=== PATIENT | female | born 1940 | race Caucasian/White ===

== ENCOUNTER 2018-02-09 09:38 | Emergency (ER) | payer MEDICARE, OTHER, SELFPAY ==
--- NOTE | 2018-02-09 09:46 | DI.CT_ITS ---
SYMPTOM/DIAGNOSIS: HEAD PAIN, S/P FALL CT BRAIN: Noncontrast examination. No priors for comparison. The ventricles and sulci are consistent with the patient's age. There are areas of decreased attenuation in the white matter consistent with small vessel ischemic disease. No acute infarct, hemorrhage, midline shift or mass effect is identified. The ventricles are intact. The basilar cisterns are patent. The visualized paranasal sinuses are clear. No fluid levels are seen. The mastoid air cells are well pneumatized. The calvarium is intact. IMPRESSION: No acute intracranial process.
--- NOTE | 2018-02-09 09:47 | W.ED.GENAD ---
Discharge Plan Disposition Patient Disposition: HOME Condition: Good Discharge Details Chief Complaint: Dizzy/Sync Clinical Impression: Concussion, Lightheaded Primary Care Provider: Cecilia Curiel ED Provider: Jean Griffin Home Meds and New Rx's Prescriptions: New meclizine 25 mg tablet 25 mg PO TID PRN (Reason: dizziness) Qty: 20 RF: 0 No Action sennosides [senna] 8.6 MG tablet 17.2 mg PO HS RF: 0 red yeast rice 600 MG capsule 2 tab PO DAILY RF: 0 blood sugar diagnostic [[employer] Ultra Test] 1 EACH strip 1 ea Miscellaneous DAILY Qty: 100 RF: 4 lancets [OneTouch Delica Lancets] 1 EACH misc 1 ea Intradermal DAILY Qty: 100 RF: 3 metronidazole 45 GM gel 1 applic Topical DAILY Qty: 45 RF: 11 miconazole nitrate 45 GM cream 2 - 5 gm Topical DAILY Qty: 45 RF: 12 sulfacetamide sodium-sulfur 25 GM lotion 1 - 2 gm Topical HS PRNQty: 25 RF: 12 losartan 50 MG tablet 50 mg PO DAILY Qty: 90 RF: 4 ibuprofen 800 MG tablet 800 mg PO BID Qty: 180 RF: 4 ranitidine HCl 150 MG tablet 150 mg PO DAILY Qty: 90 RF: 12 metformin 500 MG tablet 500 mg PO BID Qty: 180 RF: 4 spironolactone 25 MG tablet 25 mg PO DAILY Qty: 90 RF: 4 acetaminophen 650 MG tablet 2 tab PO BID PRNQty: 180 RF: 0 gabapentin 300 MG capsule 300 mg PO BID Qty: 180 RF: 3 Discharge Instructions Instructions: Concussion (ED) Additional Instructions: follow up with your primary care provider this week use your walker to help prevent falls if you have fevers, difficulty breathing, or severe pain in the head return to the emergency department for reevaluation Medical Decision Making 77 yo female comes in with cc of feeling lightheaded and having a headache since she fell on . Around 3am she fell out of bed and hit the back of her head, denies loc but since has had intermittent nausea, feeling lightheaded and nausea. Denies chest pain or pressure or sob. She has no focal neuro deficits, NIH of 0. No fevres or other infectious symptoms to suggest underlying infection and no urinary symptoms to suggest uti. Will eval for tbi with head ct and eval for electrolyte abnormalities. Has normal tele while feeling lightheaded so doubt syncope/presyncope/arythmia. labs and imaging shows no acute findings. She has had normal tele and vital signs here. Suspect concussion from the fall. ADvised f/u with pcp this week and return precautions given, she was advised to use her walker as well until her symptoms resolve Differential Diagnosis concussion, electrolyte abnormality, tbi, sdh Imaging Data Radiologic Study: Attestation: I personally reviewed and interpreted this imaging study as follows: Imaging: CT Scan My impression: no acute findings Radiologist's impression: no acute findings Lab Data Lab results reviewed: Yes I reviewed the patient's lab results. ECG Data Attestation: I personally reviewed and interpreted this ECG (s) as follows: Prior ECG tracings: available for review Interpretation: rate of 85, sinus rhythm, pr 156, no acute st t wave changes compared to old ekg HPI General Mode of arrival: wheelchair. Date/Time Provider Initiated Documentation: 02/09/18 09:40. Limitations to Documentation: no limitations. Information obtained by: patient. History of Present Illness 77 year old F presents to the emergency department with the chief complaint of feeling lightheaded, described as moderate, Patient started experiencing this day(s) (3) and it has been constant. No relieving factors improve symptom(s), No exacerbating factors reported . Patient notes no other symptoms.. Patient did receive the following treatments prior to arrival, none Related Data Home Medications Medication Instructions Recorded Confirmed red yeast rice 2 tab PO DAILY 07/12/12 02/09/18 sennosides [senna] 17.2 mg PO HS tab-cap 07/12/12 04/18/17 blood sugar diagnostic [OneTouch #100 strip 02/25/15 Ultra Test] lancets [OneTouch Delica Lancets] #100 ea 02/25/15 metronidazole 1 applic TOPICAL DAILY #45 gm 02/27/16 02/09/18 miconazole nitrate 2 - 5 gm TOPICAL DAILY #45 gm 08/30/16 02/09/18 sulfacetamide sodium-sulfur 1 - 2 gm TOPICAL HS PRN #25 gm 03/28/17 02/09/18 ibuprofen 800 mg PO BID #180 tab-cap 04/02/17 02/09/18 losartan 50 mg PO DAILY #90 tab-cap 04/02/17 02/09/18 ranitidine HCl 150 mg PO DAILY #90 tab-cap 04/02/17 02/09/18 acetaminophen 2 tab PO BID PRN #180 tab-cap 09/19/17 02/09/18 gabapentin 300 mg PO BID #180 tab-cap 09/19/17 02/09/18 metformin 500 mg PO BID #180 tab-cap 09/19/17 spironolactone 25 mg PO DAILY #90 tab 09/19/17 02/09/18 meclizine 25 mg PO TID PRN #20 tab 02/09/18 Previous Rx's Medication Instructions Recorded ibuprofen 800 mg PO BID #180 tab-cap 04/02/17 losartan 50 mg PO DAILY #90 tab-cap 04/02/17 ranitidine HCl 150 mg PO DAILY #90 tab-cap 04/02/17 gabapentin 300 mg PO BID #180 tab-cap 09/19/17 metformin 500 mg PO BID #180 tab-cap 09/19/17 spironolactone 25 mg PO DAILY #90 tab 09/19/17 meclizine 25 mg PO TID PRN #20 tab 02/09/18 Allergies Allergy/AdvReac Type Severity Reaction Status Date / Time amoxicillin trihydrate Allergy Severe RASH Unverified 02/09/18 09:54 [From Augmentin] Penicillins Allergy Severe Skin Rash Unverified 02/09/18 09:54 potassium clavulanate Allergy Severe RASH Unverified 02/09/18 09:54 [From Augmentin] aspirin AdvReac Intermediate CONFUSION, Unverified 02/09/18 09:54 TAKES IBUPROFEN OKAY pravastatin AdvReac Intermediate MYALGIAS Unverified 02/09/18 09:54 simvastatin AdvReac Intermediate MUSCLE PAIN Unverified 02/09/18 09:54 CO-Q10 AdvReac Mild MUSCLE PAIN Uncoded 02/09/18 09:54 Review of Systems Review of Systems All systems reviewed & are unremarkable except as noted in HPI and below Constitutional Denies chills and Denies fever(s) Eyes Denies loss of vision ENT Denies change in voice Cardiovascular Denies dyspnea Respiratory Denies dyspnea Gastrointestinal Denies abdominal pain and Denies vomiting Genitourinary Denies dysuria Musculoskeletal Denies joint swelling Integumentary/Breasts Denies rash Neurologic Denies loss of vision Psychiatric Denies depression Endocrine Denies cold intolerance and Denies heat intolerance Allergic/Immunologic Denies urticaria PFSH Family History Mother Black lung disease Chronic obstructive lung disease Father Neoplasm Sister No problems noted. Sister No problems noted. Brother Non-Hodgkin's lymphoma Brother No problems noted. Brother No problems noted. Grandfather No problems noted. Grandfather No problems noted. Grandmother Diabetes Neoplasm Grandmother No problems noted. Son No problems noted. Son No problems noted. Daughter No problems noted. Daughter No problems noted. Daughter No problems noted. Daughter No problems noted. Social History Smoking/Tobacco Use Status: Never Surgical History Extraction of cataract (~12/2007) Total replacement of hip Exam Const General: no acute distress Orientation: alert HENMT Ears: external ears normal General nose exam: external nose normal Mouth: moist mucous membranes Eyes General: appearance normal, both eyes and all related structures Neck Neck: normal visual inspection Resp Effort & Inspection: normal respiratory effort and able to speak in complete sentences Cardio Rate: regular rate Skin General skin exam: no rashes or lesions noted Neuro General: alert and oriented x3 Extrem General: normal to inspection Psych Mental Status: mental status grossly normal
[2018-02-09 09:49] VITALS: BP 152/78; PULSE 89; RESP 20; TEMP 36.7; O2SAT 97
[2018-02-09 10:05] VITALS: RESP 20
[2018-02-09 10:07] LABS: Abs Immature Grans 0.01 k/cumm (0.0-0.09); Absolute Basophil Count 0.04 k/cumm (0.0-0.2); Absolute Eosinophil Count 0.38 k/cumm (0.0-0.7); Absolute Monocyte Count 0.67 k/cumm (0.11-0.7); Absolute Neutrophil Count 5.15 k/cumm (1.2-6.7); Basophils % 0.5; Eosinophils % 4.7; HCT 41.3 % (36.0-46.0); HGB 13.3 g/dL (12.0-15.5); Immature Grans % 0.1; Lymphocytes % 23.3; Mean Corp. HGB Concentration 32.2 g/dL (32.0-36.0); Mean Corpuscular Hemoglobin 30.9 pg (27.0-33.0); Mean Platelet Volume 9.8 fL (8.0-11.0); Monocytes % 8.2; Neutrophils % 63.2; Platelet Count 263 x1000/uL (130-400); RBC Distribution Width 14.2 % (11.7-14.6); White Blood Cell Count 8.15 k/cumm (4.4-10.8)
[2018-02-09 10:23] LABS: ALT 20 U/L (12-78); AST 13 U/L (15-37); Albumin 3.7 g/dL (3.4-5.0); Alkaline Phosphatase 92 U/L (46-116); Anion Gap 11.3 mmol/L (3-11); BUN 37 mg/dL (7-18); Bilirubin, Total 0.4 mg/dL (0.2-1.0); CO2 23.7 mmol/L (21.0-32.0); CREATININE 1.17 mg/dL (0.55-1.02); Calcium 9.2 mg/dL (8.5-10.1); Chloride 102 mmol/L (98-107); Estimated GFR 45.09 (mL/min/1.73m2); Glucose 126 mg/dL (70-100); Potassium 4.5 mmol/L (3.5-5.1); Sodium 137 mmol/L (136-145); Total Protein 7.6 g/dL (6.4-8.2)
[2018-02-09 10:24] LABS: Troponin I < 0.02 ng/mL (0.00-0.06)
[2018-02-09 10:31] LABS: PTT Activated 19.2 sec (21.0-31.4); Prothrombin Time 9.8 sec (9.3-10.8)
--- NOTE | 2018-02-09 10:50 | DI.VRAD_ITS ---
EXAM: CT Head Without Intravenous Contrast EXAM DATE/TIME: 02/09/2018 9:48 AM CLINICAL HISTORY: 77 years old, female; Pain; Headache; Other: After fall TECHNIQUE: Axial computed tomography images of the head/brain without intravenous contrast. Coronal and sagittal reformatted images were created and reviewed. COMPARISON: No relevant prior studies available. FINDINGS: Brain: No acute intracranial hemorrhage. There is mild diffuse heterogeneity of the white matter attenuation, consistent with chronic white matter ischemic changes. Mild cerebral atrophy Ventricles: Normal. No ventriculomegaly. Bones/joints: Normal. No acute fracture. Sinuses: Normal as visualized. No acute sinusitis. Mastoid air cells: Normal as visualized. No mastoid effusion. Orbits: Surgical device in the left globe Soft tissues: Normal. IMPRESSION: No acute intracranial hemorrhage. Dictated and Authenticated by: Markos Cervantes MD. Ordering:CHARLES KEARNS MD
[2018-02-09 11:28] VITALS: BP 152/78; PULSE 89; RESP 20; TEMP 36.7; O2SAT 97
== END 2018-02-09 11:25 | disposition home or self-care (01) ==
PROVIDERS: Emergency Provider Emergency Medicine; PCP Family Medicine
DX: R42 Dizziness and giddiness (principal); S06.0X0A Concussion without loss of consciousness, initial encounter; W06.XXXA Fall from bed, initial encounter; R11.0 Nausea; R51 Headache; E11.9 Type 2 diabetes mellitus without complications; Z79.84 Long term (current) use of oral hypoglycemic drugs; I10 Essential (primary) hypertension
CPT/HCPCS: 80053; 93005; 99285; 70450; 83735; 84484; 85025; 85610; 85730; 93010

== ENCOUNTER 2018-07-13 10:34 | Emergency (ER) | payer MEDICARE, OTHER, SELFPAY ==
[2018-07-13 10:39] VITALS: BP 167/72; PULSE 90; RESP 20; TEMP 36.8; O2SAT 97
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
== END 2018-07-13 10:59 | disposition home or self-care (01) ==
LOC: ER 11:04
PROVIDERS: Emergency Provider Student in an Organized Health Care Education/Training Program; PCP Family Medicine
DX: S51.821A Laceration with foreign body of right forearm, initial encounter (principal); V49.9XXA Car occupant (driver) (passenger) injured in unspecified traffic accident, initial encounter; E11.9 Type 2 diabetes mellitus without complications; I10 Essential (primary) hypertension; Z79.84 Long term (current) use of oral hypoglycemic drugs
CPT/HCPCS: 99282

== ENCOUNTER 2019-01-16 09:09 | Outpatient (CLI) | payer MEDICARE, OTHER, SELFPAY ==
[2019-01-16 10:05] LABS: COMMENT (LAB VIEW ONLY) 59.67 mg/dL; Microalb ug/mg Crea 12.4 ug/mg Cr
[2019-01-16 10:35] LABS: ALT 19 U/L (14-59); AST 15 U/L (15-37); Albumin 3.8 g/dL (3.4-5.0); Alkaline Phosphatase 93 U/L (46-116); Anion Gap 11.2 mmol/L (3-11); BUN 32 mg/dL (7-18); Bilirubin, Total 0.4 mg/dL (0.2-1.0); CO2 23.8 mmol/L (21.0-32.0); CREATININE 1.38 mg/dL (0.55-1.02); Calcium 9.5 mg/dL (8.5-10.1); Calculated LDL 172 mg/dL; Chloride 105 mmol/L (98-107); Cholesterol 251 mg/dL (50-200); Estimated GFR 37.17 (mL/min/1.73m2); Glucose 134 mg/dL (70-100); HDL Cholesterol 49 mg/dL (40-60); Potassium 5.3 mmol/L (3.5-5.1); Sodium 140 mmol/L (136-145); Total Protein 7.4 g/dL (6.4-8.2); Triglyceride 150 mg/dL (30-150)
[2019-01-16 15:15] LABS: Hemoglobin A1C 6.9 % (4.5-6.2)
== END 2019-01-16 09:29 ==
PROVIDERS: PCP Family Medicine; Visit Provider Family Medicine
DX: E11.9 Type 2 diabetes mellitus without complications (principal); E78.5 Hyperlipidemia, unspecified
CPT/HCPCS: 36415; 80053; 80061; 82043; 82570; 83036

== ENCOUNTER 2019-06-01 12:37 | Emergency (ER) | payer MEDICARE, OTHER, SELFPAY ==
[2019-06-01 12:46] VITALS: BP 149/68; PULSE 94; RESP 16; TEMP 36.4; O2SAT 98
[2019-06-01 12:49] VITALS: RESP 14
--- NOTE | 2019-06-01 13:00 | DI.CT_ITS ---
EXAM: CT HEAD WO CLINICAL HISTORY: fall, head injury TECHNIQUE: Noncontrast COMPARISON: CT HEAD WO from 02/09/2018 FINDINGS: No intracranial hemorrhage, mass or infarct is seen. There is no evidence of skull fracture. The v entricles are normal in size. There is no significant atrophy. IMPRESSION: Negative head CT.
--- NOTE | 2019-06-01 14:06 | ED.GENADUL_ITS ---
Discharge Plan Disposition Patient Disposition: HOME Condition: Stable Discharge Details Chief Complaint: GenMedical Clinical Impression: Head injury, Injury of nose Primary Care Provider: Cecilia Curiel ED Provider: Flex Banks Home Meds and New Rx's Prescriptions: Continued (DME) OneTouch Ultra Test 1 EACH strip 1 ea Miscellaneous DAILY Qty: 100 RF: 4 (DME) lancets [OneTouch Delica Lancets] 1 EACH misc 1 ea Intradermal DAILY Qty: 100 RF: 3 metronidazole 45 GM gel 1 applic Topical DAILY Qty: 45 RF: 11 acetaminophen 650 MG tablet 2 tab PO BID PRNQty: 180 RF: 0 rosuvastatin [Crestor] 10 mg tablet 10 mg PO DAILY Qty: 90 RF: 4 gabapentin 300 mg capsule 300 mg PO BID Qty: 180 RF: 3 ibuprofen 800 mg tablet 800 mg PO BID Qty: 180 RF: 4 metformin 500 mg tablet 500 mg PO BID Qty: 180 RF: 4 losartan 50 mg tablet 50 mg PO DAILY Qty: 90 RF: 4 red yeast rice 600 mg capsule 1,200 mg PO DAILY Qty: 180 RF: 4 sennosides [senna] 8.6 mg tablet 17.2 mg PO HS Qty: 180 RF: 4 sulfacetamide sodium-sulfur 10-5 % (w/v) lotion 1 applic Topical HS PRN (Reason: rash) Qty: 25 RF: 6 famotidine 20 mg tablet 20 mg PO DAILY Qty: 90 RF: 5 spironolactone 25 mg tablet 25 mg PO BID Qty: 180 RF: 4 Discharge Instructions Instructions: Head Injury (ED), Nasal Contusion (ED) Additional Instructions: Cold compresses every 2 hours for 20 minutes. Oicz-efe-hkobcen medications as directed for symptomatic control. Please watch for new or worsening symptoms and return to the ER for any concerns. As we discussed, if the swelling goes down in the next 3-5 days and you notice a nasal deformity that is following up with ENT or plastic surgery would be recommended. Otherwise I recommend contacting your primary care provider for prompt outpatient reevaluation Medical Decision Making 79-year-old female who is not anticoagulated for mechanical slip and fall injuring her nose. This occurred around 8 AM. She appears well, nontoxic, no active epistasis, and she is neurologically intact. Will update tetanus and obtain CT imaging of head and brain without contrast. Patient and family are comfortable with this plan. Abrasion to the nose not require closure CT imaging negative per radiology Discussed findings with patient and family. They have no additional questions or concerns and are comfortable with discharge. We did discuss that films specifically of the nose were not taken. Once the swelling goes down if there is a nasal deformity that outpatient follow-up with plastic surgery or ENT is likely indicated. Encouraged to return to the ER for new or worsening symptoms Medical Records Medical records reviewed: Yes I reviewed the patient's medical records. Imaging Data Radiologic Study: Imaging: CT Scan Radiologist's impression: CT head without contrast read by radiology as negative HPI General Mode of arrival: ambulatory . Date/Time Provider Initiated Documentation: 06/01/19 12:55 . Limitations to Documentation: no limitations . Information obtained by: patient and family . HPI Narrative: 79-year-old female who had a mechanical trip and fall at home, falling forward striking her nose and breaking her glasses. She reports bleeding from her right nostril and having a small abrasion to her nose. Denies any LOC, headache, neck pain, other injury. Patient does not anticoagulated. She reports the pain at her nose is moderate. Denies any symptoms preceding the fall Related Data Home Medications Medication Instructions Recorded Confirmed OneTouch Ultra Test #100 strip 02/25/15 02/17/19 lancets [OneTouch Delica Lancets] #100 ea 02/25/15 02/17/19 metronidazole 1 applic TOPICAL DAILY #45 gm 02/27/16 02/17/19 acetaminophen 2 tab PO BID PRN #180 tab-cap 09/19/17 02/17/19 rosuvastatin 10 mg tablet 10 mg PO DAILY #90 tab 03/05/19 gabapentin 300 mg capsule 300 mg PO BID #180 tab-cap 04/06/19 ibuprofen 800 mg tablet 800 mg PO BID #180 tab-cap 04/06/19 losartan 50 mg tablet 50 mg PO DAILY #90 tab-cap 04/06/19 metformin 500 mg tablet 500 mg PO BID #180 tab-cap 04/06/19 red yeast rice 600 mg capsule 1,200 mg PO DAILY #180 cap 04/06/19 sennosides 8.6 mg tablet 17.2 mg PO HS #180 tab-cap 04/06/19 sulfacetamide sodium-sulfur 10 %-5 1 applic TOPICAL HS PRN #25 gm 04/06/19 % (w/v) lotion famotidine 20 mg tablet 20 mg PO DAILY #90 tab 04/07/19 spironolactone 25 mg tablet 25 mg PO BID #180 tab 04/14/19 Previous Rx's Medication Instructions Recorded rosuvastatin 10 mg tablet 10 mg PO DAILY #90 tab 03/05/19 gabapentin 300 mg capsule 300 mg PO BID #180 tab-cap 04/06/19 ibuprofen 800 mg tablet 800 mg PO BID #180 tab-cap 04/06/19 losartan 50 mg tablet 50 mg PO DAILY #90 tab-cap 04/06/19 metformin 500 mg tablet 500 mg PO BID #180 tab-cap 04/06/19 red yeast rice 600 mg capsule 1,200 mg PO DAILY #180 cap 04/06/19 sennosides 8.6 mg tablet 17.2 mg PO HS #180 tab-cap 04/06/19 sulfacetamide sodium-sulfur 10 %-5 1 applic TOPICAL HS PRN #25 gm 04/06/19 % (w/v) lotion famotidine 20 mg tablet 20 mg PO DAILY #90 tab 04/07/19 spironolactone 25 mg tablet 25 mg PO BID #180 tab 04/14/19 Allergies Allergy/AdvReac Type Severity Reaction Status Date / Time amoxicillin trihydrate Allergy Severe RASH Unverified 02/17/19 10:33 [From Augmentin] Penicillins Allergy Severe Skin Rash Unverified 02/17/19 10:33 potassium clavulanate Allergy Severe RASH Unverified 02/17/19 10:33 [From Augmentin] aspirin AdvReac Intermediate CONFUSION, Unverified 02/17/19 10:33 TAKES IBUPROFEN OKAY pravastatin AdvReac Intermediate MYALGIAS Unverified 02/17/19 10:33 simvastatin AdvReac Intermediate MUSCLE PAIN Unverified 02/17/19 10:33 CO-Q10 AdvReac Mild MUSCLE PAIN Uncoded 02/17/19 10:33 General Stated Complaint: GenMedical KELLEN: 4 Review of Systems Constitutional Constitutional: Denies headache(s) and Denies weakness Eyes Eyes: Denies change in vision ENT Ears, Nose, Mouth, and Throat: Denies headache(s) Cardiovascular Cardiovascular: Denies chest pain and Denies dyspnea Respiratory Respiratory: Reports cough and Denies dyspnea Gastrointestinal Gastrointestinal: Denies abdominal pain, Denies nausea and Denies vomiting Musculoskeletal Musculoskeletal: Denies back pain, Denies numbness and Denies tingling Integumentary/Breasts Skin/Breast: Denies rash Neurologic Neurologic: Denies headache(s), Denies numbness, Denies tingling and Denies weakness [facility] Medical History Aftercare following explantation of hip joint prosthesis (Inactive 06/27/14) Aftercare for long-term (current) use of antibiotics (Inactive 06/27/14) B12 deficiency (Inactive) Infection and inflammatory reaction due to internal joint prosthesis (Inactive 06/27/14) 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 Sister No problems noted. Brother , 47 Non-Hodgkin's lymphoma Brother No problems noted. Brother No problems noted. Maternal Grandfather No problems noted. Paternal Grandfather No problems noted. Maternal Grandmother Diabetes Breast cancer Paternal Grandmother No problems noted. Son No problems noted. Son No problems noted. Daughter No problems noted. Daughter No problems noted. Daughter No problems noted. Daughter No problems noted. Social History Smoking/Tobacco Use Status: Never Alcohol Intake: current Alcohol Intake frequency: a few times a month Alcohol type: wine and hard liquor Drug use: Never Substance use type: does not use Caregiver/Support person: Yes Household members: spouse Housing: house Communication Needs: None Do you need help understanding health information?: Rarely Pets and animals: No Sexually active: Yes Do you think of yourself as: straight/heterosexual Current gender identity: female What is your relationship status?: How often do you talk on the phone with friends or family?: once per week How often do you get together with friends or relatives?: once per week How often do you attend restorationism or religion services?: 4 or more times per year Do you belong to any clubs or organized social groups?: yes Panel score (0-1 are the most socially isolated patients): 3 What type of physical activity do you participate in: running Duration: 15-30 minutes/day Frequency: 3-4 times per week Effie/Yazdanism: Restorationism Special effie needs: No Seatbelt use: always Drive intox or ride 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 Do you feel safe at home: Yes Do you feel safe in your relationship?: Yes Exam Const General: cooperative, healthy appearing, comfortable and no acute distress Orientation: alert and awake HENMT Head: normal to inspection, no palpable skull fracture, normocephalic and atraumatic Ears: external ears normal, TM's normal bilaterally and EAC's normal General nose exam: epistaxis bilaterally (No active bleeding, dried crusted blood bilaterally) and external nose abnormal nasal abrasion and other (Swelling and ecchymosis, no deformity) Face and sinus: normal facial exam Mouth: moist mucous membranes Throat: posterior oropharynx normal Eyes General: appearance normal, both eyes and all related structures Alignment and Position: alignment normal Periorbital: periorbital findings normal Eyelids: eyelids normal Conjunctivae: conjunctivae normal Sclera: sclerae normal Cornea: corneas normal Pupils: PERRL EOM: EOM intact bilaterally Direct ophthalmoscopy: normal light reflex Neck Neck: normal visual inspection, full ROM, trachea midline and supple Resp Effort & Inspection: normal respiratory effort and able to speak in complete sentences Auscultation: clear to auscultation bilaterally Cardio Rate: regular rate Rhythm: regular rhythm GI Palpation: soft and nontender Back/Spine/Pelvis Back: No back tenderness Skin General skin exam: no rashes or lesions noted Neuro General: alert, awake, oriented x3, moves all extremities and no focal motor deficits Cranial Nerves: CN's II-XI intact bilaterally Cognition: normal cognition Speech: speech normal Gait: normal gait Motor: muscle tone normal throughout and strength 5/5 throughout Sensory Exam: no sensory deficits noted Extrem General: normal to inspection and full ROM Psych Appearance: grossly normal Mental Status: mental status grossly normal Course Vital Signs Vital signs: Vital Signs Temperature 36.4 C L 06/01/19 12:46 Pulse 94 H 06/01/19 12:46 Respiratory Rate 16 06/01/19 12:46 Blood Pressure 149/68 H 06/01/19 12:46 Pulse Oximetry 98 06/01/19 12:46 Temperature 36.4 C L 06/01/19 12:46 Temperature Source Tympanic 06/01/19 12:46 Pulse 94 H 06/01/19 12:46 Respiratory Rate 14 06/01/19 12:49 Respiratory Effort Non-Labored 06/01/19 12:49 Blood Pressure 149/68 H 06/01/19 12:46 Blood Pressure Position Sitting 06/01/19 12:46 Pulse Oximetry 98 06/01/19 12:46 Oxygen Delivery Method Room Air 06/01/19 12:46 Oxygen Flow Rate 0 06/01/19 12:46
[2019-06-01 14:40] VITALS: BP 113/60; PULSE 94; RESP 20; TEMP 36.7; O2SAT 97
== END 2019-06-01 14:59 | disposition home or self-care (01) ==
PROVIDERS: Emergency Provider Physician Assistant; PCP Family Medicine
DX: S00.31XA Abrasion of nose, initial encounter (principal); S09.90XA Unspecified injury of head, initial encounter; R04.0 Epistaxis; W01.10XA Fall on same level from slipping, tripping and stumbling with subsequent striking against unspecified object, initial encounter
CPT/HCPCS: 90471; 99284; 70450

== ENCOUNTER 2019-12-14 03:06 | Outpatient (CLI) | payer MEDICARE, OTHER, SELFPAY ==
[2019-12-14 09:52] LABS: ALT 14 U/L (14-59); AST 10 U/L (15-37); Albumin 3.8 g/dL (3.4-5.0); Alkaline Phosphatase 69 U/L (46-116); Anion Gap 8.6 mmol/L (3-11); BUN 20 mg/dL (7-18); Bilirubin, Total 0.4 mg/dL (0.2-1.0); CO2 26.4 mmol/L (21.0-32.0); CREATININE 1.13 mg/dL (0.55-1.02); Chloride 107 mmol/L (98-107); Estimated GFR 46.69 (mL/min/1.73m2); Glucose 138 mg/dL (74-106); Potassium 4.8 mmol/L (3.5-5.1); Sodium 142 mmol/L (136-145); Total Protein 7.1 g/dL (6.4-8.2)
== END 2019-12-14 03:26 ==
PROVIDERS: PCP Family Medicine; Visit Provider Family Medicine
DX: E11.9 Type 2 diabetes mellitus without complications (principal); I10 Essential (primary) hypertension
CPT/HCPCS: 36415; 80053

== ENCOUNTER 2020-03-31 03:39 | Outpatient (CLI) | payer MEDICARE, OTHER, SELFPAY ==
[2020-03-31 12:52] LABS: COMMENT (LAB VIEW ONLY) 74.32 mg/dL; Microalb ug/mg Crea 6.7 ug/mg Cr
[2020-03-31 12:58] LABS: ALT 23 U/L (14-59); AST 13 U/L (15-37); Alkaline Phosphatase 70 U/L (46-116); BUN 24 mg/dL (7-18); Bilirubin, Total 0.4 mg/dL (0.2-1.0); Calcium 9.3 mg/dL (8.5-10.1); Calculated LDL 82 mg/dL (<100); Chloride 107 mmol/L (98-107); Cholesterol 157 mg/dL (<200); Estimated GFR 43.56 (mL/min/1.73m2); Glucose 138 mg/dL (74-106); HDL Cholesterol 48 mg/dL (40-60); Potassium 4.9 mmol/L (3.5-5.1); Sodium 141 mmol/L (136-145); Total Protein 7.3 g/dL (6.4-8.2); Triglyceride 136 mg/dL (<150)
[2020-03-31 13:36] LABS: Hemoglobin A1C 7.2 % (<5.7)
== END 2020-03-31 03:59 ==
PROVIDERS: PCP Family Medicine; Visit Provider Family Medicine
DX: E11.9 Type 2 diabetes mellitus without complications (principal); E78.5 Hyperlipidemia, unspecified; I10 Essential (primary) hypertension
CPT/HCPCS: 36415; 80053; 80061; 82043; 82570; 83036

== ENCOUNTER 2020-07-14 21:28 | Outpatient (REF) | payer MEDICARE, OTHER, SELFPAY ==
[2020-07-14 14:19] LABS: Hemoglobin A1C 7.3 % (<5.7)
== END 2020-07-14 21:29 | disposition home or self-care (01) ==
LOC: LBN 21:28
PROVIDERS: PCP Family Medicine; Visit Provider Family Medicine
DX: E11.9 Type 2 diabetes mellitus without complications (principal)
CPT/HCPCS: 83036

== ENCOUNTER 2021-04-06 03:09 | Outpatient (CLI) | payer MEDICARE, OTHER, SELFPAY ==
--- NOTE | 2021-04-06 06:45 | DI.CT_ITS ---
Exam(s) CT NECK W EXAM: CT NECK W CLINICAL HISTORY: right angle jaw pain and fullness.r22.9. TECHNIQUE: Imaging Protocol: Axial computed tomography images with coronal and sagittal reformatted images were created and reviewed. CONTRAST MATERIAL: Intravenous: Omnipaque 350 Contrast volume:100 mL COMPARISON: CT CT HEAD WO from 06/01/2019 FINDINGS: There is artifact from the patient's dental amalgam. Orbits and orbital soft tissues: Within normal limits. Visualized paranasal sinuses: There is mild mucosal thickening in the maxillary sinuses bilaterally. No fluid levels are seen. The mastoid air cells are clear. Nasopharynx: Within normal limits. Oropharynx: Within normal limits. Hypopharynx: Within normal limits. Larynx: Within normal limits. Retropharyngeal space: Within normal limits. Parotids/submandibular: There is a 0.6 x 0.5 cm round enhancing lesion in the right parotid gland. It lies near where the marker was placed on the skin surface. The parotid and submandibular glands a re otherwise unremarkable. Thyroid gland: Within normal limits. Lymphadenopathy: There is scattered lymph nodes seen along the level one to level three all measurin g less than 8 mm in short axis diameter which are physiologic in nature. Trachea: Within normal limits. Lung apices: Within normal limits. Bones: Within normal limits. Carotids/Jugular: Atherosclerosis. Soft tissues: Within normal limits. IMPRESSION: 0.6 cm round homogeneously enhancing nodule in the right parotid gland. The finding is nonspecific d ifferential considerations include intraparenchymal lymph node, Warthin's tumor or neoplasm. RADIATION DOSE DELIVERED: 560.08mGy.cm Total DLP DATA REPOSITORY: All CT scans at this facility are submitted to the National Radiology Data Registry (NRDR) Dose Index Registry (DIR) with the [employer] (ACR). RADIATION OPTIMIZATION: All CT scans at this facility use at least one of these dose optimization te chniques: automated exposure control; mA and/or kV adjustment per patient size (includes targeted exa ms where dose is matched to clinical indication); or iterative reconstruction.
[2021-04-06 08:50] LABS: ESR 35 mm/hr (0-30)
[2021-04-06 08:51] LABS: Abs Immature Grans 0.03 10^3/uL (0.0-0.06); Absolute Basophil Count 0.07 10^3/uL (0.0-0.2); Absolute Lymphocyte Count 1.53 10^3/uL (1.2-3.4); Absolute Monocyte Count 0.68 10^3/uL (0.1-0.8); Basophils % 0.9; Eosinophils % 3.7; HCT 39.9 % (36.0-46.0); HGB 12.2 g/dL (11.2-15.7); Immature Grans % 0.4; Lymphocytes % 18.6; MCH 29.8 pg (27.0-33.0); MCHC 30.6 % (32.0-36.0); MCV 97.3 fL (80-95); MPV 9.6 fL (8.0-11.0); Monocytes % 8.3; Neutrophils % 68.1; Nucleated RBC 0 %; Platelet Count 233 10^3/uL (130-400); RDW 14.1 % (11.7-14.6); WBC 8.21 10^3/uL (4.4-10.8)
[2021-04-06 09:01] LABS: CREATININE 1.3 mg/dL (0.55-1.02); Estimated GFR 39.61 (mL/min/1.73m2)
[2021-04-06] MEDS: Omnipaque 350 MG/ML 100 ML BTL IJ (09:32)
== END 2021-04-06 03:29 ==
PROVIDERS: PCP Family Medicine; Visit Provider Family Medicine
DX: R22.9 Localized swelling, mass and lump, unspecified (principal); D49.0 Neoplasm of unspecified behavior of digestive system
CPT/HCPCS: 70491; 85652; 82565; 85025; J3490

== ENCOUNTER 2021-10-03 03:20 | Outpatient (CLI) | payer MEDICARE, OTHER, SELFPAY ==
[2021-10-03 12:41] LABS: COMMENT (LAB VIEW ONLY) 28.85 mg/dL; Microalb ug/mg Crea 18.4 ug/mg Cr
[2021-10-03 12:42] LABS: Hemoglobin A1C 7.3 % (<5.7)
[2021-10-03 12:43] LABS: ALT 21 U/L (14-59); AST 14 U/L (15-37); Albumin 3.8 g/dL (3.4-5.0); Alkaline Phosphatase 76 U/L (46-116); Anion Gap 11.7 mmol/L (3-11); BUN 27 mg/dL (7-18); Bilirubin, Total 0.3 mg/dL (0.2-1.0); CO2 23.3 mmol/L (21.0-32.0); CREATININE 1.2 mg/dL (0.55-1.02); Calcium 9.1 mg/dL (8.5-10.1); Calculated LDL 65 mg/dL (<100); Chloride 105 mmol/L (98-107); Cholesterol 141 mg/dL (<200); Estimated GFR 43.34 (mL/min/1.73m2); Glucose 155 mg/dL (74-106); HDL Cholesterol 52 mg/dL (40-60); Potassium 4.7 mmol/L (3.5-5.1); Sodium 140 mmol/L (136-145); Total Protein 7.4 g/dL (6.4-8.2); Triglyceride 121 mg/dL (<150)
== END 2021-10-03 03:21 | disposition home or self-care (01) ==
LOC: LOS 03:21
PROVIDERS: PCP Family Medicine; Visit Provider Family Medicine
DX: E78.5 Hyperlipidemia, unspecified (principal); I10 Essential (primary) hypertension; E11.9 Type 2 diabetes mellitus without complications
CPT/HCPCS: 36415; 80053; 80061; 82043; 82570; 83036

== ENCOUNTER 2021-10-09 21:36 | Emergency (ER) | payer MEDICARE, OTHER, SELFPAY ==
[2021-10-09] VITALS (18 sets, daily range): BP systolic 143–164; BP diastolic 71–90; PULSE 82–93; RESP 11–26; TEMP 36.6; O2SAT 83–98
--- NOTE | 2021-10-09 21:45 | RT.EKG_ITS ---
APPROVED REPORT Exam: Resting ECG Reason for Exam: chest pain Patient Location: E HR:93 bpm ECG Measurements Heart Rate 93 AXIS NY 211 P 28 QRSd 104 QRS 80 QT 354 T 8 QTc 441 Conclusion Sinus rhythm...normal P axis, V-rate 60- 99 Borderline prolonged NY interval...NY >207, V-rate 91-120
--- OUTSIDE RECORDS SUMMARY | 2021-10-09 21:46 | XMS_ITS | Encounter Summary ---
:1940 Author Organization [facility] [place] [address] Care Team Providers Name Role Phone Cecilia Curiel MD Primary Care Provider Reason for Visit Reason Comments Aftercare Of [facility] THR rev 10/19/2014 Encounter Details Date Type Department Care Team Description 10/25/2016 Office Visit Orthopaedics at [facility] Noe Peraza, Status post revision of tota l hip replacement, LEFT Dr. Arriola DOS: 10/19/2014; [facility] Status post total replacement [place] [address] [place] [address] ORTHOPAEDIC SURGERY [place], [place] [address] Social History Tobacco Use Types Packs/Day Years Used Date Never Smoker Smokeless Tobacco: Never Used Alcohol Use Standard Drinks/Week Comments Yes 2.5 (1 standard drink = 0.6 oz pure alco hol) occasionally Alcohol Habits Answer Date Recorded How often do you have a drink containing alcohol? Not asked How many drinks containing alcohol do you have on a Not aske d typical day when you are drinking? How often do you have six or more drinks on one occasion? No t asked Comment: occasionally 01/26/2014 Sex Assigned at Date Recorded Not on file documented as of this encounter Last Filed Vital Signs Vital Sign Reading Time Taken Comments Blood Pressure 113/46 10/25/2016 1:12 PM EDT Pulse 84 10/25/2016 1:12 PM EDT Temperature - - Respiratory Rate - - Oxygen Saturation - - Inhaled Oxygen Concentration - - Weight 101.2 kg (223 lb) 10/25/2016 1:12 PM EDT pt repo rted Height 157.5 cm (5' 2) 10/25/2016 1:12 PM EDT pt repor terri Body Mass Index 40.79 10/25/2016 1:12 PM EDT documented in this encounter Progress Notes Noe Peraza PA - 10/25/2016 1:30 PM EDT Arthroplasty/Orthopaedic History: 1. Left MILTON 05/14/12 Dr. Monte ([facility]) 2. I+D Left hip wound 05/01/13, Dr. Monte 3. I+D and vac placement 07/07/13, Dr. Monte 4. R MILTON September 21, 2009 Dr. Monte 5. S/P Dr. Arriola s/p Left hip explant and antibiotic spacer on 06/23/2014. MSSA treated with Ceftriaxone 6. Dr. Arriola DOS: 10/19/2014 Reimplantation of MILTON after antibiotic spacer. HPI: Marcia Palma is a very pleasant 76 y.o. year-old female and is now 2 and 7 years post bilateral total hip replacement and total hip revision The patient has been doing great, no pains. The patient is not having any pain.. No fevers, chills, nausea, vomiting, or symptoms of infection. Marcia has been ambulating with no assistive device and a cane. Patient denies any signs or symptoms of infection, groin pain, thigh pain, sense of instability. Patient is happy with her progress status post multiply infected multiply revised hip. 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 ROS: Denies: fever, chills, night sweats, nausea, or vomiting BP 113/46 Pulse 84 Ht 157.5 cm (5' 2) Comment: pt reported Wt (!) 101.2 kg (223 lb) Comment:pt reported BMI 40.79 kg/m2 Physical Exam: Well-appearing female in no acute distress. Alert and Oriented x 3 and answers all questions appropriately. I have made the following determinations: Post Op Right Hip Exam: Leg length: Longer leg: equal Limb Length discrepancy: 0cm Motion: Flexion contracture: 0 Total degrees of Flexion:90 Total degrees of Abduction:30 Total degrees of Ext Rotation: 25 Total degrees of Internal Rotation: 15 Gait Abnormality: Normal Pulses Palpable: Right PT: Yes Right DP:Yes Motor/Sensory: Right Distal Motor: Normal Distal Sensory: Normal Hip Abductors 5 Trendelenburg test: negative Post Op Left Hip Exam: Leg Length: Longer leg: equal Limb Length discrepancy: 0cm Motion: Flexion contracture: 0 Total degrees of Flexion: 90 Total degrees of Abduction: 30 Total degrees of Ext Rotation: 20 Total degrees of Internal Rotation: 10 Gait Abnormality: Normal Pulses Palpable: Left PT: Yes Left DP: Yes Motor/Sensory: Left Distal Motor: Normal Distal Sensory: Normal Hip Abductors: 5 Trendelenburg test: negative Negative log roll and axial load test bilaterally. X-RAYS: Multiple radiographic views were obtained at my request and reviewed with the patient. X-rays show a well-placed prosthesis with no evidence of fracture, subsidence, loosening, or periprosthetic complication. No interval change., no eccentric wear. Questionnaire Responses: [facility] Surgical Postop Visit 10/25/2016 PROMIS-10 General Health Very Good PROMIS-10 Quality of Life Very Good PROMIS-10 Physical Health Very Good PROMIS-10 Mental Health Very Good PROMIS-10 Social Activity Excellent PROMIS-10 Everyday Activities Not at all PROMIS-10 Pain 0 -No Pain PROMIS-10 Fatigue Moderate PROMIS-10 Social Roles Excellent PROMIS-10 Anxious or Depressed Never PROMIS PHYSICAL HEALTH SCORE 42.3 PROMIS MENTAL HEALTH SCORE 59 HOOS JR Scores 76.78 Problems with surgical incision/wound after surgery No Gone to ER since knee surgery No Admitted to hospital since recent ortho surgery No Additional surgery on same body part No MILTON Grade 10 Pain in other HIP None Back pain at this moment None Satisfaction with Treatment Satisfied Choose Same Treatment Again Definitely yes Orthopead[facility] Response 10/25/2016 HOOS JR Scores 76.78 OSWESTRY DISABILITY INDEX - Spine [facility] Response 10/25/2016 Oswestry (RAQUEL) Score - HOOS JR Scores 76.78 ASSESSMENT/PLAN: Ms. Palma is a 76 y.o. year old female status post bilateral total hip replacement and total hip revision Doing well postoperatively. Continue weightbearing as tolerated and working on range of motion. We will see her back in 3 years for repeat examination. X-rays will be needed at that time. Patient may return to normal activities as her pain and function allow. We reviewed monitoring for infection, continuing home exercise program. We discussed the appropriate precautions surrounding dental prophylaxis; according to the AAOS Appropriate Use Criteria we do recommend antibiotic use prior to dental procedures for Marcia. Recommended antibiotic: Amoxicillin (50mg/kg, maximum 2 gm) 1 hour prior to dental work; dose: 2 grams prior If Marcia has any changes in health status we recommend she contact our office prior to dental procedures for updated recommendations We also discussed maintaining good foot care and giving prompt attention to any source of infection throughout the body including foot ulcers and urinary tract infections. All questions were answered. Signed: ASUNCION SANCHEZ 10/25/2016 documented in this encounter Plan of Treatment Not on filedocumented as of this encounter Visit Diagnoses Diagnosis Status post revision of total hip replac ement, LEFT Dr. Arriola DOS: 10/19/2014 Hip joint replacement by other means Status post total replacement of right h ip documented in this encounter Care Teams Store Detective Relationship Specialty Start Date End Date Cecilia Curiel MD PCP - General Family Medicine 10/26/[address] [place] [address] [address] [place] [address] documented as of this encounter
--- OUTSIDE RECORDS SUMMARY | 2021-10-09 21:46 | XMS_ITS | Encounter Summary ---
:1940 Author Organization [facility] Address [address] [place] [address] Care Team Providers Name Role Phone Cecilia Curiel MD Primary Care Provider Reason for Visit Reason Comments Aftercare Of Tjr Lt MILTON Rev DOS 10/19/14 Encounter Details Date Type Department Care Team Description 10/26/2015 Office Visit Orthopaedics at [facility] [place] Noe Peraza, Status post revision [facility] of total hip Drive [facility] replacement[place] [address] Arriola DOS: [phone] ORTHOPAEDIC 10/19/2014 (Prim tiffany SURGERY Dx) [place], [place] [address] Social History Tobacco Use Types [...] Sign Reading Time Taken Comments Blood Pressure 127/52 10/26/2015 1:40 PM EDT Pulse 90 10/26/2015 1:40 PM EDT Temperature - - Respiratory Rate - - Oxygen Saturation - - Inhaled Oxygen Concentration - - Weight 101.3 kg (223 lb 6.4 10/26/2015 1:40 PM fully cl othed oz) EDT Height 158.8 cm (5' 2.5) 10/26/2015 1:40 PM with shoes EDT Body Mass Index 40.21 10/26/2015 1:40 PM EDT documented in this encounter Progress Notes Noe Peraza PA - 10/26/2015 2:00 PM EDT Arthroplasty/Orthopaedic History: 1. Left MILTON 05/14/12 Dr. Monte ([facility]) 2. I+D Left hip wound 05/01/13, Dr. Monte 3. I+D and vac placement 07/07/13, Dr. Monte 4. R MILTON September 21, 2009 Dr. Monte 5. S/P Dr. Arriola s/p Left hip explant and antibiotic spacer on 06/23/2014. MSSA treated with Ceftriaxone 6. Dr. Arriola DOS: 10/19/2014 Reimplantation of MILTON after antibiotic spacer. HPI: Marcia Palma is a very pleasant 75 y.o. year-old female who presents for a 1 years follow-up of the above procedure. The patient has been doing well and her pain is markedly improved over preoperative status. No fevers, chills, nausea, vomiting, or symptoms of infection. Marcia has been ambulating with no assistive device. Patient denies systemic symptoms of infection, incision site concerns. Patient denies groin pain, thigh pain, sense of instability, or leg length discrepancy. She is yet to be to the dentist after this revision surgery. She inquires today about antibiotics prior to the dental plan. Physical Exam: Well-appearing female in no acute distress. Alert and Oriented x 3 and answers all questions appropriately. Hip Exam: Left Leg Length: Longer leg: equal Limb Length discrepancy: 0cm Motion: Flexion contracture: 0 Total degrees of Flexion: 120 Total degrees of Abduction: 35 Total degrees of Ext Rotation: 10 Total degrees of Internal Rotation: 20 Gait Abnormality: Normal Pulses Palpable: Left PT: Yes Left DP: Yes Motor/Sensory: Left Distal Motor: Normal Distal Sensory: Normal Hip Abductors: 5 Trendelenburg test: negative X-RAYS: Multiple radiographic views were obtained at my request and reviewed with the patient. X-rays show a well-placed prosthesis with no evidence of fracture, subsidence, loosening, or periprosthetic complication. No evidence of eccentric wear, or interval change when comparing prior films. Questionnaire Responses: [facility] Surgical Postop Visit 10/26/2015 PROMIS-10 General Health Very Good PROMIS-10 Quality of Life - PROMIS-10 Physical Health - PROMIS-10 Mental Health Very Good PROMIS-10 Social Activity Very Good PROMIS-10 Everyday Activities Moderately PROMIS-10 Pain 0 -No Pain PROMIS-10 Fatigue Mild PROMIS-10 Social Roles Good PROMIS-10 Anxious or Depressed - PROMIS PHYSICAL HEALTH SCORE 0 PROMIS MENTAL HEALTH SCORE 0 Gone to ER since knee surgery No Admitted to hospital since recent ortho surgery No Additional surgery on same body part No Orthopeadics [facility] Response 10/26/2015 HOOS-PS Scores 20 OSWESTRY DISABILITY INDEX - Spine [facility] Response 12/13/2011 Oswestry (RAQUEL) Score 40 ASSESSMENT/PLAN: Ms. Palma is a 75 y.o. year old female 1 years post-op and doing well. Continue weightbearing as tolerated and working on range of motion, and we will see her back in 1 years for repeat examination. X-rays will be needed at that time. Patient may return to normal activities as her pain and function allow. We discussed monitoring for infection, treating any infections with later or at least seek evaluation. Patient is happy with her result, and will monitor for infection. We had a long discussion in regards to antibiotic prophylaxsis prior to dental procedures. We discussed the most recent data, indications for prophylactic antibiotics which include but are not limited to current or recent cancer, chemotherapy medications, immune system disorders, immune system compromising medications, HIV, hepatitis, diabetes, or history of prosthetic joint infection. Otherwise, if healthy, prophylactic antibiotics are not indicated and if taken, there is a risk of breeding antibiotic resistance along with side effect vs. adverse reaction such as anaphylaxis. We discussed with herprior history of infection, we would likely keep her on antibiotics prior to dental appointments. All questions were answered. Signed: ASUNCION SANCHEZ 10/26/2015 documented in this encounter Plan of Treatment Not on filedocumented as of this encounter Visit Diagnoses Diagnosis Status post revision of total hip replac ement, SHERRY Arriola DOS: 10/19/2014 - Primary Hip joint replacement by other means documented in this encounter Care Teams Cio Relationship Specialty Start Date End Date Cecilia Curiel MD PCP - General Family Medicine 10/26/15 [address] [place] [address] documented as of this encounter
--- OUTSIDE RECORDS SUMMARY | 2021-10-09 21:46 | XMS_ITS | Encounter Summary ---
:1940 Author Organization [facility] Address [address] [place] [address] Care Team Providers Name Role Phone Nayla Caputo MD Primary Care Provider Reason for Visit Reason Comments Aftercare Of Tjr Lt MILTON REV 10/19/14 Encounter Details Date Type Department Care Team Description 11/29/2014 Office Visit Orthopaedics [place] [facility] [place] Status post revision [facility] Petar Garza MD [facility] [place] [address] replacement, [place] [address] Flako DOS: [phone] 10/19/2014 (Prim tiffany Dx) Social History Tobacco Use Types Packs/Day Years [...] Sign Reading Time Taken Comments Blood Pressure 132/80 11/29/2014 10:57 AM EDT Pulse 71 11/29/2014 10:57 AM EDT Temperature 36.6 ??C (97.8 ??F) 11/29/2014 10:57 AM EDT oral Respiratory Rate - - Oxygen Saturation - - Inhaled Oxygen Concentration - - Weight 90.3 kg (199 lb) 11/29/2014 10:57 AM EDT clothed Height 157.5 cm (5' 2) 11/29/2014 10:57 AM EDT Body Mass Index 36.4 11/29/2014 10:57 AM EDT documented in this encounter Progress Notes Petar Garza MD - 11/29/2014 11:53 AM EDT I have seen the patient and reviewed Angela Davidson APRN's history/physical and I agree with the details as written. The assessment and plan were formulated in discussion with me and I agree with them as documented. No pain in hip. Off pain meds. Discharged from rehab and now home. Using cane. Wound healed with no signs of infection. F/u in 8 weeks with repeat xrays. Questionnaire Responses: myD-H Hip & Knee 12/13/2011 01/26/2014 04/12/2014 06/14/2014 08/02/2014 10/04/2014 11/29/2014 MODEMS Expectation 100 37.5 100 75 - 100 - MODEMS Satisfaction - - - - 100 - 33.33 VR12 - Physical Component Summary - 28.71 30.83 26.09 30.16 16.41 39.81 VR12 - Mental Component Summary - 57.58 63.97 64.83 71.08 68.8 66.22 PROMIS-10 General Health - Good Good Very Good Very Good - Very Good PROMIS-10 Quality of Life - Good Good Good Very Good Very Good Very Good PROMIS-10 Physical Health - Good Fair Good Very Good Very Good Very Good PROMIS-10 Mental Health - Very Good Good Very Good Excellent Very Good Excellent PROMIS-10 Social Activity and Relationship Satisfaction - Good Very Good Very Good Excellent Very Good Excellent PROMIS-10 Social Roles at Home and Work - Fair Good Fair Very Good Poor Excellent PROMIS-10 Everyday Physical Activities - Moderately Not at all A little A little Not at all - PROMIS-10 Anxious or Depressed last 7 days - Never Sometimes Rarely Never Sometimes Always PROMIS-10 Fatigue last 7 days - Severe Moderate Severe Moderate Moderate Mild PROMIS-10 Pain last 7 days - 0 -No Pain 0 -No Pain 0 -No Pain 0 -No Pain 9 0 -No Pain PROMIS PHYSICAL HEALTH SCORE (range 16-68) - 42.3 37.4 39.8 44.9 34.9 0 PROMIS MENTAL HEALTH SCORE (range 21-68) - 50.8 45.8 50.8 62.5 50.8 50.8 Arthritis Ladder - Hip - Heat and ice therapy Over the counter anti-inflammatory drugs (Advil, Aspirin, Aleve), Walking aids Heat and ice therapy, Over the counter anti-inflammatory drugs (Advil, Aspirin, Aleve), Regular exercise, Tylenol, Walking aids, Weight loss - Heat and ice therapy, Over the counter anti-inflammatory drugs (Advil, Aspirin, Aleve) - PETAR GARZA MD, MS 11/29/2014 Raquel Davidson, DATA REDUCTION TECHNICIAN - 11/29/2014 11:09 AM EDT Arthroplasty/Orthopaedic History: 1. Left MILTON 05/14/12 Dr. Monte ([facility]) 2. I+D Left hip wound 05/01/13, Dr. Monte 3. I+D and vac placement 07/07/13, Dr. Monte 4. R MILTON September 21, 2009 Dr. Monte 5. S/P Dr. Garza s/p Left hip explant and antibiotic spacer on 06/23/2014. MSSA treated with Ceftriaxone 6. Dr. Garza DOS: 10/19/2014 Reimplantation of MILTON after antibiotic spacer. HPI: Marcia Palma is a very pleasant 74 y.o. year-old female who presents for a 4 weeks follow-up of the above procedure. The patient has been doing very well and her pain is markedly improved over preoperative status. No fevers, chills, nausea, vomiting, or symptoms of infection. Marcia has been ambulating with a cane and working on a HEP. She is not taking narcotic pain medicine. No interval falls,Injuries or infections . Her appetite is good. Resolving loose stool. Her chronic medical problems have otherwise been stable. ROS: Denies fever, chills, nausea, vomiting, vision change, shortness of breath, chest pain, vision changes, headaches, bowel or bladder problem, ear, nose, sinus problem, neuro or psychiatric, or endocrine disorder not addressed above. Patient's medications, allergies, past medical, surgical, social and family histories were reviewed and updated as appropriate. Physical Exam: Filed Vitals: 11/29/14 1057 BP: 132/80 Pulse: 71 Temp: 36.6 ??C (97.8 ??F) Height: 157.5 cm (5' 2) Weight: 90.266 kg (199 lb) Body mass index is 36.39 kg/(m^2). Well-appearing female in no acute distress. Alert and Oriented x 3 and answers all questions appropriately. The incision is well healed, with no signs of infection. Hip Exam: Left Leg Length: Longer leg: equal Limb Length discrepancy: 0cm Motion: Flexion contracture: 0 Total degrees of Flexion: 90 Total degrees of Abduction: 5 Total degrees of Ext Rotation: 15 Total degrees of Internal Rotation: 5 Gait Abnormality: Antalgic Pulses Palpable: Left PT: Yes Left DP: Yes Motor/Sensory: Left Distal Motor: Normal Distal Sensory: Normal Hip Abductors: 4 Trendelenburg test: negative X-RAYS: Multiple radiographic views were obtained at my request and reviewed with the patient. X-rays show a well-placed prosthesis with no evidence of fracture, subsidence, loosening, or periprosthetic complication. Questionnaire Responses: [facility]-H Hip & Knee 12/13/2011 01/26/2014 04/12/2014 06/14/2014 08/02/2014 10/04/2014 11/29/2014 MODEMS Expectation 100 37.5 100 75 - 100 - MODEMS Satisfaction - - - - 100 - 33.33 VR12 - Physical Component Summary - 28.71 30.83 26.09 30.16 16.41 39.81 VR12 - Mental Component Summary - 57.58 63.97 64.83 71.08 68.8 66.22 PROMIS-10 General Health - Good Good Very Good Very Good - Very Good PROMIS-10 Quality of Life - Good Good Good Very Good Very Good Very Good PROMIS-10 Physical Health - Good Fair Good Very Good Very Good Very Good PROMIS-10 Mental Health - Very Good Good Very Good Excellent Very Good Excellent PROMIS-10 Social Activity and Relationship Satisfaction - Good Very Good Very Good Excellent Very Good Excellent PROMIS-10 Social Roles at Home and Work - Fair Good Fair Very Good Poor Excellent PROMIS-10 Everyday Physical Activities - Moderately Not at all A little A little Not at all - PROMIS-10 Anxious or Depressed last 7 days - Never Sometimes Rarely Never Sometimes Always PROMIS-10 Fatigue last 7 days - Severe Moderate Severe Moderate Moderate Mild PROMIS-10 Pain last 7 days - 0 -No Pain 0 -No Pain 0 -No Pain 0 -No Pain 9 0 -No Pain PROMIS PHYSICAL HEALTH SCORE (range 16-68) - 42.3 37.4 39.8 44.9 34.9 0 PROMIS MENTAL HEALTH SCORE (range 21-68) - 50.8 45.8 50.8 62.5 50.8 50.8 Arthritis Ladder - Hip - Heat and ice therapy Over the counter anti-inflammatory drugs (Advil, Aspirin, Aleve), Walking aids Heat and ice therapy, Over the counter anti-inflammatory drugs (Advil, Aspirin, Aleve), Regular exercise, Tylenol, Walking aids, Weight loss - Heat and ice therapy, Over the counter anti-inflammatory drugs (Advil, Aspirin, Aleve) - ASSESSMENT/PLAN: Ms. Palma is a 74 y.o. year old female 4 weeks post-op above surgical procedure and doing well. No complications noted. Continue weightbearing as tolerated and working on range of motion, and we will see her back in 2 months for repeat examination. No X-rays will be needed at that time. Patient may return to normal activities as her pain and function allow. We discussed the appropriate precautions surrounding dental prophylaxis. I stressed that she should avoid elective dental procedures for the first 6 months after surgery and then call the office for a prescription prior to any further dental work for the lifetime of the joint replacement. We also discussed maintaining good foot care and giving prompt attention to any source of infection throughout the body including foot ulcers and urinary tract infections. All questions were answered. Signed: RAQUEL DAVIDSON APRN 11/29/2014 documented in this encounter Miscellaneous Notes Addendum Note - Raquel Davidson APRN - 11/29/2014 11:39 AM EDT Addended by: RAQUEL DAVIDSON on: 11/29/2014 11:39 AM Modules accepted: Orders, Level of Service documented in this encounter Plan of Treatment Not on filedocumented as of this encounter Visit Diagnoses Diagnosis Status post revision of total hip replac SHERRY velásquez Dr. DOS: 10/19/2014 - Primary Hip joint replacement by other means documented in this encounter Care Teams Irrigation Flume Layer Relationship Specialty Start Date End Date Nayla Caputo MD PCP - General 12/13/11 10/25/15 [address] [place] [address] documented as of this encounter
--- OUTSIDE RECORDS SUMMARY | 2021-10-09 21:46 | XMS_ITS | Encounter Summary ---
:1940 Author Organization [facility] [place] [address] Care Team Providers Name Role Phone Nayla Caputo MD Primary Care Provider Encounter Details Date Type Department Care Team Description 11/10/2014 Anti-Coag Orthopaedics at [facility] [place] Swetha Dempsey S/P total hip Telephone Visit [facility] [place] [phone] Social History Tobacco Use Types Packs/Day Years [...] on file documented as of this encounter Progress Notes Swetha Dempsey RN - 11/10/2014 8:07 AM EDT Surgery: S/P left revision total hip arthroplasty 10/19/2014 (Dr. Arriola). I left a message for the patient to call back on 11/05/14. I spoke with Ms. Palma 11/08/14. Her Coumadin is being managed by her PCP since her discharge from rehab on 11/02/14. Patient knows how to contact the nurse if any further questions or concerns occur. documented in this encounter Plan of Treatment Not on filedocumented as of this encounter Visit Diagnoses Diagnosis S/P total hip arthroplasty Hip joint replacement by other means documented in this encounter Care Teams Lap Winding Machine Operator Relationship Specialty Start Date End Date Nayla Caputo MD PCP - General 12/13/11 10/25/15 [address] [place] [address] documented as of this encounter
--- OUTSIDE RECORDS SUMMARY | 2021-10-09 21:46 | XMS_ITS | Encounter Summary ---
:1940 Author Organization [facility] Address [address] [place] [address] Care Team Providers Name Role Phone Nayla Caputo MD Primary Care Provider Encounter Details Date Type Department Care Team Description 11/25/2014 Orders Only [place] [facility] [place] Petar Arriola Presence of left [facility] MD [place] [address] ORTHOPAEDIC SURGERY [place], [place] [address] Social History Tobacco Use Types [...] on file documented as of this encounter Plan of Treatment Not on filedocumented as of this encounter Results XR Pelvis And Lateral Hip (11/29/2014 10:10 AM EDT) Anatomical Region Laterality Modality Pelvis, Hip N/A Radiographic Imaging Specimen (Source) Anatomical Collection Method Collection Time Re ceived Time Location / / Volume Laterality 11/29/2014 10:10 AM EDT Impressions 11/29/2014 5:19 PM EDT IMPRESSION: Bilateral total hip arthroplasties witho ut change or complication. This report was reviewed by RUTHIE KNAPP AM, MD at 11/29/2014 5:14 PM Film and interpretation reviewed by the attending Narrative 11/29/2014 5:19 PM EDT EXAMINATION: PELVIS+LATERAL HIP/LEFT CLINICAL HISTORY: MILTON revision TECHNIQUE: AP view of the pelvis, latera l view of the left hip COMPARISON: Radiographs dating back to FINDINGS: Status post bilateral total hip arthropl asties. Prosthetic components are in unchanged positions.. No periprosthetic lucency or fracture. Procedure Note Ruthie Bone MD - 11/29/2014Formatti ng of this note might be different from the original. EXAMINATION: PELVIS+LATERAL HIP/LEFT CLINICAL HISTORY: MILTON revision TECHNIQUE: AP view of the pelvis, latera l view of the left hip COMPARISON: Radiographs dating back to FINDINGS: Status post bilateral total hip arthropl asties. Prosthetic components are in unchanged positions.. No periprosthetic lucency or fracture. IMPRESSION IMPRESSION: Bilateral total hip arthroplasties witho ut change or complication. This report was reviewed by RUTHIE KNAPP AM, MD at 11/29/2014 5:14 PM Film and interpretation reviewed by the attending Petar Arriola MD IMG DX ORDERABLES documented in this encounter Visit Diagnoses Diagnosis Presence of left artificial hip joint Hip joint replacement by other means Presence of left artificial hip joint Hip joint replacement by other means documented in this encounter Care Teams Care Technician Relationship Specialty Start Date End Date Nayla Caputo MD PCP - General 12/13/11 10/25/[address] [place] [id number] documented as of this encounter
--- OUTSIDE RECORDS SUMMARY | 2021-10-09 21:46 | XMS_ITS | Encounter Summary ---
:1940 [place] [address] Care Team Providers Name Role Phone Nayla Caputo MD Primary Care Provider Reason for Visit Reason Onset Date Comments Questions 11/03/2014 Encounter Details Date Type Department Care Team Description 11/03/2014 Telephone Orthopaedics at [facility] Petar Arriola MD Questions [facility] D rive [facility] [place] [address] ORTHOPAEDIC SURGERY [phone] [place], [place] [address] (Wo rk) Social History Tobacco Use Types Packs/Day Years [...] on file documented as of this encounter Miscellaneous Notes Telephone Encounter - Raquel Campbell RN - 11/03/2014 1:29 PM EDT Marcia went to rehab post op [facility] and rehab , I called Kelsey back left a voice mail message that said the patient was never dosed by [facility] post op.(she is on coumadin until Nov 16) Rehab must have directed the [facility] to call INR to their office. The coumadin dosing can be obtained by calling rehab and the above number. Telephone Encounter - Zonia Alston - 11/03/2014 12:54 PM EDT Who is calling: Kelsey Was this a new injury? no Have you had Surgery?yes If so when?10/19/2014 Who was the Surgeon?Flako What is the question:[facility] doctors office is calling asking if they will be responsible forpatients INR or if we will be also wanting to know the dosage she has been on documented in this encounter Plan of Treatment Not on filedocumented as of this encounter Visit Diagnoses Not on filedocumented in this encounter Care Teams Customer Service Manager Relationship Specialty Start Date End Date Nayla Caputo MD PCP - General 12/13/11 10/25/[address] [place] [id number] documented as of this encounter
--- OUTSIDE RECORDS SUMMARY | 2021-10-09 21:46 | XMS_ITS | Encounter Summary ---
:1940 Author Organization [facility] Address [address] [place] [address] Care Team Providers Name Role Phone Cecilia Curiel MD Primary Care Provider Reason for Visit Reason Comments Follow-up XR L MILTON Rev 10/19/14 Encounter Details Date Type Department Care Team Description 07/21/2020 Office Visit Orthopaedics at [facility] Noe Peraza, Status post total [facility] replacement of left [place] [address] [facility] [phone] ORTHOPAEDIC SURGERY [place], [place] [address] Social History Tobacco Use Types [...] Sign Reading Time Taken Comments Blood Pressure 132/62 07/21/2020 11:23 AM EDT Pulse 97 07/21/2020 11:23 AM EDT Temperature - - Respiratory Rate - - Oxygen Saturation - - Inhaled Oxygen Concentration - - Weight 103 kg (227 lb) 07/21/2020 11:23 AM EDT Height 158.8 cm (5' 2.5) 07/21/2020 11:23 AM EDT Body Mass Index 40.86 07/21/2020 11:23 AM EDT documented in this encounter Progress Notes Noe Peraza PA - 07/21/2020 11:40 AM EDT Arthroplasty/Orthopaedic History: 1. Left MILTON 05/14/12 Dr. oMnte ([facility]) 2. I+D Left hip wound 05/01/13, Dr. Monte 3. I+D and vac placement 07/07/13, Dr. Monte 4. R MILTON September 21, 2009 Dr. Monte 5. S/P Dr. Arriola s/p Left hip explant and antibiotic spacer on 06/23/2014. MSSA treated with Ceftriaxone 6. Dr. Arriola DOS: 10/19/2014 Reimplantation of MILTON after antibiotic spacer. HPI: Marcia Palma is a very pleasant 80 y.o. 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 Pain is controlled without any medications.. No fevers, chills, nausea, vomiting, or symptoms of infection. Marcia has been ambulating with a cane. She does endorse some right ankle pain, and some recent collapse of her arch on the instep of her foot. She denies any injury. This is improved with rest as well as a supportive brace Patient offers no complaints in regards to her bilateral hips. She denies hip pain, groin or thigh pain, or sense of instability. She denies any SxS of infection. ROS: Denies: fever, chills, night sweats, nausea, or vomiting BP 132/62 (BP Location (NBP): Left arm, Patient Position: Sitting, BP Cuff Sizes: Large Adult (32-43 cm)) Pulse 97 Ht 158.8 cm (5' 2.5) Wt 103 kg (227 lb) BMI 40.86 kg/m?? Physical Exam: Well-appearing female in no acute distress. Alert and Oriented x 3 and answers all questions appropriately. Hip Exam: Left Leg Length: Longer leg: equal Limb Length discrepancy: 0cm Motion: Flexion contracture: 0 Total degrees of Flexion: 100 Total degrees of Abduction: 40 Total degrees of Ext Rotation: 30 Total degrees of Internal Rotation: 10 Gait Abnormality: Normal Pulses Palpable: Left PT: Yes Left DP: Yes Motor/Sensory: Left Distal Motor: Normal Distal Sensory: Normal Hip Abductors: 5 Trendelenburg test: negative Medial longitudinal arch does drop upon weightbearing. This reconstitutes with a heel raise. TTP about the medial longitudinal arch. X-RAYS: Multiple radiographic views were obtained at my request and reviewed with the patient. X-rays show a well-placed prosthesis with no evidence of fracture, subsidence, loosening, or periprosthetic complication. Questionnaire Responses: [facility] Surgical Postop Visit 07/21/2020 PROMIS-10 General Health Very Good PROMIS-10 Quality of Life Excellent PROMIS-10 Physical Health Very Good PROMIS-10 Mental Health Excellent PROMIS-10 Social Activity Excellent PROMIS-10 Everyday Activities Mostly PROMIS-10 Pain 0 -No Pain PROMIS-10 Fatigue Mild PROMIS-10 Social Roles Excellent PROMIS-10 Anxious or Depressed Never PROMIS PHYSICAL HEALTH SCORE 54.1 PROMIS MENTAL HEALTH SCORE 67.6 HOOS JR Scores 85.26 Problems with surgical incision/wound after surgery No Gone to ER since knee surgery No Admitted to hospital since recent ortho surgery No Additional surgery on same body part No MILTON Grade 10 Pain in other HIP None Back pain at this moment Moderate Satisfaction with Treatment Satisfied Choose Same Treatment Again Definitely yes Orthopeadics [facility] Response 07/21/2020 HOOS JR Scores 85.26 OSWESTRY DISABILITY INDEX - Spine [facility] Response 07/21/2020 Oswestry (RAQUEL) Score - HOOS JR Scores 85.26 ASSESSMENT/PLAN: Ms. Palma is a 80 y.o. year old female status post left total hip revision. Doingwell postoperatively. Continue weightbearing as tolerated and working on range of motion. We will see her back in 5 years for repeat examination. X-rays will be needed at that time. Patient may return to normal activities as her pain and function allow. Discussed likely PTTD Recommend XR if still symptomatic s/p PT, stiff rigid shoe, RICES, NSAID. Reassurance provided in regards to her hips. With no pain, or gross changes on her plain films, likely everything is stable. Discussed monitoring for new hip, groin, or thigh pain, along with concerns of infection, and call back with any problems. We discussed the appropriate precautions surrounding dental prophylaxis; according to the AAOS Appropriate Use Criteria we do recommend antibiotic use prior to dental procedures for Marcia. Recommended antibiotic: Clindamycin 600 mg 1 hour prior to procedure If Marcia has any changes in health status we recommend she contact our office prior to dental procedures for updated recommendations We also discussed maintaining good foot care and giving prompt attention to any source of infection throughout the body including foot ulcers and urinary tract infections. All questions were answered. Signed: ASUNCION SANCHEZ 07/21/2020 documented in this encounter Plan of Treatment Not on filedocumented as of this encounter Results XR Pelvis and Hip 2 Views Left (07/21/2020 10:48 AM EDT) Anatomical Region Laterality Modality Pelvis, Hip Left Digital Radiography Specimen (Source) Anatomical Location Collection Method / Collectio n Time Received Time / Laterality Volume Impressions 07/21/2020 11:21 AM EDT Status post left total hip arthroplasty. Increased conspicuity of minimal periprosthetic lucency around the proxim al femoral stem unclear clinical significance. This finding is be correla terri with any clinical signs and symptoms of pain or loosening. Thank you for letting us participate in the care of this patient. ??If you are a health care provider and have any questi ons regarding this report, please contact the number below. ??For patients who have questions please contact the health patient care assistant that requested your imaging first. ? Narrative 07/21/2020 11:21 AM EDT EXAMINATION: XR PELVIS AND HIP 2 VIEWS LEFT CLINICAL HISTORY: S/P LEFT MILTON (as enter ed by ordering provider in the order requisition) TECHNIQUE: low AP view the pelvis. AP and frog leg lateral views of the left hip. COMPARISON: Pelvis and left hip radiographs, most re cently 05/18/2016 and dating back to 06/23/2014. FINDINGS: Status post left total hip arthroplasty. Minimal periprosthetic lucency around the proximal bone-metal interface of the femoral stem is slightly increased in conspicuity since 2017. No para prostati c fracture. The femoral head component is centered within the acetabular cup. Unchanged AP appearance of the right tot al hip arthroplasty. Procedure Note Griselda Jacobs MD - 07/21/2020Formattin g of this note might be different from the original. EXAMINATION: XR PELVIS AND HIP 2 VIEWS L EFT CLINICAL HISTORY: S/P LEFT MILTON (as enter ed by ordering provider in the order requisition) TECHNIQUE: low AP view the pelvis. AP and frog leg lateral views of the left hip. COMPARISON: Pelvis and left hip radiographs, most re cently 05/18/2016 and dating back to 06/23/2014. FINDINGS: Status post left total hip arthroplasty. Minimal periprosthetic lucency around the proximal bone-metal interface of the femoral stem is slightly increased in conspicuity since 2017. No para prostati c fracture. The femoral head component is centered within the acetabular cup. Unchanged AP appearance of the right tot al hip arthroplasty. IMPRESSION Status post left total hip arthroplasty. Increased conspicuity of minimal periprosthetic lucency around the proxim al femoral stem unclear clinical significance. This finding is be correla terri with any clinical signs and symptoms of pain or loosening. Thank you for letting us participate in the care of this patient. If you are a health care provider and have any questi ons regarding this report, please contact the number below. For patients w ho have questions please contact the health patient care assistant that requested your imaging first. Petar Arriola MD IMG DX ORDERABLES documented in this encounter Visit Diagnoses Diagnosis Status post total replacement of left hi p Status post total replacement of left hi p documented in this encounter Care Teams Nuclear Plant Operator Relationship Specialty Start Date End Date Cecilia Curiel MD PCP - General Family Medicine 10/26/[address] [place] [address] documented as of this encounter
--- OUTSIDE RECORDS SUMMARY | 2021-10-09 21:46 | XMS_ITS | Encounter Summary ---
:1940 Author Organization [facility] Address [address] [place] [address] Care Team Providers Name Role Phone Cecilia Curiel MD Primary Care Provider Encounter Details Date Type Department Care Team Description 07/21/2020 Hospital Encounter XRay at [facility] Status post total [address] [place] [address] Social History Tobacco Use Types Packs/Day Years [...] on file documented as of this encounter Medications at Time of Discharge Medication Sig Dispensed Refills Start Date End Date metroNIDAZOLE (METROGEL) Apply topically. 0 02/26 0.75 % Gel rosuvastatin (Crestor) 10 0 07/14/2020 mg Tablet spironolactone (Aldactone) 0 25 mg Tablet Sulfacetamide APPLY TO AFFECTED 0 04/23/2020 Sodium-Sulfur 10-5 % (w/v) AREA S AT BEDTIME Lotion NEEDED FOR RASH acetaminophen (TYLENOL) Take 1,000 mg by 0 500 mg Tablet mouth as needed for Pain. losartan (COZAAR) 50 mg Take 50 mg by mouth. 0 Tablet miconazole (MICOTIN) 2 % Apply topically as 0 Cream needed. white petrolatum-mineral Apply topically as 0 oil (EUCERIN) Cream needed. Blood-Glucose Meter Misc 1 each by 60 each 3 06/28/2014 Misc.(Non-Drug; Combo Route) route 2 times daily. Blood Sugar Diagnostic Twice daily 60 each 3 06/28/2014 (ONETOUCH ULTRA TEST) Strip gabapentin (NEURONTIN) 300 Take 1 capsule by 90 capsule 12 mg Capsule mouth nightly. senna (SENOKOT) 8.6 mg Take 2 tablets by 0 Tablet mouth every evening. cyanocobalamin (VITAMIN Take 1,000 mcg by 0 B-12) 1,000 mcg Tablet mouth daily. CALCIUM CARBONATE/VITAMIN Take 600 mg by mouth 0 D3 (CALCIUM+D ORAL) daily. metFORMIN (GLUCOPHAGE) 500 Take 500 mg by mouth 0 mg tablet 2 times daily (with meals). clindamycin (CLEOCIN) 300 Take 2 capsules by 20 capsule 11 mg CapsuleIndications: mouth as needed per Status post revision of protocol (Please total hip replacement take 2 tablets, one hour prior to any dental procedure). documented as of this encounter Plan of Treatment Not on filedocumented as of this encounter Procedures Procedure Name Priority Date/Time Associated Diagnosis Comme nts XR PELVIS AND HIP 2 Routine 07/21/2020 10:48 AM Status post to yolis Results for this VIEWS LEFT EDT replacement of left procedur e are in hip the results section. documented in this encounter Results XR Pelvis and Hip [...] who have questions please contact the health personal care attendant that requested your imaging first. ? Electronically signed by: Griselda mcdaniels MD, [facility] ([phone]), at 07/21/2020 11:21 AM Narrative 07/21/2020 11:21 AM EDT EXAMINATION: XR [...] stem is slightly increased in conspicuity since 2016. No para prostati c fracture. The femoral head component is centered within the acetabular cup. Unchanged AP appearance of the right tot al hip arthroplasty. Procedure Note Sin, Griselda Constantino MD - 07/21/2020Formattin g of this note [...] stem is slightly increased in conspicuity since 2016. No para prostati c fracture. The femoral [...] ho have questions please contact the health personal care attendant that requested your imaging first. Electronically signed by: Griselda Jacobs MD, [facility] ([phone]), at 07/21/2020 11:21 AM Petar Arriola MD IMG DX ORDERABLES documented in this encounter Visit Diagnoses Diagnosis Status post total replacement of left hi p documented in this encounter Care Teams Hiv Prevention Specialist Relationship Specialty Start Date End Date Cecilia Curiel MD PCP - General Family Medicine 10/26/[address] [place] [address] documented as of this encounter
--- OUTSIDE RECORDS SUMMARY | 2021-10-09 21:46 | XMS_ITS | Encounter Summary ---
:1940 Author Organization [facility] Address [address] [place] [address] Care Team Providers Name Role Phone Nayla Caputo MD Primary Care Provider Reason for Visit Reason Comments Aftercare Of Tjr LT MILTON REV 10/19/14 Encounter Details Date Type Department Care Team Description 01/31/2015 Office Visit Orthopaedics at [facility] Petar Garza Status post [facility] [address] total hip [address] [facility] replacement[place] [address] Garza DOS: [phone] ORTHOPAEDIC 10/19/2014 (Prim tiffany SURGERY Dx) [place], [place] [address] Social History Tobacco Use Types [...] Sign Reading Time Taken Comments Blood Pressure 122/61 01/31/2015 10:51 AM EST Pulse 84 01/31/2015 10:51 AM EST Temperature - - Respiratory Rate - - Oxygen Saturation - - Inhaled Oxygen Concentration - - Weight 93.9 kg (207 lb) 01/31/2015 10:51 AM EST fully d ressed Height 160 cm (5' 3) 01/31/2015 10:51 AM EST verbal Body Mass Index 36.67 01/31/2015 10:51 AM EST documented in this encounter Progress Notes Petar Garza MD - 01/31/2015 11:44 AM EST I have seen the patient and reviewed Noe Peraza PA-C's history/physical and I agree with the details as written. The assessment and plan were formulated in discussion with me and I agree with them as documented. In brief, this is a 74-year-old female who underwent a 2 stage revision of her left hip for infection. At this point, she is about three months out from her reimplantation. Overall, she is doing well. She is not having any pain in the hip. She is ambulating with a cane. She is discussing getting on a treadmill and riding a recumbent bike. We had a long discussion about increasing her activity as tolerated. I think a bike and a treadmill are both reasonable. She has no signs of infection. Her wound is well healed. At this point, I think it is okay for her to continue with activity as tolerated. I will plan to see her back at the anniversary of her surgery in sometime next summer. She knows to call with any questions. We reviewed dental prophylaxis and she has our information in case she needs a prescription. PETAR GARZA MD, MS 01/31/2015 Noe Peraza PA - 01/31/2015 11:39 AM EST Patient Name: Marcia Palma : 1940 MR#: [id number] Arthroplasty/Orthopaedic History: 1. Left MILTON 05/14/12 Dr. Monte ([facility]) 2. I+D Left hip wound 05/01/13, [...] y.o. year-old female who presents for a 3 months follow-upof the above procedure. The patient has been doing very well and her pain is markedly improved over preoperative status. No fevers, chills, nausea, vomiting, or symptoms of infection. Marcia has been ambulating with a cane and working with PT. No abrupt increase in left hip pain. Physical Exam: Well-appearing female in no acute distress. Alert and Oriented x 3 and answers all questions appropriately. The incision is well healed, with no signs of infection. No erythema, edema, ecchymosis, or open draining wounds. Hip Exam: Left Leg Length: Longer leg: equal Limb Length discrepancy: 0cm Motion: Flexion contracture: 0 Total degrees of Flexion: 120 Total degrees of Abduction: 30 Total degrees of Ext Rotation: 20 Total degrees of Internal Rotation: 15 Gait Abnormality: Normal Pulses Palpable: Left PT: Yes Left DP: Yes Motor/Sensory: Left Distal Motor: Normal Distal Sensory: Normal Hip Abductors: 4 Negative axial load and log roll test. X-RAYS: No new X-rays obtained today ASSESSMENT/PLAN: 3 months post-op and doing well. Continue weightbearing as tolerated and working onrange of motion, and we will see her back in 9 months for repeat examination. Left hip x-rays will be needed at that time. Patient may return to normal activities as her pain and function allow. We discussed that she can continue weightbearing as tolerated, with no restrictions. Discussed with the positions were safest for her hip to be in, and the unsafe this positions her hip to be in. She can complete any activity that she would like to, withinsafe ranges of motion. She will continue walking and cycling at home. She will monitor for fever, chills, night sweats, and signs of reinfection. She alsoworked diligently on keeping her sugars down. We discussed the appropriate precautions surrounding dental [...] including foot ulcers and urinary tract infections. Signed: ASUNCION SANCHEZ 01/31/2015 documented in this encounter Plan of Treatment Not on filedocumented as of this encounter Visit Diagnoses Diagnosis Status post revision of total hip replac SHERRY [address] Dr[address] DOS: 10/19/2014 - Primary Hip joint replacement by other means documented in this encounter Care Teams Group Supervisor Yard Relationship Specialty Start Date End Date Nayla Caputo MD PCP - General 12/13/11 10/25/15 [address] [place] [address] documented as of this encounter
--- OUTSIDE RECORDS SUMMARY | 2021-10-09 21:46 | XMS_ITS | Clinical Summary ---
:1940 Author Organization [facility] [place] [address] Care Team Providers Name Role Phone Cecilia Curiel MD Primary Care Provider Allergies Active Allergy Reactions Severity Noted Date Comments Amoxicillin Rash Medium 12/13/2011 Aspirin Other (See Comments) Medium 07/14/2020 Change mental status Other reaction( s): CONFUSION, TAKE S IBUPROFEN OKAY Amoxicillin-Pot Rash Medium 12/13/2011 Clavulanate Coq10 (Liposomal Low 07/14/2020 Other react ion(s): Ubiquinol) MUSCLE PAIN Coq10 (Ubiquinol) Other (See Comments) 08/02/2014 Mu scle Pain Penicillins High 12/13/2011 Patient states no reaction to thi s medication Other reaction( s): RASH, Skin Rash Potassium Clavulanate High 07/14/2020 Other reaction(s): RASH Pravastatin Other (See Comments) Medium 12/13/2011 Loss of muscle and body Other reaction( s): MYALGIAS Simvastatin Other (See Comments) Medium 12/13/2011 Loss of muscle & body Other reaction( s): MUSCLE PAIN Medications Medication Sig Dispensed Refills Start Date End Date Status CALCIUM Take 600 mg by 0 Activ e CARBONATE/VITAMIN D3 mouth daily. (CALCIUM+D ORAL) metFORMIN (GLUCOPHAGE) Take 500 mg by 0 Active 500 mg tablet mouth 2 times daily (with meals). cyanocobalamin (VITAMIN Take 1,000 mcg 0 Active B-12) 1,000 mcg Tablet by mouth daily. senna (SENOKOT) 8.6 mg Take 2 tablets 0 Active Tablet by mouth every evening. gabapentin (NEURONTIN) Take 1 capsule 90 capsule 06/27/2014 Active 300 mg Capsule by mouth nightly. Additional Information Patient taking differently: 300 mg Oral 2 TIMES DAILY, Reported on 01/31/2015 Blood-Glucose Meter Misc 1 each by Misc.(Non-Drug; 60 each 3 06/28/2014 Active Combo Route) route 2 times daily. Blood Sugar Diagnostic Twice daily 60 each 3 06/28/2014 Active (ONETOUCH ULTRA TEST) Strip losartan (COZAAR) 50 mg Take 50 mg by mouth. 0 Active Tablet miconazole (MICOTIN) 2 % Apply topically as needed. 0 Active Cream white petrolatum-mineral Apply topically as needed. 0 Active oil (EUCERIN) Cream acetaminophen (TYLENOL) Take 1,000 mg by mouth as 0 Active 500 mg Tablet needed for Pain. clindamycin (CLEOCIN) 300 Take 2 capsules by mouth 20 capsule 11 10/26/2015 Active mg CapsuleIndications: as needed per protocol Status post revision of (Please take 2 tablets, total hip replacement one hour prior to any dental procedure). Additional Information Patient not taking. Reported on 07/21/2020 metroNIDAZOLE (METROGEL) 0.75 % Apply topically. 0 1 04/28/2015 Active Gel rosuvastatin (Crestor) 10 mg 0 07/14/2020 Active Tablet spironolactone (Aldactone) 25 mg 0 021 Active Tablet Sulfacetamide Sodium-Sulfur 10-5 APPLY TO AFFECTED AREA S AT 0 04/23/2020 Active % (w/v) Lotion BEDTIME NEEDED FOR RASH Active Problems Problem Noted Date S/P total hip arthroplasty 10/25/2016 Status post revision of total hip replacement, LEFT Dr Estrellita Arriola DOS: 11/29/2014 10/19/2014 Medication monitoring encounter 07/29/2014 Retinal detachment 06/15/2014 Overview: Left eye - Repair 03/2014 Dr. Jean schwartz at [facility]. 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 11/29/2014 Left hip pain 01/17/2012 11/29/2014 Immunizations Name Administration Dates Next Due Influenza Vaccine, Whole 01/23/2006, 01/26/2005 Pneumococcal Polyvalent 23 11/17/2004 Family History Medical History Relation Comments Fractures Mother Dislocations Neg Hx Scoliosis Neg Hx Relation Status Comments Mother Social History Tobacco Use Types Packs/Day Years [...] Assigned at Date Recorded Not on file Last Filed Vital Signs Vital Sign Reading Time Taken Comments Blood Pressure 132/62 07/21/2020 11:23 AM EDT Pulse 97 07/21/2020 11:23 AM EDT Temperature 36.6 ??C (97.8 ??F) 11/29/2014 10:57 AM EDT oral Respiratory Rate 18 10/22/2014 8:12 AM EDT Oxygen Saturation 99% 10/22/2014 8:12 AM EDT Inhaled Oxygen Concentration - - Weight 103 kg (227 lb) 07/21/2020 11:23 AM EDT Height 158.8 cm (5' 2.5) 07/21/2020 11:23 AM EDT Body Mass Index 40.86 07/21/2020 11:23 AM EDT Plan of Treatment Health Maintenance Due Date Last Done Comments Covid-19 Vaccine (#1) 1945 DM Opthalmology Exam 1952 DM Urine Microalbumin yearly 1952 Hepatitis C Screening 1960 Tdap adult 1961 Tetanus vaccine 1961 Zoster vaccine (1 of 2) 1992 Pneumoccocal Vaccine: 65+ (2 - 11/17/2005 11/17/2004 PCV) Bone Density Scan 2007 DM Hemoglobin A1c 12/21/2014 09/20/2014, 06/14/2014 DM Creatinine yearly 10/23/2015 10/22/2014, 10/21/2014, 10/20/2014, Additional history exists Influenza (Flu) vaccine (1 of 1 - 11/30/2021 01/23/2006, Influenza standard series) Medical Devices Implanted Type Area Academic Director Device Shelf Model / Identifier Expiration Serial / Date Lot Cement,Bne,Cmw 2,Hlf Dose,20gm ([id number]) - [id number] IMPLANTS Left: DO NOT USE Depuy 08/23/2016 [id number] / Implanted: Qty: 2 on 06/23/2014 by Petar Arriola MD at [facility] Hip Production Support Supervisor - / [id number] Description: Implanted to left pelvis an d top of left stem Head,Atc,Mtl,+1.5mm,36mm ([id number]) (Autoreq) - [id number] IMPLAN TS Left: Hip DO NOT USE 06/20/2019 [id number] / Implanted: Qty: 1 on 10/19/2014 by Petar Ar[facility]ola MD at [facility] Depuy / Production Support Supervisor [id number] [phone] [id number] Insurance Payer Benefit Plan / Subscriber ID Effective Dates Phone Addre ss Type Group MEDICARE MEDICARE PART [id number] 2007-Brittney [phone] [id number] [place] [phone] [employer] LIFE [id number] 2007-Brittney [address] [place] [id number] Advance Directives Documents on File Type Date Recorded Patient Coater Operator Explanati on Advance Directives and Living 02/23/2019 4:36 PM 02/23/2019 Will Advance Directives and Living 06/14/2014 12:37 PM 03/28/12 Will Latest Code Status on File Code Status Date Activated Date Inactivated Comments Full Code 10/19/2014 4:32 PM 10/22/2014 3:08 PM Order Status: Initial Order Does patient have decision making capacity? Yes, Order is based on Patients wishes. Full Code 06/23/2014 4:38 PM 06/27/2014 3:23 PM Order Status: Initial Order Does patient have decision making capacity? Yes, Order is based on Patients wishes. Care Teams Instructor [employer]ence [employer] Relationship Specialty Start Date End Date Cecilia Curiel MD PCP - General Family Medicine 10/26/[address] [place] [address] [address] [place], [place] [address]
--- OUTSIDE RECORDS SUMMARY | 2021-10-09 21:46 | XMS_ITS | Encounter Summary ---
:1940 Author Organization [facility] Address [address] [place] [address] Care Team Providers Name Role Phone Cecilia Curiel MD Primary Care Provider Encounter Details Date Type Department Care Team Description 10/26/2015 Hospital Encounter XRay at [facility] Petar Arriola Status post revision [address] Umu MD of total hip [place], [place] [facility], [facility] [id number] Arriola DOS: [phone] ORTHOPAEDIC 10/19/2014 [place] [address] Social History Tobacco Use Types Packs/Day Years [...] Sig Dispensed Refills Start Date End Date acetaminophen (TYLENOL) Take 1,000 mg by 0 500 mg Tablet mouth as needed for Pain. losartan (COZAAR) 50 mg Take 50 mg by 0 Tablet mouth. miconazole (MICOTIN) 2 % Apply topically as 0 Cream needed. white petrolatum-mineral Apply topically as 0 oil (EUCERIN) Cream needed. Blood-Glucose Meter Misc 1 each by 60 each 3 06/28/2014 [facility].(Non-Drug; Combo Route) route 2 times daily. Blood Sugar Diagnostic Twice daily 60 each 3 06/28/2014 (ONETOUCH ULTRA TEST) Strip gabapentin (NEURONTIN) Take 1 capsule by 90 capsule 12 2014 300 mg Capsule mouth nightly. senna (SENOKOT) 8.6 mg Take 2 tablets by 0 Tablet mouth every evening. cyanocobalamin (VITAMIN Take 1,000 mcg by 0 B-12) 1,000 mcg Tablet mouth daily. CALCIUM CARBONATE/VITAMIN Take 600 mg by 0 D3 (CALCIUM+D ORAL) mouth daily. metFORMIN (GLUCOPHAGE) Take 500 mg by 0 500 mg tablet mouth 2 times daily (with meals). clindamycin (CLEOCIN) 300 Take 2 capsules by 20 capsule 11 mg CapsuleIndications: mouth as needed per Status post revision of protocol (Please total hip replacement take 2 tablets, one hour prior to any dental procedure). ibuprofen (ADVIL;MOTRIN) Take 800 mg by 0 07/21/2020 800 mg Tablet mouth as needed for Pain. RED YEAST RICE ORAL Take 1,000 mg by 0 07/21/2020 mouth daily. documented as of this encounter Plan of Treatment Not on filedocumented as of this encounter Procedures Procedure Name Priority Date/Time Associated Diagnosis Comme nts XR PELVIS AND LAT Routine 10/26/2015 12:53 PM Status post revi meghan Results for this HIP LEFT EDT of total hip procedure are i n replacement, LEFT the result s Dr. Arriola DOS: section. 10/19/2014 documented in this encounter Results XR Pelvis & Hip Left (Generic) (10/26/2015 12:53 PM EDT) Anatomical Region Laterality Modality Pelvis, Hip Left Digital Radiography Specimen (Source) Anatomical Location Collection Method / Collectio n Time Received Time / Laterality Volume Impressions 10/26/2015 1:46 PM EDT No appreciable change or interval hardware complication seen. Narrative 10/26/2015 1:46 PM EDT EXAMINATION: XR PELVIS AND LATERAL HIP LEFT CLINICAL HISTORY: S/P L MILTON Revision. TECHNIQUE: Frontal pelvis. Lateral LEFT hip. COMPARISON: November 29, 2014 FINDINGS: LEFT total hip arthroplasty, with mainta ined articulation and intact hardware; no appreciable change in appearance or a lignment, without periprosthetic fracture or lucency seen. RIGHT total hi p arthroplasty without appreciable change. Intact pelvic ring. Non-diastati c pubic symphysis. Bowel contents, including air and stool, project over th e sacral and iliac bones as well as included lumbosacral spine. Procedure Note Jose Carreno MD - 10/26/2015 EXAMINATION: XR PELVIS AND LATERAL HIP L EFT CLINICAL HISTORY: S/P L MILTON Revision. TECHNIQUE: Frontal pelvis. Lateral LEFT hip. COMPARISON: November 29, 2014 FINDINGS: LEFT total hip arthroplasty, with mainta ined articulation and intact hardware; no appreciable change in appearance or a lignment, without periprosthetic fracture or lucency seen. RIGHT total hi p arthroplasty without appreciable change. Intact pelvic ring. Non-diastati c pubic symphysis. Bowel contents, including air and stool, project over th e sacral and iliac bones as well as included lumbosacral spine. IMPRESSION No appreciable change or interval hardwa re complication seen. Petar Arriola MD IMG DX ORDERABLES documented in this encounter Visit Diagnoses Diagnosis Status post revision of total hip replac SHERRY velásquez Dr. Arriola DOS: 10/19/2014 Hip joint replacement by other means documented in this encounter Care Teams Volleyball Coach Relationship Specialty Start Date End Date Cecilia Curiel MD PCP - General Family Medicine 10/26/[address] [place] [address] documented as of this encounter
--- OUTSIDE RECORDS SUMMARY | 2021-10-09 21:46 | XMS_ITS | Encounter Summary ---
:1940 Author Organization [facility] [place] [address] Care Team Providers Name Role Phone Nayla Caputo MD Primary Care Provider Encounter Details Date Type Department Care Team Description 11/08/2014 [place]ed[place] [facility] [place] Raquel [place] S/P total hip Telephone Visit [facility] [place] [phone] Social History Tobacco Use Types Packs/Day Years [...] means documented in this encounter Care Teams Crop And Soil Scientist Relationship Specialty Start Date End Date Nayla Caputo MD PCP - General 12/13/11 10/25/15 [address] [place] [address] documented as of this encounter
--- OUTSIDE RECORDS SUMMARY | 2021-10-09 21:46 | XMS_ITS | Encounter Summary ---
:1940 Author Organization [facility] Address [address] [place] [address] Care Team Providers Name Role Phone Cecilia Curiel MD Primary Care Provider Encounter Details Date Type Department Care Team Description 10/25/2016 [place] En[place] [facility] [place]ar Arriola Presence of [address] Umu MD artificial hip, left [facility] [id number] [place] [phone] [place] [address] Social History Tobacco Use Types Packs/Day Years [...] Apply topically. 0 02/26 0.75 % Gel acetaminophen (TYLENOL) Take 1,000 mg by 0 [...] nts XR PELVIS AND HIP 2 Routine 10/25/2016 12:01 PM Presence of R esults for this VIEWS LEFT EDT artificial hip, left procedu re are in the results section. documented in this encounter Results XR Pelvis w AP & Lat Hip Left (10/25/2016 12:01 PM EDT) Anatomical Region Laterality Modality Pelvis, Hip Left Digital Radiography Specimen (Source) Anatomical Location Collection Method / Collectio n Time Received Time / Laterality Volume Impressions 10/25/2016 1:31 PM EDT No change in appearance of left total hip arthroplasty. Narrative 10/25/2016 1:31 PM EDT EXAMINATION: XR PELVIS W AP AND LAT HIP LEFT CLINICAL HISTORY: annual check TECHNIQUE: AP pelvis and 2 views of left hip. COMPARISON: 10/26/2015 FINDINGS: There is no interval change, specificall y in the position of the acetabular and femoral components of the left total hip arthroplasty. No periprosthetic fracture or significant new periprosthet ic lucency is seen. Again noted is the RIGHT total hip arthroplasty without com plication. Procedure Note Giusepep Rae MD - 10/25/2016Formatt ing of this note might be different from the original. EXAMINATION: XR PELVIS W AP AND LAT HIP LEFT CLINICAL HISTORY: annual check TECHNIQUE: AP pelvis and 2 views of left hip. COMPARISON: 10/26/2015 FINDINGS: There is no interval change, specificall y in the position of the acetabular and femoral components of the left total hip arthroplasty. No periprosthetic fracture or significant new periprosthet ic lucency is seen. Again noted is the RIGHT total hip arthroplasty without com plication. IMPRESSION No change in appearance of left total hi p arthroplasty. Petar Arriola MD IMG DX ORDERABLES documented in this encounter Visit Diagnoses Diagnosis Presence of artificial hip, left documented in this encounter Care Teams Global Regulatory Affairs Manager Relationship Specialty Start Date End Date Cecilia Curiel MD PCP - General Family Medicine 10/26/[address] [place] [address] documented as of this encounter
--- OUTSIDE RECORDS SUMMARY | 2021-10-09 21:46 | XMS_ITS | Encounter Summary ---
:1940 Author Organization [facility] [place] [address] Care Team Providers Name Role Phone Nayla Caputo MD Primary Care Provider Encounter Details Date Type Department Care Team Description 11/08/2014 [place] Orth[place]edics [place] [facility] [place] Raquel S/P total hip Telephone Visit [facility] [place] [phone] Social History Tobacco Use Types Packs/Day Years [...] Name Priority Date/Time Associated Diagnosis Comme nts EXTERNAL LAB Routine 11/08/2014 Results for thi s HEMATOLOGY/COAG procedure ar e in the RESULTS PANEL results sectio n. documented in this encounter Results (ABNORMAL) Hematology / Coag External Results (11/08/2014) P athologist Signature POC INR 1.7 0.9 - 1.1 (External Lab) Specimen (Source) Anatomical Location Collection Method / Collectio n Time Received Time / Laterality Volume 11/08/2014 Historical Provider HEMATOLOGY ORDERABLES documented in this encounter Visit Diagnoses Diagnosis S/P total hip arthroplasty Hip joint replacement by other means documented in this encounter Care Teams Barrer And Tacker Relationship Specialty Start Date End Date Nayla Caputo MD PCP - General 12/13/11 10/25/15 [address] [place] [address] documented as of this encounter
--- OUTSIDE RECORDS SUMMARY | 2021-10-09 21:47 | XMS_ITS | Encounter Summary ---
:1940 [place] [address] Care Team Providers Name Role Phone Nayla Caputo MD Primary Care Provider Encounter Details Date Type Department Care Team Description 10/19/2014 Anesthesia Event Main Operating Room Santana Feliciano, [facility] María [place] [address] [place] [address] [phone] (Wo rk) Anesthesia Record Procedure Summary Procedure Name Responsible Anesthesia Start Anesthesia Stop Time Anesthesiologist Time @TOTAL HIP REVISION Jean King MD 10/19/14 1333 10/19 1630 ARTHROPLASTY, COMPLETE (WRVU 30.28) (Left Hip) Events Date Time Event Comment 10/19/2014 1208 1333 AN Verify 1333 Start 1337 An Start Data 1341 An Induction 1342 An Intubation 1344 Anesthesia Ready 1411 Skin Incision 1504 Handoff Anesthesia care was transferred after review of the patient's hi story, current anesthetic/surgical status and plan, according to the Provider Handoff Checklist. [address] not reading. 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 II/V5 0.0/0.0 1608 Extubation/LMA Out To Delete (sk ip) the Extubation event, click the X below. 1613 an stop data 1630 Stop Name Total fentaNYL 250 mcg IV Lidocaine 30 mg Propofol 200 mg Rocuronium 50 mg PHENYLephrine 800 mcg Dexamethasone 8 mg Neostigmine 4 mg Glycopyrrolate 0.6 mg ceFAZolin (ANCEF) 2g in dextrose 5% 50 mL 2 g Tranexamic Acid 1,214 mg HYDROmorphone 2.4 mg lactated ringers infusion 1,000 mL 1,500 mL Lactated Ringers 1,000 mL Agents Name O2 Air Sevoflurane (et) Blood No blood administrations on file. Lines, Drains, and Airways Type Details Placement Removal Incision 10/19/14; hip; vertical 10/19/14 0000 by Damaris Anderson RN Incision 06/23/14; hip; 10/19/14; 06/23/14 0000 by 1538 by 1538 Stuart Hansen Pamela K, RN Linda A, RN PICC Line - Single 06/26/14; 1139; basilic 06/26/14 1139 by 09/30 04/15 1744 by Lumen vein left (medial side Marko Blankenship RN Brown, Pamela K, RN of arm); pressure injectable catheter, open-ended catheter; 4 Fr; 39 cm; MARKO BLANKENSHIP RN; intradermal injection, tolerated well; 2; basilic vein (medial side of arm), right, no redness, ecchymosis, warmth, swelling, pain, drainage (one basilic, one brachial); 10/19/14; 1744 Urethral Catheter 10/19/14; Surgery longer 10/19/14 0000 by 09/30 05/16 0816 by than 2 hours, Physician Damaris Anderson Dou[place], Courtney order; Physician order, ALINA Daniel, SWEETIE Prolonged Immobilization; indwelling double lumen catheter; 100% silicone, hydrophilic coated; 16; inserted at this facility; 1; 5; 10; none; drainage bag to dependent drainage; 10/20/14; 0816 PIV 10/19/14; 1254; cephalic 10/19/14 1254 by 1700 by vein right (lateral side Sandy Cade RN B onincStefania live of arm); 20 gauge; ALINA Constantino; distraction, intradermal injection, tolerated well, appears comfortable; 0; removed per patient; 10/20/14; 1700 PIV 10/19/14; 1333; basilic 10/19/14 1333 by 07/24/1 5 1205 by vein right (medial side Mahin Guidry, Ye Davidson, BROACH TROUBLE SHOOTER of arm); [id number] CULINARY INSTRUCTOR catheter system; 18 gauge; Chao life consultant; 10/22/14; 1205 ETT Mask Ventilation: Easy 10/19/14 1342 by 10/19/14 1608 by (1); ETT Type: Cuffed, Mahin Guidry, Bushra Vegas, Oral; ETT Size: 6.5 mm; CULINARY INSTRUCTOR CULINARY INSTRUCTOR Mac Blade: 3; Attempts: 1; Laryngoscopy Grade: 1; ETT Placement Verified By: Auscultation, Capnometry, Visual; Secured at Teeth: 20 cm; Inserted by: Christine SCHMITT documented in this encounter Social History Tobacco Use Types Packs/Day Years [...] on file documented as of this encounter OR Notes Anesthesia Postprocedure Evaluation - Jean King MD - 10/19/2014 5:29 PM EDT Patient: Marcia Palma Procedure(s) Performed: Procedure(s): @TOTAL HIP REVISION ARTHROPLASTY, COMPLETE MODIFIER RECLAIM DEPUY MODIFIER: PINNACLE GRIPTION TF ACETABULAR AUGMENTS MODIFIER PINNACLE ACETABULUM DEPUY Actual Anesthetic: general Patient location: PACU Post-op pain: Adequate analgesia Post-op nausea: no nausea or vomiting Last Vitals: Filed Vitals: 10/19/14 1715 BP: 135/64 Pulse: 64 Temp: Resp: 14 Post-op cardiovascular and respiratory status: is stable Level of consciousness: awake and alert Complications: no apparent complications and tolerated the procedure well Fluid Status: normal Doing great Anesthesia Preprocedure Evaluation - Jean King MD - 10/19/2014 12:05 PM EDT Pre-Anesthesia Evaluation for: Marcia Palma a 74 y.o. female. Procedure(s): @TOTAL HIP REVISION ARTHROPLASTY, COMPLETE MODIFIER RECLAIM DEPUY MODIFIER: PINNACLE GRIPTION TF ACETABULAR AUGMENTS MODIFIER PINNACLE ACETABULUM DEPUY Patient Active Problem List Diagnosis ??? Left hip prosthetic joint infection MSSA ??? Medication monitoring encounter ??? 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 S/P explant Left hip joint prosthesis and placement of antibiotic- impregnated cement spacer, 06/23/14 (Dr. Arriola) ??? Retinal detachment Left eye - Repair 03/2014 Dr. Jean Mosher at [facility]. ??? Anemia ??? Rosacea ??? DM (diabetes mellitus), type 2 ??? Hypertension (HTN) ??? HLD (hyperlipidemia) ??? Restless leg syndrome ??? 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 Left hip pain ??? Lumbar degenerative disc disease Past Medical History Diagnosis Date ??? Lumbar degenerative disc disease 12/13/2011 ??? Left hip pain 01/17/2012 Past Surgical History Procedure Laterality Date ??? Removal of hip prosthesis, complex Left 06/23/2014 @TOTAL HIP PROSTHESIS, REMOVAL performed by Petar Arriola MD at [facility] ??? Left 06/23/2014 MODIFIER PROSTALAC DEPUY performed by Petar Arriola MD at [facility] History Substance Use Topics ??? Smoking status: Never Smoker ??? Smokeless tobacco: Never Used ??? Alcohol Use: 1.5 oz/week 3 drink(s) per week Comment: occasionally History Drug Use No Allergies Allergen Reactions ??? Amoxicillin Rash ??? Augmentin [Amoxicillin-Pot Clavulanate] Rash ??? Coq10 (Ubiquinol) Other (See Comments) Muscle Pain ??? Penicillins Patient states no reaction to this medication ??? Pravastatin Other (See Comments) Loss of muscle and body ??? Simvastatin Other (See Comments) Loss of muscle & body ??? Aspirin Other (See Comments) Change mental statis Medications: MAR and/or home medications have been reviewed. Physical Exam: Filed Vitals: 10/19/14 1143 BP: 146/65 Pulse: 85 Temp: 36.6 ??C (97.9 ??F) Resp: 18 There is no weight on file to calculate BMI. Airway Assessment: Mallampati: II TM distance: >3 FB Neck ROM: full Cardiovascular Assessment: Rhythm: regular Rate: normal Pulmonary Assessment: breath sounds clear to auscultation Dental Assessment: - normal exam [facility] Assessment: IV access: Peripheral line Anesthesia Plan: ASA 2 general, with a(n) intravenous induction 74 yo for left hip revision vs spacer swap No hx of problems with anesthesia Did well with surgery here for spacer placement NIDDM BS usually 90s-110 (106 here today) HTN well controlled on meds Denies recent CP/SOB/GERD or URI Patient requesting GA Risks and benefits of GA discussed All questions answered FULL CODE Region - Other Informed Consent: Anesthetic plan and risks discussed with patient. Use of blood products discussed with patient whom consented to blood products. Plan discussed with CULINARY INSTRUCTOR. [facility]. Assessment: documented in this encounter Plan of Treatment Not on filedocumented as of this encounter Visit Diagnoses Not on filedocumented in this encounter Administered Medications Inactive Administered Medications - up to 3 most recent administrations Medication Order MAR Action Action Date Dose Rate Site ceFAZolin (ANCEF) 2g in dextrose 5% Given 10/19/2014 1:49 PM EDT 2 g 50 mL 2 g, Intravenous, EVERY 3 HOURS, 1 dose, First dose on Sat10/19/14 at 1230, Administer over 30 Minutes, Redose after 3 hours., Intra-Operative (Intra-Procedure), Indication for (Active or Suspected): Prophylaxis dexamethasone (DECADRON) injection Given 10/19/2014 2:06 PM EDT 8 mg PRN, Starting on Sat10/19/14 at 1406, Until Sat10/19/14 at 1632, Anesthesia Intra-op, Routine fentaNYL 50 mcg/mL multi-dose injection Given 10/19/2014 2:15 PM EDT 50 mcg PRN, Starting on Sat10/19/14 at 1334, Until Sat10/19/14 at 1632, Pain, Anesthesia Intra-op, Routine Given 10/19/2014 2:10 PM EDT 50 mcg Given 10/19/2014 1:39 PM EDT 75 mcg glycopyrrolate (ROBINUL) multi-dose inje ction Given 10/19/2014 3:30 PM EDT 0.6 mg PRN, Starting on Sat10/19/14 at 1530, Until Sat10/19/14 at 1632, Anesthesia Intra-op, Routine HYDROmorphone (DILAUDID) injection Given 10/19/2014 4:23 PM EDT 0.4 mg PRN, Starting on Sat10/19/14 at 1510, Until Sat10/19/14 at 1632, Pain, Anesthesia Intra-op, Routine Given 10/19/2014 4:17 PM EDT 0.4 mg Given 10/19/2014 4:13 PM EDT 0.4 mg lactated ringers infusion 1,000 mL New Bag 10/19/2014 3:25 PM EDT 1,000 mL, at 100 mL/hr, Intravenous, CONTINUOUS, Starting on Sat10/19/14 at 1230, Until Sat10/19/14 at 1642, Day of Surgery (Day of Procedure) New Bag 10/19/2014 1:33 PM EDT New Bag 10/19/2014 12:56 PM EDT 1,000 mLs 100 mL/hr lactated ringers infusion New Bag 10/19/2014 1:43 PM EDT CONTINUOUS PRN, Starting on Sat10/19/14 at 1343, Until Sat10/19/14 at 1632, Anesthesia Intra-op lidocaine (PF) (XYLOCAINE) 100 mg/5 mL (2 %) Given 5 1:41 PM EDT 30 mg injection PRN, Starting on Sat10/19/14 at 1341, Until Sat10/19/14 at 1632, Anesthesia Intra-op, Routine neostigmine (PROSTIGMINE) multi-dose inj ection Given 10/19/2014 3:30 PM EDT 4 mg PRN, Starting on Sat10/19/14 at 1530, Until Sat10/19/14 at 1632, Anesthesia Intra-op, Routine PHENYLephrine HCl in NS (PF) (REG-SYNEPHRINE) Given 3:30 PM EDT 80 mcg 0.8 mg/10 mL (80 mcg/mL) multi-dose injection Syrg PRN, Starting on Sat10/19/14 at 1348, Until Sat10/19/14 at 1632, Anesthesia Intra-op, Routine Given 10/19/2014 3:23 PM EDT 80 mcg Given 10/19/2014 3:16 PM EDT 80 mcg propofol (DIPRIVAN) 10 mg/mL bolus injection Given 5 3:51 PM EDT 30 mg (Anesthesia) PRN, Starting on Sat10/19/14 at 1341, Until Sat10/19/14 at 1632, Anesthesia Intra-op Given 10/19/2014 3:43 PM EDT 20 mg Given 10/19/2014 1:41 PM EDT 150 mg rocuronium (ZEMURON) multi-dose injectio n Given 10/19/2014 1:41 PM EDT 50 mg PRN, Starting on Sat10/19/14 at 1341, Until Sat10/19/14 at 1632, Anesthesia Intra-op, Routine tranexamic acid (CYKLOKAPRON) 100 mg/mL Given 10/19/2014 1:34 PM EDT 1,214 mg bolus injection (Anesthesia) PRN, Starting on Sat10/19/14 at 1334, Until Sat10/19/14 at 1632, Anesthesia Intra-op, Routine documented in this encounter Care Teams White Sourer Relationship Specialty Start Date End Date Nayla Caputo MD PCP - General 12/13/11 10/25/15 [address] [place] [address] documented as of this encounter
--- OUTSIDE RECORDS SUMMARY | 2021-10-09 21:47 | XMS_ITS | Encounter Summary ---
:1940 Author Organization [facility] Address [address] [place] [address] Care Team Providers Name Role Phone Nayla Caputo MD Primary Care Provider Encounter Details Date Type Department Care Team Description 09/20/2014 Hospital Encounter XRay at [facility], DR SHERMAN Infected prosthesis of left hip, subsequent encounter; [address] [place] [address] Petar Mancera MD [facility] [place] [address] Debility, unspecified; [place], [place] Pain of left th igh; [phone] Hyperglycemia [phone] Social History Tobacco Use Types Packs/Day Years [...] Sig Dispensed Refills Start Date End Date losartan (COZAAR) 50 mg Take 50 mg [...] tablet mouth 2 times daily (with meals). warfarin (COUMADIN) 2.5 Take 1 tablet by 0 201410/22/2014 mg Tablet mouth once for 1 dose. acetaminophen (TYLENOL) Take 2 tablets by 0 10/2210/26/2015 500 mg Tablet mouth every 8 hours. multivitamin Take 1 tablet by 0 10/22/20142014 Xzuz-Hg-JO-Min mouth daily. (THERAPEUTIC-M) 27-0.4 mg Tablet oxyCODONE (ROXICODONE) 5 Take 1-2 tablets by 24 tablet 0 11/29/2014 mg Tablet mouth every 4 hours as needed for Pain (mild to moderate pain (1-5) take 5 mg (one tablet), moderate to severe pain (6-10) take 10 mg (2 tablets)). polyethylene glycol Take 17 g by mouth 0 10/23/19 15 01/31/2015 (MIRALAX) 17 gram Powder 2 times daily. in Packet naproxen (NAPROSYN) 500 Take 1 tablet by 0 201411/29/2014 mg Tablet mouth 2 times daily (with meals) for 40 days. omeprazole (PRILOSEC) 20 Take 1 capsule by 0 /06/201411/29/2014 mg Capsule, Delayed mouth daily for 40 Release(E.C.) days. RED YEAST RICE ORAL Take 1,000 mg by 0 07/21/2020 mouth daily. ferrous sulfate 325 mg Take 325 mg by 0 11/29/2014 (65 mg iron) Tablet mouth daily (with breakfast). rOPINIRole (REQUIP) 0.25 Take 0.25 mg by 0 10/26/2015 mg Tablet mouth 3 times daily. acetaminophen (TYLENOL) Take 2 tablets by 30 tablet 1 06/2710/22/2014 500 mg Tablet mouth every 8 hours. polyethylene glycol Take 17 g by mouth 14 each 0 06/28/19 15 10/18/2014 (MIRALAX) 17 gram Powder 2 times daily. in Packet documented as of this encounter Plan of Treatment Scheduled Orders Name Type Priority Associated Diagnoses Order S chedule Fungus culture Microbiology STAT Infected prosthesis of 1 O ccurrences starting Joint left hip, subsequent 015 until encounter 09/20/2014 documented as of this encounter Procedures Procedure Name Priority Date/Time Associated Comments Diagnosis URINALYSIS WITH REFLEX Routine 09/20/2014 1:41 PM Debility, Results for this CULTURE EDT unspecified procedure are in Pain of left thi gh the results Infected prosthesis section. of left hip, subsequent encounter Hyperglycemia URINE CULTURE Routine 09/20/2014 1:41 PM Debility, Results for this EDT unspecified procedure are in Pain of left thi gh the results Infected prosthesis section. of left hip, subsequent encounter Hyperglycemia HEMOGRAM Routine 09/20/2014 1:29 PM Debility, Results f or this EDT unspecified procedure are in Pain of left thi gh the results Infected prosthesis section. of left hip, subsequent encounter Hyperglycemia DIFFERENTIAL, Routine 09/20/2014 1:29 PM Debility, Results for this AUTOMATED EDT unspecified procedure are in Pain of left thi gh the results Infected prosthesis section. of left hip, subsequent encounter Hyperglycemia TYPE AND SCREEN, SDP Routine 09/20/2014 1:29 PM Debility, (FUTURE SURGERY, [facility] EDT unspecifie d SAME DAY PROGRAM ONLY) Pain of l eft thigh Infected prosthesis of left hip, subsequent encounter Hyperglycemia ABO/RH TYPING Routine 09/20/2014 1:29 PM Debility, Results for this EDT unspecified procedure are in Pain of left thi gh the results Infected prosthesis section. of left hip, subsequent encounter Hyperglycemia SEDIMENTATION RATE Routine 09/20/2014 1:29 PM Debility, Res ults for this EDT unspecified procedure are in Pain of left thi gh the results Infected prosthesis section. of left hip, subsequent encounter Hyperglycemia PROTHROMBIN TIME Routine 09/20/2014 1:29 PM Debility, Resul ts for this EDT unspecified procedure are in Pain of left thi gh the results Infected prosthesis section. of left hip, subsequent encounter Hyperglycemia CBC (WITH DIFF) Routine 09/20/2014 1:29 PM Debility, EDT unspecified Pain of left thi gh Infected prosthesis of left hip, subsequent encounter Hyperglycemia ANTIBODY SCREEN Routine 09/20/2014 1:29 PM Debility, Result s for this EDT unspecified procedure are in Pain of left thi gh the results Infected prosthesis section. of left hip, subsequent encounter Hyperglycemia CRP, CARDIAC RISK (HS Routine 09/20/2014 1:29 PM Debility, Results for this CRP) EDT unspecified procedure are in Pain of left thi gh the results Infected prosthesis section. of left hip, subsequent encounter Hyperglycemia PROTEIN, TOTAL Routine 09/20/2014 1:29 PM Debility, Results for this EDT unspecified procedure are in Pain of left thi gh the results Infected prosthesis section. of left hip, subsequent encounter Hyperglycemia HEMOGLOBIN A1C Routine 09/20/2014 1:29 PM Debility, Results for this EDT unspecified procedure are in Pain of left thi gh the results Infected prosthesis section. of left hip, subsequent encounter Hyperglycemia ALBUMIN LEVEL Routine 09/20/2014 1:29 PM Debility, Results for this EDT unspecified procedure are in Pain of left thi gh the results Infected prosthesis section. of left hip, subsequent encounter Hyperglycemia BASIC METABOLIC PANEL Routine 09/20/2014 1:29 PM Debility, Results for this (NON-FASTING) EDT unspecified procedure are in Pain of left thi gh the results Infected prosthesis section. of left hip, subsequent encounter Hyperglycemia XR JOINT ASPIRATION - Routine 09/20/2014 12:08 Re sults for this LARGE JOINT PM EDT procedure are i n the results section. PROSTHETIC JOINT STAT 09/20/2014 11:48 Infected prosthesis CULTURE, EXTENDED AM EDT of left hip, HOLD, AEROBIC & subsequent ANAEROBIC encounter JOINT CULTURE STAT 09/20/2014 11:48 Infected prosthesis Res ults for this AM EDT of left hip, procedure are i n subsequent the results encounter section. ANAEROBIC CULTURE STAT 09/20/2014 11:48 Infected prosthesis Results for this AM EDT of left hip, procedure are i n subsequent the results encounter section. CELL COUNT BODY FLUID STAT 09/20/2014 11:48 Infected prosth esis Results for this AM EDT of left hip, procedure are i n subsequent the results encounter section. documented in this encounter Results Urine culture Clean Catch Urine (09/20/2014 1:41 PM EDT) [facility] Method Time Signature Urine Culture No growth CERNER (Less than MILLENNIUM 1,000 cfu/ml). Specimen (Source) Anatomical Collection Method Collection Time Re ceived Time Location / / Volume Laterality Urine specimen 09/20/2014 1:41 09/20/2014 1:57 obtained by clean PM EDT PM EDT catch procedure (specimen) Resulting Agency Comment Spec In Lab Petar Arriola MD MICROBIOLOGY - GENERAL ORDER TERESA Performing Organization Address City/[facility] [place] [address] CERNER MILLENNIUM Urinalysis with microscopic (09/20/2014 1:41 PM EDT) [facility] Method Time Signature Glucose UA Negative Negative CERNER mg/dL MILLENNIUM Protein UA Negative Negative CERNER mg/dL MILLENNIUM Bilirubin UA Negative Negative CERNER mg/dL MILLENNIUM Comment: Clinical correlation required for positi ve Urine Bilirubin results as false positive may occur with some drugs and d rug related products. If a false positive is suspected a serum total bili iqbal should be considered if clinically indicated. Urobilinogen UA Normal Normal mg/dL CERNER MILL ENNIUM pH UA 6.0 5.0 - 8.0 CERNER MILLENNIUM Blood UA Negative Negative mg/dL CERNER MILLENNI UM Ketones UA Negative Negative mg/dL CERNER MILLENN IUM Nitrite UA Negative Negative CERNER MILLENNIUM Leukocytes UA Negative Negative mcL CERNER HONG NIUM Appearance UA Clear Clear CERNER MILLENNIU M Spec [place] UA 1.008 1.002 - 1.030 CERNER MIL LENNIUM Color UA Straw Yellow CERNER MILLENNIUM RBC UA 1 0 - 4 /HPF CERNER MILLENNIUM WBC UA 1 0 - 5 /HPF CERNER MILLENNIUM Specimen Anatomical Collection Method Collection Time Receive d Time (Source) Location / / Volume Laterality Urine specimen 09/20/2014 1:41 PM 015 1:47 (specimen) EDT PM EDT Resulting Agency Comment Spec In Lab Petar Arriola MD URINE ORDERABLES Performing Organization Address City/[facility] [place] [address] CERNER MILLENNIUM Antibody screen (09/20/2014 1:29 PM EDT) [facility] Method Time Signature Ab Screen Negative CERNER Interp MILLENNIUM Expires at 10/22/2014 CERNER 2359 on: MILLENNIUM Specimen Anatomical Collection Method Collection Time Receive d Time (Source) Location / / Volume Laterality Blood specimen 09/20/2014 1:29 PM 015 1:32 (specimen) EDT PM EDT Resulting Agency Comment Spec In Lab Petar Arriola MD BLOOD BANK ORDERABLES Performing Organization Address City/State/ZIP Code Phon e Number [address] CERNER MILLENNIUM ABO/Rh Typing (09/20/2014 1:29 PM EDT) athologist [facility] ABORh Type A Neg CERNER MILLENNIUM Specimen Anatomical Collection Method Collection Time Receive d Time (Source) Location / / Volume Laterality Blood specimen 09/20/2014 1:29 PM 015 1:32 (specimen) EDT PM EDT Resulting Agency Comment Spec In Lab Petar Arriola MD BLOOD BANK ORDERABLES Performing Organization Address City/[facility]/ZIP Code Phon e Number [address] CERNER MILLENNIUM Differential, Automated (09/20/2014 1:29 PM EDT) athologist Signature Neutrophils % 60.4 % CERNER MILLENNIUM Neutr Abs (ANC) 4.38 1.50 - CERNER 6.30 MILLENNIUM x10(3)/mcL Lymphocytes % 27.4 % CERNER MILLENNIUM Lymphocytes Abs 2.0 1.0 - 3.6 CERNER x10(3)/mcL MILLENNIUM Monocytes % 8.3 % CERNER MILLENNIUM Monocyte Abs 0.6 0.2 - 1.0 CERNER x10(3)/mcL MILLENNIUM Eosinophils % 3.0 % CERNER MILLENNIUM Eosinophils Abs 0.2 0.0 - 0.5 CERNER x10(3)/mcL MILLENNIUM Basophils % 0.6 % CERNER MILLENNIUM Basophils Abs 0.0 0.0 - 0.2 CERNER x10(3)/mcL MILLENNIUM Immature Gran % 0.30 % CERNER MILLENNIUM Comment: Immature granulocytes(IG's)percentage an d absolute count will include metamyelocytes, myelocytes, and promyelo cytes. Blood smears from CBCs yielding IG's will be scanned manually for concor dance. If this scan disagrees with the automated IG or if promyelocytes are not ed, a manual differential will be performed. Peggy Gran Abs 0.02 0.00 - 0.05 x10(3)/mcL CER NER MILLENNIUM Specimen Anatomical Collection Method Collection Time Receive d Time (Source) Location / / Volume Laterality Blood specimen 09/20/2014 1:29 PM 015 1:46 (specimen) EDT PM EDT Resulting Agency Comment Spec In Lab Petar Arriola MD HEMATOLOGY ORDERABLES Performing Organization Address City/State/[place] [address] CERNER MILLENNIUM (ABNORMAL) Hemogram (09/20/2014 1:29 PM EDT) P athologist Signature WBC 7.2 4.0 - 10.0 CERNER x10(3)/mcL MILLENNIUM RBC 4.43 3.93 - CERNER 5.22 MILLENNIUM x10(6)/mcL Hemoglobin 13.0 11.2 - CERNER 15.7 gm/dL MILLENNIUM Hematocrit 40.7 34.0 - CERNER 45.0 % MILLENNIUM MCV 91.9 79.0 - CERNER 94.0 fL MILLENNIUM MCH 29.3 26.6 - CERNER 32.2 pg MILLENNIUM MCHC 31.9 (L) 32.0 - CERNER 36.5 gm/dL MILLENNIUM Platelets 269 145 - 370 CERNER x10(3)/mcL MILLENNIUM RDWSD 58.6 (H) 35.0 - CERNER 46.0 fL MILLENNIUM RDWCV 17.5 (H) 10.9 - CERNER 14.4 % MILLENNIUM MPV 10.2 9.0 - 12.0 CERNER fL MILLENNIUM Specimen Anatomical Collection Method Collection Time Receive d Time (Source) Location / / Volume Laterality Blood specimen 09/20/2014 1:29 PM 015 1:46 (specimen) EDT PM EDT Resulting Agency Comment Spec In Lab Petar Arriola MD HEMATOLOGY ORDERABLES Performing Organization Address City/State/ZIP Code Kade SMITH [place] [id number] CERNER [facility] (ABNORMAL) Hemoglobin A1c (09/20/2014 1:29 PM EDT) Analysis Performed At Patho logist Time Signature Hemoglobin A1C 5.8 (H) 4.3 - 5.6 CERNER % MILLENNIUM Comment: Reference Range: 4.3 - 5.6% 5.7 - 6.4% - Increased Risk of Developin g Diabetes Mellitus 6.5% - Consistent with diagnosis of Diab etes Mellitus In the absence of hyperglycemia (i.e. pl asma glucose > 200 mg/dL) or classic symptoms of hyperglycemia a repeat measu rement of HbA1c should be performed on a separate sample to confirm the diagnos is. Diagnosis and Classification of Diabetes Mellitus, Diabetes Care 2013; 36: Suppl. 1, S67-74 Est Avg Gluc See note mg/dL [facility] Comment: Estimated Average Glucose not appropriat e for patients over 70 years of age. eAG equivalents for HbA1c percentages: HbA1c(%) ?eAG(mg/dL) 6.0 ?126 6.5 ?140 7.0 ?154 7.5 ?169 8.0 ?183 8.5 ?197 9.0 ?212 9.5 ?226 10.0 ? 240 Limitations: The eAG calculation has not been validated on women, individuals below 18 years old and above 70 years old, and individuals with hemoglobinopathies. Additional resources are available on [facility] website: [email or web address] Harman HINDS, Harris J, Angela R, et al. ??Tr anslating the A1C assay into estimated average glucose values. ??Diabetes Care 2008:31(8):2455-2930. Specimen Anatomical Collection Method Collection Time Receive d Time (Source) Location / / Volume Laterality Blood specimen 09/20/2014 1:29 PM 015 1:46 (specimen) EDT PM EDT Resulting Agency Comment Spec In Lab Petar Arriola MD CHEMISTRY ORDERABLES Performing Organization Address City/[facility] Code Phon e Number [address] CERNER MILLENNIUM Protein, total (09/20/2014 1:29 PM EDT) P athologist Signature Total Protein 7.4 6.1 - 8.0 CERNER gm/dL MILLENNIUM Specimen Anatomical Collection Method Collection Time Receive d Time (Source) Location / / Volume Laterality Blood specimen 09/20/2014 1:29 PM 015 1:46 (specimen) EDT PM EDT Resulting Agency Comment Spec In Lab Petar Arriola MD CHEMISTRY ORDERABLES Performing Organization Address City/[facility]/ZIP Code Phon e Number [address] CERNER MILLENNIUM Albumin Level (09/20/2014 1:29 PM EDT) P athologist Signature Albumin 4.1 3.2 - 5.2 CERNER gm/dL MILLENNIUM Specimen Anatomical Collection Method Collection Time Receive d Time (Source) Location / / Volume Laterality Blood specimen 09/20/2014 1:29 PM 015 1:46 (specimen) EDT PM EDT Resulting Agency Comment Spec In Lab Petar Arriola MD CHEMISTRY ORDERABLES Performing Organization Address City/[facility]/[place] [address] CERNER MILLENNIUM High Sensitivity CRP (09/20/2014 1:29 PM EDT) P athologist Signature CRP High Sens 4.1 mg/L CERNER MILLENNIUM Comment: Interpretations: 1) For accurate cardiac risk assessment, the average of 2 values >2 weeks apart should be obtained (ref 1&2). A value >1 0 mg/L indicates an inflammatory condition, concentrations >10 mg/L shoul d not be used for cardiac risk assessment. ?<1.0 mg/L: low risk ?1.0 - 3.0 mg/L: moderate risk ?>3.0 mg/L: high risk groups for fu ture cardiovascular events 2) The general reference range of appare ntly healthy individuals using this test is <5.0 mg/L (derived from the test package insert) References: 1. Esther REDDY et. al. ??AHA/CDC Scientif ic Statement: Markers of Inflammation and Cardiovascular Disease. ??Circulatio n 2003; 107:499-511 2. Ridker PM. ??Clinical applications of C-reactive protein for cardiovascular disease detection and prevention. ??Circ ulation 2003; 107:363-369 Specimen Anatomical Collection Method Collection Time Receive d Time (Source) Location / / Volume Laterality Blood specimen 09/20/2014 1:29 PM 015 1:46 (specimen) EDT PM EDT Resulting Agency Comment Spec In Lab Petar Arriola MD CHEMISTRY ORDERABLES Performing Organization Address City/[facility]/ZIP Code Phon e Number [address] [facility] MILLENNIUM (ABNORMAL) Sedimentation rate (09/20/2014 1:29 PM EDT) P athologist Signature Sed Rate 30 (H) 0 - 20 CERNER mm/hr MILLENNIUM Specimen Anatomical Collection Method Collection Time Receive d Time (Source) Location / / Volume Laterality Blood specimen 09/20/2014 1:29 PM 015 1:46 (specimen) EDT PM EDT Resulting Agency Comment Spec In Lab Petar Arriola MD HEMATOLOGY ORDERABLES Performing Organization Address City/[facility] Phon e Number [address] CERNER MILLENNIUM Prothrombin Time (09/20/2014 1:29 PM EDT) athologist Signature PT 13.5 12.5 - 15.5 CERNER sec MILLENNIUM Comment: Transfusion Committee Guidelines: INR less than 2.0, PTT less than OR equal to 43.5 seconds, or Fibrinogen greater t [place] or equal to 100 mg/dl indicate adequate procoagulant activity for hemos tasis in patients without underlying bleeding disorders. INR 1.0 0.9 - 1.1 CERNER MILLENNIUM Specimen Anatomical Collection Method Collection Time Receive d Time (Source) Location / / Volume Laterality Blood specimen 09/20/2014 1:29 PM 015 1:46 (specimen) EDT PM EDT Resulting Agency Comment Spec In Lab Petar Arriola MD HEMATOLOGY ORDERABLES Performing Organization Address City/State/[place] [address] CERNER MILLENNIUM Basic Metabolic Panel (non-fasting) (09/20/2014 1:29 PM EDT) athologist Signature Glucose Lvl 87 65 - 199 CERNER mg/dL MILLENNIUM Comment: Diabetes: >=200 mg/dL plus symp toms BUN 18 8 - 18 mg/dL CERNER MILLENNIUM Creatinine 0.80 0.70 - 1.20 mg/dL CERNER MILL ENNIUM Comment: Please note that the pediatric reference intervals supplied above were not validated at [facility]. Results from pediatri c patients should be interpreted in conjunction to the patient's age, height and muscle mass. Sodium 143 135 - 145 mmol/L CERNER HONG NIUM Potassium 4.7 3.5 - 5.0 mmol/L CERNER HONG NIUM Comment: Please note: ??Patients with WBC >100,00 0 may have falsely elevated Potassium levels. ??For accurate Potassium quantif ication in these patients send serum separator tube (gold top) for subsequent determinations. ??Contact the Clinical Chemistry Laboratory if there are any qu estions. Chloride 102 98 - 107 mmol/L CERNER MILLENN IUM CO2 26 22 - 31 mmol/L CERNER MILLENNI UM Anion Gap 15 5 - 15 mmol/L CERNER MILLENNIU M Calcium 9.8 8.5 - 10.5 mg/dL [facility] Estimated GFR >60 >=60 [facility] Comment: This estimated GFR (eGFR) value was calc ulated using the MDRD equation which has been validated on patients between t he ages of 18 and 70. The MDRD should not be used to assess kidney function in patients < 18 years of age or in patients with extremes of body mass, or in patients with acute kidney failure. This value should be multiplied by 1.2 f or patients. For further information please copy and past e the following links into your internet browser. [email or web address] [email or web address] Specimen Anatomical Collection Method Collection Time Receive d Time (Source) Location / / Volume Laterality Blood specimen 09/20/2014 1:29 PM 015 1:46 (specimen) EDT PM EDT Resulting Agency Comment Spec In Lab Petar Arriola MD CHEMISTRY ORDERABLES Performing Organization Address City/State/[place] [address] [facility] CAMACHOIUM XR Joint Aspiration - Large Joint (09/20/2014 12:08 PM EDT) Anatomical Region Laterality Modality N/A Radiographic Imaging Specimen (Source) Anatomical Collection Method Collection Time Re ceived Time Location / / Volume Laterality 09/20/2014 12:08 PM EDT Impressions 09/20/2014 5:52 PM EDT IMPRESSION: Uneventful left hip aspiration. Resident/Fellow: None Attending: Summer Reyes performed this procedure. Narrative 09/20/2014 5:52 PM EDT HISTORY: Pain, R/O infection of left hip LEFT HIP ASPIRATION UNDER FLUOROSCOPY TECHNIQUE: After an extensive conversation with the patient regarding risks and benefits, oral and written consent were obtained. A pre- procedural time-out was performed as per [facility] protocol. The patient was placed supine on the flu oroscopic table. ??The skin overlying the left hip was prepped and draped in the u sual aseptic manner. 1% Lidocaine was used to achieve local anesthesia. Under fluoroscopic guidance, a 20-gauge spinal needle was advanced into the joint space . ??Small amount of air was injected to document needle placement. ??A small vol ume of synovial fluid returned. All needles removed at end of procedure. FINDINGS: 1. ??Small amount of injected air in the left hip joint space. 2. ??2 ml of synovial fluid aspirated, s ent for culture, sensitivity, gram stain and cell count. MEDICATIONS: Lidocaine 1% - <5 ml, for subcutaneous a nesthesia Fluoroscopy time: 12 sec COMPLICATIONS: None immediate. POST-PROCEDURE CARE: Instructions on mon itor of infection, management of post procedure pain were reviewed with jonnathan pepper Procedure Note Adolfo Wheeler MD - 09/20/2014Forma tting of this note might be different from the original. HISTORY: Pain, R/O infection of left hip LEFT HIP ASPIRATION UNDER FLUOROSCOPY TECHNIQUE: After an extensive conversation with the patient regarding risks and benefits, oral and written consent were obtained. A pre- procedural time-out was performed as per [facility] protocol. The patient was placed supine on the flu oroscopic table. The skin overlying the left hip was prepped and draped in the u sual aseptic manner. 1% Lidocaine was used to achieve local anesthesia. Under fluoroscopic guidance, a 20-gauge spinal needle was advanced into the joint space . Small amount of air was injected to document needle placement. A small volum e of synovial fluid returned. All needles removed at end of procedure. FINDINGS: 1. Small amount of injected air in the l eft hip joint space. 2. 2 ml of synovial fluid aspirated, sen t for culture, sensitivity, gram stain and cell count. MEDICATIONS: Lidocaine 1% - <5 ml, for subcutaneous a nesthesia Fluoroscopy time: 12 sec COMPLICATIONS: None immediate. POST-PROCEDURE CARE: Instructions on mon itor of infection, management of post procedure pain were reviewed with jonnathan pepper IMPRESSION IMPRESSION: Uneventful left hip aspirati on. Resident/Fellow: None Attending: Summer Reyes performed this procedure. Petar Arriola MD IMG DX ORDERABLES Anaerobic Culture (09/20/2014 11:48 AM EDT) [facility] Method Time Signature Anaerobic No anaerobic CERNER Culture organisms MILLENNIUM isolated Specimen Anatomical Collection Method Collection Time Receive d Time (Source) Location / / Volume Laterality Joint fluid LEFT HIP REGION 09/20/2014 11:48 09/21/19 15 specimen STRUCTURE / AM EDT 12:38 PM EDT (specimen) Unknown Resulting Agency Comment Spec In Lab Petar Arriola MD MICROBIOLOGY - GENERAL ORDER TEERSA Performing Organization Address City/[facility]/ZIP Code Phon e Number [address] CERNER MILLENNIUM Joint Culture (09/20/2014 11:48 AM EDT) Component Value Ref Test Analysis Performed At Patholo gist Range Method Time Signature Joint Culture No growth at 14 CERNER days. MILLENNIUM Gram Stain Cytocentrifuge Gram Stain performed CERNER White Blood Cells seen MILLENN IUM No microorganisms seen. Results called to and read back by Dr. Petar hussein s tat gram stain result. ??TS ??09/20/2014 13:05:48 Specimen Anatomical Collection Method Collection Time Receive d Time (Source) Location / / Volume Laterality Joint fluid LEFT HIP REGION 09/20/2014 11:48 09/21/19 15 specimen STRUCTURE / AM EDT 12:38 PM EDT (specimen) Unknown Resulting Agency Comment Spec In Lab Petar Arriola MD MICROBIOLOGY - GENERAL ORDER TERESA Performing Organization Address City/[facility]/ZIP Code Phon e Number [address] CERNER MILLENNIUM Cell Count Body Fluid Hip Joint Fluid (09/20/2014 11:48 AM EDT) P athologist Signature Spec Type BF Hip CERNER MILLENNIUM Color BF Red CERNER MILLENNIUM Appearance BF Cloudy CERNER MILLENNIUM Nucl Cell BF Ct 728 /mcl CERNER MILLENNIUM Comment: If Nucleated Cell Count equals zero, No Scan or Differential is performed. If Nucleated Cell Count equals 1-5, Smea r is scanned but no results are reported unless abnormalities are seen. If Nucleated Cell Count equals [address], Differential is reported. Nucleated Cell Count results are correla terri with body fluid type and clinical condition. Neut Absolute BF 400 /mcl CERNER HONG NIUM Neutrophil BF 55 % CERNER MILLENNIU M Lymphocyte BF 26 % CERNER MILLENNIU M Macrophage BF 16 % CERNER MILLENNIU M Eosinophil BF 2 % CERNER MILLENNIU M Plasma Cell BF 1 % CERNER MILLENNI UM Tot Diff Ct BF [address] [facility] Specimen Anatomical Collection Method Collection Time Receive d Time (Source) Location / / Volume Laterality Hip joint 09/20/2014 11:48 09/20/2014 synovial fluid AM EDT 12:24 PM EDT (specimen) Resulting Agency Comment Spec In Lab Petar Arriola MD BODY FLUIDS AND STOOLS ORDER TERESA Performing Organization Address City/State/[place] [address] [facility] documented in this encounter Visit Diagnoses Diagnosis Infected prosthesis of left hip, subsequ ent encounter Debility, unspecified Pain of left thigh Pain in limb Hyperglycemia Other abnormal glucose documented in this encounter Care Teams Director Internal Audit Relationship Specialty Start Date End Date Nayla Caputo MD PCP - General 12/13/11 10/25/15 [address] [place] [address] documented as of this encounter
--- OUTSIDE RECORDS SUMMARY | 2021-10-09 21:47 | XMS_ITS | Encounter Summary ---
:1940 Author Organization [facility] Address [address] [place] [address] Care Team Providers Name Role Phone Nayla Caputo MD Primary Care Provider Reason for Visit Reason Comments Left Hip Pain left charisse revision case req Encounter Details Date Type Department Care Team Description 10/04/2014 Office Visit Orthopaed[facility] at [facility] [place] Infection of [facility] Petar Arriola MD [facility] [place] [address] prosthetic hip joint, [place] [address] Social History Tobacco Use Types Packs/Day [...] Sign Reading Time Taken Comments Blood Pressure 137/78 10/04/2014 11:35 AM EDT Pulse 71 10/04/2014 11:35 AM EDT Temperature - - Respiratory Rate - - Oxygen Saturation - - Inhaled Oxygen - - Concentration Weight 83.9 kg (185 lb) 10/04/2014 11:35 AM pt reported ; had EDT trouble with bal ance couldnt use scal e Height 160 cm (5' 3) 10/04/2014 11:35 AM EDT Body Mass Index 32.77 10/04/2014 11:35 AM EDT documented in this encounter Progress Notes Petar Arriola MD - 10/04/2014 10:49 AM EDT Pertinent Arthroplasty History: 1. Left CHARISSE 05/14/12 Dr. Monte ([facility]) 2. I+D Left hip wound 05/01/13, Dr. Monte 3. I+D and vac placement 07/07/13, Dr. Monte 4. R CHARISSE September 21, 2009 Dr. Monte 5. S/P Dr. Arriola s/p Left hip explant and antibiotic spacer on 06/23/2014. MSSA treated with Ceftriaxone This note is recorded by Swetha Dempsey RN acting as a scribe for Petar Arriola MD. PREOPERATIVE VISIT Interval History: Marcia Palma is a pleasant 74 y.o. year old female who underwent explantation of an infected totaljoint as outlined above. She is being seen today to discuss reimplantation of their left Hip after completion of appropriate antibiotic treatment as directed by the Infectious disease team and the OPATprogram. Her history and physical exam were reviewed in detail. Her history in regards to her infected joint was once again discussed and is outlined in my previousnotes. She has completed antibiotic therapy and is currently off antibiotics. An aspiration of the joint has been performed while on her antibiotic holiday and there has been no growth on extended 14 days cultures. She has been focusing on nutritional optimization. At this point she is here to discussreimplantation of their joint as part of the second stage of a two stage revision for infection. She does not endorse a history of DVT/PE or clotting Physical Exam: Exam is previously documented in my note and is essentially unchanged. Inspection of her skin on the operative side demonstrates a well healed incision with no signs of erythema or drainage. Significant Medical Comorbidities Patient Active Problem List Diagnosis Code ??? Lumbar degenerative disc disease 722.52 ??? Left hip pain 719.45 ??? 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 DM (diabetes mellitus), type 2 250.00 ??? Hypertension (HTN) 401.9 ??? HLD (hyperlipidemia) 272.4 ??? Restless leg syndrome 333.94 ??? 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 Anemia 285.9 ??? Rosacea 695.3 ??? S/P explant Left hip joint prosthesis and placement of antibiotic- impregnated cement spacer, 06/23/14 (Dr. Arriola) V88.21 ??? Left hip prosthetic joint infection 996.66 ??? Medication monitoring encounter V58.83 ??? residential current use of antibiotics V58.62 VITALS: BP Readings from Last 1 Encounters: 08/20/14 112/58 Pulse Readings from Last 1 Encounters: 09/20/14 69 There is no weight on file to calculate BMI. Relevant Lab Studies Lab Results Component Value Date WBC 7.2 09/20/2014 HGB 13.0 09/20/2014 HCT 40.7 09/20/2014 PLATELET 269 09/20/2014 CREATININE 0.80 09/20/2014 BUN 18 09/20/2014 NA 143 09/20/2014 K 4.7 09/20/2014 CRP 4.1 09/20/2014 SEDRATE 30* 09/20/2014 INR 1.0 09/20/2014 Recent Labs 09/20/14 1329 06/14/14 1140 HA1C 5.8* 6.6* No results for input(s): ALBUMIN in the last 168 hours. 09/20/14 Total protein 7.4 CrCl cannot be calculated (Unknown ideal weight.). A Neg Component Value Date/Time SPGRAVITYUA 1.008 09/20/2014 1341 PHUADIP 6.0 09/20/2014 1341 PROTEINUADIP Negative 09/20/2014 1341 GLUCOSEU Negative 09/20/2014 1341 KETONESUA Negative 09/20/2014 1341 UROBILIUADIP Normal 09/20/2014 1341 BLOODUADIP Negative 09/20/2014 1341 NITRATEUA Negative 09/20/2014 1341 LEUKOESTERUA Negative 09/20/2014 1341 WBCUA 1 09/20/2014 1341 BILIRUBINUA Negative 09/20/2014 1341 EKG: normal EKG, normal sinus rhythm, 05/27/14 scanned. Radiographic Analysis Together, we reviewed the preop radiographs obtained previously. There is evidence of an antibiotic spacer in place. There appears to be enough bone stock to allow reimplantation of a joint. Assessment and Plan: This is a pleasant 74 y.o. year-old female who presents for a preoperative appointment today to discuss reimplantation of a left Hip total joint arthroplasty after appropriate treatment for infection. I had a long discussion with her regarding the risks and benefits of reimplantation. I indicated thatin my opinion, this is the treatment option most likely to restore a more normal, pain-free level offunction but did discuss resection arthroplasty, fusion, and amputation as other options. We reviewed the possibility of reinfection of the joint after reimplantation as well. At this point in time expressed a desire to proceed with an attempt at salvaging their joint and all of their questions were answered. We then discussed in great detail the risks associated with the proposed HIP surgery. These includedbut were not limited to: bleeding (which may or may not require transfusion), infection, recurrent infection, wound healing issues, damage to nerves or blood vessels, deep venous thrombosis, pulmonary embolus, prosthetic failure, loosening, prosthetic fracture, femur or pelvic fracture, dislocation, leg-length inequality, persistent pain, need for future surgery, medical complications (including cardiac, respiratory and neurologic complications), anaesthetic complications, and . The patient seemed to understand the nature of this procedure's risks. We also discussed the likely benefit of improved stride length, improved range of motion, decreased pain, decreased need for pain medications and decrease functional limitations. The patient is aware that it would take on average 2-3 days in the hospital, followed by approximately 12-18 months to full rehabilitation. I did review the history and physical today which says the patient is cleared for surgery and has nospecific recommendations for further testing. I reviewed the labs and did not identify anything thatwould warrant surgical delay. We discussed DNR status and she is a Full Code We reviewed options for postoperative DVT prophylaxis, based on AAOS guidelines. We discussed the pros and cons of ASA vs. Coumadin in terms of effectiveness and clot / embolus preventions vs. risks ofbleeding and wound complications. My review of the patient's risk factors and considering the revision nature of the procedure with anticipated increased surgical time leads me to believe that they areat higher risk for a clot. We will thus plan to use Coumadin for 4 to 6 weeks postoperatively for DVT prophylaxis. Patient is unable to use Aspirin. We also reviewed their preferences regarding use of blood products and confirmed that while we wouldendeavor to minimize the risks of needing any transfusions, if circumstances were such that one or more were indeed required, she would NOT refuse a blood transfusion. We discussed with them the possible discharge scenarios including going home versus needing to go toa rehab facility depending on how well their mobility progresses post-operatively. Their desire is to be discharged to [facility]. Any remaining questions were solicited from the patient and answered. Ms. Palma wishes to proceed accordingly and informed consent was subsequently obtained for reimplantation arthroplasty of her left Hip with the understanding that if there are any intra-op signs of persistent infection we would proceed with repeat irrigation and debridement and placement of an another antibiotic spacer. Having more pain. Will give prescription for Vicodin (30#) to get her until surgery. We discussed using Celebrex for inpatient stay only after surgery for post- operative pain management. We discussed using Naprosyn for 60 days after surgery for post-operative pain management. I ensured that the patient has the needed samples of hibiclens wash to use both the night before andthe morning of the anticipated surgery. I have personally evaluated the patient and agree with the above note as recorded by Swetha Dempsey RN. Petar Arriola MD, MS 10/04/2014 The below has been copied from a prior note: ASSESSMENT AND PLAN: Ms. Palma is a 74-year-old female about two months out after explant of an infected total hip replacement. She has some concern about her wound. On exam, her wound appears completely benign. It is well healed with no signs of drainage. The distal aspect of the wound does have some thickened scar tissue around it, but this appears to be totally normal. I encouraged her to work on some deep scar massage to try to decrease some of the scar tissue. She is scheduled for an aspiration of her hip in a few weeks as well as repeat inflammatory markers. She is also scheduled to get her preoperative labs. Her inflammatory markers have been trending down nicely and she has had no symptoms since stopping her antibiotics. At this point, we will keep her on her regularly scheduled plan with a hip aspiration in a few weeks and scheduled surgery a few weeks after that. She knows to contact us with any questions. documented in this encounter Plan of Treatment Not on filedocumented as of this encounter Visit Diagnoses Diagnosis Infection of left prosthetic hip joint, subsequent encounter documented in this encounter Care Teams Chemical Manager Relationship Specialty Start Date End Date Nayla Caputo MD PCP - General 12/13/11 10/25/15 [address] [place] [address] documented as of this encounter
--- OUTSIDE RECORDS SUMMARY | 2021-10-09 21:47 | XMS_ITS | Encounter Summary ---
:1940 Author Organization [facility] [address] Care Team Providers Name Role Phone Nayla Galan MD Primary Care Provider Encounter Details Date Type Department Care Team Description 10/19/2014 Surgery Main Operating Room Petar Arriola, @ TOTAL HIP REVISION Marina Pollard MD ARTHROPLASTY, [facility] ([facility] 30.28) [facility] DR Castillo [place] [address] [place] [id number] [phone] (Wo rk) Social History Tobacco Use Types [...] Sign Reading Time Taken Comments Blood Pressure 113/43 10/22/2014 8:12 AM EDT Pulse 86 10/22/2014 8:12 AM EDT Temperature 36.7 ??C (98.1 ??F) 10/22/2014 8:12 AM EDT Respiratory Rate 18 10/22/2014 8:12 AM EDT Oxygen Saturation 99% 10/22/2014 8:12 AM EDT Inhaled Oxygen Concentration - - Weight 83.9 kg (185 lb) 10/19/2014 11:43 AM EDT Height 160 cm (5' 2.99) 10/19/2014 11:43 AM EDT Body Mass Index 32.78 10/19/2014 11:43 AM EDT documented in this encounter Discharge Summaries Key Winkler, ELECTRICIAN CONSTRUCTOR SUPERVISOR - 10/20/2014 3:33 PM EDT Discharge Summary Patient Name: Marcia Palma Patient Age: 74 y.o. Language: Ghanaian Race: White Ethnicity: Not nor Admit date: 10/19/2014 Discharge date and time: 10/22/2014 Attending Physician: Petar Arriola MD Discharge Physician: Petar Arriola MD Follow-up Recommendations for Providers: Future Appointments Date Time Provider Department Center 11/29/2014 10:20 AM Petar Arriola MD [facility] None Inpatient Provider Contact Information: Petar Arriola MD Joints: [phone]. After hours and weekends, call [facility] Plate Glass Installer Helper, , and have the Orthopedic resident paged. Discharge Diagnoses (Hospital Problems) and Secondary Diagnoses (Chronic Problems): Active Hospital Problems Diagnosis ??? 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 Arriola) Resolved Hospital Problems Diagnosis Date Resolved No resolved problems to display. Active Non-Hospital Problems Diagnosis ??? Left hip prosthetic joint infection ??? Medication monitoring encounter ??? [facility] current use of antibiotics ??? Retinal detachment ??? Anemia ??? Rosacea ??? DM (diabetes mellitus), type 2 ??? Hypertension (HTN) ??? HLD (hyperlipidemia) ??? Restless leg syndrome ??? Retinal detachment with retinal defect ??? Retinal lattice degeneration ??? 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 Left hip pain ??? Lumbar degenerative disc disease Operations/Major Procedures: 10/19/2014 Surgeon(s) and Role: * Petar Arriola MD - Primary * Ranulfo Coronado MD - Resident-Surgeon [place] Procedure(s): LEFT TOTAL HIP REVISION ARTHROPLASTY, COMPLETE MODIFIER RECLAIM DEPUY MODIFIER: PINNACLE GRIPTION TF ACETABULAR AUGMENTS MODIFIER PINNACLE ACETABULUM DEPUY History of Presentation: Marcia Palma is a 74 y.o. female with a complex history in regards to her left hip. In brief, she underwent a left total hip arthroplasty by Dr. Monte in [facility] in 2012. She had multiple issues with her wound with continued drainage and multiple I and Ds. 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 At that point, she was referred to [facility]. I believe she was initially seen by one of my partners,Dr. Wisdom who aspirated her hip and it was noted to be infected. He subsequently then referred her to me for further care. She was taken to the operating room back in May for an explant of her infected hip, which grew MSSA and she was treated with an appropriate course of IV ceftriaxone as dictatedthrough the OPAP program. After cessation of her antibiotics and appropriate antibiotic holiday, herhip was reaspirated with a negative culture for extended 14 days. She also had a decline in her inflammatory markers. It was felt that this likely represented eradication of the infection in her hip. We discussed other merits of revision hip replacement and reimplantation. I outlined the chance of recu rrence of her infection. We discussed the potential risks associated with revision surgery and this is outlined in my note. After risks and benefits were discussed, she consented to reimplantation of her left hip. Hospital Course: The patient was admitted via Same Day Surgery for the above operation. DVT prophylaxis was: Coumadin. Patient began rehab on POD#1 for weight bearing as tolerated of left leg and reinforcement of the Enhanced MILTON Precautions. Martínez was removed on POD#1 and patient was voiding spontaneously. Left hip Mepilex dressing to remain in place 7 days, was inspected POD#3 and found to be clean, dry and intact.Patient did have a bowel movement prior to discharge and was passing flatus and was taking a diet without difficulty. By POD#3 the patient was medically stable and was cleared for safe discharge to rehab per PT. Vital Signs at Discharge: Weight: Wt Readings from Last 1 Encounters: 10/19/14 83.915 kg (185 lb) Height: Ht Readings from Last 1 Encounters: 10/19/14 160 cm (5' 2.99) HC: HC Readings from Last 1 Encounters: No data found for HC BMI: Body mass index is 32.78 kg/(m^2). Last value Range last 24 hrs Temperature Temp: 36.7 ??C (98.1 ??F) Temp: [36.6 ??C (97.9 ??F)-36.7 ??C (98.1 ??F)] Heart Rate Heart Rate: 86 Heart Rate: [70-86] Blood Pressure BP: 113/43 mmHg BP: (96-116)/(35-45) Respiratory Rate Resp: 18 Resp: [15-18] SpO2 SpO2: 99 % SpO2: [97 %-99 %] Art BP BP (Arterial Line): -- Functional and Cognitive Status: Ambulating with a walker, cognitively intact. Important Studies and Lab Data: Labs: Last 3 wbc, hgb, hct plt Recent Labs 10/22/14 0354 10/21/14 0427 10/20/14 0335 WBC 7.5 8.4 12.5* HGB 8.6* 8.5* 10.6* HCT 26.6* 26.9* 32.6* PLATELET 198 198 242 Last 3 Lytes Recent Labs 10/22/14 0354 10/21/14 0427 10/20/14 0335 NA 137 134* 139 K 4.4 3.9 5.0 CL 105 101 102 CO2 24 22 21* BUN 21* 22* 21* CREATININE 0.87 0.81 0.74 Studies: Xray Pelvis 10/19/2014 EXAMINATION: PELVIS 1 OR 2 VIEWS/XPORT CLINICAL HISTORY: Other pertinent information: S/p Total Hip Arthroplasty evaluate for fracture and alignment TECHNIQUE: AP portable in the PACU. COMPARISON: 10/04/2014. FINDINGS: There is been interval placement of the left noncemented total hip arthroplasty with a cetabular and femoral shaft component well positioned. Postoperative changes with gas within the soft tissues present. Stable appearance to the right total hip arthroplasty. No acute complications. 10/19/2014 IMPRESSION: Status post left total hip arthroplasty. Portable view just covers the distal aspect of the left femoral shaft component. No peripheral lucency to suggest complication. No displaced fracture. Transfusions: No Discharge Conditions/Prognosis: Stable, awake, and alert. Mobilizing with a walker, pain controlled on oral medications. Discharge to: Rehab [facility] [address] [place] [id number] Updated Allergies/ADRs: Allergies Allergen Reactions ??? Amoxicillin Rash ??? Augmentin [Amoxicillin-Pot Clavulanate] Rash ??? Coq10 (Ubiquinol) Other (See Comments) Muscle Pain ??? Penicillins Patient states no reaction to this medication ??? Pravastatin Other (See Comments) Loss of muscle and body ??? Simvastatin Other (See Comments) Loss of muscle & body ??? Aspirin Other (See Comments) Change mental status Immunizations Given this Hospitalization: Immunization History Administered Date(s) Administered ??? Influenza Vaccine, Whole 01/26/2005, 01/23/2006 ??? Pneumococcal Polyvalent 23 11/17/2004 Discharge Medications: Your Medications New Medications Dose Details multivitamin Lmhm-Tk-KU-Min 27-0.4 mg Tab Commonly known as: THERAPEUTIC-M Take 1 tablet by mouth daily. 1 tablet Refills: 0 naproxen 500 mg Tab Commonly known as: NAPROSYN Take 1 tablet by mouth 2 times daily (with meals) for 40 days. 500 mg Refills: 0 omeprazole 20 mg Cpdr Commonly known as: PriLOSEC Take 1 capsule by mouth daily for 40 days. 20 mg Refills: 0 oxyCODONE 5 mg Tab Commonly known as: ROXICODONE Take 1-2 tablets by mouth every 4 hours as needed for Pain (mild to moderate pain (1-5) take 5 mg (one tablet), moderate to severe pain (6-10) take 10 mg (2 tablets)). 5-10 mg Quantity: 24 tablet Refills: 0 polyethylene glycol 17 gram Pwpk Commonly known as: MIRALAX Take 17 g by mouth 2 times daily. 17 g Refills: 0 warfarin 2.5 mg Tab Commonly known as: COUMADIN Take 1 tablet by mouth once for 1 dose. 2.5 mg Refills: 0 Continued medications with new dosing Dose Details acetaminophen 500 mg Tab Commonly known as: TYLENOL Take 2 tablets by mouth every 8 hours. What changed: - when to take this - reasons to take this 1000 mg Refills: 0 Continued medications, unchanged Dose Details Blood Sugar Diagnostic Strp Commonly known as: ONETOUCH ULTRA TEST Twice daily Quantity: 60 each Refills: 3 Blood-Glucose Meter Misc 1 each by Misc.(Non-Drug; Combo Route) route 2 times daily. 1 each Quantity: 60 each Refills: 3 CALCIUM+D ORAL Take 600 mg by mouth daily. 600 mg Refills: 0 eucerin Crea Apply topically as needed. Generic drug: white petrolatum-mineral oil Refills: 0 ferrous sulfate 325 mg (65 mg iron) Tab Take 325 mg by mouth daily (with breakfast). 325 mg Refills: 0 gabapentin 300 mg Cap Commonly known as: NEURONTIN Take 1 capsule by mouth nightly. 300 mg Quantity: 90 capsule Refills: 12 losartan 50 mg Tab Commonly known as: COZAAR Take 50 mg by mouth. 50 mg Refills: 0 metFORMIN 500 mg Tab Commonly known as: GLUCOPHAGE Take 500 mg by mouth 2 times daily (with meals). 500 mg Refills: 0 miconazole 2 % Crea Commonly known as: MICOTIN Apply topically 2 times daily. Refills: 0 RED YEAST RICE ORAL Take 1,000 mg by mouth daily. 1000 mg Refills: 0 rOPINIRole 0.25 mg Tab Commonly known as: REQUIP Take 0.25 mg by mouth 3 times daily. 0.25 mg Refills: 0 senna 8.6 mg Tab Commonly known as: SENOKOT Take 2 tablets by mouth every evening. 2 tablet Refills: 0 VITAMIN B-12 1,000 mcg Tab Take 1,000 mcg by mouth daily. Generic drug: cyanocobalamin 1000 mcg Refills: 0 STOPPED Medications HYDROcodone-acetaminophen 5-325 mg Tab Smoking Status at Discharge: History Smoking status ??? Never Smoker Smokeless tobacco ??? Never Used Instructions for Rehab Providers or PCP: 1. Anticoagulation: COUMADIN. INR Goal 2-3. Next INR due October 23. a. PT/INR to dose coumadin every Mon and Thurs or per your routine. Coumadin dose today, October 22, at 5pm = 2.5 mg. Will continue coumadin for 4 weeks. Last day = November 16. b. If the INR level is ever above 3.5 patient should not participate in aggressive Physical therapy exercises - can mobilize/ambulate. This will decrease the possibility of more bleeding into the Hip joint. Once the INR is less than 3.5 Physical therapy can be resumed. c. When the patient is discharged from rehab to home please FAX a copy of the coumadin/INR record [facility] - [phone]. 2. Activity: Enhanced: Full weight bearing as tolerated using walker/crutches at all times for balance and protection. Reinforce total hip precautions with elevated seating, raised toilet seat. Patientshould not flex the operative leg more than 90 degrees, should not internally rotate more than 10 degrees and should not cross legs. Use a pillow or the Abduction pillow between their legs to remind patient not to cross their legs. 3. Wear KAMINI hose to knees bilaterally - remove at least once per day to inspect skin. 4. Diet: Carb Control but increase fluids and fiber while on narcotic pain meds. 5. Salome/Sutures: Staple/suture removal 11-14 days after surgery (approximately November 02). 6. Dressing (Mepilex): Remove operative dressing 7 days from surgery (October 26). When it is removedcan leave the incision open to air or cover it with a light dressing. If +++ drainage and it is before October 26, remove this operative dressing and replace it with dry sterile gauze. Continue with daily dressing changes (and as needed) until the drainage stops, then remove the dressing and leave the incision open to air or lightly covered. 7. Shower: (Mepilex) yes but lightly pat the operative dressing dry if it becomes wet. DO NOT submerge the dressing/incision. After the Mepilex is removed, the left hip incision should be covered with a waterproof dressing before the shower, until the salome are removed. 8. Aggressive bowel regimen - LBM = October 21. 9. Physical therapy/Ocupational therapy twice a day 7 days per week. Instructions Given to Patient at Discharge: There are no Patient Instructions on file for this visit. General Instructions Activity: 1. Your weight-bearing status is - weight bearing as tolerated of left leg. 2. Remember to use a walker or crutches at all times for balance and protection. 3. Remember your hip precautions: Enhanced: DO NOT flex the operative leg more than 90 degrees. DO NOT cross your legs. USE a raised seating / toilet seat. Use a pillow or the Abduction pillow between your legs to remind you not to cross your legs. 4. Wear the KAMINI hose bilaterally to your lower legs until you are seen in follow-up. You should remove these at least once per day to inspect your skin. Anticoagulation follow-up: You are being discharged home on Coumadin??, see below for instructions. Coumadin?? (warfarin) Management upon Discharge ??? Reason for anticoagulation therapy: DVT (blood clot) prevention after Orthopedic surgery ??? Your Coumadin?? (warfarin) dosing instruction upon discharge is: ??? Day of discharge (October 22): 2.5 mg (one-half of the 5mg pills) at 5 PM. ??? Your next INR is scheduled on: October 23. This will be checked at rehab. ??? It is very important that you have your PT/INR checked regularly as your dose may change based on your lab values, at least twice per week (usually every Saturday and ). ??? INR Goal: 2 - 3 ??? Expected duration of treatment: 4 weeks (last day = 11/16) ??? Provider/Team responsible for ongoing outpatient anticoagulation management: ??? Provider/Team/Clinic: [facility] ? If you have not received a call from your provider, by 4pm, after having your INR drawn, please call the Orthopedic Clinic Nurse at [phone] for further dose instructions. If it is after 5pm oron the weekends, the Orthopedic resident numerical control machine tool operator will be managing your dosing (please call [phone] and ask for them to be paged). ??? Warfarin (Coumadin??) should be taken at the same time every day, usually at 5pm. The following table shows your most recent INR results and Coumadin?? doses: Date Notes INR Coumadin?? (mg) 10/19 day of operation - 5 mg 10/20 POD#1 1.1 5 mg 10/21 POD#2 1.6 2.5 mg 10/22 D/C POD#3 2.1 2.5 due at 5 pm ??? If your INR level is ever above 3.5 you should not participate in aggressive Physical therapy exercises - you can mobilize/ambulate. This will decrease the possibility of more bleeding into your joint. Once your INR is less than 3.5 you can resume Physical therapy. One of the Orthopedic nurses will call you with further instructions as needed. ??? Warfarin Education that was reviewed with you in the hospital: (please see your warfarin (Coumadin??) reference sheet for more information) ? Diet and medications can affect your INR ? Maintaining a diet with a consistent amount of vitamin K containing foods is important to keep your INR in range ? Avoid major changes in dietary habits ? Do not take or discontinue any prescription or agze-sfw-aglnhyw medications without asking your doctor or pharmacist ? Inform all your doctors, pharmacists and other healthcare providers that you take warfarin ? Warfarin increases your risk of bleeding ??? If you experience any of these signs or symptoms of bleeding or blood clot please seek immediatemedical attention: ?? Increased pain, swelling or sudden shortness of breath ?? Severe headache ?? Dizziness ?? Unusual bleeding or bruising ?? Changes in urine or bowel movement color ?? Coughing or spitting up blood or nosebleeds that do not stop or occur more often Diet: Resume your usual carb control home diet but increase your intake of fluids and fiber while you are on narcotic pain meds to prevent constipation. Driving: None until you are cleared to do so by your Orthopedic surgeon. You should not drive while you are on narcotic pain meds as they can affect your judgement and reaction time. Call your surgeon with any questions/concerns. Medications: 1. The pain medication you are on can cause constipation so increase your intake of fluids and fiberwhile you are on them. The stool softener, Pericolace, that has been prescribed can also be taken tofacilitate a bowel movement. You can also take an lvfe-oyr-yhpfznt medication, Miralax if needed to combat constipation. 2. If you need a renewal on your narcotic pain medication, you need to give the Orthopedic clinic enough time to process your request. This can take up to three days, so plan accordingly. 3. Continue the Tylenol around the clock for the next 10 days, (October 29). This can be effective incontrolling pain along with your other medications. Do not take more than 3,000 mg of Tylenol in 24 hours. 4. You have been discharged on a short acting narcotic, Oxycodone. You will be on this medication for a limited period of time only. Taper off this medication as your pain improves. 5. You are being discharged on prescription strength naproxen (Aleve). This medication is a type of nonsteroidal anti-inflammatory (NSAID). This will help with your pain and inflammation. You will takethis twice a day for the next 6 weeks. Your last dose will be on November 30. When your pain is controlled and you are taking only 1-2 doses of Oxycodone in 24 hours, you may stop the Naproxen. 6. You are being discharged on a proton pump inhibitor (Prilosec) - this will decrease stomach irritation that may be caused by NSAIDs. You will take this daily for the next 6 weeks (while you are on the NSAID). Your last dose will be on November 30. 7. You are being discharged on gabapentin (Neurontin), a non-narcotic medication that will help withyour pain at night and allow you to sleep better. You will take this at night for the next 4 weeks. Shower (salome/sutures): 1. You can shower but remember your activity limitations and always have a chair available for balance and protection. DO NOT submerge the dressing/incision. 2. (Mepilex) Do not let water run over the operative dressing. If it becomes wet lightly pat the dressing dry. DO NOT submerge the incision. 3. You have salome/sutures. Always cover them with a waterproof dressing or plastic bag when showering until they are removed. 4. After salome/sutures are removed you can let water run gently over the incision. Wound (Mepilex): 1. Staple/suture removal 12-14 days after surgery (approximately 11/02). 2. Do not lift the edge of the Mepilex dressing to inspect the incision, it will not re-adhere. Remove your operative dressing 7 days from your surgery (10/26). When it is removed you can leave the incision open to air or cover it with a light dressing. 3. If you have lots of drainage when you get home (and it is before 10/26), remove this operative dressing and replace it with dry sterile gauze. Continue with daily dressing changes (and as needed) until the drainage stops, then remove the dressing and leave the incision open to air or lightly covered. Misc: Remember that ICE and elevation are very important after surgery to help decrease swelling andcontrol pain. Use ICE for 20-30 minutes at a time and keep your leg elevated as much as possible. FOLLOW-UP APPOINTMENTS: 1. You will have followup appointments at [facility] as indicated below in Future Appointment and Orders. 2. You will need to have have x-rays prior to your follow-up appointment on 11/29. Please come to Radiology, desk , 1 hour BEFORE that appointment for those x-rays. Future Appointments Date Time Provider Department Center 11/29/2014 10:20 AM Petar Arriola MD [facility] 3C None If you have questions or concerns: Saturday through Saturday, 8 AM - 5 PM, please call Petar Ahuja MD's office at . If it is after 5 PM, the weekend, or holidays, please call and ask to speak with the Orthopedic resident on-call. Future Appointments and Orders Future Appointments Provider Department Dept Phone 11/29/2014 10:20 AM Petar Arriola MD Orthopaedics [phone] Joint Appt ORTHO, [facility] Orthopaedics [phone] Future Orders Complete By Expires Referral for Anticoagulation Monitoring [BIM503 Custom] As directed Process Instructions: If no progress note charted, please enter Clinical details in comments. Scheduling Instructions: Questions: INR Goal: 2.0-3.0 Responsible Group: [facility] Target End Date: 11/16/2014 Next due INR: 10/23/2014 Risk Factors: Rise in INR from 1.6 to 2.1 October 22. My question or request is: Coumadin, s/p Left MILTON Revision 10/19 Primary Care Provider: NAYLA GALAN MD [phone] Discharge References/Attachments WARFARIN (ETHIOPIAN) documented in this encounter Discharge Instructions Discharge InstructionsSaKey canada, ELECTRICIAN CONSTRUCTOR SUPERVISOR - 10/22/2014 12:10 PM EDT Activity: 1. Your weight-bearing status is - weight bearing as tolerated of left leg. 2. Remember to use a walker or crutches at all times for balance and protection. 3. Remember your hip precautions: Enhanced: DO NOT flex the operative leg more than 90 degrees. DO NOT cross your legs. USE a raised seating / toilet seat. Use a pillow or the Abduction pillow between your legs to remind you not to cross your legs. 4. Wear the KAMINI hose bilaterally to your lower legs until you are seen in follow-up. You should remove these at least once per day to inspect your skin. Anticoagulation follow-up: You are being discharged home on Coumadin??, see below for instructions. Coumadin?? (warfarin) Management upon Discharge ??? Reason for anticoagulation therapy: DVT (blood clot) prevention after Orthopedic surgery ??? Your Coumadin?? (warfarin) dosing instruction upon discharge is: ??? Day of discharge (October 22): 2.5 mg (one-half of the 5mg pills) at 5 PM. ??? Your next INR is scheduled on: October 23. This will be checked at rehab. ??? It is very important that you have your PT/INR checked regularly as your dose may change based on your lab values, at least twice per week (usually every Saturday and ). ??? INR Goal: 2 - 3 ??? Expected duration of treatment: 4 weeks (last day = 11/16) ??? Provider/Team responsible for ongoing outpatient anticoagulation management: ??? Provider/Team/Clinic: [facility] ? If you have not received a call from your provider, by 4pm, after having your INR drawn, please call the Orthopedic Clinic Nurse at [phone] for further dose instructions. If it is after 5pm oron the weekends, the Orthopedic resident numerical control machine tool operator will be managing your dosing (please call [phone] and ask for them to be paged). ??? Warfarin (Coumadin??) should be taken at the same time every day, usually at 5pm. The following table shows your most recent INR results and Coumadin?? doses: Date Notes INR Coumadin?? (mg) 10/19 day of operation - 5 mg 10/20 POD#1 1.1 5 mg 10/21 POD#2 1.6 2.5 mg 10/22 D/C POD#3 2.1 2.5 due at 5 pm ??? If your INR level is ever above 3.5 you should not participate in aggressive Physical therapy exercises - you can mobilize/ambulate. This will decrease the possibility of more bleeding into your joint. Once your INR is less than 3.5 you can resume Physical therapy. One of the Orthopedic nurses will call you with further instructions as needed. ??? Warfarin Education that was reviewed with you in the hospital: (please see your warfarin (Coumadin??) reference sheet for more information) ? Diet and medications can affect your INR ? Maintaining a diet with a consistent amount of vitamin K containing foods is important to keep your INR in range ? Avoid major changes in dietary habits ? Do not take or discontinue any prescription or yizh-yli-fjnyopi medications without asking your doctor or pharmacist ? Inform all your doctors, pharmacists and other healthcare providers that you take warfarin ? Warfarin increases your risk of bleeding ??? If you experience any of these signs or symptoms of bleeding or blood clot please seek immediatemedical attention: ?? Increased pain, swelling or sudden shortness of breath ?? Severe headache ?? Dizziness ?? Unusual bleeding or bruising ?? Changes in urine or bowel movement color ?? Coughing or spitting up blood or nosebleeds that do not stop or occur more often Diet: Resume your usual carb control home diet but increase your intake of fluids and fiber while you are on narcotic pain meds to prevent constipation. Driving: None until you are cleared to do so by your Orthopedic surgeon. You should not drive while you are on narcotic pain meds as they can affect your judgement and reaction time. Call your surgeon with any questions/concerns. Medications: 1. The pain medication you are on can cause constipation so increase your intake of fluids and fiberwhile you are on them. The stool softener, Pericolace, that has been prescribed can also be taken tofacilitate a bowel movement. You can also take an gyng-gfv-lbhqntx medication, Miralax if needed to combat constipation. 2. If you need a renewal on your narcotic pain medication, you need to give the Orthopedic clinic enough time to process your request. This can take up to three days, so plan accordingly. 3. Continue the Tylenol around the clock for the next 10 days, (October 29). This can be effective incontrolling pain along with your other medications. Do not take more than 3,000 mg of Tylenol in 24 hours. 4. You have been discharged on a short acting narcotic, Oxycodone. You will be on this medication for a limited period of time only. Taper off this medication as your pain improves. 5. You are being discharged on prescription strength naproxen (Aleve). This medication is a type of nonsteroidal anti-inflammatory (NSAID). This will help with your pain and inflammation. You will takethis twice a day for the next 6 weeks. Your last dose will be on November 30. When your pain is controlled and you are taking only 1-2 doses of Oxycodone in 24 hours, you may stop the Naproxen. 6. You are being discharged on a proton pump inhibitor (Prilosec) - this will decrease stomach irritation that may be caused by NSAIDs. You will take this daily for the next 6 weeks (while you are on the NSAID). Your last dose will be on November 30. 7. You are being discharged on gabapentin (Neurontin), a non-narcotic medication that will help withyour pain at night and allow you to sleep better. You will take this at night for the next 4 weeks. Shower (salome/sutures): 1. You can shower but remember your activity limitations and always have a chair available for balance and protection. DO NOT submerge the dressing/incision. 2. (Mepilex) Do not let water run over the operative dressing. If it becomes wet lightly pat the dressing dry. DO NOT submerge the incision. 3. You have salome/sutures. Always cover them with a waterproof dressing or plastic bag when showering until they are removed. 4. After salome/sutures are removed you can let water run gently over the incision. Wound (Mepilex): 1. Staple/suture removal 12-14 days after surgery (approximately 11/02). 2. Do not lift the edge of the Mepilex dressing to inspect the incision, it will not re-adhere. Remove your operative dressing 7 days from your surgery (10/26). When it is removed you can leave the incision open to air or cover it with a light dressing. 3. If you have lots of drainage when you get home (and it is before 10/26), remove this operative dressing and replace it with dry sterile gauze. Continue with daily dressing changes (and as needed) until the drainage stops, then remove the dressing and leave the incision open to air or lightly covered. Misc: Remember that ICE and elevation are very important after surgery to help decrease swelling andcontrol pain. Use ICE for 20-30 minutes at a time and keep your leg elevated as much as possible. FOLLOW-UP APPOINTMENTS: 1. You will have followup appointments [place] [facility] as indicated below in Future Appointment and Orders. 2. You will need to have have x-rays prior to your follow-up appointment on 11/29. Please come to Radiology, desk 3T, 1 hour BEFORE that appointment for those x-rays. Future Appointments Date Time Provider Department Center 11/29/2014 10:20 AM Petar Arriola MD [facility] None If you have questions or concerns: Saturday through Saturday, 8 AM - 5 PM, please call Petar Ahuja MD's office at . If it is after 5 PM, the weekend, or holidays, please call and ask to speak with the Orthopedic resident on-call. AttachmentsThe following attachments cannot be sent through Care Everywhere. WARFARIN (ETHIOPIAN)documented in this encounter Medications at Time of Discharge Medication Sig Dispensed Refills Start Date End Date losartan (COZAAR) 50 mg Take 50 mg by 0 Tablet mouth. miconazole (MICOTIN) 2 % Apply topically as 0 Cream needed. white petrolatum-mineral Apply topically as 0 oil (EUCERIN) Cream needed. Blood-Glucose Meter Misc 1 each by 60 each 06/28/2014 Misc.(Non-Drug; Combo Route) route 2 times [...] multivitamin Take 1 tablet by 0 10/22/20142014 Jbop-Au-YK-Min mouth daily. (THERAPEUTIC-M) 27-0.4 mg Tablet oxyCODONE [...] (PRILOSEC) 20 Take 1 capsule by 0 09/3011/29/2014 mg Capsule, Delayed mouth daily for 40 Release(E.C.) days. RED YEAST RICE ORAL Take 1,000 mg by 0 07/21/2020 mouth daily. ferrous sulfate 325 mg Take 325 mg by 0 11/29/2014 (65 mg iron) Tablet mouth daily (with breakfast). rOPINIRole (REQUIP) 0.25 Take 0.25 mg by 0 10/26/2015 mg Tablet mouth 3 times daily. documented as of this encounter Progress Notes Scarlett Brian RN - 10/22/2014 12:54 PM EDT Patient discharge to rehab. IV removed, site benign. My assessment remains unchanged from my previous assessment. Patient denies chest pain and shortness of breath. RN Discussed pain management with patient, pain tolerable. Patient medicated prior to discharge. Patient has all belongings. Patient received After Visit Summary. These were reviewed. All questions answered. Patient was encouraged to callwith questions or concerns. Discharge packet and prescriptions given to ambulance service. Patient discharged to rehab facility via husbands car. Report called to rehab facility. Scarlett Brian RN Samy Marie PTA - 10/22/2014 12:45 PM EDT Physical Therapy Note Total Hip Arthroplasty Treatment # 3 Patient Profile: Pt. is a 74 y.o. female admitted on 10/19/2014 by Petar Ahuja MD for L re implant MILTON following spacer. (pt went to [facility] rehab following spacer for 5 weeks. PMH: Past Medical History Diagnosis Date ??? Lumbar degenerative disc disease 12/13/2011 ??? Left hip pain 01/17/2012 PSH: Past Surgical History Procedure Laterality Date ??? Removal of hip prosthesis, complex Left 06/23/2014 @TOTAL HIP PROSTHESIS, REMOVAL performed by Petar Arriola MD at [facility] OR ??? Left 06/23/2014 MODIFIER PROSTALAC DEPUY performed by Petar Arriola MD at [facility] OR ??? Revise total hip replacement Left 10/19/2014 @TOTAL HIP REVISION ARTHROPLASTY, COMPLETE performed by Petar Arriola MD at [facility] OR ??? Left 10/19/2014 MODIFIER RECLAIM DEPUY performed by Petar Arriola MD at [facility] OR ??? Left 10/19/2014 MODIFIER PINNACLE ACETABULUM DEPUY performed by Petar Arriola MD at [facility] OR Social History: Patient lives with her . 3 steps with 1 railing to enter. Ind amb with FWW DEVELOPMENT EDUCATOR (50% PWB) Precautions/Special Considerations: WBAT L L/E, enhanced MILTON precautions (Enhanced Hip Precautions: Full weight bearing as tolerated using walker/crutches at all times for balance and protection. Reinforce total hip precautions with elevated seating, raised toilet seat. Patient should not flex the operative leg more than 90 degrees, should not internally rotate more than 10 degrees and should not cross legs. Use a pillow or the Abduction pillow between their legs to remind patient not to cross theirlegs.) Post-operative course: unremarkable Subjective: Patient states ???I really like rehab because they help me get strong enough to go home!?? Objective: Vitals: WNL Most recent Hgb value: 8.6 Pain: Tolerable Functional Mobility: Supine><Sit with HOB flat, stand by supervision assist. Sit><Stand to and from the FWW, supervision assist of 1, VC for technique. Gait: Ambulated approx 150 ft with FWW and supervision assist. Gait pattern: Step-to gait progressing to consistent step through Pt. to utilize FWW and 1 assist to ambulate with nursing staff. Today???s Treatment: 1. Therapeutic functional 2. Post op ex 1-5 x 10 reps each 3. Review of enhanced precautions Informed Consent: The patient agrees to and understands the PT treatment plan and goals. Education: patient educated on Bed mobility, Transfers, Assistive device/technique, Exercise, Safety , Precautions/protocol, Gait , Role of therapy and Discharge planning and demonstrates understanding. Patient status, treatment, and mobility recommendations discussed with nursing staff. Assessment: Pt is POD#2 L MILTON revision/ re implant. Pt tolerated PT activities well. Pt continues to make daileyprogress with bed mobility, transfers, gait and exercise activities. Pt is motivated and will benefit from continue skilled therapy to address his/her functional deficits to restore prior level of function. Ambulation distance: 150 feet Goals: (to be achieved by 10/22/14) Goal met? Yes No Pt will be knowledgeable of prescribed exercises. x Pt will be knowledgeable and compliant with any above noted precautions. x Pt will move supine<>sit ind. x Pt will move sit<>stand ind. x Pt will ambulate 150 feet using FWW ind x Pt will negotiate 3 steps using 1 railing and 1 crutch. x Discharge Recommendations: Patient will require 22/10 supervision and assistance. Patient would benefit and tolerate continued daily intensive therapy interventions to maximize functional independence. Physical Therapist recommends: Occupational Therapy consult Plan: Patient to be seen daily for physical therapy to include Therapeutic exercises, Therapeutic functional activities and Gait training. Patient agrees to the plan as stated. Equipment needs: Patient has all necessary equipment. Activity plan w/nursing assist (discussed with nursing staff): amb with FWW and 1 assist, enhanced precautions Total treatment time: 45 minutes Total timed treatment: 40 minutes for therapeutic functional Samy Marie PTA Pager: [phone] Liz Wilson - 10/22/2014 10:25 AM EDT Office of Care Management/Sand Sifter Patient Name: Marcia Palma : 1940 Patient has been offered a SNF bed at [facility] Private car arranged for a 13:00 transport. No MD to MD report necessary Please call Nursing Report to , ask for auto air conditioning apprentice. Info to accompany patient: Narcotic Prescriptions Copies of Medication Administration Records and IV sheets for past 10 days. Plan: Sand Sifter will be available to the patient and CRC for further assistance. Patient will be discharged to: [place] [address] Saira Nixon Ranulfo Coronado MD - 10/22/2014 4:58 AM EDT Orthopaedic Surgery Progress Note: ID: Marcia Palma is a 74 y.o. female Surgery: Left Revision MILTON Attending: Dr. Arriola Date: 10/19/2014 Subjective and 24 Hour Events: - No problems overnight. No chest pain, sob, n/v - No pain at all - No light headedness/dizziness. Took 2 walks yesterday and has been feeling great. Last value Range last 24 hrs Temperature Temp: 36.6 ??C (97.9 ??F) Temp: [36.6 ??C (97.9 ??F)-36.7 ??C (98.1 ??F)] Heart Rate Heart Rate: 80 Heart Rate: [70-80] Blood Pressure BP: 111/40 mmHg (nurse informed) BP: (96-116)/(35-45) Respiratory Rate Resp: 17 Resp: [15-18] SpO2 SpO2: 98 % SpO2: [97 %-99 %] Intake/Output Summary (Last 24 hours) at 10/22/14 0458 Last data filed at 10/22/14 0310 Gross per 24 hour Intake 600 ml Output 0 ml Net 600 ml Well appearing, alert and oriented, appropriate Breathing comfortably LLE: Dressing c/d/i. Motor intact ADF/APF/EHL. Sensation grossly intact to light touch in SP/DP/T/S nerve distribution. Foot warm, palpable DP pulse, brisk cap refill distally. Recent Labs 10/22/1435310/21/1442610/20/1433410/19/141999 WBC 7.5 8.4 12.5* -- HGB 8.6* 8.5* 10.6* -- HCT 26.6* 26.9* 32.6* -- PLATELET 198 198 242 -- PT 23.9* 19.1* 14.1 14.4 INR 2.1* 1.6* 1.1 1.1 Recent Labs 10/22/1435310/21/1442610/20/14334 NA 137 134* 139 K 4.4 3.9 5.0 CL 105 101 102 CO2 24 22 21* BUN 21* 22* 21* CREATININE 0.87 0.81 0.74 GLUCOSE 129 138 148 CALCIUM 8.2* 8.1* 8.3* Imaging: post-op x-rays show good hardware placement without complication. A/P: Marcia Palma is a 74 y.o. female POD#3 s/p revision left MILTON. Awaiting rehab placement. Plan: ?? 5-10 mg Oxycodone Q 4 hours po PRN ?? 2 mg Dilaudid po for breakthrough pain q 3-4 hours?? PRN ?? for breakthrough pain 15 mg Toradol iv or im q 6 hours (max 4 doses) ?? 1000mg Tylenol po??? q8 hour ?? 600 mg Neurontin po qhs for 2 days followed by 300 mg Neurontin po qhs for 4 weeks (for insomnia) ?? Celebrex 200 mg po q 12 hours while in house with transition to Naprosyn 500mg bid at discharge ?? Nexium 20mg qd x 2 weeks (or other PPI) ?? Zofran 4 mg po/iv q 8 hours PRN nausea ?? D/C Martínez catheter in AM POD#1 ?? Perioperative prophylactic antibiotics for the next 24 hours ?? Xrays in PACU ?? Weight bearing status of operative extremity: Weight bearing as tolerated, Enhanced posterior hipprecautions ?? Wound closure: Salome to be removed in 14 days ?? Dressing changes: Mepilex Silver (Do not change for 7 days then a dry sterile dressing) ?? Follow-up Plan: As scheduled prior to surgery (approx. 5 weeks with x-rays) ?? Anticoagulation: Coumadin 4 weeks ?? Any possible barriers to discharge: Likely to require SNF ?? Plan for hospital stay: Standard ?? Anticipated Length of Stay: 2-3 days Future Appointments Date Time Provider Department Center 11/29/2014 10:20 AM Petar Arriola MD [facility] None Associated attestation - Petar Arriola MD - 10/22/2014 4:10 PM EDT I have seen the patient and reviewed the resident's above history/physical and I agree with the details as written. The assessment and plan were formulated in discussion with me and I agree with them as documented. Pain controlled, Up in chair, awaiting rehab bed PETAR ARRIOLA MD, MS 10/22/2014 Cynthia Francesbrett Coy, DEVELOPMENT EDUCATOR - 10/21/2014 1:06 PM EDT Physical Therapy Note Total Hip Arthroplasty Treatment # 2 Patient Profile: Pt. is a 74 y.o. female admitted on 10/19/2014 by Petar Ahuja MD for L re implant MILTON following spacer. (pt went to [facility] rehab following spacer for 5 weeks. PMH: Past Medical History Diagnosis Date ??? Lumbar degenerative disc disease 12/13/2011 ??? Left hip pain 01/17/2012 PSH: Past Surgical History Procedure Laterality Date ??? Removal of hip prosthesis, complex Left 06/23/2014 @TOTAL HIP PROSTHESIS, REMOVAL performed by Petar Arriola MD at [facility] OR ??? Left 06/23/2014 MODIFIER PROSTALAC DEPUY performed by Petar Arriola MD at [facility] OR ??? Revise total hip replacement Left 10/19/2014 @TOTAL HIP REVISION ARTHROPLASTY, COMPLETE performed by Petar Arriola MD at [facility] OR ??? Left 10/19/2014 MODIFIER RECLAIM DEPUY performed by Petar Arriola MD at [facility] OR ??? Left 10/19/2014 MODIFIER PINNACLE ACETABULUM DEPUY performed by Petar Arriola MD at [facility] OR Social History: Patient lives with her . 3 steps with 1 railing to enter. Ind amb with FWW DEVELOPMENT EDUCATOR (50% PWB) Precautions/Special Considerations: WBAT L L/E, enhanced MILTON precautions (Enhanced Hip Precautions: Full weight bearing as tolerated using walker/crutches at all times for balance and protection. Reinforce total hip precautions with elevated seating, raised toilet seat. Patient should not flex the operative leg more than 90 degrees, should not internally rotate more than 10 degrees and should not cross legs. Use a pillow or the Abduction pillow between their legs to remind patient not to cross theirlegs.) Post-operative course: unremarkable Subjective: Patient states ???I was so happy when I got up on my leg for the first time after surgery. It did not hurt like it did for the last two weeks!?? Objective: Vitals: WNL Most recent Hgb value: 8.5 Pain: Tolerable Functional Mobility: Supine><Sit with HOB flat, supervision assist. Sit><Stand to and from the FWW, contact guard assist of 1, VC for technique. Gait: Ambulated approx 150 ft with FWW and supervision assist. Gait pattern: Step-to gait progressing to short step through Pt. to utilize FWW and 1 assist to ambulate with nursing staff. Today???s Treatment: 1. Therapeutic functional 2. Post op ex 1-5 x 10 reps each 3. Review of enhanced precautions Informed Consent: The patient agrees to and understands the PT treatment plan and goals. Education: patient educated on Bed mobility, Transfers, Assistive device/technique, Exercise, Safety , Precautions/protocol, Gait , Role of therapy and Discharge planning and demonstrates understanding. Patient status, treatment, and mobility recommendations discussed with nursing staff. Assessment: Pt is POD#1 L MILTON revision/ re implant. Pt demonstrated increase tolerance and progress to functional bed mobility, transfers, gait and exercise activities. Pt presents with decreased ROM, strength, functional mobility, and gait skills. Pt will benefit from PT to address his/her functional deficits torestore prior level of function. Ambulation distance: 150 feet Goals: (to be achieved by 10/22/14) Goal met? Yes No Pt will be knowledgeable of prescribed exercises. x Pt will be knowledgeable and compliant with any above noted precautions. x Pt will move supine<>sit ind. x Pt will move sit<>stand ind. x Pt will ambulate 150 feet using FWW ind x Pt will negotiate 3 steps using 1 railing and 1 crutch. x Discharge Recommendations: Patient will require 24/ supervision and assistance. Patient would benefit and tolerate continued daily intensive therapy interventions to maximize functional independence. Physical Therapist recommends: Occupational Therapy consult Plan: Patient to be seen daily for physical therapy to include Therapeutic exercises, Therapeutic functional activities and Gait training. Patient agrees to the plan as stated. Equipment needs: Patient has all necessary equipment. Activity plan w/nursing assist (discussed with nursing staff): amb with FWW and 1 assist, enhanced precautions Total treatment time: 45 minutes Total timed treatment: 40 minutes for therapeutic functional Samy Marie PTA Pager: [phone] Ranulfo Coronado MD - 10/21/2014 5:59 AM EDT Orthopaedic Surgery Progress Note: ID: Marcia Palma is a 74 y.o. female Surgery: Left Revision MILTON Attending: Dr. rAriola Date: 10/19/2014 Subjective and 24 Hour Events: - No problems overnight. No chest pain, sob, n/v - No pain at all - No light headedness/dizziness. Took 4 walks yesterday and has been feeling great. Last value Range last 24 hrs Temperature Temp: 36.6 ??C (97.9 ??F) Temp: [36.4 ??C (97.5 ??F)-36.8 ??C (98.2 ??F)] Heart Rate Heart Rate: 76 Heart Rate: [67-84] Blood Pressure BP: 103/45 mmHg BP: (97-111)/(40-54) Respiratory Rate Resp: 16 Resp: [14-16] SpO2 SpO2: 97 % SpO2: [97 %-98 %] Intake/Output Summary (Last 24 hours) at 10/21/14 0559 Last data filed at 10/21/14 0408 Gross per 24 hour Intake 3510 ml Output 1800 ml Net 1710 ml Well appearing, alert and oriented, appropriate Breathing comfortably LLE: Dressing c/d/i. Motor intact ADF/APF/EHL. Sensation grossly intact to light touch in SP/DP/T/S nerve distribution. Foot warm, palpable DP pulse, brisk cap refill distally. Recent Labs 10/21/1442610/20/1433410/19/141999 WBC 8.4 12.5* -- HGB 8.5* 10.6* -- HCT 26.9* 32.6* -- PLATELET 198 242 -- PT 19.1* 14.1 14.4 INR 1.6* 1.1 1.1 Recent Labs 10/21/1442610/20/14334 NA 134* 139 K 3.9 5.0 CL 101 102 CO2 22 21* BUN 22* 21* CREATININE 0.81 0.74 GLUCOSE 138 148 CALCIUM 8.1* 8.3* Imaging: post-op x-rays show good hardware placement without complication. A/P: Marcia Palma is a 74 y.o. female POD#2 s/p revision left MILTON Plan: ?? 5-10 mg Oxycodone Q 4 hours po PRN ?? 2 mg Dilaudid po for breakthrough pain q 3-4 hours?? PRN ?? for breakthrough pain 15 mg Toradol iv or im q 6 hours (max 4 doses) ?? 1000mg Tylenol po??? q8 hour ?? 600 mg Neurontin po qhs for 2 days followed by 300 mg Neurontin po qhs for 4 weeks (for insomnia) ?? Celebrex 200 mg po q 12 hours while in house with transition to Naprosyn 500mg bid at discharge ?? Nexium 20mg qd x 2 weeks (or other PPI) ?? Zofran 4 mg po/iv q 8 hours PRN nausea ?? D/C Martínez catheter in AM POD#1 ?? Perioperative prophylactic antibiotics for the next 24 hours ?? Xrays in PACU ?? Weight bearing status of operative extremity: Weight bearing as tolerated, Enhanced posterior hipprecautions ?? Wound closure: Joes to be removed in 14 days ?? Dressing changes: Mepilex Silver (Do not change for 7 days then a dry sterile dressing) ?? Follow-up Plan: As scheduled prior to surgery (approx. 5 weeks with x-rays) ?? Anticoagulation: Coumadin 4 weeks ?? Any possible barriers to discharge: Likely to require SNF ?? Plan for hospital stay: Standard ?? Anticipated Length of Stay: 2-3 days Future Appointments Date Time Provider Department Center 11/29/2014 10:20 AM Petar Arriola MD [facility] None Associated attestation - Petar Arriola MD - 10/21/2014 1:57 PM EDT I have seen the patient and reviewed the resident's above history/physical and I agree with the details as written. The assessment and plan were formulated in discussion with me and I agree with them as documented. Pain controlled. Ambulating with PT. Awaiting rehab. PETAR ARRIOLA MD, MS 10/21/2014 Ranulfo Coronado MD - 10/20/2014 5:47 AM EDT Orthopaedic Surgery Progress Note: ID: Marcia Palma is a 74 y.o. female Surgery: Left Revision MILTON Attending: Dr. Arriola Date: 10/19/2014 Subjective and 24 Hour Events: - No problems overnight. No chest pain, sob, n/v - Has not stood up yet. No dizziness/light headedness while laying down - Having some muscle spasms Last value Range last 24 hrs Temperature Temp: 36.3 ??C (97.3 ??F) Temp: [36.2 ??C (97.2 ??F)-36.6 ??C (97.9 ??F)] Heart Rate Heart Rate: 75 Heart Rate: [55-85] Blood Pressure BP: 99/47 mmHg BP: (99-146)/(47-98) Respiratory Rate Resp: 16 Resp: [12-26] SpO2 SpO2: 99 % SpO2: [89 %-100 %] Intake/Output Summary (Last 24 hours) at 10/20/14 0547 Last data filed at 10/20/14 0400 Gross per 24 hour Intake 3352 ml Output 1675 ml Net 1677 ml Well appearing, alert and oriented, appropriate Breathing comfortably LLE: Dressing c/d/i. Motor intact ADF/APF/EHL. Sensation grossly intact to light touch in SP/DP/T/S nerve distribution. Foot warm, palpable DP pulse, brisk cap refill distally. Recent Labs 10/20/14 0335 10/19/141999 WBC 12.5* -- HGB 10.6* -- HCT 32.6* -- PLATELET 242 -- PT 14.1 14.4 INR 1.1 1.1 Recent Labs 10/20/14 033 NA 139 K 5.0 CL 102 CO2 21* BUN 21* CREATININE 0.74 GLUCOSE 148 CALCIUM 8.3* Imaging: post-op x-rays show good hardware placement without complication. A/P: Marcia Palma is a 74 y.o. female POD#1 s/p revision left MILTON Plan: ?? 5-10 mg Oxycodone Q 4 hours po PRN ?? 2 mg Dilaudid po for breakthrough pain q 3-4 hours?? PRN ?? for breakthrough pain 15 mg Toradol iv or im q 6 hours (max 4 doses) ?? 1000mg Tylenol po??? q8 hour ?? 600 mg Neurontin po qhs for 2 days followed by 300 mg Neurontin po qhs for 4 weeks (for insomnia) ?? Celebrex 200 mg po q 12 hours while in house with transition to Naprosyn 500mg bid at discharge ?? Nexium 20mg qd x 2 weeks (or other PPI) ?? Zofran 4 mg po/iv q 8 hours PRN nausea ?? D/C Martínez catheter in AM POD#1 ?? Perioperative prophylactic antibiotics for the next 24 hours ?? Xrays in PACU ?? Weight bearing status of operative extremity: Weight bearing as tolerated, Enhanced posterior hipprecautions ?? Wound closure: Salome to be removed in 14 days ?? Dressing changes: Mepilex Silver (Do not change for 7 days then a dry sterile dressing) ?? Follow-up Plan: As scheduled prior to surgery (approx. 5 weeks with x-rays) ?? Anticoagulation: Coumadin 4 weeks ?? Any possible barriers to discharge: Likely to require SNF ?? Plan for hospital stay: Standard ?? Anticipated Length of Stay: 2-3 days Future Appointments Date Time Provider Department Center 11/29/2014 10:20 AM Petar Arriola MD [facility] None Associated attestation - Petar Arriola MD - 10/20/2014 1:40 PM EDT I have seen the patient and reviewed the resident's above history/physical and I agree with the details as written. The assessment and plan were formulated in discussion with me and I agree with them as documented. Sitting up in chair, pain controlled. Reports some snapping in back of medial knee with flexion/extension. Appears to be hamstring related, will monitor. PETAR ARRIOLA MD, MS 10/20/2014 America Veloz MD - 10/20/2014 2:27 AM EDT Orthopaedic Surgery Post-Operative Progress Note Surgery: Left revision MILTON Patient seen: In 303A Subjective/Events: Patient denies chest pain, shortness of breath, dizziness, headache, abdominal pain, nausea, vomiting. Pain well-controlled. Objective: Vitals: Temp: [36.3 ??C (97.3 ??F)-36.4 ??C (97.5 ??F)] Heart Rate: [75-84] Resp: [16] BP: (105-129)/(55-69) SpO2: [99 %-100 %] I/O last 3 completed shifts: In: 2752 [I.V.:2752] Out: 850 [Urine:550; Blood:300] I/O this shift: In: 480 [P.O.:480] Out: 600 [Urine:600] Exam: General: NAD, patient resting comfortably, responds to questions upon awakening CV: RRR Resp: Breathing comfortably, lungs CTAB Musculoskeletal: LLE: 5/5 motor strength in EHL/FHL/TA/Gastrocs, SILT SPN/DPN/TN, toes are warm and well perfused with brisk capillary refill. Calves are soft and non-tender bilaterally. SCDs in place. Dressing overlying L lateral hip - meplex c/d/i No results for input(s): WBC, HGB, HCT, PLATELET, NA, K, CL, CO2, BUN, CREATININE in the last 72 hours. Radiology: Status post left total hip arthroplasty. Portable view just covers the distal aspect of the left femoral shaft component. No peripheral lucency to suggest complication. No displaced fracture. A/P: 74 y.o. year old female POD#0 s/p L revision MILTON . Vitals are stable and UOP is adequate. - Continue all post-operative care - Pain well controlled at this time Stefania Lux RN - 10/19/2014 6:05 PM EDT Marcia Palma, status post @TOTAL HIP REVISION ARTHROPLASTY, COMPLETE by Petar Arriola MD, admitted from PACU to room 303/303-A via bed. Pt educated and oriented to the hospital room, unit and nursing staff. Pt verbalized understanding. VSS. Assessment as documented. Will continue to monitor. Roxanne Davidson RN - 10/19/2014 5:37 PM EDT 1730- Pt. Seen by Dr. King. Roxanne Davidson RN - 10/19/2014 5:11 PM EDT 1705- Pt. Started on sips of H2O. Ice pack applied to L hip site. Roxanne Davidson RN - 10/19/2014 5:11 PM EDT 1645- Xray done. L foot wrapped w/warm pack. Abductor pillow in place. Sandy Cade RN - 10/19/2014 12:55 PM EDT Pt reporting she was told blood type O- in past. I made her aware that two past T+S were A-, currentT+S on file A-. Mahin SCHULTE made aware, confirmed A- is correct; past two T+S tests are A- on file here. 1257-Pt given PO meds per order, ox sat 99% RA, HR 81; pt alert and oriented, family and call meza at bedside. documented in this encounter H&P Notes Petar Arriola MD - 10/19/2014 12:29 PM EDT Please see H&P note for visit documentation and PCP note under scanned documents from 09/24/2014 The patient's history and physical exam have been reviewed and completed. There has been no intervalchange from that of the pre-operative history and physical exam done within the last 30 days. documented in this encounter Miscellaneous Notes Care Management - Erika Wells RN - 10/22/2014 9:52 AM EDT Office of Care Management Clinical Project Engineer Patient Name: Marcia Palma : 1940, 74 yrs Admission Date: 10/19/2014 10:54 AM Attending: Petar Arriola MD Record reviewed and patient discussed with multidisciplinary team. Pt [facility] [place] [address] In to discuss with pt and - agreeable to d/c plan. will transport pt @ 1pm today (after lunch). D/C packet @ nsg station with # for report. Nsg will need to add d/c summary and MAR along with any narcotic scripts. Erika Wells RN Office of Care Management Clinical Project Engineer Pager [phone] Vacuum Spindle Sander remains available as needed for coordination of care and discharge planning. Plan of Care - Roxanne Beltran RN - 10/22/2014 5:36 AM EDT Problem: General Plan of Care Goal: Plan of Care Review 10/21/14 1344 10/21/142034 Plan of Care Review Plan of Care Outcome Status ongoing (interventions implemented as appropriate) -- Progress progress toward functional goals as expected -- Coping/Psychosocial Response Interventions Plan of Care Reviewed with -- patient OUTCOME EVALUATION NOTE: OUTCOME SUMMARY: Pt alert oriented vital signs stable csm wnl up with walker and standby assist comfortable on scheduled tylenol and oxecodone 5 mg quiet restfull night PLAN MOVING FORWARD: plan d/c to rehab If bed avaleable INDIVIDUALIZED FALL PREVENTION: Assistance: up with walker and standby assist Supervision: As needed Surveillance: laura zhu CPG GOAL OUTCOME EVALUATION: Goal: Individualization and Mutuality 10/19/14209910/21/141343 Individualization Patient Specific Goals -- pain control, mobilize, rest Mutuality/Individual Preferences What anxieties, fears or concerns do you have about your health or care? none -- What questions do you have about your health or care? none -- What information would help us give you more personalized care? none -- Goal: Fall Prevention-Safe Patient Handling 10/21/14199910/21/14203410/22/14309 Safety Interventions Safety Precautions/Fall Reduction -- assistive device -- Musculoskeletal Interventions Activity/Level of Assistance -- -- up in room;ambulated;with walker;with stand by assist Positioning independent -- -- Self-Care Promotion adaptive equipment provided;independence encouraged while providing assistance;personal routines for BADL/IADL promoted -- -- Flores Fall Risk History of Falling -- 0 -- Secondary Diagnosis -- 15 -- Ambulatory Aids -- 15 -- Intravenous Therapy/Heparin/Saline Lock -- 0 -- Gait/Transferring -- 10 -- Mental Status -- 0 -- Score -- 40 -- Activity and Safety Assistive Device -- -- Front wheel walker OTHER Flores Fall Risk -- Med -- Goal: Infection Control 10/21/142034 Coping/Psychosocial Response Interventions Counseling emotional support provided Safety Interventions Isolation Precautions standard precautions maintained Infection Prevention environmental surveillance Goal: Discharge Needs Assessment 10/21/141343 Discharge Needs Assessment Concerns to be Addressed basic needs concerns;home safety concerns Readmission Within the Last 30 Days no previous admission in last 30 days Equipment Needed After Discharge walker, standard Discharge Facility/Level of Care Needs rehabilitation facility Current Health Outpatient/Agency/Support Group Needs inpatient rehabilitation facility Anticipated Changes Related to Illness inability to care for self Living Environment Transportation Available car;family or friend will provide Problem: Hip Replacement, Total (Adult) Goal: Signs and symptoms of listed potential problems will be absent or manageable (reference (Hip Replacement, Total (Adult)) CPG) 10/21/141343 Hip Replacement, Total Problems Assessed (Total Hip Replacement) all Problems Present (Total Hip Replacement) acute pain Plan of Care - Scarlett Brian RN - 10/21/2014 1:50 PM EDT Problem: General Plan of Care Goal: Plan of Care Review 10/21/14 1344 Plan of Care Review Plan of Care Outcome Status ongoing (interventions implemented as appropriate) Progress progress toward functional goals as expected Coping/Psychosocial Response Interventions Plan of Care Reviewed with patient;daughter OUTCOME EVALUATION NOTE: OUTCOME SUMMARY: Patient progressing towards d/c goals appropriately. Patient pain adequately controlled with minimalnarcotic use, patient trying to avoid as tolerated. Patient went to rehab gym with PT this morning, mobilized well. Patient frustrated about not knowing if rehab is definite for tomorrow, CRC in to see patient to explain process. Patient expressed fatigue, allowing period of rest this afternoon. Will continue to monitor and help patient reach d/c goals. PLAN MOVING FORWARD: Pain control Mobilize D/c rehab tomorrow if bed available. INDIVIDUALIZED FALL PREVENTION: Assistance: Patient is mobilizing with one assist and a walker. Supervision: Patient requires minimal assistance with ADL's. Surveillance: Patient monitored with purposeful rounding and alisa. CPG GOAL OUTCOME EVALUATION: Goal: Individualization and Mutuality 10/19/14 2100 10/21/14 1344 Individualization Patient Specific Goals -- pain control, mobilize, rest Mutuality/Individual Preferences What anxieties, fears or concerns do you have about your health or care? none -- What questions do you have about your health or care? none -- What information would help us give you more personalized care? none -- Goal: Fall Prevention-Safe Patient Handling 10/21/14 0827 10/21/14 1344 Safety Interventions Safety Precautions/Fall Reduction assistive device;commode/urinal/bedpan at bedside;environmental modification;fall reduction program maintained;lighting adjusted for task/safety;low bed;nonskid shoes/slippers when out of bed;room near unit station;family at bedside -- Musculoskeletal Interventions Positioning independent;up in chair -- Self-Care Promotion -- independence encouraged while providing assistance Flores Fall Risk History of Falling 0 -- Secondary Diagnosis 15 -- Ambulatory Aids 15 -- Intravenous Therapy/Heparin/Saline Lock 20 -- Gait/Transferring 10 -- Mental Status 0 -- Score 60 -- Activity and Safety Assistive Device Front wheel walker -- OTHER Flores Fall Risk High -- Goal: Infection Control 10/21/14 0827 10/21/14 1344 Coping/Psychosocial Response Interventions Counseling emotional support provided;goal setting facilitated;reassurance provided;verbalization offeelings encouraged -- Safety Interventions Isolation Precautions -- standard precautions maintained Infection Prevention environmental surveillance;rest/sleep promoted -- Goal: Discharge Needs Assessment 10/21/14 1344 Discharge Needs Assessment Concerns to be Addressed basic needs concerns;home safety concerns Readmission Within the Last 30 Days no previous admission in last 30 days Equipment Needed After Discharge walker, standard Discharge Facility/Level of Care Needs rehabilitation facility Current Health Outpatient/Agency/Support Group Needs inpatient rehabilitation facility Anticipated Changes Related to Illness inability to care for self Living Environment Transportation Available car;family or friend will provide Problem: Hip Replacement, Total (Adult) Goal: Signs and symptoms of listed potential problems will be absent or manageable (reference (Hip Replacement, Total (Adult)) [facility]) 10/21/14 1344 Hip Replacement, Total Problems Assessed (Total Hip Replacement) all Problems Present (Total Hip Replacement) acute pain Care Management - Erika Wells RN - 10/21/2014 12:25 PM EDT Office of Care Management Clinical Project Engineer Patient Name: Marcia Palma : 1940, 74 yrs Admission Date: 10/19/2014 10:54 AM Attending: Petar Arriola MD Order to Admit: Record reviewed and patient discussed with multidisciplinary team. Pt will be ready to d/c tomorrow.Family can transport. 1st choice and referral pending with [facility] bed. In to speak with pt. Aware that has not been accepted yet to [place]. Stated that that is where she wants to go but as a 2nd choice, [facility] [address] [address] Will make referral to [facility] Vacuum Spindle Sander remains available as needed for coordination of care and discharge planning. Erika Wells pe electrical engineer of Care Management Clinical Project Engineer Pager [phone] Plan of Care - Roxanne Beltran RN - 10/21/2014 7:41 AM EDT Problem: Skin Integrity Impairment, Risk/Actual (Adult, Obstetrics) Goal: Identify Signs and Symptoms and Related Risk Factors Signs and symptoms and related risk factors are identified upon initiation of Human Response Clinical Practice Guideline (CPG) OUTCOME EVALUATION NOTE: OUTCOME SUMMARY: Pt alert oriented x4 vital signs stable comfortable on po pain meds up with stand by assist and walker voiding In long naps PLAN MOVING FORWARD: Progressive ambulation pain control INDIVIDUALIZED FALL PREVENTION: Assistance: Up with walker and stand by assist Supervision: Oriented to own ability Surveillance: purposefull rounding mascholoo CPG GOAL OUTCOME EVALUATION: Goal: Skin Integrity/Wound Healing Patient will demonstrate the desired outcomes. 10/21/14 0737 Skin Integrity Impairment, Risk/Actual (Adult, Obstetrics) Skin Integrity/Wound Healing making progress toward outcome Problem: General Plan of Care Goal: Plan of Care Review 10/20/14 0725 10/20/14 0930 Plan of Care Review Plan of Care Outcome Status ongoing (interventions implemented as appropriate) -- Progress improving -- Coping/Psychosocial Response Interventions Plan of Care Reviewed with -- patient Goal: Individualization and Mutuality 10/19/14 2100 Mutuality/Individual Preferences What anxieties, fears or concerns do you have about your health or care? none What questions do you have about your health or care? none What information would help us give you more personalized care? none Goal: Fall Prevention-Safe Patient Handling 10/20/14 1900 10/20/142030 Flores Fall Risk History of Falling -- 0 Secondary Diagnosis -- 15 Ambulatory Aids -- 15 Intravenous Therapy/Heparin/Saline Lock -- 0 Gait/Transferring -- 10 Mental Status -- 0 Score -- 40 Activity and Safety Assistive Device Front wheel walker -- OTHER Flores Fall Risk -- Med Safety Interventions Safety Precautions/Fall Reduction -- assistive device Musculoskeletal Interventions Activity/Level of Assistance up in room;up in young;ambulated;with walker;with 1- person assist -- Positioning independent -- Goal: Infection Control 10/20/14 0930 Coping/Psychosocial Response Interventions Counseling calming techniques promoted;emotional support provided Safety Interventions Infection Prevention blood glucose management;bronchial hygiene promoted;environmental surveillance;hydration promoted;nutrition promoted;promote handwashing;rest/sleep promoted Goal: Discharge Needs Assessment 10/19/14 2100 Living Environment Transportation Available family or friend will provide Plan of Care - Stefania Lux RN - 10/20/2014 6:45 PM EDT Problem: General Plan of Care Goal: Plan of Care Review Outcome: Ongoing (Interventions Implemented as Appropriate) OUTCOME EVALUATION NOTE: OUTCOME SUMMARY: Pt had an eventful day. Pain controlled with PO tylenol and PO oxycodone. Pt reported feeling a little drunk with the oxycodone. RN held afternoon doses and pain was well controlled with tylenol. Pt had 100mL of clear, yellow urine at 1300 with 0mL PVR. PA ordered 500mL NS bolus. Pt was able to [id number] 3 hours later. Dressing is C/D/I. Family at the pts bedside visiting most of the day. PLAN MOVING FORWARD: PT/OT. Pain mgt. Monitor intake/output. D/C planning. INDIVIDUALIZED FALL PREVENTION: Assistance: Stand by assist with the walker. Supervision: Close to RN station; hourly rounding Surveillance: [facility] GOAL OUTCOME EVALUATION: Care Management - Erika Wells RN - 10/20/2014 2:49 PM EDT Office of Care Management Clinical Project Engineer Patient Name: Marcia Palma : 1940, 74 yrs Admission Date: 10/19/2014 10:54 AM Attending: Petar Arriola MD Order to Admit: pending Discussed patient with Provider Team and in multidisciplinary discharge-planning rounds. Reviewed record and interviewed patient. Introduced/reviewed CRC role and services accepted. REASON for HOSPITALIZATION: LEFT TOTAL HIP REVISION ARTHROPLASTY PMH: Refer to H&P for details PREVIOUS FUNCTIONAL STATUS: Independent with personal care. Has been unable to cook, clean or drive. assist her with this CURRENT FUNCTIONAL STATUS: In chair SOCIAL / FAMILY SUPPORTS: Lives with in ranch style house. Uses a walker to ambulate. 3 steps with rail going into home. Has 2 dtgs in area and 4 sons. ADVANCE DIRECTIVES: On File (), Requested Copy(), None on File (x) HEALTH /PRESCRIPTION COVERAGE: [facility] CURRENT HOME/COMMUNITY SERVICES/EQUIPMENT: DME: Walker, cane Home Health Agency: none DROP BOARD WORKER REFERRAL: No needs identified PRIMARY CARE PHYSICIAN: NAYLA GALAN MD [phone] POTENTIAL DISCHARGE NEEDS: Patient would benefit from acute/SNF/swing/LTAC rehab at discharge. Full Disclosure Statement provided, as appropriate. ?? Met with patient/family at bedside. Provided [facility] Office of Care Management letter from the [employer] pertaining to rehab referrals.. ?? Reviewed levels of rehab including SNF, swing, acute and LTAC. ?? A list that serves the geographical area which the patient resides or the geographical area requested has been provided through [employer] search. ?? Requested patient/family provide at least three choices for referral. ?? Patient/family request referrals to: [facility] (Swing) [address] [place] [address] Stated that if unable to get into above facility, would consider [facility] [phone]. Had vna in past and would rather not have again. Note routed to [employer] who will communicate referrals to facilities via [employer] program. TRANSPORTATION @ D/C: family PLAN: CRC will continue to monitor progress, follow for continuity of care and assist with dischargeplanning while hospitalized Erika Wells RN Office of Care Management Clinical Project Engineer Pager [phone] Initial Assessments - Veronique Benjamin OT - 10/20/2014 10:15 AM EDT Occupational Therapy Evaluation Patient profile: Marcia Palma is a 74 y.o. female patient of Petar Ahuja MD, admitted on 10/19/2014 for Left MILTON revision. Past Medical History Diagnosis Date ??? Lumbar degenerative disc disease 12/13/2011 ??? Left hip pain 01/17/2012 Past Surgical History Procedure Laterality Date ??? Removal of hip prosthesis, complex Left 06/23/2014 @TOTAL HIP PROSTHESIS, REMOVAL performed by Petar Arriola MD at [facility] OR ??? Left 06/23/2014 MODIFIER PROSTALAC DEPUY performed by Petar Arriola MD at [facility] MA[facility] OR Social History: Patient lives with her who is retired. Home Setup: 3 stairs to enter, 1 level inside with tub shower DME: raised toilet seat, shower chair, walker Baseline ADL/Mobility: Independent with ADL???s using adaptive equipment. Shares responsibility for meal prep with , assists with housework. Pt modified independent with mobility using walker. Precautions/Special Considerations: WBAT LLE, enhanced hip precautions (no hip FF >90 degrees, nohip IR >10 degrees, no hip adduction past midline) Subjective: I think rehab would be a good idea. Objective: Seen today for OT evaluation. Cognitive Status/Behavior: alert, oriented to person, place, and time, recalls precautions but needscues during functional activities Vision & Perception: Not assessed, WFL? s Range of motion, strength, coordination: Hand dominance: right Bilateral UEs are within functional limitations B LE's: moving against gravity Sensation: denies numbness/tingling Activities of Daily Living: Self-feeding: Independent with set up Hygiene grooming: seated with set up Upper and lower body dressing and bathing: max A for socks during evaluation - pt does use adaptive equipment at home Toileting: Toilet Transfer: NT - anticipate CGA Toilet Hygiene: NT Functional Mobility: Sit to stand: CGA with cues for technique Ambulation: to the nurses station and back to room with 1 person assist using walker, 2nd person forchair follow Stand to sit: CGA with cues for technique Balance: good sitting, 1 person assist for standing. IADL???s: Assistance available to patient. Endurance: Information taken from last recorded vitals in flowsheet. Last value Range last 8 hrs Heart Rate Heart Rate: 72 Heart Rate: [72-75] Blood Pressure BP: 97/40 mmHg BP: (97-99)/(40-47) SpO2 SpO2: 98 % SpO2: [98 %-99 %] Maintaining SpO2 96% on room air. Pain: None. Skin: Incision L hip. Informed Consent: The patient agrees to and understands the OT treatment plan and goals. Education: patient have been educated on Role of occupational therapy/rehabilitation, Transfers, ADL, Positioning, Safety, Precautions/Protocol, Functional Mobility and Recommendations and verbalizes un derstanding. Patient status, treatment, and mobility recommendations discussed with nursing. Assessment: Pt is POD #1 s/p Left MILTON revision. Pt presents with impaired ability to perform daily activities and functional mobility secondary to decreased activity tolerance, impaired dynamic standing balance, and hip precautions. Pt independently recalling precautions but requires cuing during functional activi ties for follow through. Pt would benefit from ongoing OT services to maximize functional independence while hospitalized. Recommendations: Equipment needs at discharge: Patient has all necessary equipment Discharge Recommendations: Patient will require 24/ supervision and assistance. Patient would benefit and tolerate continued daily intensive therapy interventions to maximize functional independence. Goals: To be achieved by 10/24/14. 1. Pt will demonstrate independent with precautions/restrictions during ADLs. 2. Pt will perform standing ADLs with supervision only. 3. Pt will dress self independently using adaptive technique/equipment as needed. 4. Pt will ambulate independently with assistive device as needed for ADLs. 5. Pt will demonstrate shower transfers with supervision and safe technique. Plan: Pt to be seen 2-3x's per week for therapy including Role of occupational therapy/rehabilitation, Transfers, Assistive device/technique, Adaptive equipment training, ADL, Safety, Precautions/Protocol, Functional Mobility, Activity pacing/Energy conservation, Home Management, Balance, Recommendations, Family training and Discharge planning. Eval Date: 10/20/2014 Total time spent with patient: 18 minutes for brief evaluation Total timed interventions: 0 minutes Pager: [phone] Veronique Benjamin OT 10/20/2014 Occupational Therapy Rehabilitation Department Initial Assessments - Gayatri Mayer, PT - 10/20/2014 9:00 AM EDT Physical Therapy Evaluation Total Hip Arthroplasty Patient Profile: Pt. is a 74 y.o. female admitted on 10/19/[address] MosPetar pena MD for L re implant MILTON following spacer. (pt went to [facility] rehab following spacer for 5 weeks. PMH: Past Medical History Diagnosis Date ??? Lumbar degenerative disc disease 12/13/2011 ??? Left hip pain 01/17/2012 PSH: Past Surgical History Procedure Laterality Date ??? Removal of hip prosthesis, complex Left 06/23/2014 @TOTAL HIP PROSTHESIS, REMOVAL performed by Petar Arriola MD at [facility] OR ??? Left 06/23/2014 MODIFIER PROSTALAC DEPUY performed by Petar Arriola MD at [facility] MA[facility] OR ??? Revise total hip replacement Left 10/19/2014 @TOTAL HIP REVISION ARTHROPLASTY, COMPLETE performed by Petar Arriola MD at [facility] OR ??? Left 10/19/2014 MODIFIER RECLAIM DEPUY performed by Petar Arriola MD at [facility] OR ??? Left 10/19/2014 MODIFIER PINNACLE ACETABULUM DEPUY performed by Petar Arriola MD at [facility] MA[facility] OR Social History: Patient lives with her . 3 steps with 1 railing to enter. Ind amb with FWW DEVELOPMENT EDUCATOR (50% PWB) Precautions/Special Considerations: WBAT L L/E, enhanced MILTON precautions (Enhanced Hip Precautions: Full weight bearing as tolerated using walker/crutches at all times for balance and protection. Reinforce total hip precautions with elevated seating, raised toilet seat. Patient should not flex the operative leg more than 90 degrees, should not internally rotate more than 10 degrees and should not cross legs. Use a pillow or the Abduction pillow between their legs to remind patient not to cross theirlegs.) Post-operative course: unremarkable Subjective: Patient states ???I'm hoping to go to rehab?? Objective: Vitals: SpO2: 97%, HR 72 bpm B/P 104/40 Most recent Hgb value: 10.6 Pain: minimal Functional Mobility: Supine->sit Ind with HOB elevated approx 40 deg Sit->supine N/E Sit->stand With bed elevated sl and 1 min assist Stand->sit With CG and VC s Gait: Ambulated approx 40 ft with FWW and 1 CG assist, limited by fatigue. Gait pattern: Step-to gait Pt. to utilize FWW and 1 assist to ambulate with nursing staff. Today???s Treatment: 1. eval 2. Post op ex 1-5 x 10 reps each 3. Review of enhanced precautions Informed Consent: The patient agrees to and understands the PT treatment plan and goals. Education: patient educated on Bed mobility, Transfers, Assistive device/technique, Exercise, Safety , Precautions/protocol, Gait , Role of therapy and Discharge planning and demonstrates understanding. Patient status, treatment, and mobility recommendations discussed with nursing staff. Assessment: Pt is POD#1 L MILTON revision/ re implant. Pt. tolerated today???s session ok. Pt is deconditioned baseline following antibiotic spacer and limited weightbearing. Pt presents with pain, decreased ROM, strength, functional mobility, and gait skills. Pt will benefit from PT to address his/her functional deficits to restore prior level of function. Ambulation distance: 40 feet Goals: (to be achieved by 10/22/14) Goal met? Yes No Pt will be knowledgeable of prescribed exercises. Pt will be knowledgeable and compliant with any above noted precautions. Pt will move supine<>sit ind. Pt will move sit<>stand ind. Pt will ambulate 150 feet using FWW ind Pt will negotiate 3 steps using 1 railing and 1 crutch. Discharge Recommendations: Patient will require 24/ supervision and assistance. Patient would benefit and tolerate continued daily intensive therapy interventions to maximize functional independence. Physical Therapist recommends: Occupational Therapy consult Plan: Patient to be seen daily for physical therapy to include Therapeutic exercises, Therapeutic functional activities and Gait training. Patient agrees to the plan as stated. Equipment needs: Patient has all necessary equipment. Activity plan w/nursing assist (discussed with nursing staff): amb with FWW and 1 assist, enhanced precautions Total treatment time: 35 minutes Total timed treatment: 0 minutes jeanmarie Mayer, PT Pager: [phone] Plan of Care - Roxanne Beltran RN - 10/20/2014 7:30 AM EDT Problem: General Plan of Care Goal: Plan of Care Review 10/20/14 0725 Plan of Care Review Plan of Care Outcome Status ongoing (interventions implemented as appropriate) Progress improving Coping/Psychosocial Response Interventions Plan of Care Reviewed with patient OUTCOME EVALUATION NOTE: OUTCOME SUMMARY: pt alert oriented x4 vital signs stable comfortable on po pain meds dressing dry and intact csm wnlfoley draining pale clear urine sleeping in long naps c/o of restless leg symptoms has scheduled requip PLAN MOVING FORWARD: pain control progressive ambulation INDIVIDUALIZED FALL PREVENTION: Assistance: Up with 2 assist Supervision: As needed Surveillance: laura melgozafulnieves rounding CPG GOAL OUTCOME EVALUATION: Goal: Individualization and Mutuality 10/19/14 2100 Mutuality/Individual Preferences What anxieties, fears or concerns do you have about your health or care? none What questions do you have about your health or care? none What information would help us give you more personalized care? none Goal: Fall Prevention-Safe Patient Handling 10/19/14 1630 10/19/14 2034 Flores Fall Risk History of Falling -- 0 Secondary Diagnosis -- 15 Ambulatory Aids -- 15 Intravenous Therapy/Heparin/Saline Lock -- 20 Gait/Transferring -- 10 Mental Status -- 0 Score -- 60 OTHER Flores Fall Risk -- High Safety Interventions Safety Precautions/Fall Reduction -- assistive device Musculoskeletal Interventions Positioning HOB up 15 degrees -- Goal: Infection Control 10/19/14 1830 Safety Interventions Infection Prevention blood glucose management;bronchial hygiene promoted;environmental surveillance;hydration promoted;nutrition promoted;promote handwashing;rest/sleep promoted Goal: Discharge Needs Assessment 10/19/14 2100 Living Environment Transportation Available family or friend will provide Op Note - Petar Arriola MD - 10/19/2014 4:50 PM EDT [facility] Patient Name: Marcia Palma : [id number] MR#: [id number] Case Date: 10/19/2014 Surgeon: Surgeon(s) and Role: * Petar Arriola MD - Primary * Ranulfo Coronado MD - Resident-Surgeon Costa Preoperative diagnosis: Reimplantation of MILTON after antibiotic spacer Postoperative diagnosis: Reimplantation of MILTON after antibiotic spacer Procedure(s): LEFT TOTAL HIP REVISION ARTHROPLASTY, COMPLETE MODIFIER RECLAIM DEPUY MODIFIER: PINNACLE GRIPTION TF ACETABULAR AUGMENTS MODIFIER PINNACLE ACETABULUM DEPUY Anesthesia: General Complications: none Fluids: 2500ml LR Estimated Blood Loss: 300 mL UOP: 450ml Drains: none Disposition: awakened from anesthesia, extubated and taken to the recovery room in a stable condition, having suffered no apparent untoward event. Condition: doing well without problems Attestation: Case Date: 10/19/2014 I was present and I participated during the entire procedure (does not need to include opening and closing). (Please see the Surgical Encounter Summary for any Implant and Specimen details pertinent to this patient.) INDICATIONS FOR PROCEDURE: Ms. Palma is a 74-year-old female with a complex history in regards to her left hip. In brief, she underwent a left total hip arthroplasty by Dr. Monte in [facility] back in 2012. She had multiple issues with her wound with continued drainage and multiple I and Ds. 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 At that point, she was referred to [facility] I believe she was initially seen by one of my partners, Dr. Wisdom who aspirated her hip and it was noted to be infected. He subsequently then referred her to me for further care. She was taken to the operating room back in May for an explant of her infected hip, which grew MSSA and she was treated with an appropriate course of IV ceftriaxone as dictated through the OPAP program. After cessation of her antibiotics and appropriate antibiotic holiday, her hip was reaspirated with a negative culture for extended 14 days. She also had a decline in her inflammatory markers. It was felt that this likely represented eradication of the infection in her hip. We discussed other merits of revision hip replacement and reimplantation. I outlined the chance of recurrence of her infection. We discussed the potential risks associated with revision surgery and this is outlined in my note. After risks and benefits were discussed, she consented to reimplantation of her left hip. INTRAOPERATIVE FINDINGS: We excised her old scar. There was no evidence of superficial fluid or gross signs of infection. The hip joint was aspirated prior to the arthrotomy and the cell count returned at 1005 cells with 47% neutrophils. There was no gross evidence of infection. We proceeded with the explant of the spacer and revision total hip using the ReClaim system and a multihole cup. PROCEDURE: The patient was met in the preoperative holding area where informed consent was confirmed, the appropriate site was marked, and the preoperative checklist was complete. The patient was taken to the operating where a general anesthetic was administered. A Martínez catheter was introduced under sterile conditions. The patient was then positioned in the right lateral decubitus position with the left hip up. An axillary roll was placed. All bony prominences were well padded. A clinical time-out was held confirming the correct patient, procedure, and site. Preoperative antibiotics and weight-based tranexamic acid was administered. We then prepped and draped the left lower extremity in the usual sterile fashion using chlorhexidine, alcohol, and DuraPrep. We then excised the majority of the old incision, but did not carry it down in its entirety distally. We dissected down sharply to the region of the IT band. Hemostasis was obtained using electrocautery. The subcutaneous layers were infiltrated with 10 mL of 0.25% Sensorcaine plain. The deep tissues were injected with a combination of 0.25% Marcaine with epinephrine, 30 mg of Toradol and 50 mcg of clonidine. 50 mL of this pericapsular mixture was used to inject the soft tissues throughout the case. Once we carried down our dissection down to the region of the IT band, we then incised the IT band in line with its fibers. There was significant scar and we created what we felt like was an adequate plane. We then extended our IT dissection proximally and distally to create two full-thickness flaps of IT band. We then began to dissect out posteriorly to try to attempt to find the sciatic nerve. There was significant posterior scar identified. We were able to dissect the scar to find fat, which was in the region of the sciatic nerve. I could palpate the sciatic nerve, but it was felt that dissecting out may cause more harm since it was quite deep within the posterior scar tissue. At that point once we identified the sciatic nerve, we placed a Charnley bow retractor. We then used a needle and syringe and aspirated the hip joint. We got about 5 mL of clear synovial fluid. This was sent to the lab for stat cell count, which returned at 1005 cells and 47% polys. At that point, we proceeded with a posterior approach of the hip. We created a posterior capsular flap off the back of the femur and extended this to a 45-degree angle posterior up onto the acetabulum. We created a large posterior flap and two #3 Vicryl sutures were placed to help tag it. An extensive synovectomy was performed and we debulked the posterior synovium. We then used the Albarado to elevate the tissues off the inferior aspect of the acetabulum. We placed a sharp cobra retractor over the anterior column of the acetabulum and then performed a synovectomy anteriorly, so we could actively mobilize the femur. Once we were done performing our synovectomy, we atraumatically dislocated the hip. A bone tamp and a mallet was used to remove the femoral head. We then used an osteotome and a mallet to break away the cement in the proximal portion of the spacer. Once we cleared out the shoulder of the spacer, we used the S-ROM stem extractor and backslapped the spacer out of the femur. It was easily removed and was noted to be loose. It was removed in its entirety with no residual cement left behind. A Charnley awl was then used to gain access to the femoral canal and a Lombard reverse curette was used to remove any membrane from within the femur. Our attention was then drawn to the acetabulum. We exposed the acetabulum and again could see the socket with this cement around it. We used an osteotome and a mallet to chip away the cement from around the poly and the poly was easily dislodged in the cement. We then chipped away the cement using an osteotome and a mallet in the acetabular gouges, so we could adequately expose the acetabulum. A Albarado was then used to clear any membrane from the acetabulum. Based on our prior explant, we used a 53-mm reamer and medialized. At that point, we used the 53-mm reamer and medialized once again and dropped our hand into the appropriate position using the patient's anatomy and the position of the old cup to guide us. We then got down to a bed of good bleeding bone. We then opened a 54-mm multihole cup and impacted it into place after irrigating the acetabulum with several liters of fluid. When the cup was impacted into place, we then placed multiple screws, first by drilling and measuring the appropriate length and placing screws through the screw holes. After several screws were placed, the acetabular socket was noted to be solid as we had multiple good bites with the screws. We copiously irrigated the wound once again. At that point, we placed a trial 36 x 54 plus 4 acetabular liner. Our attention was then drawn to the femur. With the leg internally rotated, we placed a femoral elevator under the proximal femur. We then used a 13-mm reamer to gain access into the femoral canal. We then used the clean out reamer to clean out the proximal portion of the femur. Again, the Onel reverse curettes were used to clear any membrane from within the femoral canal. At that point, we sequentially reamed the femur using the ReClaim tapered reamers up to a 17-mm reamer where we had good chatter and felt that this had adequate fill. We at that point removed the 17-mm reamer and copiously irrigated the femoral canal using a canal post acute care registered nurse. At that point, a 17 x 140-mm stem was opened and impacted into place and noted to seat at the same level of the reamer. We then placed a proximal pilot fuel engineer and prepared for the proximal body using the 20-mm proximal reamer. At that point, we placed the proximal trial in place initially trying an 85 proximal body, but we had difficulty reducing the hip. We then downsized to 75-mm proximal body and placed a 36 plus 1.5 head. The hip was atraumatically reduced and brought through a range of motion. We were able to flex the hip to 90 degrees, internally rotate to 60 degrees, and adduct to 10 degrees without instability. At that point, we atraumatically dislocated the hip. We removed the trials. We copiously irrigated once again. At that point, we placed a 20 x 75 proximal body in the same anteversion as our trial, which was approximately 20 degrees. We then impacted into place using the tensioning device and tensioned it until we broke the tensioner. At that point, we then placed a proximal locking bolt. We then trialed once again with 36 plus 1.5 head and we were happy with this. At that point, we removed the trial acetabular liner, copiously irrigated the wound once again and impacted a 36 x 54 plus 4 liner. We then impacted a 36 plus 1.5 metal head on the clean, dry, and Flores taper. The hip was atraumatically reduced once again and brought through range of motion and found to be stable. After irrigating the hip, we then used our #3 Vicryl in the posterior capsule through drill holes in the greater trochanter and repaired the posterior capsular structures. This was then reinforced with a #3 Vicryl. The IT band was then approximated using a #3 Vicryl and then oversewn with a Quill suture. We copiously irrigated the wound once again. The deep layers were closed with 0 Vicryl and superficial layers were closed with 2-0 Vicryl and the skin was closed with skin salome. Sterile Mepilex dressing was applied. All needle, sponge, and instrument counts were correct at the end of the procedure. I was present and scrubbed for the entirety of the procedure. Post-operative Plan: (avoid IV narcotics) 5-10 mg Oxycodone Q 4 hours po PRN 2 mg Dilaudid po for breakthrough pain q 3-4 hours?? PRN for breakthrough pain 15 mg Toradol iv or im q 6 hours (max 4 doses) 1000mg Tylenol po??? q8 hour 600 mg Neurontin po qhs for 2 days followed by 300 mg Neurontin po qhs for 4 weeks (for insomnia) Celebrex 200 mg po q 12 hours while in house with transition to Naprosyn 500mg bid at discharge Nexium 20mg qd x 2 weeks (or other PPI) Zofran 4 mg po/iv q 8 hours PRN nausea D/C Martínez catheter in AM POD#1 Perioperative prophylactic antibiotics for the next 24 hours Xrays in PACU Weight bearing status of operative extremity: Weight bearing as tolerated, Enhanced posterior hip precautions Wound closure: Salome to be removed in 14 days Dressing changes: Mepilex Silver (Do not change for 7 days then a dry sterile dressing) Follow-up Plan: As scheduled prior to surgery (approx. 5 weeks with x-rays) Anticoagulation: Coumadin 4 weeks Any possible barriers to discharge: Likely to require SNF Plan for hospital stay: Standard Anticipated Length of Stay: 2-3 days Implant Summary: Implant Name Type Inv. Item Serial No. Information Resources Manager Lot No. LRB No. Used Action SCREW,CACLS,PNNCL,6.5X25MM ([id number]) (AUTOREQ) - [id number] IMPLANTS [id number] [employer] - 3527 [id number] Left 1 Implanted CUP,HIP,ACETB,GRPTN,MLTHL,54MM ([id number]) (AUTOREQ) - [id number] IMPLANTS 4751 [employer] Loss Ass[employer]or - 3527 [id number] Left 1 Implanted SCREW,CACLS,PNNCL,6.5X25MM ([id number]) (AUTOREQ) - [id number] IMPLANTS 5385 [employer] Loss Ass[employer] - 3527 [id number] Left 1 Implanted SCREW,CACLS,PNNCL,6.5X25MM ([id number]) (AUTOREQ) - [id number] IMPLANTS 5385 [employer] Loss Ass[employer]or - 3527 [id number] Left 1 Implanted SCREW,CACLS,PNNCL,6.5X30MM ([id number]) (AUTOREQ) - [id number] IMPLANTS [id number] [employer] Loss Ass[employer]or - 3527 [id number] Left 1 Implanted SCREW,BN,PINN,CANCLS,6.5X8MM ([id number]) (AUTOREQ) - [id number] IMPLANTS [id number] [employer] - [id number] Left 1 Implanted SCREW,CACLS,PNNCL,6.5X15MM ([id number]) (AUTOREQ) - [id number] IMPLANTS 4723 [employer] Loss Ass[employer]or - 3527 [id number] Left 1 Implanted STEM,REC,DIST,TPR,[id number] ([id number]) (AUTOREQ) - [id number] IMPLANTS [id number] [employer] Loss [employer] - 3527 [id number] Left 1 Implanted INSER,ALTRX,NT,+4,[id number] ([id number]) (AUTOREQ) - [id number] IMPLANTS 5397 [employer] Loss Assessor - 3527 [id number] Left 1 Implanted CONE,BODY,RECLAIM,PRX,20X75 ([id number]) (AUTOREQ) - [id number] IMPLANTS [id number] [employer] Loss Ass[employer]or - 3527 [id number] Left 1 Implanted HEAD,ATC,MTL,+1.5MM,36MM ([id number]) (AUTOREQ) - [id number] IMPLANTS 6554 [employer] Loss Ass[employer]or - 3527 [id number] Left 1 Implanted Brief Op Note - Petar Arriola MD - 10/19/2014 4:06 PM EDT Brief Operative Note Patient Name: Marcia Palma : [id number] MR#: [id number] Case Date: 10/19/2014 Surgeon: Surgeon(s) and Role: * Petar Arriola MD - Primary * Ranulfo Coronado MD - Resident-Surgeon Costa Preoperative diagnosis: Reimplantation of MILTON after antibiotic spacer Postoperative diagnosis: Reimplantation of MILTON after antibiotic spacer Procedure(s): LEFT TOTAL HIP REVISION ARTHROPLASTY, COMPLETE MODIFIER RECLAIM DEPUY MODIFIER: PINNACLE GRIPTION TF ACETABULAR AUGMENTS MODIFIER PINNACLE ACETABULUM DEPUY Anesthesia: General Complications: none Fluids: 2500ml LR Estimated Blood Loss: 300 mL UOP: 450ml Drains: none Disposition: awakened from anesthesia, extubated and taken to the recovery room in a stable condition, having suffered no apparent untoward event. Condition: doing well without problems Attestation: Case Date: 10/19/2014 I was present and I participated during the entire procedure (does not need to include opening and closing). (Please see the Surgical Encounter Summary for any Implant and Specimen details pertinent to this patient.) Post-operative Plan: (avoid IV narcotics) ?? 5-10 mg Oxycodone Q 4 hours po PRN ?? 2 mg Dilaudid po for breakthrough pain q 3-4 hours?? PRN ?? for breakthrough pain 15 mg Toradol iv or im q 6 hours (max 4 doses) ?? 1000mg Tylenol po??? q8 hour ?? 600 mg Neurontin po qhs for 2 days followed by 300 mg Neurontin po qhs for 4 weeks (for insomnia) ?? Celebrex 200 mg po q 12 hours while in house with transition to Naprosyn 500mg bid at discharge ?? Nexium 20mg qd x 2 weeks (or other PPI) ?? Zofran 4 mg po/iv q 8 hours PRN nausea ?? D/C Martínez catheter in AM POD#1 ?? Perioperative prophylactic antibiotics for the next 24 hours ?? Xrays in PACU ?? Weight bearing status of operative extremity: Weight bearing as tolerated, Enhanced posterior hipprecautions ?? Wound closure: Salome to be removed in 14 days ?? Dressing changes: Mepilex Silver (Do not change for 7 days then a dry sterile dressing) ?? Follow-up Plan: As scheduled prior to surgery (approx. 5 weeks with x-rays) ?? Anticoagulation: Coumadin 4 weeks ?? Any possible barriers to discharge: Likely to require SNF ?? Plan for hospital stay: Standard ?? Anticipated Length of Stay: 2-3 days Implant Summary: Implant Name Type Inv. Item Serial No. Information Resources Manager Lot No. LRB No. Used Action SCREW,CACLS,PNNCL,6.5X25MM ([id number]) (AUTOREQ) - [id number] IMPLANTS 5385 [employer] Loss Assessor - 352 [id number] Left 1 Implanted CUP,HIP,ACETB,GRPTN,MLTHL,54MM ([id number]) (AUTOREQ) - [id number] IMPLANTS 4751 [employer] Loss Assessor - 352 [id number] Left 1 Implanted SCREW,CACLS,PNNCL,6.5X25MM ([id number]) (AUTOREQ) - [id number] IMPLANTS 5385 [employer] Loss Assessor - [facility] [id number] Left 1 Implanted SCREW,CACLS,PNNCL,6.5X25MM ([id number]) (AUTOREQ) - [id number] IMPLANTS 5385 [employer] Loss Assessor - [facility] [id number] Left 1 Implanted SCREW,CACLS,PNNCL,6.5X30MM ([id number]) (AUTOREQ) - [id number] IMPLANTS 5386 [employer] Loss Assessor - [facility] [id number] Left 1 Implanted SCREW,BN,PINN,CANCLS,6.5X8MM ([id number]) (AUTOREQ) - [id number] IMPLANTS [id number] [employer] Loss Assessor - [id number] Left 1 Implanted SCREW,CACLS,PNNCL,6.5X15MM ([id number]) (AUTOREQ) - [id number] IMPLANTS 4723 [employer] Loss Assessor - 352 [id number] Left 1 Implanted STEM,REC,DIST,TPR,[id number] ([id number]) (AUTOREQ) - [id number] IMPLANTS 56468 [employer] Loss Assessor - 3527 [id number] Left 1 Implanted INSER,ALTRX,NT,+4,[id number] ([id number]) (AUTOREQ) - [id number] IMPLANTS 5397 [employer] Loss Assessor - 352 [id number] Left 1 Implanted CONE,BODY,RECLAIM,PRX,20X75 ([id number]) (AUTOREQ) - [id number] IMPLANTS [id number] [employer] Loss Assessor - 3527 [id number] Left 1 Implanted HEAD,ATC,MTL,+1.5MM,36MM ([id number]) (AUTOREQ) - [id number] IMPLANTS 6554 [facility] Tech - 3527 [id number] Left 1 Implanted documented in this encounter Plan of Treatment Scheduled Referrals Name Type Priority Associated Diagnoses Order S chedule Referral for Outpatient Routine S/P left revision Ordered: Anticoagulation Referral total hip 10/22/2014 Monitoring arthroplasty 10/19/2014 (Dr. Arriola) documented as of this encounter Procedures Procedure Name Priority Date/Time Associated Diagnosis Comme nts IMPLANTABLE DEVICES 10/23/2014 12:00 SCAN AM EDT ECG SCAN 10/23/2014 12:00 AM EDT POCT GLUCOSE Routine 10/22/2014 11:50 Results for this AM EDT procedure are i n the results section. POCT GLUCOSE Routine 10/22/2014 7:09 Results for this AM EDT procedure are i n the results section. HEMOGRAM Routine 10/22/2014 3:54 Results for this AM EDT procedure are i n the results section. DIFFERENTIAL, Routine 10/22/2014 3:54 Results for this AUTOMATED AM EDT procedure are i n the results section. PROTHROMBIN TIME Routine 10/22/2014 3:54 Results for this AM EDT procedure are i n the results section. CBC (WITH DIFF) Routine 10/22/2014 3:54 AM EDT BASIC METABOLIC Routine 10/22/2014 3:54 Results f or this PANEL (NON-FASTING) AM EDT procedur e are in the results section. POCT GLUCOSE Routine 10/21/2014 10:09 Results for this PM EDT procedure are i n the results section. POCT GLUCOSE Routine 10/21/2014 4:54 Results for this PM EDT procedure are i n the results section. POCT GLUCOSE Routine 10/21/2014 11:29 Results for this AM EDT procedure are i n the results section. POCT GLUCOSE Routine 10/21/2014 6:35 Results for this AM EDT procedure are i n the results section. HEMOGRAM Routine 10/21/2014 4:27 Results for this AM EDT procedure are i n the results section. DIFFERENTIAL, Routine 10/21/2014 4:27 Results for this AUTOMATED AM EDT procedure are i n the results section. PROTHROMBIN TIME Routine 10/21/2014 4:27 Results for this AM EDT procedure are i n the results section. CBC (WITH DIFF) Routine 10/21/2014 4:27 AM EDT BASIC METABOLIC Routine 10/21/2014 4:27 Results f or this PANEL (NON-FASTING) AM EDT procedur e are in the results section. POCT GLUCOSE Routine 10/20/2014 9:02 Results for this PM EDT procedure are i n the results section. POCT GLUCOSE Routine 10/20/2014 5:11 Results for this PM EDT procedure are i n the results section. POCT GLUCOSE Routine 10/20/2014 11:32 Results for this AM EDT procedure are i n the results section. POCT GLUCOSE Routine 10/20/2014 6:44 Results for this AM EDT procedure are i n the results section. HEMOGRAM Routine 10/20/2014 3:35 Results for this AM EDT procedure are i n the results section. DIFFERENTIAL, Routine 10/20/2014 3:35 Results for this AUTOMATED AM EDT procedure are i n the results section. PROTHROMBIN TIME Routine 10/20/2014 3:35 Results for this AM EDT procedure are i n the results section. CBC (WITH DIFF) Routine 10/20/2014 3:35 AM EDT BASIC METABOLIC Routine 10/20/2014 3:35 Results f or this PANEL (NON-FASTING) AM EDT procedur e are in the results section. POCT GLUCOSE Routine 10/19/2014 9:03 Results for this PM EDT procedure are i n the results section. PROTHROMBIN TIME Routine 10/19/2014 8:00 Results for this PM EDT procedure are i n the results section. XR PELVIS Routine 10/19/2014 4:56 Results for this PM EDT procedure are i n the results section. POCT GLUCOSE Routine 10/19/2014 4:25 Results for this PM EDT procedure are i n the results section. CELL COUNT BODY STAT 10/19/2014 2:25 Results f or this FLUID PM EDT procedure are i n the results section. MODIFIER PINNACLE 10/19/2014 1:34 Reimplantation of TH A ACETABULUM DEPUY PM EDT after antibiotic spacer MODIFIER: PINNACLE 10/19/2014 1:34 Reimplantation of T HUNTER GRIPTION TF PM EDT after antibiotic ACETABULAR AUGMENTS spacer MODIFIER RECLAIM 10/19/2014 1:34 Reimplantation of MILTON DEPUY PM EDT after antibiotic spacer @TOTAL HIP REVISION 10/19/2014 1:34 Reimplantation of MILTON ARTHROPLASTY, PM EDT after antibiotic COMPLETE (WRVU spacer 30.28) POCT GLUCOSE Routine 10/19/2014 11:45 Results for this AM EDT procedure are i n the results section. documented in this encounter Results SCAN DOC: IMPLANTABLE DEVICES (10/23/2014 12:00 AM EDT) Narrative This result has an attachment that is no t available. Scanning Provider MEDIA MGR SCAN EXT ORDR/RSLT SCAN DOC: ECG (10/23/2014 12:00 AM EDT) Narrative This result has an attachment that is no t available. Scanning Provider MEDIA MGR SCAN EXT ORDR/RSLT POCT Glucose (10/22/2014 11:50 AM EDT) athologist Signature POC Glucose 99 65 - 199 CERNER mg/dL MILLENNIUM Comment: Supplemental ranges: <140 mg/dL before meals <180 mg/dL all other times of the day Specimen Anatomical Collection Method Collection Time Receive d Time (Source) Location / / Volume Laterality Blood specimen 10/22/2014 11:50 5 (specimen) AM EDT 11:50 AM EDT Petar Arriola MD POINT OF CARE TEST ORDERABLE S Performing Organization Address City/[facility]/ZIP Code Phon e Number [address] CERNER MILLENNIUM POCT Glucose (10/22/2014 7:09 AM EDT) athologist Signature POC Glucose 107 65 - 199 CERNER mg/dL MILLENNIUM Comment: Supplemental ranges: <140 mg/dL before meals <180 mg/dL all other times of the day Specimen Anatomical Collection Method Collection Time Receive d Time (Source) Location / / Volume Laterality Blood specimen 10/22/2014 7:09 AM 015 7:09 (specimen) EDT AM EDT Petar Arriola MD POINT OF CARE TEST ORDERABLE S Performing Organization Address City/[facility]/[place] [address] CERNER MILLENNIUM Differential, Automated (10/22/2014 3:54 AM EDT) P athologist Signature Neutrophils % 58.0 % CERNER MILLENNIUM Neutr Abs (ANC) 4.35 1.50 - CERNER 6.30 MILLENNIUM x10(3)/mcL Lymphocytes % 26.7 % CERNER MILLENNIUM Lymphocytes Abs 2.0 1.0 - 3.6 CERNER x10(3)/mcL MILLENNIUM Monocytes % 10.1 % CERNER MILLENNIUM Monocyte Abs 0.8 0.2 - 1.0 CERNER x10(3)/mcL MILLENNIUM Eosinophils % 4.4 % CERNER MILLENNIUM Eosinophils Abs 0.3 0.0 - 0.5 CERNER x10(3)/mcL MILLENNIUM Basophils % 0.5 % CERNER MILLENNIUM Basophils Abs 0.0 0.0 [...] Location / / Volume Laterality Blood specimen 10/22/2014 3:54 AM 015 4:05 (specimen) EDT AM EDT Resulting Agency Comment Spec In Lab Petar Arriola MD HEMATOLOGY ORDERABLES Performing Organization Address City/State/ZIP Code Phon e Number [place] [id number] CERNER MILLENNIUM (ABNORMAL) Hemogram (10/22/2014 3:54 AM EDT) P athologist Signature WBC 7.5 4.0 - 10.0 CERNER x10(3)/mcL MILLENNIUM RBC 2.86 (L) 3.93 - CERNER 5.22 MILLENNIUM x10(6)/mcL Hemoglobin 8.6 (L) 11.2 - CERNER 15.7 gm/dL MILLENNIUM Hematocrit 26.6 (L) 34.0 - CERNER 45.0 % MILLENNIUM MCV 93.0 79.0 - CERNER 94.0 fL MILLENNIUM MCH 30.1 26.6 - CERNER 32.2 pg MILLENNIUM MCHC 32.3 32.0 - CERNER 36.5 gm/dL MILLENNIUM Platelets 198 145 - 370 CERNER x10(3)/mcL MILLENNIUM RDWSD 56.1 (H) 35.0 - CERNER 46.0 fL MILLENNIUM RDWCV 16.8 (H) 10.9 - CERNER 14.4 % MILLENNIUM MPV 10.0 9.0 - 12.0 CERNER fL MILLENNIUM Specimen Anatomical Collection Method Collection Time Receive d Time (Source) Location / / Volume Laterality Blood specimen 10/22/2014 3:54 AM 015 4:05 (specimen) EDT AM EDT Resulting Agency Comment Spec In Lab Petar Arriola MD HEMATOLOGY ORDERABLES Performing Organization Address City/[facility] [place] [address] [facility] ([facility] Prothrombin Time (10/22/2014 3:54 AM EDT) athologist Signature PT 23.9 (H) 12.0 - 15.0 CERNER sec MILLENNIUM Comment: Transfusion Committee Guidelines: INR less than 2.0, PTT less than OR equal to 43.5 seconds, or Fibrinogen greater t pompa or equal to 100 mg/dl indicate adequate procoagulant activity for hemos tasis in patients without underlying bleeding disorders. INR 2.1 (H) 0.9 - 1.1 [facility] Specimen Anatomical Collection Method Collection Time Receive d Time (Source) Location / / Volume Laterality Blood specimen 10/22/2014 3:54 AM 015 4:05 (specimen) EDT AM EDT Resulting Agency Comment Spec In Lab Petar Arriola MD HEMATOLOGY ORDERABLES Performing Organization Address City/[facility]/[place] [address] [facility] MILLENNIUM (ABNORMAL) Basic Metabolic Panel (non-fasting) (10/22/2014 3:54 AM EDT) athologist Signature Glucose Lvl 129 65 - 199 CERNER mg/dL MILLENNIUM Comment: Diabetes: >=200 mg/dL plus symp toms BUN 21 (H) 8 - 18 mg/dL CERNER MILLENNIUM Creatinine 0.87 0.70 - 1.20 mg/dL CERNER MILL ENNIUM Comment: Please note that the pediatric reference intervals supplied above were not validated at [facility] Results from pediatri c patients should be interpreted in conjunction to the patient's age, height and muscle mass. Sodium 137 135 - 145 mmol/L CERNER HONG NIUM Potassium 4.4 3.5 - 5.0 mmol/L CERNER HONG NIUM Comment: Please note: ??Patients with WBC >100,00 0 may have falsely elevated Potassium levels. ??For accurate Potassium quantif ication in these patients send serum separator tube (gold top) for subsequent determinations. ??Contact the Clinical Chemistry Laboratory if there are any qu estions. Chloride 105 98 - 107 mmol/L CERNER MILLENN IUM CO2 24 22 - 31 mmol/L CERNER MILLENNI UM Anion Gap 8 5 - 15 mmol/L CERNER MILLENNIU M Calcium 8.2 (L) 8.5 - 10.5 mg/dL CERNER HONG NIUM Estimated GFR >60 >=60 CERNER MILLENNIU M Comment: This estimated GFR (eGFR) value was [...] the following links into your internet browser. [email or web address] [email or web address] Specimen Anatomical Collection Method Collection Time Receive d Time (Source) Location / / Volume Laterality Blood specimen 10/22/2014 3:54 AM 015 4:05 (specimen) EDT AM EDT Resulting Agency Comment Spec In Lab Petar Arriola MD CHEMISTRY ORDERABLES Performing Organization Address City/State/ZIP Code Phon e Number [address] CERNER MILLENNIUM POCT Glucose (10/21/2014 10:09 PM EDT) athologist Signature POC Glucose 145 65 - 199 CERNER mg/dL MILLENNIUM Comment: Supplemental ranges: <140 mg/dL before meals <180 mg/dL all other times of the day Specimen Anatomical Collection Method Collection Time Receive d Time (Source) Location / / Volume Laterality Blood specimen 10/21/2014 10:09 5 (specimen) PM EDT 10:09 PM EDT Petar Arriola MD POINT OF CARE TEST ORDERABLE S Performing Organization Address City/[facility]/ZIP Code Phon e Number [address] CERNER MILLENNIUM POCT Glucose (10/21/2014 4:54 PM EDT) athologist Signature POC Glucose 130 65 - 199 CERNER mg/dL MILLENNIUM Comment: Supplemental ranges: <140 mg/dL before meals <180 mg/dL all other times of the day Specimen Anatomical Collection Method Collection Time Receive d Time (Source) Location / / Volume Laterality Blood specimen 10/21/2014 4:54 PM 015 4:54 (specimen) EDT PM EDT Petar Arriola MD POINT OF CARE TEST ORDERABLE S Performing Organization Address City/State/ZIP Code Phon e Number [address] CERNER MILLENNIUM POCT Glucose (10/21/2014 11:29 AM EDT) athologist Signature POC Glucose 115 65 - 199 CERNER mg/dL MILLENNIUM Comment: Supplemental ranges: <140 mg/dL before meals <180 mg/dL all other times of the day Specimen Anatomical Collection Method Collection Time Receive d Time (Source) Location / / Volume Laterality Blood specimen 10/21/2014 11:29 5 (specimen) AM EDT 11:29 AM EDT Petar Arriola MD POINT OF CARE TEST ORDERABLE S Performing Organization Address City/State/ZIP Code Phon e Number [address] CERNER MILLENNIUM POCT Glucose (10/21/2014 6:35 AM EDT) athologist Signature POC Glucose 137 65 - 199 CERNER mg/dL MILLENNIUM Comment: Supplemental ranges: <140 mg/dL before meals <180 mg/dL all other times of the day Specimen Anatomical Collection Method Collection Time Receive d Time (Source) Location / / Volume Laterality Blood specimen 10/21/2014 6:35 AM 015 6:35 (specimen) EDT AM EDT Petar Arriola MD POINT OF CARE TEST ORDERABLE S Performing Organization Address City/[facility]/ZIP Code Phon e Number [address] CERNER MILLENNIUM Differential, Automated (10/21/2014 4:27 AM EDT) athologist Signature Neutrophils % 58.6 % CERNER MILLENNIUM Neutr Abs (ANC) 4.94 1.50 - CERNER 6.30 MILLENNIUM x10(3)/mcL Lymphocytes % 27.6 % CERNER MILLENNIUM Lymphocytes Abs 2.3 1.0 - 3.6 CERNER x10(3)/mcL MILLENNIUM Monocytes % 11.1 % CERNER MILLENNIUM Monocyte Abs 0.9 0.2 - 1.0 CERNER x10(3)/mcL MILLENNIUM Eosinophils % 2.4 % CERNER MILLENNIUM Eosinophils Abs 0.2 0.0 - 0.5 CERNER x10(3)/mcL MILLENNIUM Basophils % 0.1 % CERNER MILLENNIUM Basophils Abs 0.0 0.0 - 0.2 CERNER x10(3)/mcL MILLENNIUM Immature Gran % 0.20 % CERNER MILLENNIUM Comment: Immature granulocytes(IG's)percentage an [...] Location / / Volume Laterality Blood specimen 10/21/2014 4:27 AM 015 4:57 (specimen) EDT AM EDT Resulting Agency Comment Spec In Lab Petar Arriola MD HEMATOLOGY ORDERABLES Performing Organization Address City/State/[place] [address] CERNER MILLENNIUM (ABNORMAL) Hemogram (10/21/2014 4:27 AM EDT) athologist Signature WBC 8.4 4.0 - 10.0 CERNER x10(3)/mcL MILLENNIUM RBC 2.91 (L) 3.93 - CERNER 5.22 MILLENNIUM x10(6)/mcL Hemoglobin 8.5 (L) 11.2 - CERNER 15.7 gm/dL MILLENNIUM Comment: Called by: [facility], Read back by: JANNETH BELTRAN, Date-Time: 10-21-14 05:17. NURSE SAID OK TO ENTER. Hematocrit 26.9 (L) 34.0 - 45.0 % CERNER MILLENNI UM MCV 92.4 79.0 - 94.0 fL CERNER MILLENNI UM MCH 29.2 26.6 - 32.2 pg CERNER MILLENNI UM MCHC 31.6 (L) 32.0 - 36.5 gm/dL CERNER MILLE NNIUM Platelets 198 145 - 370 x10(3)/mcL CERNER GA LLENNIUM RDWSD 54.1 (H) 35.0 - 46.0 fL CERNER MILLENNI UM RDWCV 16.1 (H) 10.9 - 14.4 % CERNER MILLENNIU M MPV 10.1 9.0 - 12.0 fL CERNER MILLENNIU M Specimen Anatomical Collection Method Collection Time Receive d Time (Source) Location / / Volume Laterality Blood specimen 10/21/2014 4:27 AM 015 4:57 (specimen) EDT AM EDT Resulting Agency Comment Spec In Lab Petar Arriola MD HEMATOLOGY ORDERABLES Performing Organization Address [facility] Phon e Number [address] CERNER MILLENNIUM (ABNORMAL) Prothrombin Time (10/21/2014 4:27 AM EDT) athologist Signature PT 19.1 (H) 12.0 - 15.0 CERNER sec MILLENNIUM Comment: Transfusion Committee Guidelines: INR less than 2.0, PTT less than OR equal to 43.5 seconds, or Fibrinogen greater t pompa or equal to 100 mg/dl indicate adequate procoagulant activity for hemos tasis in patients without underlying bleeding disorders. INR 1.6 (H) 0.9 - 1.1 CERNER MILLENNIUM Specimen Anatomical Collection Method Collection Time Receive d Time (Source) Location / / Volume Laterality Blood specimen 10/21/2014 4:27 AM 015 4:57 (specimen) EDT AM EDT Resulting Agency Comment Spec In Lab Petar Arriola MD HEMATOLOGY ORDERABLES Performing Organization Address [facility] Phon e Number [address] [facility] HERBIEENNIUM (ABNORMAL) Basic Metabolic Panel (non-fasting) (10/21/2014 4:27 AM EDT) P athologist Signature Glucose Lvl 138 65 - 199 CERNER mg/dL MILLENNIUM Comment: Diabetes: >=200 mg/dL plus symp toms BUN 22 (H) 8 - 18 mg/dL CERNER MILLENNIUM Creatinine 0.81 0.70 - 1.20 mg/dL CERNER MILL ENNIUM Comment: Please note that the pediatric reference intervals supplied above were not validated at [facility] Results from pediatri c patients should be interpreted in conjunction to the patient's age, height and muscle mass. Sodium 134 (L) 135 - 145 mmol/L CERNER HONG NIUM Potassium 3.9 3.5 - 5.0 mmol/L CERNER HONG NIUM Comment: result rechecked-RF Please note: ??Patients with WBC >100,00 0 may have falsely elevated Potassium levels. ??For accurate Potassium quantif ication in these patients send serum separator tube (gold top) for subsequent determinations. ??Contact the Clinical Chemistry Laboratory if there are any qu estions. Chloride 101 98 - 107 mmol/L CERNER MILLENN IUM CO2 22 22 - 31 mmol/L CERNER MILLENNI UM Anion Gap 11 5 - 15 mmol/L CERNER MILLENNIU M Calcium 8.1 (L) 8.5 - 10.5 mg/dL CERNER HONG NIUM Estimated GFR >60 >=60 CERNER MILLENNIU M Comment: This estimated GFR (eGFR) value was [...] the following links into your internet browser. [email or web address] [email or web address] Specimen Anatomical Collection Method Collection Time Receive d Time (Source) Location / / Volume Laterality Blood specimen 10/21/2014 4:27 AM 015 4:57 (specimen) EDT AM EDT Resulting Agency Comment Spec In Lab Petar Arriola MD CHEMISTRY ORDERABLES Performing Organization Address City/[facility]/[place] [address] CERNER MILLENNIUM POCT Glucose (10/20/2014 9:02 PM EDT) athologist Signature POC Glucose 155 65 - 199 CERNER mg/dL MILLENNIUM Comment: Supplemental ranges: <140 mg/dL before meals <180 mg/dL all other times of the day Specimen Anatomical Collection Method Collection Time Receive d Time (Source) Location / / Volume Laterality Blood specimen 10/20/2014 9:02 PM 015 9:02 (specimen) EDT PM EDT Petar Arriola MD POINT OF CARE TEST ORDERABLE S Performing Organization Address City/[facility]/ZIP Code [place] [address] CERNER MILLENNIUM POCT Glucose (10/20/2014 5:11 PM EDT) P athologist Signature POC Glucose 162 65 - 199 CERNER mg/dL MILLENNIUM Comment: Supplemental ranges: <140 mg/dL before meals <180 mg/dL all other times of the day Specimen Anatomical Collection Method Collection Time Receive d Time (Source) Location / / Volume Laterality Blood specimen 10/20/2014 5:11 PM 015 5:11 (specimen) EDT PM EDT Petar Arriola MD POINT OF CARE TEST ORDERABLE S Performing Organization Address City/State/ZIP Code Phon e Number [address] CERNER MILLENNIUM POCT Glucose (10/20/2014 11:32 AM EDT) athologist Signature POC Glucose 138 65 - 199 CERNER mg/dL MILLENNIUM Comment: Supplemental ranges: <140 mg/dL before meals <180 mg/dL all other times of the day Specimen Anatomical Collection Method Collection Time Receive d Time (Source) Location / / Volume Laterality Blood specimen 10/20/2014 11:32 5 (specimen) AM EDT 11:32 AM EDT Petar Arriola MD POINT OF CARE TEST ORDERABLE S Performing Organization Address City/State/ZIP Code Phon e Number [address] CERNER MILLENNIUM POCT Glucose (10/20/2014 6:44 AM EDT) P athologist Signature POC Glucose 136 65 - 199 CERNER mg/dL MILLENNIUM Comment: Supplemental ranges: <140 mg/dL before meals <180 mg/dL all other times of the day Specimen Anatomical Collection Method Collection Time Receive d Time (Source) Location / / Volume Laterality Blood specimen 10/20/2014 6:44 AM 015 6:44 (specimen) EDT AM EDT Petar Arriola MD POINT OF CARE TEST ORDERABLE S Performing Organization Address City/State/ZIP Code Phon e Number [place] [address] CERNER MILLENNIUM (ABNORMAL) Differential, Automated (10/20/2014 3:35 AM EDT) Patholo gist Method Time Signature Neutrophils % 84.7 % CERNER MILLENNIUM Neutr Abs (ANC) 10.61 (H) 1.50 - CERNER 6.30 MILLENNIUM x10(3)/mc L Lymphocytes % 7.8 % CERNER MILLENNIUM Lymphocytes Abs 1.0 1.0 - 3.6 CERNER x10(3)/mc MILLENNIUM L Monocytes % 7.3 % CERNER MILLENNIUM Monocyte Abs 0.9 0.2 - 1.0 CERNER x10(3)/mc MILLENNIUM L Eosinophils % 0.0 % CERNER MILLENNIUM Eosinophils Abs 0.0 0.0 - 0.5 CERNER x10(3)/mc MILLENNIUM L Basophils % 0.0 % CERNER MILLENNIUM Basophils Abs 0.0 0.0 - 0.2 CERNER x10(3)/mc MILLENNIUM L Immature Gran % 0.20 % CERNER MILLENNIUM Comment: Immature granulocytes(IG's)percentage an d absolute count will include metamyelocytes, myelocytes, and promyelo cytes. Blood smears from CBCs yielding IG's will be scanned manually for concor dance. If this scan disagrees with the automated IG or if promyelocytes are not ed, a manual differential will be performed. Peggy Gran Abs 0.03 0.00 - 0.05 x10(3)/mcL CER NER MILLENNIUM Specimen Anatomical Collection Method Collection Time Receive d Time (Source) Location / / Volume Laterality Blood specimen 10/20/2014 3:35 AM 015 4:18 (specimen) EDT AM EDT Resulting Agency Comment Spec In Lab Petar Arriola MD HEMATOLOGY ORDERABLES Performing Organization Address City/State/ZIP Code Phon e Number [address] CERNER MILLENNIUM (ABNORMAL) Hemogram (10/20/2014 3:35 AM EDT) P athologist Signature WBC 12.5 (H) 4.0 - 10.0 CERNER x10(3)/mcL MILLENNIUM RBC 3.56 (L) 3.93 - CERNER 5.22 MILLENNIUM x10(6)/mcL Hemoglobin 10.6 (L) 11.2 - CERNER 15.7 gm/dL MILLENNIUM Hematocrit 32.6 (L) 34.0 - CERNER 45.0 % MILLENNIUM MCV 91.6 79.0 - CERNER 94.0 fL MILLENNIUM MCH 29.8 26.6 - CERNER 32.2 pg MILLENNIUM MCHC 32.5 32.0 - CERNER 36.5 gm/dL MILLENNIUM Platelets 242 145 - 370 CERNER x10(3)/mcL MILLENNIUM RDWSD 54.2 (H) 35.0 - CERNER 46.0 fL MILLENNIUM RDWCV 16.3 (H) 10.9 - CERNER 14.4 % MILLENNIUM MPV 10.0 9.0 - 12.0 CERNER fL MILLENNIUM Specimen Anatomical Collection Method Collection Time Receive d Time (Source) Location / / Volume Laterality Blood specimen 10/20/2014 3:35 AM 015 4:18 (specimen) EDT AM EDT Resulting Agency Comment Spec In Lab Petar Arriola MD HEMATOLOGY ORDERABLES Performing Organization Address City/State/ZIP [place] [address] CERNER MILLENNIUM Prothrombin Time (10/20/2014 3:35 AM EDT) P athologist Signature PT 14.1 12.0 - 15.0 CERNER sec MILLENNIUM Comment: Transfusion Committee Guidelines: INR less than 2.0, PTT less than OR equal to 43.5 seconds, or Fibrinogen greater t pompa or equal to 100 mg/dl indicate adequate procoagulant activity for hemos tasis in patients without underlying bleeding disorders. INR 1.1 0.9 - 1.1 [facility] MILLENNIUM Specimen Anatomical Collection Method Collection Time Receive d Time (Source) Location / / Volume Laterality Blood specimen 10/20/2014 3:35 AM 015 4:18 (specimen) EDT AM EDT Resulting Agency Comment Spec In Lab Petar Arriola MD HEMATOLOGY ORDERABLES Performing Organization Address City/State/[place] [address] CERNER MILLENNIUM (ABNORMAL) Basic Metabolic Panel (non-fasting) (10/20/2014 3:35 AM EDT) P athologist Signature Glucose Lvl 148 65 - 199 CERNER mg/dL MILLENNIUM Comment: Diabetes: >=200 mg/dL plus symp toms BUN 21 (H) 8 - 18 mg/dL CERNER MILLENNIUM Creatinine 0.74 0.70 - 1.20 mg/dL CERNER MILL ENNIUM Comment: Please note that the pediatric reference intervals supplied above were not validated at [facility]. Results from pediatri c patients should be interpreted in conjunction to the patient's age, height and muscle mass. Sodium 139 135 - 145 mmol/L CERNER HONG NIUM Potassium 5.0 3.5 - 5.0 mmol/L CERNER HONG NIUM Comment: Please note: ??Patients with WBC >100,00 0 may have falsely elevated Potassium levels. ??For accurate Potassium quantif ication in these patients send serum separator tube (gold top) for subsequent determinations. ??Contact the Clinical Chemistry Laboratory if there are any qu estions. Chloride 102 98 - 107 mmol/L CERNER MILLENN IUM CO2 21 (L) 22 - 31 mmol/L CERNER MILLENNI UM Anion Gap 16 (H) 5 - 15 mmol/L CERNER MILLENNIU M Calcium 8.3 (L) 8.5 - 10.5 mg/dL CERNER HONG NIUM Estimated GFR >60 >=60 CERNER MILLENNIU M Comment: This estimated GFR (eGFR) value was [...] the following links into your internet browser. [email or web address] [email or web address] Specimen Anatomical Collection Method Collection Time Receive d Time (Source) Location / / Volume Laterality Blood specimen 10/20/2014 3:35 AM 015 4:18 (specimen) EDT AM EDT Resulting Agency Comment Spec In Lab Petar Arriola MD CHEMISTRY ORDERABLES Performing Organization Address [facility]/ZIP [facility] [place] [address] CERNER MILLENNIUM POCT Glucose (10/19/2014 9:03 PM EDT) athologist Signature POC Glucose 161 65 - 199 CERNER mg/dL [facility] Comment: Supplemental ranges: <140 mg/dL before meals <180 mg/dL all other times of the day Specimen Anatomical Collection Method Collection Time Receive d Time (Source) Location / / Volume Laterality Blood specimen 10/19/2014 9:03 PM 015 9:03 (specimen) EDT PM EDT Petar Arriola MD POINT OF CARE TEST ORDERABLE S Performing Organization Address [facility] Phon e Number [address] CERNER MILLENNIUM Prothrombin Time (10/19/2014 8:00 PM EDT) athologist Signature PT 14.4 12.0 - 15.0 CERNER sec MILLENNIUM Comment: Transfusion Committee Guidelines: INR less than 2.0, PTT less than OR equal to 43.5 seconds, or Fibrinogen greater t pompa or equal to 100 mg/dl indicate adequate procoagulant activity for hemos tasis in patients without underlying bleeding disorders. INR 1.1 0.9 - 1.1 [facility] VuzitENNIUM Specimen Anatomical Collection Method Collection Time Receive d Time (Source) Location / / Volume Laterality Blood specimen 10/19/2014 8:00 PM 015 8:21 (specimen) EDT PM EDT Resulting Agency Comment Spec In Lab Petar Arriola MD HEMATOLOGY ORDERABLES Performing Organization Address City/[facility] [place] [address] CERNER MILLENNIUM XR pelvis 1 or 2 views (10/19/2014 4:56 PM EDT) Anatomical Region Laterality Modality Pelvis N/A Radiographic Imaging Specimen (Source) Anatomical Collection Method Collection Time Re ceived Time Location / / Volume Laterality 10/19/2014 4:56 PM EDT Impressions 10/19/2014 5:07 PM EDT IMPRESSION: Status post left total hip arthroplasty. Portable view just covers the distal aspect of the left femoral shaft compone nt. No peripheral lucency to suggest complication. No displaced fracture. Narrative 10/19/2014 5:07 PM EDT EXAMINATION: PELVIS 1 OR 2 VIEWS/XPORT CLINICAL HISTORY: Other pertinent inform ation: S/p Total Hip Arthroplasty evaluate for fracture and alignment TECHNIQUE: AP portable in the PACU. COMPARISON: 10/04/2014. FINDINGS: There is been interval placement of the left noncemented total hip arthroplasty with acetabular and femoral shaft compon ent well positioned. Postoperative changes with gas within the soft tissues present. Stable appearance to the right total hip arthroplasty. No acute complic ations. Procedure Note Maria Esther Richardson MD - 10/19/2014Forma tting of this note might be different from the original. EXAMINATION: PELVIS 1 OR 2 VIEWS/XPORT CLINICAL HISTORY: Other pertinent inform ation: S/p Total Hip Arthroplasty evaluate for fracture and alignment TECHNIQUE: AP portable in the PACU. COMPARISON: 10/04/2014. FINDINGS: There is been interval placement of the left noncemented total hip arthroplasty with acetabular and femoral shaft compon ent well positioned. Postoperative changes with gas within the soft tissues present. Stable appearance to the right total hip arthroplasty. No acute complic ations. IMPRESSION IMPRESSION: Status post left total hip arthroplasty. Portable view just covers the distal aspect of the left femoral shaft compone nt. No peripheral lucency to suggest complication. No displaced fracture. Petar Arriola MD IMG DX ORDERABLES POCT Glucose (10/19/2014 4:25 PM EDT) P athologist Signature POC Glucose 128 65 - 199 CERNER mg/dL MILLENNIUM Comment: Supplemental ranges: <140 mg/dL before meals <180 mg/dL all other times of the day Specimen Anatomical Collection Method Collection Time Receive d Time (Source) Location / / Volume Laterality Blood specimen 10/19/2014 4:25 PM 015 4:25 (specimen) EDT PM EDT Petar Arriola MD POINT OF CARE TEST ORDERABLE S Performing Organization Address City/State/ZIP Code [place] [address] CERNER MILLENNIUM Cell Count Body Fluid Hip, Left (10/19/2014 2:25 PM EDT) Patholo gist Method Time Signature Spec Type BF Hip, Left CERNER MILLENNIUM Color BF Shaw CERNER MILLENNIUM Appearance BF Slightly CERNER Cloudy MILLENNIUM Nucl Cell BF 1,005 /mcl CERNER Ct MILLENNIUM Comment: Counts may be inaccurate due to presence of debris and cellular clumps If Nucleated Cell Count equals zero, No Scan or Differential is performed. If Nucleated Cell Count equals 1-5, Smea r is scanned but no results are reported unless abnormalities are seen. If Nucleated Cell Count equals [address], Differential is reported. Nucleated Cell Count results are correla kamini with body fluid type and clinical condition. Neut Absolute BF 472 /mcl CERNER HONG NIUM Comment: Results may be inaccurate due t o presence of many degenerated cells. Neutrophil BF 47 % CERNER MILLENNIU M Lymphocyte BF 32 % CERNER MILLENNIU M Macrophage BF 19 % CERNER MILLENNIU M Comment: Rare WBC phagocytosis seen Synovial BF 1 % CERNER MILLENNIUM Plasma Cell BF 1 % CERNER MILLENNI UM Tot Diff Ct BF 200 Cells CERNER MILLENNI UM Specimen Anatomical Collection Method Collection Time Receive d Time (Source) Location / / Volume Laterality Swab from hip 10/19/2014 2:25 PM 10/20/19 15 2:30 region EDT PM EDT (specimen) Resulting Agency Comment Spec In Lab Petar Arriola MD BODY FLUIDS AND STOOLS ORDER TERESA Performing Organization Address City/State/ZIP Code Phon e Number [place] [address] CERNER MILLENNIUM POCT Glucose (10/19/2014 11:45 AM EDT) P athologist Signature POC Glucose 106 65 - 199 CERNER mg/dL MILLENNIUM Comment: Supplemental ranges: <140 mg/dL before meals <180 mg/dL all other times of the day Specimen Anatomical Collection Method Collection Time Receive d Time (Source) Location / / Volume Laterality Blood specimen 10/19/2014 11:45 5 (specimen) AM EDT 11:45 AM EDT Petar Arriola MD POINT OF CARE TEST ORDERABLE S Performing Organization Address City/State/ZIP Code [place] [address] [facility] documented in this encounter Visit Diagnoses Not on filedocumented in this encounter Administered Medications Inactive Administered Medications - up to 3 most recent administrations Medication Order MAR Action Action Date Dose Rate Site bacitracin injection Given 10/19/2014 3:27 PM EDT 50,000 Units ONCE PRN, Starting on Sat10/19/14 at 1527, Until Sat10/19/14 at 1642, Intra-Operative (Intra-Procedure), Routine BUpivacaine (PF) (MARCAINE) Given 10/19/2014 2:10 PM EDT 25 mg 19- Surgical Site 0.25 % (2.5 mg/mL) injection ONCE PRN, Starting on Sat10/19/14 at 1410, Until Sat10/19/14 at 1642, Intra-Operative (Intra-Procedure), Routine BUpivacaine-EPINEPHrine 0.25 Given 10/19/2014 3:36 PM 50 mLs 19- Surgical Site %-1:200,000 injection EDT ONCE PRN, Starting on Sat10/19/14 at 1536, Until Sat10/19/14 at 1642, Intra-Operative (Intra-Procedure), Routine cloNIDine injection Given 10/19/2014 3:38 PM EDT 50 mcg 19- S urgical Site ONCE PRN, Starting on Sat10/19/14 at 1538, Until Sat10/19/14 at 1642, Intra-Operative (Intra-Procedure), Routine ketorolac (TORADOL) injection Given 10/19/2014 3:39 PM EDT 30 mg 19- S urgical Site ONCE PRN, Starting on Sat10/19/14 at 1539, Until Sat10/19/14 at 1642, Intra-Operative (Intra-Procedure), Routine documented in this encounter Active and Recently Administered Medications Times are shown in EDT. Scheduled Medication Order 10/20/2014 10/21/201410/2210/22/2014 acetaminophen (TYLENOL) tablet 1,000 mg 0642 (Given - Provider: Roxanne Beltran RN)1332 (Given - Provider: Stefania Lux RN)2031 (Given - Provider: Roxanne Beltran RN) 0701 (Given - Provider: Luis Patel N)153 (Given - Provider: Scarlett Brian, ALINA)2034 (Given - Provider: Roxanne Beltran RN) 0640 (Given - Provider: Roxanne Beltran RN) 1,000 mg, Oral, EVERY 8 HOURS SCHEDULED, First dose on Sat10/19/14 at 1700, Until Discontinued, Maximum dose of acetaminophen is 4000 mg from all sources in 24 hours., Routine ceFAZolin (ANCEF) 1g in dextrose 5% 50mL (COMPLETED) 0 025 (Given - Provider: Roxanne Beltran RN)0826 (Given - Provider: Stefania Lux RN) 1,000 mg (1 g), Intravenous, EVERY 8 MEENAKSHI RS, 3 doses, First dose on Sat10/19/14 at 1700, Last dose on Sat10/20/14 at 0900, for 30 Minutes, Adjust to 4 hours from intraoperative dose. * Beta-lactam based antibiotics (eg. Ampicillin, Cefazolin, Aztreonam) should be administered within 4 hours of the preceding intraoperative dose. * Vancomycin, Flouroquinolones, Clindamycin, Gentamicin, and Metronidazole should be administered within 8 hours of the preceding intraoperative dose., Recovery (Recovery-Hospital Unit), Indication for (Active or Suspected): Prophylaxis celecoxib (CeleBREX) capsule 200 mg (CANCELED) 826 (G iven - Provider: Stefania Lux RN)2030 (Given - Provider: Roxanne Beltran RN) 0828 (Given - Provider: Scarlett Brian RN)2034 (Given - Provider: Roxanne Beltran RN) 0840 (Given - Provider: Scarlett Brian RN) 200 mg, Oral, 2 TIMES DAILY, First dose on Sat10/19/14 at 2100, Until Discontinued, Routine esomeprazole (NexIUM) capsule 20 mg (CANCELED) 08 (G iven - Provider: Stefania Lux RN) 0828 (Given - Provider: Scarlett Brian RN) 0840 (Give n - Provider: Scarlett Brian RN) 20 mg, Oral, DAILY, First dose on Sat at 2000, Until Discontinued, Routine gabapentin (NEURONTIN) capsule 300 mg (CANCELED) 163 (Given - Provider: Scarlett Brian RN) 300 mg, Oral, EVERY EVENING, First dose on Sat10/21/14 at 1700, Until Discontinued, Routine gabapentin (NEURONTIN) capsule 600 mg (COMPLETED) 163 (Given - Provider: Stefania Lux RN) 600 mg, Oral, EVERY EVENING, 2 doses, Fi rst dose on Sat10/19/14 at 2000, Last dose on Sat10/20/14 at 1700, Routine ketorolac (TORADOL) injection 15 mg (COMPLETED) 030 ( Given - Provider: Roxanne Beltran RN)08 (Given - Provider: Stefania Lux RN)163 (Given - Provider: Stefania Lux RN) 15 mg, Intravenous, EVERY 6 HOURS SCHEDU LED, 4 doses, First dose on Sat10/19/14 at 1700, Last dose on Sat10/20/14 at 1500, Routine losartan (COZAAR) tablet 50 mg (CANCELED) 0900 (Not Gi abigail - Provider: Stefania Lux RN - Reason: See comment - Comment: BP low) 08 (Given - Provider: Scarlett Brian RN) 0840 (Given - Provider: Scarlett Brian, ALINA) 50 mg, Oral, DAILY, First dose on Sat at 0900, Until Discontinued, Routine multivitamin Wije-Mv-JO-Min (THERAPEUTIC-M) 27-0.4 mg tablet 1 tablet 0828 (Given - Provider: Stefania Lux RN) 0829 (Given - Provider: Scarlett Brian RN) 0840 (Given - Provider: Scarlett Brian RN) 1 tablet, Oral, DAILY, First dose on Sat10/19/14 at 2000, Until Discontinued, Routine polyethylene glycol (MIRALAX) packet 17 g 0828 (Given - Provider: Stefania Lux RN)2030 (Given - Provider: Roxanne Beltran RN) 0827 (Given - Provider: Scarlett Brian RN)2034 (Given - Provider: Roxanne Beltran RN) 0900 (Not Given - Provider: Scarlett Brian RN - Reason: Contraindicated) 17 g, Oral, 2 TIMES DAILY, First dose on Sat10/19/14 at 2100, Until Discontinued, Routine rOPINIRole (REQUIP) tablet 0.25 mg (CANCELED) 0815 (Gi abigail - Provider: Stefania Lux RN)123 (Given - Provider: Stefania Lux RN - Comment: ordered dose; schedule change) 0.25 mg, Oral, 3 TIMES DAILY, First dose on Sat10/20/14 at 0900, Until Discontinued, Routine rOPINIRole (REQUIP) tablet 0.25 mg (CANCELED) 1630 (Gi abigail - Provider: Stefania Lux RN)2031 (Given - Provider: Roxanne Beltran RN) 0238 (Given - Provider: Miri Sandhu RN)0827 (Given - Provider: Scarlett Brian, ALINA)1154 (Given - Provider: Scarlett Brian, ALINA)1535 (Given - Provider: Scarlett Brian, ALINA)2034 (Given - Provider: Roxanne Beltran RN) 0151 (Given - Provider: Roxanne Beltran RN)0840 (Given - Provider: Scarlett Brian RN)1231 (Given - Provider: Scarlett Brian, ALINA) 0.25 mg, Oral, 5 TIMES DAILY, First dose on Sat10/20/14 at 1600, Until Discontinued, Routine senna-docusate (PERICOLACE) 8.6-50 mg per tablet 2 tab let (CANCELED) 0828 (Given - Provider: Stefania Lux RN)2031 (Given - Provider: Roxanne Beltran RN) 0836 (Given - Provider: Scarlett Brian RN)2035 (Not Given - Provider: Roxanne Beltran RN - Reason: See comment - Comment: lg bm x2) 0840 (Given - Provider: Scarlett Brian, ALINA) 2 tablet, Oral, 2 TIMES DAILY, First dos e on Sat10/19/14 at 2100, Until Discontinued, Routine sodium chloride 0.9 % flush 5 mL (CANCELED) 0829 (Give n - Provider: Stefania Lux RN)2031 (Given - Provider: Roxanne Beltran RN) 0829 (Given - Provider: Scarlett Brian RN)2034 (Given - Provider: Roxanne Beltran, ALINA) 0841 (Given - Provider: Scarlett Brian, ALINA) 5 mL, Intravenous, 2 TIMES DAILY, First dose on Sat10/19/14 at 2100, Until Discontinued, Recovery (Recovery-Hospital Unit), Routine sodium chloride 0.9% 500 mL IV bolus (COMPLETED) 1400 (Given - Provider: Stefania Lux RN) Intravenous, ONCE, 1 dose, Sat10/20/14 at 1400 warfarin (COUMADIN) tablet 2.5 mg (COMPLETED) 1631 (Given - Provider: Scarlett Brian RN) 2.5 mg, Oral, ONCE, 1 dose, Sat10/21/14 at 1700, Routine warfarin (COUMADIN) tablet 2.5 mg 2.5 mg, Oral, ONCE, 1 dose, Sat10/22/14 at 1700, Routine warfarin (COUMADIN) tablet 5 mg (COMPLETED) 1630 (Give n - Provider: Stefania Lux RN) 5 mg, Oral, ONCE, 1 dose, Sat10/20/14 at 1700, Routine Continuous Medication Order 10/20/2014 10/21/2014 10/22/2014 sodium chloride 0.9% infusion () 0308 (New Bag - Provider: Roxanne Beltran RN)0700 (Rate/Dose Verify - Provider: Roxanne Beltran RN)1333 (New Bag - Provider: Stefania Lux RN) 1,000 mL, at 100 mL/hr, Intravenous, CON TINUOUS, Starting Sat10/19/14 at 1700, Until Sat10/20/14 at 1644, Recovery (Recovery-Hospital Unit) PRN Medication Order 10/20/2014 10/21/2014 10/22/2014 bisacodyl (DULCOLAX) EC tablet 10 mg (CANCELED) 0828 (Given - Provider: Scarlett Brian RN) 10 mg, Oral, 2 TIMES DAILY PRN, Starting Sat10/19/14 at 1810, Until Sat10/22/14 at 1507, Constipation, Administer if needed per patient's routine or if no bowel movement within 48 hours to achieve: 1) O ne bowel movement at least every 48 hour s, AND 2) Without straining. If multiple bowel medications ordered, consider adding bisacodyl if polyethylene glycol (MIRALAX), docusate/senna, or lactulose not sufficient., Routine oxyCODONE (ROXICODONE) immediate release tablet 10 mg (CANCELED) 0642 (Given - Provider: Roxanne Beltran RN)2030 (See Alternative - Provider: Roxanne Beltran RN) 035 (See Alternative - Provider: Roxanne Beltran RN)0827 (See Alternative - Provider: Scarlett Brian RN)153 (See Alternative - Provider: Scarlett Brian RN)2034 (See Alternative - Provider: Roxanne Beltran RN) 0840 (See Alternative - Provider: Scarlett Brian RN)1232 (See Alternative - Provider: Scarlett Brian RN) 10 mg, Oral, EVERY 4 HOURS PRN, Starting Sat10/19/14 at 1642, Until Sat10/22/14 at 1507, Pain, moderate pain (4-6), For moderate pain (4-6)., Routine oxyCODONE (ROXICODONE) immediate release tablet 5 mg 0 642 (See Alternative - Provider: Roxanne Beltran RN)2030 (Given - Provider: Roxanne Beltran RN) 035 (Given - Provider: Roxanne Beltran RN)0827 (Given - Provider: Scarlett Brian RN)1535 (Given - Provider: Scarlett Brian RN)2034 (Given - Provider: Roxanne Beltran RN) 0840 (Given - Provider: Scarlett A Snehal, RN)1232 (Given - Provider: Scarlett Brian RN) 5 mg, Oral, EVERY 4 HOURS PRN, Starting Sat10/19/14 at 1642, Until Sat10/22/14 at 1507, Pain, mild pain (0-3), For mild pain (0-3)., Routine documented in this encounter Care Teams Machine Filler Shredder Relationship Specialty Start Date End Date Nayla Galan MD PCP - General 12/13/11 10/25/15 [address] [place] [address] documented as of this encounter
--- OUTSIDE RECORDS SUMMARY | 2021-10-09 21:47 | XMS_ITS | Encounter Summary ---
:1940 [place] [address] Care Team Providers Name Role Phone Nayla Galan MD Primary Care Provider Reason for Referral Consultation (Routine) - Closed Specialty Diagnoses / Procedures Referred By Contact Refer red To Contact Orthopaedic Surgery Diagnoses S/P total hip arthroplasty Key Winkler, STONE PRODUCT FABRICATOR [facility] [place] [address] Referral ID Status Reason Start Date Expiration Date Visits V isits Requested Authorized [id number] Closed Assume 10/22/2014 04/20/2015 1 1 Subset of Care Encounter Details Date Type Department Care Team Description 10/19/2014 - Hospital Encounter 3 Calos Arriola, S/P left revision 10/22/2014 [facility] Petar Sanz MD total hip [facility] arthroplasty [facility] ALEX ROSA 10/19/2014 (Dr. Castillo ORTHOPAEDIC [place]) [place], [place] SURGERY [address] [place], [place] [phone] [id number] Social History Tobacco Use Types Packs/Day Years [...] in this encounter Discharge Summaries Key Winkler, STONE PRODUCT FABRICATOR - 10/20/2014 3:33 PM EDT Discharge Summary Patient Name: Marcia Palma Patient Age: 74 y.o. Language: Polish Race: White Ethnicity: Not nor Admit date: 10/19/2014 Discharge date and time: 10/22/2014 Attending Physician: Petar Arriola MD Discharge Physician: Petar Arriola MD Follow-up Recommendations for Providers: Future Appointments Date Time Provider Department Center 11/29/2014 10:20 AM Petar Arriola MD [facility] None Inpatient Provider Contact Information: Petar Arriola MD Joints: [phone]. After hours and weekends, call [facility] Sales Account Executive, , and have the Orthopedic resident paged. Discharge Diagnoses (Hospital Problems) and Secondary Diagnoses (Chronic Problems): Active Hospital Problems Diagnosis ??? 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 Arriola) Resolved Hospital Problems Diagnosis Date Resolved No resolved problems to display. Active Non-Hospital Problems Diagnosis ??? Left hip prosthetic joint infection ??? Medication monitoring encounter ??? 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 Retinal detachment [...] total hip arthroplasty by Dr. Monte in [facility] back in 2012. She had multiple issues with her wound with continued drainage and multiple I and Ds. 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 At that point, she was referred to [facility]. I believe she was initially seen by [...] Weight: Wt Readings from Last 1 Encounters: 10/19/ 83.915 kg (185 lb) Height: Ht Readings from Last 1 Encounters: 10/19/ 160 cm (5' 2.99) HC: HC Readings [...] controlled on oral medications. Discharge to: Rehab [facility] [address] [address] Updated Allergies/ADRs: Allergies Allergen Reactions ??? Amoxicillin [...] Your Medications New Medications Dose Details multivitamin Lzqv-Hq-WQ-Min 27-0.4 mg Tab Commonly known as: THERAPEUTIC-M [...] FAX a copy of the coumadin[facility] - [phone]. 2. Activity: Enhanced: Full weight bearing as [...] please call the Orthopedic Clinic Nurse at [phone] for further dose instructions. If it is after 5pm oron the weekends, the Orthopedic resident educational coordinator will be managing your dosing (please call [phone] and ask for them to be paged). [...] not take or discontinue any prescription or cust-iyh-yzrjmrp medications without asking your doctor or pharmacist [...] bowel movement. You can also take an itih-zue-ouncoas medication, Miralax if needed to combat constipation. [...] 1. You will have followup appointments at [facility] as indicated below in Future Appointment and Orders. 2. You will need to have have x-rays prior to your follow-up appointment on 11/29. Please come to Radiology, desk 3T, 1 hour BEFORE that appointment for those x-rays. Future Appointments Date Time [facility] Department Center 11/29/2014 10:20 AM Petar Arriola [...] 11/29/2014 10:20 AM Petar Arriola MD Orthopaedics [phone] Joint Appt ORTHO, [facility] Orthopaedics [phone] Future Orders Complete By Expires Referral for Anticoagulation Monitoring [TDD122 Custom] As directed Process Instructions: If no progress note charted, please enter Clinical details in comments. Scheduling Instructions: Questions: INR Goal: 2.0-3.0 Responsible Group: [facility] Target End Date: 11/16/2014 Next due INR: 10/23/2014 Risk Factors: Rise in INR from 1.6 to 2.1 October 22. My question or request is: Coumadin, s/p Left MILTON Revision 10/19 Primary Care Provider: NAYLA GALAN MD [phone] Discharge References/Attachments WARFARIN (BURKINAN) documented in this encounter Discharge Instructions Discharge InstructionsSaKey canada, STONE PRODUCT FABRICATOR - 10/22/2014 12:10 PM EDT Activity: 1. [...] please call the Orthopedic Clinic Nurse at [phone] for further dose instructions. If it is after 5pm oron the weekends, the Orthopedic resident educational coordinator will be managing your dosing (please call [phone] and ask for them to be paged). [...] not take or discontinue any prescription or wjck-cbw-angjljq medications without asking your doctor or pharmacist [...] bowel movement. You can also take an bdpq-unl-wgjveaf medication, Miralax if needed to combat constipation. [...] 1. You will have followup appointments at [facility] as indicated below in Future Appointment and [...] cannot be sent through Care Everywhere. WARFARIN (BURKINAN)documented in this encounter Medications at Time of [...] multivitamin Take 1 tablet by 0 10/22/20142014 Yocg-Lr-EV-Min mouth daily. (THERAPEUTIC-M) 27-0.4 mg Tablet oxyCODONE [...] implant MILTON following spacer. (pt went to [facility] rehab following spacer for 5 weeks. PMH: Past Medical History Diagnosis Date ??? Lumbar degenerative disc disease 12/13/2011 ??? Left hip pain 01/17/2012 PSH: Past Surgical History Procedure Laterality Date ??? Removal of hip prosthesis, complex Left 06/23/2014 @TOTAL HIP PROSTHESIS, REMOVAL performed by Petar Arriola MD at [facility] ??? Left 06/23/2014 MODIFIER PROSTALAC DEPUY performed by Petar Arriola MD at [facility] ??? Revise total hip replacement Left 10/19/2014 @TOTAL HIP REVISION ARTHROPLASTY, COMPLETE performed by Petar Arriola MD at [facility] ??? Left 10/19/2014 MODIFIER RECLAIM DEPUY performed by Petar Arriola MD at [facility] ??? Left 10/19/2014 MODIFIER PINNACLE ACETABULUM DEPUY performed by Petar Arriola MD at [facility] Social History: Patient lives with her . 3 steps with 1 railing to enter. Ind amb with FWW WATER SKI ASSEMBLER (50% PWB) Precautions/Special Considerations: WBAT L L/E, [...] for therapeutic functional Samy Marie PTA Pager: [phone] Liz Wilson - 10/22/2014 10:25 AM EDT Office of Care Management/Business Integration Manager Patient Name: Marcia Palma : 1940 Patient has been offered a SNF bed at [facility] Private car arranged for a 13:00 transport. No MD to MD report necessary Please call Nursing Report to , ask for pressing department supervisor. Info to accompany patient: Narcotic Prescriptions Copies of Medication Administration Records and IV sheets for past 10 days. Plan: Business Integration Manager will be available to the patient and CRC for further assistance. Patient will be discharged to: [facility] [address] [place] [address] Liz Muhammad, Business Integration Manager Ranulfo Coronado MD - 10/22/2014 4:58 AM [...] Intake/Output Summary (Last 24 hours) at 10/22/14 0511 Last data filed at 10/22/14 0310 Gross per 24 hour Intake 600 ml Output 0 ml Net 600 ml Well appearing, alert and oriented, appropriate Breathing comfortably LLE: Dressing c/d/i. Motor intact ADF/APF/EHL. Sensation grossly intact to light touch in SP/DP/T/S nerve distribution. Foot warm, palpable DP pulse, brisk cap refill distally. Recent Labs 10/22/14 0354 10/21/14 0427 10/20/14 0335 10/19/141999 WBC 7.5 8.4 12.5* -- HGB 8.6* 8.5* 10.6* -- HCT 26.6* 26.9* 32.6* -- PLATELET 198 198 242 -- PT 23.9* 19.1* 14.1 14.4 INR 2.1* 1.6* 1.1 1.1 Recent Labs 10/22/14 0354 10/21/14 04210/20/145 NA 137 134* 139 K 4.4 3.9 [...] tolerated, Enhanced posterior hipprecautions ?? Wound closure: [place] to be removed in 14 days ?? [...] rehab bed PETAR ARRIOLA MD, MS 10/22/2014 Samy Marie, [facility] - 10/21/2014 1:06 PM EDT Physical Therapy Note Total Hip Arthroplasty Treatment # 2 Patient Profile: Pt. is a 74 y.o. female admitted on 10/19/2014 by Petar Ahuja MD for L re implant MILTON following spacer. (pt went to [facility] rehab following spacer for 5 weeks. PMH: Past Medical History Diagnosis Date ??? Lumbar degenerative disc disease 12/13/2011 ??? Left hip pain 01/17/2012 PSH: Past Surgical History Procedure Laterality Date ??? Removal of hip prosthesis, complex Left 06/23/2014 @TOTAL HIP PROSTHESIS, REMOVAL performed by Petar Arriola MD at [facility] ??? Left 06/23/2014 MODIFIER PROSTALAC DEPUY performed by Petar Arriola MD at [facility] ??? Revise total hip replacement Left 10/19/2014 @TOTAL HIP REVISION ARTHROPLASTY, COMPLETE performed by Petar Arriola MD at [facility] ??? Left 10/19/2014 MODIFIER RECLAIM DEPUY performed by Petar Arriola MD at [facility] ??? Left 10/19/2014 MODIFIER PINNACLE ACETABULUM DEPUY performed by Petar Arriola MD at [facility] Social History: Patient lives with her . 3 steps with 1 railing to enter. Ind amb with FWW WATER SKI ASSEMBLER (50% PWB) Precautions/Special Considerations: WBAT L L/E, [...] timed treatment: 40 minutes for therapeutic functional Rosabrett Marie, WATER SKI ASSEMBLER Pager: [phone] Ranulfo Coronado MD - 10/21/2014 5:59 AM [...] Intake/Output Summary (Last 24 hours) at 10/21/14 0593 Last data filed at 10/21/14 0408 Gross [...] 14.1 14.4 INR 1.1 1.1 Recent Labs 10/20/14334 NA 139 K 5.0 CL 102 CO2 [...] tolerated, Enhanced posterior hipprecautions ?? Wound closure: [place] to be removed in 14 days ?? [...] were A-, currentT+S on file A-. Mahin ENGINE ROOM OPERATOR made aware, confirmed A- is correct; past [...] AM EDT Office of Care Management Clinical [employer] Patient Name: Marcia Palma : 1940, 74 yrs Admission Date: 10/19/2014 10:54 AM Attending: Petar Arriola MD Record reviewed and patient discussed with multidisciplinary team. [facility] [address] [address] In to discuss with pt and - agreeable to d/c plan. will transport pt @ 1pm today (after lunch). D/C packet @ nsg station with # for report. Nsg will need to add d/c summary and MAR along with any narcotic scripts. Erika Wells RN Office of Care Management Clinical [employer] Pager [phone] Computer Applications Engineer remains available as needed for coordination of care and discharge planning. Plan of Care - Roxanne Beltran RN - 10/22/2014 5:36 AM EDT Problem: General Plan of Care Goal: Plan of Care Review 10/21/14134310/21/142034 Plan of Care Review Plan of Care [...] none -- Goal: Fall Prevention-Safe Patient Handling 10/21/14199910/21/14203410/22/140 Safety Interventions Safety Precautions/Fall Reduction -- assistive [...] Prevention environmental surveillance Goal: Discharge Needs Assessment 07/23/15 1344 Discharge Needs Assessment Concerns to be [...] manageable (reference (Hip Replacement, Total (Adult)) CPG) 10/21/14 1344 Hip Replacement, Total Problems Assessed (Total Hip Replacement) all Problems Present (Total Hip Replacement) acute pain Plan of Care - Scarlett Brian RN - 10/21/2014 1:50 PM EDT Problem: General Plan of Care Goal: Plan of Care Review 10/21/141343 Plan of Care Review Plan of Care [...] none -- Goal: Fall Prevention-Safe Patient Handling 10/21/1482610/21/141343 Safety Interventions Safety Precautions/Fall Reduction assistive device;commode/urinal/bedpan [...] Fall Risk High -- Goal: Infection Control 10/21/1482610/21/141343 Coping/Psychosocial Response Interventions Counseling emotional support provided;goal setting facilitated;reassurance provided;verbalization offeelings encouraged -- Safety Interventions Isolation Precautions -- standard precautions maintained Infection Prevention environmental surveillance;rest/sleep promoted -- Goal: Discharge Needs Assessment 10/21/141343 Discharge Needs [...] PM EDT Office of Care Management Clinical [employer] Patient Name: Marcia Palma : 1940, 74 yrs Admission Date: 10/19/2014 10:54 AM Attending: Petar Arriola MD Order to Admit: Record reviewed and patient discussed with multidisciplinary team. Pt will be ready to d/c tomorrow.Family can transport. 1st choice and referral pending with [facility] bed. In to speak with pt. Aware that has not been accepted yet to [facility]. Stated that that is where she wants to go but as a 2nd choice, [facility] [address], [place] [address] Will make referral to [facility] Computer Applications Engineer remains available as needed for coordination of care and discharge planning. Erika Wells RN Office of Care Management Clinical [employer] Pager [phone] Plan of Care - Roxanne Beltran RN [...] Oriented to own ability Surveillance: purposefull rounding laura CPG GOAL OUTCOME EVALUATION: Goal: Skin Integrity/Wound [...] 500mL NS bolus. Pt was able to ssnu652aT 3 hours later. Dressing is C/D/I. Family at the pts bedside visiting most of the day. PLAN MOVING FORWARD: PT/OT. Pain mgt. Monitor intake/output. D/C planning. INDIVIDUALIZED FALL PREVENTION: Assistance: Stand by assist with the walker. Supervision: Close to RN station; hourly rounding [facility] GOAL OUTCOME EVALUATION: Care Management - Erika Wells RN - 10/20/2014 2:49 PM EDT Office of Care Management Clinical [employer] Patient Name: Marcia Palma : 1940, 74 [...] None on File (x) HEALTH /PRESCRIPTION COVERAGE: [employer] CURRENT HOME/COMMUNITY SERVICES/EQUIPMENT: DME: Walker, cane Home Health Agency: none ECOLOGICAL RISK ASSESSOR REFERRAL: No needs identified PRIMARY CARE PHYSICIAN: NAYLA GALAN MD [phone] POTENTIAL DISCHARGE NEEDS: Patient would benefit from acute/SNF/swing/LTAC rehab at discharge. Full Disclosure Statement provided, as appropriate. ?? Met with patient/family at bedside. Provided [facility], Office of Care Management letter from the Manager Pathology pertaining to rehab referrals.. ?? Reviewed levels of rehab including SNF, swing, acute and LTAC. ?? A list that serves the geographical area which the patient resides or the geographical area requested has been provided through [employer] search. ?? Requested patient/family provide at least three choices for referral. ?? Patient/family request referrals to: [facility] (Swing) [address] [facility], [place] [address] Stated that if unable to get into above facility, would consider [facility] [phone]. Had vna in past and would rather not have again. Note routed to Business Integration Manager who will communicate referrals to facilities via [employer] program. TRANSPORTATION @ D/C: family PLAN: CRC will continue to monitor progress, follow for continuity of care and assist with dischargeplanning while hospitalized Erika Wells RN Office of Care Management Clinical [employer] Pager [phone] Initial Assessments - Veronique Benjamin, OT - 10/20/2014 10:15 AM EDT Occupational [...] REMOVAL performed by Petar Arriola MD at [facility] ??? Left 06/23/2014 MODIFIER PROSTALAC DEPUY performed by Petar Arriola MD at [facility] Social History: Patient lives [...] necessary equipment Discharge Recommendations: Patient will require 24/7 supervision and assistance. Patient would benefit and [...] evaluation Total timed interventions: 0 minutes Pager: [phone] Veronique Benjamin OT 10/20/2014 Occupational Therapy Rehabilitation Department Initial Assessments - Gayatri Mayer, PT - 10/20/2014 9:00 AM EDT Physical Therapy Evaluation Total Hip Arthroplasty Patient Profile: Pt. is a 74 y.o. female admitted on 10/19/2014 by Petar Ahuja MD for L re implant MILTON following spacer. (pt went to [facility] rehab following spacer for 5 weeks. PMH: Past Medical History Diagnosis Date ??? Lumbar degenerative disc disease 12/13/2011 ??? Left hip pain 01/17/2012 PSH: Past Surgical History Procedure Laterality Date ??? Removal of hip prosthesis, complex Left 06/23/2014 @TOTAL HIP PROSTHESIS, REMOVAL performed by Petar Arriola MD at [facility] ??? Left 06/23/2014 MODIFIER PROSTALAC DEPUY performed by Petar Arriola MD at [facility] ??? Revise total hip replacement Left 10/19/2014 @TOTAL HIP REVISION ARTHROPLASTY, COMPLETE performed by Petar Arriola MD at [facility] ??? Left 10/19/2014 MODIFIER RECLAIM DEPUY performed by Petar Arriola MD at [facility] ??? Left 10/19/2014 MODIFIER PINNACLE ACETABULUM DEPUY performed by Petar Arriola MD at [facility] Social History: Patient lives with her . 3 steps with 1 railing to enter. Ind amb with FWW WATER SKI ASSEMBLER (50% PWB) Precautions/Special Considerations: WBAT L L/E, [...] 1 crutch. Discharge Recommendations: Patient will require 24 supervision and assistance. Patient would benefit and [...] 35 minutes Total timed treatment: 0 minutes jovonal Gayatri Mayer, PT Pager: [phone] Plan of Care - Roxanne Beltran RN [...] 2 assist Supervision: As needed Surveillance: laura mixing CPG GOAL OUTCOME EVALUATION: Goal: Individualization and [...] Arriola MD - 10/19/2014 4:50 PM EDT [facility] Operative Note Patient Name: Marcia Palma : [id number] MR#: [id number] Case Date: 10/19/2014 Surgeon: Surgeon(s) and Role: [...] total hip arthroplasty by Dr. Monte in [facility] back in 2012. She had multiple issues with her wound with continued drainage and multiple I and Ds. 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 At that point, she was referred to [facility]. I believe she was initially seen by [...] access to the femoral canal and a [place] reverse curette was used to remove any [...] irrigated the femoral canal using a canal clay pigeon setter. At that point, a 17 x 140-mm stem was opened and impacted into place and noted to seat at the same level of the reamer. We then placed a proximal corporation pilot and prepared for the proximal body using [...] Implant Name Type Inv. Item Serial No. Rac Specialist Lot No. LRB No. Used Action SCREW,CACLS,PNNCL,6.5X25MM ([id number]) (AUTOREQ) - [id number] IMPLANTS 5385 Depuy Housekeeping Supervisor Hotel - 352 [id number] Left 1 Implanted CUP,HIP,ACETB,GRPTN,MLTHL,54MM ([id number]) (AUTOREQ) - [id number] IMPLANTS 4751 [employer]uy Housekeeping Supervisor Hotel - 352 [id number] Left 1 Implanted SCREW,CACLS,PNNCL,6.5X25MM ([id number]) (AUTOREQ) - [id number] IMPLANTS 5385 Depuy Housekeeping Supervisor Hotel - 352 [id number] Left 1 Implanted SCREW,CACLS,PNNCL,6.5X25MM ([id number]) (AUTOREQ) - [id number] IMPLANTS 5385 Depuy Housekeeping Supervisor Hotel - [facility] [id number] Left 1 Implanted SCREW,CACLS,PNNCL,6.5X30MM (1596149) (AUTOREQ) - [id number] IMPLANTS 5386 Depuy Housekeeping Supervisor Hotel - 352 [id number] Left 1 Implanted SCREW,BN,PINN,CANCLS,6.5X8MM (1142647) (AUTOREQ) - [id number] IMPLANTS 59867 [employer]uy Housekeeping Supervisor Hotel - [id number] Left 1 Implanted SCREW,CACLS,PNNCL,6.5X15MM (1463060) (AUTOREQ) - [id number] IMPLANTS 4723 Depuy Housekeeping Supervisor Hotel - 352 [id number] Left 1 Implanted STEM,REC,DIST,TPR,[id number] (9218700) (AUTOREQ) - [id number] IMPLANTS 84335 Depuy Housekeeping Supervisor Hotel - 352 [id number] Left 1 Implanted INSER,ALTRX,NT,+4,71U02SS (5689770) (AUTOREQ) - [id number] IMPLANTS 5397 Dep303 [employer] Housekeeping Supervisor Hotel - 352 [id number] Left 1 Implanted CONE,BODY,RECLAIM,PRX,20X75 (3209923) (AUTOREQ) - [id number] IMPLANTS 76838 Dep303 [employer] Housekeeping Supervisor Hotel - 352 [id number] Left 1 Implanted HEAD,ATC,MTL,+1.5MM,36MM (0419617) (AUTOREQ) - [id number] IMPLANTS 6554 [employer] Tech - 3527 [id number] Left 1 Implanted Brief Op Note - Petar Arriola MD - 10/19/2014 4:06 PM EDT Brief Operative Note Patient Name: Marcia Palma : [id number] MR#: [id number] Case Date: 10/19/2014 Surgeon: Surgeon(s) and Role: [...] tolerated, Enhanced posterior hipprecautions ?? Wound closure: [place] to be removed in 14 days ?? [...] Implant Name Type Inv. Item Serial No. Rac Specialist Lot No. LRB No. Used Action SCREW,CACLS,PNNCL,6.5X25MM ([id number]) (AUTOREQ) - [id number] IMPLANTS 5385 [employer]uy Housekeeping Supervisor Hotel - [facility] [id number] Left 1 Implanted CUP,HIP,ACETB,GRPTN,MLTHL,54MM (5504796) (AUTOREQ) - [id number] IMPLANTS 4751 Depuy Housekeeping Supervisor Hotel - [facility]7 [id number] Left 1 Implanted SCREW,CACLS,PNNCL,6.5X25MM (9962251) (AUTOREQ) - [id number] IMPLANTS 5385 [employer]uy Housekeeping Supervisor Hotel - [facility] [id number] Left 1 Implanted SCREW,CACLS,PNNCL,6.5X25MM (7607790) (AUTOREQ) - [id number] IMPLANTS 5385 [employer] Housekeeping Supervisor Hotel - [facility] [id number] Left 1 Implanted SCREW,CACLS,PNNCL,6.5X30MM (2488230) (AUTOREQ) - [id number] IMPLANTS 5386 [employer] Housekeeping Supervisor Hotel - [facility] [id number] Left 1 Implanted SCREW,BN,PINN,CANCLS,6.5X8MM (4179008) (AUTOREQ) - [id number] IMPLANTS 65332 [employer]uy Housekeeping Supervisor Hotel - [id number] Left 1 Implanted SCREW,CACLS,PNNCL,6.5X15MM (2486416) (AUTOREQ) - [id number] IMPLANTS 4723 [employer]uy Housekeeping Supervisor Hotel - [facility] [id number] Left 1 Implanted STEM,REC,DIST,TPR,[id number] ([id number]) (AUTOREQ) - [id number] IMPLANTS 79418 Depuy Housekeeping Supervisor Hotel - 3527 [id number] Left 1 Implanted INSER,ALTRX,NT,+4,22K34UK (1526946) (AUTOREQ) - [id number] IMPLANTS 5397 Depuy Housekeeping Supervisor Hotel - 3527 [id number] Left 1 Implanted CONE,BODY,RECLAIM,PRX,20X75 ([id number]) (AUTOREQ) - [id number] IMPLANTS 86751 Depuy Housekeeping Supervisor Hotel - 3527 [id number] Left 1 Implanted HEAD,ATC,MTL,+1.5MM,36MM (0724582) (AUTOREQ) - [id number] IMPLANTS 6554 Depuy Housekeeping Supervisor Hotel - 3527 [id number] Left 1 Implanted documented in this encounter [...] Glucose 99 65 - 199 CERNER mg/dL [employer] Comment: Supplemental ranges: <140 mg/dL before meals <180 mg/dL all other times of the day Specimen Anatomical Collection Method Collection Time Receive d Time (Source) Location / / Volume Laterality Blood specimen 10/22/2014 11:50 5 (specimen) AM EDT 11:50 AM EDT Petar Arriola MD POINT OF CARE TEST ORDERABLE S Performing Organization Address City/State/[place] [address] CERNER MILLENNIUM POCT Glucose (10/22/2014 [...] Organization Address City/State/ZIP Code Phon e Number [place] [id number] CERNER MILLENNIUM Differential, Automated (10/22/2014 3:54 AM EDT) athologist Signature Neutrophils % 58.0 % CERNER [...] Arriola MD HEMATOLOGY ORDERABLES Performing Organization Address City/[facility]/[place] [address] CERNER MILLENNIUM (ABNORMAL) Hemogram [...] Arriola MD HEMATOLOGY ORDERABLES Performing Organization Address City/[facility]/[place] [address] CERNER MILLENNIUM (ABNORMAL) Prothrombin Time (10/22/2014 3:54 AM EDT) P athologist Signature PT 23.9 (H) 12.0 - 15.0 CERNER sec MILLENNIUM Comment: Transfusion Committee Guidelines: INR less than 2.0, PTT less than OR equal to 43.5 seconds, or Fibrinogen greater t pompa or equal to 100 mg/dl indicate adequate procoagulant activity for hemos tasis in patients without underlying bleeding disorders. INR 2.1 (H) 0.9 - 1.1 CERNER MILLENNIUM Specimen Anatomical Collection Method Collection Time Receive d Time (Source) Location / / Volume Laterality Blood specimen 10/22/2014 3:54 AM 015 4:05 (specimen) EDT AM EDT Resulting Agency Comment Spec In Lab Petar Arriola MD HEMATOLOGY ORDERABLES Performing Organization Address City/State/[place] [address] CERNER MILLENNIUM (ABNORMAL) Basic Metabolic Panel (non-fasting) (10/22/2014 3:54 AM EDT) athologist Signature Glucose Lvl 129 65 - 199 CERNER mg/dL MILLENNIUM Comment: Diabetes: >=200 mg/dL plus symp toms BUN 21 (H) 8 - 18 mg/dL CERNER MILLENNIUM Creatinine 0.87 0.70 - 1.20 mg/dL CERNER MILL ENNIUM Comment: Please note that the pediatric reference intervals supplied above were not validated at [facility]. Results from pediatri c patients should be [...] the following links into your internet browser. [email or web address] Specimen Anatomical Collection Method Collection Time Receive d Time (Source) Location / / Volume Laterality Blood specimen 10/22/2014 3:54 AM 015 4:05 (specimen) EDT AM EDT Resulting Agency Comment Spec In Lab Petar Arriola MD CHEMISTRY ORDERABLES Performing Organization Address City/[facility] Phon e Number [address] CERNER MILLENNIUM POCT Glucose [...] CARE TEST ORDERABLE S Performing Organization Address [facility]/ZIP Code Phon e Number [address] CERNER MILLENNIUM POCT Glucose (10/21/2014 4:54 PM EDT) P athologist Signature POC Glucose 130 65 - [...] CARE TEST ORDERABLE S Performing Organization Address City/[facility]/[place] [address] CERNER MILLENNIUM POCT Glucose (10/21/2014 [...] Organization Address City/State/ZIP Code Phon e Number [address] CERNER MILLENNIUM POCT Glucose [...] Organization Address City/State/[place] [address] CERNER MILLENNIUM Differential, Automated (10/21/2014 [...] Organization Address City/State/[place] [address] CERNER MILLENNIUM (ABNORMAL) Hemogram (10/21/2014 4:27 AM EDT) athologist Signature WBC 8.4 4.0 - 10.0 CERNER x10(3)/mcL MILLENNIUM RBC 2.91 (L) 3.93 - CERNER 5.22 MILLENNIUM x10(6)/mcL Hemoglobin 8.5 (L) 11.2 - CERNER 15.7 gm/dL MILLENNIUM Comment: Called by: [facility], Read back by: JANNETH BELTRAN, Date-Time: 10-21-14 05:17. NURSE SAID OK TO ENTER. Hematocrit 26.9 (L) 34.0 - 45.0 % CERNER MILLENNI UM MCV 92.4 79.0 - 94.0 fL CERNER MILLENNI UM MCH 29.2 26.6 - 32.2 pg CERNER MILLENNI UM MCHC 31.6 (L) 32.0 - 36.5 gm/dL CERNER MILLE NNIUM Platelets 198 145 - 370 x10(3)/mcL BEST ME LLENNIUM RDWSD 54.1 (H) 35.0 - 46.0 fL BEST STONERENNI UM RDWCV 16.1 (H) 10.9 - 14.4 % BEST STONERENNIU M MPV 10.1 9.0 - 12.0 fL BEST STONERENNIU M Specimen Anatomical Collection Method Collection Time Receive d Time (Source) Location / / Volume Laterality Blood specimen 10/21/2014 4:27 AM 015 4:57 (specimen) EDT AM EDT Resulting Agency Comment Spec In Lab Petar Arriola MD HEMATOLOGY ORDERABLES Performing Organization Address City/[facility]/[place] [address] [facility] HERBIEENNIUM (ABNORMAL) Prothrombin Time (10/21/2014 4:27 AM EDT) P athologist Signature PT 19.1 (H) 12.0 - 15.0 CERNER sec MILLENNIUM Comment: [facility] Transfusion Committee Guidelines: INR less than 2.0, PTT less than OR equal to 43.5 seconds, or Fibrinogen greater t pompa or equal to 100 mg/dl indicate adequate procoagulant activity for hemos tasis in patients without underlying bleeding disorders. INR 1.6 (H) 0.9 - 1.1 [facility] Specimen Anatomical Collection Method Collection Time Receive d Time (Source) Location / / Volume Laterality Blood specimen 10/21/2014 4:27 AM 015 4:57 (specimen) EDT AM EDT Resulting Agency Comment Spec In Lab Petar Arriola MD HEMATOLOGY ORDERABLES Performing Organization Address City/[facility]/[place] [address] [facility] HERBIEENNIUM (ABNORMAL) Basic Metabolic Panel (non-fasting) (10/21/2014 4:27 AM EDT) P athologist Signature Glucose Lvl 138 65 - 199 [facility] mg/dL MILLENNIUM Comment: Diabetes: >=200 mg/dL plus symp toms BUN 22 (H) 8 - 18 mg/dL CERNER MILLENNIUM Creatinine 0.81 0.70 - 1.20 mg/dL CERNER MILL ENNIUM Comment: Please note that the pediatric reference intervals supplied above were not validated at [facility]. Results from pediatri c patients should be [...] the following links into your internet browser. [email or web address] Specimen Anatomical Collection Method Collection Time Receive d Time (Source) Location / / Volume Laterality Blood specimen 10/21/2014 4:27 AM 015 4:57 (specimen) EDT AM EDT Resulting Agency Comment Spec In Lab Petar Arriola MD CHEMISTRY ORDERABLES Performing Organization Address City/State/[place] [address] CERNER MILLENNIUM POCT Glucose [...] Organization Address City/State/[place] [address] CERNER MILLENNIUM POCT Glucose (10/20/2014 5:11 PM EDT) athologist Signature POC Glucose 162 65 - [...] Organization Address City/State/[place] [address] CERNER MILLENNIUM POCT Glucose [...] Organization Address City/State/[place] [address] CERNER MILLENNIUM POCT Glucose [...] AM 015 6:44 (specimen) EDT AM EDT ePtar Arriola MD POINT OF CARE TEST ORDERABLE S Performing Organization Address City/State/[place] [address] CERNER MILLENNIUM (ABNORMAL) Differential, Automated [...] Arriola MD HEMATOLOGY ORDERABLES Performing Organization Address City/[facility]/[place] [address] CERNER MILLENNIUM (ABNORMAL) Hemogram (10/20/2014 [...] Arriola MD HEMATOLOGY ORDERABLES Performing Organization Address City/[facility]/[place] [address] CERNER MILLENNIUM Prothrombin Time (10/20/2014 3:35 AM EDT) P athologist Signature PT 14.1 12.0 - 15.0 CERNER sec MILLENNIUM Comment: [facility] Transfusion Committee Guidelines: INR less than 2.0, PTT less than OR equal to 43.5 seconds, or Fibrinogen greater t pompa or equal to 100 mg/dl indicate adequate procoagulant activity for hemos tasis in patients without underlying bleeding disorders. INR 1.1 0.9 - 1.1 CERNER MILLENNIUM Specimen Anatomical Collection Method Collection Time Receive d Time (Source) Location / / Volume Laterality Blood specimen 10/20/2014 3:35 AM 015 4:18 (specimen) EDT AM EDT Resulting Agency Comment Spec In Lab Petar Arriola MD HEMATOLOGY ORDERABLES Performing Organization Address City/State/ZIP Code Phon e Number [place] [phone] CERNER MILLENNIUM (ABNORMAL) Basic Metabolic Panel (non-fasting) (10/20/2014 3:35 AM EDT) athologist Signature Glucose Lvl 148 65 - 199 CERNER mg/dL MILLENNIUM Comment: Diabetes: >=200 mg/dL plus symp toms BUN 21 (H) 8 - 18 mg/dL CERNER MILLENNIUM Creatinine 0.74 0.70 - 1.20 mg/dL CERNER MILL ENNIUM Comment: Please note that the pediatric reference intervals supplied above were not validated at [facility]. Results from pediatri c patients should be [...] the following links into your internet browser. [email or web address] Specimen Anatomical Collection Method Collection Time Receive d Time (Source) Location / / Volume Laterality Blood specimen 10/20/2014 3:35 AM 015 4:18 (specimen) EDT AM EDT Resulting Agency Comment Spec In Lab Petar Arriola MD CHEMISTRY ORDERABLES Performing Organization Address City/[facility]/ZIP [facility] [place] [address] CERNER MILLENNIUM POCT Glucose (10/19/2014 9:03 PM EDT) P athologist Signature POC Glucose 161 65 - 199 CERNER mg/dL MILLENNIUM Comment: Supplemental ranges: <140 mg/dL before meals <180 mg/dL all other times of the day Specimen Anatomical Collection Method Collection Time Receive d Time (Source) Location / / Volume Laterality Blood specimen 10/19/2014 9:03 PM 015 9:03 (specimen) EDT PM EDT Petar Arriola MD POINT OF CARE TEST ORDERABLE S Performing Organization Address City/[facility] [place] [address] CERNER MILLENNIUM Prothrombin Time (10/19/2014 8:00 PM EDT) P athologist Signature PT 14.4 12.0 - 15.0 CERNER sec MILLENNIUM Comment: Transfusion Committee Guidelines: INR less than 2.0, PTT less than OR equal to 43.5 seconds, or Fibrinogen greater t pompa or equal to 100 mg/dl indicate adequate procoagulant activity for hemos tasis in patients without underlying bleeding disorders. INR 1.1 0.9 - 1.1 CERNER MILLENNIUM Specimen Anatomical Collection Method Collection Time Receive d Time (Source) Location / / Volume Laterality Blood specimen 10/19/2014 8:00 PM 015 8:21 (specimen) EDT PM EDT Resulting Agency Comment Spec In Lab Petar Arriola MD HEMATOLOGY ORDERABLES Performing Organization Address City/State/ZIP Code Phon e Number [place] [phone] CERNER MILLENNIUM XR pelvis [...] Organization Address City/State/[place] [address] CERNER MILLENNIUM Cell Count Body Fluid Hip, Left (10/19/2014 2:25 PM EDT) Patholo gist Method Time Signature Spec Type BF Hip, Left CERNER MILLENNIUM Color BF [place] CERNER MILLENNIUM Appearance BF Slightly CERNER Cloudy [...] Organization Address City/State/ZIP Code Phon e Number [address] [facility] POCT Glucose (10/19/2014 11:45 AM EDT) athologist Signature POC Glucose 106 65 - 199 CERNER mg/dL [facility] Comment: Supplemental ranges: <140 mg/dL before meals <180 mg/dL all other times of the day Specimen Anatomical Collection Method Collection Time Receive d Time (Source) Location / / Volume Laterality Blood specimen 10/19/2014 11:45 5 (specimen) AM EDT 11:45 AM EDT Petar Arriola MD POINT OF CARE TEST ORDERABLE S Performing Organization Address City/State/ZIP Code Phon e Number [address] [facility] documented in this encounter Visit Diagnoses Diagnosis 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 Arriola) - Primary Hip joint replacement by other means documented in this encounter Administered Medications Inactive Administered Medications - up to 3 most recent administrations Medication Order MAR Action Action Date Dose Rate Site acetaminophen (TYLENOL) tablet Given 10/22/2014 6:40 AM EDT 1,00 0 mg 1,000 mg 1,000 mg, Oral, EVERY 8 HOURS SCHEDULED, First dose on Sat10/19/14 at 1700, Until Discontinued, Maximum dose of acetaminophen is 4000 mg from all sources in 24 hours., Routine Given 10/21/2014 8:35 PM EDT 1,000 mg Given 10/21/2014 3:36 PM EDT 1,000 mg acetaminophen (TYLENOL) tablet 650 mg Given 10/19/2014 12:31 PM EDT 650 mg 650 mg, Oral, ONCE, 1 dose, On Sat10/19/14 at 1230, Administer on arrival in Same Day Program, Day of Surgery (Day of Procedure), Routine bisacodyl (DULCOLAX) EC tablet 10 mg Given 10/21/2014 8:28 AM EDT 10 mg 10 mg, Oral, 2 TIMES DAILY PRN, Starting on Sat10/19/14 at 1810, Until Sat10/22/14 at 1507, Constipation, Administer if needed per patient's routine or if no bowel movement within 48 hours to achieve: 1) One bowel movement at least every 48 hours, AND 2) Without straining. If multiple bowel medications ordered, consider adding bisacodyl if polyethylene glycol (MIRALAX), docusate/senna, or lactulose not sufficient., Routine ceFAZolin (ANCEF) 1g in dextrose 5% Given 10/20/2014 8:26 AM EDT 1,000 mg 100 mL/hr 50mL 1,000 mg (1 g), Intravenous, EVERY 8 HOURS, 3 doses, First dose on Sat10/19/14 at 1700, Last dose on Sat10/20/14 at 0900, Administer over 30 Minutes, Adjust to 4 hours from intraoperative dose. * Beta-lactam based antibiotics (eg. Ampicillin, Cefazolin, Aztreonam) should be administered within 4 hours of the preceding intraoperative dose. * Vancomycin, Flouroquinolones, Clindamycin, Gentamicin, and Metronidazole should be administered within 8 hours of the preceding intraoperative dose., Recovery (Recovery-Hospital Unit), Indication for (Active or Suspected): Prophylaxis Given 10/20/2014 12:25 AM EDT 1,000 mg 100 mL/hr Given 10/19/2014 5:30 PM EDT 1,000 mg 100 mL/hr celecoxib (CeleBREX) capsule 200 mg Given 10/22/2014 8:40 AM EDT 200 mg 200 mg, Oral, 2 TIMES DAILY, First dose on Sat10/19/14 at 2100, Until Discontinued, Routine Given 10/21/2014 8:35 PM EDT 200 mg Given 10/21/2014 8:28 AM EDT 200 mg celecoxib (CeleBREX) capsule 400 mg Given 10/19/2014 12:31 PM EDT 400 mg 400 mg, Oral, ONCE, 1 dose, On Sat10/19/14 at 1230, Administer on arrival to Same Day Program, Day of Surgery (Day of Procedure), Routine esomeprazole (NexIUM) capsule 20 mg Given 10/22/2014 8:40 AM EDT 20 mg 20 mg, Oral, DAILY, First dose on Sat10/19/14 at 2000, Until Discontinued, Routine Given 10/21/2014 8:28 AM EDT 20 mg Given 10/20/2014 8:27 AM EDT 20 mg gabapentin (NEURONTIN) capsule 300 mg Given 10/19/2014 12:32 PM EDT 300 mg 300 mg, Oral, ONCE, 1 dose, On Sat10/19/14 at 1230, Administer on arrival in Same Day Program, Day of Surgery (Day of Procedure), Routine gabapentin (NEURONTIN) capsule 300 mg Given 10/21/2014 4:31 PM EDT 300 mg 300 mg, Oral, EVERY EVENING, First dose on Sat10/21/14 at 1700, Until Discontinued, Routine gabapentin (NEURONTIN) capsule 600 mg Given 10/20/2014 4:30 PM EDT 600 mg 600 mg, Oral, EVERY EVENING, 2 doses, First dose on Sat10/19/14 at 2000, Last dose on Sat10/20/14 at 1700, Routine Given 10/19/2014 8:35 PM EDT 600 mg HYDROmorphone (DILAUDID) tablet 2 mg Given 10/19/2014 12:32 PM EDT 2 mg 2 mg, Oral, ONCE, 1 dose, On Sat10/19/14 at 1230, Please give in pre-op holding prior to surgery., Day of Surgery (Day of Procedure), Routine ketorolac (TORADOL) injection 15 mg Given 10/20/2014 4:30 PM EDT 15 mg 15 mg, Intravenous, EVERY 6 HOURS SCHEDULED, 4 doses, First dose on Sat10/19/14 at 1700, Last dose on Sat10/20/14 at 1500, Routine Given 10/20/2014 8:28 AM EDT 15 mg Given 10/20/2014 3:08 AM EDT 15 mg lactated ringers infusion 1,000 mL New Bag 10/19/2014 3:25 PM EDT 1,000 mL, at 100 mL/hr, Intravenous, CONTINUOUS, Starting on Sat10/19/14 at 1230, Until Sat10/19/14 at 1642, Day of Surgery (Day of Procedure) New Bag 10/19/2014 1:33 PM EDT New Bag 10/19/2014 12:56 PM EDT 1,000 mLs 100 mL/hr losartan (COZAAR) tablet 50 mg Given 10/22/2014 8:40 AM EDT 50 mg 50 mg, Oral, DAILY, First dose on Sat10/20/14 at 0900, Until Discontinued, Routine Given 10/21/2014 8:29 AM EDT 50 mg multivitamin Hocx-Xf-CX-Min (THERAPEUTIC-M) Given 09/30 8:40 AM EDT 1 tablet 27-0.4 mg tablet 1 tablet 1 tablet, Oral, DAILY, First dose on Sat10/19/14 at 2000, Until Discontinued Given 10/21/2014 8:29 AM EDT 1 tablet Given 10/20/2014 8:28 AM EDT 1 tablet oxyCODONE (ROXICODONE) immediate release Given 10/20/2014 6:42 A M EDT 10 mg tablet 10 mg 10 mg, Oral, EVERY 4 HOURS PRN, Starting on Sat10/19/14 at 1642, Until Sat10/22/14 at 1507, Pain, moderate pain (4-6), For moderate pain (4-6)., Routine oxyCODONE (ROXICODONE) immediate release Given 10/22/2014 12:32 PM EDT 5 mg tablet 5 mg 5 mg, Oral, EVERY 4 HOURS PRN, Starting on Sat10/19/14 at 1642, Until Sat10/22/14 at 1507, Pain, mild pain (0-3), For mild pain (0-3)., Routine Given 10/22/2014 8:40 AM EDT 5 mg Given 10/21/2014 8:35 PM EDT 5 mg polyethylene glycol (MIRALAX) packet 17 g Given 10/21/2014 8:35 PM EDT 17 g 17 g, Oral, 2 TIMES DAILY, First dose on Sat10/19/14 at 2100, Until Discontinued, Routine Given 10/21/2014 8:27 AM EDT 17 g Given 10/20/2014 8:31 PM EDT 17 g rOPINIRole (REQUIP) tablet 0.25 mg Given 10/20/2014 12:36 PM EDT 0.25 mg 0.25 mg, Oral, 3 TIMES DAILY, First dose on Sat10/20/14 at 0900, Until Discontinued, Routine Given 10/20/2014 8:15 AM EDT 0.25 mg rOPINIRole (REQUIP) tablet 0.25 mg Given 10/22/2014 12:31 PM EDT 0.25 mg 0.25 mg, Oral, 5 TIMES DAILY, First dose (after last modification) on Sat10/20/14 at 1600, Until Discontinued, Routine Given 10/22/2014 8:40 AM EDT 0.25 mg Given 10/22/2014 1:51 AM EDT 0.25 mg senna-docusate (PERICOLACE) 8.6-50 mg per Given 2014 8:40 AM EDT 2 tablets tablet 2 tablet 2 tablet, Oral, 2 TIMES DAILY, First dose on Sat10/19/14 at 2100, Until Discontinued, Routine Given 10/21/2014 8:36 AM EDT 2 tablets Given 10/20/2014 8:32 PM EDT 2 tablets sodium chloride 0.9 % flush 5 mL Given 10/22/2014 8:41 AM EDT 5 mLs 5 mL, Intravenous, 2 TIMES DAILY, First dose on Sat10/19/14 at 2100, Until Discontinued, Recovery (Recovery-Hospital Unit), Routine Given 10/21/2014 8:35 PM EDT 5 mLs Given 10/21/2014 8:29 AM EDT 5 mLs sodium chloride 0.9% 500 mL IV bolus Given 10/20/2014 2:00 PM EDT Intravenous, ONCE, 1 dose, On Sat10/20/14 at 1400 sodium chloride 0.9% infusion New Bag 10/20/2014 1:33 PM EDT 1,000 mLs 100 mL/hr 1,000 mL, at 100 mL/hr, Intravenous, CONTINUOUS, Starting on Sat10/19/14 at 1700, Until Sat10/20/14 at 1644, Recovery (Recovery-Hospital Unit) Rate/Dose Verify 10/20/2014 7:00 AM EDT 1,000 mLs 100 mL/hr New Bag 10/20/2014 3:08 AM EDT 1,000 mLs 100 mL/hr warfarin (COUMADIN) tablet 2.5 mg Given 10/21/2014 4:31 PM EDT 2.5 mg 2.5 mg, Oral, ONCE, 1 dose, On Sat10/21/14 at 1700, Routine warfarin (COUMADIN) tablet 5 mg Given 10/19/2014 5:00 PM EDT 5 mg 5 mg, Oral, ONCE, 1 dose, On Sat10/19/14 at 1700, Routine warfarin (COUMADIN) tablet 5 mg Given 10/20/2014 4:30 PM EDT 5 mg 5 mg, Oral, ONCE, 1 dose, On Sat10/20/14 at 1700, Routine documented in this encounter Active and Recently Administered Medications Times are shown in EDT. Scheduled Medication Order 10/20/2014 10/21/2014 10/22/2014 acetaminophen (TYLENOL) tablet 1,000 mg 0642 (Given - Provider: Roxanne Beltran RN)1332 (Given - Provider: Stefania Lux RN)203 (Given - Provider: Roxanne Beltran RN) 0701 (Given - Provider: Luis Patel)1536 (Given - Provider: Scarlett Brian RN)2034 (Given - Provider: Roxanne Beltran RN) 0640 [...] Prophylaxis celecoxib (CeleBREX) capsule 200 mg (CANCELED) 0827 (G iven - Provider: Stefania Lux RN)2030 (Given - Provider: Roxanne Beltran RN) 0828 (Given - Provider: Scarlett Brian RN)2034 (Given - Provider: Roxanne Beltran RN) 0840 (Given - Provider: Scarlett Brian, ALINA) 200 mg, Oral, 2 TIMES DAILY, First dose on Sat10/19/14 at 2100, Until Discontinued, Routine esomeprazole (NexIUM) capsule 20 mg (CANCELED) 0827 (G iven - Provider: Stefania Lux RN) 0828 (Given - Provider: Scarlett Brian RN) 0840 (Give n - Provider: Scarlett Brian RN) 20 mg, Oral, DAILY, First dose on Sat at 2000, Until Discontinued, Routine gabapentin (NEURONTIN) capsule 300 mg (CANCELED) 1630 (Given - Provider: Scarlett Brian RN) 300 mg, Oral, EVERY EVENING, First dose on Sat10/21/14 at 1700, Until Discontinued, Routine gabapentin (NEURONTIN) capsule 600 mg (COMPLETED) 163 (Given - Provider: Stefania Lux RN) 600 mg, Oral, EVERY EVENING, 2 doses, Fi rst dose on Sat10/19/14 at 2000, Last dose on Sat10/20/14 at 1700, Routine ketorolac (TORADOL) injection 15 mg (COMPLETED) 307 ( Given - Provider: Roxanne Beltran RN)0828 (Given - Provider: Stefania Lux RN)1630 (Given - Provider: Stefania Lux RN) 15 [...] Sat at 0900, Until Discontinued, Routine multivitamin Gygl-Et-CZ-Min (THERAPEUTIC-M) 27-0.4 mg tablet 1 tablet 08 (Given - Provider: Stefania Lux RN) 0829 (Given - Provider: Scarlett Brian, ALINA) 0840 (Given - Provider: Scarlett Brian, ALINA) 1 tablet, Oral, DAILY, First dose on Sat10/19/14 at 2000, Until Discontinued, Routine polyethylene glycol (MIRALAX) packet 17 g 0828 (Given - Provider: Stefania Lux RN)2030 (Given - Provider: Roxanne Beltran RN) 0827 (Given - Provider: Scarlett Biran, ALINA)2034 (Given - Provider: Roxanne Beltran, ALINA) 0900 (Not Given - Provider: Scarlett Brian [...] RN) 0238 (Given - Provider: Miri Sandhu RN)08 (Given - Provider: Scarlett Brian RN)1154 (Given - Provider: Scarlett Brian, ALINA)153 (Given - Provider: Scarlett Brian, ALINA)2034 (Given - Provider: Roxanne Beltran RN) 015 (Given - Provider: Roxanne Beltran RN)0840 (Given - Provider: Scarlett Brian, ALINA)1231 (Given - Provider: Scarlett Brian RN) 0.25 mg, Oral, 5 TIMES DAILY, First dose on Sat10/20/14 at 1600, Until Discontinued, Routine senna-docusate (PERICOLACE) 8.6-50 mg per tablet 2 tab let (CANCELED) 0828 (Given - Provider: Stefania Lux RN)2031 (Given - Provider: Roxanne Beltran RN) 0836 (Given - Provider: Scarlett Brian RN)2034 (Not Given - Provider: Roxanne Beltran RN - Reason: See comment - Comment: lg bm x2) 0840 (Given - Provider: Scarlett Brian RN) 2 tablet, Oral, 2 TIMES DAILY, First dos e on Sat10/19/14 at 2100, Until Discontinued, Routine sodium chloride 0.9 % flush 5 mL (CANCELED) 08 (Give n - Provider: Stefania Lux RN)2031 (Given - Provider: Roxanne Beltran RN) 0829 (Given - Provider: Scarlett Brian RN)2034 (Given - Provider: Roxanne Beltran RN) 0841 (Given - Provider: Scarlett Brian RN) 5 mL, Intravenous, 2 TIMES DAILY, First dose on Sat10/19/14 at 2100, Until Discontinued, Recovery (Recovery-Hospital Unit), Routine sodium chloride 0.9% 500 mL IV bolus (COMPLETED) 1400 (Given - Provider: Stefania Lux RN) Intravenous, ONCE, 1 dose, Sat10/20/14 at 1400 warfarin (COUMADIN) tablet 2.5 mg (COMPLETED) 1631 (Given - Provider: Scarlett Brian RN) 2.5 mg, Oral, ONCE, 1 dose, Regla 10/21/14 at 1700, Routine warfarin (COUMADIN) tablet 2.5 mg 2.5 mg, Oral, ONCE, 1 dose, Sat10/22/14 at 1700, Routine warfarin (COUMADIN) tablet 5 mg (COMPLETED) 1630 (Give n - Provider: Stefania Lux RN) 5 mg, Oral, ONCE, 1 dose, Sat10/20/14 at 1700, Routine Continuous Medication Order 10/20/2014 10/21/2014 10/22/2014 sodium chloride 0.9% infusion () 0308 (New Bag - Provider: Roxanne J Whitfield, RN)0700 (Rate/Dose Verify - Provider: Roxanne Beltran RN)1333 (New Bag - Provider: Stefania Lux RN) 1,000 mL, at 100 mL/hr, Intravenous, CON TINUOUS, Starting Sat10/19/14 at 1700, Until Sat10/20/14 at 1644, Recovery (Recovery-Hospital Unit) PRN Medication Order 10/20/2014 10/21/2014 10/22/2014 bisacodyl (DULCOLAX) EC tablet 10 mg (CANCELED) 0828 (Given - Provider: Scarlett Brian, ALINA) 10 mg, Oral, 2 TIMES DAILY PRN, [...] (See Alternative - Provider: Roxanne Beltran RN) 0359 (See Alternative - Provider: Roxanne Beltran RN)0827 (See Alternative - Provider: Scarlett Brian RN)1535 (See Alternative - Provider: Scarlett Brian RN)203 (See Alternative - Provider: Roxanne Beltran RN) 0840 (See Alternative - Provider: Scarlett Brian, ALINA)1232 (See Alternative - Provider: Scarlett Brian, ALINA) 10 mg, Oral, EVERY 4 HOURS PRN, Starting Sat10/19/14 at 1642, Until Sat10/22/14 at 1507, Pain, moderate pain (4-6), For moderate pain (4-6)., Routine oxyCODONE (ROXICODONE) immediate release tablet 5 mg 0 642 (See Alternative - Provider: Roxanne Beltran RN)2030 (Given - Provider: Roxanne Beltran RN) 035 (Given - Provider: Roxanne Beltran RN)0827 (Given - Provider: Scarlett Brian, ALINA)1535 (Given - Provider: Scarlett Brian RN)2035 (Given - Provider: Roxanne Beltran RN) 0840 (Given - Provider: Scarlett Brian, ALINA)1232 (Given - Provider: Scarlett Brian, ALINA) 5 mg, Oral, EVERY 4 HOURS PRN, Starting Sat10/19/14 at 1642, Until Sat10/22/14 at 1507, Pain, mild pain (0-3), For mild pain (0-3)., Routine documented in this encounter Care Teams Bindery Assistant Relationship Specialty Start Date End Date Nayla Galan MD PCP - General 12/13/11 10/25/15 [address] [place] [address] documented as of this encounter
--- OUTSIDE RECORDS SUMMARY | 2021-10-09 21:47 | XMS_ITS | Encounter Summary ---
:1940 [place] [address] Care Team Providers Name Role Phone Nayla Caputo MD Primary Care Provider Encounter Details Date Type Department Care Team Description 09/20/2014 Clinical Support Same Day at [facility] [place] [place] [address] Social History Tobacco Use Types Packs/Day [...] Sign Reading Time Taken Comments Blood Pressure - - Pulse 69 09/20/2014 12:29 PM EDT Temperature - - Respiratory Rate - - Oxygen Saturation 99% 09/20/2014 12:29 PM EDT Inhaled Oxygen Concentration - - Weight 81.6 kg (180 lb) 09/20/2014 12:29 PM EDT Height 160 cm (5' 2.99) 09/20/2014 12:29 PM EDT Body Mass Index 31.89 09/20/2014 12:29 PM EDT documented in this encounter Progress Notes Monet Beal RN - 09/20/2014 1:24 PM EDT PAT questionnaire reviewed with patient and while in Pre Admission testing. Pt has toleratedanesthesia in the past without difficulty. Pre- operative instruction booklet reviewed. Patient verbalizes a good understanding of all information reviewed. PLAN: Testing: Type and screen, other labs, urine, pt with EKG 05/28/14 in scanned docs Special medication instructions: Procedure date: 10/19/14 documented in this encounter Plan of Treatment Not on filedocumented as of this encounter Visit Diagnoses Not on filedocumented in this encounter Care Teams Glycerin Operator Relationship Specialty Start Date End Date Nayla Caputo MD PCP - General 12/13/11 10/25/15 [address] [place] [address] documented as of this encounter
--- OUTSIDE RECORDS SUMMARY | 2021-10-09 21:47 | XMS_ITS | Encounter Summary ---
:1940 Author Organization [facility] [address] Care Team Providers Name Role Phone Nayla Caputo MD Primary Care Provider Reason for Visit Reason Onset Date Comments Questions 08/19/2014 S/P explant Left hip joint prosthesis and placement of antibiotic-impregnat ed cement spacer, 06/23/14 (Dr. Arriola). Encounter Details Date Type Department Care Team Description 08/19/2014 Telephone Orthopaedics at [facility] Swetha Dempsey, Questions (S/P explant [facility] María [place] [address] prosthesis and [phone] placement of antibiotic-impr egnated cement spacer, 06/23/14 (Dr. Arriola) . ) Social History Tobacco Use Types Packs/Day Years [...] this encounter Miscellaneous Notes Telephone Encounter - Swetha Dempsey RN - 08/19/2014 5:22 PM EDT Surgery: S/P explant Left hip joint prosthesis and placement of antibiotic- impregnated cement spacer, 06/23/14 (Dr. Arriola). I spoke with the patient and her daughter, Mitzi. Patient has a golf sized lump on the left outer thigh close to the lower portion of the incision. The lump looks and feels like the previous two lumps she had that were infected. We want someone to take a look at her. Afebrile. Patient has a history of abscesses associated with her surgeries. Patient was scheduled to see Dr. Arriola 08/20/14 at 9am with no x-rays. documented in this encounter Plan of Treatment Not on filedocumented as of this encounter Visit Diagnoses Not on filedocumented in this encounter Care Teams Database Manager Relationship Specialty Start Date End Date Nayla Caputo MD PCP - General 12/13/11 10/25/[address] [place] [address] documented as of this encounter
--- OUTSIDE RECORDS SUMMARY | 2021-10-09 21:47 | XMS_ITS | Encounter Summary ---
:1940 Author Organization [place] [address] Care Team Providers Name Role Phone Nayla Caputo MD Primary Care Provider Encounter Details Date Type Department Care Team Description 09/30/2014 Telephone [place]ed[place] [facility] Swetha Dempsey, [place] [address] Social History Tobacco Use Types Packs/Day [...] encounter Miscellaneous Notes Telephone Encounter - Swetha Dempsey, RN - 09/30/2014 1:35 PM EDT Pertinent Arthroplasty History: 1. Left MILTON 05/14/12 Dr. Monte ([facility]) 2. I+D Left hip wound 05/01/13, Dr. Monte 3. I+D and vac placement 07/07/13, Dr. Monte 4. R MILTON September 21, 2009 Dr. Monte 5. S/P Dr. Arriola s/p Left hip explant and antibiotic spacer on 06/23/2014. MSSA treated with Ceftriaxone. I spoke with Ms. Palma. She reported that she has had a problem since her hip aspiration on 09/20/14. She reported that her ambulation has been more difficult and has had to use the walker more. She complains of thigh muscle soreness. She denies fever/chills, no redness or swelling, no injury/accident. She is concerned that her surgery is not for another 3 weeks. She is scheduled to see Dr. Arriola 10/04/14. documented in this encounter Plan of Treatment Not on filedocumented as of this encounter Visit Diagnoses Not on filedocumented in this encounter Care Teams Director [employer] Engineering Relationship Specialty Start Date End Date Nayla Caputo MD PCP - General 12/13/11 10/25/[address] [place] [address] documented as of this encounter
--- OUTSIDE RECORDS SUMMARY | 2021-10-09 21:48 | XMS_ITS | Encounter Summary ---
:1940 Author Organization [facility] Address [facility] [place] [address] Care Team Providers Name Role Phone Nayla Caputo MD Primary Care Provider Reason for Visit Reason Comments Follow-up Aftercare, Oracle Database Architect Use Meds Encounter Details Date Type Department Care Team Description 07/29/2014 Office Visit Infectious Disease at [facility], Left hip prosthetic [facility] [place] Tian joint infection, [facility] sub sequent encounter Drive [place] [facility] [address] MEDICINE [phone] [place], [place] [address] Social History Tobacco Use Types Packs/Day Years Used Date Never Smoker Smokeless Tobacco: Never Used Alcohol Use Standard Drinks/Week Comments Yes 0 (1 standard drink = 0.6 oz pure alcoho l) occasionally Alcohol Habits Answer Date Recorded How [...] Sign Reading Time Taken Comments Blood Pressure 143/71 07/29/2014 10:08 AM EDT Pulse 77 07/29/2014 10:08 AM EDT Temperature 36.8 ??C (98.2 ??F) 07/29/2014 10:08 AM EDT Respiratory Rate 16 07/29/2014 10:08 AM EDT Oxygen Saturation - - Inhaled Oxygen Concentration - - Weight 80.5 kg (177 lb 8 oz) 07/29/2014 10:08 AM EDT Height - - Body Mass Index 31.44 06/23/2014 11:13 AM EDT documented in this encounter Progress Notes Tian Hankins MD - 07/29/2014 9:07 PM EDT INFECTIOUS DISEASE FELLOW INPATIENT CONSULT NOTE Reason for Consult: We are seeing Marcia Palma for the 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 female with pmhx of type 2 diabetes, hypertension,hyperlipidemia, and restless legs syndrome s/p right MILTON and left MILTON may 2012 post operatively patient did well until a year after left MILTON developed skin infection s/p I and D in Apr 2013 initiated on po keflex for prophylaxis.Later patient had another skin infection at the left hip s/p I and D with wound vac placement inApr2013,continued on po keflex.Reportedly wound healed,all the while patient did not have any pain in the joint.She was referred to orthopedic clinic as there was concern for PJI (inflammatory markers were elevated) and for consideration of possible explantation.[place] [facility] [place] was evaluated by orthopedic team s/p OR on 06/23/14 intra operatively found to have gross purulence upon incising IT band.Pus tracked from joint through sinus in IT band and up towards skin. Skin dimpling excised from old draining sinus s/p explantation with antibiotic spacer placement,cultures from OR yielding MSSA.Initially on vancomycin later switched to Iv cefazolin and discharged to rehab center with a plan to change cefazolin to iv ceftriaxone when she goes home for a total of 6 weeks(06/23-07/05/14). Patient presented to ID clinic for follow up. ROS: General: denies fever, chills, sweats, change in weight, rash or itching HEENT: denies headache, change in vision or hearing, tinnitus, epistaxis, sore throat CVS: denies chest pain, palpitations, pedal edema, orthopnea Pulm: denies shortness of breath, DUNN, wheezes, cough GI: denies abdominal pain, nausea/vomiting, constipation, diarrhea, anorexia : denies hematuria, dysuria, frequency, nocturia MS: denies arthralgias, myalgias Neuro: denies focal weakness, parasthesias, gait instability Psych: denies mood disorder, sleep disturbance PMH Past Medical History Diagnosis Date ??? Lumbar degenerative disc disease 12/13/2011 ??? Left hip pain 01/17/2012 Allergies Allergies Allergen Reactions ??? Amoxicillin Rash Patient states no reaction to this medication ??? Augmentin [Amoxicillin-Pot Clavulanate] Rash ??? Penicillins Patient states no reaction to this medication ??? Pravastatin Other (See Comments) Loss of muscle and body ??? Simvastatin Other (See Comments) Loss of muscle & body ??? Aspirin Other (See Comments) Change mental statis Pertinent Medications: Iv cefazolin 2 gm every 8 hrs(start date 06/23/14) SoHx: No recent travel, no alcohol, no smoking, no drugs No pets Family History Not contributory to current condition Physical Exam (24 hrs): Temp: [36.8 ??C (98.2 ??F)] Heart Rate: [77] BP: (143)/(71) Resp: [16] SpO2: -- Gen: Not in acute distress. HEENT: PERRLA. Pulm: B/L AE+ Cardio: RRR, no M/G/R. GI: Abd S/ND/NT Neuro: AAOX3,no fnd Ext:left hip well healed surgical scar,no drainage,ROM wnl Labs Lab Results Component Value Date WBC 7.79* 07/26/2014 RBC 3.27* 06/27/2014 HGB 9.6* 07/26/2014 HCT 32.5* 07/26/2014 MCV 82.6 06/27/2014 MCH 25.7* 06/27/2014 MCHC 31.1* 06/27/2014 PLATELET 227* 07/26/2014 RDWCV 17.5* 06/27/2014 Lab Results Component Value Date NA 142* 07/26/2014 K 3.8* 07/26/2014 CL 102 06/27/2014 CO2 26 06/27/2014 Lab Results Component Value Date BUN 13* 07/19/2014 CREATININE 0.8* 07/19/2014 Lab Results Component Value Date ALT 7 06/24/2014 AST 14 06/24/2014 ALKPHOS 58 06/24/2014 BILITOT 0.2 06/24/2014 CRP-07/26/14-2.8 ESR-07/26/14-40 Micro: No new micro data Imaging: No new imaging Impression: Marcia Palma is a 74 y.o. 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 Currently she denies any symptoms,surgical wound is healing well and inflammatory markers are trending down so we recommend to continue current therapy for total of 6 weeksand then stop antibiotics Recommendation: Continue IV cefazolin 2 gm every 8 hrs to finish total of 6 weeks Monitor CBC,ESR and CRP Orthopedic clinic f/u Patient can have her PICC line pulled out at the current facility she is residing in after completing current IV antibiotic therapy ID service will sign off for now,please call [phone] with questions Case discussed with ID attending Dr.Parsonnet Tian Hankins MD, Fellow, Infectious Disease Pager [phone] ID Attending I reviewed the patient's history with Dr. Hankins during the visit and I agree with his history, as detailed above. In brief, we are following this 74 y.o. 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 The hip was explanted in its entirety on June 23, since which time Ms. Palma has been on cefazolin. She presents today doing well. She has not had any difficulties with her PICC line, nor with her antibiotic infusions. She is eager to go home, with the q8h dosing of cefazolin being the only thing keeping her in the rehab facility. I interviewed and examined the patient myself, and my examination confirms Dr. Hankins's findings. Dr. Hankins's assessment and plan were formulated in discussion with me at the time of the visit, and I agree with them as documented. We see no reason to deviate from the plan, which is to treat for six weeks following explantation of the prosthesis and then stopping. Ms. Palma could complete the remainder of her course with once-daily ceftriaxone (2 grams once daily), if this would facilitate her early discharge from the rehab center. Ms. Palma understands the plan with regard to re-assessment prior to placing a new prosthesis. We have not scheduled the patient to see us again, but we would be happy to do so should she or her providers have questions or concerns. I spent a total of 25 minutes of [id number] time with the patient, 15 minutes of which were spent in counseling her about the status of her infection and our suggestions for continued management. documented in this encounter Plan of Treatment Not on filedocumented as of this encounter Visit Diagnoses Diagnosis Left hip prosthetic joint infection, sub sequent encounter documented in this encounter Care Teams Chemical Plant Technical Director Relationship Specialty Start Date End Date Nayla Caputo MD PCP - General 12/13/11 10/25/15 [address] [place] [address] documented as of this encounter
--- OUTSIDE RECORDS SUMMARY | 2021-10-09 21:48 | XMS_ITS | Encounter Summary ---
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, initial encounter Petar Arriola Andrews, MD Mary-Margaret, MD [facility] [place] [address] [place] [address] Fax: Referral ID Status Reason Start Date Expiration Date Visits V isits Requested Authorized [id number] Closed Assume 06/25/2014 06/25/2015 3 3 Subset of Care Encounter Details Date Type Department Care Team Description 06/23/2014 - Hospital Encounter 3 [place] Marina Arriola, 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 with presence of antibiotic- impregnated cement spacer, left; 06/27/2014 [facility] Petar Sanz MD Infection of prosthetic total hip joint, initial encounter [facility] [address] [facility] [place], [place] SURGERY [address] [place], [place] [phone] [id number] Social History Tobacco Use Types Packs/Day Years [...] Sign Reading Time Taken Comments Blood Pressure 129/55 06/27/2014 8:53 AM EDT Pulse 101 06/27/2014 8:53 AM EDT Temperature 37.1 ??C (98.8 ??F) 06/27/2014 8:53 AM EDT Respiratory Rate 16 06/27/2014 8:53 AM EDT Oxygen Saturation 95% 06/27/2014 8:53 AM EDT Inhaled Oxygen Concentration - - Weight 82.1 kg (181 lb) 06/23/2014 11:13 AM EDT Height 160 cm (5' 3) 06/23/2014 11:13 AM EDT Body Mass Index 32.06 06/23/2014 11:13 AM EDT documented in this encounter Discharge Summaries Rick Bains - 06/24/2014 4:11 PM EDT Discharge Summary Patient Name: Dinesh Peña Patient Age: 74 y.o. Language: Mongolian Race: White Ethnicity: Not nor Admit date: 06/23/2014 Discharge date and time: 06/27/2014 Attending Physician: Petar Arriola MD Discharge Physician: Petar Arriola MD Follow-up Recommendations for Providers: See discharge instructions for additional details. Future Appointments Date Time Provider Department Center 07/30/2014 10:10 AM Petar Arriola MD [facility] None Inpatient Provider Contact Information: Petar Arriola MD Joints: [phone] After hours and weekends, call [facility] Broach Operator, , and have the Orthopedic resident paged. Discharge Diagnoses (Hospital Problems) and Secondary Diagnoses (Chronic Problems): Active Hospital Problems Diagnosis ??? S/P explant Left hip joint prosthesis and placement of antibiotic- impregnated cement spacer, 06/23/14 (Dr. Arriola) Resolved Hospital Problems Diagnosis Date Resolved No resolved problems to display. Active Non-Hospital Problems Diagnosis ??? Retinal detachment ??? Anemia ??? Rosacea ??? DM (diabetes mellitus), type 2 ??? Hypertension (HTN) ??? HLD (hyperlipidemia) ??? Restless leg syndrome ??? 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 Left hip pain ??? Lumbar degenerative disc disease Operations/Major Procedures: 06/23/2014 Surgeon(s) and Role: * Petar Arriola MD - Primary * Ranulfo Canchola MD Procedure(s): @TOTAL HIP PROSTHESIS, REMOVAL MODIFIER PROSTALAC DEPUY PICC line placement: 06/26/14 Catheter type: PICC Lot number: [id number] Procedure Technique: Skin was prepped with chlorhexidine. Skin preparation agent was completely dry at the time of first skin puncture. The following barrier precaution methods were used:large sterile drape, maske/eye shield, large sterile gown, sterile gloves and cap. 2 ml of 1% Lidocaine was used for skin wheal. Ultrasound was used for guidance. Radiographic contrast agent WAS NOT injected for vein identification. Procedure Details: Order received for catheter placement. A 4 Fr. single lumen Bard catheter was placed into the left basilic vein over a 0.018 inch guidewire using modified seldinger technique and fluoroscopy. Arm circumference was 37 cm at 2 cm above the insertion site. Final catheter length (with trimming): 39 cm Internal: 39 cm External: 0 cm Tip in SVC per Dr. Ca. The line was not placed over a guidewire. History of Presentation: Dinesh Peña is a 74 y.o. female who underwent a left total hip replacement by Dr. Vo at [facility] in 05/2012. She had issues with wound drainage postoperatively and underwent multiple irrigations and debridement. She was subsequently referred to one of my partners, Dr. Samm Wisdom who aspirated her knee and it grew out MSSA. She was placed on Keflex prophylactically and was subsequently transferred to my care due to the complexity of her case. I had multiple discussions with her in the clinic about various treatment options including lifetime suppression. She felt that shecould not live with an infection in her joint knowing it was there. She had no symptoms of systemic disease and then suppressed from on Keflex. She did undergo an eye procedure and her instrument repair specialist did not want her to delay any more surgical intervention until at least May. She had remained on suppressive antibiotics in the interim without symptoms. We discussed the merits of different treatmentoptions including two-stage explant and later revision. After the risks and benefits were discussed with her and family, informed consent was obtained. Hospital Course: The patient was admitted via Same Day Surgery for the above operation. DVT prophylaxis was: Coumadin x6 weeks. Infectious disease was consulted for assistance with antibiotic selectionand management. Patient began rehab on POD#1 for partial weight bearing 50% of left leg and reinforcement of the MILTON Precautions. Sandoval was removed on POD#1 and patient was voiding spontaneously. On POD#4 the dressing was dry and intact and was benign. Patient did have a bowel movement prior to discharge and was passing flatus and was taking a diet without difficulty. Her pain was well managed on oral medications. By POD#4 the patient was medically stable and was cleared for safe discharge to rehab per PT. Of Note: 1. To assist with the administration of IV antibiotics a PICC line was placed on 06/26/14 (see above for details of line). 2. OPAT was also consulted to assist with home care administration of IV antibiotics as well as monitoring. 3. Infectious Disease: Impression: Dinesh Peña is a 74 y.o. female with above mentioned comorbidities p/w left hip wound which was present for many months and was draining recently closed was referred to [facility] orthopedic clinic for evaluation of possible PJI as inflammatory markers were elevated s/p eval by ortho team was taken to ORon 06/23/14 s/p explant and antibiotic spacer placement,intro operatively gross purulence was visualized.Cultures yielded Nafcillin susceptible staph aureus.We would recommend to start iv cefazolin and stop Iv vancomycin.Ms Peañ could have had PJI to begin with which could have presented as initial skin/soft tissue infection and continued as draining sinus. Recommendation: Stop iv vancomycin(no e/o MRSA) Start Iv cefazolin 2 gm every 8 hrs F/u OR cultures Duration of therapy would be 6 weeks (start date is 06/23/14- day of explant) Will involve OPAT team in care of the patient 4. Nutrition: A: Pt seen for low PAB of 7. Pt is ordering appropriately with the assistance of daily visit from a patient support assistant. Pt reports that she is eating nearly everything on her meal trays. Pt reports thatshe is also drinking most/all of the Boost Glucose Control supplements coming with meal trays. Discussed between meal snack options, pt declined the need at this time. Pt did not have any questions/concerns regarding nutrition at this time. Encouraged pt to contact Food and Nutrition services with anyquestions that may arise. P: Continue current diet, CHO2 Continue Boost Glucose Control TID, each provides 250kcal and 14g protein biology laboratory assistant will continue to see pt daily for assistance with meal choices Nutrition to follow throughout hospital stay 5. Endocrine Diabetes Management team: Assessment: Patient is a 74 y.o. years old female with PMH significant for DM (Last A1C of 6.6) who was admittedon 06/23/2014 for infection of left hip prothesis . Diabetes very well controlled and complicated by infection. Currently with variability of blood glucose levels while hospitalized requiring adjustmentof insulin regimen and DM medications. She has enjoyed excellent control of her diabetes. Even in the setting of infection and surgery she has required minimal insulin correction. When she resumes her metformin it should be enough to control her BG levels. I have recommended she check her BG levels at least 2 times per day until this infection is resolvedand she has recovered from surgery explaining the delayed wound healing and infection risk with hyperglycemia. I asked her to call her PCP if BG > 200 more than 2 times in 1 week. I called in a refill of 60 strips One touch to her pharmacy. Plan: 1.Increase BG monitoring to twice daily when she goes home. Call PCP if BG > 200 twice in 1 week. 2. Resume metformin when ok by primary team. 3. Continue sensitive sliding scale at minimum 4 times daily while in hospital or rehab. Vital Signs at Discharge: Weight: Wt Readings from Last 1 Encounters: 06/23/14 82.101 kg (181 lb) Height: Ht Readings from Last 1 Encounters: 06/23/14 160 cm (5' 3) HC: HC Readings from Last 1 Encounters: No data found for HC BMI: Body mass index is 32.07 kg/(m^2). Last value Range last 24 hrs Temperature Temp: 37.1 ??C (98.8 ??F) Temp: [36.8 ??C (98.2 ??F)-37.3 ??C (99.1 ??F)] Heart Rate Heart Rate: 101 Heart Rate: [90-103] Blood Pressure BP: 129/55 mmHg BP: (114-149)/(48-69) Respiratory Rate Resp: 16 Resp: [16-18] SpO2 SpO2: 95 % SpO2: [94 %-97 %] Art BP BP (Arterial Line): -- Functional and Cognitive Status: Patient mobilizing with walker, cognitively intact at baseline mental status at time of discharge. Important Studies and Lab Data: Labs: Last 3 wbc, hgb, hct plt Recent Labs 06/27/14 0355 06/26/14 0358 06/25/14 1501 WBC 10.2* 9.7 10.9* HGB 8.4* 8.6* 9.2* HCT 27.0* 27.4* 29.1* PLATELET 331 302 326 Last 3 Lytes Recent Labs 06/27/14 03506/26/14 0358 06/25/14 0338 NA 140 140 135 K 4.3 4.2 3.7 CL 102 102 100 CO2 26 25 23 BUN 14 14 13 CREATININE 0.76 0.77 0.94 Last 3 LFTs Recent Labs 06/24/14 1156 AST 14 ALT 7 ALKPHOS 58 BILITOT 0.2 BILIDIR 0.1 Last Ca, Mg, Phos Recent Labs 06/27/14 035 CALCIUM 8.2* Last 3 Coags Recent Labs 06/27/14 0355 06/26/14 0358 06/25/14 0338 PT 23.5* 24.2* 21.7* INR 1.9* 2.0* 1.8* Last 3 HgbA1C Recent Labs 06/14/14 1140 HA1C 6.6* Last CRP, SEDRATE Recent Labs 06/14/14 1140 CRP 88.5 SEDRATE 94* Studies: Xr Pelvis 06/23/2014 FINDINGS: Previous left hip arthroplasty components have been removed. There is new cemented left hip prosthesis, without a metallic acetabular cup or screws, that appears well seated. No immediate post arthroplasty complication such as fracture is identified. Adjacent postoperative soft tissue changes and cutaneous surgical berkley are noted. No appreciable change in the imaged portion of the right hip arthroplasty. IMPRESSION: No immediate post arthroplasty complication identified. Transfusions: Yes, 2 units of PRBC, 06/24 date, MARCELLUS Hgb 6.2 06/25 2u RBC 6.2 Discharge Conditions/Prognosis: Stable, awake, and alert. Mobilizing with walker, pain controlled onoral medications. Discharge to: Rehab Updated Allergies/ADRs: Allergies Allergen Reactions ??? Amoxicillin Rash Patient states no reaction to this medication ??? Augmentin [Amoxicillin-Pot Clavulanate] Rash ??? Penicillins Patient states no reaction to this medication ??? Pravastatin Other (See Comments) Loss of muscle and body ??? Simvastatin Other (See Comments) Loss of muscle & body ??? Aspirin Other (See Comments) Change mental statis Immunizations Given this Hospitalization: Immunization History Administered Date(s) Administered ??? Influenza Vaccine, Whole 01/26/2005, 01/23/2006 ??? Pneumococcal Polyvalent 23 11/17/2004 Discharge Medications: Your Medications New Medications Dose Details * bisacodyl 5 mg Tbec Commonly known as: DULCOLAX Take 2 tablets by mouth 2 times daily as needed for Constipation. 10 mg Quantity: 30 tablet Refills: 0 * bisacodyl 10 mg Supp Commonly known as: DULCOLAX Place 1 suppository rectally daily as needed. 10 mg Quantity: 60 suppository Refills: 3 Blood Sugar Diagnostic Strp Commonly known as: ONETOUCH ULTRA TEST Use as instructed Quantity: 60 each Refills: 3 ceFAZolin 2 gram/50 mL Pgbk Commonly known as: ANCEF Inject 50 mLs into the vein every 8 hours for 38 days. 2 g Refills: 0 cyclobenzaprine 10 mg Tab Commonly known as: FLEXERIL Take 1 tablet by mouth 3 times daily as needed for Muscle spasms. 10 mg Quantity: 30 tablet Refills: 0 diaZEPam 2 mg Tab Commonly known as: VALIUM Take 1 tablet by mouth every 6 hours as needed. 2 mg Quantity: 30 tablet Refills: 0 esomeprazole 20 mg Cpdr Commonly known as: NexIUM Take 1 capsule by mouth daily. 20 mg Quantity: 30 capsule Refills: 12 lactulose 20 gram/30 mL Soln Commonly known as: CHRONULAC Take 30-60 mLs by mouth daily as needed. 30-60 mL Refills: 0 oxyCODONE 10 mg Tab Take 0.5-1 tablets by mouth every 4 hours as needed for Pain (take 5mg for moderate pain (4-6) or 10mg for severe pain (7-10)). 5-10 mg Quantity: 90 tablet Refills: 0 polyethylene glycol 17 gram Pwpk Commonly known as: MIRALAX Take 17 g by mouth 2 times daily. 17 g Quantity: 14 each Refills: 0 warfarin 5 mg Tab Commonly known as: COUMADIN Take 0-2 tablets by mouth daily. Take as directed by your rehab physician. Goal INR 2-3. Take for 6 weeks from surgery (August 04). 0-10 mg Refills: 0 * Notice: This list has 2 medication(s) that are the same as other medications prescribed for you. Read the directions carefully, and ask your doctor or other care provider to review them with you. Continued medications with new dosing Dose Details acetaminophen 500 mg Tab Commonly known as: TYLENOL Take 2 tablets by mouth every 8 hours. What changed: when to take this 1000 mg Quantity: 30 tablet Refills: 1 Continued medications, unchanged Dose Details CALCIUM+D ORAL Take 600 mg by mouth daily. 600 mg Refills: 0 gabapentin 300 mg Cap Commonly known as: NEURONTIN Take 1 capsule by mouth nightly. 300 mg Quantity: 90 capsule Refills: 12 lactobacillus Cap Commonly known as: BACID Take 1 tablet by mouth daily. 1 tablet Refills: 0 losartan 50 mg Tab Commonly known as: COZAAR Take 50 mg by mouth daily. 50 mg Refills: 0 metFORMIN 500 mg Tab Commonly known as: GLUCOPHAGE Take 500 mg by mouth 2 times daily (with meals). 500 mg Refills: 0 RED YEAST RICE ORAL Take 1,200 mg by mouth 2 times daily. 1200 mg Refills: 0 senna 8.6 mg Tab Commonly known as: SENOKOT Take 2 tablets by mouth every evening. 2 tablet Refills: 0 VITAMIN B-12 1,000 mcg Tab Take 1,000 mcg by mouth daily. Generic drug: cyanocobalamin 1000 mcg Refills: 0 STOPPED Medications Cephalexin 500 mg Tab hydroCODone-acetaminophen 10-325 mg Tab Commonly known as: NORCO Smoking Status at Discharge: History Smoking status ??? Never Smoker Smokeless tobacco ??? Never Used Instructions for Rehab Providers or PCP: 1. Anticoagulation: COUMADIN. a. PT/INR to dose coumadin every Mon and Thurs or per your routine. Coumadin dose today at 5pm = 5mg. Will continue coumadin for 6 weeks. Last day = 08/04. b. If the INR level is ever above 3.5 patient should not participate in aggressive Physical therapy exercises - can mobilize/ambulate. This will decrease the possibility of more bleeding into the joint. Once the INR is less than 3.5 Physical therapy can be resumed. c. When the patient is discharged from rehab to home please [facility] a copy [facility] the [facility] - [phone]. 2. Activity: Enhanced: Partial weight bearing 50% as tolerated using walker/crutches at all times [...] not to cross their legs. 3. Wear TERRI hose to knees bilaterally - remove at least once per day to inspect skin. 4. Diet: Carb Control but increase fluids and fiber while on narcotic pain meds. 5. [place]/Sutures: Staple/suture removal 11-14 days after surgery (approximately 07/07). 6. Dressing (Mepilex): See patient discharge instructions. 7. Shower: (Mepilex) yes but lightly pat the operative dressing dry if it becomes wet. DO NOT submerge the dressing/incision. 8. Aggressive bowel regimen - LBM = 06/26/14. 9. Physical therapy/Ocupational therapy twice a day 7 days per week. 10. FSBG AC&HS 11. Antibiotic and lab work: Antibiotic: Cefazolin 2 gms IV q8h Start date: 06/23/2014 Anticipated stop date: 08/04/2014 Labs: Every Saturday: CBC, CMP, ESR, high sensitivity CRP Please FAX results to: OPAT Program Infectious Disease Section [facility] [place], [place] [address] FAX: After hours, please contact the Infectious Disease Physician vehicle calibration engineer at . Instructions Given to Patient at Discharge: General Instructions Activity: 1. You can partial weight bear (50%) on your Left leg using a walker or crutches at all times for balance and protection. 2. Remember your hip precautions: Enhanced: DO NOT flex the operative leg more than 90 degrees. DO NOT cross your legs. USE a raised seating / toilet seat. Use a pillow or the Abduction pillow between your legs to remind you not to cross your legs. 3. Wear the TERRI hose bilaterally to your lower legs until you are seen in followup. You should remove these at least once per day to inspect your skin. Anticoagulation follow-up: You are being discharged home on Coumadin??, see below for instructions. Coumadin?? (warfarin) Management upon Discharge: ??? Reason for anticoagulation therapy: DVT (blood clot) prevention after Orthopedic surgery ??? Your Coumadin?? (warfarin) dosing instruction upon discharge is: ??? Day of discharge (06/27/14): 5 mg (1 of the 5mg pills) ??? Your next INR is scheduled on: 06/28/14- this will be checked at rehab. ??? It is very important that you have your PT/INR checked regularly as your dose may change based on your lab values, at least twice per week (usually every Saturday and ). ??? INR Goal: 2 - 3 ??? Expected duration of treatment: 6 weeks (last day = 08/04/14) After your dose on 08/04, stop the Coumadin??. ??? Provider/Team responsible for ongoing outpatient anticoagulation management: ??? Provider/Team/Clinic: [facility] ? If you have not received a call from your provider, by 4pm, after having your INR drawn, please call the Orthopedic Clinic Nurse at [phone] for further dose instructions. If it is after 5pm oron the weekends, the Orthopedic resident vehicle calibration engineer will be managing your dosing (please call [phone] and ask for them to be paged). ??? Warfarin (Coumadin??) should be taken at the same time every day, usually at 5pm. The following table shows your most recent INR results and Coumadin?? doses: Date Notes INR Coumadin?? (mg) 06/23 day of operation - 5 06/24 POD#1 1.2 5 06/25 POD#2 1.8 2.5 06/26 POD#3 2.0 2.5 06/27 D/C POD#4 1.9 5mg (Take at rehab) ??? If your INR level is ever [...] not take or discontinue any prescription or ildr-naf-qtbogdc medications without asking your doctor or pharmacist [...] not stop or occur more often Diet: usual but increase your intake of fluids and fiber while you are on narcotic pain meds to prevent constipation Driving: None until you are cleared to do so by your orthopedic surgeon. You should not drive while you are on narcotic pain meds as they can affect your judgement and reaction time. Call your surgeon with any questions/concerns. Medications: 1. The pain medication you are on can cause constipation so increase your intake of fluids and fiberwhile you are on them. The stool softener, Sennakot, that has been prescribed can also be taken to facilite a bowel movement. You can also take an grpq-afg-zxnhwry medication, miralax if needed to combat constipation. 2. If you need a renewal on your narcotic pain medication, you need to give the Orthopedic clinic enough time to process your request. This can take up to three days, so plan accordingly. 3. Continue the Tylenol around the clock for the next 10 days, (July 03). This can be effective incontrolling pain along with your other medications. Do not take more than 3,000 mg of Tylenol in 24 hours. 4. You have been discharged on oxycodone. Take the Oxycodone - one -two tablets (5-10 mg) every 4 hours for pain. You will be on this medication for a limited period of time only. Take only enough painmedication to control your pain. As your pain lessens, taper down and off these medications as tolerated. 5. You have been discharged with a prescription for Gabapentin, to be taken at night for sleep for the next 4 weeks. Instructions for Antibiotics and Lab Work: Antibiotic: Cefazolin 2 gms IV q8h Start date: 06/23/2014 Anticipated stop date: 08/04/2014 Labs: Every Saturday: CBC, CMP, ESR, high sensitivity CRP Shower: 1. You can shower but remember your activity limitations and always have a chair available for balance and protection. DO NOT submerge the dressing/incision. 2. (Mepilex) Do not let water run over the operative dressing. If it becomes wet lightly pat the dressing dry. DO NOT submerge the incision. 3. If you have berkley/sutures always cover them with a waterproof dressing or plastic bag when showering until they are removed. 4. After berkley/sutures are removed you can let water run gently over the incision. Wound (Mepilex): 1. Staple/suture removal 11-14 days after surgery (approximately 07/07). 2. Do not lift the edge of the Mepilex dressing to observe the incision, it will not re-adhere. Remove your dressing on 06/30/14. When it is removed you can leave the incision open to air or cover it with a light dressing. 3. If you have lots of drainage when you get home (and it is before 06/30/14), remove this dressing and replace it with dry sterile [...] your leg elevated as much as possible. Call your surgeon (#[phone]) if: ?? You have a fever > 101.5 or experience chills ?? Increased discharge from the incision ?? Any redness or swelling around the incision ?? Increased pain or change in the pain that is not controlled by your pain medications FOLLOW-UP APPOINTMENTS: 1. You will have followup appointments at [facility] as indicated below in Future Appointment and Orders. 2. You will have x-rays prior to your appointment so please come to Radiology, desk 3T, at 9:10 AM, 1 hour BEFORE your appointment for those x-rays on 07/30/2014. Future Appointments Date Time Provider Department Center 07/30/2014 10:10 AM Petar Arriola MD [facility] None If you have questions or concerns: Saturday through Saturday, 8 AM - 5 PM, please call Dr. Arriola's office at . If it is after 5 PM or on the weekend, please call and ask to speak with the Orthopedic resident on-call. Adult PICC Care Instructions: Access type Adult PICC line Flush protocol with medication infusion (SASH) Heparin concentration 10units/ml Before Med: 10ml Normal Saline After Med: 10ml Normal Saline THEN 3ml Heparin Additional lumens: Flush 2x's daily & prn 10ml Normal Saline THEN 3ml Heparin Flush protocol after blood withdrawal Before: 10ml Normal Saline Draw blood After: 20ml Normal Saline THEN 3ml Heparin Flush without med (each lumen) Flush 2x's daily & prn: 10ml Normal Saline THEN 3ml Heparin PICC line dressing Weekly and prn. Please use CHG or Bio Patch Catheter Occlusion management Instill reconstituted Cathflo 2mg per instillation (based on volume ofthe catheter lumen). May repeat x1 per occlusion incident. General Instructions: 1. Use positive pressure device for end cap. Change device once/week and prn 2. To obtain labs from lines, withdraw 2-3ml blood and discard prior to obtaining lab specimens. 3. Use vigorous push stop technique when flushing PICC Lines to crease turbulence in line and help maintain patency 4. Please notify OPAT Program ([phone]) whenever you are unable to withdraw blood. Future Appointments and Orders Future Appointments Provider Department Dept Phone 07/30/2014 10:10 AM Petar Arriola MD Orthopaedics [phone] [facility] Ortho, Health Question [facility] [phone] Future Orders Complete By Expires OPAT: Order / Recommendation for Post Discharge IV Antibiotic Management [SQV839 CPT(R)] As directed Process Instructions: If no progress note charted, please enter Clinical details in comments. Scheduling Instructions: Questions: ID Diagnosis: Septic Left MILTON; S/P Explant w/ Antibitoic Spacer Microorganisms being treated: MSSA Antibiotic Allergies: Amoxicillin, Augmentin, Penicillin Antibiotic (one line for each ABx): Cefazolin 2 gms IV q8h Start date: 06/23/2014 Anticipated stop date: 08/04/2014 Labs: Every Saturday: CBC, CMP, ESR, high sensitivity CRP Responsible Attending: Naomi Stewart MD Last documented weight (kg): 82.101 kg (181 lb) Last documented height (cm): 160 cm (5' 3) Referral for Outpatient Antibiotics [[id number] CPT(R)] As directed Process Instructions: Scheduling Instructions: Questions: Vendor / contact information: [facility] Patient location post discharge: home Service requested: IV abx Start date: Responsible MD post discharge contact info: PCP Primary Care Provider: STEVEN GALAN MD [phone] Discharge References/Attachments None documented in this encounter Discharge Instructions Discharge InstructionsRick Bains - 06/27/2014 11:31 AM EDT Activity: 1. You can partial weight bear (50%) on your Left leg using a walker or crutches at all times for balance and protection. 2. Remember your hip precautions: Enhanced: DO NOT flex the operative leg more than 90 degrees. DO NOT cross your legs. USE a raised seating / toilet seat. Use a pillow or the Abduction pillow between your legs to remind you not to cross your legs. 3. Wear the TERRI hose bilaterally to your lower legs until you are seen in followup. You should remove these at least once per day to inspect your skin. Anticoagulation follow-up: You are being discharged home on Coumadin??, see below for instructions. Coumadin?? (warfarin) Management upon Discharge: ??? Reason for anticoagulation therapy: DVT (blood clot) prevention after Orthopedic surgery ??? Your Coumadin?? (warfarin) dosing instruction upon discharge is: ??? Day of discharge (06/27/14): 5 mg (1 of the 5mg pills) ??? Your next INR is scheduled on: 06/28/14- this will be checked at rehab. ??? It is very important that you have your PT/INR checked regularly as your dose may change based on your lab values, at least twice per week (usually every Saturday and ). ??? INR Goal: 2 - 3 ??? Expected duration of treatment: 6 weeks (last day = 08/04/14) After your dose on 08/04, stop the Coumadin??. ??? Provider/Team responsible for ongoing outpatient anticoagulation management: ??? Provider/Team/Clinic: [facility] ? If you have not received a call from your provider, by 4pm, after having your INR drawn, please call the Orthopedic Clinic Nurse at [phone] for further dose instructions. If it is after 5pm oron the weekends, the Orthopedic resident vehicle calibration engineer will be managing your dosing (please call [phone] and ask for them to be paged). ??? Warfarin (Coumadin??) should be taken at the same time every day, usually at 5pm. The following table shows your most recent INR results and Coumadin?? doses: Date Notes INR Coumadin?? (mg) 06/23 day of operation - 5 06/24 POD#1 1.2 5 06/25 POD#2 1.8 2.5 06/26 POD#3 2.0 2.5 06/27 D/C POD#4 1.9 5mg (Take at rehab) ??? If your INR level is ever [...] not take or discontinue any prescription or bvgh-ucz-btkpbbk medications without asking your doctor or pharmacist [...] not stop or occur more often Diet: usual but increase your intake of fluids and fiber while you are on narcotic pain meds to prevent constipation Driving: None until you are cleared to do so by your orthopedic surgeon. You should not drive while you are on narcotic pain meds as they can affect your judgement and reaction time. Call your surgeon with any questions/concerns. Medications: 1. The pain medication you are on can cause constipation so increase your intake of fluids and fiberwhile you are on them. The stool softener, Sennakot, that has been prescribed can also be taken to facilite a bowel movement. You can also take an cmit-wgk-dllqvif medication, miralax if needed to combat constipation. 2. If you need a renewal on your narcotic pain medication, you need to give the Orthopedic clinic enough time to process your request. This can take up to three days, so plan accordingly. 3. Continue the Tylenol around the clock for the next 10 days, (July 03). This can be effective incontrolling pain along with your other medications. Do not take more than 3,000 mg of Tylenol in 24 hours. 4. You have been discharged on oxycodone. Take the Oxycodone - one -two tablets (5-10 mg) every 4 hours for pain. You will be on this medication for a limited period of time only. Take only enough painmedication to control your pain. As your pain lessens, taper down and off these medications as tolerated. 5. You have been discharged with a prescription for Gabapentin, to be taken at night for sleep for the next 4 weeks. Instructions for Antibiotics and Lab Work: Antibiotic: Cefazolin 2 gms IV q8h Start date: 06/23/2014 Anticipated stop date: 08/04/2014 Labs: Every Saturday: CBC, CMP, ESR, high sensitivity CRP Shower: 1. You can shower but remember your activity limitations and always have a chair available for balance and protection. DO NOT submerge the dressing/incision. 2. (Mepilex) Do not let water run over the operative dressing. If it becomes wet lightly pat the dressing dry. DO NOT submerge the incision. 3. If you have berkley/sutures always cover them with a waterproof dressing or plastic bag when showering until they are removed. 4. After berkley/sutures are removed you can let water run gently over the incision. Wound (Mepilex): 1. Staple/suture removal 11-14 days after surgery (approximately 07/07). 2. Do not lift the edge of the Mepilex dressing to observe the incision, it will not re-adhere. Remove your dressing on 06/30/14. When it is removed you can leave the incision open to air or cover it with a light dressing. 3. If you have lots of drainage when you get home (and it is before 06/30/14), remove this dressing and replace it with dry sterile [...] your leg elevated as much as possible. Call your surgeon (#[phone]) if: ?? You have a fever > 101.5 or experience chills ?? Increased discharge from the incision ?? Any redness or swelling around the incision ?? Increased pain or change in the pain that is not controlled by your pain medications FOLLOW-UP APPOINTMENTS: 1. You will have followup appointments at [facility] [place] as indicated below in Future Appointment and Orders. 2. You will have x-rays prior to your appointment so please come to Radiology, desk 3T, at 9:10 AM, 1 hour BEFORE your appointment for those x-rays on 07/30/2014. Future Appointments Date Time Provider Department Center 07/30/2014 10:10 AM Petar Arriola MD [facility] None If you have questions or concerns: Saturday through Saturday, 8 AM - 5 PM, please call Dr. Arriola's office at . If it is after 5 PM or on the weekend, please call and ask to speak with the Orthopedic resident on-call. Adult PICC Care Instructions: Access type Adult PICC line Flush protocol with medication infusion (SASH) Heparin concentration 10units/ml Before Med: 10ml Normal Saline After Med: 10ml Normal Saline THEN 3ml Heparin Additional lumens: Flush 2x's daily & prn 10ml Normal Saline THEN 3ml Heparin Flush protocol after blood withdrawal Before: 10ml Normal Saline Draw blood After: 20ml Normal Saline THEN 3ml Heparin Flush without med (each lumen) Flush 2x's daily & prn: 10ml Normal Saline THEN 3ml Heparin PICC line dressing Weekly and prn. Please use CHG or Bio Patch Catheter Occlusion management Instill reconstituted Cathflo 2mg per instillation (based on volume ofthe catheter lumen). May repeat x1 per occlusion incident. General Instructions: 1. Use positive pressure device for end cap. Change device once/week and prn 2. To obtain labs from lines, withdraw 2-3ml blood and discard prior to obtaining lab specimens. 3. Use vigorous push stop technique when flushing PICC Lines to crease turbulence in line and help maintain patency 4. Please notify OPAT Program ([phone]) whenever you are unable to withdraw blood. documented in this encounter Medications at Time of Discharge Medication Sig Dispensed Refills Start Date End Date gabapentin (NEURONTIN) Take 1 capsule by 90 capsule 12 2014 300 mg Capsule mouth nightly. senna (SENOKOT) 8.6 mg Take 2 tablets by 0 Tablet mouth every evening. cyanocobalamin Take 1,000 mcg by 0 (VITAMIN B-12) 1,000 mouth daily. mcg Tablet CALCIUM Take 600 mg by 0 CARBONATE/VITAMIN D3 mouth daily. (CALCIUM+D ORAL) metFORMIN (GLUCOPHAGE) Take 500 mg by 0 500 mg tablet mouth 2 times daily (with meals). acetaminophen Take 2 tablets by 30 tablet 1 06/27/2014/2 06/2014 (TYLENOL) 500 mg mouth every 8 Tablet hours. bisacodyl (DULCOLAX) 5 Take 2 tablets by 30 tablet 0 201409/20/2014 mg Tablet, Delayed mouth 2 times Release (E.C.) daily as needed for Constipation. bisacodyl (DULCOLAX) Place 1 60 suppository 3 06/27/2014 08/20/2014 10 mg Suppository suppository rectally daily as needed. ceFAZolin (ANCEF) 2 Inject 50 mLs into 0 06/28/19 15 08/02/2014 gram/50 mL Piggyback the vein every 8 hours for 38 days. cyclobenzaprine Take 1 tablet by 30 tablet 0 06/27/2014 (FLEXERIL) 10 mg mouth 3 times Tablet daily as needed for Muscle spasms. diaZEPam (VALIUM) 2 mg Take 1 tablet by 30 tablet 0 015 08/02/2014 Tablet mouth every 6 hours as needed. esomeprazole (NEXIUM) Take 1 capsule by 30 capsule 12 015 08/02/2014 20 mg Capsule, Delayed mouth daily. Release(E.C.) lactulose (CHRONULAC) Take 30-60 mLs by 0 015 08/02/2014 20 gram/30 mL Solution mouth daily as needed. oxyCODONE 10 mg Tablet Take 0.5-1 tablets 90 tablet 0 06/2708/02/2014 by mouth every 4 hours as needed for Pain (take 5mg for moderate pain (4-6) or 10mg for severe pain (7-10)). polyethylene glycol Take 17 g by mouth 14 each 0 06/28/19 15 10/18/2014 (MIRALAX) 17 gram 2 times daily. Powder in Packet warfarin (COUMADIN) 5 Take 0-2 tablets 0 06/28/19 15 08/04/2014 mg Tablet by mouth daily. Take as directed by your rehab physician. Goal INR 2-3. Take for 6 weeks from surgery (August 04). Blood Sugar Diagnostic Use as instructed 60 each 3 201406/28/2014 (ONETOUCH ULTRA TEST) Strip lactobacillus (BACID) Take 1 tablet by 0 08/02/2014 Capsule mouth daily. losartan (COZAAR) 50 Take 50 mg by 0 0 08/02/2014 mg Tablet mouth daily. RED YEAST RICE ORAL Take 1,200 mg by 0 08/02/2014 mouth 2 times daily. documented as of this encounter Progress Notes Patsy Shaikh RN - 06/27/2014 1:08 PM EDT Patient Name: Dinesh Peña Patient Age: 74 y.o. Birthdate: 1940 Admit date: 06/23/2014 Attending Physician: Petar Arriola MD PICC line on left arm still inplace. My assessment remains unchanged from my previous assessment. Ptdenies chest pain and shortness of breath. Discussed pain management with patient, pain tolerable. Pt medicated prior to discharge. Pt has all belongings. Pt received discharge summary. These were reviewed. All questions answered. Pt encouraged to call with questions or concerns. Discharge packet and prescriptions given to family to provide to [facility] rehab. Pt discharged to [facility] via family. Report called and given to [facility] @1145. Sri Braxton RN - 06/27/2014 12:45 PM EDT Office of Care Management/Clinical Design Manager (CRC)/Discharge Planning Note CRC Sri Braxton RN (pager [phone]) Patient: Dinesh Peña : 1940 (74 y.o.) Home: [facility] [id number]* LOS: 4 days Care reviewed with Dr. Rick Bains. Reviewed record and interviewed patient. Reviewed CRC role andservices accepted. ?? Anticipated barriers to discharge: None. Patient has accepted rehab bed offer from [facility] ([place], [place]) for today. Transfer packet is with chart. Family is hereto provide transport. ?? Identified patient/family concerns r/t discharge: None ?? Admission status: 06/03/14 IPI Order to Admit is appropriate for 06/23/14 surgery and signed by attending provider Dr. Petar Arriola. ?? Family involved in discharge planning: and several other family members are at the bedside, supportive, and involved in discharge planning. ?? PCP: STEVEN GALAN MD, Future Appointments Date Time Provider Department Center 07/30/2014 10:10 AM Petar Arriola MD [facility] None Plan: Care Management will continue to monitor progress, follow for continuity of care, and assist with discharge planning. Patient Active Problem List Diagnosis Code ??? [...] impregnated cement spacer, 06/23/14 (Dr. Arriola) V88.21 Sandy Wan - 06/27/2014 11:30 AM EDT Office of Care Management/Admissions Officer Patient Name: Dinesh Peña : 1940 Patient has been offered a Swing bed at [facility]. Family will transport around 12 PM. Please have MD call [phone] (Dr. Rojas) Please call Nursing Report to [phone] (Swati). Info to accompany patient: Narcotic Prescriptions Copies of Medication Administration Records and IV sheets for past 10 days. Plan: Admissions Officer will be available to the patient and CRC for further assistance. Patient will be discharged to: [id number] [place] [address] Sandy Wan Admissions Officer Ranulfo Canchola - 06/27/2014 6:03 AM EDT ORTHOPAEDIC PROGRESS NOTE SURGERY/ISSUE: s/p Left hip explant and antibiotic spacer on 06/23 Patient Active Problem List Diagnosis Code ??? [...] impregnated cement spacer, 06/23/14 (Dr. Arriola) V88.21 Past Medical History Diagnosis Date ??? Lumbar degenerative disc disease 12/13/2011 ??? Left hip pain 01/17/2012 Interval History: Patient slept for good portion of the night. She received flexeril, valium and oxycodone for leg spasms overnight with moderate effect. Denies CP/SOB/N/V Temp: [36.8 ??C (98.2 ??F)-36.9 ??C (98.4 ??F)] Heart Rate: [90-101] Resp: [16-18] BP: (114-145)/(47-62) SpO2: [94 %-97 %] I/O last 3 completed shifts: In: 4160 [P.O.:2950; I.V.:160; Blood:1050] Out: 1974 [Urine:1974] PE: Left LE Incisional vac taken down this morning, incision without erythema or drainage SITLT in DP/SP/T Firing EHL/TA/GC Foot WWP Lab Results Component Value Date WBC 10.2* 06/27/2014 RBC 3.27* 06/27/2014 HGB 8.4* 06/27/2014 HCT 27.0* 06/27/2014 PLATELET 331 06/27/2014 NA 140 06/27/2014 K 4.3 06/27/2014 CO2 26 06/27/2014 BUN 14 06/27/2014 CREATININE 0.76 06/27/2014 INR 1.9* 06/27/2014 XRAYS: AP pelvis shows Left hip cement arthroplasty spacer in good alignment A/P: Dinesh Peña is a 74 y.o. female s/p left hip explant and placement of abx spacer on 06/23 Post-operative Plan: (avoid IV narcotics) ?? 5-10 [...] Celebrex 200 mg po q 12 hours for 2 days (hx of CAD, renal insufficiency or diabetes) ?? Nexium 20mg qd x 2 weeks (or other PPI) ?? Zofran 4 mg po/iv q 8 hours PRN nausea ?? D/C Sandoval catheter ?? Nutrition consult ?? Diabetes consult ?? Abx changed to Cefazolin 2g q8h per ID recs; PICC line and OPAT in ?? Weight bearing status of operative extremity: partial 50% weight bearing. Enhanced hip precautions ?? Wound closure: Berkley need removal in 14 days ?? Dressing changes: Incisional Vac taken down this morning and Mepilex dressing in place ?? Follow-up Plan: As scheduled prior to surgery (approx. 5 weeks with x-rays) ?? Anticoagulation: Coumadin 6 weeks Dispo: Will likely go to swing bed today at [facility] now that Hgb remained stable Obdulia Shawna MARI Mars - 06/26/2014 4:24 PM EDT Occupational Therapy Treatment Note Visit #: 2 Patient Dx: Dinesh Peña is a 74 y.o. 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 Precautions/Special Considerations: Code: full code Activity: PWB 50% LLE; Enhanced precautions: No hip flexion past 90 degrees, no hip internal rotation past 10 degrees, no hip adduction past midline. Interval History: Picc line placed today; awaiting d/c to rehab S: I have to think about how to do it. re: sit to stand transfers. O: Patient seen for therapeutic activities and demonstrated the following: ?? Self-care: SBA washing hands and brushing teeth standing sink side. Mod A donning/doffing robe. ?? Functional Mobility: CGA sit to stand recliner to walker. CGA ambulating to/from bathroom with FWW; assist for wound vac. SBA static standing balance with limited UE support. CGA stand > sit transfer. ?? Cognition: pt alert and oriented. Able to recall precautions though needed 1 vc for compliance during functional transfer. Reluctant to participate in therapy due to family visiting; family very supportive and pt agreeable after review of OT goals and d/c plan. Pt making needs known. Good attentionto task. Following instructions. Receptive to recommendations. ?? Endurance: pt on RA with O2 saturation in mid 90's, HR 94 BPM. Pain: no c/o pain Education: Pt/family education ongoing for OT goals, d/c planning, safety awareness, precautions, and energy conservation; pt verbalizes and demonstrates understanding. Staff Communication: Patient status, treatment, and mobility recommendations discussed with nursing/other staff. A: Pt presents with decreased ability to perform self care and functional mobility independently dueto WB restrictions, wound vac, and hip precautions. Pt tolerated ambulating to the bathroom and completed simple BADL this afternoon with SBA. Pt demonstrates awareness of precautions though did need 1vc for compliance during transfers. Pt will benefit from ongoing therapeutic interventions to achieve pt's and therapy goals Occupational Therapy Goals: To be achieved by 06/30/14: 1. Patient will complete upper body sponge bathing while seated, once set up. 2. Patient will don pants with supervision. 3. Patient will ambulate to the bathroom with supervision, PWB 50% LLE, FWW. MET 4. Patient will consistently comply with enhanced precautions during ADL training. Total time spent with patient: 19 minutes Total timed interventions: 19 minutes; TE-F x 1 Pager: [phone] MARI Miranda Occupational Therapy Rehabilitation Department Gayatri Mayer, PT - 06/26/2014 2:59 PM EDT Physical Therapy Note Visit #3 Patient profile: Pt. is a 74 y.o. female admitted on 06/23/[address] Arriola, Petar Sanz MD for s/pleft hip explant and antibiotic spacer placement on 06/23/14 due to infection. Incisional Vac continuous x [address] Mepilex dressing. Needs PICC line placement and ID consulted for antibioticregimen. Social History: Patient lives with in a ranch style home. Stairs: 3 stairs to enter the home with one railing Baseline Mobility: using FWW, helped her in and out of the car Equipment at home: FWW, cane, crutches, raised toilet seat, shower chair Precautions/Special Considerations: 50% WB on LLE, enhanced hip precautions: no hip flexion >90 degrees, no hip adduction across the midline, and no hip internal rotation >10 degrees. Subjective: ???It feels better after you walk. It's just that I was asleep. I need to go to the bathroom first. Pt Received sleeping . Her said she had been asleep for some time and it was ok to wake her Objective: Patient demonstrating the following: Lying-sitting EOB twd The right with VC s not to twist and reach for bed railing with left U/E. Modassist provided by therapist (needs to work on getting left U/E behind her to push) ?? Sit > stand from bed w/ cues , she demonstrated ability to rise with close CGA while transitioning hands onto/off from walker. ?? She walked into BR ~10' , able to lower and rise from toilet w/ leverage points each side of toilet and able to wipe self in standing by letting go w/ 1 hand. ?? She then walked out of her room to [employer] cart (~15') and back to chair (~15), kqzq-ot-puqg gait pattern and cues for 50% wt and she demonstrated compliance (look @ my hands, their red from leaning on them so hard). ?? She finished session reclined in CC Pain: tolerable Education: Pt and family educated on enhanced hip precautions and 50% WB status. Precautions writtenon board in her room and on the handout she was given. Educated on how to enter/exit a car while maintaining hip precautions. There ex: exercises (ankle pumps, adductor sets and SAQ). Pt and family demonstrated/verbalized understanding. Patient status, treatment, and mobility recommendations discussed with nursing. Assessment: Pt tolerated activity much better, no lightheadedness . Pt has difficulty with functional mobility and transfers, secondary to decreased ROM, strength, endurance, and increased pain. Starting to walk short distances and getting use to PWB L LE. Today was first day able to walk to use toilet (vs commode). The pt would like to go home but she and spouse stating she'll need ABX 3x/day so realizes benefit from skilled facility for IV therapy services & physical therapy to maximize functional independence while in the hospital and to address limitations as noted above. Goals: To be achieved by 06/28. 1. Pt. to demonstrate knowledge of precautions and weight bearing limitations during functional activities. -educated on weight bearing limitations, precautions, & exercises but needs reinforcement 2. Pt. to demonstrate understanding of appropriate exercises. See above 3. Pt. to perform supine to sit/sit to supine transfers independently using the leg hall monitor. progressing 4. Pt. to perform sit to stand/stand to sit transfers independently. MET 5. Pt. to ambulate 75 feet with FWW independently using appropriate technique. Not met but progressing 6. Pt. to ambulate up/down 3 step/stairs with cane or crutch contact guard (pt will help herat home). Not met 7. Family or caregiver to demonstrate understanding of therapeutic interventions to support the careof the patient. Plan: Pt to be seen 2-3 times per week for therapy including Bed mobility, Transfers, Assistive device/technique, Stairs and Exercise. Equipment needs: No equipment needs; she has necessary equipment. Discharge Recommendations: Progressing twd rehab Total time spent with patient: 35 minutes Total timed interventions: 35 minutes TE-F, TE-S Gayatri Mayer, PT 06/26/2014 Pager: [phone] Physical Therapy Rehabilitation Department Patient seen and note written in conjunction with SUNI Quintanilla. KEYUR CHAMPAGNE, PT Pager#[phone] Sri Braxton RN - 06/26/2014 2:02 PM EDT Office of Care Management/Clinical Design Manager (CRC)/Discharge Planning Note CRC Sri Braxton RN (pager [phone]) Patient: Dinesh Peña : 1940 (74 y.o.) Home: [facility] [id number]* LOS: 3 days Care reviewed with Key Winkler APRN. Reviewed record and interviewed patient. Reviewed CRC role and services accepted. ?? Anticipated barriers to discharge: Patient has tentative bed offer from [facility] ([place], [place]) for Tuesday 06/27, dependent on H/H stability. Key Winkler APRN will order follow up H/H for Saturday AM draw. Transfer packet is with chart including demographics/insurance information. Family is staying in the area and are available to provide transport to [facility] on Tuesday 06/27. ?? Identified patient/family concerns r/t discharge: None ?? Admission status: 06/03/14 IPI Order to Admit for 06/23/14 surgery is appropriate and signed by attending provider Dr. Petar Arriola. ?? Family involved in discharge planning: Pat and other family members are at the bedside, supportive, and involved in discharge planning. ?? PCP: STEVEN GALAN MD, Future Appointments Date Time Provider Department Center 07/30/2014 10:10 AM Petar Arriola MD [facility] None Plan: Care Management will continue to monitor progress, follow for continuity of care, and assist with discharge planning. Patient Active Problem List Diagnosis Code ??? [...] impregnated cement spacer, 06/23/14 (Dr. Arriola) V88.21 Ranulfo Canchola - 06/26/2014 5:40 AM EDT ORTHOPAEDIC PROGRESS NOTE SURGERY/ISSUE: s/p Left hip explant and antibiotic spacer on 06/23 Patient Active Problem List Diagnosis Code ??? [...] impregnated cement spacer, 06/23/14 (Dr. Arriola) V88.21 Past Medical History Diagnosis Date ??? Lumbar degenerative disc disease 12/13/2011 ??? Left hip pain 01/17/2012 Interval History: Received 2u pRBC for low Hgb yesterday and responded appropriately. She received flexeril along with her valium and oxycodone at night, and she felt like that greatly improved her spasm pain and she was able to sleep most of the night. Denies CP/SOB/N/V Temp: [36.3 ??C (97.3 ??F)-36.8 ??C (98.2 ??F)] Heart Rate: [82-91] Resp: [16-20] BP: (93-133)/(39-54) SpO2: [92 %-96 %] I/O last 3 completed shifts: In: 3555 [P.O.:1920; I.V.:585; Blood:1050] Out: 1650 [Urine:1650] I/O this shift: In: 200 [P.O.:200] Out: 700 [Urine:700] PE: Left LE Incisional vac in place SITLT in DP/SP/T Firing EHL/TA/GC Foot WWP Lab Results Component Value Date WBC 9.7 06/26/2014 RBC 3.38* 06/26/2014 HGB 8.6* 06/26/2014 HCT 27.4* 06/26/2014 PLATELET 302 06/26/2014 NA 140 06/26/2014 K 4.2 06/26/2014 CO2 25 06/26/2014 BUN 14 06/26/2014 CREATININE 0.77 06/26/2014 INR 2.0* 06/26/2014 XRAYS: AP pelvis shows Left hip cement arthroplasty spacer in good alignment A/P: Dinesh Peña is a 74 y.o. female s/p left hip explant and placement of abx spacer on 06/23 Post-operative Plan: (avoid IV narcotics) ?? 5-10 [...] Celebrex 200 mg po q 12 hours for 2 days (hx of CAD, renal insufficiency or diabetes) ?? Nexium 20mg qd x 2 weeks (or other PPI) ?? Zofran 4 mg po/iv q 8 hours PRN nausea ?? D/C Sandoval catheter ?? Nutrition consult ?? Diabetes consult ?? Abx changed to Cefazolin 2g q8h per ID recs; will need PICC line for long- term therapy-to be placed today ?? Weight bearing status of operative extremity: partial 50% weight bearing. Enhanced hip precautions ?? Wound closure: [place] need removal in 14 days ?? Dressing changes: Incisional Vac at 75mmHg continuous x [address] Mepilex dressing ?? Follow-up Plan: As scheduled prior to surgery (approx. 5 weeks with x-rays) ?? Anticoagulation: Coumadin 6 weeks ?? Any possible barriers to discharge: Likely to require SNF ?? Plan for hospital stay: Needs PICC line, Needs consult from ID and Follow cultures ?? Anticipated Length of Stay: 3-4 days . Keyur Champagne, PT - 06/25/2014 4:21 PM EDT Physical Therapy Note Visit #2 Patient profile: Pt. is a 74 y.o. female admitted on 06/23/2014 by Petar Ahuja MD for s/pleft hip explant and antibiotic spacer placement on 06/23/14 due to infection. Incisional Vac continuous x [address] Mepilex dressing. Needs PICC line placement and ID consulted for antibioticregimen. PMH: Past Medical History Diagnosis Date ??? Lumbar degenerative disc disease 12/13/2011 ??? Left hip pain 01/17/2012 Past Surgical History Procedure Laterality Date ??? Removal of hip prosthesis, complex Left 06/23/2014 @TOTAL HIP PROSTHESIS, REMOVAL performed by Petar Arriola MD at [facility] MAIN OR ??? Left 06/23/2014 MODIFIER PROSTALAC DEPUY performed by Petar Arriola MD at [facility] MAIN OR Social History: Patient lives with in a ranch style home. Stairs: 3 stairs to enter the home with one railing Baseline Mobility: using FWW, helped her in and out of the car Equipment at home: FWW, cane, crutches, raised toilet seat, shower chair Precautions/Special Considerations: 50% WB on LLE, enhanced hip precautions: no hip flexion >90 degrees, no hip adduction across the midline, and no hip internal rotation >10 degrees. Subjective: ???I got some blood this morning girls.?? I could get up with you if I can use the toilet. Could I rest back in the bed when I'm done? Pt's reports the antibiotic needs to be given IV three times a day so they agree to go to skilled facility until she only needs the antibiotic once a day. Objective: Patient demonstrating the following: ?? Resting in recliner chair when I arrived, visiting with many family members in her room. ?? Family encouraged her to move and she was then agreeable as she needed to get up and use the BR also. ?? Sit > stand from recliner w/ cues to remind her to come to front edge and push from armrest vson walker, she demonstrated ability to rise with close CGA while transitioning hands onto/off from walker. ?? She walked into BR ~10' , able to lower and rise from toilet w/ leverage points each side of toilet and able to wipe self in standing by letting go w/ 1 hand. ?? She then walked out of her room to nurses med cart (~15') and back to bed (~10'), [id number] gait pattern and cues for 50% wt and she demonstrated compliance (look @ my hands, their red from leaning on them so hard). ?? She wanted to return to bed for a rest after walk. Able to back up with cues to reminder her to sisal picker feet turning and she demonstrated understanding (reminder of precautions during activity). ?? She practiced using leg hall monitor w/ L hand to assist L LE with cues and CGA to clear L heal over mattress. ?? Needs within reach once settled in bed, pillow between LE's. Pain: 0/10 when sitting in recliner chair, increase of pain during activity but reports better than yesterday. Education: Pt and family educated on enhanced hip precautions and 50% WB status. Precautions writtenon board in her room and on the handout she was given. Educated on how to enter/exit a car while maintaining hip precautions. Educated on exercises (heel slides, LAQ, glut sets, adductor sets, SAQ, DF/EV). Pt and family demonstrated/verbalized understanding. Patient status, treatment, and mobility recommendations discussed with nursing. Assessment: Pt tolerated activity much better, no lightheadedness after 2 units of blood transfused earlier today. Pt has difficulty with functional mobility and transfers, secondary to decreased ROM, strength, endurance, and increased pain. Starting to walk short distances and getting use to PWB L LE. Today was first day able to walk to use toilet (vs commode). The pt would like to go home but she and spouse stating she'll need ABX 3x/day so realizes benefit from skilled facility for IV therapy services & physical therapy to maximize functional independence while in the hospital and to addresslimitations as noted above. Goals: To be achieved by 06/28. 1. Pt. to demonstrate knowledge of precautions and weight bearing limitations during functional activities. -educated on weight bearing limitations, precautions, & exercises but needs reinforcement 2. Pt. to demonstrate understanding of appropriate exercises. See above 3. Pt. to perform supine to sit/sit to supine transfers independently using the leg hall monitor. 4. Pt. to perform sit to stand/stand to sit transfers independently. 5. Pt. to ambulate 75 feet with FWW independently using appropriate technique. 6. Pt. to ambulate up/down 3 step/stairs with cane or crutch contact guard (pt will help herat home). 7. Family or caregiver to demonstrate understanding of therapeutic interventions to support the careof the patient. Plan: Pt to be seen 2-3 times per week for therapy including Bed mobility, Transfers, Assistive device/technique, Stairs and Exercise. Patient agrees with plan as stated above. May give theraband exercises to improve ankle strength into eversion My left ankle wants to always turn in. Equipment needs: No equipment needs; she has necessary equipment. Discharge Recommendations: Pt would prefer discharge to home with VNA services. Will determine closer to discharge appropriate setting. Needs PICC line and ABX recommendations from ID service. Spouse states she'll need ABX 3x/day so that would be too much on them to go to infusion site that many times daily. Total time spent with patient: 35 minutes Total timed interventions: 35 minutes TRIXIE Champagne, PT 06/25/2014 Pager: [phone] Physical Therapy Rehabilitation Department Patient seen and note written in conjunction with SUNI Quintanilla. KEYUR CHAMPAGNE, PT Pager#[phone] Philly Matias RN - 06/25/2014 3:20 PM EDT Met with pt and family this afternoon and we discussed that the insurance has been evaluated and it is clarified that Federico Tran is a medicare supplemental insurance and will not fully IV abx at home. Pt and are agreeable to continue with pursuit for rehab stay at [facility] or [facility] and . We discussed that once pt is more mobile her preference will be to d/c to home after rehab and continue abx course as an out pt. They live very near [facility] and pt's PCP is located here as well. Nivia Kirby LD - 06/25/2014 1:33 PM EDT Nutrition Initial Note: S: Per pt: Eating well Appetite: Fair Chewing/Swallowing: No issues reported N/V: None reported Bowels: Last BM not documented O: Patient Active Problem List Diagnosis Code ??? [...] impregnated cement spacer, 06/23/14 (Dr. Arriola) V88.21 Past Medical History Diagnosis Date ??? Lumbar degenerative disc disease 12/13/2011 ??? Left hip pain 01/17/2012 Diet: CHO2 Admit Weight: 82.1 kg Estimated body mass index is 32.07 kg/(m^2) as calculated from the following: Height as of this encounter: 160 cm (5' 3). Weight as of this encounter: 82.101 kg (181 lb). Labs: Lab Results Component Value Date NA 135 06/25/2014 K 3.7 06/25/2014 CL 100 06/25/2014 CO2 23 06/25/2014 BUN 13 06/25/2014 CREATININE 0.94 06/25/2014 GLUCOSE 121 06/25/2014 MAGNESIUM 0.74 06/24/2014 CALCIUM 7.6* 06/25/2014 AST 14 06/24/2014 ALT 7 06/24/2014 ALKPHOS 58 06/24/2014 BILITOT 0.2 06/24/2014 BILIDIR 0.1 06/24/2014 CRP 88.5 06/14/2014 Medications: MVI, nexium, insulin, pericolace, miralax, others noted A: Pt seen for low PAB of 7. Pt is ordering appropriately with the assistance of daily visit from a patient support assistant. Pt reports that she is eating nearly everything on her meal trays. Pt reports thatshe is also drinking most/all of the Boost Glucose Control supplements coming with meal trays. Discussed between meal snack options, pt declined the need at this time. Pt did not have any questions/concerns regarding nutrition at this time. Encouraged pt to contact Food and Nutrition services with anyquestions that may arise. P: Continue current diet, CHO2 Continue Boost Glucose Control TID, each provides 250kcal and 14g protein biology laboratory assistant will continue to see pt daily for assistance with meal choices Nutrition to follow throughout hospital stay ZACHERY Loera Ranulfo Canchola - 06/25/2014 5:39 AM EDT ORTHOPAEDIC PROGRESS NOTE SURGERY/ISSUE: s/p Left hip explant and antibiotic spacer on 06/23 Patient Active Problem List Diagnosis Code ??? [...] impregnated cement spacer, 06/23/14 (Dr. Arriola) V88.21 Past Medical History Diagnosis Date ??? Lumbar degenerative disc disease 12/13/2011 ??? Left hip pain 01/17/2012 Interval History: Patient had late night muscle spasms. She experienced this in previous hip surgeries and is generally expecting them. She received her pain meds as well as some valium overnight with minimal improvement. Hgb was 6.3 this morning. Seen by consults yesterday and infectious disease planrecommended with PICC line placement and Cefazolin. Denies CP/SOB/N/V Temp: [36.8 ??C (98.2 ??F)-37.3 ??C (99.1 ??F)] Heart Rate: [66-116] Resp: [16-20] BP: (90-128)/(30-55) SpO2: [91 %-95 %] I/O last 3 completed shifts: In: 4331.3 [P.O.:240; I.V.:4091.3] Out: 2190 [Urine:1490; Blood:700] PE: Left LE Incisional vac in place SITLT in DP/SP/T Firing EHL/TA/GC Foot WWP Lab Results Component Value Date WBC 10.7* 06/25/2014 RBC 2.49* 06/25/2014 HGB 6.2* 06/25/2014 HCT 20.6* 06/25/2014 PLATELET 294 06/25/2014 NA 135 06/25/2014 K 3.7 06/25/2014 CO2 23 06/25/2014 BUN 13 06/25/2014 CREATININE 0.94 06/25/2014 INR 1.8* 06/25/2014 XRAYS: AP pelvis shows Left hip cement arthroplasty spacer in good alignment A/P: Dinesh Peña is a 74 y.o. female s/p left hip explant and placement of abx spacer on 06/23 Post-operative Plan: (avoid IV narcotics) Ordered 2u pRBC for low Hgb this morning. Added valium and muscle relaxant for PRN muscle spasm. ?? 5-10 mg Oxycodone Q 4 hours [...] Celebrex 200 mg po q 12 hours for 2 days (hx of CAD, renal insufficiency or diabetes) ?? Nexium 20mg qd x 2 weeks (or other PPI) ?? Zofran 4 mg po/iv q 8 hours PRN nausea ?? D/C Sandoval catheter ?? Nutrition consult ?? Diabetes consult ?? Abx changed to Cefazolin 2g q8h per ID recs; will need PICC line for long- term therapy ?? Weight bearing status of operative extremity: partial 50% weight bearing. Enhanced hip precautions ?? Wound closure: [place] need removal in 14 days ?? Dressing changes: Incisional Vac at 75mmHg continuous x [address] Mepilex dressing ?? Follow-up Plan: As scheduled prior to surgery (approx. 5 weeks with x-rays) ?? Anticoagulation: Coumadin 6 weeks ?? Any possible barriers to discharge: Likely to require SNF ?? Plan for hospital stay: Needs PICC line, Needs consult from ID and Follow cultures ?? Anticipated Length of Stay: 3-4 days . Zoe Branch RN - 06/24/2014 5:43 PM EDT I agree with [facility]'s nursing service director Jane Stahl, see doc flow for full assessment. 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 Pt has medicare and [employer] insurance. Met with pt and she is currently OOB in chair, has IVF infusing, has incisional VAC in place at thistime, on coumadin, 50 % WB, pt receiving IV vancomycin 1 GM BID ( 9am and 2100) for abx coverage, IDreferral in place. IV abx plan anticipated in light of gross presence of infection findings intra op. Met briefly with pt this am. She explains she is hoping to be able to go home at discharge and explains her has looked into having services at home. She would like to have family in on discussion for d/c, they will be here soon. We briefly discussed evaluating coverage for IV abx and pt is agreeable to eval and has no preference for vendor. [place], [place] or Services for home care thru: [facility] PHONE: [phone] FAX: [phone] Will initiate referral to evaluate coverage and continue to follow. Will f/u with family as well. Anticipate pt would consider [facility] rehab recommended By team but will continue to follow and update d/c plan as appropriate. Ranulfo Canchola - 06/24/2014 7:12 AM EDT ORTHOPAEDIC PROGRESS NOTE SURGERY/ISSUE: s/p Left hip explant and antibiotic spacer on 06/23 Patient Active Problem List Diagnosis Code ??? Lumbar degenerative disc disease 722.52 ??? Left hip pain 719.45 ??? 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 DM (diabetes mellitus), type 2 250.00 ??? Hypertension (HTN) 401.9 ??? HLD (hyperlipidemia) 272.4 ??? Restless leg syndrome 333.94 ??? 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 Anemia 285.9 ??? Rosacea 695.3 ??? 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 Lumbar degenerative disc disease 12/13/2011 ??? Left hip pain 01/17/2012 Interval History: Patient says she feels no pain in her left hip, just some muscle spasming in her left thigh. She is otherwise comfortable and rested well overnight. No major issues, pain well controlled, Denies CP/SOB/N/V Temp: [36.6 ??C (97.9 ??F)-37.1 ??C (98.8 ??F)] Heart Rate: [67-97] Resp: [10-20] BP: (96-150)/(42-63) SpO2: [93 %-100 %] I/O last 3 completed shifts: In: 3666.3 [I.V.:3666.3] Out: 1840 [Urine:1140; Blood:700] PE: Left LE Incisional vac in place SITLT in DP/SP/T Firing EHL/TA/GC Foot WWP Lab Results Component Value Date WBC 9.8 06/24/2014 RBC 2.94* 06/24/2014 HGB 7.3* 06/24/2014 HCT 23.8* 06/24/2014 PLATELET 295 06/24/2014 NA 138 06/24/2014 K 4.1 06/24/2014 CO2 25 06/24/2014 BUN 11 06/24/2014 CREATININE 0.61* 06/24/2014 INR 1.2* 06/24/2014 XRAYS: AP pelvis shows Left hip cement arthroplasty spacer in good alignment A/P: Dinesh Peña is a 74 y.o. female s/p left hip explant and placement of abx spacer on 06/23 Post-operative Plan: (avoid IV narcotics) ?? 5-10 [...] Celebrex 200 mg po q 12 hours for 2 days (hx of CAD, renal insufficiency or diabetes) ?? Nexium 20mg qd x 2 weeks (or other PPI) ?? Zofran 4 mg po/iv q 8 hours PRN nausea ?? D/C Sandoval catheter ?? Nutrition consult ?? Diabetes consult ?? Vancomycin until ID recs ?? ID consult ?? Weight bearing status of operative extremity: partial 50% weight bearing. Enhanced hip precautions ?? Wound closure: [place] need removal in 14 days ?? Dressing changes: Incisional Vac at 75mmHg continuous x [address] Mepilex dressing ?? Follow-up Plan: As scheduled prior to surgery (approx. 5 weeks with x-rays) ?? Anticoagulation: Coumadin 6 weeks ?? Any possible barriers to discharge: Likely to require SNF ?? Plan for hospital stay: Needs PICC line, Needs consult from ID and Follow cultures ?? Anticipated Length of Stay: 3-4 days . Associated attestation - Petar Arriola MD - 06/24/2014 9:42 AM EDT I have seen the patient and reviewed the resident's above history/physical and I agree with the details as written. The assessment and plan were formulated in discussion with me and I agree with them as documented. PETAR ARRIOLA MD, MS 06/24/2014 Swati Quarles RN - 06/23/2014 9:12 PM EDT Patient admitted to 316 via bed. Patient noted to be alert and oriented x3. Patient's lungs clear, heart rate regular, hypoactive bowel sounds. Patient's skin noted to be intact. Patient has a sandoval draining clear yellow urine. Patient noted to have a woundVAC to L hip. IV LR Infusing into LFA, site noted to be intact. Patient oriented to room, call meza, IS and FILLER OPERATOR. Patient reports pain to be 0/10. Patient aware to alert RN with any concerns. Diana Bae MD - 06/23/2014 8:22 PM EDT Orthopaedic Surgery Post-Op Check Note Surgery: Left total hip prosthesis removal Patient Active Problem List Diagnosis Code ??? Lumbar degenerative disc disease 722.52 ??? Left hip pain 719.45 ??? 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 DM (diabetes mellitus), type 2 250.00 ??? Hypertension (HTN) 401.9 ??? HLD (hyperlipidemia) 272.4 ??? Restless leg syndrome 333.94 ??? 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 Anemia 285.9 ??? Rosacea 695.3 S/Events: Denies CP, SOB, nausea, vomiting, abd pain. Pain well controlled. Denies paresthesia in lateral leftthigh. O: Vitals: Temp: [36.7 ??C (98.1 ??F)-37.1 ??C (98.8 ??F)] Heart Rate: [67-86] Resp: [12-20] BP: (102-120)/(51-62) SpO2: [97 %-100 %] I/O last 3 completed shifts: In: 2600 [I.V.:2600] Out: 1440 [Urine:740; Blood:700] Exam: General: NAD, awake/alert CV: RRR Resp: Breathing comfortably, lungs CTAB Abd: S/NT/ND LLE: Wound vac holding suction @75mmHG. Motor intact to EHL, FHL, TA. Sensation intact in foot/calf.Brisk capillary refill distally. Labs: No results for input(s): WBC, HGB, HCT, PLATELET, NA, K, CL, CO2, BUN, CREATININE in the last 72 hours. Imaging: Date: 06/23 - AP Pelvis No complications A/P: 74 y.o. year old female POD#0 s/p Left total hip prosthesis removal, progressing well with stable vitals and uop. - Orders reviewed - wound vac to suction 75mmHG - Vancomycin until ID recs Diana Bae MD [id number] Ambrose Camarena RN - 06/23/2014 7:03 PM EDT 1900 Hand of report from Cathleen Best RN. Patient denies pain. CWMS intact lower extremities. Lungs clear. Pulses palpable. 1999 Awaiting bed availability 2014 Unable to give report to receiving room, nurse not available 2024 Report called to receiving eddy documented in this encounter H&P Notes Petar Arriola MD - 06/23/2014 12:00 PM EDT Please see H&P note for visit documentation and PCP note under scanned documents from 05/27/2014 The patient's history and physical exam have been reviewed and completed. There has been no intervalchange from that of the pre-operative history and physical exam done within the last 30 days. documented in this encounter Procedure Notes Marko Bunch RN - 06/26/2014 10:27 AM EDTAssociated Order(s): PLACE PICC LINE: CONTACT VASCULAR ACCESS PICC/Midline Insertion Procedure Note Indications: Anti-infective This insertion was not to replace a malfunctioning catheter. This insertion was not due to a suspected line-associated infection. Location of Procedure: X-Ray Room 11 Risks and Benefits: The risks and benefits of this procedure were reviewed and informed consent was obtained obtained. Time Out: Prior to the start of the procedure, the patient's identity, intended procedure, site/side, correct patient positioning and presence of the site eryn was confirmed as applicable. The medical history and chart were reviewed to rule out potential contraindications to the planned procedure. Hand Hygiene: The civil division commander deputy sheriff did perform hand hygiene prior to line insertion. Catheter type: PICC Lot number: [id number] Procedure Technique: Skin was prepped with chlorhexidine. Skin preparation agent was completely dry at the time of first skin puncture. The following barrier precaution methods were used:large sterile drape, maske/eye shield, large sterile gown, sterile gloves and cap. 2 ml of 1% Lidocaine was used for skin wheal. Ultrasound was used for guidance. Radiographic contrast agent WAS NOT injected for vein identification. Procedure Details: Order received for catheter placement. A 4 Fr. single lumen Bard catheter was placed into the left basilic vein over a 0.018 inch guidewire using modified seldinger technique and fluoroscopy. Arm circumference was 37 cm at 2 cm above the insertion site. Final catheter length (with trimming): 39 cm Internal: 39 cm External: 0 cm Tip in SVC per Dr. Ca. The line was not placed over a guidewire. Post Procedure: Diagnosis: SEPTIC L HIP Blood return noted on aspiration of line after placement confirmed. 5 mls of normal saline infused free flowing to gravity via PICC after insertion. Sterile dressing applied: [id number]. Findings: The patient did tolerate the procedure well. No Complications. Procedure Comments: Two unsuccessful attempts on right arm , one in right basilic and one in right brachial. In both cases blood return obtained, but wire would not advance past about 6cm. Marko Bunch RN 06/26/2014 documented in this encounter Miscellaneous Notes Plan of Care - Donovan Love RN - 06/27/2014 6:18 AM EDT Problem: General Plan of Care Goal: Plan of Care Review Outcome: Ongoing (Interventions Implemented as Appropriate) 06/25/14 1149 06/26/14 0915 Plan of Care Review Plan of Care Outcome Status ongoing (interventions implemented as appropriate) -- Progress improving -- Coping/Psychosocial Response Interventions Plan of Care Reviewed with -- patient OUTCOME EVALUATION NOTE: OUTCOME SUMMARY: Pt denies pain except for spasms to LLE only occuring at night. Inadequate relief from Valium 2 mg po or Flexeril 5 mg po. Order obtained for Flexeril to be increased to 10 mg tonight. Wound vac to L hip intact, draining at 125 mmHg continuous suction. Pt voiding without difficulty. Pt anticipating possible dc home today. PLAN MOVING FORWARD: Pain control, mobilize, dc home INDIVIDUALIZED FALL PREVENTION: Assistance: OOB with walker and stand by assist Supervision: One assist with ADLs Surveillance: Aleks, hourly rounding. CPG GOAL OUTCOME EVALUATION: Goal: Individualization and Mutuality 06/24/14 1533 06/25/14415 Individualization Individualize the Plan of Care: -- pain medications frequently Patient Specific Preferences -- turning/repositioning, pain medications, valium Patient Specific Goals -- pain management, ambulate, void Mutuality/Individual Preferences What anxieties, fears or concerns do you have about your health or care? -- pain What questions do you have about your health or care? none -- What information would help us give you more personalized care? none -- Goal: Infection Control Outcome: Ongoing (Interventions Implemented as Appropriate) 06/25/14 1149 06/26/14 0915 Safety Interventions Isolation Precautions standard precautions maintained -- Infection Prevention blood glucose management;environmental surveillance;hydration promoted;nutrition promoted;promote handwashing;rest/sleep promoted -- Coping/Psychosocial Response Interventions Counseling -- goal setting facilitated;reassurance provided;understanding of situation facilitated Goal: Discharge Needs Assessment Outcome: Ongoing (Interventions Implemented as Appropriate) 06/25/14415 Discharge Needs Assessment Concerns to be Addressed no discharge needs identified Readmission Within the Last 30 Days no previous admission in last 30 days Equipment Needed After Discharge walker, rolling Current Health Outpatient/Agency/Support Group Needs homecare agency (specify level of care) Anticipated Changes Related to Illness inability to care for self Self-Care Equipment Currently Used at Home walker, rolling Living Environment Transportation Available family or friend will provide;car Problem: Skin Integrity Impairment, Risk/Actual (Adult, Obstetrics) Goal: Identify Signs and Symptoms and Related Risk Factors Signs and symptoms and related risk factors are identified upon initiation of Human Response Clinical Practice Guideline (CPG) Outcome: Ongoing (Interventions Implemented as Appropriate) 06/25/14415 Skin Integrity Impairment, Risk/Actual Physiological Related Risk Factors (Skin Integrity Impairment, Risk/Actual) infection Treatment Related Related Risk Factors (Skin Integrity Impairment, Risk/Actual) invasive catheters;medication;physical immobilization;surgery Goal: Skin Integrity/Wound Healing Patient will demonstrate the desired outcomes. Outcome: Ongoing (Interventions Implemented as Appropriate) 06/25/14 114 Skin Integrity Impairment, Risk/Actual (Adult, Obstetrics) Skin Integrity/Wound Healing making progress toward outcome Problem: Health Knowledge, Opportunity for Enhanced (Adult, NICU, Hoffman, Obstetrics, Pediatric) Goal: Identify Signs and Symptoms and Related Risk Factors Signs and symptoms and related risk factors are identified upon initiation of Human Response Clinical Practice Guideline (CPG) Outcome: Ongoing (Interventions Implemented as Appropriate) Problem: Pain, Acute (Adult, Obstetrics) Goal: Identify Signs and Symptoms and Related Risk Factors Signs and symptoms and related risk factors are identified upon initiation of Human Response Clinical Practice Guideline (CPG) Outcome: Ongoing (Interventions Implemented as Appropriate) 06/26/14 1821 Pain, Acute Related Risk Factors (Acute Pain) surgery Signs and Symptoms (Acute Pain) facial mask of pain/grimace;fatigue/weakness Goal: Acceptable Pain Control/Comfort Level Patient will demonstrate the desired outcomes. Outcome: Ongoing (Interventions Implemented as Appropriate) 06/26/14 1821 Pain, Acute (Adult, Obstetrics) Acceptable Pain Control/Comfort Level making progress toward outcome Plan of Care - Jahaira West RN - 06/26/2014 6:25 PM EDT Problem: General Plan of Care Goal: Plan of Care Review Outcome: Ongoing (Interventions Implemented as Appropriate) 06/25/14 1149 06/26/14 0915 Plan of Care Review Plan of Care Outcome Status ongoing (interventions implemented as appropriate) -- Progress improving -- Coping/Psychosocial Response Interventions Plan of Care Reviewed with -- patient OUTCOME EVALUATION NOTE: OUTCOME SUMMARY: Pts states good pain control with PO oxycodone and tylenol. Pt worked with PT/OT today. Ambulating 1-assist with a walker. Wound vac to left hip remains intact at 125 mmHg. Single lumen PICC placed to LUE. Pt had BM today. Plan for discharge when Hg stabilized. PLAN MOVING FORWARD: Pain control, mobilize, possible d/c to [facility] tomorrow. INDIVIDUALIZED FALL PREVENTION: Assistance: 1-assist with walker, Partial WB 50% LLE Supervision: Set-up/Hands-on with ADLs Surveillance: Merryo, hourly rounding CPG GOAL OUTCOME EVALUATION: Goal: Individualization and Mutuality Outcome: Ongoing (Interventions Implemented as Appropriate) 06/24/14 1533 06/25/14 0416 Individualization Individualize the Plan of Care: -- pain medications frequently Patient Specific Preferences -- turning/repositioning, pain medications, valium Patient Specific Goals -- pain management, ambulate, void Mutuality/Individual Preferences What anxieties, fears or concerns do you have about your health or care? -- pain What questions do you have about your health or care? none -- What information would help us give you more personalized care? none -- Goal: Infection Control Outcome: Ongoing (Interventions Implemented as Appropriate) 06/25/14 1149 06/26/14 0915 Safety Interventions Isolation Precautions standard precautions maintained -- Infection Prevention blood glucose management;environmental surveillance;hydration promoted;nutrition promoted;promote handwashing;rest/sleep promoted -- Coping/Psychosocial Response Interventions Counseling -- goal setting facilitated;reassurance provided;understanding of situation facilitated Goal: Discharge Needs Assessment Outcome: Ongoing (Interventions Implemented as Appropriate) 06/25/14 0416 Discharge Needs Assessment Concerns to be Addressed no discharge needs identified Readmission Within the Last 30 Days no previous admission in last 30 days Equipment Needed After Discharge walker, rolling Current Health Outpatient/Agency/Support Group Needs homecare agency (specify level of care) Anticipated Changes Related to Illness inability to care for self Self-Care Equipment Currently Used at Home walker, rolling Living Environment Transportation Available family or friend will provide;car Problem: Skin Integrity Impairment, Risk/Actual (Adult, Obstetrics) Goal: Identify Signs and Symptoms and Related Risk Factors Signs and symptoms and related risk factors are identified upon initiation of Human Response Clinical Practice Guideline (CPG) Outcome: Ongoing (Interventions Implemented as Appropriate) 06/25/14 0416 Skin Integrity Impairment, Risk/Actual Physiological Related Risk Factors (Skin Integrity Impairment, Risk/Actual) infection Treatment Related Related Risk Factors (Skin Integrity Impairment, Risk/Actual) invasive catheters;medication;physical immobilization;surgery Goal: Skin Integrity/Wound Healing Patient will demonstrate the desired outcomes. Outcome: Ongoing (Interventions Implemented as Appropriate) 06/25/14 1149 Skin Integrity Impairment, Risk/Actual (Adult, Obstetrics) Skin Integrity/Wound Healing making progress toward outcome Problem: Pain, Acute (Adult, Obstetrics) Goal: Identify Signs and Symptoms and Related Risk Factors Signs and symptoms and related risk factors are identified upon initiation of Human Response Clinical Practice Guideline (CPG) Outcome: Ongoing (Interventions Implemented as Appropriate) 06/26/141820 Pain, Acute Related Risk Factors (Acute Pain) surgery Signs and Symptoms (Acute Pain) facial mask of pain/grimace;fatigue/weakness Goal: Acceptable Pain Control/Comfort Level Patient will demonstrate the desired outcomes. Outcome: Ongoing (Interventions Implemented as Appropriate) 03/28/15 1821 Pain, Acute (Adult, Obstetrics) Acceptable Pain Control/Comfort Level making progress toward outcome Consult Note - Katy Rojas RN - 06/26/2014 9:02 AM EDT Infiltration/Extravasation Scale Instructions: Strikeout non-applicable grades, highlight the grade which applies to this patient by BOLD lettering and COLOR RED Edema 1 to 6 inches (2.5 to 15 cm) in any direction Cool to touch Infiltration of any amount of blood product, irritant, or vesicant Specific location of infiltration/extravasation LA infiltrate of ancelf. 10cm x 10cm erythema, induration. Outlined area was treated with hyalluronidase, continue rest heat and elevation. MD and bedside RN aware. Plan of Care - Donovan Love RN - 06/26/2014 6:49 AM EDT Problem: General Plan of Care Goal: Plan of Care Review Outcome: Ongoing (Interventions Implemented as Appropriate) 06/25/14 1149 Plan of Care Review Plan of Care Outcome Status ongoing (interventions implemented as appropriate) Progress improving Coping/Psychosocial Response Interventions Plan of Care Reviewed with patient OUTCOME EVALUATION NOTE: OUTCOME SUMMARY: Pt c/o muscle spasms in LLE, relieved with Flexeril. Wound vac to L hip intact at 125 mmHg continuous suction. Daughter at bedside. Pt voiding well, ambulating with walker and standby assist. PLAN MOVING FORWARD: Pain control, mobilzie, dc planning INDIVIDUALIZED FALL PREVENTION: Assistance: OOB with walker and standby assist Supervision: One assist with ADLs Surveillance: Aleks, hourly rounding. CPG GOAL OUTCOME EVALUATION: Goal: Individualization and Mutuality Outcome: Ongoing (Interventions Implemented as Appropriate) 06/24/14 1533 06/25/14 0416 Individualization Individualize the Plan of Care: -- pain medications frequently Patient Specific Preferences -- turning/repositioning, pain medications, valium Patient Specific Goals -- pain management, ambulate, void Mutuality/Individual Preferences What anxieties, fears or concerns do you have about your health or care? -- pain What questions do you have about your health or care? none -- What information would help us give you more personalized care? none -- Goal: Fall Prevention-Safe Patient Handling Outcome: Outcome (s) achieved Date Met: 06/26/14 06/25/1492606/25/142054 Safety Interventions Safety Precautions/Fall Reduction -- assistive device;environmental modification;fall reduction program maintained;family at bedside;nonskid shoes/slippers when out of bed;room near unit station Musculoskeletal Interventions Activity/Level of Assistance -- up in room;with walker;with stand by assist Positioning -- independent Muscle Strengthening activity/mobility promoted;mobility in bed promoted -- Flores Fall Risk History of Falling -- 0 Secondary Diagnosis -- 15 Ambulatory Aids -- 15 Intravenous Therapy/Heparin/Saline Lock -- 20 Gait/Transferring -- 10 Mental Status -- 0 Score -- 60 Activity and Safety Assistive Device -- Front wheel walker OTHER Flores Fall Risk -- High Goal: Infection Control Outcome: Ongoing (Interventions Implemented as Appropriate) 06/25/14 114 Safety Interventions Isolation Precautions standard precautions maintained Infection Prevention blood glucose management;environmental surveillance;hydration promoted;nutrition promoted;promote handwashing;rest/sleep promoted Coping/Psychosocial Response Interventions Counseling calming techniques promoted;emotional support provided Goal: Discharge Needs Assessment Outcome: Ongoing (Interventions Implemented as Appropriate) 06/25/14415 Discharge Needs Assessment Concerns to be Addressed no discharge needs identified Readmission Within the Last 30 Days no previous admission in last 30 days Equipment Needed After Discharge walker, rolling Current Health Outpatient/Agency/Support Group Needs homecare agency (specify level of care) Anticipated Changes Related to Illness inability to care for self Self-Care Equipment Currently Used at Home walker, rolling Living Environment Transportation Available family or friend will provide;car Problem: Skin Integrity Impairment, Risk/Actual (Adult, Obstetrics) Goal: Identify Signs and Symptoms and Related Risk Factors Signs and symptoms and related risk factors are identified upon initiation of Human Response Clinical Practice Guideline (CPG) Outcome: Ongoing (Interventions Implemented as Appropriate) 06/25/14415 Skin Integrity Impairment, Risk/Actual Physiological Related Risk Factors (Skin Integrity Impairment, Risk/Actual) infection Treatment Related Related Risk Factors (Skin Integrity Impairment, Risk/Actual) invasive catheters;medication;physical immobilization;surgery Goal: Skin Integrity/Wound Healing Patient will demonstrate the desired outcomes. Outcome: Ongoing (Interventions Implemented as Appropriate) 06/25/14 1149 Skin Integrity Impairment, Risk/Actual (Adult, Obstetrics) Skin Integrity/Wound Healing making progress toward outcome Problem: Health Knowledge, Opportunity for Enhanced (Adult, NICU, , Obstetrics, Pediatric) Goal: Identify Signs and Symptoms and Related Risk Factors Signs and symptoms and related risk factors are identified upon initiation of Human Response Clinical Practice Guideline (CPG) Outcome: Ongoing (Interventions Implemented as Appropriate) Plan of Care - Avery, Marina Polanco RN - 06/25/2014 3:57 PM EDT Problem: Health Knowledge, Opportunity for Enhanced (Adult, NICU, Hoffman, Obstetrics, Pediatric) Goal: Knowledgeable about Health Subject/Topic Patient will demonstrate the desired outcomes. Outcome: Outcome (s) achieved Date Met: 06/25/14 06/25/14 1557 Health Knowledge, Opportunity for Enhanced (Adult, NICU, Hoffman, Obstetrics, Pediatric) Knowledgeable about Health Subject/Topic achieves outcome Peripherally Inserted Central Catheter (PICC) Teaching Sheet Peripherally inserted central catheters (ypsv-ny-eusu) (PICC) are used when you need IV (intravenous) medicines and fluids. A catheter is a small flexible plastic tube. The catheter is put in through avein under your skin. A vein is a tube inside your body that carries blood from the body to the heart. The catheter is usually put into a vein on the inside of your upper arm. Then it is threaded up this vein and ends in the blood vessel near your heart. The PICC catheter may be used for taking blood for laboratory tests. You may also get IV fluids and medicines quickly and easily. Having the catheter may keep your arm from being stuck many times with a needle. The catheter will have 1-3 small tails (tubes) coming from your arm where the catheter was put in. Why do I need a PICC line or midline catheter? PICC lines are used for [facility] treatments. PICC lines may be used for up to a year. They are often put in to give you IV medicines at home. You may need a PICC catheter because caregivers cannotuse smaller veins in your body. Smaller veins may be damaged, or they may have poor blood flow. ??? Catheters are also used in case of emergency when you would need medicines or fluids very quickly. ??? The following are medicines and treatments you may get when you have a PICC line. ? Antibiotics. These are medicines to prevent infection. ? Frequent blood sample collection. ? IV medicines that would make your smaller veins sore or damaged. ? Receiving IV fluids for a long period of time. ? Pain medicine. ? Total Parenteral Nutrition: This is also called TPN. TPN is a special liquid food that goes directly into your veins. ? Blood ? Chemotherapy (Medicine for cancer) What are the benefits of having a PICC line put in? Having a PICC line may keep your arm from being stuck many times with a needle to draw blood or start an IV (intravenous catheter) . ??? Through a PICC catheter, you may have blood taken for tests. You may also get IV fluids and medicines quickly and easily. ??? Small veins can be damaged or irritated by certain drugs or nutritional solutions. A PICC line helps to decrease vein irritation from antibiotics, IV pain drugs, or IV cancer drugs. ??? A PICC line can be left in place when you go home. If you go home with a PICC line in place, home care can be set up via the nurse Hardware Engineering Manager to help you. What are possible complications of having a PICC line put in? Some possible complications are: ??? bruising, swelling, or infection in the arm with the PICC line ??? mal-positioned catheter (catheter tip in wrong place) ??? occlusion (blocked catheter) ??? mechanical phlebitis (vein irritation) and thrombosis (clot) Your doctor is the person you should talk to if you have questions about what would happen if you donot choose to have a PICC line put in. Your doctor can talk to you about other choices you may have. What should I expect when it is put in? A written consent that gives your ok to have it put in needs to be signed after you understand that you are going to have a PICC put in, and all your questions about the procedure have been answered toyour satisfaction. This is a safety feature that the hospital practices before doing procedures. An experienced nurse who has been through special training and education will be putting this catheter in. The procedure is done in a specially equipped room in Interventional Radiology on the third floor. The PICC nurse will first talk to you about any questions that you may have. The PICC nurse willexplain to you what is going to be done before starting. Once you arrive in the procedure room in Interventional Radiology, the PICC nurse will then set up for the procedure. She will unwrap the sterile kit and open the needed supplies. A gown and mask and gloves will be worn while putting it in. An ultrasound machine will be used to help guide the catheterin the right place. This machine uses a handle with sound waves to find the vein. The area on your arm where the catheter will be put in is then numbed with a medicine put under yourskin with a tiny needle. The nurse will then put in the catheter using fluoroscopy (a type of x-ray)as a guide. Once the catheter is in your vein, it will be threaded up your arm to the area before your heart. While it is being threaded, you may be asked to turn your head. When the catheter is in, the nurse will place a small dressing on the site along with a little anderson which will help keep the catheter in place. After the procedure is done, a radiologist (doctor in x-ray department) will look at your x-ray to make sure that the end of the catheter is in proper position to give your fluids and/or medications. What should I expect in the care of my PICC? A dressing that is specially made to prevent infections will be put on. After this, the dressing will only be changed once a week unless it needs it sooner. If you go home with the catheter in, you may take a shower as long as you keep the site dry. You ronaldo this by wearing a specially fitted PICC protector that will be provided to you before discharge from the hospital. The dressing at the site must be kept clean and dry. It is important that you watch for signs of infection at the site. Your healthcare provider should be notified if these occur: ??? Redness ??? Swelling ??? Pus ??? Pain at the site Other reasons to notify your healthcare provider are: ??? Catheter becomes partially or totally removed ??? Unable to infuse medication/fluid ??? Unable to draw back blood from the catheter. This may be an early sign that a clot is forming onthe end of the catheter. If this occurs, a medicine called Cathflo may be used to dissolve this clot. Ask the PICC nurse or your doctor, any questions you may have so you feel secure in consenting to having a PICC line. References: Vascular Access Device Selection, Insertion, and Management, [employer] 01/03. A Review of the Efficacy, Safety, Use, and Administration of Cathflo, [employer] 2006 Consult Note - Brooklyn Thrasher APRN - 06/25/2014 2:09 PM EDT Images from the original note were not included. Diabetes Management Team Inpatient Consult Date of Consultation: 06/25/2014 Consult Requested by: Kvng Jolley APRN orthopaedics Reason for Consultation: Dinesh Peña is a 74 y.o. years old female with PMH significant for T2DM,HTN, hyperlipidemia, anemia, who was admitted on 06/23/2014 currently being treated for infection of left hip prothesis. We are being consulted to assist with diabetes management and to provide a [facility] diabetes care. Diabetes History: Dinesh Peña has had diabetes for 4 years, borderline DM for 30 years. She checks BG about 1 x permos. Current outpatient diabetes regimen: Medications: metformin 500 mg po bid Monitoring is done 1 time per month Most recent HA1c was done on 06/14/14 and was 6.6%, suggesting an average glucose of 140 mg/dL for the past 6-8 weeks. Typical diet is: 3 meals a day- rare snacks Breakfast- bran cereal with 1/2 banana and 5 prunes Lunch- this is their large meal - meat potato and veggie Supper- yogurt sandwich Typical exercise regimen is none- currently limited due to hip surgery, enjoys dancing every Sat night Trouble with hypoglycemia no Diabetes Complications Status: Eyes: None Kidneys: None Feet: None Sensory: None Autonomic: None Cardiac: None Current Hospital Diabetes Care: Medications: Novolog sensitive sliding scale q 4 hrs Monitoring: q 4 hrs Diet: level 2 carb control ROS: Constitutional: No recent weight change Endocrine: No thyroid problems Eyes: No recent vision change ENT: No dysphagia, dental issues Cardiovascular: No chest pain Respiratory: No wheezing , shortness of breath GI: No nausea, vomiting, diarrhea, constipation : No frequent urinary tract infections Neurological: No weakness or numbness PMH Past Medical History Diagnosis Date ??? Lumbar degenerative disc disease 12/13/2011 ??? Left hip pain 01/17/2012 Current Hospital Medications: ??? ceFAZolin 2 g Intravenous Q8H ??? warfarin 2.5 mg Oral Once ??? insulin aspart 1-4 Units Subcutaneous Q4H ENEDINA ??? losartan 50 mg Oral Daily ??? gabapentin 300 mg Oral Nightly ??? sodium chloride 0.9 % 5 mL Intravenous BID ??? polyethylene glycol 17 g Oral BID ??? senna-docusate 2 tablet Oral BID ??? multivitamin Ohbs-Nz-SA-Min 1 tablet Oral Daily ??? acetaminophen 1,000 mg Oral Q8H ENEDINA ??? warfarin (COUMADIN) daily order reminder Oral Q24H ??? esomeprazole 20 mg Oral Daily ??? lactobacillus 1 tablet Oral Daily Infusions: none PRN: cyclobenzaprine, diaZEPam, dextrose 50% OR glucagon (human recombinant), sodium chloride 0.9 %, lidocaine, lactulose, bisacodyl, bisacodyl, nalOXone, ondansetron OR ondansetron, oxyCODONE OR oxyCODONE, HYDROmorphone Allergy: Allergies Allergen Reactions ??? Amoxicillin Rash Patient states no reaction to this medication ??? Augmentin [Amoxicillin-Pot Clavulanate] Rash ??? Penicillins Patient states no reaction to this medication ??? Pravastatin Other (See Comments) Loss of muscle and body ??? Simvastatin Other (See Comments) Loss of muscle & body ??? Aspirin Other (See Comments) Change mental statis Social history: History Substance Use Topics ??? Smoking status: Never Smoker ??? Smokeless tobacco: Never Used ??? Alcohol Use: Yes Comment: occasionally Family history: Family History Problem Relation Age of Onset ??? Fractures Mother ??? Dislocations Neg Hx ??? Scoliosis Neg Hx Vitals Last value Range last 24 hrs Temperature Temp: 36.3 ??C (97.3 ??F) Temp: [36.3 ??C (97.3 ??F)-37.3 ??C (99.1 ??F)] Heart Rate Heart Rate: 85 Heart Rate: [82-116] Blood Pressure BP: 120/44 mmHg BP: (93-128)/(30-55) Respiratory Rate Resp: 18 Resp: [16-20] SpO2 SpO2: 96 % SpO2: [91 %-96 %] Physical Exam: Gen: NAD, talking in clear sentences. Laying in bed comfortably HEENT: no LAD, no thyromegaly Heart: RRR, no murmurs. Radial pulses +2. Lungs: CTAB, breathing non-labored. No wheezes or rhonchi. Good aeration Abd: Soft, non-distended, non-tender x4 quadrants, +bs Ext: No edema Neuro: Moving all extremities. Grossly non-focal Labs: Recent Labs 06/25/1433706/24/14 0525 WBC 10.7* 9.8 HGB 6.2* 7.3* HCT 20.6* 23.8* PLATELET 294 295 NEUTROABS 7.18* 6.93* Recent Labs 06/25/14 0338 06/24/14 1156 06/24/14 0525 NA 135 139 138 K 3.7 4.1 4.1 CL 100 100 103 CO2 23 25 25 BUN 13 10 11 CREATININE 0.94 0.70 0.61* GLUCOSE 121 -- 118 Recent Labs 06/25/14 0338 06/24/14 1156 06/24/14 0525 CALCIUM 7.6* 8.4* 8.3* MAGNESIUM -- -- 0.74 Recent Labs 06/24/14 115 PROT 5.9* ALBUMIN 2.7* AST 14 ALT 7 ALKPHOS 58 BILITOT 0.2 BILIDIR 0.1 Recent Labs 06/25/14 0338 06/24/14 0525 INR 1.8* 1.2* PT 21.7* 15.9* No results for input(s): TROPONINT, CK in the last 168 hours. Recent Labs 06/25/14 0338 06/24/14 0525 GLUCOSE 121 118 Assessment: Patient is a 74 y.o. years old female with PMH significant for DM (Last A1C of 6.6) who was admittedon 06/23/2014 for infection of left hip prothesis . Diabetes very well controlled and complicated by infection. Currently with variability of blood glucose levels while hospitalized requiring adjustmentof insulin regimen and DM medications. She has enjoyed excellent control of her diabetes. Even in the setting of infection and surgery she has required minimal insulin correction. When she resumes her metformin it should be enough to control her BG levels. I have recommended she check her BG levels at least 2 times per day until this infection is resolvedand she has recovered from surgery explaining the delayed wound healing and infection risk with hyperglycemia. I asked her to call her PCP if BG > 200 more than 2 times in 1 week. I called in a refill of 60 strips One touch to her pharmacy. Plan: 1.Increase BG monitoring to twice daily when she goes home. Call PCP if BG > 200 twice in 1 week. 2. Resume metformin when ok by primary team. 3. Continue sensitive sliding scale at minimum 4 times daily while in hospital or rehab. Thank you for allowing us to provide care for your patient Plan of Care - Zoe Branch RN - 06/25/2014 11:54 AM EDT Problem: General Plan of Care Goal: Plan of Care Review Outcome: Ongoing (Interventions Implemented as Appropriate) 06/25/14 1149 Plan of Care Review Plan of Care Outcome Status ongoing (interventions implemented as appropriate) Progress improving Coping/Psychosocial Response Interventions Plan of Care Reviewed with patient OUTCOME EVALUATION NOTE: OUTCOME SUMMARY: Pt H&H 6.2, 20.6 this morning; pt receiving two units of blood. Pt BP low and pt feeling fuzzy. Pt has wound vac going at 125 to L hip. Will continue to monitor. PLAN MOVING FORWARD: PICC line placed. Recheck of H&H. INDIVIDUALIZED FALL PREVENTION: Assistance: 1 assist with walker Supervision: None necessary Surveillance: laura CPG GOAL OUTCOME EVALUATION: Goal: Infection Control 06/25/14 1149 Safety Interventions Isolation Precautions standard precautions maintained Infection Prevention blood glucose management;environmental surveillance;hydration promoted;nutrition promoted;promote handwashing;rest/sleep promoted Coping/Psychosocial Response Interventions Counseling calming techniques promoted;emotional support provided Problem: Skin Integrity Impairment, Risk/Actual (Adult, Obstetrics) Goal: Skin Integrity/Wound Healing Patient will demonstrate the desired outcomes. 06/25/14 1149 Skin Integrity Impairment, Risk/Actual (Adult, Obstetrics) Skin Integrity/Wound Healing making progress toward outcome Plan of Care - [place] Sushila - 06/25/2014 4:50 AM EDT Problem: General Plan of Care Goal: Plan of Care Review 06/25/14 041 Plan of Care Review Plan of Care Outcome Status ongoing (interventions implemented as appropriate) Progress progress toward functional goals as expected Coping/Psychosocial Response Interventions Plan of Care Reviewed with patient OUTCOME EVALUATION NOTE: OUTCOME SUMMARY: Patient resting in bed throughout the night. Patient complaining of muscle spasms early in the nightand requested valium to control the spasms and pain. Patient given 5mg oxycodone with valium. About an hour later, patient stated that her pain was 8/10 and was given 2mg dilaudid with some relief. When oxycodone was due again and patient was still complaining of pain, she was given 10mg. Patient has been resting comfortably since then. Pillow wedge is in place and patient has been repositioned frequently. Family at bedside. Fluid bolus completed at beginnig of the shift for low BPs. BP checked after bolus and was 93/40. Doctor was notified about BP and said to continue to monitor the patient and notify him if she starts to become symptomatic. Patient has not voided since 1740. Fluids encouraged. Patient bladder scanned for 267ml at 0018. IV antibiotics continued. Will continue to monitor and help patient achieve discharge goals. PLAN MOVING FORWARD: Continue with pain oxycodone, toradol, dilaudid for pain control as needed. Continue with valium as needed for muscle spasms. Encourage ambulation. Void more frequently. Encourage ambulation as tolerated. Continue with antibiotics. INDIVIDUALIZED FALL PREVENTION: Assistance: 1 person assist with walker to commode Supervision: Frequent, family at bedside Surveillance: Purposeful laura zhu CPG GOAL OUTCOME EVALUATION: Goal: Individualization and Mutuality 06/25/14415 Individualization Individualize the Plan of Care: pain medications frequently Patient Specific Preferences turning/repositioning, pain medications, valium Patient Specific Goals pain management, ambulate, void Mutuality/Individual Preferences What anxieties, fears or concerns do you have about your health or care? pain Goal: Fall Prevention-Safe Patient Handling 06/24/14 1224 06/24/142129 Safety Interventions Safety Precautions/Fall Reduction -- assistive device;nonskid shoes/slippers when out of bed;environmental modification;fall reduction program maintained;family at bedside;lighting adjusted for task/safety Musculoskeletal Interventions Activity/Level of Assistance -- with 1-person assist;with walker Positioning up in chair -- Muscle Strengthening -- activity/mobility promoted;mobility in bed promoted Flores Fall Risk History of Falling -- 0 Secondary Diagnosis -- 15 Ambulatory Aids -- 15 Intravenous Therapy/Heparin/Saline Lock -- 20 Gait/Transferring -- 10 Mental Status -- 0 Score -- 60 Activity and Safety Assistive Device -- Front wheel walker OTHER Flores Fall Risk -- High Goal: Infection Control 06/24/142129 Safety Interventions Isolation Precautions standard precautions maintained Infection Prevention bronchial hygiene promoted;environmental surveillance;blood glucose management;nutrition promoted;hydration promoted;promote handwashing;rest/sleep promoted Coping/Psychosocial Response Interventions Counseling calming techniques promoted;emotional support provided;understanding of situation facilitated;verbalization of feelings encouraged Goal: Discharge Needs Assessment 06/25/14415 Discharge Needs Assessment Concerns to be Addressed no discharge needs identified Readmission Within the Last 30 Days no previous admission in last 30 days Equipment Needed After Discharge walker, rolling Current Health Outpatient/Agency/Support Group Needs homecare agency (specify level of care) Anticipated Changes Related to Illness inability to care for self Self-Care Equipment Currently Used at Home walker, rolling Living Environment Transportation Available family or friend will provide;car Problem: Skin Integrity Impairment, Risk/Actual (Adult, Obstetrics) Goal: Identify Signs and Symptoms and Related Risk Factors Signs and symptoms and related risk factors are identified upon initiation of Human Response Clinical Practice Guideline (CPG) 06/25/14415 Skin Integrity Impairment, Risk/Actual Physiological Related Risk Factors (Skin Integrity Impairment, Risk/Actual) infection Treatment Related Related Risk Factors (Skin Integrity Impairment, Risk/Actual) invasive catheters;medication;physical immobilization;surgery Goal: Skin Integrity/Wound Healing Patient will demonstrate the desired outcomes. 06/25/14415 Skin Integrity Impairment, Risk/Actual (Adult, Obstetrics) Skin Integrity/Wound Healing making progress toward outcome Plan of Care - Jane Stahl E - 06/24/2014 7:06 PM EDT Problem: General Plan of Care Goal: Plan of Care Review 06/24/141855 Plan of Care Review Plan of Care Outcome Status ongoing (interventions implemented as appropriate) Progress progress toward functional goals as expected Coping/Psychosocial Response Interventions Plan of Care Reviewed with patient;spouse OUTCOME EVALUATION NOTE: OUTCOME SUMMARY: FILLER OPERATOR d/c today, patient has been in very little pain. Reports a burning sensation when moving. One assist with walker to commode. Was up to the chair today, currently in bed with abductor in place. BPs have been low 90s/30s, received a bolus, BP increased, but has since decreased to 94/30. PLAN MOVING FORWARD: Mobilize INDIVIDUALIZED FALL PREVENTION: Assistance: One assist with walker Supervision: Independent once set up Surveillance: Purposeful rounding, laura CPG OUTCOME EVALUATION: Goal: Individualization and Mutuality 06/24/14 1533 Mutuality/Individual Preferences What anxieties, fears or concerns do you have about your health or care? none What questions do you have about your health or care? none What information would help us give you more personalized care? none Goal: Fall Prevention-Safe Patient Handling 06/24/14122306/24/141855 Safety Interventions Safety Precautions/Fall Reduction assistive device;fall reduction program maintained;family at bedside;low bed -- Musculoskeletal Interventions Activity/Level of Assistance with 1-person assist;with walker -- Positioning up in chair -- Muscle Strengthening -- activity/mobility promoted;mobility in bed promoted Flores Fall Risk History of Falling 0 -- Secondary Diagnosis 15 -- Ambulatory Aids 15 -- Intravenous Therapy/Heparin/Saline Lock 20 -- Gait/Transferring 10 -- Mental Status 0 -- Score 60 -- OTHER Flores Fall Risk High -- Goal: Infection Control 06/24/141223 Safety Interventions Isolation Precautions standard precautions maintained Infection Prevention rest/sleep promoted;nutrition promoted;hydration promoted;blood glucose management Coping/Psychosocial Response Interventions Counseling understanding of situation facilitated;verbalization of feelings encouraged Goal: Discharge Needs Assessment 06/24/14 1225 06/24/14 12206/24/141855 Discharge Needs Assessment Concerns to be Addressed -- -- no discharge needs identified Readmission Within the Last 30 Days -- -- no previous admission in last 30 days Self-Care Equipment Currently Used at Home -- cane, straight -- Living Environment Transportation Available car;family or friend will provide -- -- Problem: Skin Integrity Impairment, Risk/Actual (Adult, Obstetrics) Goal: Identify Signs and Symptoms and Related Risk Factors Signs and symptoms and related risk factors are identified upon initiation of Human Response Clinical Practice Guideline (CPG) 06/24/141855 Skin Integrity Impairment, Risk/Actual Treatment Related Related Risk Factors (Skin Integrity Impairment, Risk/Actual) surgery Goal: Skin Integrity/Wound Healing Patient will demonstrate the desired outcomes. 06/24/141855 Skin Integrity Impairment, Risk/Actual (Adult, Obstetrics) Skin Integrity/Wound Healing making progress toward outcome Initial Assessments - Ibeth Castelan OT - 06/24/2014 3:44 PM EDT Occupational Therapy Evaluation Patient profile: Dinesh Peña is a 74 y.o. 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 Past Medical History Diagnosis Date ??? Lumbar degenerative disc disease 12/13/2011 ??? Left hip pain 01/17/2012 Past Surgical History Procedure Laterality Date ??? Removal of hip prosthesis, complex Left 06/23/2014 @TOTAL HIP PROSTHESIS, REMOVAL performed by Petar Arriola MD at [facility] MAIN OR ??? Left 06/23/2014 MODIFIER PROSTALAC DEPUY performed by Petar Arriola MD at [facility] MAIN OR Social History: Patient lives with her Home: one story Functional Status: ADLs: reports requiring assistance for socks, shoes, Mobility: walker DME: has tub seat but doesn't feel confident in its use, discussed use of transfer bench, raised toilet seat Shares responsibility for meal prep with , assists with housework, supportive daughter. Precautions/Special Considerations: Code: full code Activity: PWB 50% LLE; Enhanced precautions: No hip flexion past 90 degrees, no hip internal rotation past 10 degrees, no hip adduction past midline. Subjective: I don't trust the seat I have for my tub. Objective: Patient was seen today for OT evaluation. Patient's and daughter present. Cognitive Status/Behavior: Alert, oriented, cooperative, motivated for independence, appears fatigued. Communication: WFL Vision/Perception: WFL Range of motion, strength, coordination, sensation: : Bilateral UEs are within functional limitations LLE: PWB 50%, painful range of motion, decreased strength. Activities of Daily Living: Upper and lower body dressing and bathing: ?? Patient declines the need for sock aid as will assist as needed. Toileting: Requesting to use commode, session interrupted. Functional Mobility: PT saw patient for mobility with FWW, PWB 50%. IADL???s: Assistance available to patient. Endurance: Information taken from last recorded vitals in flowsheet. Last value Range last 8 hrs Heart Rate Heart Rate: 88 Heart Rate: [66-88] Blood Pressure BP: 93/38 mmHg BP: (90-93)/(35-38) SpO2 SpO2: 93 % SpO2: [93 %-94 %] On room air Pain: Tolerable at rest. Informed Consent: The patient agrees to and understands the OT treatment plan and goals. Education: Patient has been educated on Role of occupational therapy/rehabilitation, ADL, Recommendations and Discharge planning and verbalizes understanding. Patient status, treatment, and mobility recommendations discussed with nursing. Assessment: Patient presents with impaired ability to perform daily activities and functional mobility secondary to LLE PWB 50%, enhanced precautions. Patient Very fatigued today, requesting to use commode, however, session was interrupted. Patient will benefit from ongoing OT services to maximize func tional independence while hospitalized. Recommendations: Equipment needs at discharge: Discussed transfer tub bench with family, they will explore. Discharge Recommendations: to be determined Goals: To be achieved by 06/30/14: 1. Patient will complete upper body sponge bathing while seated, once set up. 2. Patient will don pants with supervision. 3. Patient will ambulate to the bathroom with supervision, PWB 50% LLE, FWW. 4. Patient will consistently comply with enhanced precautions during ADL training. Plan: Patient to be seen 1-3 more visits for therapy including Transfers, ADL, Safety, Precautions/Protocol, Functional Mobility, Recommendations and Discharge planning. Eval date: 06/24/2014 Total time spent with patient: 13 minutes Total timed interventions: 0 minutes Pager: [phone] Ibeth Castelan OT 06/24/2014 Occupational Therapy Rehabilitation Department Consult Note - Naomi Stewart MD - 06/24/2014 3:19 PM EDT Patient Name: Dinesh Peña Patient Age: 74 y.o. 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 female with pmhx [...] were elevated) and for consideration of possible explantation. At [facility] [place] patient was evaluated by orthopedic team s/p OR on 06/23/14 intra operatively found to have gross purulence upon incising IT band. Pus tracked from joint through sinus in IT band and up towards skin. 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 Cultures from OR yielding nafcillin susceptible Staph aureus.Initiated on Iv vancomycin and ID consulted for antibiotic management. ROS: General: denies fever, chills, sweats, change [...] Comments) Change mental statis Pertinent Medications: Iv vancomycin SoHx: No recent travel, no alcohol, no smoking, no drugs No pets Family History Not contributory to current condition Physical Exam (24 hrs): Temp: [36.6 ??C (97.9 ??F)-37.1 ??C (98.8 ??F)] Heart Rate: [66-90] BP: (90-120)/(35-62) Resp: [10-20] SpO2: [93 %-100 %] Gen: Not in distress HEENT: PERRLA. Pulm: CTAB. Nl effort. Cardio: RRR, no M/G/R. GI: Abd S/ND/NT w/o rebound or guarding. Neuro: AAOx3,no fnd Ext: left hip surgical site slightly tender and wound vac in place Labs Lab Results Component Value Date WBC 9.8 06/24/2014 RBC 2.94* 06/24/2014 HGB 7.3* 06/24/2014 HCT 23.8* 06/24/2014 MCV 81.0 06/24/2014 MCH 24.8* 06/24/2014 MCHC 30.7* 06/24/2014 PLATELET 295 06/24/2014 RDWCV 18.5* 06/24/2014 Lab Results Component Value Date NA 139 06/24/2014 K 4.1 06/24/2014 CL 100 06/24/2014 CO2 25 06/24/2014 Lab Results Component Value Date BUN 10 06/24/2014 CREATININE 0.70 06/24/2014 Lab Results Component Value Date ALT 7 06/24/2014 AST 14 06/24/2014 ALKPHOS 58 06/24/2014 BILITOT 0.2 06/24/2014 CRP-88 Sed rate:94 Micro: Left hip joint cx: 06/23/14 Few Staphylococcus aureus Nafcillin susceptible Left hip tissue cx:06/23/14- staph aureus Left acetabulum cx:06/23/14-Few Staphylococcus aureus two morphologies Nafcillin susceptible Behind poly liner left hip:06/23/14 Few Staphylococcus aureus Left femoral canal:06/23/14 Rare staph aureus Imaging: Xray of hip No immediate post arthroplasty complication identified. Impression: Dinesh Peña is a 74 y.o. female with above mentioned comorbidities p/w left hip wound which was present for many months and was draining recently closed was referred to [facility] [place] orthopedic clinic for evaluation of possible PJI as inflammatory markers were elevated s/p eval by ortho team was taken to ORon 06/23/14 s/p explant and antibiotic spacer placement,intro operatively gross purulence was visualized.Cultures yielded Nafcillin susceptible staph aureus.We would recommend to start iv cefazolin and stop Iv vancomycin.Ms Peña could have had PJI to begin with which could have presented as initial skin/soft tissue infection and continued as draining sinus. Recommendation: Stop iv vancomycin(no e/o MRSA) Start Iv cefazolin 2 gm every 8 hrs F/u OR cultures Duration of therapy would be 6 weeks (start date is 06/23/14- day of explant) Will involve OPAT team in care of the patient ID service will continue to follow the patient,please page [phone] with questions Above recommendations were communicated with the primary team. x Recommendations discussed with primary team. Consult service will continue to follow patient. Recommendations discussed with primary team. ID will sign off. Please page [phone] if further consultation required. Case discussed with ID attending Dr.Andrews Tian Hankins MD, Fellow, Infectious Disease Pager [phone] ID Staff: I saw the patient with Dr. Hankins. I have reviewed the recent history, physical exam, and lab data. The assessment and plan above was created in discussion with me and is as documented above by the fellow. 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 Now that hardware has been removed, will need 6 week IV abx course or longer depending on wound healing. Pt has definite amp/augmentin ADR so nafcillin not optimal. Will start with cefazolin high dose. She will likely be going to a facility at d/c due to insurance and rehab needs. May be able to transition to once daily CTX after d/c from rehab. Await final micro from today's explant. 60 minutes Itzel Stewart MD Initial Assessments - Keyur Champagne, PT - 06/24/2014 2:29 PM EDT Physical Therapy Evaluation Patient profile: Pt. is a 74 y.o. female admitted on 06/23/2014 by Petar Ahuja MD for s/pleft hip explant and antibiotic spacer placement on 06/23/14 due to infection. Incisional Vac continuous x [address] Mepilex dressing. Needs PICC line placement and ID consulted for antibioticregimen. PMH: Past Medical History Diagnosis Date ??? Lumbar degenerative disc disease 12/13/2011 ??? Left hip pain 01/17/2012 Past Surgical History Procedure Laterality Date ??? Removal of hip prosthesis, complex Left 06/23/2014 @TOTAL HIP PROSTHESIS, REMOVAL performed by Petar Arriola MD at [facility] MAIN OR ??? Left 06/23/2014 MODIFIER PROSTALAC DEPUY performed by Petar Arriola MD at [facility] MAIN OR Social History: Patient lives with in a ranch style home. Stairs: 3 stairs to enter the home with one railing Baseline Mobility: using FWW, helped her in and out of the car Equipment at home: FWW, cane, crutches, raised toilet seat, shower chair Precautions/Special Considerations: 50% WB on LLE, enhanced hip precautions: no hip flexion >90 degrees, no hip adduction across the midline, and no hip internal rotation >10 degrees. Subjective: ???I have been sitting in my chair for awhile and Would like to use the commode now.?? Objective: Pt seen for evaluation today. Pain: 0/10 when sitting in recliner chair, increase of pain during activity Vital Signs: AT REST Sp02: 93% HR: 88 BP: 93/38 mmHg After chair to commode transfer: 99/35 mmHg, c/o of lightheadedness Mental Status: alert, oriented to person, place, and time Musculoskeletal: ROM: hip adduction, flexion, IR not tested due to hip precautions, all other WNL ( AAROM L hip), R LE & UE's WFL Strength: decrease strength in LLE, notable weakness in peroneal muscles resulting in toeing in. Pt reported she began noticing this awhile ago and was wondering if there were some exercises she could do to prevent this. Instructed to do DF/eversion with other exercises MILTON protocol. Sensation: intact Bed Mobility: Sit to Supine: min A x 2 with leg hall monitor: one person assisting trunk down to bed, other assisting LEonto bed, she could bring in R LE and bridge with R LE to scoot hips over in bed to center in mattress. Transfers: Sit to Stand: Min A x 2 when standing from recliner chair, difficulty when transitining hands from armrests to walker Stand to Sit: Min A to assure slow, control lower towards bed, verbal cues to feel for bed first with hands Bed <>Chair: Min A x 2, verbal cues for 50% weightbearing on LLE during RLE step and rest of the weight through the hands. Gait: Distance: 5' from recliner to commode to bed ; limited by lightheaded feelings Device used: FWW Level of assist: Min A Gait pattern: step to with 50% WB on LLE (decreased step length, foot clearance, & pedro). Pt. to utilize FWW and min A for ambulation with nursing and mobility aides. Pt is presenting with low BP and c/o of dizziness so she should be followed with a chair and wear a gait belt. Balance: Sitting: independent static and dynamic sitting balance Standing: decreased static and dynamic balance, indicating the need for a FWW Informed Consent: The caregiver and family agrees to and understands the PT treatment plan and goals. Education: Pt and family educated on enhanced hip precautions and 50% WB status. Precautions writtenon board in her room and on the handout she was given. Educated on how to enter/exit a car while maintaining hip precautions. Educated on exercises (heel slides, LAQ, glut sets, adductor sets, SAQ, DF/EV). Pt and family demonstrated/verbalized understanding. Patient status, treatment, and mobility recommendations discussed with nursing. Assessment: Pt tolerated today???s evaluation well. Pt has difficulty with functional mobility and transfers, secondary to decreased ROM, strength, endurance, and increased pain. Pt c/o feeling lightheaded which also limited her functional mobility. The pt would benefit from skilled therapy services to maximize functional independence while in the hospital and to address limitations as noted above. Goals: To be achieved by 06/28. 1. Pt. to demonstrate knowledge of precautions and weight bearing limitations during functional activities. -educated on weight bearing limitations, precautions, & exercises but needs reinforcement 2. Pt. to demonstrate understanding of appropriate exercises. See above 3. Pt. to perform supine to sit/sit to supine transfers independently using the leg hall monitor. 4. Pt. to perform sit to stand/stand to sit transfers independently. 5. Pt. to ambulate 75 feet with FWW independently using appropriate technique. 6. Pt. to ambulate up/down 3 step/stairs with cane or crutch contact guard (pt will help herat home). 7. Family or caregiver to demonstrate understanding of therapeutic interventions to support the careof the patient. Plan: Pt to be seen 2-3 times per week for therapy including Bed mobility, Transfers, Assistive device/technique, Stairs and Exercise. Patient agrees with plan as stated above. Tomorrow give theraband exercises to improve ankle strength. Equipment needs: No equipment needs; she has necessary equipment. Discharge Recommendations: Pt would prefer discharge to home with VNA services. Will determine closer to discharge appropriate setting. Gait, Stairs navigation, and endurance still needs further assessment. Needs PICC line and ABX recommendations from ID service. Total time spent with patient: 45 minutes Evaluation Total timed interventions: 45 minutes Su Montero 06/24/2014 Pager: [phone] Physical Therapy Rehabilitation Department Patient seen and note written in conjunction with Su Mario, SPT. KEYUR CHAMPAGNE PT Pager#[phone] Plan of Care - Swati Quarles RN - 06/23/2014 11:56 PM EDT Problem: General Plan of Care Goal: Plan of Care Review OUTCOME EVALUATION NOTE: OUTCOME SUMMARY: Doing well post -op: pain well controlled with FILLER OPERATOR dilaudid. Wound vac in place and functioning. Abductor pillow in situ. PLAN MOVING FORWARD: Pain control; antibiotics. Mobilization INDIVIDUALIZED FALL PREVENTION: Assistance: Turns with assist. Supervision: Foir transfers and ADL's Surveillance: Masimo, hourly rounding CPG GOAL OUTCOME EVALUATION: Goal: Fall Prevention-Safe Patient Handling 06/23/14223806/23/14 2336 Safety Interventions Safety Precautions/Fall Reduction assistive device;lighting adjusted for task/safety;low bed;nonskidshoes/slippers when out of bed -- Flores Fall Risk History of Falling 0 -- Secondary Diagnosis 0 -- Ambulatory Aids 15 -- Intravenous Therapy/Heparin/Saline Lock 20 -- Gait/Transferring 10 -- Mental Status 0 -- Score 45 -- OTHER Flores Fall Risk High -- Musculoskeletal Interventions Activity/Level of Assistance -- bed rest;greater than 2-person assist Positioning -- supine (Abduction pillow in place) Goal: Infection Control 06/23/14223806/23/14 6125 Safety Interventions Isolation Precautions standard precautions maintained -- Infection Prevention -- bronchial hygiene promoted;environmental surveillance;hydration promoted;rest/sleep promoted Op Note - Petar Arriola MD - 06/23/2014 7:26 PM EDT [facility] [place] Operative Note Patient Name: Dinesh Peña : [id number] MR#: [id number] Case Date: 06/23/2014 Surgeon: Surgeon(s) and Role: * Petar Arriola MD - Primary * Ranulfo Canchola MD 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 Pus tracked from joint through sinus in IT band andup towards skin. 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 Multiple cultures taken (5 total). Acetabulum reamed to 53 and medialized. Femur reamed to 13mm and protalac stem placed. Poly cemented to pelvis with 36mm head. Complications: none Fluids: 2500cc LR Estimated Blood Loss: 700 mL Drains: none UOP: 615cc Disposition: awakened from anesthesia, extubated and taken to the recovery room in a stable condition, having suffered no apparent untoward event. Condition: doing well without problems Attestation: Case Date: 06/23/2014 I was present and I participated during the entire procedure (does not need to include opening and closing). (Please see the Surgical Encounter Summary for any Implant and Specimen details pertinent to this patient.) INDICATION FOR PROCEDURE: Ms. Peña is a 74-year-old female who underwent a left total hip replacement by Dr. Vo at an outside institution in 05/2012. She had issues with wound drainage postoperatively and underwent multiple irrigations and debridement. She was subsequently referred to one of my partners, Dr. Samm Wisdom who aspirated her knee and it grew out MSSA. She was placed on Keflex prophylactically and was subsequently transferred to my care due to the complexity of her case. I had multiple discussions with her in the clinic about various treatment options including lifetime suppression. He felt that she could not live with an infection in her joint knowing it was there. She had no symptoms of systemic disease and then suppressed from on Keflex. She did undergo an eye procedure and her instrument repair specialist did not want her to delay any more surgical intervention until at least May. She had remained on suppressive antibiotics in the interim without symptoms. We discussed the merits of different treatment options including two-stage explant and later revision. After the risks and benefits were discussed with her and family, informed consent was obtained. PROCEDURE: Ms. Peña was in the preoperative holding area where informed consent confirmed the appropriate site that was marked and a preoperative checklist was complete. She was taken to the operating room where general anesthetic was administered. A Sandoval catheter was introduced under sterile technique. She was positioned in the right lateral decubitus position with the left hip above. All bony prominences were well padded. The left lower extremity was prepped and draped in the usual sterile fashion using chlorhexidine, alcohol, and DuraPrep. A clinical time-out was held confirmed the correct patient, procedure, and site. We started by using the old incision and excising the scar. 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 We dissected sharply through the region of the IT band. Hemostasis was obtained with electrocautery. The IT band was incised in line with its fibers and flaps were created anteriorly and posteriorly. We decided to dissect out the sciatic nerve and the nerve could be palpable and was quite posteriorly outside of the surgical field. At that point, we placed a Charnley bow retractor. The proximal one-third of the gluteus rupali tendon was released. There was a sinus track, which was noted to extend from within the joint right through the IT band into the superficial layers. When we initially encountered this, we did send cultures. This necrotic purulent material was excised. There was a direct hole through the posterior capsule into the joint full of pus. We performed a posterior approach to the hip creating a full-thickness posterior capsular flaps. We performed a synovectomy of the hip joints. We can adequately identify the prosthesis. There was a significant amount of necrotic and infected tissue, which was also debrided. We then dislocated the hip atraumatically. A bone tamp and a mallet was used to disengage the head from the femoral stem. We then began tripping around the stem using flexible osteotomes. We used a martina to martina out the greater trochanters so that the stem could easily be removed. We used after multiple attempts of trying to remove the stem using a slap hammer extractor and then something to remove the bone using osteotomes. We were eventually able to get the stem out of the femur removed without causing injury to the femur. Cultures were taken from within the femoral canal. Our attention was then drawn to acetabulum. We adequately debrided the acetabulum so that we could identify the cup. The sac was noted to be quite lateral and was significantly uncovered. The poly was easily removed from the metal shelters. Cultures were taken from behind the poly and a screwdriver was used to remove the two screws within the acetabular component. We then used the Huan explant around the cup to remove it, which was removed easily and had very little bony on growth. We then used an acetabular reamer and reamed the acetabula medially to 53 mm. This was down from the 54 mm cup that was in there, which was quite lateral. At that point, we had good bleeding bone, which was adequately debrided. Our attention was then drawn back to the femur. We placed a flexible guidewire down the femur, sequentially reamed the femur up to a size 13 mm reamer. We used [place] reverse curette and then cleared the femur of any debris. Once the femur and the acetabulum were debrided as well as all the soft tissues, we then began irrigating the wound. The femoral canal was irrigated with 3 liters of normal saline, followed by 1 liter of bacitracin. The acetabulum was irrigated with 3 liters of normal saline, followed by 1 liter of bacitracin. The soft tissues were irrigated with 3 liters of normal saline, followed by 1 liter of bacitracin. While we are irrigating on the bath table, we prepared a size 1 PROSTALAC stem and two mold. We had sized the appropriate broach size by passing one broach and a two broach down the femur. We mixed one batch of medium viscosity cement with the addition of 2 g of vancomycin and 2.4 mg of tobramycin and placed this around the stem and into the PROSTALAC mold. The cement was allowed to adequately harden. We opened a 36-mm poly and scuffed up the back using a Martina and created several dimples. We elected to use a PROSTALAC cement poly into the acetabulum secondary to the patient's age and low functioning capabilities. It was felt that she would be able to function with a hemiarthroplasty spacer with cement mold grinding in her acetabulum. Once all of her irrigation was complete, we then mixed two half batches of quick set cement with the addition of 2 g of vancomycin and 2.4 mg of tobramycin. This was then placed into the acetabulum and the poly was pressurized into the cement and held with the appropriate anteversion and abduction. We then placed the PROSTALAC stem down within the femoral canal. We waited until the cement got hard within the acetabulum. Any excess cement was removed. At that point, we placed the PROSTALAC stem down within the femur and placed a 36+ 1.5 head. The hip was reduced atraumatically and found to be stable with flexion to 90 degrees and internal rotation to 45 degrees. At that point, we dislocated the hip once again. We used another half batch of quick set cement to wrap around the proximal portion of the femur to avoid rotation of the femoral stem. Once the cement was hard, we then reduced the hip once again. We copiously irrigated the wound. The posterior capsular flap that we created was closed with #1 PDS. The gmax tendon was reapproximated to the back of femur using #1 PDS. The IT band was closed with a combination of #1 PDS and sterile PDS. The deep layers were closed with 0 PDS after irrigating them once again. The superficial layers were closed with 2-0 PDS and the skin was closed with skin berkley. An incisional VAC was applied and set to 75 mmHg after placing Ioban to protect the skin edges and Xeroform over the berkley. All needle, sponge, and instrument counts were [...] Celebrex 200 mg po q 12 hours for 2 days (hx of CAD, renal insufficiency or diabetes) Nexium 20mg qd x 2 weeks (or other PPI) Zofran 4 mg po/iv q 8 hours PRN nausea D/C Sandoval catheter in AM POD#1 Nutrition consult Diabetes consult Vancomycin until ID recs ID consult Xrays in PACU Weight bearing status of operative extremity: partial 50% weight bearing. Enhanced hip precautions Wound closure: Berkley need removal in 14 days Dressing changes: Incisional Vac at 75mmHg continuous x [address] Mepilex dressing Follow-up Plan: As scheduled prior to surgery (approx. 5 weeks with x-rays) Anticoagulation: Coumadin 6 weeks Any possible barriers to discharge: Likely to require SNF Plan for hospital stay: Needs PICC line, Needs consult from ID and Follow cultures Anticipated Length of Stay: 3-4 days Implant Summary: Implant Name Type Inv. Item Serial No. Sash Sticker Lot No. LRB No. Used Action CEMENT,BNE,SMARTSET MV,EO,40GM ([id number]) - [id number] IMPLANTS [id number] Depuy Clay Molder - [id number] Left 2 Implanted INSER,ALTRX,NT,[id number] ([id number]) (AUTOREQ) - [id number] IMPLANTS [id number] Depuy Clay Molder - 3527 [id number] Left 1 Implanted STEM,PROSTALAC,HI-OFST,1,105MM ([id number]) (AUTOREQ) - [id number] IMPLANTS [id number] Depuy Clay Molder - 3527 [id number] Left 1 Implanted HEAD,ATC,MTL,+1.5MM,36MM ([id number]) (AUTOREQ) - [id number] IMPLANTS 6554 Depuy Clay Molder - 3527 [id number] Left 1 Implanted CEMENT,BNE,CMW 2,HLF DOSE,20GM ([id number]) - [id number] IMPLANTS [id number] Depuy Clay Molder - 3527 [id number] Left 2 Implanted Brief Op Note - Petar Arriola MD - 06/23/2014 4:00 PM EDT Brief Operative Note Patient Name: Dinesh Peña : [id number] MR#: [id number] Case Date: 06/23/2014 Surgeon: Surgeon(s) and Role: * Petar Arriola MD - Primary * Ranulfo Canchola MD 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 Pus tracked from joint through sinus in IT band andup towards skin. 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 Multiple cultures taken (5 total). Acetabulum reamed to 53 and medialized. Femur reamed to 13mm and protalac stem placed. Poly cemented to pelvis with 36mm head. Complications: none Fluids: 2500cc LR Estimated Blood Loss: 700 mL Drains: none UOP: 615cc Disposition: awakened from anesthesia, extubated and taken to the recovery room in a stable condition, having suffered no apparent untoward event. Condition: doing well without problems Attestation: Case Date: 06/23/2014 I was present and I participated during [...] Celebrex 200 mg po q 12 hours for 2 days (hx of CAD, renal insufficiency or diabetes) ?? Nexium 20mg qd x 2 weeks (or other PPI) ?? Zofran 4 mg po/iv q 8 hours PRN nausea ?? D/C Sandoval catheter in AM POD#1 ?? Nutrition consult ?? Diabetes consult ?? Vancomycin until ID recs ?? ID consult ?? Xrays in PACU ?? Weight bearing status of operative extremity: partial 50% weight bearing. Enhanced hip precautions ?? Wound closure: Berkley need removal in 14 days ?? Dressing changes: Incisional Vac at 75mmHg continuous x [address] Mepilex dressing ?? Follow-up Plan: As scheduled prior to surgery (approx. 5 weeks with x-rays) ?? Anticoagulation: Coumadin 6 weeks ?? Any possible barriers to discharge: Likely to require SNF ?? Plan for hospital stay: Needs PICC line, Needs consult from ID and Follow cultures ?? Anticipated Length of Stay: 3-4 days Implant Summary: Implant Name Type Inv. Item Serial No. Sash Sticker Lot No. LRB No. Used Action CEMENT,BNE,SMARTSET MV,EO,40GM ([id number]) - [id number] IMPLANTS [id number] PúbliKo - 3527 [id number] Left 2 Implanted INSER,ALTRX,NT,[id number] ([id number]) (AUTOREQ) - [id number] IMPLANTS 52296 Depuy Clay Molder - 3527 [id number] Left 1 Implanted STEM,PROSTALAC,HI-OFST,1,105MM ([id number]) (AUTOREQ) - [id number] IMPLANTS 63039 Depuy Clay Molder - 3527 [id number] Left 1 Implanted HEAD,ATC,MTL,+1.5MM,36MM ([id number]) (AUTOREQ) - [id number] IMPLANTS 6554 Depuy Clay Molder - 3527 [id number] Left 1 Implanted CEMENT,BNE,CMW 2,HLF DOSE,20GM ([id number]) - [id number] IMPLANTS 5128 Depuy Clay Molder - 3527 [id number] Left 2 Implanted documented in this encounter Plan of Treatment Scheduled Referrals Name Type Priority Associated Diagnoses Order S chedule OPAT: Order / Outpatient Routine Acquired absence of Ordered : Recommendation for 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 POCT GLUCOSE Routine 06/27/2014 7:16 AM Results f or this EDT procedure are i n the results section. POCT GLUCOSE Routine 06/27/2014 4:56 AM Results f or this EDT procedure are i n the results section. BMP W/FASTING GLUCOSE Routine 06/27/2014 3:55 AM Results for this EDT procedure are i n the results section. HEMOGRAM Routine 06/27/2014 3:55 AM Results f or this EDT procedure are i n the results section. DIFFERENTIAL, Routine 06/27/2014 3:55 AM Results for this AUTOMATED EDT procedure are i n the results section. PROTHROMBIN TIME Routine 06/27/2014 3:55 AM Resul ts for this EDT procedure are i n the results section. CBC (WITH DIFF) Routine 06/27/2014 3:55 AM EDT POCT GLUCOSE Routine 06/26/2014 11:48 Results for this PM EDT procedure are i n the results section. POCT GLUCOSE Routine 06/26/2014 6:55 PM Results f or this EDT procedure are i n the results section. POCT GLUCOSE Routine 06/26/2014 3:53 PM Results f or this EDT procedure are i n the results section. POCT GLUCOSE Routine 06/26/2014 11:50 Results for this AM EDT procedure are i n the results section. PLACE PICC LINE: Routine 06/26/2014 11:38 Results for this CONTACT VASCULAR AM EDT procedure a re in ACCESS the results section. XR PICC PLACEMENT Routine 06/26/2014 11:12 Result s for this OVER 5 YEARS (IV AM EDT procedure a re in TEAM) the results section. POCT GLUCOSE Routine 06/26/2014 6:49 AM Results f or this EDT procedure are i n the results section. POCT GLUCOSE Routine 06/26/2014 4:11 AM Results f or this EDT procedure are i n the results section. HEMOGRAM Routine 06/26/2014 3:58 AM Results f or this EDT procedure are i n the results section. DIFFERENTIAL, Routine 06/26/2014 3:58 AM Results for this AUTOMATED EDT procedure are i n the results section. PROTHROMBIN TIME Routine 06/26/2014 3:58 AM Resul ts for this EDT procedure are i n the results section. CBC (WITH DIFF) Routine 06/26/2014 3:58 AM EDT BASIC METABOLIC PANEL Routine 06/26/2014 3:58 AM Results for this (NON-FASTING) EDT procedure are in the results section. POCT GLUCOSE Routine 06/26/2014 12:16 Results for this AM EDT procedure are i n the results section. POCT GLUCOSE Routine 06/25/2014 7:02 PM Results f or this EDT procedure are i n the results section. POCT GLUCOSE Routine 06/25/2014 4:20 PM Results f or this EDT procedure are i n the results section. HEMOGRAM STAT 06/25/2014 3:01 PM Results f or this EDT procedure are i n the results section. POCT GLUCOSE Routine 06/25/2014 11:44 Results for this AM EDT procedure are i n the results section. TRANSFUSE RED BLOOD Routine 06/25/2014 9:50 AM CELLS EDT POCT GLUCOSE Routine 06/25/2014 7:05 AM Results f or this EDT procedure are i n the results section. TRANSFUSE RED BLOOD Routine 06/25/2014 6:36 AM CELLS EDT PREPARE RBC Routine 06/25/2014 5:55 AM Results f or this EDT procedure are i n the results section. PREPARE RBC Routine 06/25/2014 5:52 AM Results f or this EDT procedure are i n the results section. POCT GLUCOSE Routine 06/25/2014 3:38 AM Results f or this EDT procedure are i n the results section. HEMOGRAM Routine 06/25/2014 3:38 AM Results f or this EDT procedure are i n the results section. DIFFERENTIAL, Routine 06/25/2014 3:38 AM Results for this AUTOMATED EDT procedure are i n the results section. PROTHROMBIN TIME Routine 06/25/2014 3:38 AM Resul ts for this EDT procedure are i n the results section. CBC (WITH DIFF) Routine 06/25/2014 3:38 AM EDT BASIC METABOLIC PANEL Routine 06/25/2014 3:38 AM Results for this (NON-FASTING) EDT procedure are in the results section. POCT GLUCOSE Routine 06/25/2014 12:06 Results for this AM EDT procedure are i n the results section. POCT GLUCOSE Routine 06/24/2014 9:34 PM Results f or this EDT procedure are i n the results section. POCT GLUCOSE Routine 06/24/2014 6:50 PM Results f or this EDT procedure are i n the results section. POCT GLUCOSE Routine 06/24/2014 4:13 PM Results f or this EDT procedure are i n the results section. BLOOD CULTURE STAT 06/24/2014 12:09 Results fo r this PM EDT procedure are i n the results section. CMP W/FASTING GLUCOSE Routine 06/24/2014 11:56 Re sults for this AM EDT procedure are i n the results section. BLOOD CULTURE STAT 06/24/2014 11:56 Results fo r this AM EDT procedure are i n the results section. PREALBUMIN Routine 06/24/2014 11:56 Results for this AM EDT procedure are i n the results section. POCT GLUCOSE Routine 06/24/2014 11:39 Results for this AM EDT procedure are i n the results section. POCT GLUCOSE Routine 06/24/2014 8:42 AM Results f or this EDT procedure are i n the results section. NUCLEATED RED BLOOD Routine 06/24/2014 5:25 AM Re sults for this CELLS EDT procedure are i n the results section. HEMOGRAM Routine 06/24/2014 5:25 AM Results f or this EDT procedure are i n the results section. DIFFERENTIAL, Routine 06/24/2014 5:25 AM Results for this AUTOMATED EDT procedure are i n the results section. PROTHROMBIN TIME Routine 06/24/2014 5:25 AM Resul ts for this EDT procedure are i n the results section. CBC (WITH DIFF) Routine 06/24/2014 5:25 AM EDT MAGNESIUM Routine 06/24/2014 5:25 AM Results f or this EDT procedure are i n the results section. BASIC METABOLIC PANEL Routine 06/24/2014 5:25 AM Results for this (NON-FASTING) EDT procedure are in the results section. XR PELVIS Routine 06/23/2014 5:18 PM Results f or this EDT procedure are i n the results section. PROSTHETIC JOINT Routine 06/23/2014 4:37 PM CULTURE, EXTENDED EDT HOLD, AEROBIC & ANAEROBIC ANAEROBIC CULTURE Routine 06/23/2014 4:37 PM Resu lts for this EDT procedure are i n the results section. JOINT CULTURE Routine 06/23/2014 4:36 PM Results for this EDT procedure are i n the results section. PROSTHETIC JOINT Routine 06/23/2014 2:45 PM CULTURE, EXTENDED EDT HOLD, AEROBIC & ANAEROBIC PROSTHETIC JOINT Routine 06/23/2014 2:45 PM CULTURE, EXTENDED EDT HOLD, AEROBIC & ANAEROBIC JOINT CULTURE Routine 06/23/2014 2:45 PM Results for this EDT procedure are i n the results section. JOINT CULTURE Routine 06/23/2014 2:45 PM Results for this EDT procedure are i n the results section. ANAEROBIC CULTURE Routine 06/23/2014 2:45 PM Resu lts for this EDT procedure are i n the results section. ANAEROBIC CULTURE Routine 06/23/2014 2:45 PM Resu lts for this EDT procedure are i n the results section. PROSTHETIC JOINT Routine 06/23/2014 1:46 PM CULTURE, EXTENDED EDT HOLD, AEROBIC & ANAEROBIC JOINT CULTURE Routine 06/23/2014 1:46 PM Results for this EDT procedure are i n the results section. ANAEROBIC CULTURE Routine 06/23/2014 1:46 PM Resu lts for this EDT procedure are i n the results section. PROSTHETIC JOINT Routine 06/23/2014 1:41 PM CULTURE, EXTENDED EDT HOLD, AEROBIC & ANAEROBIC JOINT CULTURE Routine 06/23/2014 1:41 PM Results for this EDT procedure are i n the results section. ANAEROBIC CULTURE Routine 06/23/2014 1:41 PM Resu lts for this EDT procedure are i n the results section. MODIFIER PROSTALAC 06/23/2014 12:59 infected hp DEPUY PM EDT prosthesis @TOTAL HIP 06/23/2014 12:59 infected hp PROSTHESIS, REMOVAL PM EDT prosthesis (WRVU 24.35) POCT GLUCOSE Routine 06/23/2014 11:17 Results for this AM EDT procedure are i n the results section. documented in this encounter Results SCAN DOC: IMPLANTABLE DEVICES (06/28/2014 12:00 AM EDT) Narrative This result has an attachment that is no t available. Scanning Provider MEDIA MGR SCAN EXT ORDR/RSLT SCAN DOC: LAB (06/28/2014 12:00 AM EDT) Narrative This result has an attachment that is no t available. Scanning Provider MEDIA MGR SCAN EXT ORDR/RSLT SCAN DOC: ECG (06/28/2014 12:00 AM EDT) Narrative This result has an attachment that is no t available. Scanning Provider MEDIA MGR SCAN EXT ORDR/RSLT POCT Glucose (06/27/2014 11:14 AM EDT) athologist Signature POC Glucose 130 60 - 199 CERNER mg/dL MILLENNIUM Comment: Supplemental ranges: <140 mg/dL before meals <180 mg/dL all other times of the day Specimen Anatomical Collection Method Collection Time Receive d Time (Source) Location / / Volume Laterality Blood specimen 06/27/2014 11:14 5 (specimen) AM EDT 11:14 AM EDT Petar Arriola MD POINT OF CARE TEST ORDERABLE S Performing Organization Address City/State/[place] [address] CERNER MILLENNIUM POCT Glucose (06/27/2014 7:16 AM EDT) athologist Signature POC Glucose 132 60 - 199 CERNER mg/dL MILLENNIUM Comment: Supplemental ranges: <140 mg/dL before meals <180 mg/dL all other times of the day Specimen Anatomical Collection Method Collection Time Receive d Time (Source) Location / / Volume Laterality Blood specimen 06/27/2014 7:16 AM 015 7:16 (specimen) EDT AM EDT Petar Arriola MD POINT OF CARE TEST ORDERABLE S Performing Organization Address City/State/ZIP Code Phon e Number [address] CERNER MILLENNIUM POCT Glucose (06/27/2014 4:56 AM EDT) athologist Signature POC Glucose 129 60 - 199 CERNER mg/dL MILLENNIUM Comment: Supplemental ranges: <140 mg/dL before meals <180 mg/dL all other times of the day Specimen Anatomical Collection Method Collection Time Receive d Time (Source) Location / / Volume Laterality Blood specimen 06/27/2014 4:56 AM 015 4:56 (specimen) EDT AM EDT Petar Arriola MD POINT OF CARE TEST ORDERABLE S Performing Organization Address City/State/ZIP Code Phon e Number [address] CERNER MILLENNIUM (ABNORMAL) Differential, Automated (06/27/2014 3:55 AM EDT) [facility] Method Time Signature Neutrophils % 71.3 % CERNER MILLENNIUM Neutr Abs (ANC) 7.28 (H) 1.50 - CERNER 6.30 MILLENNIUM x10(3)/mc L Lymphocytes % 15.8 % CERNER MILLENNIUM Lymphocytes Abs 1.6 1.0 - 3.6 CERNER x10(3)/mc MILLENNIUM L Monocytes % 8.1 % CERNER MILLENNIUM Monocyte Abs 0.8 0.2 - 1.0 CERNER x10(3)/mc MILLENNIUM L Eosinophils % 4.5 % CERNER MILLENNIUM Eosinophils Abs 0.5 0.0 - 0.5 CERNER x10(3)/mc MILLENNIUM L Basophils % 0.1 % CERNER MILLENNIUM Basophils [...] Location / / Volume Laterality Blood specimen 06/27/2014 3:55 AM 015 4:15 (specimen) EDT AM EDT Resulting Agency Comment Spec In Lab Petar Arriola MD HEMATOLOGY ORDERABLES Performing Organization Address City/State/[place] [address] CERNER MILLENNIUM (ABNORMAL) Hemogram (06/27/2014 3:55 AM EDT) P athologist Signature WBC 10.2 (H) 4.0 - 10.0 CERNER x10(3)/mcL MILLENNIUM RBC 3.27 (L) 3.93 - CERNER 5.22 MILLENNIUM x10(6)/mcL Hemoglobin 8.4 (L) 11.2 - CERNER 15.7 gm/dL MILLENNIUM Hematocrit 27.0 (L) 34.0 - CERNER 45.0 % MILLENNIUM MCV 82.6 79.0 - CERNER 94.0 fL MILLENNIUM MCH 25.7 (L) 26.6 - CERNER 32.2 pg MILLENNIUM MCHC 31.1 (L) 32.0 - CERNER 36.5 gm/dL MILLENNIUM Platelets 331 145 - 370 CERNER x10(3)/mcL MILLENNIUM RDWSD 52.7 (H) 35.0 - CERNER 46.0 fL MILLENNIUM RDWCV 17.5 (H) 10.9 - CERNER 14.4 % MILLENNIUM MPV 9.0 9.0 - 12.0 CERNER fL MILLENNIUM Specimen Anatomical Collection Method Collection Time Receive d Time (Source) Location / / Volume Laterality Blood specimen 06/27/2014 3:55 AM 015 4:15 (specimen) EDT AM EDT Resulting Agency Comment Spec In Lab Petar Arriola MD HEMATOLOGY ORDERABLES Performing Organization Address [facility]/[address] [facility] HERBIEENNIUM (ABNORMAL) Prothrombin Time (06/27/2014 3:55 AM EDT) P athologist Signature PT 23.5 (H) 12.5 - 15.5 CERNER sec [facility] Comment: Transfusion Committee Guidelines: INR less than 2.0, PTT less than OR equal to 43.5 seconds, or Fibrinogen greater t pompa or equal to 100 mg/dl indicate adequate procoagulant activity for hemos tasis in patients without underlying bleeding disorders. INR 1.9 (H) 0.9 - 1.1 [facility] Specimen Anatomical Collection Method Collection Time Receive d Time (Source) Location / / Volume Laterality Blood specimen 06/27/2014 3:55 AM 015 4:15 (specimen) EDT AM EDT Resulting Agency Comment Spec In Lab Petar Arriola MD HEMATOLOGY ORDERABLES Performing Organization Address [facility]/[address] [facility]UM[facility] (ABNORMAL) BMP w/fasting Glucose (06/27/2014 3:55 AM EDT) P athologist Signature Glucose 127 (H) 65 - 99 [facility] Fasting mg/dL [facility] Comment: ?Fasting* Glucose Interpretive C riteria Normal ?65-99 mg/dL Impaired Fasting glucose ?100-125 mg/dL Consistent with Diabetes Mellitus ? >or= 126 mg/dL *Fasting is defined as no caloric intake for at least 8 hours In the absence of unequivocal hypergly cemia a plasma glucose value of >or= 126 mg/dL should be repeated on a subseq uent day. Diagnosis and Classification of Diabetes Mellitus, Position Statement from the [place] [employer]. ??Diabete s Care, Volume 33, Supplement 1, Apr 2009 BUN 14 8 - 18 mg/dL CERNER MILLENNIUM Creatinine 0.76 0.70 - 1.20 mg/dL CERNER MILL ENNIUM Comment: Please note that the pediatric reference intervals supplied above were not validated at [facility] [place]. Results from pediatri c patients should be interpreted in conjunction to the patient's age, height and muscle mass. Sodium 140 135 - 145 mmol/L CERNER HONG NIUM Potassium 4.3 3.5 - 5.0 mmol/L CERNER HONG NIUM [...] 31 mmol/L CERNER MILLENNI UM Anion Gap 12 5 - 15 mmol/L CERNER MILLENNIU M [...] the following links into your internet browser. [email or web address] [email or web address] Specimen Anatomical Collection Method Collection Time Receive d Time (Source) Location / / Volume Laterality Blood specimen 06/27/2014 3:55 AM 015 4:15 (specimen) EDT AM EDT Resulting Agency Comment Spec In Lab Petar Arriola MD CHEMISTRY ORDERABLES Performing Organization Address City/[facility]/ZIP Code Phon e Number [address] CERNER MILLENNIUM POCT Glucose (06/26/2014 11:48 PM EDT) athologist Signature POC Glucose 132 60 - 199 CERNER mg/dL MILLENNIUM Comment: Supplemental ranges: <140 mg/dL before meals <180 mg/dL all other times of the day Specimen Anatomical Collection Method Collection Time Receive d Time (Source) Location / / Volume Laterality Blood specimen 06/26/2014 11:48 5 (specimen) PM EDT 11:48 PM EDT Petar Arriola MD POINT OF CARE TEST ORDERABLE S Performing Organization Address City/[facility]/ZIP Code Phon e Number [address] CERNER MILLENNIUM POCT Glucose (06/26/2014 6:55 PM EDT) athologist Signature POC Glucose 159 60 - 199 CERNER mg/dL MILLENNIUM Comment: Supplemental ranges: <140 mg/dL before meals <180 mg/dL all other times of the day Specimen Anatomical Collection Method Collection Time Receive d Time (Source) Location / / Volume Laterality Blood specimen 06/26/2014 6:55 PM 015 6:55 (specimen) EDT PM EDT Petar Arriola MD POINT OF CARE TEST ORDERABLE S Performing Organization Address City/[facility]/ZIP Code Phon e Number [address] CERNER MILLENNIUM POCT Glucose (06/26/2014 3:53 PM EDT) athologist Signature POC Glucose 140 60 - 199 CERNER mg/dL MILLENNIUM Comment: Supplemental ranges: <140 mg/dL before meals <180 mg/dL all other times of the day Specimen Anatomical Collection Method Collection Time Receive d Time (Source) Location / / Volume Laterality Blood specimen 06/26/2014 3:53 PM 015 3:53 (specimen) EDT PM EDT Petar Arriola MD POINT OF CARE TEST ORDERABLE S Performing Organization Address City/State/ZIP Code Phon e Number [address] CERTARYN [facility]DIGN[facility]IUM POCT Glucose (06/26/2014 11:50 AM EDT) athologist Signature POC Glucose 146 60 - 199 CERNER mg/dL [facility] Comment: Supplemental ranges: <140 mg/dL before meals <180 mg/dL all other times of the day Specimen Anatomical Collection Method Collection Time Receive d Time (Source) Location / / Volume Laterality Blood specimen 06/26/2014 11:50 5 (specimen) AM EDT 11:50 AM EDT Petar Arriola MD POINT OF CARE TEST ORDERABLE S Performing Organization Address City/[facility]/ZIP Code Phon e Number [address] [facility] PICC Line: Contact Vascular Access Page [phone] (06/26/2014 11:38 AM EDT) Narrative Marko Bunch, ALINA - 06/26/2014 11:38 A M EDT Marko Bunch, RN ? 06/26/2014 11:38 AM PICC/Midline Insertion Procedure Note Indications: Anti-infective This insertion was not to replace a malf unctioning catheter. This insertion was not due to a suspecte d line-associated infection. Location of Procedure: X-Ray Room 11 Risks and Benefits: The risks and benefits of this procedure were reviewed and informed consent was obtained obtained. Time Out: Prior to the start of the procedure, the patient's identity, intended procedure, site/side, correct p atient positioning and presence of the site eryn was confirmed as applicable. The medical history and chart were reviewed to rule out potential contraindications to the planned procedu re. Hand Hygiene: The civil division commander deputy sheriff did perform hand hygiene pr ior to line insertion. Catheter type: PICC Lot number: [id number] Procedure Technique: Skin was prepped with chlorhexidine. Skin preparation agent was completely dr y at the time of first skin puncture. The following barrier precaution methods were used:large sterile drape, maske/eye shield, large sterile g own, sterile gloves and cap. 2 ml of 1% Lidocaine was used for skin w heal. Ultrasound was used for guidance. ??Radiographic contrast ag ent WAS NOT injected for vein identification. Procedure Details: Order received for catheter placement. A 4 Fr. single lumen Bard ?? catheter was placed into the left basili c vein over a 0.018 inch guidewire using modified seldinger techn ique and fluoroscopy. Arm circumference was 37 cm at 2 cm above th e insertion site. Final catheter length (with trimming): 3 9 cm Internal: 39 cm External: 0 cm Tip in SVC per Dr. Ca. The line was not placed over a guidewire . Post Procedure: Diagnosis: SEPTIC L HIP Blood return noted on aspiration of line after placement confirmed. 5 mls of normal saline infuse d free flowing to gravity via PICC after insertion. Sterile dressi ng applied: [id number]. Findings: The patient did tolerate the procedure w ell. No Complications. Procedure Comments: Two unsuccessful attempts on right arm , one in right basilic and one in right brachial. In both cases blo od return obtained, but wire would not advance past about 6cm. Marko Bunch RN 06/26/2014 Petar Arriola MD PROCEDURE/MINOR SURGICAL ORD ERABLES XR VAS venous access (PICC placement) (06/26/2014 11:12 AM EDT) Anatomical Region Laterality Modality N/A Radiographic Imaging Specimen (Source) Anatomical Collection Method Collection Time Re ceived Time Location / / Volume Laterality 06/26/2014 11:12 AM EDT Narrative 06/28/2014 8:55 AM EDT EXAMINATION: PLACEMENT PICC LINE (IV TEAM) Over 5 yrs/XCARM CLINICAL HISTORY: SEPTIC L HIP. ??SINGLE -LUMEN PICC PLACED FOR: ABX TECHNIQUE: C-arm placement of PICC. Limi terri view of the line tip only. COMPARISON: None FINDINGS: Intraprocedural frontal radiog raph of the mediastinum demonstrates a Left PICC, with the catheter tip project ed at the mid SVC. Procedure Note Dank Spann MD - 06/28/2014Format ting of this note might be different from the original. EXAMINATION: PLACEMENT PICC LINE (IV TEA M) Over 5 yrs/XCARM CLINICAL HISTORY: SEPTIC L HIP. SINGLE-L UMEN PICC PLACED FOR: ABX TECHNIQUE: C-arm placement of PICC. Limi terri view of the line tip only. COMPARISON: None FINDINGS: Intraprocedural frontal radiog raph of the mediastinum demonstrates a Left PICC, with the catheter tip project ed at the mid SVC. Petar Arriola MD IMG FLUORO ORDERABLES POCT Glucose (06/26/2014 6:49 AM EDT) athologist Signature POC Glucose 127 60 - 199 CERNER mg/dL MILLENNIUM Comment: Supplemental ranges: <140 mg/dL before meals <180 mg/dL all other times of the day Specimen Anatomical Collection Method Collection Time Receive d Time (Source) Location / / Volume Laterality Blood specimen 06/26/2014 6:49 AM 015 6:49 (specimen) EDT AM EDT Petar Arriola MD POINT OF CARE TEST ORDERABLE S Performing Organization Address [facility]/ZIP [place] [address] CERNER MILLENNIUM POCT Glucose (06/26/2014 4:11 AM EDT) athologist Signature POC Glucose 141 60 - 199 CERNER mg/dL MILLENNIUM Comment: Supplemental ranges: <140 mg/dL before meals <180 mg/dL all other times of the day Specimen Anatomical Collection Method Collection Time Receive d Time (Source) Location / / Volume Laterality Blood specimen 06/26/2014 4:11 AM 015 4:11 (specimen) EDT AM EDT Petar Arriola MD POINT OF CARE TEST ORDERABLE S Performing Organization Address City/[facility]/ZIP [facility] [place] [address] CERNER MILLENNIUM (ABNORMAL) Differential, Automated (06/26/2014 3:58 AM EDT) [facility] gist Method Time Signature Neutrophils % 69.1 % CERNER MILLENNIUM Neutr Abs (ANC) 6.69 (H) 1.50 - CERNER 6.30 MILLENNIUM x10(3)/mc L Lymphocytes % 17.7 % CERNER MILLENNIUM Lymphocytes Abs 1.7 1.0 - 3.6 CERNER x10(3)/mc MILLENNIUM L Monocytes % 8.1 % CERNER MILLENNIUM Monocyte Abs 0.8 0.2 - 1.0 CERNER x10(3)/mc MILLENNIUM L Eosinophils % 4.6 % CERNER MILLENNIUM Eosinophils Abs 0.4 0.0 - 0.5 CERNER x10(3)/mc MILLENNIUM L Basophils % 0.2 % CERNER MILLENNIUM Basophils Abs 0.0 0.0 - 0.2 CERNER x10(3)/mc MILLENNIUM L Immature Gran % 0.30 % CERNER MILLENNIUM [...] Location / / Volume Laterality Blood specimen 06/26/2014 3:58 AM 015 4:14 (specimen) EDT AM EDT Resulting Agency Comment Spec In Lab Petar Arriola MD HEMATOLOGY ORDERABLES Performing Organization Address City/State/ZIP Code Phon e Number [place] [phone] CERNER MILLENNIUM (ABNORMAL) Hemogram (06/26/2014 3:58 AM EDT) P athologist Signature WBC 9.7 4.0 - 10.0 CERNER x10(3)/mcL MILLENNIUM RBC 3.38 (L) 3.93 - CERNER 5.22 MILLENNIUM x10(6)/mcL Hemoglobin 8.6 (L) 11.2 - CERNER 15.7 gm/dL MILLENNIUM Hematocrit 27.4 (L) 34.0 - CERNER 45.0 % MILLENNIUM MCV 81.1 79.0 - CERNER 94.0 fL MILLENNIUM MCH 25.4 (L) 26.6 - CERNER 32.2 pg MILLENNIUM MCHC 31.4 (L) 32.0 - CERNER 36.5 gm/dL ENNIUM Platelets 302 145 - 370 CERNER x10(3)/mcL MILLENNIUM RDWSD 50.7 (H) 35.0 - CERNER 46.0 fL MILLENNIUM RDWCV 16.9 (H) 10.9 - CERNER 14.4 % MILLENNIUM MPV 9.0 9.0 - 12.0 CERNER fL MILLENNIUM Specimen Anatomical Collection Method Collection Time Receive d Time (Source) Location / / Volume Laterality Blood specimen 06/26/2014 3:58 AM 015 4:14 (specimen) EDT AM EDT Resulting Agency Comment Spec In Lab Petar Arriola MD HEMATOLOGY ORDERABLES Performing Organization Address City/[facility]/[place]IP [place] [address] [facility] (ABNORMAL) Prothrombin Time (06/26/2014 3:58 AM EDT) P athologist Signature PT 24.2 (H) 12.5 - 15.5 CERNER sec ENNIUM Comment: [facility] Transfusion Committee Guidelines: INR less than 2.0, PTT less than OR equal to 43.5 seconds, or Fibrinogen greater t pompa or equal to 100 mg/dl indicate adequate procoagulant activity for hemos tasis in patients without underlying bleeding disorders. INR 2.0 (H) 0.9 - 1.1 [facility] Specimen Anatomical Collection Method Collection Time Receive d Time (Source) Location / / Volume Laterality Blood specimen 06/26/2014 3:58 AM 015 4:14 (specimen) EDT AM EDT Resulting Agency Comment Spec In Lab Petar Arriola MD HEMATOLOGY ORDERABLES Performing Organization Address City/[facility] [place] [address] [facility] (ABNORMAL) Basic Metabolic Panel (non-fasting) (06/26/2014 3:58 AM EDT) P athologist Signature Glucose Lvl 122 60 - 199 [facility] Comment: Diabetes: >=200 mg/dL plus symp toms BUN 14 8 - 18 mg/dL CERNER MILLENNIUM Creatinine 0.77 0.70 - 1.20 mg/dL CERNER MILL ENNIUM Comment: Please note that the pediatric reference intervals supplied above were not validated at [facility] [place]. Results from pediatri c patients should be interpreted in conjunction to the patient's age, height and muscle mass. Sodium 140 135 - 145 mmol/L CERNER HONG NIUM Potassium 4.2 3.5 - 5.0 mmol/L CERNER HONG NIUM Comment: Please note: ??Patients with WBC >100,00 0 may have falsely elevated Potassium levels. ??For accurate Potassium quantif ication in these patients send serum separator tube (gold top) for subsequent determinations. ??Contact the Clinical Chemistry Laboratory if there are any qu estions. Chloride 102 98 - 107 mmol/L CERNER MILLENN IUM CO2 25 22 - 31 mmol/L CERNER MILLENNI UM Anion Gap 13 5 - 15 mmol/L CERNER MILLENNIU M Calcium 8.4 (L) 8.5 - 10.5 mg/dL CERNER HONG [...] the following links into your internet browser. [email or web address] Specimen Anatomical Collection Method Collection Time Receive d Time (Source) Location / / Volume Laterality Blood specimen 06/26/2014 3:58 AM 015 4:14 (specimen) EDT AM EDT Resulting Agency Comment Spec In Lab Petar Arriola MD CHEMISTRY ORDERABLES Performing Organization Address City/State/ZIP Code Phon e Number [place] [phone] CERNER MILLENNIUM POCT Glucose (06/26/2014 12:16 AM EDT) athologist Signature POC Glucose 139 60 - 199 CERNER mg/dL MILLENNIUM Comment: Supplemental ranges: <140 mg/dL before meals <180 mg/dL all other times of the day Specimen Anatomical Collection Method Collection Time Receive d Time (Source) Location / / Volume Laterality Blood specimen 06/26/2014 12:16 5 (specimen) AM EDT 12:16 AM EDT Petar Arriola MD POINT OF CARE TEST ORDERABLE S Performing Organization Address City/State/Z[place] [address] CERNER MILLENNIUM POCT Glucose (06/25/2014 7:02 PM EDT) athologist Signature POC Glucose 169 60 - 199 CERNER mg/dL MILLENNIUM Comment: Supplemental ranges: <140 mg/dL before meals <180 mg/dL all other times of the day Specimen Anatomical Collection Method Collection Time Receive d Time (Source) Location / / Volume Laterality Blood specimen 06/25/2014 7:02 PM 015 7:02 (specimen) EDT PM EDT Petar Arriola MD POINT OF CARE TEST ORDERABLE S Performing Organization Address City/State/Z[place] [address] CERNER MILLENNIUM POCT Glucose (06/25/2014 4:20 PM EDT) athologist Signature POC Glucose 128 60 - 199 CERNER mg/dL MILLENNIUM Comment: Supplemental ranges: <140 mg/dL before meals <180 mg/dL all other times of the day Specimen Anatomical Collection Method Collection Time Receive d Time (Source) Location / / Volume Laterality Blood specimen 06/25/2014 4:20 PM 015 4:20 (specimen) EDT PM EDT Petar Arriola MD POINT OF CARE TEST ORDERABLE S Performing Organization Address City/State/[place] [address] CERNER MILLENNIUM (ABNORMAL) Hemogram (06/25/2014 3:01 PM EDT) P athologist Signature WBC 10.9 (H) 4.0 - 10.0 CERNER x10(3)/mcL MILLENNIUM RBC 3.50 (L) 3.93 - CERNER 5.22 MILLENNIUM x10(6)/mcL Hemoglobin 9.2 (L) 11.2 - CERNER 15.7 gm/dL MILLENNIUM Comment: Patient Transfused Hematocrit 29.1 (L) 34.0 - 45.0 % CERNER MILLENNI UM MCV 83.1 79.0 - 94.0 fL CERNER MILLENNI UM MCH 26.3 (L) 26.6 - 32.2 pg CERNER MILLENNI UM MCHC 31.6 (L) 32.0 - 36.5 gm/dL CERNER MILLE NNIUM Platelets 326 145 - 370 x10(3)/mcL CERNER NC LLENNIUM RDWSD 51.8 (H) 35.0 - 46.0 fL CERNER MILLENNI UM RDWCV 17.0 (H) 10.9 - 14.4 % CERNER MILLENNIU M MPV 8.9 (L) 9.0 - 12.0 fL CERNER MILLENNIU M Specimen Anatomical Collection Method Collection Time Receive d Time (Source) Location / / Volume Laterality Blood specimen 06/25/2014 3:01 PM 015 3:18 (specimen) EDT PM EDT Resulting Agency Comment Spec In Lab Petar Arriola MD HEMATOLOGY ORDERABLES Performing Organization Address City/State/ZIP Code Phon e Number [place] [phone] CERNER MILLENNIUM Transfuse RBC (06/25/2014 1:40 PM EDT) Petar Arriola MD NURSING TREATMENT ORDERABLES - BLOOD ADMIN Transfuse RBC (06/25/2014 1:40 PM EDT) Petar Arriola MD NURSING TREATMENT ORDERABLES - BLOOD ADMIN POCT Glucose (06/25/2014 11:44 AM EDT) P athologist Signature POC Glucose 144 60 - 199 CERNER mg/dL MILLENNIUM Comment: Supplemental ranges: <140 mg/dL before meals <180 mg/dL all other times of the day Specimen Anatomical Collection Method Collection Time Receive d Time (Source) Location / / Volume Laterality Blood specimen 06/25/2014 11:44 5 (specimen) AM EDT 11:44 AM EDT Petar Arriola MD POINT OF CARE TEST ORDERABLE S Performing Organization Address City/State/Z[place] [address] CERNER MILLENNIUM Transfuse RBC (06/25/2014 9:37 AM EDT) Petar Arriola MD NURSING TREATMENT ORDERABLES - BLOOD ADMIN POCT Glucose (06/25/2014 7:05 AM EDT) P athologist Signature POC Glucose 137 60 - 199 CERNER mg/dL [facility] Comment: Supplemental ranges: <140 mg/dL before meals <180 mg/dL all other times of the day Specimen Anatomical Collection Method Collection Time Receive d Time (Source) Location / / Volume Laterality Blood specimen 06/25/2014 7:05 AM 015 7:05 (specimen) EDT AM EDT Petar Arriola MD POINT OF CARE TEST ORDERABLE S Performing Organization Address City/State/ZIP Code Phon e Number [address] CERTARYN MILLENNIUM Prepare RBC (06/25/2014 5:55 AM EDT) P athologist Signature Dispensed? [facility] Specimen Anatomical Collection Method Collection Time Receive d Time (Source) Location / / Volume Laterality Blood specimen 06/25/2014 5:55 AM 015 5:51 (specimen) EDT AM EDT Resulting Agency Comment Spec In Lab Petar Arriola MD BLOOD BANK ORDERABLES Performing Organization Address City/State/ZIP [place] [address] CERNER MILLENNIUM Prepare RBC (06/25/2014 5:52 AM EDT) P athologist Signature Dispensed? Yes CERNER [facility] Specimen Anatomical Collection Method Collection Time Receive d Time (Source) Location / / Volume Laterality Blood specimen No Charge / 06/25/2014 5:52 AM 015 5:52 (specimen) Unknown EDT AM EDT Resulting Agency Comment Spec In Lab Ranulfo Canchola MD BLOOD BANK ORDERABLES Performing Organization Address City/[facility]/ZIP Code Phon e Number [address] CERNER MILLENNIUM POCT Glucose (06/25/2014 3:38 AM EDT) P athologist Signature POC Glucose 132 60 - 199 CERNER mg/dL MILLENNIUM Comment: Supplemental ranges: <140 mg/dL before meals <180 mg/dL all other times of the day Specimen Anatomical Collection Method Collection Time Receive d Time (Source) Location / / Volume Laterality Blood specimen 06/25/2014 3:38 AM 015 3:38 (specimen) EDT AM EDT Petar Arriola MD POINT OF CARE TEST ORDERABLE S Performing Organization Address City/[facility]/ZIP Code Phon e Number [address] CERNER MILLENNIUM (ABNORMAL) Differential, Automated (06/25/2014 3:38 AM EDT) Patholo gist Method Time Signature Neutrophils % 67.1 % CERNER MILLENNIUM Neutr Abs (ANC) 7.18 (H) 1.50 - CERNER 6.30 MILLENNIUM x10(3)/mc L Lymphocytes % 17.8 % CERNER MILLENNIUM Lymphocytes Abs 1.9 1.0 - 3.6 CERNER x10(3)/mc MILLENNIUM L Monocytes % 10.4 % CERNER MILLENNIUM Monocyte Abs 1.1 (H) 0.2 - 1.0 CERNER x10(3)/mc MILLENNIUM L Eosinophils % 4.3 % CERNER MILLENNIUM Eosinophils Abs 0.5 0.0 - 0.5 CERNER x10(3)/mc MILLENNIUM L Basophils % 0.2 % CERNER MILLENNIUM Basophils Abs 0.0 0.0 [...] Location / / Volume Laterality Blood specimen 06/25/2014 3:38 AM 015 4:09 (specimen) EDT AM EDT Resulting Agency Comment Spec In Lab Petar Arriola MD HEMATOLOGY ORDERABLES Performing Organization Address City/State/[place] [address] CERNER MILLENNIUM (ABNORMAL) Hemogram (06/25/2014 3:38 AM EDT) P athologist Signature WBC 10.7 (H) 4.0 - 10.0 CERNER x10(3)/mcL MILLENNIUM RBC 2.49 (L) 3.93 - CERNER 5.22 MILLENNIUM x10(6)/mcL Hemoglobin 6.2 (L) 11.2 - CERNER 15.7 gm/dL MILLENNIUM Hematocrit 20.6 (L) 34.0 - CERNER 45.0 % MILLENNIUM MCV 82.7 79.0 - CERNER 94.0 fL MILLENNIUM MCH 24.9 (L) 26.6 - CERNER 32.2 pg MILLENNIUM MCHC 30.1 (L) 32.0 - CERNER 36.5 gm/dL MILLENNIUM Platelets 294 145 - 370 CERNER x10(3)/mcL MILLENNIUM RDWSD 56.3 (H) 35.0 - CERNER 46.0 fL MILLENNIUM RDWCV 18.7 (H) 10.9 - CERNER 14.4 % MILLENNIUM MPV 9.0 9.0 - 12.0 CERNER fL MILLENNIUM Specimen Anatomical Collection Method Collection Time Receive d Time (Source) Location / / Volume Laterality Blood specimen 06/25/2014 3:38 AM 015 4:09 (specimen) EDT AM EDT Resulting Agency Comment Spec In Lab Petar Arriola MD HEMATOLOGY ORDERABLES Performing Organization Address [facility] [place] [address] CERNER MILLENNIUM (ABNORMAL) Prothrombin Time (06/25/2014 3:38 AM EDT) P athologist Signature PT 21.7 (H) 12.5 - 15.5 CERNER sec MILLENNIUM Comment: Transfusion Committee Guidelines: INR less than 2.0, PTT less than OR equal to 43.5 seconds, or Fibrinogen greater t pompa or equal to 100 mg/dl indicate adequate procoagulant activity for hemos tasis in patients without underlying bleeding disorders. INR 1.8 (H) 0.9 - 1.1 CERNER MILLENNIUM Specimen Anatomical Collection Method Collection Time Receive d Time (Source) Location / / Volume Laterality Blood specimen 06/25/2014 3:38 AM 015 4:09 (specimen) EDT AM EDT Resulting Agency Comment Spec In Lab Petar Arriola MD HEMATOLOGY ORDERABLES Performing Organization Address [facility] Phon e Number [address] [facility] MILLENNIUM (ABNORMAL) Basic Metabolic Panel (non-fasting) (06/25/2014 3:38 AM EDT) P athologist Signature Glucose Lvl 121 60 - 199 CERNER mg/dL MILLENNIUM Comment: Diabetes: >=200 mg/dL plus symp toms BUN 13 8 - 18 mg/dL CERNER MILLENNIUM Creatinine 0.94 0.70 - 1.20 mg/dL CERNER MILL ENNIUM Comment: Please note that the pediatric reference intervals supplied above were not validated at [facility]. Results from pediatri c patients should be interpreted in conjunction to the patient's age, height and muscle mass. Sodium 135 135 - 145 mmol/L CERNER HONG NIUM Potassium 3.7 3.5 - 5.0 mmol/L CERNER HONG NIUM Comment: Please note: ??Patients with WBC >100,00 0 may have falsely elevated Potassium levels. ??For accurate Potassium quantif ication in these patients send serum separator tube (gold top) for subsequent determinations. ??Contact the Clinical Chemistry Laboratory if there are any qu estions. Chloride 100 98 - 107 mmol/L CERNER MILLENN IUM CO2 23 22 - 31 mmol/L CERNER MILLENNI UM Anion Gap 12 5 - 15 mmol/L CERNER MILLENNIU M Calcium 7.6 (L) 8.5 - 10.5 mg/dL CERNER HONG NIUM Estimated GFR 59 (L) >=60 CERNER MILLENNIU M Comment: This estimated [...] the following links into your internet browser. [email or web address] [email or web address] Specimen Anatomical Collection Method Collection Time Receive d Time (Source) Location / / Volume Laterality Blood specimen 06/25/2014 3:38 AM 015 4:09 (specimen) EDT AM EDT Resulting Agency Comment Spec In Lab Petar Arriola MD CHEMISTRY ORDERABLES Performing Organization Address City/[facility]/[place]IP [place] [address] CERNER MILLENNIUM POCT Glucose (06/25/2014 12:06 AM EDT) P athologist Signature POC Glucose 135 60 - 199 CERNER mg/dL MILLENNIUM Comment: Supplemental ranges: <140 mg/dL before meals <180 mg/dL all other times of the day Specimen Anatomical Collection Method Collection Time Receive d Time (Source) Location / / Volume Laterality Blood specimen 06/25/2014 12:06 5 (specimen) AM EDT 12:06 AM EDT Petar Arriola MD POINT OF CARE TEST ORDERABLE S Performing Organization Address City/[facility]/[place] [address] CERNER MILLENNIUM POCT Glucose (06/24/2014 9:34 PM EDT) athologist Signature POC Glucose 156 60 - 199 CERNER mg/dL MILLENNIUM Comment: Supplemental ranges: <140 mg/dL before meals <180 mg/dL all other times of the day Specimen Anatomical Collection Method Collection Time Receive d Time (Source) Location / / Volume Laterality Blood specimen 06/24/2014 9:34 PM 015 9:34 (specimen) EDT PM EDT Petar Arriola MD POINT OF CARE TEST ORDERABLE S Performing Organization Address City/[facility]/ZIP [facility] Phon e Number [address] CERNER MILLENNIUM (ABNORMAL) POCT Glucose (06/24/2014 6:50 PM EDT) athologist Signature POC Glucose 247 (H) 60 - 199 CERNER mg/dL MILLENNIUM Comment: Supplemental ranges: <140 mg/dL before meals <180 mg/dL all other times of the day Specimen Anatomical Collection Method Collection Time Receive d Time (Source) Location / / Volume Laterality Blood specimen 06/24/2014 6:50 PM 015 6:50 (specimen) EDT PM EDT Petar Arriola MD POINT OF CARE TEST ORDERABLE S Performing Organization Address City/[facility]/ZIP [facility] [place] [address] CERNER MILLENNIUM POCT Glucose (06/24/2014 4:13 PM EDT) athologist Signature POC Glucose 136 60 - 199 CERNER mg/dL MILLENNIUM Comment: Supplemental ranges: <140 mg/dL before meals <180 mg/dL all other times of the day Specimen Anatomical Collection Method Collection Time Receive d Time (Source) Location / / Volume Laterality Blood specimen 06/24/2014 4:13 PM 015 4:13 (specimen) EDT PM EDT Petar Arriola MD POINT OF CARE TEST ORDERABLE S Performing Organization Address City/State/ZIP [place] [address] [facility] MILLENNIUM Blood culture (06/24/2014 12:09 PM EDT) [facility] Method Time Signature Blood Culture [facility] ? Patient Name: DINESH PEÑA ?Ordered By: PETAR ARRIOLA MILLENNIUM ? MR#: [id number] ?LOC: ??3WST ? /Sex: ??1940 (74 years), ? Female ? PROCEDURE: Blood Culture ?SOURCE: Blood ? COLLECTED: 06/24/2014 12:09 ? BODY SITE: Left Forearm ? STARTED: 06/24/2014 13:38 ?FREE TEXT SOURCE: #2 ? FINAL REPORT ? Final Report ? Verified:06/29/2014 15:01 ? No growth at 5 days. ? PRELIMINARY REPORT ? Preliminary Report ? Verified:06/28/2014 15:02 ? No growth at 4 days. ? Specimen Anatomical Collection Method Collection Time Receive d Time (Source) Location / / Volume Laterality Blood specimen STRUCTURE OF LEFT 06/24/2014 12:09 03/2 08/2014 1:38 (specimen) FOREARM / Unknown PM EDT PM EDT Comment: #2 Resulting Agency Comment Spec In Lab Petar Arriola MD MICROBIOLOGY - BLOOD ORDERAB LES Performing Organization Address City/State/ZIP Code [place] [address] [facility] Blood culture (06/24/2014 11:56 AM EDT) [facility] Method Time Signature Blood Culture CERNER ? Patient Name: DINESH PEÑA ?Ordered By: PETAR ARRIOLA [facility] ? MR#: [id number] ?LOC: ??3WST ? /Sex: ??1940 (74 years), ? Female ? PROCEDURE: Blood Culture ?SOURCE: Blood ? COLLECTED: 06/24/2014 11:56 ? BODY SITE: Right Antecubital ? STARTED: 06/24/2014 13:38 ?FREE TEXT SOURCE: #1 ? FINAL REPORT ? Final Report ? Verified:06/29/2014 15:01 ? No growth at 5 days. ? PRELIMINARY REPORT ? Preliminary Report ? Verified:06/28/2014 15:02 ? No growth at 4 days. ? Specimen Anatomical Location Collection Method Collection Time Received Time (Source) / Laterality / Volume Blood specimen ANTECUBITAL REGION 06/24/2014 11:56 1:38 (specimen) STRUCTURE / Unknown AM EDT PM EDT Comment: #1 Resulting Agency Comment Spec In Lab Petar Arriola MD MICROBIOLOGY - BLOOD ORDERAB LES Performing Organization Address City/[facility]/ZIP [place] [address] CERNER MILLENNIUM (ABNORMAL) Prealbumin (06/24/2014 11:56 AM EDT) P athologist Signature Prealbumin 7 (L) 20 - 40 CERNER mg/dL [facility] Comment: Prealbumin levels are generally lower in the pediatric population; adult concentrations are usually attained near puberty. Specimen Anatomical Collection Method Collection Time Receive d Time (Source) Location / / Volume Laterality Blood specimen 06/24/2014 11:56 5 (specimen) AM EDT 12:34 PM EDT Resulting Agency Comment Spec In Lab Petar Arriola MD CHEMISTRY ORDERABLES Performing Organization Address City/[facility] [place] [address] CERNER MILLENNIUM (ABNORMAL) CMP w/fasting Glucose (06/24/2014 11:56 AM EDT) P athologist Signature Glucose 131 (H) 65 - 99 CERNER Fasting mg/dL [facility] Comment: ?Fasting* Glucose Interpretive C riteria Normal ?65-99 mg/dL Impaired Fasting glucose ?100-125 mg/dL Consistent with Diabetes Mellitus ? >or= 126 mg/dL *Fasting is defined as no caloric intake for at least 8 hours In the absence of unequivocal hypergly cemia a plasma glucose value of >or= 126 mg/dL should be repeated on a subseq uent day. Diagnosis and Classification of Diabetes Mellitus, Position Statement from the [place] [employer]. ??Diabete s Care, Volume 33, Supplement 1, Apr 2009 BUN 10 8 - 18 mg/dL CERNER MILLENNIUM Creatinine 0.70 0.70 - 1.20 mg/dL CERNER MILL ENNIUM Comment: Please note that the pediatric reference intervals supplied above were not validated at [facility] [place]. Results from pediatri c patients should be interpreted in conjunction to the patient's age, height and muscle mass. Sodium 139 135 - 145 mmol/L CERNER HONG NIUM Potassium 4.1 3.5 - 5.0 mmol/L CERNER HONG NIUM Comment: Please note: ??Patients with WBC >100,00 0 may have falsely elevated Potassium levels. ??For accurate Potassium quantif ication in these patients send serum separator tube (gold top) for subsequent determinations. ??Contact the Clinical Chemistry Laboratory if there are any qu estions. Chloride 100 98 - 107 mmol/L CERNER MILLENN IUM CO2 25 22 - 31 mmol/L CERNER MILLENNI UM Anion Gap 14 5 - 15 mmol/L CERNER MILLENNIU M Calcium 8.4 (L) 8.5 - 10.5 mg/dL CERNER HONG NIUM Total Protein 5.9 (L) 6.1 - 8.0 gm/dL CERNER MIL LENNIUM Albumin 2.7 (L) 3.2 - 5.2 gm/dL CERNER MILLENN IUM AST 14 0 - 30 unit/L CERNER MILLENNIU M ALT 7 0 - 30 unit/L CERNER MILLENNIU M Alk Phos 58 40 - 104 unit/L CERNER MILLENN IUM Total Bilirubin 0.2 0.2 - 1.3 mg/dL CERNER M ILLENNIUM Bili, Direct 0.1 0.0 - 0.3 mg/dL CERNER MILL ENNIUM Estimated GFR >60 >=60 CERNER MILLENNIU M [...] the following links into your internet browser. [email or web address] [email or web address] Specimen Anatomical Collection Method Collection Time Receive d Time (Source) Location / / Volume Laterality Blood specimen 06/24/2014 11:56 5 (specimen) AM EDT 12:34 PM EDT Resulting Agency Comment Spec In Lab Petar Arriola MD CHEMISTRY ORDERABLES Performing Organization Address City/State/ZIP Code Phon e Number [address] CERNER MILLENNIUM POCT Glucose (06/24/2014 11:39 AM EDT) athologist Signature POC Glucose 150 60 - 199 CERNER mg/dL [facility] Comment: Supplemental ranges: <140 mg/dL before meals <180 mg/dL all other times of the day Specimen Anatomical Collection Method Collection Time Receive d Time (Source) Location / / Volume Laterality Blood specimen 06/24/2014 11:39 5 (specimen) AM EDT 11:39 AM EDT Petar Arriola MD POINT OF CARE TEST ORDERABLE S Performing Organization Address City/State/ZIP Code Phon e Number [address] CERNER MILLENNIUM POCT Glucose (06/24/2014 8:42 AM EDT) athologist Signature POC Glucose 148 60 - 199 CERNER mg/dL [facility] Comment: Supplemental ranges: <140 mg/dL before meals <180 mg/dL all other times of the day Specimen Anatomical Collection Method Collection Time Receive d Time (Source) Location / / Volume Laterality Blood specimen 06/24/2014 8:42 AM 015 8:42 (specimen) EDT AM EDT Petar Arriola MD POINT OF CARE TEST ORDERABLE S Performing Organization Address City/State/ZIP Code Phon e Number [address] CERNER MILLENNIUM Magnesium (06/24/2014 5:25 AM EDT) athologist Signature Magnesium 0.74 0.69 - 1.07 CERNER mmol/L MILLENNIUM Specimen Anatomical Collection Method Collection Time Receive d Time (Source) Location / / Volume Laterality Blood specimen Venous Draw / 06/24/2014 5:25 AM 2014 5:32 (specimen) Unknown EDT AM EDT Resulting Agency Comment Spec In Lab Petar Arriola MD CHEMISTRY ORDERABLES Performing Organization Address City/[facility] Phon e Number [address] CERNER MILLENNIUM Nucleated Red Blood Cells (06/24/2014 5:25 AM EDT) P athologist Signature nRBC % Auto 0.0 % CERNER MILLENNIUM nRBC Abs Auto 0.000 0.000 - CERNER 0.012 MILLENNIUM x10(3)/mcL Specimen Anatomical Collection Method Collection Time Receive d Time (Source) Location / / Volume Laterality Blood specimen 06/24/2014 5:25 AM 015 5:32 (specimen) EDT AM EDT Resulting Agency Comment Spec In Lab Petar Arriola MD HEMATOLOGY ORDERABLES Performing Organization Address City/[facility] Phon e Number [address] CERNER MILLENNIUM (ABNORMAL) Differential, Automated (06/24/2014 5:25 AM EDT) Patholo gist Method Time Signature Neutrophils % 70.9 % CERNER MILLENNIUM Neutr Abs (ANC) 6.93 (H) 1.50 - CERNER 6.30 MILLENNIUM x10(3)/mc L Lymphocytes % 18.0 % CERNER MILLENNIUM Lymphocytes Abs 1.8 1.0 - 3.6 CERNER x10(3)/mc MILLENNIUM L Monocytes % 9.5 % CERNER MILLENNIUM Monocyte Abs 0.9 0.2 - 1.0 CERNER x10(3)/mc MILLENNIUM L Eosinophils % 1.0 % CERNER MILLENNIUM Eosinophils Abs 0.1 0.0 - 0.5 CERNER x10(3)/mc MILLENNIUM L Basophils % 0.3 % CERNER MILLENNIUM Basophils Abs 0.0 0.0 - 0.2 CERNER x10(3)/mc MILLENNIUM L Immature Gran % 0.30 % CERNER MILLENNIUM Comment: Immature granulocytes(IG's)percentage an d absolute count will include metamyelocytes, myelocytes, and promyelo cytes. Blood smears from CBCs yielding IG's will be scanned manually for concor danthomas. If this scan disagrees with the automated IG or if promyelocytes are not ed, a manual differential will be performed. Peggy Gran Abs 0.03 0.00 - 0.05 x10(3)/mcL CER NER MILLENNIUM Specimen Anatomical Collection Method Collection Time Receive d Time (Source) Location / / Volume Laterality Blood specimen 06/24/2014 5:25 AM 015 5:32 (specimen) EDT AM EDT Resulting Agency Comment Spec In Lab Petar Arriola MD HEMATOLOGY ORDERABLES Performing Organization Address City/State/[place] [address] CERNER MILLENNIUM (ABNORMAL) Hemogram (06/24/2014 5:25 AM EDT) P athologist Signature WBC 9.8 4.0 - 10.0 CERNER x10(3)/mcL MILLENNIUM RBC 2.94 (L) 3.93 - CERNER 5.22 MILLENNIUM x10(6)/mcL Hemoglobin 7.3 (L) 11.2 - CERNER 15.7 gm/dL MILLENNIUM Hematocrit 23.8 (L) 34.0 - CERNER 45.0 % MILLENNIUM MCV 81.0 79.0 - CERNER 94.0 fL MILLENNIUM MCH 24.8 (L) 26.6 - CERNER 32.2 pg MILLENNIUM MCHC 30.7 (L) 32.0 - CERNER 36.5 gm/dL MILLENNIUM Platelets 295 145 - 370 CERNER x10(3)/mcL MILLENNIUM RDWSD 55.9 (H) 35.0 - CERNER 46.0 fL MILLENNIUM RDWCV 18.5 (H) 10.9 - CERNER 14.4 % MILLENNIUM MPV 8.8 (L) 9.0 - 12.0 CERNER fL MILLENNIUM Specimen Anatomical Collection Method Collection Time Receive d Time (Source) Location / / Volume Laterality Blood specimen 06/24/2014 5:25 AM 015 5:32 (specimen) EDT AM EDT Resulting Agency Comment Spec In Lab Petar Arriola MD HEMATOLOGY ORDERABLES Performing Organization Address [facility] [place] [address] CERNER MILLENNIUM (ABNORMAL) Prothrombin Time (06/24/2014 5:25 AM EDT) athologist Signature PT 15.9 (H) 12.5 - 15.5 CERNER sec MILLENNIUM Comment: Transfusion Committee Guidelines: INR less than 2.0, PTT less than OR equal to 43.5 seconds, or Fibrinogen greater t pompa or equal to 100 mg/dl indicate adequate procoagulant activity for hemos tasis in patients without underlying bleeding disorders. INR 1.2 (H) 0.9 - 1.1 CERNER MILLENNIUM Specimen Anatomical Collection Method Collection Time Receive d Time (Source) Location / / Volume Laterality Blood specimen 06/24/2014 5:25 AM 015 5:32 (specimen) EDT AM EDT Resulting Agency Comment Spec In Lab Petar Arriola MD HEMATOLOGY ORDERABLES Performing Organization Address [facility] [place] [address] CERNER MILLENNIUM (ABNORMAL) Basic Metabolic Panel (non-fasting) (06/24/2014 5:25 AM EDT) P athologist Signature Glucose Lvl 118 60 - 199 CERNER mg/dL MILLENNIUM Comment: Diabetes: >=200 mg/dL plus symp toms BUN 11 8 - 18 mg/dL CERNER MILLENNIUM Creatinine 0.61 (L) 0.70 - 1.20 mg/dL CERNER MILL ENNIUM Comment: Please note that the pediatric reference intervals supplied above were not validated at [facility]. Results from pediatri c patients should be interpreted in conjunction to the patient's age, height and muscle mass. Sodium 138 135 - 145 mmol/L CERNER HONG NIUM Potassium 4.1 3.5 - 5.0 mmol/L CERNER HONG NIUM Comment: Please note: ??Patients with WBC >100,00 0 may have falsely elevated Potassium levels. ??For accurate Potassium quantif ication in these patients send serum separator tube (gold top) for subsequent determinations. ??Contact the Clinical Chemistry Laboratory if there are any qu estions. Chloride 103 98 - 107 mmol/L CERNER MILLENN IUM CO2 25 22 - 31 mmol/L CERNER MILLENNI UM Anion Gap 10 5 - 15 mmol/L CERNER MILLENNIU M [...] the following links into your internet browser. [email or web address] [email or web address] Specimen Anatomical Collection Method Collection Time Receive d Time (Source) Location / / Volume Laterality Blood specimen 06/24/2014 5:25 AM 015 5:32 (specimen) EDT AM EDT Resulting Agency Comment Spec In Lab Petar Arriola MD CHEMISTRY ORDERABLES Performing Organization Address City/State/[place] [address] CERNER MILLENNIUM XR pelvis 1 or 2 views (06/23/2014 5:18 PM EDT) Anatomical Region Laterality Modality Pelvis N/A Radiographic Imaging Specimen (Source) Anatomical Collection Method Collection Time Re ceived Time Location / / Volume Laterality 06/23/2014 5:18 PM EDT Impressions 06/23/2014 5:28 PM EDT IMPRESSION: No immediate post arthroplasty complicat ion identified. Narrative 06/23/2014 5:28 PM EDT EXAMINATION: PELVIS 1 OR 2 VIEWS/XPORT CLINICAL HISTORY: post op in pacu TECHNIQUE: Portable AP view the pelvis o n 06/23/2014 at 1715 hours. COMPARISON: 03/09/2014. 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 No immediate p ost arthroplasty complication such as fracture is identified. Adjacent postope rative soft tissue changes and cutaneous surgical berkley are noted. No appreciab le change in the imaged portion of the right hip arthroplasty. Procedure Note Park Scott MD - 06/23/2014Formatt ing of this note might be different from the original. EXAMINATION: PELVIS 1 OR 2 VIEWS/XPORT CLINICAL HISTORY: post op in pacu TECHNIQUE: Portable AP view the pelvis o n 06/23/2014 at 1715 hours. COMPARISON: 03/09/2014. 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 No immediate p ost arthroplasty complication such as fracture is identified. Adjacent postope rative soft tissue changes and cutaneous surgical berkley are noted. No appreciab le change in the imaged portion of the right hip arthroplasty. IMPRESSION IMPRESSION: No immediate post arthroplasty complicat ion identified. Petar Arriola MD IMG DX ORDERABLES Anaerobic Culture (06/23/2014 4:37 PM EDT) [facility] Method Time Signature Anaerobic CERNER Culture ? Patient Name: DINESH PEÑA ?Ordered By: PETAR ARRIOLA [facility] ? MR#: [id number] ?LOC: ??3WST ? /Sex: ??1940 (74 years), ? Female ? PROCEDURE: Anaerobic Culture ?SOURCE: Joint ? COLLECTED: 06/23/2014 16:37 ? BODY SITE: Left Hip ? STARTED: 06/23/2014 17:03 ?FREE TEXT SOURCE: Left femoral canal ? FINAL REPORT ? Final Report ? Verified:06/27/2014 12:46 ? No anaerobic organisms isolated ? PRELIMINARY REPORT ? Preliminary Report ? Verified:06/24/2014 16:00 ? No anaerobic organisms isolated to date ? Specimen Anatomical Collection Method Collection Time Receive d Time (Source) Location / / Volume Laterality Joint sample LEFT HIP REGION 06/23/2014 4:37 PM 2014 5:02 (specimen) STRUCTURE / EDT PM EDT Unknown Comment: LEFT FEMORAL CANAL Resulting Agency Comment Spec In Lab Petar Arriola MD MICROBIOLOGY - GENERAL ORDER TERESA Performing Organization Address City/State/[place] [address] [facility] [place] Joint Culture (06/23/2014 4:36 PM EDT) Component Value Ref Test Analysis Performed At [facility] gist Range Method Time Signature Joint CERNER Culture ? Patient Name: DINESH PEÑA ?Ordered By: PETAR ARRIOLA ? MR#: [id number] ?LOC: ??3WST ? /Sex: ??1940 (74 years), ? Female ? PROCEDURE: Joint Culture ?SOURCE: Joint ? COLLECTED: 06/23/2014 16:36 ? BODY SITE: Left Hip ? STARTED: 06/23/2014 17:02 ?FREE TEXT SOURCE: Left femoral canal ? STAINS / PREPARATIONS ? Gram Stain Report ? Verified:06/23/2014 18:08 ? Few White Blood Cells seen ? No microorganisms seen. ? FINAL REPORT ? Final Report ? Verified:06/27/2014 08:58 ? Rare Staphylococcus aureus : two morphologies ? Susceptibilities previously reported ? PRELIMINARY REPORT ? Preliminary Report ? Verified:06/26/2014 10:22 ? Rare Staphylococcus aureus : two morphologies ? Susceptibilities previously reported ? Specimen Anatomical Collection Method Collection Time Receive d Time (Source) Location / / Volume Laterality Joint sample LEFT HIP REGION 06/23/2014 4:36 PM 2014 5:02 (specimen) STRUCTURE / EDT PM EDT Unknown Comment: LEFT FEMORAL CANAL Resulting Agency Comment Spec In Lab Petar Arriola MD MICROBIOLOGY - GENERAL ORDER TERESA Performing Organization Address City/State/[place] [address] [facility] Anaerobic Culture (06/23/2014 2:45 PM EDT) [facility] Method Time Signature Anaerobic CERNER Culture ? Patient Name: DINESH PEÑA ?Ordered By: PETAR ARRIOLA ? MR#: [id number] ?LOC: ??3WST ? /Sex: ??1940 (74 years), ? Female ? PROCEDURE: Anaerobic Culture ?SOURCE: Joint ? COLLECTED: 06/23/2014 14:45 ? BODY SITE: Left Hip ? STARTED: 06/23/2014 16:44 ?FREE TEXT SOURCE: Left acetabulum ? FINAL REPORT ? Final Report ? Verified:06/27/2014 12:45 ? No anaerobic organisms isolated ? PRELIMINARY REPORT ? Preliminary Report ? Verified:06/24/2014 15:58 ? No anaerobic organisms isolated to date ? Specimen Anatomical Collection Method Collection Time Receive d Time (Source) Location / / Volume Laterality Joint sample LEFT HIP REGION 06/23/2014 2:45 PM 2014 4:44 (specimen) STRUCTURE / EDT PM EDT Unknown Comment: LEFT ACETABULUM Resulting Agency Comment Spec In Lab Petar Arriola MD MICROBIOLOGY - GENERAL ORDER TERESA Performing Organization Address City/State/[place] [address] [facility] Joint Culture (06/23/2014 2:45 PM EDT) Component Value Ref Test Analysis Performed At Patholo gist Range Method Time Signature Joint Culture CERNER ? Patient Name: DINESH PEÑA ?Ordered By: PETAR ARRIOLA MILLENNIUM ? MR#: [id number] ?LOC: ??3WST ? /Sex: ??1940 (74 years), ? Female ? PROCEDURE: Joint Culture ?SOURCE: Joint ? COLLECTED: 06/23/2014 14:45 ? BODY SITE: Left Hip ? STARTED: 06/23/2014 16:44 ?FREE TEXT SOURCE: Left acetabulum ? STAINS / PREPARATIONS ? Gram Stain Report ? Verified:06/23/2014 18:17 ? Cytocentrifuge Gram Stain performed ? White Blood Cells seen ? Rare Gram Positive Cocci seen ? Results called to and read back by Meron Monzon 18:16:57 ? FINAL REPORT ? Final Report ? Verified:06/27/2014 08:57 ? Few Staphylococcus aureus : two morphologies ? PRELIMINARY REPORT ? Preliminary Report ? Verified:06/26/2014 10:21 ? Few Staphylococcus aureus : two morphologies ? Patient: DINESH PEÑA ? MR#: [id number] ? SUSCEPTIBILITY RESULTS ? Staphylococcus aureus ? CARYN Interp ? Ampicillin ?R ? Cefazolin ? S ? Ceftriaxone ? S ? Ciprofloxacin ? S ? Clindamycin ? S ? Erythromycin ?S ? Gentamicin(1) ? S ? Levofloxacin ?S ? Oxacillin ? S ? Penicillin(2) ? R ? Trimethoprim/Sulfa ?S ? Tetracycline ?S ? Vancomycin ?S ? Staphylococcus aureus #2 ? CARYN Interp ? Ampicillin ?R ? Cefazolin ? S ? Ceftriaxone ? S ? Ciprofloxacin ? S ? Clindamycin ? S ? Erythromycin ?S ? Gentamicin(1) ? S ? Levofloxacin ?S ? Oxacillin ? S ? Penicillin(2) ? R ? Trimethoprim/Sulfa ?S ? Tetracycline ?S ? Vancomycin ?S ? S=Susceptible ??I=Intermediate ??R=Resistant ??NA=Not Applicable ? DDS=Dose dependent-susceptible ??NS=Non-susceptible ? Patient: DINESH PEÑA ? MR#: [id number] ? FOOTNOTES ? (1) ? Gentamicin is not appropriate for [place]-therapy. ? (2) ? Penicillin resistant, Nafcillin susceptible Staphylococci are resistant to ? B-lactamase labile ? Penicillins including Ampicillin and Piperacillin, but susceptible to B- ? lactamase parrish Penicillins ? (Nafcillin), B-lactamase inhibitor combinations, firs t and second ? generation Cephalosporins including ? Cefazolin, and to Cefepime and Meropenem. ? Specimen Anatomical Collection Method Collection Time Receive d Time (Source) Location / / Volume Laterality Joint sample LEFT HIP REGION 06/23/2014 2:45 PM 2014 4:44 (specimen) STRUCTURE / EDT PM EDT Unknown Comment: LEFT ACETABULUM Resulting Agency Comment Spec In Lab Petar Arriola MD MICROBIOLOGY - GENERAL ORDER TERESA Performing Organization Address City/State/[place] [address] [facility] [place] Anaerobic Culture (06/23/2014 2:45 PM EDT) [facility] Method Time Signature Anaerobic CERNER Culture ? Patient Name: DINESH PEÑA ?Ordered By: PETAR ARRIOLA [facility] ? MR#: [id number] ?LOC: ??3WST ? /Sex: ??1940 (74 years), ? Female ? PROCEDURE: Anaerobic Culture ?SOURCE: Joint ? COLLECTED: 06/23/2014 14:45 ? BODY SITE: Left Hip ? STARTED: 06/23/2014 17:04 ?FREE TEXT SOURCE: Behind poly liner left hip ? FINAL REPORT ? Final Report ? Verified:06/27/2014 12:47 ? No anaerobic organisms isolated ? PRELIMINARY REPORT ? Preliminary Report ? Verified:06/24/2014 16:01 ? No anaerobic organisms isolated to date ? Specimen Anatomical Collection Method Collection Time Receive d Time (Source) Location / / Volume Laterality Joint sample LEFT HIP REGION 06/23/2014 2:45 PM 2014 5:04 (specimen) STRUCTURE / EDT PM EDT Unknown Comment: BEHIND POLY LINER LEFT HIP Resulting Agency Comment Spec In Lab Petar Arriola MD MICROBIOLOGY - GENERAL ORDER TERESA Performing Organization Address City/State/ZIP [place] [address] CERN[facility] MILLENNIUM Joint Culture (06/23/2014 2:45 PM EDT) Component Value Ref Test Analysis Performed At [facility] Range Method Time Signature Joint CERNER Culture ? Patient Name: DINESH PEÑA ?Ordered By: PETAR ARRIOLA MILL[facility]NIUM ? MR#: [id number] ?LOC: ??3WST ? /Sex: ??1940 (74 years), ? Female ? PROCEDURE: Joint Culture ?SOURCE: Joint ? COLLECTED: 06/23/2014 14:45 ? BODY SITE: Left Hip ? STARTED: 06/23/2014 17:04 ?FREE TEXT SOURCE: Behind poly liner left hip ? STAINS / PREPARATIONS ? Gram Stain Report ? Verified:06/23/2014 18:16 ? Cytocentrifuge Gram Stain performed ? White Blood Cells seen ? Few Gram Positive Cocci seen ? Results called to and read back by Meron Monzon 18:16:37 ? FINAL REPORT ? Final Report ? Verified:06/27/2014 08:58 ? Few Staphylococcus aureus : two morphologies ? Susceptibilities previously reported ? PRELIMINARY REPORT ? Preliminary Report ? Verified:06/26/2014 10:22 ? Few Staphylococcus aureus : two morphologies ? Susceptibilities previously reported ? Specimen Anatomical Collection Method Collection Time Receive d Time (Source) Location / / Volume Laterality Joint sample LEFT HIP REGION 06/23/2014 2:45 PM 2014 5:04 (specimen) STRUCTURE / EDT PM EDT Unknown Comment: BEHIND POLY LINER LEFT HIP Resulting Agency Comment Spec In Lab Petar Arriola MD MICROBIOLOGY - GENERAL ORDER TERESA Performing Organization Address City/State/[place] [address] [facility] [place] Anaerobic Culture (06/23/2014 1:46 PM EDT) [facility] Method Time Signature Anaerobic CERNER Culture ? Patient Name: DINESH PEÑA ?Ordered By: PETAR ARRIOLA ? MR#: [id number] ?LOC: ??3WST ? /Sex: ??1940 (74 years), ? Female ? PROCEDURE: Anaerobic Culture ?SOURCE: Joint ? COLLECTED: 06/23/2014 13:46 ? BODY SITE: Left Hip ? STARTED: 06/23/2014 16:44 ?FREE TEXT SOURCE: Specimen: left hip tissue ? FINAL REPORT ? Final Report ? Verified:06/27/2014 12:44 ? No anaerobic organisms isolated ? PRELIMINARY REPORT ? Preliminary Report ? Verified:06/24/2014 15:57 ? No anaerobic organisms isolated to date ? Specimen Anatomical Collection Method Collection Time Receive d Time (Source) Location / / Volume Laterality Joint sample LEFT HIP REGION 06/23/2014 1:46 PM 2014 4:43 (specimen) STRUCTURE / EDT PM EDT Unknown Comment: SPECIMEN: LEFT HIP TISSUE Resulting Agency Comment Spec In Lab Petar Arriola MD MICROBIOLOGY - GENERAL ORDER TERESA Performing Organization Address City/State/[place] [address] [facility] [place] Joint Culture (06/23/2014 1:46 PM EDT) Component Value Ref Test Analysis Performed At [facility] Range Method Time Signature Joint CERNER Culture ? Patient Name: DINESH PEÑA ?Ordered By: PETAR ARRIOLA ? MR#: [id number] ?LOC: ??3WST ? /Sex: ??1940 (74 years), ? Female ? PROCEDURE: Joint Culture ?SOURCE: Joint ? COLLECTED: 06/23/2014 13:46 ? BODY SITE: Left Hip ? STARTED: 06/23/2014 16:43 ?FREE TEXT SOURCE: Specimen: left hip tissue ? STAINS / PREPARATIONS ? Gram Stain Report ? Verified:06/23/2014 18:18 ? Many White Blood Cells seen ? Few Gram Positive Cocci seen ? Results called to and read back by Meron Monzon 18:18:17 ? FINAL REPORT ? Final Report ? Verified:06/27/2014 08:56 ? Few Staphylococcus aureus : two morphologies ? Susceptibilities previously reported ? PRELIMINARY REPORT ? Preliminary Report ? Verified:06/26/2014 10:20 ? Few Staphylococcus aureus : two morphologies ? Susceptibilities previously reported ? Specimen Anatomical Collection Method Collection Time Receive d Time (Source) Location / / Volume Laterality Joint sample LEFT HIP REGION 06/23/2014 1:46 PM 2014 4:43 (specimen) STRUCTURE / EDT PM EDT Unknown Comment: SPECIMEN: LEFT HIP TISSUE Resulting Agency Comment Spec In Lab Petar Arriola MD MICROBIOLOGY - GENERAL ORDER TERESA Performing Organization Address City/State/[place] [address] [place] [place] Anaerobic Culture (06/23/2014 1:41 PM EDT) [facility] Method Time Signature Anaerobic CERNER Culture ? Patient Name: DINESH PEÑA ?Ordered By: PETAR ARRIOLA ? MR#: [id number] ?LOC: ??3WST ? /Sex: ??1940 (74 years), ? Female ? PROCEDURE: Anaerobic Culture ?SOURCE: Joint ? COLLECTED: 06/23/2014 13:41 ? BODY SITE: Left Hip ? STARTED: 06/23/2014 16:42 ?FREE TEXT SOURCE: Specimen: left hip joint ? FINAL REPORT ? Final Report ? Verified:06/27/2014 12:48 ? No anaerobic organisms isolated ? PRELIMINARY REPORT ? Preliminary Report ? Verified:06/24/2014 15:56 ? No anaerobic organisms isolated to date ? Specimen Anatomical Collection Method Collection Time Receive d Time (Source) Location / / Volume Laterality Joint sample LEFT HIP REGION 06/23/2014 1:41 PM 2014 4:42 (specimen) STRUCTURE / EDT PM EDT Unknown Comment: SPECIMEN: LEFT HIP JOINT Resulting Agency Comment Spec In Lab Petar Arriola MD MICROBIOLOGY - GENERAL ORDER TERESA Performing Organization Address City/State/[place] [address] OBDULIONER MILLENNIUM Joint Culture (06/23/2014 1:41 PM EDT) Component Value Ref Test Analysis Performed At [facility] Range Method Time Signature Joint CERNER Culture ? Patient Name: DINESH PEÑA ?Ordered By: PETAR ARRIOLA MILLENNIUM ? MR#: [id number] ?LOC: ??3WST ? /Sex: ??1940 (74 years), ? Female ? PROCEDURE: Joint Culture ?SOURCE: Joint ? COLLECTED: 06/23/2014 13:41 ? BODY SITE: Left Hip ? STARTED: 06/23/2014 16:42 ?FREE TEXT SOURCE: Specimen: left hip joint ? STAINS / PREPARATIONS ? Gram Stain Report ? Verified:06/23/2014 18:17 ? Cytocentrifuge Gram Stain performed ? White Blood Cells seen ? Few Gram Positive Cocci seen ? Results called to and read back by Meron Monzon 18:17:25 ? FINAL REPORT ? Final Report ? Verified:06/27/2014 08:56 ? Few Staphylococcus aureus : two morphologies ? Susceptibilities previously reported ? PRELIMINARY REPORT ? Preliminary Report ? Verified:06/26/2014 10:19 ? Few Staphylococcus aureus : two morphologies ? Susceptibilities previously reported ? Specimen Anatomical Collection Method Collection Time Receive d Time (Source) Location / / Volume Laterality Joint sample LEFT HIP REGION 06/23/2014 1:41 PM 2014 4:42 (specimen) STRUCTURE / EDT PM EDT Unknown Comment: SPECIMEN: LEFT HIP JOINT Resulting Agency Comment Spec In Lab Petar Arriola MD MICROBIOLOGY - GENERAL ORDER TERESA Performing Organization Address City/State/[place] [address] CERNER MILLENNIUM POCT Glucose (06/23/2014 11:17 AM EDT) athologist Signature POC Glucose 112 60 - 199 CERNER mg/dL [facility] Comment: Supplemental ranges: <140 mg/dL before meals <180 mg/dL all other times of the day Specimen Anatomical Collection Method Collection Time Receive d Time (Source) Location / / Volume Laterality Blood specimen 06/23/2014 11:17 5 (specimen) AM EDT 11:17 AM EDT Petar Arriola MD POINT OF CARE TEST ORDERABLE S Performing Organization Address City/State/ZIP Code Phon e Number [address] [facility] [place] documented in this encounter Visit Diagnoses Diagnosis 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, 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, initial encounter documented in this encounter Administered Medications Inactive Administered Medications - up to 3 most recent administrations Medication Order MAR Action Action Date Dose Rate Site acetaminophen (TYLENOL) tablet Given 06/27/2014 6:49 AM EDT 1,00 0 mg 1,000 mg 1,000 mg, Oral, EVERY 8 HOURS SCHEDULED, First dose on Sat06/23/14 at 2200, Until Discontinued, Maximum dose of acetaminophen is 4000 mg from all sources in 24 hours., Recovery (Recovery-Hospital Unit), Routine Given 06/26/2014 1:22 PM EDT 1,000 mg Given 06/26/2014 6:16 AM EDT 1,000 mg acetaminophen (TYLENOL) tablet 650 mg Given 06/23/2014 8:00 AM EDT 650 mg 650 mg, Oral, ONCE, 1 dose, On Sat06/23/14 at 1215, Administer on arrival in Same Day Program, Day of Surgery (Day of Procedure), Routine bisacodyl (DULCOLAX) EC tablet 10 mg Given 06/26/2014 8:50 AM EDT 10 mg 10 mg, Oral, 2 TIMES DAILY PRN, Starting on Sat06/23/14 at 2131, Until 06/27/14 at 1522, Constipation, Administer if needed per patient's routine or if no bowel movement within 48 hours to achieve: 1) One bowel movement at least every 48 hours, AND 2) Without straining. If multiple bowel medications ordered, consider adding bisacodyl if polyethylene glycol (MIRALAX), docusate/senna, or lactulose not sufficient., Recovery (Recovery-Hospital Unit), Routine ceFAZolin (ANCEF) 2g in dextrose 5% 50 Given 06/27/2014 6:49 AM EDT 2 g 100 mL/hr mL 2 g, Intravenous, EVERY 8 HOURS, First dose (after last modification) on Sat06/25/14 at 0600, Until Discontinued, Administer over 30 Minutes, Indication for (Active or Suspected): Bone/Joint Given 06/26/2014 10:24 PM EDT 2 g 100 mL/hr Given 06/26/2014 1:22 PM EDT 2 g 100 mL/hr celecoxib (celeBREX) capsule 200 mg Given 06/24/2014 9:35 PM EDT 200 mg 200 mg, Oral, EVERY 12 HOURS SCHEDULED (2 times per day), 4 doses, First dose on Sat06/23/14 at 2300, Last dose on Sat06/25/14 at 0900, Recovery (Recovery-Hospital Unit), Routine Given 06/24/2014 9:47 AM EDT 200 mg Given 06/23/2014 10:39 PM EDT 200 mg celecoxib (celeBREX) capsule 400 mg Given 06/23/2014 12:20 PM EDT 400 mg 400 mg, Oral, ONCE, 1 dose, On Sat06/23/14 at 1215, Administer on arrival to Same Day Program, Day of Surgery (Day of Procedure), Routine cyclobenzaprine (FLEXERIL) tablet 10 mg Given 06/27/2014 11:18 AM EDT 10 mg 10 mg, Oral, 3 TIMES DAILY PRN, Starting on Sat06/27/14 at 0133, Until Sat06/27/14 at 1522, Muscle spasms, Routine cyclobenzaprine (FLEXERIL) tablet 5 mg Given 06/26/2014 8:56 PM EDT 5 mg 5 mg, Oral, 3 TIMES DAILY PRN, Starting on Sat06/25/14 at 0606, Until Sat06/27/14 at 0133, Muscle spasms, Routine Given 06/25/2014 9:46 PM EDT 5 mg diaZEPam (VALIUM) tablet 2 mg Given 06/27/2014 1:21 AM EDT 2 mg 2 mg, Oral, EVERY 6 HOURS PRN, Starting on Sat06/25/14 at 0907, Until Sat06/27/14 at 1522, Anxiety, Sleep, Agitation, muscle spasms, Routine diaZEPam (VALIUM) tablet 5 mg Given 06/24/2014 9:35 PM EDT 5 mg 5 mg, Oral, ONCE PRN, 1 dose, Starting on Sat06/24/14 at 2049, Until Sat06/24/14 at 2135, for muscle spasm @ night, Routine esomeprazole (NexIUM) capsule 20 mg Given 06/27/2014 8:59 AM EDT 20 mg 20 mg, Oral, DAILY, 14 doses, First dose on Sat06/24/14 at 0900, Last dose on Sat07/07/14 at 0900, Recovery (Recovery-Hospital Unit), Routine Given 06/26/2014 8:47 AM EDT 20 mg Given 06/25/2014 9:41 AM EDT 20 mg gabapentin (NEURONTIN) capsule 300 mg Given 06/23/2014 12:20 PM EDT 300 mg 300 mg, Oral, ONCE, 1 dose, On Sat06/23/14 at 1215, Administer on arrival in Same Day Program, Day of Surgery (Day of Procedure), Routine gabapentin (NEURONTIN) capsule 300 mg Given 06/26/2014 8:56 PM EDT 300 mg 300 mg, Oral, NIGHTLY, First dose on Sat06/23/14 at 2300, Until Discontinued, Recovery (Recovery-Hospital Unit), Routine Given 06/25/2014 8:55 PM EDT 300 mg Given 06/24/2014 9:35 PM EDT 300 mg hyaluronidase (ovine) (VITRASE) injection 1-10 Given 0 06/26/2014 8:55 AM EDT 1 mL mL 1-10 mL, Subcutaneous, ONCE, 1 dose, On Sat06/26/14 at 0845, Hyaluronidase is supplied in a 1-mL vial at a concentration of 200 units/mL. Dilute with 9 mL of normal saline. This yields the desired concentration of 20 units/mL. Draw up 1 mL increments of the diluted solution into a 1-mL syringe with a 26-g needle. Instill 0.2 -mL aliquots of the solution at least every 2 - 3 centimeters or five evenly spaced aliquots subcutaneously around the periphery of the infiltrated area. Use a new 26-gauge needle for each injection. This is best done within one hour of the extravasation. Discard the remaining solution., STAT HYDROmorphone (DILAUDID) 1 New Syringe/Cartridge 06/23/2014 5:14 PM E DT 30 mg mg/mL FILLER OPERATOR 30 mL Intravenous, FILLER OPERATOR ONLY, Starting on Sat06/23/14 at 1700, Until Sat06/24/14 at 0809, Recovery (Recovery-Hospital Unit) HYDROmorphone (DILAUDID) tablet 2 mg Given 06/24/2014 11:01 PM EDT 2 mg 2 mg, Oral, EVERY 4 HOURS PRN, Starting on Sat06/23/14 at 2203, Until Sat06/27/14 at 1522, Pain, for breakthrough not relieved by oxycodone, Routine HYDROmorphone (DILAUDID) tablet 4 mg Given 06/23/2014 12:20 PM EDT 4 mg 4 mg, Oral, ONCE, 1 dose, On Sat06/23/14 at 1215, Please give in pre-op holding prior to surgery., Day of Surgery (Day of Procedure), Routine insulin aspart (novoLOG) VIAL injection 1-4 Given 05/31 7:05 PM EDT 1 Units Units 1-4 Units, Subcutaneous, EVERY 4 HOURS SCHEDULED, First dose on Sat06/24/14 at 0830, Until Discontinued, CORRECTION BOLUS Sensitive to insulin lean patient or total daily dose of all insulin needed to achieve glycemic control less than 30 units BG 140 - 160 Give 1 unit BG 161 - 200 Give 2 units BG 201 - 240 Give 3 units BG greater than 240, give 4 units and recheck BG in 2 hours. If BG remains greater than 240, repeat 4 units (no more than three times) & call for new basal insulin orders. If less than 240 after two hours, give no insulin and resume prior schedule. Given 06/26/2014 4:30 PM EDT 1 Units Given 06/26/2014 11:57 AM EDT 1 Units ketorolac (TORADOL) injection 7.5 mg Given 06/24/2014 5:43 PM EDT 7.5 mg 7.5 mg, Intravenous, EVERY 8 HOURS PRN, 3 doses, Starting on Sat06/23/14 at 1729, Until Sat06/25/14 at 0910, Pain, For severe pain, Recovery (Recovery-Hospital Unit), Routine Given 06/23/2014 5:35 PM EDT 7.5 mg lactated ringers 500 mL IV bolus Given 06/24/2014 7:46 PM EDT Intravenous, ONCE, 1 dose, On Regla 06/24/14 at 1915 lactated ringers infusion 1,000 New Bag 06/24/2014 3:47 AM EDT 1,000 mLs 100 mL/hr mL 1,000 mL, at 100 mL/hr, Intravenous, CONTINUOUS, Starting on Sat06/23/14 at 1700, Until Sat06/24/14 at 0809, Recovery (Recovery-Hospital Unit) New Bag 06/23/2014 5:25 PM EDT 1,000 mLs 100 mL/hr lactobacillus (BACID) tablet 1 tablet Given 06/27/2014 8:59 AM EDT 1 tablet 1 tablet, Oral, DAILY, First dose on Regla 06/24/14 at 0900, Until Discontinued, Routine Given 06/26/2014 8:47 AM EDT 1 tablet Given 06/25/2014 9:41 AM EDT 1 tablet losartan (COZAAR) tablet 50 mg Given 06/27/2014 8:59 AM EDT 50 mg 50 mg, Oral, DAILY, First dose (after last modification) on Sat06/25/14 at 0900, Until Discontinued, Hold for SBP <100., Routine Given 06/26/2014 8:47 AM EDT 50 mg multivitamin Gbgj-Qd-LP-Min (THERAPEUTIC-M) Given 05/31 8:59 AM EDT 1 tablet 27-0.4 mg tablet 1 tablet 1 tablet, Oral, DAILY, First dose on Regla 06/24/14 at 0900, Until Discontinued, Recovery (Recovery-Hospital Unit) Given 06/26/2014 8:47 AM EDT 1 tablet Given 06/25/2014 9:41 AM EDT 1 tablet oxyCODONE (ROXICODONE) immediate release Given 06/27/2014 12:07 PM EDT 10 mg tablet 10 mg 10 mg, Oral, EVERY 4 HOURS PRN, Starting on Sat06/23/14 at 2203, Until Sat06/27/14 at 1522, Pain, severe pain (7-10), May give an additional 5 mg in 30 minutes once if pain not relieved., Routine Given 06/27/2014 12:49 AM EDT 10 mg Given 06/26/2014 10:17 AM EDT 10 mg oxyCODONE (ROXICODONE) immediate release Given 06/25/2014 11:58 AM EDT 5 mg tablet 5 mg 5 mg, Oral, EVERY 4 HOURS PRN, Starting on Sat06/23/14 at 2203, Until Sat06/27/14 at 1522, Pain, mild to moderate pain (1-6), May give an additional 5 mg in 30 minutes once if pain not relieved., Routine Given 06/24/2014 9:35 PM EDT 5 mg Given 06/24/2014 11:39 AM EDT 5 mg polyethylene glycol (MIRALAX) packet 17 g Given 06/26/2014 8:47 AM EDT 17 g 17 g, Oral, 2 TIMES DAILY, First dose on Sat06/23/14 at 2200, Until Discontinued, Recovery (Recovery-Hospital Unit), Routine Given 06/25/2014 9:02 PM EDT 17 g Given 06/25/2014 9:40 AM EDT 17 g polyethylene glycol (MIRALAX) packet 17 g Given 06/26/2014 3:39 PM EDT 17 g 17 g, Oral, ONCE, 1 dose, On 06/26/14 at 1600, Routine senna-docusate (PERICOLACE) 8.6-50 mg per Given 2014 8:59 AM EDT 2 tablets tablet 2 tablet 2 tablet, Oral, 2 TIMES DAILY, First dose on Sat06/23/14 at 2200, Until Discontinued, Recovery (Recovery-Hospital Unit), Routine Given 06/26/2014 8:47 AM EDT 2 tablets Given 06/25/2014 8:55 PM EDT 2 tablets sodium chloride 0.9 % flush 5 mL Given 06/26/2014 9:00 PM EDT 5 mLs 5 mL, Intravenous, 2 TIMES DAILY, First dose on Sat06/23/14 at 2200, Until Discontinued, Recovery (Recovery-Hospital Unit), Routine Given 06/26/2014 8:48 AM EDT 5 mLs Given 06/25/2014 8:56 PM EDT 5 mLs sodium chloride 0.9% 1,000 mL IV bolus Given 06/24/2014 3:22 PM EDT 800 mL/hr at 800 mL/hr, Intravenous, ONCE, 1 dose, On Regla 06/24/14 at 1545 tranexamic acid (CYKLOKAPRON) Given 06/23/2014 12:15 PM EDT 1,20 3 mg 200 mL/hr 1,203 mg in sodium chloride 0.9% 112.03 mL 1,203 mg (15 mg/kg/dose ? 80.2 kg), Intravenous, ONCE, 1 dose, On 06/23/14 at 1215, Administer over 30 Minutes, Dilute tranexamic acid dose in 100 mL sodium chloride 0.9% prior to administration. For patients less than or equal to 200 kg infuse over 30 minutes. For patients greater than 200 kg infuse over 60 minutes., Day of Surgery (Day of Procedure) vancomycin 1 g in dextrose 5% 200 mL Given 06/23/2014 12:15 PM EDT 1,000 mg 1,000 mg (1 g), Intravenous, EVERY 8 HOURS, 1 dose, First dose on Sat06/23/14 at 1215, Administer over 60 Minutes, Do not exceed 1 gram/hour. Vancomycin should be administered within 2 hours prior to incision. Re-dose after 8 hours., Day of Surgery (Day of Procedure), Indication for (Active or Suspected): Prophylaxis vancomycin 1 g in dextrose 5% 200 mL Given 06/24/2014 9:37 PM EDT 1,000 mg 1,000 mg (1 g), Intravenous, EVERY 12 HOURS, 14 doses, First dose on Sat06/23/14 at 2100, Last dose on Sat06/30/14 at 0900, Administer over 60 Minutes, Adjust to 8 hours from intraoperative dose. Do not exceed 1 gram/hour. * Beta-lactam based antibiotics (eg. Ampicillin, Cefazolin, Aztreonam) should be administered within 4 hours of the preceding intraoperative dose. * Vancomycin, Flouroquinolones, Clindamycin, Gentamicin, and Metronidazole should be administered within 8 hours of the preceding intraoperative dose., Recovery (Recovery-Hospital Unit), Indication for (Active or Suspected): Prophylaxis Given 06/24/2014 9:44 AM EDT 1,000 mg Given 06/23/2014 10:36 PM EDT 1,000 mg warfarin (COUMADIN) tablet 2.5 mg Given 06/25/2014 4:43 PM EDT 2.5 mg 2.5 mg, Oral, ONCE, 1 dose, On Sat06/25/14 at 1700, Routine warfarin (COUMADIN) tablet 2.5 mg Given 06/26/2014 4:30 PM EDT 2.5 mg 2.5 mg, Oral, ONCE, 1 dose, On Sat06/26/14 at 1700, Routine warfarin (COUMADIN) tablet 5 mg Given 06/23/2014 10:39 PM EDT 5 mg 5 mg, Oral, ONCE, 1 dose, On Sat06/23/14 at 2300, Recovery (Recovery-Hospital Unit), Routine warfarin (COUMADIN) tablet 5 mg Given 06/24/2014 5:43 PM EDT 5 mg 5 mg, Oral, ONCE, 1 dose, On Regla 06/24/14 at 1700, Recovery (Recovery-Hospital Unit), Routine documented in this encounter Active and Recently Administered Medications Times are shown in EDT. Scheduled Medication Order 06/25/2014 06/26/2014 06/27/2014 acetaminophen (TYLENOL) tablet 1,000 mg 0607 (Given - Provider: Santa Massey)1409 (Given - Provider: Gabrielle Lutz RN)2146 (Given - Provider: Donovan Love RN) 0616 (Given - Provider: Donovan Love RN )1322 (Given - Provider: Jahaira West RN)2200 (Not Given - Provider: Donovan Love RN - Reason: Patient Unable - Comment: sleeping) 0649 (Given - Provider: Donovan Love RN) 1,000 mg, Oral, EVERY 8 HOURS SCHEDULED, First dose on Sat06/23/14 at 2200, Until Discontinued, Maximum dose of acetaminophen is 4000 mg from all sources in 24 hours., Recovery (Recovery-Hospital Unit), Routine ceFAZolin (ANCEF) 2g in dextrose 5% 50 mL 0633 (Given - Provider: Scarlett Brian RN)1409 (Given - Provider: Gabrielle Lutz RN)2200 (Given - Provider: Donovan Love RN) 0616 (Not Given - Provider: Donovan Love RN - Reason: Loss of access)1322 (Given - Provider: Jahaira West, RN)2224 (Given - Provider: Donovan Love, ALINA) 0649 (Given - Provider: Donovan Love RN ) 2 g, Intravenous, EVERY 8 HOURS, First d ose on Sat06/25/14 at 0600, Until Discontinued, for 30 Minutes, Indication for (Active or Suspected): Bone/Joint esomeprazole (NexIUM) capsule 20 mg 0941 (Given - Prov ider: Janel Pena RN) 0847 (Given - Provider: Jahaira West, ALINA) 0859 (Giv en - Provider: Patsy Shaikh RN) 20 mg, Oral, DAILY, 14 doses, First dose on Sat06/24/14 at 0900, Last dose on Sat07/07/14 at 0900, Recovery (Recovery-Hospital Unit), Routine gabapentin (NEURONTIN) capsule 300 mg 2054 (Given - Provider : Donovan Love RN) 2055 (Given - Provider: Donovan Love RN) 300 mg, Oral, NIGHTLY, First dose on Sat06/23/14 at 2300, Until Discontinued, Recovery (Recovery-Hospital Unit), Routine hyaluronidase (ovine) (VITRASE) injection 1-10 mL (COMPLETED ) 854 (Given - Provider: Katy Rojas RN) 1-10 mL, Subcutaneous, ONCE, 1 dose, 06/26/14 at 0845, Hyaluronidase is supplied in a 1-mL vial at a concentration of 200 units/mL. Dilute with 9 mL of normal saline. This yields the desired concentr ation of 20 units/mL. Draw up 1 mL incre ments of the diluted solution into a 1- mL syringe with a 26-g needle. Instill 0.2 -mL aliquots of the solution at least every 2 - 3 centimeters or five evenly [place] aliquots subcutaneously around the p eriphery of the infiltrated area. Use a new 26-gauge needle for each injection. This is best done within one hour of the extravasation. Discard the remaining solution., STAT insulin aspart (novoLOG) VIAL injection 1-4 Units (CAN CELED) 0000 (Not Given - Provider: Santa Massey - Reason: Order parameters not met)0400 (Not Given - Provider: Santa Massey - Reason: Order parameters not met)0756 (Not Given - Provider: Zoe Branch RN - Reason: Order parameters not met) 0000 (Not Given - Provider: Donovan Love RN - Reason: Contraindicated)0428 (Given - Provider: Donovan Love RN)0729 (Not Given - Provider: Jahaira West RN - Reason: Order parameters not met)1157 (Given - Provider: Jahaira West RN) 0000 (Not Given - Provider: Donovan Love RN - Reason: Contraindicated)0400 (Not Given - Provider: Donovan Love RN - Reason: Contraindicated)0800 (Not Given - Provider: Jahaira West RN - Reason: Order parameters not met) 1-4 Units, Subcutaneous, EVERY 4 HOURS S CHEDULED, First dose on Regla 06/24/14 at 0830, Until Discontinued, CORRECTION BOLUS Sensitive to insulin lean patient or total daily dose of all insulin needed 1200 (Given - Provider: Zoe Branch RN - Comment: BG 144)1633 (Not Given - Provider: Zoe Branch RN - Reason: Patient/family refused)2055 (Given - Provider: Donovan Love RN) 1630 (Given - Provider: Jahaira West RN)1905 (Given - Provider: Jahaira West RN) 1200 (Not Given - Provider: Patsy Shaikh RN - Reason: Order parameters not met) to achieve glycemic control less than 30 units BG 140 - 160 Give 1 unit BG 161 - 200 Give 2 units BG 201 - 240 Give 3 units BG greater than 240, give 4 units and recheck BG in 2 hours. If BG remains gre ater than 240, repeat 4 units (no more t pompa three times) & call for new basal insulin orders. If less than 240 after two hours, give no insulin and resume prior schedule., Routine lactobacillus (BACID) tablet 1 tablet (CANCELED) 0941 (Given - Provider: Janel Pena RN) 0847 (Given - Provider: Jahaira West, ALINA) 0859 (Giv en - Provider: Patsy Shaikh, ALINA) 1 tablet, Oral, DAILY, First dose on Regla 06/24/14 at 0900, Until Discontinued, Routine losartan (COZAAR) tablet 50 mg (CANCELED) 0900 (Not Gi abigail - Provider: Janel Pena RN - Reason: See comment - Comment: BP 93/39) 0847 (Given - Provider: Jahaira West, ALINA) 0859 (Given - Provider: Patsy Shaikh, RN) 50 mg, Oral, DAILY, First dose on Fri at 0900, Until Discontinued, Hold for SBP <100., Routine multivitamin Krpo-Yc-HV-Min (THERAPEUTIC -M) 27-0.4 mg tablet 1 tablet (CANCELED) 0941 (Given - Provider: Janel Pena RN) 0847 (Gi abigail - Provider: Jahaira West, ALINA) 0859 (Given - Provider: Patsy Shaikh, ALINA) 1 tablet, Oral, DAILY, First dose on Regla 06/24/14 at 0900, Until Discontinued, Recovery (Recovery-Hospital Unit), Routine polyethylene glycol (MIRALAX) packet 17 g 0940 (Given - Provider: Janel Pena RN)2101 (Given - Provider: Donovan Love RN) 0847 (Given - Provider: Jahaira West, ALINA)2100 (Not Given - Provider: Donovan Love RN - Reason: Contraindicated) 0900 (Not Given - Provider: Patsy Shaikh RN - Reason: Patient/family refused) 17 g, Oral, 2 TIMES DAILY, First dose on Sat06/23/14 at 2200, Until Discontinued, Recovery (Recovery-Hospital Unit), Routine polyethylene glycol (MIRALAX) packet 17 g (COMPLETED) 153 (Given - Provider: Miri Sandhu, ALINA) 17 g, Oral, ONCE, 1 dose, 06/26/14 at 1600, Routine senna-docusate (PERICOLACE) 8.6-50 mg per tablet 2 tab let (CANCELED) 0941 (Given - Provider: Janel Pena RN)2054 (Given - Provider: Donovan Love, ALINA) 0847 (Given - Provider: Jahaira West, ALINA)2100 (Not Given - Provider: Donovan Love RN - Reason: Contraindicated) 0859 (Given - Provider: Patsy Shaikh RN) 2 tablet, Oral, 2 TIMES DAILY, First dos e on Sat06/23/14 at 2200, Until Discontinued, Recovery (Recovery-Hospital Unit), Routine sodium chloride 0.9 % flush 5 mL (CANCELED) 0942 (Give n - Provider: Janel Pena RN)2056 (Given - Provider: Donovan Love, RN) 0848 (Given - Provider: Jahaira West, ALINA)2100 (Given - Provider: Donovan Love RN) 0900 (Not Given - Provider: Patsy Shaikh RN - Reason: See comment - Comment: actively infusing) 5 mL, Intravenous, 2 TIMES DAILY, First dose on Sat06/23/14 at 2200, Until Discontinued, Recovery (Recovery-[facility]ospital Unit), Routine warfarin (COUMADIN) tablet 2.5 mg (COMPLETED) 1643 (Gi abigail - Provider: Zoe Branch RN) 2.5 mg, Oral, ONCE, 1 dose, 06/25/14 at 1700, Routine warfarin (COUMADIN) tablet 2.5 mg (COMPLETED) 1630 (Given - Provider: Jahaira West, ALINA) 2.5 mg, Oral, ONCE, 1 dose, 06/26/14 at 1700, Routine PRN Medication Order 06/25/2014 06/26/2014 06/27/2014 bisacodyl (DULCOLAX) EC tablet 10 mg 085 0 (Given - Provider: Jahaira Wset, ALINA) 10 mg, Oral, 2 TIMES DAILY PRN, Starting Sat06/23/14 at 2131, Until 06/27/14 at 1522, Constipation, Administer if needed per patient's routine or if no bowel movement within 48 hours to achieve: 1) O ne bowel movement at least every 48 hour s, AND 2) Without straining. If multiple bowel medications ordered, consider adding bisacodyl if polyethylene glycol (MIRALAX), docusate/senna, or lactulose not s ufficient., Recovery (Recovery-Hospital Unit), Routine bisacodyl (DULCOLAX) suppository 10 mg 10 mg, Rectal, DAILY PRN, Starting Sat at 2131, Until 06/27/14 at 1522, Constipation, Administer if needed per patient's routine or if no bowel movement within 48 hours to achieve: 1) One bow el movement at least every 48 hours, AND 2) Without straining. If multiple bowel medications ordered, consider adding bisacodyl if polyethylene glycol (MIRALAX), docusate/senna, or lactulose not suffici ent. If patient unable to take PO, may g fabian MS if ordered, Recovery (Recovery- Hospital Unit), Routine cyclobenzaprine (FLEXERIL) tablet 10 mg 1118 (Given - Provider: Patsy Shaikh RN - Comment: spasms are the 01/08. otherwise pain is controled) 10 mg, Oral, 3 TIMES DAILY PRN, Starting 06/27/14 at 0133, Until 06/27/14 at 1522, Muscle spasms, Routine cyclobenzaprine (FLEXERIL) tablet 5 mg (CANCELED) 2145 (Given - Provider: Donovan Love RN) 2055 (Given - Provider: Donovan Love RN) 5 mg, Oral, 3 TIMES DAILY PRN, Starting Sat06/25/14 at 0606, Until 06/27/14 at 0133, Muscle spasms, Routine diaZEPam (VALIUM) tablet 2 mg 04 21 (Given - Provider: Donovan Love RN) 2 mg, Oral, EVERY 6 HOURS PRN, Starting Sat06/25/14 at 0907, Until 06/27/14 at 1522, Anxiety, Sleep, Agitation, muscle spasms, Routine lactulose (CHRONULAC) 20 gram/30 mL oral solution 20-40 g 20-40 g (30-60 mL), Oral, DAILY PRN, Sta rting 06/23/14 at 2131, Until 06/27/14 at 1522, Constipation, Administer if needed per patient's routine or if no bowel movement within 48 hours. Start with 30 mL orally to achieve: 1) One bowel m ovement at least every 48 hours, AND 2) Without straining. If no bowel movement within 24 hours, may increase to 60 mL orally once daily PRN. If multiple bowel me dications ordered, consider adding lactu lose first or if polyethylene glycol (MIRALAX) or docusate/senna not sufficient., Recovery (Recovery-Hospital Unit), Routine oxyCODONE (ROXICODONE) immediate release tablet 10 mg 0131 (Given - Provider: Santa Massey)1158 (See Alternative - Provider: Zoe Branch RN)2053 (Given - Provider: Donovan Love RN) 06 (Given - Provider: Donovan Love RN )1017 (Given - Provider: Jahaira West, ALINA) 004 (Given - Provider: Donovan Love RN)1207 (Given - Provider: Patsy Shaikh RN - Comment: premedicating for discharge transfer) 10 mg, Oral, EVERY 4 HOURS PRN, Starting 06/23/14 at 2203, Until 06/27/14 at 1522, Pain, severe pain (7-10), May give an additional 5 mg in 30 minutes once if pain not relieved., Routine oxyCODONE (ROXICODONE) immediate release tablet 5 mg ( CANCELED) 0131 (See Alternative - Provider: Santa Massey)1158 (Given - Provider: Zoe Branch RN)2053 (See Alternative - Provider: Donovan Love RN) 06 (See Alternative - Provider: Donovan Love RN)101 (See Alternative - Provider: Jahaira West, ALINA) 0049 (See Alternative - Provider: Donovan Love RN)1207 (See Alternative - Provider: Patsy Shaikh RN) 5 mg, Oral, EVERY 4 HOURS PRN, Starting 06/23/14 at 2203, Until 06/27/14 at 1522, Pain, mild to moderate pain (1-6), May give an additional 5 mg in 30 minutes once if pain not relieved., Routine documented in this encounter Care Teams Therapeutic Recreation Leader Relationship Specialty Start Date End Date Steven Galan MD PCP - General 12/13/11 10/25/15 [address] [place] [address] documented as of this encounter
--- OUTSIDE RECORDS SUMMARY | 2021-10-09 21:48 | XMS_ITS | Encounter Summary ---
:1940 Author Organization [facility] [place] [address] Care Team Providers Name Role Phone Nayla Caputo MD Primary Care Provider Reason for Visit Reason Onset Date Comments Questions 08/03/2014 S/P explant Left hip joint prosthesis and placement of antibiotic-impregnat ed cement spacer, 06/23/14 (Dr. Arriola). Encounter Details Date Type Department Care Team Description 08/03/2014 Telephone Orthopaedics at [facility] Swetha Dempsey, Questions (S/P explant [facility] María redman [place] [address] prosthesis and [phone] placement of antibiotic-impr egnated cement spacer, 06/23/14 [...] Telephone Encounter - Swetha Dempsey RN - 08/03/2014 10:43 AM EDT Caller: Marcia Otero Learning Needs Assessment Reviewed: No (06/14/14). Last visit: 08/02/14 Dr. Arriola and Татьяна Davidson, Subjective Patient presents with: Questions I have a few questions. Objective/Assessment 1) When can I stop the Coumadin? Now. Dr. Arriola spoke with your PCP about this also. 2) Can I stop the Lactobacillus? Now. Dr. Arriola also spoke with your PCP about this. 3) Does she have to put the compression stocking back on? She has not been wearing them. She repots that she does the pumping exercises twice daily and is up and about. No need to resume these as long as you are active and continuing to do your exercises. 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 Arriola). Plan Intervention/Plan/ Follow Up: 08/04/[address] Arriola today. He provided the above answers to the patient's questions. Ileft a message for Ms. Palma repeating the above answers to her questions. Patient knows how to contact the nurse if any further questions or concerns occur. Procedure: 09/20/14 left hip aspiration under fluoro and SDP. Next visit: 10/04/14 Dr. Arriola. Surgery: 10/19/14 Dr. Arriola - LEFT Hip reimplantation after antibiotic spacer, POSTERIOR approach. documented in this encounter Plan of Treatment Not on filedocumented as of this encounter Visit Diagnoses Not on filedocumented in this encounter Care Teams Associate Account Director Relationship Specialty Start Date End Date Nayla Caputo MD PCP - General 12/13/11 10/25/15 [address] [place] [address] documented as of this encounter
--- OUTSIDE RECORDS SUMMARY | 2021-10-09 21:48 | XMS_ITS | Encounter Summary ---
:1940 Author Organization [facility] Address [address] [place] [address] Care Team Providers Name Role Phone Nayla Caputo MD Primary Care Provider Encounter Details Date Type Department Care Team Description 08/02/2014 Hospital Encounter XRay at [facility] Debility, unspecified; [address] Pain of left lower extremity ; [place] [address] Prosthetic hip infection, gaitan bsequent encounter [phone] Social History Tobacco Use Types Packs/Day Years [...] Start Date End Date losartan (COZAAR) 50 Take 50 mg by 0 mg Tablet mouth. miconazole (MICOTIN) 2 Apply topically as 0 % Cream needed. white Apply topically as 0 petrolatum-mineral oil needed. (EUCERIN) Cream Blood-Glucose Meter 1 each by 60 each 3 06/28/2014 Misc Misc.(Non-Drug; Combo Route) route 2 times daily. [...] 2 times daily (with meals). warfarin (COUMADIN) Take 1 tablet by 0 10/22/2014 10/22/2014 2.5 mg Tablet mouth once for 1 dose. acetaminophen Take 2 tablets by 0 10/22/201409/30 (TYLENOL) 500 mg mouth every 8 Tablet hours. multivitamin Take 1 tablet by 0 10/22/20142014 Gium-Zu-OI-Min mouth daily. (THERAPEUTIC-M) 27-0.4 mg Tablet oxyCODONE (ROXICODONE) Take 1-2 tablets 24 tablet 0 015 11/29/2014 5 mg Tablet by mouth every 4 hours as needed for Pain (mild to moderate pain (1-5) take 5 mg (one tablet), moderate to severe pain (6-10) take 10 mg (2 tablets)). polyethylene glycol Take 17 g by mouth 0 10/23/19 15 01/31/2015 (MIRALAX) 17 gram 2 times daily. Powder in Packet naproxen (NAPROSYN) Take 1 tablet by 0 10/22/2014 11/29/2014 500 mg Tablet mouth 2 times daily (with meals) for 40 days. omeprazole (PRILOSEC) Take 1 capsule by 0 015 11/29/2014 20 mg Capsule, Delayed mouth daily for 40 Release(E.C.) days. acetaminophen Take 650 mg by 0 015 (TYLENOL) 650 mg mouth every 4 Tablet Sustained hours as needed Release for Pain. Do not exceed 6 tabs in 24 hours alum-mag Take 30 mLs by 0 09/20/2014 hydroxide-simeth mouth every 2 (MAALOX) 200-200-20 hours as needed mg/5 mL Suspension for Indigestion. docusate sodium Take 100 mg by 0 09/20 (COLACE) 100 mg mouth 2 times Capsule daily. ferrous sulfate 325 mg Take 325 mg by 0 11/29/2014 (65 mg iron) Tablet mouth daily (with breakfast). glycerin, adult, Place 1 0 09/21/19 15 Suppository suppository rectally as needed for Constipation. UNABLE TO FIND Med Name: Sodium 0 07/31 Chloride Saline 500ml bag and 50ml bag both by IV cefTRIAXone (ROCEPHIN) Inject into the 0 08/20/2014 2 gram/50 [address]gy[address] vein. 50 mls @@ 100mls/hr Q24H MAGNESIUM HYDROXIDE Take 30 mLs by 0 0 08/20/2014 (MILK OF MAGNESIA mouth daily as ORAL) needed. rOPINIRole (REQUIP) Take 0.25 mg by 0 10/26/2015 0.25 mg Tablet mouth 3 times daily. acetaminophen Take 2 tablets by 30 tablet 1 06/27/201409/30 (TYLENOL) 500 mg mouth every 8 Tablet hours. bisacodyl (DULCOLAX) 5 Take 2 tablets by 30 tablet 0 201409/20/2014 mg Tablet, Delayed mouth 2 times Release (E.C.) daily as needed for Constipation. bisacodyl (DULCOLAX) Place 1 60 suppository 3 06/27/2014 08/20/2014 10 mg Suppository suppository rectally daily as needed. cyclobenzaprine Take 1 tablet by 30 tablet 0 06/27/2014 (FLEXERIL) 10 mg mouth 3 times Tablet daily as needed for Muscle spasms. polyethylene glycol Take 17 g by mouth 14 each 0 06/28/19 15 10/18/2014 (MIRALAX) 17 gram 2 times daily. Powder in Packet warfarin (COUMADIN) 5 Take 0-2 tablets 0 06/28/19 15 08/04/2014 mg Tablet by mouth daily. Take as directed by your rehab physician. Goal INR 2-3. Take for 6 weeks from surgery (August 04). documented as of this encounter Plan of Treatment Not on filedocumented as of this encounter Procedures Procedure Name Priority Date/Time Associated Diagnosis Comme nts XR PELVIS AND Routine 08/02/2014 9:40 AM Debility, Results for this LATERAL HIP EDT unspecified procedure are in Pain of left lower the resul ts extremity section. Prosthetic hip infection, subsequent encounter documented in this encounter Results XR pelvis and lateral hip (08/02/2014 9:40 AM EDT) Anatomical Region Laterality Modality Pelvis, Hip N/A Radiographic Imaging Specimen (Source) Anatomical Collection Method Collection Time Re ceived Time Location / / Volume Laterality 08/02/2014 9:40 AM EDT Impressions 08/02/2014 11:55 AM EDT IMPRESSION: Unchanged appearance of left hip spacer This report was reviewed by Blanka guerrero at 08/02/2014 11:50 AM Film and interpretation reviewed by the attending Narrative 08/02/2014 11:55 AM EDT EXAMINATION: PELVIS+LATERAL HIP/LEFT CLINICAL HISTORY: charisse explant TECHNIQUE: AP radiograph of the pelvis a nd lateral radiograph of the left hip were performed. COMPARISON: Pelvis radiograph 06/23/2014 FINDINGS: Bilateral total hip arthroplasties. Recent explant of left arthroplasty whic h is replaced by a spacer. The appearance and alignment of hardware are unchanged. No periprosthetic fracture. Right total hip arthroplasty a ppears uncomplicated. Procedure Note Blanka Ervin MD - 08/02/2014Formatt ing of this note might be different from the original. EXAMINATION: PELVIS+LATERAL HIP/LEFT CLINICAL HISTORY: charisse explant TECHNIQUE: AP radiograph of the pelvis a nd lateral radiograph of the left hip were performed. COMPARISON: Pelvis radiograph 06/23/2014 FINDINGS: Bilateral total hip arthroplasties. Recent explant of left arthroplasty whic h is replaced by a spacer. The appearance and alignment of hardware are unchanged. No periprosthetic fracture. Right total hip arthroplasty a ppears uncomplicated. IMPRESSION IMPRESSION: Unchanged appearance of left hip spacer This report was reviewed by Blanka guerrero at 08/02/2014 11:50 AM Film and interpretation reviewed by the attending Petar Arriola MD IMG DX ORDERABLES documented in this encounter Visit Diagnoses Diagnosis Debility, unspecified Pain of left lower extremity Prosthetic hip infection, subsequent enc ounter documented in this encounter Care Teams Tire Center Manager Relationship Specialty Start Date End Date Nayla Caputo MD PCP - General 12/13/11 10/25/[address] [place] [address] documented as of this encounter
--- OUTSIDE RECORDS SUMMARY | 2021-10-09 21:48 | XMS_ITS | Encounter Summary ---
:1940 Author Organization [facility] [place] [address] Care Team Providers Name Role Phone Nayla Caputo MD Primary Care Provider Encounter Details Date Type Department Care Team Description 07/07/2014 Telephone Orthopaedics at [facility] Swetha Dempsey, [place] [address] Social History Tobacco Use Types Packs/Day [...] Telephone Encounter - Swetha Dempsey RN - 07/07/2014 4:14 PM EDT Surgery: S/P explant Left hip joint prosthesis and placement of antibiotic- impregnated cement spacer, 06/23/14 (Dr. Arriola). Call made within 2 weeks of discharge: Yes, I spoke with the patient. She is still at [facility] (Swing bed). Learning Needs Assessment Reviewed: No Is pain under control: yes. I did PT today without any Tylenol. I am doing well. Having bowel movements: yes Concerns with incision: no, incision looks good. The nurse is going to take the berkley out tonight. Has the [facility] been in contact: n/a, in rehab. Anticoagulation plan: Coumadin x4 weeks. Rehab facility: 06/27/14 Swing bed. Concerns: muscle spasms at night, manage by dangling on the bed for a while then they pass. Next visit: 07/30/14 Dr. Arriola. documented in this encounter Plan of Treatment Not on filedocumented as of this encounter Visit Diagnoses Not on filedocumented in this encounter Care Teams Microsoft Bi Consultant Relationship Specialty Start Date End Date Nayla Caputo MD PCP - General 12/13/11 10/25/15 [address] [place] [address] documented as of this encounter
--- OUTSIDE RECORDS SUMMARY | 2021-10-09 21:48 | XMS_ITS | Encounter Summary ---
:1940 Author Organization [facility] [place] [address] Care Team Providers Name Role Phone Nayla Caputo MD Primary Care Provider Encounter Details Date Type Department Care Team Description 07/22/2014 External Results Infectious Disease at [facility] MD Naomi [facility] [place] [address] INFECTIOUS DISEASE [phone] [place], [place] [address] (Wo rk) Social History Tobacco [...] on filedocumented in this encounter Care Teams Engineering Assistant Relationship Specialty Start Date End Date Nayla Caputo MD PCP - General 12/13/11 10/25/15 [address] [place] [address] documented as of this encounter
--- OUTSIDE RECORDS SUMMARY | 2021-10-09 21:48 | XMS_ITS | Encounter Summary ---
:1940 Author Organization [facility] [place] [address] Care Team Providers Name Role Phone Nayla Caputo MD Primary Care Provider Encounter Details Date Type Department Care Team Description 06/28/2014 Orders Only Endocrinology [place] Plascencia, JOE [facility] [place] [address] [facility]PT OF ENDOCRINOLOGY [phone] [place], [place] [address] (Wo rk) Social History Tobacco [...] on filedocumented in this encounter Care Teams Chief Data Officer Relationship Specialty Start Date End Date Nayla Caputo MD PCP - General 12/13/11 10/25/15 [address] [place] [address] documented as of this encounter
--- OUTSIDE RECORDS SUMMARY | 2021-10-09 21:48 | XMS_ITS | Encounter Summary ---
:1940 Author Organization [facility] [place] [address] Care Team Providers Name Role Phone Nayla Caputo MD Primary Care Provider Encounter Details Date Type Department Care Team Description 06/28/2014 Orders Only Endocrinology [place] Plascencia, JOE [facility] [place] [address] DEPT OF ENDOCRINOLOGY [phone] [place], [place] [address] (Wo rk) Social History Tobacco [...] on filedocumented in this encounter Care Teams 3D Technologist Relationship Specialty Start Date End Date Nayla Caputo MD PCP - General 12/13/11 10/25/15 [address] [place] [address] documented as of this encounter
--- OUTSIDE RECORDS SUMMARY | 2021-10-09 21:48 | XMS_ITS | Encounter Summary ---
:1940 Author Organization [facility] [address] Care Team Providers Name Role Phone Nayla Caputo MD Primary Care Provider Encounter Details Date Type Department Care Team Description 07/27/2014 External Results Infectious Disease at [facility] MD Naomi [facility] [place] [address] INFECTIOUS DISEASE [phone] [place], [place] [address] (Wo rk) Social History Tobacco [...] Date/Time Associated Diagnosis Comme nts EXTERNAL LAB INFECTIOUS Routine 07/26/2014 Resu lts for this DISEASE RESULTS PANEL proced ure are in the results section . documented in this encounter Results (ABNORMAL) Infectious Disease External Results (07/26/2014) Analysis Performed At Patho logist Time Signature WBC 7.79 (External Lab) Hemoglobin 9.6 12.0 - (EXTERNAL/ 16.0 ABN) Hematocrit 32.5 36.0 - (EXTERNAL/ 46.0 ABN) Platelets 227 (External Lab) Sed Rate 40 (EXTERNAL/ ABN) CRP High Sens 2.8 (External Lab) Sodium 142 137 - 147 (External Lab) Potassium 3.8 3.4 - 5.3 (External Lab) Specimen (Source) Anatomical Location Collection Method / Collectio n Time Received Time / Laterality Volume 07/26/2014 Narrative This result has an attachment that is no t available. Historical Provider POINT OF CARE TEST ORDERABLE S documented in this encounter Visit Diagnoses Not on filedocumented in this encounter Care Teams Office Machine Inspector Relationship Specialty Start Date End Date Nayla Caputo MD PCP - General 12/13/11 10/25/15 [address] [place] [address] documented as of this encounter
--- OUTSIDE RECORDS SUMMARY | 2021-10-09 21:48 | XMS_ITS | Encounter Summary ---
:1940 Author Organization [facility] [place] [address] Care Team Providers Name Role Phone Nayla Caputo MD Primary Care Provider Encounter Details Date Type Department Care Team Description 07/06/2014 External Results Infectious Disease at [facility] MD Naomi [facility] [place] [address] INFECTIOUS DISEASE [phone] [place], [place] [address] (Wo rk) Social History Tobacco [...] Diagnosis Comme nts EXTERNAL LAB INFECTIOUS Routine 07/05/2014 Resu lts for this DISEASE RESULTS PANEL proced ure are in the results section . EXTERNAL LAB INFECTIOUS Routine 07/02/2014 Resu lts for this DISEASE RESULTS PANEL proced ure are in the results section . EXTERNAL LAB INFECTIOUS Routine 06/30/2014 Resu lts for this DISEASE RESULTS PANEL proced ure are in the results section . documented in this encounter Results (ABNORMAL) Infectious Disease External Results (07/05/2014) Analysis Performed At Patho logist Time Signature WBC 8.86 (External Lab) Hemoglobin 8.8 12.0 - (EXTERNAL/ 16.0 ABN) Hematocrit 30.3 36.0 - (EXTERNAL/ 46.0 ABN) Platelets 490 (EXTERNAL/ ABN) Sed Rate 105 (EXTERNAL/ ABN) CRP High Sens 49.3 (EXTERNAL/ ABN) Sodium 140 137 - 147 (External Lab) Potassium 4.2 3.4 - 5.3 (External Lab) Creatinine 0.8 (External Lab) Specimen (Source) Anatomical Location Collection Method / Collectio n Time Received Time / Laterality Volume 07/05/2014 Narrative This result has an attachment that is no t available. Historical Provider POINT OF CARE TEST ORDERABLE S (ABNORMAL) Infectious Disease External Results (07/02/2014) athologist Signature WBC 10.11 (External Lab) Hemoglobin 8.5 12.0 - (EXTERNAL/A 16.0 BN) Hematocrit 28.5 36.0 - (EXTERNAL/A 46.0 BN) Platelets 461 (EXTERNAL/A BN) BUN 11 (External Lab) Creatinine 0.9 (External Lab) Sodium 140 137 - 147 (External Lab) Potassium 4.1 3.4 - 5.3 (External Lab) Specimen (Source) Anatomical Location Collection Method / Collectio n Time Received Time / Laterality Volume 07/02/2014 Narrative This result has an attachment that is no t available. Historical Provider POINT OF CARE TEST ORDERABLE S (ABNORMAL) Infectious Disease External Results (06/30/2014) [facility] WBC 7.09 (External Lab) Hemoglobin 8.3 12.0 - (EXTERNAL/ 16.0 ABN) Hematocrit 27.6 36.0 - (EXTERNAL/ 46.0 ABN) Platelets 406 (EXTERNAL/ ABN) Sed Rate >120 (EXTERNAL/ ABN) CRP High Sens 122.1 (EXTERNAL/ ABN) BUN 11 (External Lab) Creatinine 0.9 (External Lab) Specimen (Source) Anatomical Location Collection Method / Collectio n Time Received Time / Laterality Volume 06/30/2014 Narrative This result has an attachment that is no t available. Historical Provider POINT OF CARE TEST ORDERABLE S documented in this encounter Visit Diagnoses Not on filedocumented in this encounter Care Teams Service Desk Associate Relationship Specialty Start Date End Date Nayla Caputo MD PCP - General 12/13/11 10/25/15 [address] [place] [address] documented as of this encounter
--- OUTSIDE RECORDS SUMMARY | 2021-10-09 21:48 | XMS_ITS | Encounter Summary ---
:1940 Author Organization [facility] [place] [address] Care Team Providers Name Role Phone Nayla Caputo MD Primary Care Provider Encounter Details Date Type Department Care Team Description 06/25/2014 Orders Only Endocrinology [place] Plascencia, JOE [facility] [place] [address] DEPT OF ENDOCRINOLOGY [phone] [place], [place] [address] (Wo rk) Social History Tobacco [...] on filedocumented in this encounter Care Teams Desktop Architect Relationship Specialty Start Date End Date Nayla Caputo MD PCP - General 12/13/11 10/25/15 [address] [place] [address] documented as of this encounter
--- OUTSIDE RECORDS SUMMARY | 2021-10-09 21:48 | XMS_ITS | Encounter Summary ---
:1940 Author Organization [facility] [place] [address] Care Team Providers Name Role Phone Nayla Caputo MD Primary Care Provider Encounter Details Date Type Department Care Team Description 08/02/2014 Notes Only Infectious Disease a [facility] Sandra Perez, [place] [address] Social History Tobacco Use Types Packs/Day [...] documented as of this encounter Progress Notes Sandra Perez RN - 08/02/2014 1:34 PM EDT OPAT Program Call from Татьяна Davidson APRN in ortho this morning. Mrs Palma has begun to experience explosive diarrhea since changing to the CTX on 07/29/14. I know from her appointment last week that [facility]acon [facility], they felt very pleased with her progress and were even questioning stopping early. Her anticipated stop date was originally set for 08/04/14. At this point she only has 2 more days; therefore will have her stop the IV Ceftriaxone and ortho will d/c the PICC line. documented in this encounter Plan of Treatment Not on filedocumented as of this encounter Visit Diagnoses Not on filedocumented in this encounter Care Teams Intelligence Director Relationship Specialty Start Date End Date Nayla Caputo MD PCP - General 12/13/11 10/25/[address] [place] [address] documented as of this encounter
--- OUTSIDE RECORDS SUMMARY | 2021-10-09 21:48 | XMS_ITS | Encounter Summary ---
:1940 Author Organization [facility] [place] [address] Care Team Providers Name Role Phone Nayla Caputo MD Primary Care Provider Encounter Details Date Type Department Care Team Description 07/22/2014 External Results Infectious Disease at [facility] MD Naomi [facility] [place] [address] INFECTIOUS DISEASE [phone] [place], [place] [address] (Wo rk) Social History Tobacco [...] Diagnosis Comme nts EXTERNAL LAB INFECTIOUS Routine 07/19/2014 Resu lts for this DISEASE RESULTS PANEL proced ure are in the results section . documented in this encounter Results (ABNORMAL) Infectious Disease External Results (07/19/2014) Analysis Performed At Patho logist Time Signature WBC 7.18 (External Lab) Hemoglobin 9.3 12.0 - (EXTERNAL/ 16.0 ABN) Hematocrit 31.7 36.0 - (EXTERNAL/ 46.0 ABN) Platelets 271 (External Lab) Sed Rate 47 (EXTERNAL/ ABN) CRP High Sens 4.5 (EXTERNAL/ ABN) Calcium 8.4 8.7 - 10.7 (EXTERNAL/ ABN) BUN 13 (External Lab) Creatinine 0.8 (External Lab) Sodium 143 137 - 147 (External Lab) Potassium 3.9 3.4 - 5.3 (External Lab) Specimen (Source) Anatomical Location Collection Method / Collectio n Time Received Time / Laterality Volume 07/19/2014 Historical Provider POINT OF CARE TEST ORDERABLE S documented in this encounter Visit Diagnoses Not on filedocumented in this encounter Care Teams Bundles Hanger Relationship Specialty Start Date End Date Nayla Caputo MD PCP - General 12/13/11 10/25/15 [address] [place] [address] documented as of this encounter
--- OUTSIDE RECORDS SUMMARY | 2021-10-09 21:48 | XMS_ITS | Encounter Summary ---
:1940 [place] [address] Care Team Providers Name Role Phone Nayla Caputo MD Primary Care Provider Encounter Details Date Type Department Care Team Description 07/13/2014 External Results Infectious Disease at [facility] MD Naomi [facility] [place] [address] INFECTIOUS DISEASE [phone] [place], [place] [address] (Wo rk) Social History Tobacco [...] Diagnosis Comme nts EXTERNAL LAB INFECTIOUS Routine 07/12/2014 Resu lts for this DISEASE RESULTS PANEL proced ure are in the results section . documented in this encounter Results (ABNORMAL) Infectious Disease External Results (07/12/2014) Analysis Performed At Patho logist Time Signature WBC 7.22 (External Lab) Hemoglobin 8.8 12.0 - (EXTERNAL/ 16.0 ABN) Hematocrit 30.0 36.0 - (EXTERNAL/ 46.0 ABN) Platelets 387 (External Lab) Sed Rate 68 (EXTERNAL/ ABN) CRP High Sens 13.8 (EXTERNAL/ ABN) BUN 10 (External Lab) Creatinine 0.7 (External Lab) Sodium 143 137 - 147 (External Lab) Potassium 3.8 3.4 - 5.3 (External Lab) Specimen (Source) Anatomical Location Collection Method / Collectio n Time Received Time / Laterality Volume 07/12/2014 Narrative This result has an attachment that is no t available. Historical Provider POINT OF CARE TEST ORDERABLE S documented in this encounter Visit Diagnoses Not on filedocumented in this encounter Care Teams Blue Leather Sorter Relationship Specialty Start Date End Date Nayla Caputo MD PCP - General 12/13/11 10/25/15 [address] [place] [address] documented as of this encounter
--- OUTSIDE RECORDS SUMMARY | 2021-10-09 21:49 | XMS_ITS | Encounter Summary ---
:1940 Author Organization [facility] Address [facility] [place] [address] Care Team Providers Name Role Phone Nayla Caputo MD Primary Care Provider Reason for Visit Reason Comments Left Hip Pain pre-op exam for left charisse pro sthesis rem Encounter Details Date Type Department Care Team Description 06/14/2014 Office Visit Orthopaedics at [facility] Infection of [facility] Petar Garza MD [facility] [place] [address] prosthetic hip joint, [place] [address] Social History Tobacco Use Types Packs/Day [...] Sign Reading Time Taken Comments Blood Pressure 132/55 06/14/2014 2:00 PM EDT Pulse 93 06/14/2014 2:00 PM EDT Temperature - - Respiratory Rate - - Oxygen Saturation - - Inhaled Oxygen Concentration - - Weight 82.7 kg (182 lb 6 oz) 06/14/2014 2:00 PM EDT Height 157.5 cm (5' 2.01) 06/14/2014 2:00 PM EDT Body Mass Index 33.35 06/14/2014 2:00 PM EDT documented in this encounter Progress Notes Petar Garza MD - 06/14/2014 2:48 PM EDT Images from the original note were not included. Arthroplasty History: 1. L CHARISSE 05/14/12 Dr. Monte ([facility]) 2. I+D Left hip wound 05/01/13, Dr. Monte 3. I+D and vac placement 07/07/13, Dr. Monte 4. R CHARISSE September 21, 2009 Dr. Monte This note is recorded by Swetha Dempsey RN acting as a scribe for Petar Garza MD. PREOPERATIVE VISIT Interval History: Marcia Palma is a pleasant 74 y.o. year old female with severe osteoarthritis of the left hip being seen today to discuss a LEFT total hip arthroplasty explant and placement of antibiotic spacer . Her history and physical exam were reviewed in detail. Her history in regards to her hip was once again discussed and is outlined in my previous note. She states the hip pain and disability is worse since our previous visit. She does not endorse a history of DVT/PE or clotting Physical Exam: Exam is previously documented in my note and is essentially unchanged except that thesinus seems to have stopped draining. There is a large soft tissue defect and indentation of her hip. Significant Medical Comorbidities Patient Active Problem List Diagnosis Code ??? Lumbar degenerative disc disease 722.52 ??? Left hip pain 719.45 ??? 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 DM (diabetes mellitus), type 2 250.00 ??? Hypertension (HTN) 401.9 ??? HLD (hyperlipidemia) 272.4 ??? Restless leg syndrome 333.94 VITALS: BP Readings from Last 1 Encounters: 06/14/14 132/55 Pulse Readings from Last 1 Encounters: 06/14/14 93 Height: 157.5 cm (5' 2.01) Weight - Scale: 82.725 kg (182 lb 6 oz) Body mass index is 33.35 kg/(m^2). Relevant Lab Studies Lab Results Component Value Date WBC 10.1* 06/14/2014 HGB 10.7* 06/14/2014 HCT 35.0 06/14/2014 PLATELET 424* 06/14/2014 CREATININE 0.68* 06/14/2014 BUN 17 06/14/2014 NA 140 06/14/2014 K 4.3 06/14/2014 CRP 88.5 06/14/2014 SEDRATE 94* 06/14/2014 INR 1.0 06/14/2014 Recent Labs 06/14/14 1140 HA1C 6.6* Estimated Creatinine Clearance: 74.5 mL/min (based on Cr of 0.68). A Neg No results found for this basename: spgravityua, phuadip, proteinuadip, GLUCOSEU, ketonesua, urobiliuadip, blooduadip, nitrateua, leukoesterua, wbcua, bilirubinua EK05/27/14 scanned - SR within normal limits. Radiographic Analysis Together, we reviewed the preop radiographs obtained previously. Well fixed L CHARISSE, leonardo components. R CHARISSE with no apparent complication Assessment and Plan: This is a pleasant 74 y.o. year-old female who presents for a preoperative appointment today for LEFT hip explant and spacer. I had a long discussion with her regarding the risks and benefits of left total hip arthroplasty explantation. I indicated that in my opinion, this is the treatment option most likely to restore a more normal, pain-free level of function at some point. We discussed half-way suppression with antiobiotics and she is not interested in this option as she feels sick all the time and does not want to live with a staph infection in her hip. Ms. Palma expressed a desire to pursueexplant. We then discussed in great detail the risks associated with the proposed surgery. These included butwere not limited to: bleeding (which may or may not require transfusion), infection, persistent infection damage to nerves (specifically the LFCN) or blood vessels, deep venous thrombosis, pulmonary emb olus, prosthetic failure, loosening, prosthetic fracture, femur or pelvic fracture, dislocation, leg-length inequality, persistent pain, need for future surgery, medical complications (including cardiac, respiratory and neurologic complications), anaesthetic complications, and . The patient seemed to understand the nature of this procedure's risks. The patient is aware that it would take on average 3-5 days in the hospital, followed by approximately 12-18 months to full rehabilitation. We discussed the course of likely 6 weeks of antibioitcs then a drug holiday before reimplantation if infection irradication can be determined. I did review the history and physical [...] My review of the patient's risk factors leads me to believe that they are at low risk for a clot and low risk for a bleed. We will thus plan to use Coumadin for 6 weeks postoperatively for DVT prophylaxis, as she cannot tolerate Aspirin. We also reviewed their preferences regarding [...] Their desire is to be discharged to home versus assisted facility. Any remaining questions were solicited from the patient and answered. Ms. Palma wishes to proceed accordingly and informed consent was subsequently obtained for a LEFT total hip arthroplasty. We discussed using Celebrex after surgery for post-operative pain management during the inpatient stay only. Will need Nutrition and diabetes consult in house Wants implants after [place] lab I ensured that the patient has the needed samples of hibiclens wash to use both the night before andthe morning of the anticipated surgery. I have personally evaluated the patient and agree with the above note as recorded by Swetha Dempsey RN. Petar Garza MD, MS 06/14/2014 The below has been copied from a prior note: ASSESSMENT AND PLAN: A 73-year-old female with an infected left total hip prosthesis. I had a long discussion with her and her family about extensive treatment options. I did offer them chronic suppression with antibiotics and referral to Infectious Disease Clinic, but at this point she does not like the thought of having a Staphylococcus infection within her hip. I outlined that the draining area on her hip, which is scabbed over may open up again and continue to drain. I outlined the details of the two-stage explantation and spacer placement with the first stage to remove the prosthesis and placement of an antibiotic loaded cement spacer and a second stage to reimplant the total hip if all goes well. I outlined that it would take two to three months before the hip would be reimplanted after the initial explant and spacer placement. They [address] at [address] and I have had them speak with Radha King in clinic today to discuss logistics of postoperative discharge to rehab as well as pain for intravenous antibiotics half-way. At this point, she would like to proceed with explant of her hips. 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 I think this is reasonable as long as she remains on her antibiotic suppression with Keflex. In the event she develops any fevers, chills, or systemic symptoms though; I gave her our contact information and told her to contact us immediately to discuss a more expedited explant. She has the contact information for my surgical appliances salesperson Yenni Mckee and will call with her to pick a surgical date to have the hip removed. Implants are from [place]. Will need screw charter driver to remove screws from cup and extraction tool for [employer] stem PETAR GARZA MD, MS 06/14/2014 documented in this encounter Plan of Treatment Not on filedocumented as of this encounter Visit Diagnoses Diagnosis Infection of left prosthetic hip joint, subsequent encounter documented in this encounter Care Teams Magazine Writer Relationship Specialty Start Date End Date Nayla Caputo MD PCP - General 12/13/11 10/25/[address] [place] [address] documented as of this encounter
--- OUTSIDE RECORDS SUMMARY | 2021-10-09 21:49 | XMS_ITS | Encounter Summary ---
:1940 Author Organization [facility] [place] [address] Care Team Providers Name Role Phone Nayla Caputo MD Primary Care Provider Encounter Details Date Type Department Care Team Description 05/28/2014 External Results Orthopaedics at [facility] Provider, [facility] [place] [place] [address] Social History Tobacco Use Types Packs/Day [...] Name Priority Date/Time Associated Diagnosis Comme nts ECG SCAN Routine 05/27/2014 documented in this encounter Results Scan Doc: ECG (05/27/2014) Narrative This result has an attachment that is no t available. Scanning Provider MEDIA MGR SCAN EXT ORDR/RSLT documented in this encounter Visit Diagnoses Not on filedocumented in this encounter Care Teams Clothing Consultant Relationship Specialty Start Date End Date Nayla Caputo MD PCP - General 12/13/11 10/25/15 [address] [place] [address] documented as of this encounter
--- OUTSIDE RECORDS SUMMARY | 2021-10-09 21:49 | XMS_ITS | Encounter Summary ---
:1940 Author Organization [facility] Address [address] [place] [address] Care Team Providers Name Role Phone Nayla Caputo MD Primary Care Provider Encounter Details Date Type Department Care Team Description 06/14/2014 Hospital Encounter Laboratory Petar Garza Debility, unspecified; [facility] MD Umu Pain of left lower extremity; [facility] Prosthetic hip infection, gaitan bsequent encounter; [facility] [address] [phone] ORTHOPAEDIC [phone] [place] [address] Social History Tobacco Use Types Packs/Day Years [...] Take 2 tablets by 30 tablet 1 06/27/2014 07/06/2014 (TYLENOL) 500 mg mouth every 8 Tablet [...] for 6 weeks from surgery (August 04). lactobacillus (BACID) Take 1 tablet by 0 08/02/2014 Capsule mouth daily. acetaminophen Take 1,000 mg by 0 06/27 (TYLENOL) 500 mg mouth 2 times Tablet daily. hydroCODone-acetaminop Take 1 tablet by 0 06/27/2014 hen (NORCO) 10-325 mg mouth nightly. Tablet losartan (COZAAR) 50 Take 50 mg by 0 0 08/02/2014 mg Tablet mouth daily. Cephalexin 500 mg Take 1 tablet by 0 0 06/27/2014 Tablet mouth 3 times daily. gabapentin (NEURONTIN) Take 300 mg by 0 06/27/2014 300 mg Capsule mouth nightly. RED YEAST RICE ORAL Take 1,200 mg by 0 08/02/2014 mouth 2 times daily. documented as of this encounter Plan of Treatment Not on filedocumented as of this encounter Procedures Procedure Name Priority Date/Time Associated Comments Diagnosis URINALYSIS WITH REFLEX Routine 06/14/2014 4:00 PM Debility, Results for this CULTURE EDT unspecified procedure are in Pain of left lower the resul ts extremity section. Prosthetic hip infection, subsequent encounter URINE CULTURE Routine 06/14/2014 4:00 PM Debility, Results for this EDT unspecified procedure are in Pain of left lower the resul ts extremity section. Prosthetic hip infection, subsequent encounter HEMOGRAM Routine 06/14/2014 11:40 Debility, Results for this AM EDT unspecified procedure are in Pain of left lower the resul ts extremity section. Prosthetic hip infection, subsequent encounter DIFFERENTIAL, Routine 06/14/2014 11:40 Debility, Results fo r this AUTOMATED AM EDT unspecified procedure are in Pain of left lower the resul ts extremity section. Prosthetic hip infection, subsequent encounter TYPE AND SCREEN, SDP Routine 06/14/2014 11:40 Debility, (FUTURE SURGERY, [facility] AM EDT unspecifie d SAME DAY PROGRAM ONLY) Pain of left lower extremity Prosthetic hip infection, subsequent encounter ABO/RH TYPING Routine 06/14/2014 11:40 Debility, Results fo r this AM EDT unspecified procedure are in Pain of left lower the resul ts extremity section. Prosthetic hip infection, subsequent encounter SEDIMENTATION RATE Routine 06/14/2014 11:40 Debility, Resul ts for this AM EDT unspecified procedure are in Pain of left lower the resul ts extremity section. Prosthetic hip infection, subsequent encounter PROTHROMBIN TIME Routine 06/14/2014 11:40 Debility, Results for this AM EDT unspecified procedure are in Pain of left lower the resul ts extremity section. Prosthetic hip infection, subsequent encounter CBC (WITH DIFF) Routine 06/14/2014 11:40 Debility, AM EDT unspecified Pain of left lower extremity Prosthetic hip infection, subsequent encounter ANTIBODY SCREEN Routine 06/14/2014 11:40 Debility, Results for this AM EDT unspecified procedure are in Pain of left lower the resul ts extremity section. Prosthetic hip infection, subsequent encounter CRP, CARDIAC RISK (HS Routine 06/14/2014 11:40 Debility, Re sults for this CRP) AM EDT unspecified procedure are in Pain of left lower the resul ts extremity section. Prosthetic hip infection, subsequent encounter PROTEIN, TOTAL Routine 06/14/2014 11:40 Debility, Results f or this AM EDT unspecified procedure are in Pain of left lower the resul ts extremity section. Prosthetic hip infection, subsequent encounter HEMOGLOBIN A1C Routine 06/14/2014 11:40 Debility, Results f or this AM EDT unspecified procedure are in Pain of left lower the resul ts extremity section. Hyperglycemia Prosthetic hip infection, subsequent encounter ALBUMIN LEVEL Routine 06/14/2014 11:40 Debility, Results fo r this AM EDT unspecified procedure are in Pain of left lower the resul ts extremity section. Prosthetic hip infection, subsequent encounter BASIC METABOLIC PANEL Routine 06/14/2014 11:40 Debility, Re sults for this (NON-FASTING) AM EDT unspecified procedure are in Pain of left lower the resul ts extremity section. Prosthetic hip infection, subsequent encounter documented in this encounter Results Urine culture Clean Catch Urine (06/14/2014 4:00 PM EDT) [facility] Method Time Signature Urine Culture CERNER ? Patient Name: DINESH PEÑA ?Ordered By: PETAR GARZA MILLENNIUM ? MR#: [id number] ?LOC: ??4V ? /Sex: ??1940 (74 years), ? Female ? PROCEDURE: Urine Culture ?SOURCE: U CC ? COLLECTED: 06/14/2014 16:00 ? STARTED: 06/14/2014 16:53 ? FINAL REPORT ? Final Report ? Verified:06/15/2014 15:22 ? 1,000-9,000 cfu/ml mixed mucosal eduardo ? 1,000-9,000 cfu/ml Gram Negative organisms ? Note: Multiple bacterial morphotypes present. Suggest appropriate ? recollection with timely delivery to ? the laboratory, if clinically significant. ? Specimen (Source) Anatomical Collection Method Collection Time Re ceived Time Location / / Volume Laterality Urine specimen 06/14/2014 4:00 06/14/2014 4:53 obtained by clean PM EDT PM EDT catch procedure (specimen) Resulting Agency Comment Spec In Lab Petar Garza MD MICROBIOLOGY - GENERAL ORDER TERESA Performing Organization Address City/State/ZIP Code Phon e Number [place] [phone] CERNER MILLENNIUM Urinalysis with microscopic (06/14/2014 4:00 PM EDT) [facility] Method Time Signature Glucose UA Negative [...] Normal mg/dL CERNER MILL ENNIUM pH UA 5.0 5.0 - 8.0 CERNER MILLENNIUM Blood UA Negative Negative mg/dL CERNER MILLENNI UM Ketones UA Negative Negative mg/dL [facility] Nitrite UA Negative Negative [facility] HERBIEENNIUM Leukocytes UA Negative Negative mcL [facility] [place] NIUM Appearance UA Clear Clear [facility] DOUGIU M Spec [place] UA 1.027 1.002 - 1.030 [facility] LENNIUM Color UA Yellow Yellow [facility] HERBIEENNIUM RBC UA 2 0 - 4 /HPF [facility] WBC UA 4 0 - 5 /HPF [facility] Squam Epith UA <1 <=4 /HPF [facility] UM Specimen Anatomical Collection Method Collection Time Receive d Time (Source) Location / / Volume Laterality Urine specimen 06/14/2014 4:00 PM 015 4:08 (specimen) EDT PM EDT Resulting Agency Comment Spec In Lab Petar Garza MD URINE ORDERABLES Performing Organization Address City/[facility] [place] [address] [facility] Antibody screen (06/14/2014 11:40 AM EDT) Analysis Performed At Patho logist Time Signature Ab Screen Negative [facility] Expires at [id number] [facility] [id number] on: HERBIEENNIUM Specimen Anatomical Collection Method Collection Time Receive d Time (Source) Location / / Volume Laterality Blood specimen 06/14/2014 11:40 5 (specimen) AM EDT 11:47 AM EDT Resulting Agency Comment Spec In Lab Petar Garza MD BLOOD BANK ORDERABLES Performing Organization Address City/[facility]/ZIP [place] [address] [facility] ABO/Rh Typing (06/14/2014 11:40 AM EDT) P athologist Signature ABORh Type A Neg [facility] Specimen Anatomical Collection Method Collection Time Receive d Time (Source) Location / / Volume Laterality Blood specimen 06/14/2014 11:40 5 (specimen) AM EDT 11:47 AM EDT Resulting Agency Comment Spec In Lab Petar Garza MD BLOOD BANK ORDERABLES Performing Organization Address City/[facility] Code Phon e Number [address] CERNER MILLENNIUM (ABNORMAL) Differential, Automated (06/14/2014 11:40 AM EDT) [facility] Time Signature Neutrophils % 68.4 % CERNER MILLENNIUM Neutr Abs (ANC) 6.92 (H) 1.50 - CERNER 6.30 MILLENNIUM x10(3)/mc L Lymphocytes % 22.5 % CERNER MILLENNIUM Lymphocytes Abs 2.3 1.0 - 3.6 CERNER x10(3)/mc MILLENNIUM L Monocytes % 6.3 % CERNER MILLENNIUM Monocyte Abs 0.6 0.2 - 1.0 CERNER x10(3)/mc MILLENNIUM L Eosinophils % 2.3 % CERNER MILLENNIUM Eosinophils Abs 0.2 0.0 - 0.5 CERNER x10(3)/mc MILLENNIUM L Basophils % 0.4 % CERNER MILLENNIUM Basophils Abs 0.0 0.0 - 0.2 CERNER x10(3)/mc MILLENNIUM L Immature Gran % 0.10 % CERNER MILLENNIUM Comment: Immature granulocytes(IG's)percentage an d absolute count will include metamyelocytes, myelocytes, and promyelo cytes. Blood smears from CBCs yielding IG's will be scanned manually for concor dance. If this scan disagrees with the automated IG or if promyelocytes are not ed, a manual differential will be performed. Peggy Gran Abs 0.01 0.00 - 0.05 x10(3)/mcL CER NER MILLENNIUM Specimen Anatomical Collection Method Collection Time Receive d Time (Source) Location / / Volume Laterality Blood specimen 06/14/2014 11:40 5 (specimen) AM EDT 11:49 AM EDT Resulting Agency Comment Spec In Lab Petar Garza MD HEMATOLOGY ORDERABLES Performing Organization Address City/State/ZIP Code Phon e Number [address] CERNER MILLENNIUM (ABNORMAL) Hemogram (06/14/2014 11:40 AM EDT) P athologist Signature WBC 10.1 (H) 4.0 - 10.0 CERNER x10(3)/mcL MILLENNIUM RBC 4.24 3.93 - CERNER 5.22 MILLENNIUM x10(6)/mcL Hemoglobin 10.7 (L) 11.2 - CERNER 15.7 gm/dL MILLENNIUM Hematocrit 35.0 34.0 - CERNER 45.0 % MILLENNIUM MCV 82.5 79.0 - CERNER 94.0 fL MILLENNIUM MCH 25.2 (L) 26.6 - CERNER 32.2 pg MILLENNIUM MCHC 30.6 (L) 32.0 - CERNER 36.5 gm/dL MILLENNIUM Platelets 424 (H) 145 - 370 CERNER x10(3)/mcL MILLENNIUM RDWSD 58.0 (H) 35.0 - CERNER 46.0 fL MILLENNIUM RDWCV 19.1 (H) 10.9 - CERNER 14.4 % MILLENNIUM MPV 8.8 (L) 9.0 - 12.0 CERNER fL MILLENNIUM Specimen Anatomical Collection Method Collection Time Receive d Time (Source) Location / / Volume Laterality Blood specimen 06/14/2014 11:40 5 (specimen) AM EDT 11:49 AM EDT Resulting Agency Comment Spec In Lab Petar Garza MD HEMATOLOGY ORDERABLES Performing Organization Address City/State/ZIP Code Phon e Number [place] [phone] CERNER MILLENNIUM (ABNORMAL) Hemoglobin A1c (06/14/2014 11:40 AM EDT) Analysis Performed At Patho logist Time Signature Hemoglobin A1C 6.6 (H) 4.3 - 5.6 CERNER % MILLENNIUM [...] Mellitus, Diabetes Care 2013; 36: Suppl. 1, S67-22 Est Avg Gluc See note mg/dL CERNER MILLENNIUM Comment: Estimated Average Glucose not appropriat e [...] with hemoglobinopathies. Additional resources are available on [facility] website: [email or web address]adacalc Harman HINDS, Harris J, Angela R, et al. ??Tr anslating the A1C assay into estimated average glucose values. ??Diabetes Care 2008:31(8):0162-8961. Specimen Anatomical Collection Method Collection Time Receive d Time (Source) Location / / Volume Laterality Blood specimen 06/14/2014 11:40 5 (specimen) AM EDT 11:49 AM EDT Resulting Agency Comment Spec In Lab Petar Garza MD CHEMISTRY ORDERABLES Performing Organization Address City/State/ZIP [place] [address] [facility] Protein, total (06/14/2014 11:40 AM EDT) P athologist Signature Total Protein 7.9 6.1 - 8.0 CERNER gm/dL MILLENNIUM Specimen Anatomical Collection Method Collection Time Receive d Time (Source) Location / / Volume Laterality Blood specimen 06/14/2014 11:40 5 (specimen) AM EDT 11:49 AM EDT Resulting Agency Comment Spec In Lab Petar Garza MD CHEMISTRY ORDERABLES Performing Organization Address City/[facility]/ZIP Code Phon e Number [address] CERNER MILLENNIUM Albumin Level (06/14/2014 11:40 AM EDT) P athologist Signature Albumin 3.9 3.2 - 5.2 CERNER gm/dL MILLENNIUM Specimen Anatomical Collection Method Collection Time Receive d Time (Source) Location / / Volume Laterality Blood specimen 06/14/2014 11:40 5 (specimen) AM EDT 11:49 AM EDT Resulting Agency Comment Spec In Lab Petar Garza MD CHEMISTRY ORDERABLES Performing Organization Address [facility] Phon e Number [address] CERNER MILLENNIUM High Sensitivity CRP (06/14/2014 11:40 AM EDT) P athologist Signature CRP High Sens 88.5 mg/L CERNER MILLENNIUM Comment: Interpretations: 1) For [...] Location / / Volume Laterality Blood specimen 06/14/2014 11:40 5 (specimen) AM EDT 11:49 AM EDT Resulting Agency Comment Spec In Lab Petar Garza MD CHEMISTRY ORDERABLES Performing Organization Address City/[facility]/ZIP [place] [address] CERNER MILLENNIUM (ABNORMAL) Sedimentation rate (06/14/2014 11:40 AM EDT) P athologist Signature Sed Rate 94 (H) 0 - 20 CERNER mm/hr MILLENNIUM Specimen Anatomical Collection Method Collection Time Receive d Time (Source) Location / / Volume Laterality Blood specimen 06/14/2014 11:40 5 (specimen) AM EDT 11:49 AM EDT Resulting Agency Comment Spec In Lab Petar Garza MD HEMATOLOGY ORDERABLES Performing Organization Address [facility] [place] [address] CERNER MILLENNIUM Prothrombin Time (06/14/2014 11:40 AM EDT) P athologist Signature PT 14.0 12.5 - 15.5 CERNER sec MILLENNIUM Comment: [...] Location / / Volume Laterality Blood specimen 06/14/2014 11:40 5 (specimen) AM EDT 11:49 AM EDT Resulting Agency Comment Spec In Lab Petar Garza MD HEMATOLOGY ORDERABLES Performing Organization Address City/[facility]/ZIP [facility] [place] [address] CERNER MILLENNIUM (ABNORMAL) Basic Metabolic Panel (non-fasting) (06/14/2014 11:40 AM EDT) athologist Signature Glucose Lvl 102 60 - 199 CERNER mg/dL MILLENNIUM Comment: Diabetes: >=200 mg/dL plus symp toms BUN 17 8 - 18 mg/dL CERNER MILLENNIUM Creatinine 0.68 (L) 0.70 - 1.20 mg/dL CERNER MILL ENNIUM Comment: Please note that the pediatric reference intervals supplied above were not validated at [facility]. Results from pediatri c patients should be [...] - 15 mmol/L CERNER MILLENNIU M Calcium 9.7 8.5 - 10.5 mg/dL CERNER HONG NIUM [...] the following links into your internet browser. [email or web address] Specimen Anatomical Collection Method Collection Time Receive d Time (Source) Location / / Volume Laterality Blood specimen 06/14/2014 11:40 5 (specimen) AM EDT 11:49 AM EDT Resulting Agency Comment Spec In Lab Petar Garza MD CHEMISTRY ORDERABLES Performing Organization Address City/State/[place] [address] [facility] documented in this encounter Visit Diagnoses Diagnosis Debility, unspecified Pain of left lower extremity Prosthetic hip infection, subsequent enc ounter Hyperglycemia Other abnormal glucose documented in this encounter Care Teams Director Of Distribution Relationship Specialty Start Date End Date Nayla Caputo MD PCP - General 12/13/11 10/25/15 [address] [place] [address] documented as of this encounter
--- OUTSIDE RECORDS SUMMARY | 2021-10-09 21:49 | XMS_ITS | Encounter Summary ---
:1940 Author Organization [facility] [place] [address] Care Team Providers Name Role Phone Nayla Caputo MD Primary Care Provider Reason for Visit Reason Onset Date Comments Pre Procedure Call 04/14/2014 Encounter Details Date Type Department Care Team Description 04/14/2014 Telephone Orthopaedics at [facility] Petar Arriola, Pre Procedure Call [facility] [place]ía [place] [address] [facility] [phone] DR ORTHOPAEDIC SURG [place], [place] [address] (Wo rk) Social History Tobacco [...] this encounter Miscellaneous Notes Telephone Encounter - Casie Jesus - 04/14/2014 8:42 AM EST I called and left a message for patient to call me back directly to schedule her surgery with Dr Arriola. documented in this encounter Plan of Treatment Not on filedocumented as of this encounter Visit Diagnoses Not on filedocumented in this encounter Care Teams Diesel Engine Ii Pipe Fitter Relationship Specialty Start Date End Date Nayla Caputo MD PCP - General 12/13/11 10/25/15 [address] [place] [address] documented as of this encounter
--- OUTSIDE RECORDS SUMMARY | 2021-10-09 21:49 | XMS_ITS | Encounter Summary ---
:1940 [place] [address] Care Team Providers Name Role Phone Nayla Caputo MD Primary Care Provider Encounter Details Date Type Department Care Team Description 07/14/2013 Orders Only Orthopaedics at [facility] Samm Wisdom MD [facility] [place] [address] ORTHOPAEDIC SURGERY [phone] [place], [place] [address] (Wo rk) Social History Tobacco Use Types Packs/Day Years Used Date Never Smoker Sex Assigned at Date Recorded Not on file documented as of this encounter Plan of Treatment Not on filedocumented as of this encounter Procedures Procedure Name Priority Date/Time Associated Diagnosis Comme nts FILM LIBRARY Routine 07/14/2013 9:05 AM Results f or this STORAGE ONLY DX HIP EDT procedur e are in the results section. documented in this encounter Results Film Library- Storage only DX Hip (07/14/2013 9:05 AM EDT) Anatomical Region Laterality Modality Other Specimen (Source) Anatomical Collection Method Collection Time Re ceived Time Location / / Volume Laterality 07/14/2013 9:05 AM EDT Narrative 12/02/2013 9:22 AM EDT This is a Non-reportable exam Procedure Note 12/02/2013 This is a Non-reportable exam Samm Wisdom MD IMG FILM LIBRARY ORDERABLES documented in this encounter Visit Diagnoses Not on filedocumented in this encounter Care Teams Gas Pump Attendant Relationship Specialty Start Date End Date Nayla Caputo MD PCP - General 12/13/11 10/25/15 [address] [place] [address] documented as of this encounter
--- OUTSIDE RECORDS SUMMARY | 2021-10-09 21:49 | XMS_ITS | Encounter Summary ---
:1940 Author Organization [facility] [place] [address] Care Team Providers Name Role Phone Nayla Caputo MD Primary Care Provider Encounter Details Date Type Department Care Team Description 12/12/2011 Abstract Spine Center at [facility] Salina Smith, [place] [address] Social History Tobacco Use Types Packs/Day Years Used Date Never Assessed Sex Assigned at Date Recorded Not on file documented as of this encounter Plan of Treatment Not on filedocumented as of this encounter Visit Diagnoses Not on filedocumented in this encounter Care Teams Pedigree Tracer Relationship Specialty Start Date End Date Nayla Caputo MD PCP - General 12/13/11 10/25/15 [address] [place] [address] documented as of this encounter
--- OUTSIDE RECORDS SUMMARY | 2021-10-09 21:49 | XMS_ITS | Encounter Summary ---
:1940 Author Organization [facility] [place] [address] Care Team Providers Name Role Phone Nayla Caputo MD Primary Care Provider Reason for Visit Reason Onset Date Comments Triage 12/02/2013 Encounter Details Date Type Department Care Team Description 12/02/2013 Telephone Orthopaedics at [facility] Dahlia Mejia, [place] [address] Social History Tobacco Use Types Packs/Day Years Used Date Never Smoker Sex Assigned at Date Recorded Not on file documented as of this encounter Miscellaneous Notes Telephone Encounter - Alesha Byrd - 12/04/2013 3:29 PM EDT SCHEDULED 01/26/14, PATIENT ON WAITING LIST. Telephone Encounter - Dahlia Vega RN - 12/04/2013 11:14 AM EDT Discussed with pt; Ms. Palma indicates that Dr. Monte specifically requests Dr. Wisdom. Ms. Palma is also on antibiotics, per Dr. Caputo's office, she is on Doxycycline 100mg BID, will be one on 12/09. She is also on daily keflex for suppression, since June. Telephone Encounter - Dahlia Vega RN - 12/03/2013 10:34 AM EDT Office notes forwarded with referral denote culture-negative MILTON X4+ months. Sending request to [facility] for disposition. Telephone Encounter - Pura Lugo - 12/02/2013 12:[address] Monte's office called with this urgent referral. Please review referral for an problem after left total hip arthroplasty question infection however culture came back negative urgent referral requested all notes scanned to edh. [phone] [address] available. [address] [place] [id number] documented in this encounter Plan of Treatment Not on filedocumented as of this encounter Visit Diagnoses Not on filedocumented in this encounter Care Teams Soliciting Freight Agent Relationship Specialty Start Date End Date Nayla Caputo MD PCP - General 12/13/11 10/25/15 [address] [place] [address] documented as of this encounter
--- OUTSIDE RECORDS SUMMARY | 2021-10-09 21:49 | XMS_ITS | Encounter Summary ---
:1940 Author Organization [facility] Address [facility] [place] [address] Care Team Providers Name Role Phone Nayla Caputo MD Primary Care Provider Encounter Details Date Type Department Care Team Description 12/26/2011 Orders Only Anesthesiology Marko Miller MD [facility] [place] [address] [address] [phone] [place], [place] [address] (Wo rk) Social History Tobacco Use Types Packs/Day Years Used Date Never Smoker Sex Assigned at Date Recorded Not on file documented as of this encounter Plan of Treatment Not on filedocumented as of this encounter Procedures Procedure Name Priority Date/Time Associated Diagnosis Comme nts FILM LIBRARY Routine 12/26/2011 8:05 AM Results f or this STORAGE ONLY PAIN EDT procedure are in [facility] the results section. documented in this encounter Results FILM LIBRARY-STORAGE ONLY PAIN [facility]INIC [facility]-ARM (12/26/2011 8:05 AM EDT) Specimen (Source) Anatomical Collection Method Collection Time Re ceived Time Location / / Volume Laterality 12/26/2011 8:05 AM EDT Narrative RAD - 10/13/2013 10:37 AM EDT This is a non-reportable exam. Procedure Note Garrett Taveras - 10/13/2013Formatti ng of this note might be different from the original. This is a non-reportable exam. Marko Miller MD IMG FILM LIBRARY ORDERABLES Performing Organization Address City/State/ZIP Code Phon e Number [facility] [address] [facility] [place] [address] documented in this encounter Visit Diagnoses Not on filedocumented in this encounter Care Teams Newspaper Correspondent Relationship Specialty Start Date End Date Nayla Caputo MD PCP - General 12/13/11 10/25/15 [address] [place] [address] documented as of this encounter
--- OUTSIDE RECORDS SUMMARY | 2021-10-09 21:49 | XMS_ITS | Encounter Summary ---
:1940 [place] [address] Care Team Providers Name Role Phone Nayla Caputo MD Primary Care Provider Encounter Details Date Type Department Care Team Description 12/26/2012 Orders Only Orthopaedics at [facility] Samm Wisdom MD [facility] [place] [address] ORTHOPAEDIC SURGERY [phone] [place], [place] [address] (Wo rk) Social History Tobacco Use Types Packs/Day Years Used Date Never Smoker Sex Assigned at Date Recorded Not on file documented as of this encounter Plan of Treatment Not on filedocumented as of this encounter Procedures Procedure Name Priority Date/Time Associated Diagnosis Comme nts FILM LIBRARY Routine 12/26/2012 9:05 AM Results f or this STORAGE ONLY CT EDT procedure ar e in ABDOMEN AND PELVIS the resul ts section. documented in this encounter Results Film Library- Storage only CT abdomen & pelvis (12/26/2012 9:05 AM EDT) Anatomical Region Laterality Modality Abdomen, Pelvis Other Specimen (Source) Anatomical Collection Method Collection Time Re ceived Time Location / / Volume Laterality 12/26/2012 9:05 AM EDT Narrative 12/02/2013 9:21 AM EDT This is a Non-reportable exam Procedure Note 12/02/2013 This is a Non-reportable exam Samm Wisdom MD IMG FILM LIBRARY ORDERABLES documented in this encounter Visit Diagnoses Not on filedocumented in this encounter Care Teams Hse Manager Relationship Specialty Start Date End Date Nayla Caputo MD PCP - General 12/13/11 10/25/15 [address] [place] [address] documented as of this encounter
--- OUTSIDE RECORDS SUMMARY | 2021-10-09 21:49 | XMS_ITS | Encounter Summary ---
:1940 Author Organization [facility] Address [facility] [place] [address] Care Team Providers Name Role Phone Nayla Caputo MD Primary Care Provider Encounter Details Date Type Department Care Team Description 02/26/2014 Hospital Encounter XRay at [facility], DR SHERMAN S/P hip replacement [address] [place] [address] Samm Ragsdale MD [facility] [place] [address] [place] [address] Social History Tobacco Use Types Packs/Day Years [...] Sig Dispensed Refills Start Date End Date cyanocobalamin (VITAMIN Take 1,000 mcg by 0 B-12) 1,000 mcg Tablet mouth daily. CALCIUM CARBONATE/VITAMIN Take 600 mg by 0 D3 (CALCIUM+D ORAL) mouth daily. metFORMIN (GLUCOPHAGE) 500 Take 500 mg by 0 mg tablet mouth 2 times daily (with meals). Cephalexin 500 mg Tablet Take 1 tablet by 0 06/27/2014 mouth 3 times daily. gabapentin (NEURONTIN) 300 Take 300 mg by 0 06/27/2014 mg Capsule mouth nightly. RED YEAST RICE ORAL Take 1,200 mg by 0 08/02/2014 mouth 2 times daily. enalapril (VASOTEC) 10 mg Take 10 mg by 0 03/09/2014 tablet mouth daily. ibuprofen (MOTRIN) 800 mg 800MG, PO, 2-3 X/ 0 06/14/2014 tablet day prn documented as of this encounter Procedure Notes Soy Wheeler MD - 02/26/2014 5:14 PM ESTProcedure(s): ARTHROCENTESIS,DRAIN/INJECT JOINT/BURSA Pre-Procedure Diagnose(s): Chronic left hip pain Marcia Peña [id number] DATE: 02/26/2014 5:14 PM HISTORY: Pain, r/o infection of left Hip Left hip ASPIRATION UNDER FLUOROSCOPY TECHNIQUE: After an extensive conversation with the patient regarding risks and benefits, oral and written consent were obtained. The patient was placed supine on the fluoroscopic table. The left hip was prepped and draped in the usual aseptic manner. 1% Lidocaine was used to achieve local anesthesia.Under fluoroscopic guidance, 20 gauge spinal needle was advanced into the joint space. Small amount of air was injected to document needle placement. No fluid returned. A second 22 gauge spinal needle was also advanced into the joint and still I was unable to aspirate fluid. The joint was then irrigated with approximately 5cc of saline and the irrigant was sent to Microbiology. All needles removed atend of procedure. FINDINGS: 1. Small amount of injected air in the left hip joint space. 2. 0 ml of synovial fluid aspirated. Irrigant sent for culture, sensitivity, gram stain. No fluid available for cell count and differential. MEDICATIONS: Lidocaine 1% - <5 ml, for subcutaneous anesthesia Fluoroscopy time: 104 sec COMPLICATIONS: None immediate. POST-PROCEDURE CARE: Instructions on monitor of infection, management of post procedure pain were reviewed with patient. IMPRESSION: Uneventful left hip aspiration. Attending: SOY WHEELER MD documented in this encounter Plan of Treatment Not on filedocumented as of this encounter Procedures Procedure Name Priority Date/Time Associated Diagnosis Comme nts XR JOINT ASPIRATION Routine 02/26/2014 2:18 PM Re sults for this - LARGE JOINT EST procedure are in the results section. PROSTHETIC JOINT STAT 02/26/2014 1:38 PM S/P hip replacemen t CULTURE, EXTENDED EST HOLD, AEROBIC & ANAEROBIC JOINT CULTURE STAT 02/26/2014 1:38 PM S/P hip replacement R esults for this EST procedure are i n the results section. ANAEROBIC CULTURE STAT 02/26/2014 1:38 PM S/P hip replaceme nt Results for this EST procedure are i n the results section. documented in this encounter Results XR Joint Aspiration - Large Joint (02/26/2014 2:18 PM EST) Anatomical Region Laterality Modality N/A Radiographic Imaging Specimen (Source) Anatomical Collection Method Collection Time Re ceived Time Location / / Volume Laterality 02/26/2014 2:18 PM EST Impressions 03/01/2014 1:12 PM EST IMPRESSION: Uneventful left hip aspiration. ? Attending: SOY WHEELER MD ? Narrative 03/01/2014 1:12 PM EST ? Pre-procedure Diagnoses ? 1. Chronic left hip pain [719.45, 338.29 ] ? Procedures ? 1. ARTHROCENTESIS,DRAIN/INJECT JOINT/BUR SA [[id number]] ? Marcia Peña ?[id number] ? DATE: ??02/26/2014 ?? 5:14 PM ? HISTORY: ??Pain, r/o infection of ??left Hip ? Left hip ASPIRATION UNDER FLUOROSCOPY ? TECHNIQUE: ??After an extensive conversa tion with the patient regarding risks and benefits, oral and written consent w ere obtained. ??The patient was placed supine on the fluoroscopic table. ??The left hip was prepped and draped in the usual aseptic manner. 1% Lidocaine was u sed to achieve local anesthesia. Under fluoroscopic guidance, 20 gauge spinal n eedle was advanced into the joint space. ??Small amount of air was injecte d to document needle placement. ??No ?? fluid returned. A second 22 gauge spinal needle was also advanced into the joint and still I was unable to aspirate fluid. The joint was then irrigated with approximately 5cc of saline and the irrigant was sent to Microbiology. All needles removed at end of procedure. ? FINDINGS: ?? 1. ??Small amount of injected air in the left hip joint space. ?? 2. ??0 ml of synovial fluid aspirated. I rrigant ??sent for culture, sensitivity, gram stain. No fluid available for cell count and differential. ? MEDICATIONS: ?? Lidocaine 1% - <5 ml, for subcutaneous a nesthesia ? Fluoroscopy time: 104 sec ? COMPLICATIONS: ??None immediate. ? POST-PROCEDURE CARE: Instructions on mon itor of infection, management of post procedure pain were reviewed with jonnathan mahan. ? Procedure Note Soy Wheeler MD - 03/01/2014Forma tting of this note might be different from the original. Pre-procedure Diagnoses 1. Chronic left hip pain [719.45, 338.29 ] Procedures 1. ARTHROCENTESIS,DRAIN/INJECT JOINT/BUR SA [[id number]] Marcia Peña [id number] DATE: 02/26/2014 5:14 PM HISTORY: Pain, r/o infection of left Hip Left hip ASPIRATION UNDER FLUOROSCOPY TECHNIQUE: After an extensive conversati on with the patient regarding risks and benefits, oral and written consent w ere obtained. The patient was placed supine on the fluoroscopic table. The le ft hip was prepped and draped in the usual aseptic manner. 1% Lidocaine was u sed to achieve local anesthesia. Under fluoroscopic guidance, 20 gauge spinal n eedle was advanced into the joint space. Small amount of air was injected to document needle placement. No fluid returned. A second 22 gauge spinal needle was also advanced into the joint and still I was unable to aspirate fluid. The joint was then irrigated with approximately 5cc of saline and the irrigant was sent to Microbiology. All needles removed at end of procedure. FINDINGS: 1. Small amount of injected air in the l eft hip joint space. 2. 0 ml of synovial fluid aspirated. Irr igant sent for culture, sensitivity, gram stain. No fluid available for cell count and differential. MEDICATIONS: Lidocaine 1% - <5 ml, for subcutaneous a nesthesia Fluoroscopy time: 104 sec COMPLICATIONS: None immediate. POST-PROCEDURE CARE: Instructions on mon itor of infection, management of post procedure pain were reviewed with jonnathan pepper IMPRESSION IMPRESSION: Uneventful left hip aspirati on. Attending: SOY WHEELER MD Samm Paige MD IMG DX ORDERABLES Anaerobic Culture (02/26/2014 1:38 PM EST) [facility] Method Time Signature Anaerobic CERNER Culture ? Patient Name: MARCIA PEÑA ?Ordered By: SAMM PAIGE [facility] ? MR#: [id number] ?LOC: ??3C ? /Sex: ??1940 (73 years), ? Female ? PROCEDURE: Anaerobic Culture ?SOURCE: Joint Fl ? COLLECTED: 02/26/2014 13:38 ? BODY SITE: Left Hip ? STARTED: 02/26/2014 14:40 ? FINAL REPORT ? Final Report ? Verified:03/02/2014 15:01 ? No anaerobic organisms isolated ? PRELIMINARY REPORT ? Preliminary Report ? Verified:02/27/2014 13:14 ? No anaerobic organisms isolated to date ? Specimen Anatomical Collection Method Collection Time Receive d Time (Source) Location / / Volume Laterality Joint fluid LEFT HIP REGION 02/26/2014 1:38 PM 2013 2:40 specimen STRUCTURE / EST PM EST (specimen) Unknown Resulting Agency Comment Spec In Lab Samm Paige MD MICROBIOLOGY - GENERAL ORDER [facility] Performing Organization Address City/State/[place] [address] [facility] Joint Culture (02/26/2014 1:38 PM EST) Component Value Ref Test Analysis Performed At [facility] Range Method Time Signature Joint Culture [facility] ? Patient Name: MARCIA PEÑA ? Ordered By: SAMM PAIGE ? MR#: [id number] ?LOC: ??3C ? /Sex: ??1940 (73 years), ? Female ? PROCEDURE: Joint Culture ?SOURCE: Joint Fl ? COLLECTED: 02/26/2014 13:38 ? BODY SITE: Left Hip ? STARTED: 02/26/2014 14:40 ? STAINS / PREPARATIONS ? Gram Stain Report ? Verified:02/26/2014 15:00 ? Cytocentrifuge Gram Stain performed ? White Blood Cells seen ? No microorganisms seen. ? FINAL REPORT ? Final Report ? Verified:03/02/2014 12:14 ? Rare Staphylococcus aureus ? Results called to and read back by Zbigniew Hewitt MD ?? 10:20:53 ? PRELIMINARY REPORT ? Preliminary Report ? Verified:02/28/2014 08:54 ? Rare Staphylococcus aureus ? Results called to and read back by Zbigniew Hewitt MD ?? 10:20:53 ? Patient: MARCIA PEÑA ? MR#: [id number] ? SUSCEPTIBILITY RESULTS ? Staphylococcus aureus ? [...] ??NA=Not Applicable ? DDS=Dose dependent-susceptible ??NS=Non-susceptible ? FOOTNOTES ? (1) ? Gentamicin is not appropriate for Pender-therapy. ? (2) ? Penicillin resistant, Nafcillin susceptible [...] Volume Laterality Joint fluid LEFT HIP REGION 02/26/2014 1:38 PM 2013 2:40 specimen STRUCTURE / EST PM EST (specimen) Unknown Resulting Agency Comment Spec In Lab Samm Paige MD MICROBIOLOGY - GENERAL ORDER [place] Performing Organization Address City/State/[place] [address] [facility] documented in this encounter Visit Diagnoses Diagnosis S/P hip replacement Hip joint replacement by other means documented in this encounter Care Teams Forklift Wheel Loader Relationship Specialty Start Date End Date Nayla Caputo MD PCP - General 12/13/11 10/25/15 [address] [place] [address] documented as of this encounter
--- OUTSIDE RECORDS SUMMARY | 2021-10-09 21:49 | XMS_ITS | Encounter Summary ---
:1940 Author Organization [facility] [place] [address] Care Team Providers Name Role Phone Nayla Caputo MD Primary Care Provider Reason for Visit Reason Comments Left Leg Pain buttocks and thigh Encounter Details Date Type Department Care Team Description 01/17/2012 Follow-Up [facility], Left hi p pain (Primary [place] MANAGER OF LEARNING Dx) [place] [address] PAIN MEDICINE [phone] [place] [phone] (Wo rk) Social History Tobacco Use Types Packs/Day Years Used Date Never Smoker Sex Assigned at Date Recorded Not on file documented as of this encounter Last Filed Vital Signs Vital Sign Reading Time Taken Comments Blood Pressure - - Pulse - - Temperature - - Respiratory Rate - - Oxygen Saturation - - Inhaled Oxygen Concentration - - Weight 86.2 kg (190 lb) 01/17/2012 11:16 AM EDT Height 157.5 cm (5' 2) 01/17/2012 11:16 AM EDT Body Mass Index 34.75 01/17/2012 11:16 AM EDT documented in this encounter Progress Notes [facility], MANAGER OF LEARNING - 01/17/2012 11:47 AM EDT Chief complaint:Left hip pain Sublective: Marcia Palma is here to follow up after LESI injection 12/26/2011 for Left hip pain symptoms. Her response has been Nonexistent. Her imaging was not entirely convincing for foraminall compromise Causing her symptoms, and she had NO response. .Medications and allergies were reviewed.Deniesnumbness, tingling, weakness Her leg is painful and she is using a cane to ambulate. Objective: Exam is notable for decreased range of motion when prone in left hip. When I flex the knee, her hip comes off the table. She does have reduced ROM in the knee as well.. Imaging Reveals moderate degenerative changes in the left hip. Assessment: HIP OA Plan: She would like to go back to seee Dr Vo. If interested in a second opinion in orthoepdics here, she will let me know and I will refer her to Dr Shelley 20 minutes of this 25 minute visit was spent discussing present symptoms and future plan of care. documented in this encounter Plan of Treatment Not on filedocumented as of this encounter Visit Diagnoses Diagnosis Left hip pain - Primary Pain in joint, pelvic region and thigh documented in this encounter Care Teams Bleaching Supervisor Relationship Specialty Start Date End Date Nayla Caputo MD PCP - General 12/13/11 10/25/15 [address] [place] [address] documented as of this encounter
--- OUTSIDE RECORDS SUMMARY | 2021-10-09 21:49 | XMS_ITS | Encounter Summary ---
:1940 Author Organization [facility] Address [facility] [place] [address] Care Team Providers Name Role Phone Nayla Caputo MD Primary Care Provider Reason for Visit Reason Comments Left Hip Pain s/p left charisse infection [facility] d os 2013 Encounter Details Date Type Department Care Team Description 03/09/2014 Office Visit Orthopaedics at [facility] DR SHERMAN Infection of [facility] [place] [address] joint, subsequent [phone] encounter Social History Tobacco Use Types Packs/Day [...] Sign Reading Time Taken Comments Blood Pressure 130/67 03/09/2014 7:47 AM EST Pulse 91 03/09/2014 7:47 AM EST Temperature 36.8 ??C (98.3 ??F) 03/09/2014 7:47 AM EST Respiratory Rate - - Oxygen Saturation - - Inhaled Oxygen Concentration - - Weight 86.4 kg (190 lb 6.4 oz) 03/09/2014 7:47 AM EST Height 160 cm (5' 3) 03/09/2014 7:47 AM EST Body Mass Index 33.73 03/09/2014 7:47 AM EST documented in this encounter Progress Notes Samm Wisdom MD - 04/02/2014 2:27 PM EST Orthopaedic Surgery Attending Addendum: Patient seen and examined personally. I reviewed the H&P documented by Bean Calzada PA-C andconfirmed the findings with my own assessment. 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 Clinical history suggestive of chronic infection starting 1 year out from surgery ith subsequent multiple procedures to deal with what was believed to be a superficial, extra-articular process. Our recent aspiration (sensitive staph aureus) confirmed this indeedwas an intra-articular process, leaving a two-stage revision with intervening spacer the likely bestoption. Understandably, she would like to proceed sooner rather than later. We discussed the possibility that one of my partners may have access to an earlier OR date than I may be able to procure at this point. She was fine with this approach if it got her treated sooner. In the interim, I agree withkeeping her on PO kelfex (her organism is sensitivie to this) in order to hopefully protect her frombecoming bacteremic and seeding the contralateral CHARISSE. Plan reviewed with the patient who agreed to proceed accordingly. Samm Wisdom MD Division of Joint Reconstruction Surgery Department [place] [address] Bean Calzada PA - 03/09/2014 10:30 AM EST Subjective: Marcia Palma is 73 y.o. and is now 1 year and 10 months . post left total hip arthroplasty. The patient is not having any pain. The patient denies fever, increasing redness, pus, increasing pain, increasing swelling. Post op problems reported: wound drainage She is ambulating with a cane. Patient has had a draining wound from her incision for several months. She has had 2 subsequent surgeries to remove the wound and an I&D of the hip cultures were taken at these surgeries and nothing grew. Weobtained an aspiration that grew staph aureus that is susceptible to Keflex which patient has been on for suppression therapy. Patient and family are here to discuss treatment options. ROS: Denies fevers, chills, night sweats, nausea,or vomiting. Objective: BP 130/67 Pulse 91 Temp(Src) 36.8 ??C (98.3 ??F) Ht 160 cm (5' 3) Wt 86.365 kg (190 lb 6.4oz) BMI 33.74 kg/m2 General : alert, appears stated age and cooperative Gait: ambulates with a cane. Tenderness: none DVT Evaluation: No evidence of DVT seen on physical exam. I have made the following determinations: Post Op left Hip Exam: Gaviria Hip Score: Less than 30 degrees of fixed flexion: Yes Less than 10 degrees of fixed adduction: Yes Less than 10 degrees of fixed int rotation in extension: Yes Limb Length discrepancy: 0cm Motion: Total degrees of Flexion: 90 Total degrees of Abduction: 25 Total degrees of Ext Rotation: 25 Total degrees of Adduction: 5 Gait Abnormality: Normal Pulses Palpable: left PT: Yes left DP: Yes Motor/Sensory: left Distal Motor: Normal Distal Sensory: Normal Hip Abductors: 5 Patient has a chronic draining wound please see picture taken today in scan docs Imaging X-rays are being obtained today prior outside films demonstrate a well seated arthroplasty Assessment: Status post left total hip arthroplasty. Postoperative course complicated by infection and chronically draining wound Plan: continue with activities as tolerated Discussed two stage revision with spacer and reimplantation Patient was seen and evaluated with Dr Wisdom Continue on Keflex as prescribed We discussed the appropriate precautions surrounding dental prophylaxis. We also discussed maintaining good foot care and giving prompt attention to any source of infection throughout the body including foot ulcers and urinary tract infections. ASUNCION DOTY documented in this encounter Plan of Treatment Not on filedocumented as of this encounter Visit Diagnoses Diagnosis Infection of prosthetic total hip joint, subsequent encounter documented in this encounter Care Teams Facility Manager Histology Relationship Specialty Start Date End Date Nayla Caputo MD PCP - General 12/13/11 10/25/15 [address] [place] [address] documented as of this encounter
--- OUTSIDE RECORDS SUMMARY | 2021-10-09 21:49 | XMS_ITS | Encounter Summary ---
:1940 Author Organization [facility] [address] Care Team Providers Name Role Phone Nayla Caputo MD Primary Care Provider Encounter Details Date Type Department Care Team Description 12/18/2011 External Results [facility] Melina Davila, [place] [address] Social History Tobacco Use Types Packs/Day Years Used Date Never Smoker Sex Assigned at Date Recorded Not on file documented as of this encounter Plan of Treatment Not on filedocumented as of this encounter Procedures Procedure Name Priority Date/Time Associated Diagnosis Comme nts MRI LUMBAR SPINE WITHOUT CONTRAST Routine 11/13/2011 documented in this encounter Results MRI lumbar spine without contrast (11/13/2011) Anatomical Region Laterality Modality L-spine Magnetic Resonance Narrative This result has an attachment that is no t available. Historical Provider MD GLEZ MRI ORDERABLES documented in this encounter Visit Diagnoses Not on filedocumented in this encounter Care Teams Independent Living Instructor Relationship Specialty Start Date End Date Nayla Caputo MD PCP - General 12/13/11 10/25/15 [address] [place] [address] documented as of this encounter
--- OUTSIDE RECORDS SUMMARY | 2021-10-09 21:49 | XMS_ITS | Encounter Summary ---
:1940 [place] [address] Care Team Providers Name Role Phone Nayla Caputo MD Primary Care Provider Encounter Details Date Type Department Care Team Description 08/06/2011 Orders Only [facility] APRN [facility] [place] [address] PAIN MEDICINE [phone] [place] [phone] (Wo rk) Social History Tobacco Use Types Packs/Day Years Used Date Never Assessed Sex Assigned at Date Recorded Not on file documented as of this encounter Plan of Treatment Not on filedocumented as of this encounter Procedures Procedure Name Priority Date/Time Associated Diagnosis Comme nts FILM LIBRARY Routine 08/06/2011 4:30 AM Results f or this STORAGE ONLY DX EDT procedure ar e in SPINE the results section. documented in this encounter Results FILM LIBRARY- STORAGE ONLY DX SPINE (08/06/2011 4:30 AM EDT) Anatomical Region Laterality Modality Other Specimen (Source) Anatomical Collection Method Collection Time Re ceived Time Location / / Volume Laterality 08/06/2011 4:30 AM EDT Narrative 05/19/2013 6:32 PM EST This is a non-reportable exam. Procedure Note Joo Taveras - 05/19/2013Formatting of t his note might be different from the original. This is a non-reportable exam. [facility] APRN IMG FILM LIBRARY ORDERABLES documented in this encounter Visit Diagnoses Not on filedocumented in this encounter Care Teams Poacher Wringer Operator Relationship Specialty Start Date End Date Nayla Caputo MD PCP - General 12/13/11 10/25/15 [address] [place] [address] documented as of this encounter
--- OUTSIDE RECORDS SUMMARY | 2021-10-09 21:49 | XMS_ITS | Encounter Summary ---
:1940 Author Organization [facility] [place] [address] Care Team Providers Name Role Phone Nayla Caputo MD Primary Care Provider Reason for Visit Reason Comments Left Hip Pain questioning infection [facility] 20 14 Encounter Details Date Type Department Care Team Description 04/12/2014 Office Visit Orthopaedics at [facility], [address], unspecified; [facility] Petar Arriola MD [facility] [place] [address] Pain of left lower extremity; Jonathan Mitesh Bauer MD [facility] [place] [address] Hyperglycemia; [place] [address] Prosthetic hip infection, gaitan bsequent encounter; [phone] Infection of pr osthetic total hip joint, subsequent encounter Social History Tobacco Use Types Packs/Day [...] Sign Reading Time Taken Comments Blood Pressure 135/69 04/12/2014 1:16 PM EST Pulse 95 04/12/2014 1:16 PM EST Temperature 36.6 ??C (97.8 ??F) 04/12/2014 1:16 PM EST Respiratory Rate - - Oxygen Saturation - - Inhaled Oxygen Concentration - - Weight 80.2 kg (176 lb 12.8 oz) 04/12/2014 1:16 PM EST Height 162.6 cm (5' 4) 04/12/2014 1:16 PM EST Body Mass Index 30.35 04/12/2014 1:16 PM EST documented in this encounter Progress Notes Mitesh Bauer - 04/12/2014 3:05 PM EST Arthroplasty History: 1. L MILTON 05/14/12 Dr. Monte ([facility]) 2. I+D Left hip wound 05/01/13, Dr. Monte 3. I+D and vac placement 07/07/13, Dr. Monte 4. R MILTON Mitesh Bauer MD dictating for Dr. Villeda. DATE OF VISIT: 04/12/2014. The patient is seen today in conjunction with Dr. Villeda. This is a new patient office visit note. CHIEF COMPLAINT: Left hip infection. HISTORY OF PRESENT ILLNESS: Ms. Peña is a very pleasant 73-year-old female accompanied today by her and her daughter. She originally had her left total hip replaced by Dr. Monte as listed above in May 2012. She did well after surgery. However, approximately a year after surgery she noticed a bunch on her left thigh. She returned to see Dr. Monte, who diagnosed her with a superficial infection. This underwent I and D, and she was started on Keflex, which she has been taking since April 2013. She has never had any pain with this complication. She had a repeat I and D on 07/07/[address] Monte up at [facility], and a VAC was placed at that time. She had a draining wound for a long time. However, over the past couple of weeks that has been closing up with a scab. Again, she has had no problems with dislocation, no problems with pain in left hip and otherwise has been functioning well. She had a right total hip arthroplasty done as well prior to this, and that has been doing fine with no issues. She was recently seen by Dr. Wisdom and referred here to Dr. Villeda's clinic for consideration of explant and spacer placement. Recently, she had labs in January 2014 demonstrating a white blood cell count of 11.5 and a CRP of 248 as well as an ESR of 128. The patient denies any fevers or chills. She denies continued drainage from the wound. The erythema that she had back in April has now improved. She had an aspiration diagnosing her with MSSA that was pansensitive. She has been using a cane for the past six months due to balance problems. PAST MEDICAL HISTORY: Past medical history includes type 2 diabetes, hypertension, hyperlipidemia, and restless legs syndrome. PAST SURGICAL HISTORY: Past surgical history was reviewed and up to date in eD-H. MEDICATIONS: Also up to date and reviewed in eD-H. ALLERGIES: ALSO UP TO DATE AND REVIEWED IN ED-H. FAMILY HISTORY: Noncontributory. SOCIAL HISTORY: Noncontributory. PHYSICAL EXAM: General: Awake and alert in no acute distress. She walks with Trendelenburg gait. The left thigh is examined. There is mostly a well-healed surgical incision; however, at the distal aspect of the wound, there is an area that appears to be a sinus tract. It is covered over with an area of scab. Distally, she is neurovascularly intact with warm and well-perfused foot. She has ankle plantar and dorsiflexion intact. She has extremely strong abductor musculature when examined in right lateral decubitus position. There is no erythema surrounding the wound. She has painless internal and external rotation of the hip. IMAGING: X-rays demonstrate no evidence of loosening, nothing to suggest loosening, malposition, implant failure, or stress shielding. Labs are as above. ASSESSMENT AND PLAN: Ms. 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 She has been on Keflex since then. Now she is taking it for 500 mg three times daily. We had a long discussion with the patient and her family today regarding the options of treatment. We mentioned that she could continue with suppression with the Keflex given that she has not ever been sick. However, we did discuss that this may lead to her getting sick at some point if the infection worsens and resistance develops by the bacteria to the Keflex. She could also seed her other hip, which is also prosthetic in nature. She recently also suffered a retinal detachment for which she had surgery. She states that she is not cleared for any further surgery by her flux tube attendant until approximately May 17. Therefore, we would like to schedule the surgery shortly after May 17, probably in early May. She should return if things worsen in the interim. She should continue the Keflex. We will need to see her back for a preoperative visit. She will see Radha Roberts today to discuss postoperative rehab as well as payment for the IV antibiotics. We did discuss that she will likely need a PICC, and that she would have an antibiotic spacer placed and will be 50% weightbearing. All of the patient's and her family's questions were answered to their satisfaction today. We will see her back for preoperative visit with no x-rays needed at that time. Petar Arriola MD - 04/12/2014 3:00 PM EST I have seen the patient and reviewed Dr. Bauer's history/physical and I agree with the details as written. The assessment and plan were formulated in discussion with me and I agree with them as documented. In brief, this is a 73-year-old female who underwent a left hip replacement by Dr. Vo in 05/2012. She had issues with wound drainage postoperatively and underwent multiple irrigations and debridement. She has recently been referred for concern for infected total hip prosthesis. She was seen by one of my partners, Dr. Wisdom who had her aspirated, which has grown out MSSA. She was placed on Keflex prophylactically as she has got a total joint on the contralateral side. She presents to me now to discuss potential treatment options. She recently had a detached retina in her left eye and had to undergo a procedure for this. Per her flux tube attendant, she should not undergo any procedure at least until mid May. In regards to her hip, she reports no pain. She is ambulating without difficulty. She does have a scabbed area where she has had issues with the draining sinus in the past. She has been maintained on Keflex. She reports no fevers, chills, or systemic symptoms. ASSESSMENT AND PLAN: A 73-year-old female with [...] explant and spacer placement. 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 At this point, she would like to [...] She has the contact information for my patient scheduler Yenni Mckee and will call with her to pick a surgical date to have the hip removed. Implants are from [employer]. Will need screw chain saw driver to remove screws from cup and extraction tool for [employer] stem PETAR ARRIOLA MD, MS 04/12/2014 documented in this encounter Plan of Treatment Scheduled Orders Name Type Priority Associated Diagnoses Order S chedule EKG 12 Lead ECG Routine Debility, unspec ified Expected: 04/12/2014, Pain Of Left Low er Extremity Expires: 08/10/2014 Prosthetic hip infection, subsequent encounter documented as of this encounter Procedures Procedure Name Priority Date/Time Associated Diagnosis Comme nts TOTAL HIP PROSTHESIS, Routine 04/12/2014 2:04 PM EST REMOVAL documented in this encounter Results XR pelvis [...] AM EDT EXAMINATION: PELVIS+LATERAL HIP/LEFT CLINICAL HISTORY: milton explant TECHNIQUE: AP radiograph of the pelvis [...] the original. EXAMINATION: PELVIS+LATERAL HIP/LEFT CLINICAL HISTORY: milton explant TECHNIQUE: AP radiograph of the pelvis [...] attending Petar Arriola MD IMG DX ORDERABLES Urine culture Clean Catch Urine (06/14/2014 4:00 PM EDT) [facility] Method Time Signature Urine Culture CERNER ? Patient Name: DINESH PEÑA ?Ordered By: PETAR ARRIOLA [facility] ? MR#: [id number] ?LOC: ??4V ? /Sex: ??1940 (74 years), [...] Organization Address City/State/ZIP Code Phon e Number [place] [phone] CERNER MILLENNIUM Urinalysis with microscopic (06/14/2014 4:00 PM EDT) [facility] Method Time Signature Glucose UA Negative [...] CERNER MILLENNIUM Leukocytes UA Negative Negative mcL [facility] NIUM Appearance UA Clear Clear CERNER MILLENNIU M Spec [place] UA 1.027 1.002 - 1.030 [facility] LENNIUM Color UA Yellow Yellow CERNER MILLENNIUM RBC UA 2 0 - 4 /HPF CERNER MILLENNIUM WBC UA 4 0 - 5 /HPF CERNER MILLENNIUM Squam Epith UA <1 <=4 /HPF CERNER MILLENNI UM Specimen Anatomical Collection Method Collection Time Receive d Time (Source) Location / / Volume Laterality Urine specimen 06/14/2014 4:00 PM 015 4:08 (specimen) EDT PM EDT Resulting Agency Comment Spec In Lab Petar Arriola MD URINE ORDERABLES Performing Organization Address City/State/[place] [address] CERNER MILLENNIUM (ABNORMAL) Hemoglobin [...] [id number] Est Avg Gluc See note mg/dL CERNER [...] with hemoglobinopathies. Additional resources are available on [facility] website: http://[employer]/Webcomadacalc Harman HINDS, Harris Coy, Angela R, et al. ??Tr anslating the A1C assay into estimated average glucose values. ??Diabetes Care 2008:31(8):8078-7524. Specimen Anatomical Collection Method Collection Time Receive d Time (Source) Location / / Volume Laterality Blood specimen 06/14/2014 11:40 5 (specimen) AM EDT 11:49 AM EDT Resulting Agency Comment Spec In Lab Petar Arriola MD CHEMISTRY ORDERABLES Performing Organization Address City/[facility] Phon e Number [address] CERNER MILLENNIUM Protein, total (06/14/2014 11:40 AM EDT) P athologist Signature Total Protein 7.9 6.1 - 8.0 CERNER gm/dL MILLENNIUM Specimen Anatomical Collection Method Collection Time Receive d Time (Source) Location / / Volume Laterality Blood specimen 06/14/2014 11:40 5 (specimen) AM EDT 11:49 AM EDT Resulting Agency Comment Spec In Lab Petar Arriola MD CHEMISTRY ORDERABLES Performing Organization Address City/[facility] Phon e Number [address] CERNER MILLENNIUM Albumin Level (06/14/2014 11:40 AM EDT) P athologist Signature Albumin 3.9 3.2 - 5.2 CERNER gm/dL MILLENNIUM Specimen Anatomical Collection Method Collection Time Receive d Time (Source) Location / / Volume Laterality Blood specimen 06/14/2014 11:40 5 (specimen) AM EDT 11:49 AM EDT Resulting Agency Comment Spec In Lab Petar Arriola MD CHEMISTRY ORDERABLES Performing Organization Address City/[facility] [place] [place] [address] CERNER MILLENNIUM High Sensitivity CRP (06/14/2014 11:40 AM EDT) athologist Signature CRP High Sens 88.5 mg/L [...] Arriola MD CHEMISTRY ORDERABLES Performing Organization Address City/[facility]/[place] [address] CERNER MILLENNIUM (ABNORMAL) Sedimentation rate (06/14/2014 11:40 AM EDT) athologist Signature Sed Rate 94 (H) 0 - 20 CERNER mm/hr MILLENNIUM Specimen Anatomical Collection Method Collection Time Receive d Time (Source) Location / / Volume Laterality Blood specimen 06/14/2014 11:40 5 (specimen) AM EDT 11:49 AM EDT Resulting Agency Comment Spec In Lab Petar Arriola MD HEMATOLOGY ORDERABLES Performing Organization Address City/[facility]/ZIP Code Phon e Number [address] CERNER MILLENNIUM Prothrombin Time (06/14/2014 11:40 AM EDT) athologist Signature PT 14.0 12.5 - 15.5 [...] Arriola MD HEMATOLOGY ORDERABLES Performing Organization Address City/[facility]/[place] [address] CERNER MILLENNIUM (ABNORMAL) Basic Metabolic Panel (non-fasting) (06/14/2014 11:40 AM EDT) P athologist Signature Glucose Lvl 102 60 - 199 CERNER mg/dL MILLENNIUM Comment: Diabetes: >=200 mg/dL plus symp toms BUN 17 8 - 18 mg/dL CERNER MILLENNIUM Creatinine 0.68 (L) 0.70 - 1.20 mg/dL CERNER MILL ENNIUM Comment: Please note that the pediatric reference intervals supplied above were not validated at [facility]. Results from pediatri c patients should be [...] the following links into your internet browser. http://[employer]/DHnkdep http://[employer]/DHMCnkf Specimen Anatomical Collection Method Collection Time Receive d Time (Source) Location / / Volume Laterality Blood specimen 06/14/2014 11:40 5 (specimen) AM EDT 11:49 AM EDT Resulting Agency Comment Spec In Lab Petar Arriola MD CHEMISTRY ORDERABLES Performing Organization Address City/State/ZIP [place] [address] CERNER MILLENNIUM documented in this encounter Visit Diagnoses Diagnosis Debility, unspecified Pain of left lower extremity Hyperglycemia Other abnormal glucose Prosthetic hip infection, subsequent enc ounter Infection of prosthetic total hip joint, subsequent encounter Debility, unspecified Pain of left lower extremity Prosthetic hip infection, subsequent enc ounter documented in this encounter Care Teams Assembler Chassis Relationship Specialty Start Date End Date Nayla Caputo MD PCP - General 12/13/11 10/25/15 [address] [place] [address] documented as of this encounter
--- OUTSIDE RECORDS SUMMARY | 2021-10-09 21:49 | XMS_ITS | Encounter Summary ---
:1940 Author Organization [facility] Address [facility] [place] [address] Care Team Providers Name Role Phone Nayla Caputo MD Primary Care Provider Encounter Details Date Type Department Care Team Description 06/14/2014 Clinical Support Same Day at [facility] Debility, unspecified; [facility] Pain of l eft lower extremity; Drive Prosthetic hip infection, [place] [address] Social History Tobacco Use Types Packs/Day [...] Taken Comments Blood Pressure - - Pulse 107 06/14/2014 10:29 AM EDT Temperature - - Respiratory Rate - - Oxygen Saturation 98% 06/14/2014 10:29 AM EDT Inhaled Oxygen Concentration - - Weight 82.7 kg (182 lb 6.4 oz) 06/14/2014 10:29 AM EDT Height 157.5 cm (5' 2.01) 06/14/2014 10:29 AM EDT Body Mass Index 33.35 06/14/2014 10:29 AM EDT documented in this encounter Progress Notes Sin Lanza RN - 06/14/2014 11:11 AM EDT PAT questionnaire reviewed with patient and daughter while in Pre Admission testing. Patientstates when she had her hip surgery she could hear conversations and loud noises, she did not like that at all. Pre-operative instruction booklet reviewed. Patient verbalizes a good understanding of all information. PLAN Testing: Blood work today, EKG was scanned. Special medication instructions: none Procedure date: 06-23-2014 documented in this encounter Plan of Treatment Not on filedocumented as of this encounter Visit Diagnoses Diagnosis Debility, unspecified Pain of left lower extremity Prosthetic hip infection, subsequent enc ounter documented in this encounter Care Teams Tool Procurement Coordinator Relationship Specialty Start Date End Date Nayla Caputo MD PCP - General 12/13/11 10/25/15 [address] [place] [address] documented as of this encounter
--- OUTSIDE RECORDS SUMMARY | 2021-10-09 21:49 | XMS_ITS | Encounter Summary ---
:1940 [place] [address] Care Team Providers Name Role Phone Nayla Caputo MD Primary Care Provider Encounter Details Date Type Department Care Team Description 08/04/2012 Orders Only Orthopaedics at [facility] Samm Wisdom MD [facility] [place] [address] ORTHOPAEDIC SURGERY [phone] [place], [place] [address] (Wo rk) Social History Tobacco Use Types Packs/Day Years Used Date Never Smoker Sex Assigned at Date Recorded Not on file documented as of this encounter Plan of Treatment Not on filedocumented as of this encounter Procedures Procedure Name Priority Date/Time Associated Diagnosis Comme nts FILM LIBRARY Routine 08/04/2012 9:05 AM Results f or this STORAGE ONLY DX EDT procedure ar e in PELVIS the results section. documented in this encounter Results Film Library- Storage only DX Pelvis (08/04/2012 9:05 AM EDT) Anatomical Region Laterality Modality Other Specimen (Source) Anatomical Collection Method Collection Time Re ceived Time Location / / Volume Laterality 08/04/2012 9:05 AM EDT Narrative 12/02/2013 9:19 AM EDT This is a Non-reportable exam Procedure Note 12/02/2013 This is a Non-reportable exam Samm Wisdom MD IMG FILM LIBRARY ORDERABLES documented in this encounter Visit Diagnoses Not on filedocumented in this encounter Care Teams Vp Training Relationship Specialty Start Date End Date Nayla Caputo MD PCP - General 12/13/11 10/25/15 [address] [place] [address] documented as of this encounter
--- OUTSIDE RECORDS SUMMARY | 2021-10-09 21:49 | XMS_ITS | Encounter Summary ---
:1940 [place] [address] Care Team Providers Name Role Phone Nayla Caputo MD Primary Care Provider Encounter Details Date Type Department Care Team Description 08/06/2011 Orders Only Spine Center at [facility] Arely Gorman APRN [facility] [place] [place] [address] PAIN MEDICINE [phone] [place] [id number] (Wo rk) Social History Tobacco Use Types Packs/Day Years Used Date Never Assessed Sex Assigned at Date Recorded Not on file documented as of this encounter Plan of Treatment Not on filedocumented as of this encounter Procedures Procedure Name Priority Date/Time Associated Diagnosis Comme nts FILM LIBRARY Routine 08/06/2011 7:15 AM Results f or this STORAGE ONLY DX EDT procedure ar e in PELVIS the results section. documented in this encounter Results FILM LIBRARY- STORAGE ONLY DX PELVIS (08/06/2011 7:15 AM EDT) Anatomical Region Laterality Modality Other Specimen (Source) Anatomical Collection Method Collection Time Re ceived Time Location / / Volume Laterality 08/06/2011 7:15 AM EDT Narrative 05/19/2013 6:32 PM EST This is a non-reportable exam. Procedure Note Joo Taveras - 05/19/2013Formatting of t his note might be different from the original. This is a non-reportable exam. Arely Gorman APRN IMG FILM LIBRARY ORDERABLES documented in this encounter Visit Diagnoses Not on filedocumented in this encounter Care Teams English Teacher Relationship Specialty Start Date End Date Nayla Caputo MD PCP - General 12/13/11 10/25/15 [address] [place] [address] documented as of this encounter
--- OUTSIDE RECORDS SUMMARY | 2021-10-09 21:49 | XMS_ITS | Encounter Summary ---
:1940 Author Organization [facility] [place] [address] Care Team Providers Name Role Phone Nayla Caputo MD Primary Care Provider Encounter Details Date Type Department Care Team Description 02/26/2014 Hospital Encounter Laboratory Samm Paige S/P hip replacement [facility] MD Luis [facility] [address] ORTHOPAEDIC [phone] [place] [address] Social History Tobacco Use Types Packs/Day Years [...] day prn documented as of this encounter Plan of Treatment Not on filedocumented as of this encounter Procedures Procedure Name Priority Date/Time Associated Comments Diagnosis NUCLEATED RED BLOOD STAT 02/26/2014 12:01 Resu lts for this CELLS PM EST procedure are i n the results section. HEMOGRAM STAT 02/26/2014 12:01 S/P hip replacement Resu lts for this PM EST procedure are i n the results section. DIFFERENTIAL, STAT 02/26/2014 12:01 S/P hip replacement Res ults for this AUTOMATED PM EST procedure are i n the results section. BLOOD CULTURE Routine 02/26/2014 12:01 S/P hip replacement Res ults for this PM EST procedure are i n the results section. SEDIMENTATION RATE STAT 02/26/2014 12:01 S/P hip replacemen t Results for this PM EST procedure are i n the results section. CBC (WITH DIFF) STAT 02/26/2014 12:01 S/P hip replacement PM EST CRP, CARDIAC RISK (HS STAT 02/26/2014 12:01 S/P hip replace ment Results for this CRP) PM EST procedure are i n the results section. documented in this encounter Results Nucleated Red Blood Cells (02/26/2014 12:01 PM EST) P athologist Signature nRBC % Auto 0.0 % CERNER MILLENNIUM nRBC Abs Auto 0.000 0.000 - CERNER 0.012 MILLENNIUM x10(3)/mcL Specimen Anatomical Collection Method Collection Time Receive d Time (Source) Location / / Volume Laterality Blood specimen 02/26/2014 12:01 4 (specimen) PM EST 12:08 PM EST Resulting Agency Comment Spec In Lab Samm Paige MD HEMATOLOGY ORDERABLES Performing Organization Address City/State/ZIP Code Phon e Number [place] [phone] [place] FeetIUM (ABNORMAL) Differential, Automated (02/26/2014 12:01 PM EST) Patholo gist Method Time Signature Neutrophils % 75.3 % CERNER MILLENNIUM Neutr Abs (ANC) 8.64 (H) 1.50 - CERNER 6.30 MILLENNIUM x10(3)/mc L Lymphocytes % 15.3 % CERNER MILLENNIUM Lymphocytes Abs 1.8 1.0 - 3.6 CERNER x10(3)/mc MILLENNIUM L Monocytes % 7.9 % CERNER MILLENNIUM Monocyte Abs 0.9 0.2 [...] Location / / Volume Laterality Blood specimen 02/26/2014 12:01 4 (specimen) PM EST 12:08 PM EST Resulting Agency Comment Spec In Lab Samm Paige MD HEMATOLOGY ORDERABLES Performing Organization Address City/State/[place] [address] CERNER MILLENNIUM (ABNORMAL) Hemogram (02/26/2014 12:01 PM EST) P athologist Signature WBC 11.5 (H) 4.0 - 10.0 CERNER x10(3)/mcL MILLENNIUM RBC 3.65 (L) 3.93 - CERNER 5.22 MILLENNIUM x10(6)/mcL Hemoglobin 8.9 (L) 11.2 - CERNER 15.7 gm/dL MILLENNIUM Hematocrit 29.2 (L) 34.0 - CERNER 45.0 % MILLENNIUM MCV 80.0 79.0 - CERNER 94.0 fL MILLENNIUM MCH 24.4 (L) 26.6 - CERNER 32.2 pg MILLENNIUM MCHC 30.5 (L) 32.0 - CERNER 36.5 gm/dL MILLENNIUM Platelets 470 (H) 145 - 370 CERNER x10(3)/mcL MILLENNIUM RDWSD 52.3 (H) 35.0 - CERNER 46.0 fL MILLENNIUM RDWCV 17.8 (H) 10.9 - CERNER 14.4 % MILLENNIUM MPV 8.6 (L) 9.0 - 12.0 CERNER fL MILLENNIUM Specimen Anatomical Collection Method Collection Time Receive d Time (Source) Location / / Volume Laterality Blood specimen 02/26/2014 12:01 4 (specimen) PM EST 12:08 PM EST Resulting Agency Comment Spec In Lab Samm Paige MD HEMATOLOGY ORDERABLES Performing Organization Address City/State/[place] [address] OBDULIONER MILLENNIUM Blood culture (02/26/2014 12:01 PM EST) [facility] Method Time Signature Blood Culture CERNER ? Patient Name: MARCIA PEÑA ? Ordered By: SAMM PAIGE ? MR#: [id number] ?LOC: ??3A ? /Sex: ??1940 (73 years), ? Female ? PROCEDURE: Blood Culture ?SOURCE: Blood ? COLLECTED: 02/26/2014 12:01 ? BODY SITE: Left Arm ? STARTED: 02/26/2014 12:13 ? FINAL REPORT ? Final Report ? Verified:03/03/2014 15:01 ? No growth at 5 days. ? PRELIMINARY REPORT ? Preliminary Report ? Verified:03/02/2014 15:01 ? No growth at 4 days. ? Specimen Anatomical Collection Method Collection Time Receive d Time (Source) Location / / Volume Laterality Blood specimen STRUCTURE OF LEFT 02/26/2014 12:01 01/31 (specimen) UPPER LIMB / PM EST 12:13 PM EST Unknown Resulting Agency Comment Spec In Lab Samm Paige MD MICROBIOLOGY - BLOOD ORDERAB LES Performing Organization Address City/State/ZIP Code Phon e Number [address] CERNER MILLENNIUM (ABNORMAL) Sedimentation rate (02/26/2014 12:01 PM EST) P athologist Signature Sed Rate 128 (H) 0 - 20 CERNER mm/hr MILLENNIUM Specimen Anatomical Collection Method Collection Time Receive d Time (Source) Location / / Volume Laterality Blood specimen 02/26/2014 12:01 4 (specimen) PM EST 12:08 PM EST Resulting Agency Comment Spec In Lab Samm Paige MD HEMATOLOGY ORDERABLES Performing Organization Address City/[facility]/ZIP Code Phon e Number [address] CERNER MILLENNIUM High Sensitivity CRP (02/26/2014 12:01 PM EST) P athologist Signature CRP High Sens 247.9 mg/L CERNER MILLENNIUM Comment: rechecked by ga Interpretations: 1) For accurate cardiac risk assessment, [...] Location / / Volume Laterality Blood specimen 02/26/2014 12:01 4 (specimen) PM EST 12:08 PM EST Resulting Agency Comment Spec In Lab Samm Paige MD CHEMISTRY ORDERABLES Performing Organization Address City/State/ZIP Code Phon e Number [address] [facility] documented in this encounter Visit Diagnoses Diagnosis S/P hip replacement Hip joint replacement by other means documented in this encounter Care Teams De Icer Element Winder Relationship Specialty Start Date End Date Nayla Caputo MD PCP - General 12/13/11 10/25/15 [address] [place] [address] documented as of this encounter
--- OUTSIDE RECORDS SUMMARY | 2021-10-09 21:49 | XMS_ITS | Encounter Summary ---
:1940 Author Organization [facility] Address [facility] [place] [address] Care Team Providers Name Role Phone Nayla Caputo MD Primary Care Provider Reason for Visit Reason Onset Date Comments Questions 06/15/[address] Mario pope Encounter Details Date Type Department Care Team Description 06/15/2014 Telephone Orthopaedics at [facility] Swetha Dempsey, Questions (clearance [facility] María redman RN by Dr. Pena) [place] [address] Social History Tobacco Use Types Packs/Day [...] Telephone Encounter - Swetha Dempsey, RN - 06/15/2014 9:45 AM EDT Arthroplasty History: 1. L MILTON 05/14/12 Dr. Monte ([facility]) 2. I+D Left hip wound 05/01/13, Dr. Monte 3. I+D and vac placement 07/07/13, Dr. Monte 4. R MILTON 2007 or 2008 I spoke with Power at Dr. Jean Mosher's office (Opthalmology) at [facility] ([phone]). The patient was seen for her 2 month follow up on 05/17/14 s/p retinal detachment surgery. She was considered healed, no contraindications for surgery as scheduled on 06/22/14 for CECY left MILTON with Dr. Arriola. She will have a 5 month follow up in July. Patient reported yesterday during her visit that shewas cleared for surgery by Dr. Mosher during the 2 month visit. documented in this encounter Plan of Treatment Not on filedocumented as of this encounter Visit Diagnoses Not on filedocumented in this encounter Care Teams City Recorder Relationship Specialty Start Date End Date Nayla Caputo MD PCP - General 12/13/11 10/25/15 [address] [place] [address] documented as of this encounter
--- OUTSIDE RECORDS SUMMARY | 2021-10-09 21:49 | XMS_ITS | Encounter Summary ---
:1940 [place] [address] Care Team Providers Name Role Phone Nayla Caputo MD Primary Care Provider Encounter Details Date Type Department Care Team Description 05/14/2012 Orders Only Orthopaedics at [facility] Samm Wisdom MD [facility] [place] [address] ORTHOPAEDIC SURGERY [phone] [place], [place] [address] (Wo rk) Social History Tobacco Use Types Packs/Day Years Used Date Never Smoker Sex Assigned at Date Recorded Not on file documented as of this encounter Plan of Treatment Not on filedocumented as of this encounter Procedures Procedure Name Priority Date/Time Associated Diagnosis Comme nts FILM LIBRARY Routine 05/14/2012 9:05 AM Results f or this STORAGE ONLY DX EST procedure ar e in PELVIS the results section. documented in this encounter Results Film Library- Storage only DX Pelvis (05/14/2012 9:05 AM EST) Anatomical Region Laterality Modality Other Specimen (Source) Anatomical Collection Method Collection Time Re ceived Time Location / / Volume Laterality 05/14/2012 9:05 AM EST Narrative 12/02/2013 9:18 AM EDT This is a Non-reportable exam Procedure Note 12/02/2013 This is a Non-reportable exam Samm Wisdom MD IMG FILM LIBRARY ORDERABLES documented in this encounter Visit Diagnoses Not on filedocumented in this encounter Care Teams Roll Skinner Relationship Specialty Start Date End Date Nayla Caputo MD PCP - General 12/13/11 10/25/15 [address] [place] [address] documented as of this encounter
--- OUTSIDE RECORDS SUMMARY | 2021-10-09 21:49 | XMS_ITS | Encounter Summary ---
:1940 Author Organization [facility] Address [place] [address] Care Team Providers Name Role Phone Nayla Caputo MD Primary Care Provider Reason for Referral Consultation (Routine) - Closed Specialty Diagnoses / Procedures Referred By Contact Refer red To Contact Pain Management Diagnoses Lumbar degenerative disc disease Arely Gorman, Martha Pain Management 3d PARTS PERSON [facility] [address] [place] [address] [place] [address] Referral ID Status Reason Start Date Expiration Date Visits V isits Requested Authorized [id number] Closed Consult Only 12/13/2011 06/10/2012 1 1 Reason for Visit Reason Comments Left Leg Pain thigh and butt pain, weaknes s, Back Pain Encounter Details Date Type Department Care Team Description 12/13/2011 Office Visit [facility] at Arely Gorman, Lumbar degenerative Achille PARTS PERSON disc disease (Primary [facility] Dx) [address] [place] [address] [place] [address] [phone] Social History Tobacco Use Types Packs/Day Years Used Date Never Smoker Sex Assigned at Date Recorded Not on file documented as of this encounter Last Filed Vital Signs Vital Sign Reading Time Taken Comments Blood Pressure 123/62 12/13/2011 3:32 PM EDT Pulse 80 12/13/2011 3:32 PM EDT Temperature - - Respiratory Rate - - Oxygen Saturation 97% 12/13/2011 3:32 PM EDT Inhaled Oxygen Concentration - - Weight 86.2 kg (190 lb) 12/13/2011 3:32 PM EDT Height 160 cm (5' 3) 12/13/2011 3:32 PM EDT Body Mass Index 33.66 12/13/2011 3:32 PM EDT documented in this encounter Progress Notes Arely Gorman, PARTS PERSON - 12/13/2011 4:29 PM EDT Chief complaint: Left anterior thigh pain and buttock pain. Subjective: This is a pleasant, 71-year-old female with no real back pain until last few days ago but left anterior thigh pain and buttock pain that started gradually over time. The pain starts in the groin and radiates to above the knee. It gives out. It's 8 on a scale of 10 and feels as if it won'thold me low score. Her symptoms are better with ibuprofen or sitting and worse with walking. She doesn't sleep well and she's until recently been using a walker but has now switched to a cane. She's doing physical therapy and that is helpful. Her review of systems is negative for GI, or constitutionalsymptoms positive for bladder urgency and frequency. Negative for all other symptoms. She's had a right total hip replacement and she does physical therapy was helpful she also had gabapentin which wasnot helpful and she's taking ibuprofen which is also helpful. Her medications and allergies were reviewed. Objective: This is an overweight, 71-year-old female with a stated height of 5 feet 3 inches and a stated weight of 190 pounds. Her shoulders, hips, knees are level to inspection and she's not particularly tender to palpation. She stands with upright posture but head jutting forward. Her gait is nonantalgic and she can walk briefly on heels and toes while holding onto me. Her lumbar flexibility is quite good when she can bend to touch the floor. Extension is not so good. Lateral bending is full. Shehas normal strength and sensation and reflexes in the lower extremities. Femoral tension stretch produces some back pain but no groin pain. She has no Holliday or clonus and Babinski with downgoing toes. X-rays of her low back and hip reveal lumbar facet generative changes and hip degeneration on the left. Her MRI does demonstrate some foraminal narrowing at L2-3 and L 34 but his bilateral and certainly not any worse on the left than it is on the right and mild in nature. There is no central canal stenosis. Assessment: Patient has findings somewhat suggestive of spinal stenosis but also equally suggestive of degenerative hip disease. Plan: I did discuss with the patient after reviewing her imaging with her that her images are not entirely suggestive of spinal stenosis. The foraminal narrowing is quite narrow and her symptoms seem to be out of proportion with the images. She has seen in orthopedics however did not feel that her findings were consistent with hip disease either. We mutually agreed after discussion of the risks and benefits to have her go forward with an epidural steroid injection to see if that'll alleviate her symptoms she is going to continue with physical therapy in the meantime and I stressed that she should exercise regularly either continuing with her exercise bike or treadmill or elliptical but leaning slig htly forward to take any pressure off the back and The facets if her symptoms may be coming from herback. All followup with her 2 weeks after her injection so we can determine her response and determine whether or not we would recommend a repeat injection, referral to a surgeon and/or referral back to the orthopedist to reevaluate her hip. All questions were answered and 35 minutes of this 45 minutevisit was spent in [id number] discussion of present symptoms and future plan of care documented in this encounter Plan of Treatment Scheduled Referrals Name Type Priority Associated Diagnoses Order S chedule REFERRAL TO PAIN Outpatient Referral Routine Lumbar degenerati ve Ordered: CLINIC disc disease 12/13/2011 documented as of this encounter Visit Diagnoses Diagnosis Lumbar degenerative disc disease - Prima ry Degeneration of lumbar or lumbosacral in tervertebral disc documented in this encounter Care Teams Finance Director Relationship Specialty Start Date End Date Nayla Caputo MD PCP - General 12/13/11 10/25/15 [address] [place] [address] documented as of this encounter
--- OUTSIDE RECORDS SUMMARY | 2021-10-09 21:49 | XMS_ITS | Encounter Summary ---
:1940 [place] [address] Care Team Providers Name Role Phone Nayla Caputo MD Primary Care Provider Encounter Details Date Type Department Care Team Description 04/14/2014 External Results Orthopaedics at [facility] [place] [address] Social History Tobacco Use Types Packs/Day [...] Date/Time Associated Diagnosis Comme nts IMPLANTABLE DEVICES SCAN Routine 05/14/2012 documented in this encounter Results Scan Doc: Implantable Devices (05/14/2012) Narrative This result has an attachment that is no t available. Historical Provider MD MEDIA MGR SCAN EXT ORDR/RSLT documented in this encounter Visit Diagnoses Not on filedocumented in this encounter Care Teams Carburetor Mechanic Relationship Specialty Start Date End Date Nayla Caputo MD PCP - General 12/13/11 10/25/15 [address] [place] [address] documented as of this encounter
--- OUTSIDE RECORDS SUMMARY | 2021-10-09 21:49 | XMS_ITS | Encounter Summary ---
:1940 [place] [address] Care Team Providers Name Role Phone Nayla Caputo MD Primary Care Provider Encounter Details Date Type Department Care Team Description 11/25/2013 Orders Only Orthopaedics at [facility] Samm Wisdom MD [facility] [place] [address] ORTHOPAEDIC SURGERY [phone] [place], [place] [address] (Wo rk) Social History Tobacco Use Types Packs/Day Years Used Date Never Smoker Sex Assigned at Date Recorded Not on file documented as of this encounter Plan of Treatment Not on filedocumented as of this encounter Procedures Procedure Name Priority Date/Time Associated Diagnosis Comme nts FILM LIBRARY Routine 11/25/2013 9:05 AM Results f or this STORAGE ONLY DX EDT procedure ar e in PELVIS the results section. documented in this encounter Results Film Library- Storage only DX Pelvis (11/25/2013 9:05 AM EDT) Anatomical Region Laterality Modality Other Specimen (Source) Anatomical Collection Method Collection Time Re ceived Time Location / / Volume Laterality 11/25/2013 9:05 AM EDT Narrative 12/02/2013 9:27 AM EDT This is a Non-reportable exam Procedure Note 12/02/2013 This is a Non-reportable exam Samm Wisdom MD IMG FILM LIBRARY ORDERABLES documented in this encounter Visit Diagnoses Not on filedocumented in this encounter Care Teams Firer Helper Relationship Specialty Start Date End Date Nayla Caputo MD PCP - General 12/13/11 10/25/15 [address] [place] [address] documented as of this encounter
--- OUTSIDE RECORDS SUMMARY | 2021-10-09 21:49 | XMS_ITS | Encounter Summary ---
:1940 Author Organization [place] [address] Care Team Providers Name Role Phone Nayla Caputo MD Primary Care Provider Reason for Visit Reason Onset Date Comments Questions 02/08/2014 Encounter Details Date Type Department Care Team Description 02/08/2014 Telephone Orthopaedics at [facility] Samm Paige MD Questions [facility] [address] ORTHOPAEDIC SURGERY [phone] [place], [place] [address] (Wo rk) Social History Tobacco [...] Telephone Encounter - Raquel Campbell RN - 02/08/2014 11:50 AM EST Message sent to Dr. Paige. Should we stop the ABX and schedule the hip aspiration 2 weeks later. Telephone Encounter - Alesha Byrd - 02/08/2014 9:53 AM EST Who is calling: DR. KEITA OFFICE What is the question: MARCIA IS WONDERING WHEN SHE WILL BE SET UP WITH INFECTIOUS DISEASE AND LAB WORKSHE HAS NOT HEARD ANYTHING SINCE HER APPOINTMENT ON 01/26/[address] PAIGE. Best number to reach the caller: [phone] documented in this encounter Plan of Treatment Not on filedocumented as of this encounter Visit Diagnoses Not on filedocumented in this encounter Care Teams Web Manager Relationship Specialty Start Date End Date Nayla Caputo MD PCP - General 12/13/11 10/25/[address] [place] [id number] documented as of this encounter
--- OUTSIDE RECORDS SUMMARY | 2021-10-09 21:49 | XMS_ITS | Encounter Summary ---
:1940 [place] [address] Care Team Providers Name Role Phone Steven Galan MD Primary Care Provider Encounter Details Date Type Department Care Team Description 06/23/2014 Surgery Main Operating Room Petar Arriola, @ [facility] (WRVU 24.35) [facility] Jonathan [place] [address] [place], [place] [id number] [phone] (Wo rk) Social History Tobacco Use Types [...] Dinesh Peña Patient Age: 74 y.o. Language: East Timorese Race: White Ethnicity: Not nor Admit date: 06/23/2014 Discharge date and time: 06/27/2014 Attending Physician: Petar Arriola MD Discharge Physician: Petar Arriola MD Follow-up Recommendations for Providers: See discharge instructions for additional details. Future Appointments Date Time Provider Department Center 07/30/2014 10:10 AM Petar Arriola MD [facility] 3C None Inpatient Provider Contact Information: Petar Arriola MD Joints: [phone] After hours and weekends, call [facility] Title I Assistant, , and have the Orthopedic resident paged. [...] placement: 06/26/14 Catheter type: PICC Lot number: [id number] Procedure Technique: Skin was prepped with chlorhexidine. [...] total hip replacement by Dr. Vo at [facility] in 05/2012. She had issues [...] did undergo an eye procedure and her telephone appointment clerk did not want her to delay any [...] was draining recently closed was referred to [facility] orthopedic clinic for evaluation of possible PJI [...] the assistance of daily visit from a or assistant. Pt reports that she is eating [...] TID, each provides 250kcal and 14g protein executive chef assistant will continue to see pt daily [...] 326 Last 3 Lytes Recent Labs 06/27/14 0355 06/26/14 0358 06/25/14 0338 NA 140 140 135 K 4.3 4.2 3.7 CL 102 102 100 CO2 26 25 23 BUN 14 14 13 CREATININE 0.76 0.77 0.94 Last 3 LFTs Recent Labs 06/24/14 1156 AST 14 ALT 7 ALKPHOS 58 BILITOT 0.2 BILIDIR 0.1 Last Ca, Mg, Phos Recent Labs 06/27/14 0355 CALCIUM 8.2* Last 3 Coags Recent Labs [...] Blood Sugar Diagnostic Strp Commonly known as: Soma Water ULTRA TEST Use as instructed Quantity: 60 [...] FAX a copy of the coumadin[facility] - [phone]. 2. Activity: Enhanced: Partial weight bearing 50% [...] fiber while on narcotic pain meds. 5. Azusa/Sutures: Staple/suture removal 11-14 days after surgery (approximately [...] results to: OPAT Program Infectious Disease Section [facility], [place] [address] FAX: After hours, please contact the Infectious Disease Physician flight communications operator at . Instructions Given to Patient at [...] please call the Orthopedic Clinic Nurse at [phone] for further dose instructions. If it is after 5pm oron the weekends, the Orthopedic resident flight communications operator will be managing your dosing (please call [phone] and ask for them to be paged). [...] not take or discontinue any prescription or gabr-acz-vydaixs medications without asking your doctor or pharmacist [...] bowel movement. You can also take an bjub-xqs-unjbtod medication, miralax if needed to combat constipation. [...] as much as possible. Call your surgeon (#[phone]) if: ?? You have a fever > 101.5 or experience chills ?? Increased discharge from the incision ?? Any redness or swelling around the incision ?? Increased pain or change in the pain that is not controlled by your pain medications FOLLOW-UP APPOINTMENTS: 1. You will have followup appointments at [facility] as indicated below in Future Appointment and [...] maintain patency 4. Please notify OPAT Program ([phone]) whenever you are unable to withdraw blood. Future Appointments and Orders Future Appointments Provider Department Dept Phone 07/30/2014 10:10 AM Petar Arriola MD Orthopaedics [phone] Joint Appt Ortho, Health Question Three C Orthopaedics [phone] Future Orders Complete By Expires OPAT: Order / Recommendation for Post Discharge IV Antibiotic Management [EVN008 CPT(R)] As directed Process Instructions: If no [...] cm (5' 3) Referral for Outpatient Antibiotics [AOX8040 CPT(R)] As directed Process Instructions: Scheduling Instructions: Questions: Vendor / contact information: [facility] Patient location post discharge: home Service requested: IV abx Start date: Responsible MD post discharge contact info: PCP Primary Care Provider: STEVEN GALAN MD [phone] Discharge References/Attachments None documented in this encounter [...] please call the Orthopedic Clinic Nurse at [phone] for further dose instructions. If it is after 5pm oron the weekends, the Orthopedic resident flight communications operator will be managing your dosing (please call [phone] and ask for them to be paged). [...] not take or discontinue any prescription or aqoq-iim-vcdcxhg medications without asking your doctor or pharmacist [...] bowel movement. You can also take an ducu-wix-kgbcvrs medication, miralax if needed to combat constipation. [...] as much as possible. Call your surgeon (#[phone]) if: ?? You have a fever > 101.5 or experience chills ?? Increased discharge from the incision ?? Any redness or swelling around the incision ?? Increased pain or change in the pain that is not controlled by your pain medications FOLLOW-UP APPOINTMENTS: 1. You will have followup appointments at [facility] as indicated below in Future Appointment and [...] maintain patency 4. Please notify OPAT Program ([phone]) whenever you are unable to withdraw blood. [...] prescriptions given to family to provide to [facility] rehab. Pt discharged to [facility] via family. Report called and given to [facility] @[facility]. Sri Braxton RN - 06/27/2014 12:45 PM EDT Office of Care Management/Clinical Cvicu Nurse (CRC)/Discharge Planning Note CRC Sri Braxton RN (pager [phone]) Patient: Dinesh Peña : 1940 (74 y.o.) Home: [place] [address]* LOS: 4 days Care reviewed with Dr. Rick Bains. Reviewed record and interviewed patient. Reviewed CRC role andservices accepted. ?? Anticipated barriers to discharge: None. Patient has accepted rehab bed offer from [facility] ([place], [place]) for today. Transfer packet is with [...] 06/27/2014 11:30 AM EDT Office of Care Management/Homicide Squad Captain Patient Name: Dinesh Peña : 1940 Patient has been offered a Swing bed at [facility]. Family will transport around 12 PM. Please have MD call [phone] (Dr. Rojas) Please call Nursing Report to [phone] (Swati). Info to accompany patient: Narcotic Prescriptions Copies of Medication Administration Records and IV sheets for past 10 days. Plan: Homicide Squad Captain will be available to the patient and CRC for further assistance. Patient will be discharged to: [facility] [address] [place] [address] Sandy Wan Homicide Squad Captain Ranulfo Canchola - 06/27/2014 6:03 AM EDT [...] In: 4160 [P.O.:2950; I.V.:160; Blood:1050] Out: 1974 [Urine:1975] PE: Left LE Incisional vac taken down [...] likely go to swing bed today at [facility] now that Hgb remained stable Shawna Steiner OTA - 06/26/2014 4:24 PM EDT Occupational Therapy [...] interventions: 19 minutes; TE-F x 1 Pager: [phone] MARI Miranda Occupational Therapy Rehabilitation Department Gayatri [...] nurses med cart (~15') and back to chair (~15), hume-gs-gwpb gait pattern and cues for 50% wt [...] to supine transfers independently using the leg visor installer. progressing 4. Pt. to perform sit to [...] 35 minutes Total timed interventions: 35 minutes TEYunior, TE-S Gayatri Mayer, PT 06/26/2014 Pager: [phone] Physical Therapy Rehabilitation Department Patient seen and note written in conjunction with Su Mario, SPT. KEYUR CHAMPAGNE, PT Pager#[phone] Sri Braxton RN - 06/26/2014 2:02 PM EDT Office of Care Management/Clinical Cvicu Nurse (CRC)/Discharge Planning Note CRC Sri Braxton RN (pager [phone]) Patient: Dinesh Peña : 1940 (74 y.o.) Home: [place] [address]* LOS: 3 days Care reviewed with Key Winkler APRN. Reviewed record and interviewed patient. Reviewed CRC role and services accepted. ?? Anticipated barriers to discharge: Patient has tentative bed offer from [facility] ([place], [place]) for Tuesday 06/27, dependent on H/H stability. Key Winkler APRN will order follow up H/H for Saturday AM draw. Transfer packet is with chart including demographics/insurance information. Family is staying in the area and are available to provide transport to [facility] on Tuesday 06/27. ?? Identified patient/family [...] REMOVAL performed by Petar Arriola MD at [facility] OR ??? Left 06/23/2014 MODIFIER PROSTALAC DEPUY performed by Petar Arriola MD at [facility] OR Social History: Patient lives [...] cart (~15') and back to bed (~10'), zvmh-zt-vymh gait pattern and cues for 50% wt and she demonstrated compliance (look @ my hands, their red from leaning on them so hard). ?? She wanted to return to bed for a rest after walk. Able to back up with cues to reminder her to supervisor opening and picking feet turning and she demonstrated understanding (reminder of precautions during activity). ?? She practiced using leg visor installer w/ L hand to assist L LE [...] to supine transfers independently using the leg visor installer. 4. Pt. to perform sit to stand/stand [...] minutes Total timed interventions: 35 minutes TRIXIE Champagne PT 06/25/2014 Pager: [phone] Physical Therapy Rehabilitation Department Patient seen and note written in conjunction with Su Mario, SPT. KEYUR CHAMPAGNE PT Pager#[phone] Philly Matias RN - 06/25/2014 3:20 PM EDT Met with pt and family this afternoon and we discussed that the insurance has been evaluated and it is clarified that [employer] is a medicare supplemental insurance and will not fully IV abx at home. Pt and are agreeable to continue with pursuit for rehab stay at [facility] or [facility] and . We discussed that once pt is more mobile her preference will be to d/c to home after rehab and continue abx course as an out pt. They live very near [facility] and pt's PCP is located here as [...] the assistance of daily visit from a or assistant. Pt reports that she is eating [...] TID, each provides 250kcal and 14g protein executive chef assistant will continue to see pt daily [...] 06/24/2014 5:43 PM EDT I agree with [facility]'s nursing tech Jane Stahl, see doc flow for full assessment. 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 Pt has medicare and [employer] insurance. Met with pt and she is [...] eval and has no preference for vendor. [place], [place] or Services for home care thru: [facility] PHONE: [phone] FAX: [phone] Will initiate referral to evaluate coverage and continue to follow. Will f/u with family as well. Anticipate pt would consider [facility] H and R IF rehab recommended By [...] bearing. Enhanced hip precautions ?? Wound closure: Azusa need removal in 14 days ?? Dressing [...] oriented to room, call meza, IS and SALVAGE SUPERVISOR. Patient reports pain to be 0/10. Patient [...] to the planned procedure. Hand Hygiene: The targeting acquisition officer did perform hand hygiene prior to line insertion. Catheter type: PICC Lot number: [id number] Procedure Technique: Skin was prepped with chlorhexidine. [...] via PICC after insertion. Sterile dressing applied: [id number]. Findings: The patient did tolerate the procedure well. No Complications. Procedure Comments: Two unsuccessful attempts on right arm , one in right basilic and one in right brachial. In both cases blood return obtained, but wire would not advance past about 6cm. Marko Bunch, ALINA 06/26/2014 documented in this encounter Miscellaneous Notes [...] EVALUATION: Goal: Individualization and Mutuality 06/24/14 1533 06/25/14 0416 Individualization Individualize the [...] Health Knowledge, Opportunity for Enhanced (Adult, NICU, Ogden, Obstetrics, Pediatric) Goal: Identify Signs and Symptoms [...] FORWARD: Pain control, mobilize, possible d/c to [place] tomorrow. INDIVIDUALIZED FALL PREVENTION: Assistance: 1-assist with walker, Partial WB 50% LLE Supervision: Set-up/Hands-on with ADLs Surveillance: Masimo, hourly rounding CPG GOAL OUTCOME EVALUATION: Goal: Individualization and Mutuality Outcome: Ongoing (Interventions Implemented as Appropriate) 06/24/14 1533 06/25/14 041 Individualization Individualize the Plan of Care: -- [...] Outcome: Ongoing (Interventions Implemented as Appropriate) 06/25/14 041 Discharge Needs Assessment Concerns to be Addressed [...] bedside RN aware. Plan of Care - Kate, Orpha K, RN - 06/26/2014 6:49 AM EDT Problem: [...] assist. PLAN MOVING FORWARD: Pain control, mobilzie, desi planning INDIVIDUALIZED FALL PREVENTION: Assistance: OOB with walker and standby assist Supervision: One assist with ADLs Surveillance: Aleks, hourly rounding. CPG GOAL OUTCOME EVALUATION: Goal: Individualization and Mutuality Outcome: Ongoing (Interventions Implemented as Appropriate) 06/24/14 1533 06/25/14 7136 Individualization Individualize the Plan of Care: -- [...] Ongoing (Interventions Implemented as Appropriate) 06/25/14 1149 Safety Interventions Isolation Precautions standard [...] Health Knowledge, Opportunity for Enhanced (Adult, NICU, Ogden, Obstetrics, Pediatric) Goal: Identify Signs and Symptoms and Related Risk Factors Signs and symptoms and related risk factors are identified upon initiation of Human Response Clinical Practice Guideline (CPG) Outcome: Ongoing (Interventions Implemented as Appropriate) Plan of Care - Marina Varlea RN - 06/25/2014 3:57 PM EDT Problem: Health Knowledge, Opportunity for Enhanced (Adult, NICU, Ogden, Obstetrics, Pediatric) Goal: Knowledgeable about Health Subject/Topic Patient will demonstrate the desired outcomes. Outcome: Outcome (s) achieved Date Met: 06/25/14 06/25/14 1554 Health Knowledge, Opportunity for Enhanced (Adult, NICU, Ogden, Obstetrics, Pediatric) Knowledgeable about Health Subject/Topic achieves outcome Peripherally Inserted Central Catheter (PICC) Teaching Sheet Peripherally inserted central catheters (xrpi-hc-gzhi) (PICC) are used when you need IV [...] midline catheter? PICC lines are used for intermediate accountant treatments. PICC lines may be used for [...] can be set up via the nurse Wind Energy Project Manager to help you. What are possible [...] Efficacy, Safety, Use, and Administration of [employer], [employer] 2006 Consult Note - [place] Thrasher [...] diabetes management and to provide a reviewof intermediate accountant diabetes care. Diabetes History: Dinesh Peña has [...] senna-docusate 2 tablet Oral BID ??? multivitamin Ccry-Hp-RW-Min 1 tablet Oral Daily ??? acetaminophen 1,000 [...] all extremities. Grossly non-focal Labs: Recent Labs 06/25/14 0338 06/24/14 0525 WBC 10.7* 9.8 HGB 6.2* 7.3* [...] MAGNESIUM -- -- 0.74 Recent Labs 06/24/14 1156 PROT 5.9* ALBUMIN 2.7* AST 14 ALT [...] outcome Plan of Care - [place] - 06/25/2014 4:50 AM EDT Problem: General Plan of Care Goal: Plan of Care Review 06/25/14 0416 Plan of Care Review Plan of Care [...] Supervision: Frequent, family at bedside Surveillance: Purposeful roundinglaura CPG GOAL OUTCOME EVALUATION: Goal: Individualization and Mutuality 06/25/14 0416 Individualization Individualize the Plan of Care: pain [...] Patient will demonstrate the desired outcomes. 06/25/14 0416 Skin Integrity Impairment, Risk/Actual (Adult, Obstetrics) Skin Integrity/Wound Healing making progress toward outcome Plan of Care - Jane Stahl - 06/24/2014 7:06 PM EDT Problem: General Plan of Care Goal: Plan of Care Review 06/24/14 0381 Plan of Care Review Plan of Care Outcome Status ongoing (interventions implemented as appropriate) Progress progress toward functional goals as expected Coping/Psychosocial Response Interventions Plan of Care Reviewed with patient;spouse OUTCOME EVALUATION NOTE: OUTCOME SUMMARY: SALVAGE SUPERVISOR d/c today, patient has been in very [...] walker Supervision: Independent once set up Surveillance: laura Dooley CPG OUTCOME EVALUATION: Goal: Individualization and Mutuality 06/24/14 1533 Mutuality/Individual Preferences What anxieties, fears or concerns do you have about your health or care? none What questions do you have about your health or care? none What information would help us give you more personalized care? none Goal: Fall Prevention-Safe Patient Handling 06/24/14 1224 06/24/141855 Safety Interventions Safety Precautions/Fall Reduction assistive device;fall [...] Goal: Discharge Needs Assessment 06/24/14 1225 06/24/14 1228 06/24/141855 Discharge Needs Assessment Concerns to be Addressed [...] progress toward outcome Initial Assessments - Ibeth Castelan, ELIZABETH - 06/24/2014 3:44 PM EDT Occupational Therapy [...] REMOVAL performed by Petar Arriola MD at [facility] ??? Left 06/23/2014 MODIFIER PROSTALAC DEPUY performed by Petar Arriola MD at [facility] Social History: Patient lives [...] minutes Total timed interventions: 0 minutes Pager: [phone] Ibeth Castelan OT 06/24/2014 Occupational Therapy Rehabilitation [...] and for consideration of possible explantation. At [facility] patient was evaluated by orthopedic team s/p [...] was draining recently closed was referred to [facility] orthopedic clinic for evaluation of possible PJI as inflammatory markers were elevated s/p eval by ortho team was taken to [facility] 3[facility]25[facility]15 s/p explant and antibiotic spacer placement,intro operatively [...] will continue to follow the patient,please page [phone] with questions Above recommendations were communicated with the primary team. x Recommendations discussed with primary team. Consult service will continue to follow patient. Recommendations discussed with primary team. ID will sign off. Please page [phone] if further consultation required. Case discussed with ID attending Dr.Andrews Tian Hankins MD, Fellow, Infectious Disease Pager [phone] ID Staff: I saw the patient with [...] y.o. female admitted on 06/23/[address] Petar Arriola MD for s/pleft hip explant and antibiotic [...] REMOVAL performed by Petar Arriola MD at [facility] ??? Left 06/23/2014 MODIFIER PROSTALAC DEPUY performed by Petar Arriola MD at [facility] Social History: Patient lives [...] Supine: min A x 2 with leg visor installer: one person assisting trunk down to bed, [...] to supine transfers independently using the leg visor installer. 4. Pt. to perform sit to stand/stand [...] interventions: 45 minutes Su Montero 06/24/2014 Pager: [phone] Physical Therapy Rehabilitation Department Patient seen and note written in conjunction with Su Mario, SPT. KEYUR CHAMPAGNE PT Pager#[phone] Plan of Care - Swati Quarles RN - 06/23/2014 11:56 PM EDT Problem: General Plan of Care Goal: Plan of Care Review OUTCOME EVALUATION NOTE: OUTCOME SUMMARY: Doing well post -op: pain well controlled with SALVAGE SUPERVISOR dilaudid. Wound vac in place and functioning. Abductor pillow in situ. PLAN MOVING FORWARD: Pain control; antibiotics. Mobilization INDIVIDUALIZED FALL PREVENTION: Assistance: Turns with assist. Supervision: Foir transfers and ADL's Surveillance: Masimo, hourly rounding CPG GOAL OUTCOME EVALUATION: Goal: Fall Prevention-Safe Patient Handling 06/23/14 0839 06/23/14 0563 Safety Interventions Safety Precautions/Fall Reduction assistive device;lighting [...] (Abduction pillow in place) Goal: Infection Control 06/23/149 06/23/14 3432 Safety Interventions Isolation Precautions standard precautions maintained -- Infection Prevention -- bronchial hygiene promoted;environmental surveillance;hydration promoted;rest/sleep promoted Op Note - Petar Arriola MD - 06/23/2014 7:[address] [facility] Operative Note Patient Name: Dinesh Peña : [id number] MR#: [id number] Case Date: 06/23/2014 Surgeon: Surgeon(s) and Role: [...] did undergo an eye procedure and her telephone appointment clerk did not want her to delay any [...] stem using flexible osteotomes. We used a colette to colette out the greater trochanters so that the [...] a size 13 mm reamer. We used [place] reverse curette and then cleared the femur [...] and scuffed up the back using a Inola and created several dimples. We elected to [...] Implant Name Type Inv. Item Serial No. Sealer Operator Lot No. LRB No. Used Action CEMENT,BNE,SMARTSET MV,EO,40GM ([id number]) - [id number] IMPLANTS [id number] Depuy Door Assembler - 3527 [id number] Left 2 Implanted INSER,ALTRX,NT,[id number] ([id number]) (AUTOREQ) - [id number] IMPLANTS 52885 Depuy Door Assembler - 3527 [id number] Left 1 Implanted STEM,PROSTALAC,HI-OFST,1,105MM ([id number]) (AUTOREQ) - [id number] IMPLANTS 98485 Depuy Door Assembler - 3527 [id number] Left 1 Implanted HEAD,ATC,MTL,+1.5MM,36MM ([id number]) (AUTOREQ) - [id number] IMPLANTS 6554 Depuy Door Assembler - 3527 [id number] Left 1 Implanted CEMENT,BNE,CMW 2,HLF DOSE,20GM ([id number]) - [id number] IMPLANTS 5128 Depuy Door Assembler - 3527 [id number] Left 2 Implanted Brief Op Note - Petar Arriola MD - 06/23/2014 4:00 PM EDT Brief Operative Note Patient Name: Dinesh Peña : [id number] MR#: [id number] Case Date: 06/23/2014 Surgeon: Surgeon(s) and Role: [...] bearing. Enhanced hip precautions ?? Wound closure: Azusa need removal in 14 days ?? Dressing [...] Implant Name Type Inv. Item Serial No. Sealer Operator Lot No. LRB No. Used Action CEMENT,BNE,SMARTSET MV,EO,40GM ([id number]) - [id number] IMPLANTS [id number] Depuy Door Assembler - 3527 [id number] Left 2 Implanted INSER,ALTRX,NT,[id number] ([id number]) (AUTOREQ) - [id number] IMPLANTS 60248 Depuy Door Assembler - 3527 [id number] Left 1 Implanted STEM,PROSTALAC,HI-OFST,1,105MM ([id number]) (AUTOREQ) - [id number] IMPLANTS [id number] Depuy Door Assembler - 3527 [id number] Left 1 Implanted HEAD,ATC,MTL,+1.5MM,36MM ([id number]) (AUTOREQ) - [id number] IMPLANTS 6554 Depuy Door Assembler - 3527 [id number] Left 1 Implanted CEMENT,BNE,CMW 2,HLF DOSE,20GM ([id number]) - [id number] IMPLANTS 5128 Depuy Door Assembler - 3527 [id number] Left 2 Implanted documented in this encounter [...] CARE TEST ORDERABLE S Performing Organization Address City/[facility]/ZIP Code Phon e Number [address] CERNER MILLENNIUM POCT Glucose [...] CARE TEST ORDERABLE S Performing Organization Address City/[facility]/ZIP [facility] [place] Number [address] CERNER MILLENNIUM POCT Glucose [...] Organization Address City/State/ZIP [place] [address] CERNER MILLENNIUM (ABNORMAL) Differential, Automated (06/27/2014 3:55 AM EDT) [facility] gist Method Time Signature Neutrophils % 71.3 [...] Address City/State/ZIP [place] [address] CERNER MILLENNIUM (ABNORMAL) Hemogram [...] Address City/State/ZIP [place] [address] CERNER MILLENNIUM (ABNORMAL) Prothrombin Time (06/27/2014 3:55 AM EDT) P athologist Signature PT 23.5 (H) 12.5 - 15.5 CERNER sec MILLENNIUM Comment: Transfusion Committee Guidelines: INR less than 2.0, PTT less than OR equal to 43.5 seconds, or Fibrinogen greater t pompa or equal to 100 mg/dl indicate adequate procoagulant activity for hemos tasis in patients without underlying bleeding disorders. INR 1.9 (H) 0.9 - 1.1 CERNER MILLENNIUM Specimen Anatomical Collection Method Collection Time Receive d Time (Source) Location / / Volume Laterality Blood specimen 06/27/2014 3:55 AM 015 4:15 (specimen) EDT AM EDT Resulting Agency Comment Spec In Lab Petar Arriola MD HEMATOLOGY ORDERABLES Performing Organization Address City/State/ZIP [place] [address] CERNER MILLENNIUM (ABNORMAL) BMP w/fasting Glucose (06/27/2014 3:55 AM EDT) athologist Signature Glucose 127 (H) 65 - 99 CERNER Fasting mg/dL MILLENNIUM Comment: ?Fasting* Glucose Interpretive C riteria Normal [...] of Diabetes Mellitus, Position Statement from the [employer]. ??Diabete s Care, Volume 33, Supplement 1, Apr 2009 BUN 14 8 - 18 mg/dL CERNER MILLENNIUM Creatinine 0.76 0.70 - 1.20 mg/dL CERNER MILL ENNIUM Comment: Please note that the pediatric reference intervals supplied above were not validated at [facility]. Results from pediatri c patients [...] the following links into your internet browser. [email or web address] Specimen Anatomical Collection Method Collection Time Receive d Time (Source) Location / / Volume Laterality Blood specimen 06/27/2014 3:55 AM 015 4:15 (specimen) EDT AM EDT Resulting Agency Comment Spec In Lab Petar Arriola MD CHEMISTRY ORDERABLES Performing Organization Address City/[facility] Code Phon e Number [address] CERNER MILLENNIUM POCT Glucose [...] CARE TEST ORDERABLE S Performing Organization Address City/[facility] [place] [address] CERNER MILLENNIUM POCT Glucose [...] Organization Address City/State/ZIP Code Phon e Number [address] CERNER MILLENNIUM POCT Glucose [...] Organization Address City/State/ZIP Code Phon e Number [address] CERNER MILLENNIUM POCT Glucose (06/26/2014 11:50 AM EDT) athologist Signature POC Glucose 146 60 - 199 CERNER mg/dL MILLENNIUM Comment: [...] Organization Address City/State/[place] [address] CERN[address] PICC Line: Contact Vascular Access Page [phone] (06/26/2014 11:38 AM EDT) Narrative Marko Bunch RN - 06/26/2014 11:38 A M EDT Marko Bunch RN ? 06/26/2014 11:38 AM PICC/Midline Insertion [...] the planned procedu re. Hand Hygiene: The targeting acquisition officer did perform hand hygiene pr ior to line insertion. Catheter type: PICC Lot number: [id number] Procedure Technique: Skin was prepped with chlorhexidine. [...] PICC after insertion. Sterile dressi ng applied: [id number]. Findings: The patient did tolerate the procedure [...] ORDERABLES POCT Glucose (06/26/2014 6:49 AM EDT) P athologist Signature POC Glucose 127 60 - 199 CERNER mg/dL [facility] Comment: Supplemental ranges: <140 mg/dL before meals <180 mg/dL all other times of the day Specimen Anatomical Collection Method Collection Time Receive d Time (Source) Location / / Volume Laterality Blood specimen 06/26/2014 6:49 AM 015 6:49 (specimen) EDT AM EDT Petar Arriola MD POINT OF CARE TEST ORDERABLE S Performing Organization Address City/State/ZIP Code Phon e Number [place] [id number] CERNER MILLENNIUM POCT Glucose (06/26/2014 4:11 AM EDT) P athologist Signature POC Glucose 141 60 - [...] Address City/State/ZIP Code Phon e Number [place] MANJARREZ [address] CERNER MILLENNIUM (ABNORMAL) Differential, Automated (06/26/2014 3:58 AM EDT) Patholo gist Method Time Signature Neutrophils % 69.1 [...] Arriola MD HEMATOLOGY ORDERABLES Performing Organization Address City/[facility]/ZIP [facility] [place] [address] CERNER MILLENNIUM (ABNORMAL) Hemogram [...] 31.4 (L) 32.0 - CERNER 36.5 gm/dL MILLENNIUM Platelets 302 145 - 370 CERNER x10(3)/mcL [...] Arriola MD HEMATOLOGY ORDERABLES Performing Organization Address City/[facility]/[place] [address] CERNER MILLENNIUM (ABNORMAL) Prothrombin Time (06/26/2014 3:58 AM EDT) athologist Signature PT 24.2 (H) 12.5 - 15.5 CERNER sec MILLENNIUM Comment: Transfusion Committee Guidelines: INR less than 2.0, PTT less than OR equal to 43.5 seconds, or Fibrinogen greater t [place] or equal to 100 mg/dl indicate adequate procoagulant activity for hemos tasis in patients without underlying bleeding disorders. INR 2.0 (H) 0.9 - 1.1 CERNER MILLENNIUM Specimen Anatomical Collection Method Collection Time Receive d Time (Source) Location / / Volume Laterality Blood specimen 06/26/2014 3:58 AM 015 4:14 (specimen) EDT AM EDT Resulting Agency Comment Spec In Lab Petar Arriola MD HEMATOLOGY ORDERABLES Performing Organization Address City/State/ZIP [place] [address] CERNER MILLENNIUM (ABNORMAL) Basic Metabolic Panel (non-fasting) (06/26/2014 3:58 AM EDT) athologist Signature Glucose Lvl 122 60 - 199 CERNER mg/dL MILLENNIUM Comment: Diabetes: >=200 mg/dL plus symp toms BUN 14 8 - 18 mg/dL CERNER MILLENNIUM Creatinine 0.77 0.70 - 1.20 mg/dL CERNER MILL ENNIUM Comment: Please note that the pediatric reference intervals supplied above were not validated at [facility]. Results from pediatri c patients [...] Calcium 8.4 (L) 8.5 - 10.5 mg/dL BEST MORENOUM Estimated GFR >60 >=60 BEST SALMERON M Comment: This estimated GFR (eGFR) value [...] the following links into your internet browser. [email or web address] Specimen Anatomical Collection Method Collection Time Receive d Time (Source) Location / / Volume Laterality Blood specimen 06/26/2014 3:58 AM 015 4:14 (specimen) EDT AM EDT Resulting Agency Comment Spec In Lab Petar Arriola MD CHEMISTRY ORDERABLES Performing Organization Address City/[facility]/ZIP Code Phon e Number [address] CERNER MILLENNIUM POCT Glucose [...] CARE TEST ORDERABLE S Performing Organization Address City/[facility] Phon e Number [address] CERNER MILLENNIUM POCT Glucose [...] Organization Address City/State/[place] [address] CERNER MILLENNIUM POCT Glucose [...] CARE TEST ORDERABLE S Performing Organization Address City/[facility]/[place] [address] CERNER MILLENNIUM (ABNORMAL) Hemogram (06/25/2014 3:01 PM EDT) athologist Signature WBC 10.9 (H) 4.0 - [...] Platelets 326 145 - 370 x10(3)/mcL CERNER ND LLENNIUM RDWSD 51.8 (H) 35.0 - 46.0 fL CERNER MILLENNI UM RDWCV 17.0 (H) 10.9 - 14.4 % BEST Constantino MPV 8.9 (L) 9.0 - 12.0 fL BEST Constantino Specimen Anatomical Collection Method Collection Time Receive d Time (Source) Location / / Volume Laterality Blood specimen 06/25/2014 3:01 PM 015 3:18 (specimen) EDT PM EDT Resulting Agency Comment Spec In Lab Petar Arriola MD HEMATOLOGY ORDERABLES Performing Organization Address City/[facility] Phon e Number [address] CERNER MILLENNIUM Transfuse RBC (06/25/2014 1:40 PM EDT) Petar Arriola MD NURSING TREATMENT ORDERABLES - BLOOD ADMIN Transfuse RBC (06/25/2014 1:40 PM EDT) Petar Arriola MD NURSING TREATMENT ORDERABLES - BLOOD ADMIN POCT Glucose (06/25/2014 11:44 AM EDT) athologist Signature POC Glucose 144 60 - [...] CARE TEST ORDERABLE S Performing Organization Address City/[facility] Phon e Number [address] CERNER MILLENNIUM Transfuse RBC (06/25/2014 9:37 AM EDT) Petar Arriola MD NURSING TREATMENT ORDERABLES - BLOOD ADMIN POCT Glucose (06/25/2014 7:05 AM EDT) P athologist Signature POC Glucose 137 60 - 199 CERNER mg/dL MILLENNIUM Comment: Supplemental ranges: <140 mg/dL before meals <180 mg/dL all other times of the day Specimen Anatomical Collection Method Collection Time Receive d Time (Source) Location / / Volume Laterality Blood specimen 06/25/2014 7:05 AM 015 7:05 (specimen) EDT AM EDT Petar Arriola MD POINT OF CARE TEST ORDERABLE S Performing Organization Address City/[facility]/[place] [address] CERNER MILLENNIUM Prepare RBC (06/25/2014 5:55 AM EDT) P athologist Signature Dispensed? Yes [facility] Specimen Anatomical Collection Method Collection Time Receive d Time (Source) Location / / Volume Laterality Blood specimen 06/25/2014 5:55 AM 015 5:51 (specimen) EDT AM EDT Resulting Agency Comment Spec In Lab Petar Arriola MD BLOOD BANK ORDERABLES Performing Organization Address City/[facility]/[place] [address] CERNER MILLENNIUM Prepare RBC (06/25/2014 5:52 AM EDT) P athologist Signature Dispensed? Yes CERNER [facility] Specimen Anatomical Collection Method Collection Time Receive d Time (Source) Location / / Volume Laterality Blood specimen No Charge / 06/25/2014 5:52 AM 015 5:52 (specimen) Unknown EDT AM EDT Resulting Agency Comment Spec In Lab Ranulfo Canchola MD BLOOD BANK ORDERABLES Performing Organization Address City/[facility]/[place] [address] CERNER MILLENNIUM POCT Glucose (06/25/2014 3:38 AM EDT) P athologist Signature POC Glucose 132 60 - 199 CERNER mg/dL [facility] Comment: Supplemental ranges: <140 mg/dL before meals <180 mg/dL all other times of the day Specimen Anatomical Collection Method Collection Time Receive d Time (Source) Location / / Volume Laterality Blood specimen 06/25/2014 3:38 AM 015 3:38 (specimen) EDT AM EDT Petar Arriola MD POINT OF CARE TEST ORDERABLE S Performing Organization Address City/[facility]/ZIP Code Phon e Number [address] CERNER MILLENNIUM (ABNORMAL) Differential, Automated (06/25/2014 3:38 AM EDT) [facility] Method Time Signature Neutrophils % 67.1 % [...] Arriola MD HEMATOLOGY ORDERABLES Performing Organization Address City/[facility]/[place] [address] CERNER MILLENNIUM (ABNORMAL) Hemogram [...] Organization Address City/State/[place] [address] CERNER MILLENNIUM (ABNORMAL) Prothrombin Time (06/25/2014 3:38 AM EDT) P athologist Signature PT 21.7 (H) 12.5 - 15.5 CERNER sec MILLENNIUM Comment: DH Transfusion Committee [...] Organization Address City/State/ZIP [place] [address] CERNER MILLENNIUM (ABNORMAL) Basic Metabolic Panel (non-fasting) (06/25/2014 3:38 AM EDT) athologist Signature Glucose Lvl 121 60 - 199 CERNER mg/dL MILLENNIUM Comment: Diabetes: >=200 mg/dL plus symp toms BUN 13 8 - 18 mg/dL CERNER MILLENNIUM Creatinine 0.94 0.70 - 1.20 mg/dL CERNER MILL ENNIUM Comment: Please note that the pediatric reference intervals supplied above were not validated at [facility]. Results from pediatri c patients [...] the following links into your internet browser. [email or web address] Specimen Anatomical Collection Method Collection Time Receive d Time (Source) Location / / Volume Laterality Blood specimen 06/25/2014 3:38 AM 015 4:09 (specimen) EDT AM EDT Resulting Agency Comment Spec In Lab Petar Arriola MD CHEMISTRY ORDERABLES Performing Organization Address City/State/ZIP Code Phon e Number [address] CERNER MILLENNIUM POCT Glucose (06/25/2014 12:06 AM EDT) athologist Signature POC Glucose 135 60 - [...] CARE TEST ORDERABLE S Performing Organization Address City/[facility]/ZIP Code Phon e Number [address] CERNER MILLENNIUM POCT Glucose [...] CARE TEST ORDERABLE S Performing Organization Address City/[facility]/ZIP Code Phon e Number [address] CERNER MILLENNIUM (ABNORMAL) POCT Glucose (06/24/2014 6:50 PM EDT) P athologist Signature POC Glucose 247 (H) 60 - 199 CERNER mg/dL [facility] Comment: Supplemental ranges: <140 mg/dL before meals <180 mg/dL all other times of the day Specimen Anatomical Collection Method Collection Time Receive d Time (Source) Location / / Volume Laterality Blood specimen 06/24/2014 6:50 PM 015 6:50 (specimen) EDT PM EDT Petar Arriola MD POINT OF CARE TEST ORDERABLE S Performing Organization Address [facility] Phon e Number [address] CERNER MILLENNIUM POCT Glucose (06/24/2014 4:13 PM EDT) athologist Signature POC Glucose 136 60 - 199 CERNER mg/dL [facility] Comment: Supplemental ranges: <140 mg/dL before meals <180 mg/dL all other times of the day Specimen Anatomical Collection Method Collection Time Receive d Time (Source) Location / / Volume Laterality Blood specimen 06/24/2014 4:13 PM 015 4:13 (specimen) EDT PM EDT Petar Arriola MD POINT OF CARE TEST ORDERABLE S Performing Organization Address City/[facility] Phon e Number [address] CERNER MILLENNIUM Blood culture (06/24/2014 12:09 PM EDT) [facility] gist Method Time Signature Blood Culture CERNER ? Patient Name: DINESH PEÑA ?Ordered By: PETAR ARRIOLA MILLMINDYIUM ? MR#: [id number] ?LOC: ??3WST ? /Sex: ??1940 (74 years), [...] Organization Address City/State/[place] [address] [place] PERKINS Blood culture (06/24/2014 11:56 AM EDT) [facility] Method Time Signature Blood Culture CERTARYN ? Patient Name: DINESH PEÑA ?Ordered By: PETAR ARRIOLA ? MR#: [id number] ?LOC: ??3WST ? /Sex: ??1940 (74 years), [...] Organization Address City/State/ZIP [place] [address] CERNER MILLENNIUM (ABNORMAL) Prealbumin (06/24/2014 11:56 AM EDT) athologist Signature Prealbumin 7 (L) 20 - 40 CERNER mg/dL MILLENNIUM Comment: Prealbumin levels are generally lower in the pediatric population; adult concentrations are usually attained near puberty. Specimen Anatomical Collection Method Collection Time Receive d Time (Source) Location / / Volume Laterality Blood specimen 06/24/2014 11:56 5 (specimen) AM EDT 12:34 PM EDT Resulting Agency Comment Spec In Lab Petar Arriola MD CHEMISTRY ORDERABLES Performing Organization Address City/State/ZIP Code Phon e Kizzy SMITH [place] [id number] CERNER MILLENNIUM (ABNORMAL) CMP w/fasting Glucose (06/24/2014 11:56 AM EDT) P athologist Signature Glucose 131 (H) 65 - 99 CERNER Fasting mg/dL MILLENNIUM Comment: ?Fasting* Glucose Interpretive C riteria Normal [...] of Diabetes Mellitus, Position Statement from the [place] [employer]. ??Diabete s Care, Volume 33, Supplement 1, Apr 2009 BUN 10 8 - 18 mg/dL CERNER MILLENNIUM Creatinine 0.70 0.70 - 1.20 mg/dL CERNER MILL ENNIUM Comment: Please note that the pediatric reference intervals supplied above were not validated at [facility]. Results from pediatri c patients [...] the following links into your internet browser. [email or web address] Specimen Anatomical Collection Method Collection Time Receive d Time (Source) Location / / Volume Laterality Blood specimen 06/24/2014 11:56 5 (specimen) AM EDT 12:34 PM EDT Resulting Agency Comment Spec In Lab Petar Arriola MD CHEMISTRY ORDERABLES Performing Organization Address City/State/ZIP [place] [address] CERNER MILLENNIUM POCT Glucose (06/24/2014 11:39 AM EDT) athologist Signature POC Glucose 150 60 - 199 CERNER mg/dL MILLENNIUM Comment: Supplemental ranges: <140 mg/dL before meals <180 mg/dL all other times of the day Specimen Anatomical Collection Method Collection Time Receive d Time (Source) Location / / Volume Laterality Blood specimen 06/24/2014 11:39 5 (specimen) AM EDT 11:39 AM EDT Petar Arriola MD POINT OF CARE TEST ORDERABLE S Performing Organization Address City/[facility]/ZIP Code Phon e Number [address] CERNER MILLENNIUM POCT Glucose (06/24/2014 8:42 AM EDT) athologist Signature POC Glucose 148 60 - 199 CERNER mg/dL MILLENNIUM Comment: Supplemental ranges: <140 mg/dL before meals <180 mg/dL all other times of the day Specimen Anatomical Collection Method Collection Time Receive d Time (Source) Location / / Volume Laterality Blood specimen 06/24/2014 8:42 AM 015 8:42 (specimen) EDT AM EDT Petar Arriola MD POINT OF CARE TEST ORDERABLE S Performing Organization Address City/[facility]/ZIP Code Phon e Number [address] CERNER MILLENNIUM Magnesium (06/24/2014 [...] Arriola MD CHEMISTRY ORDERABLES Performing Organization Address City/[facility]/ZIP Code Phon e Number [address] CERNER MILLENNIUM Nucleated Red Blood Cells (06/24/2014 5:25 AM EDT) athologist Signature nRBC % Auto 0.0 % [...] Address City/State/ZIP Code Phon e Number [place] [address] CERNER MILLENNIUM (ABNORMAL) Differential, Automated (06/24/2014 5:25 AM EDT) [facility] gist Method Time Signature Neutrophils % 70.9 [...] Arriola MD HEMATOLOGY ORDERABLES Performing Organization Address City/[facility]/ZIP Code Phon e Number [place] [address] CERNER MILLENNIUM (ABNORMAL) Hemogram (06/24/2014 [...] Organization Address City/State/ZIP Code Phon e Number [place] [phone] CERNER MILLENNIUM (ABNORMAL) Prothrombin Time (06/24/2014 5:25 AM EDT) P athologist Signature PT 15.9 (H) 12.5 - [...] Performing Organization Address City/State/ZIP Code Kade SMITH [place] [id number] CERNER MILLENNIUM (ABNORMAL) Basic Metabolic Panel (non-fasting) (06/24/2014 5:25 AM EDT) athologist Signature Glucose Lvl 118 60 - 199 CERNER mg/dL MILLENNIUM Comment: Diabetes: >=200 mg/dL plus symp toms BUN 11 8 - 18 mg/dL CERNER MILLENNIUM Creatinine 0.61 (L) 0.70 - 1.20 mg/dL CERNER MILL ENNIUM Comment: Please note that the pediatric reference intervals supplied above were not validated at [facility]. Results from pediatri c patients [...] the following links into your internet browser. [email or web address] Specimen Anatomical Collection Method Collection Time Receive d Time (Source) Location / / Volume Laterality Blood specimen 06/24/2014 5:25 AM 015 5:32 (specimen) EDT AM EDT Resulting Agency Comment Spec In Lab Petar Arriola MD CHEMISTRY ORDERABLES Performing Organization Address City/State/ZIP Code Phon e Number [place] [id number] opinions.h XR pelvis 1 or 2 views (06/23/2014 [...] ORDERABLES Anaerobic Culture (06/23/2014 4:37 PM EDT) [facility] Method Time Signature Anaerobic CERNER Culture ? Patient Name: DINESH PEÑA ?Ordered By: PETAR ARRIOLA [facility] ? MR#: [id number] ?LOC: ??3WST ? /Sex: ??1940 (74 years), [...] ORDER TERESA Performing Organization Address City/State/ZIP Code [place] [address] CERNER MILLENNIUM Joint Culture (06/23/2014 4:36 PM EDT) Component Value Ref Test Analysis Performed At [facility] Range Method Time Signature Joint CERNER Culture ? Patient Name: DINESH PEÑA ?Ordered By: PETAR ARRIOLA ? MR#: [id number] ?LOC: ??3WST ? /Sex: ??1940 (74 years), [...] Performing Organization Address City/State/[place] [address] [facility] [place] Anaerobic Culture (06/23/2014 2:45 PM EDT) [facility] Method Time Signature Anaerobic CERNER Culture ? Patient Name: DINESH PEÑA ?Ordered By: PETAR ARRIOLA ? MR#: [id number] ?LOC: ??3WST ? /Sex: ??1940 (74 years), [...] Organization Address City/State/[place] [address] [place] [place] Joint Culture (06/23/2014 2:45 PM EDT) Component Value Ref Test Analysis Performed At [facility] Range Method Time Signature Joint Culture [facility] ? Patient Name: DINESH PEÑA ?Ordered By: PETAR ARRIOLA ? MR#: [id number] ?LOC: ??3WST ? /Sex: ??1940 (74 years), [...] morphologies ? Patient: DINESH PEÑA ? MR#: [id number] ? SUSCEPTIBILITY RESULTS ? Staphylococcus aureus ? [...] ??NS=Non-susceptible ? Patient: DINESH PEÑA ? MR#: [id number] ? FOOTNOTES ? (1) ? Gentamicin is not appropriate for Alexander-therapy. ? (2) ? Penicillin resistant, Nafcillin susceptible [...] Organization Address City/State/[place] [address] [place] [place] Anaerobic Culture (06/23/2014 2:45 PM EDT) [facility] Method Time Signature Anaerobic OBDULIONER Culture ? Patient Name: DINESH PEÑA ?Ordered By: PETAR ARRIOLA ? MR#: [id number] ?LOC: ??3WST ? /Sex: ??1940 (74 years), [...] Organization Address City/State/[place] [address] [place] [place] Joint Culture (06/23/2014 2:45 PM EDT) Component Value Ref Test Analysis Performed At [facility] Range Method Time Signature Joint CERNER Culture ? Patient Name: DINESH PEÑA ?Ordered By: PETAR ARRIOLA ? MR#: [id number] ?LOC: ??3WST ? /Sex: ??1940 (74 years), [...] Organization Address City/State/ZIP [place] [address] OBDULIONER MILLMINDYIUM Anaerobic Culture (06/23/2014 1:46 PM EDT) [facility] Method Time Signature Anaerobic CERNER Culture ? Patient Name: DINESH PEÑA ?Ordered By: PETAR ARRIOLA MILLMINDYIUM ? MR#: [id number] ?LOC: ??3WST ? /Sex: ??1940 (74 years), [...] Organization Address City/State/[place] [address] CERNER MILLENNIUM Joint Culture (06/23/2014 1:46 PM EDT) Component Value Ref Test Analysis Performed At [facility] Method Time Signature Joint CERNER Culture ? Patient Name: DINESH PEÑA ?Ordered By: PETAR ARRIOLA [facility] ? MR#: [id number] ?LOC: ??3WST ? /Sex: ??1940 (74 years), [...] Organization Address City/State/ZIP Code Phon e Number [place] [phone] OBDULIOTARYN STONERMINDYIUM Anaerobic Culture (06/23/2014 1:41 PM EDT) [facility] Method Time Signature Anaerobic CERNER Culture ? Patient Name: DINESH PEÑA ?Ordered By: PETAR ARRIOLA ? MR#: [id number] ?LOC: ??3WST ? /Sex: ??1940 (74 years), [...] Organization Address City/State/[place] [address] BEST HERBIEMINDYIUM Joint Culture (06/23/2014 1:41 PM EDT) Component Value Ref Test Analysis Performed At [facility] Range Method Time Signature Joint CERNER Culture ? Patient Name: DINESH PEÑA ?Ordered By: PETAR ARRIOLA ? MR#: [id number] ?LOC: ??3WST ? /Sex: ??1940 (74 years), [...] Organization Address City/State/ZIP Code Phon e Number [address] CERNER MILLENNIUM POCT Glucose (06/23/2014 11:17 AM EDT) P athologist Signature POC Glucose 112 60 - 199 CERNER mg/dL MILLENNIUM Comment: [...] Organization Address City/State/[place] [address] CERNER MILLENNIUM documented in this encounter Visit Diagnoses Not on filedocumented in this encounter Administered Medications Inactive Administered Medications - up to 3 most recent administrations Medication Order MAR Action Action Date Dose Rate Site bacitracin injection Given 06/23/2014 3:05 50,000 Units 19- Surgical Site ONCE PRN, Starting on PM EDT Sat06/23/14 at 1332, Until Sat06/23/14 at 2037, Intra-Operative (Intra-Procedure), Routine Given 06/23/2014 3:00 PM EDT 50,000 Units 19- S urgical Site Given 06/23/2014 2:55 PM EDT 50,000 Units 19- S urgical Site mineral oil topical liquid Given 06/23/2014 3:15 PM EDT 25 mLs 19- S urgical Site ONCE PRN, Starting on Sat06/23/14 at 1515, Until Sat06/23/14 at 2037, Intra-Operative (Intra-Procedure), Routine tobramycin (NEBCIN) injection Given 06/23/2014 3:20 PM EDT 2.4 g 19- S urgical Site ONCE PRN, Starting on Sat06/23/14 at 1515, Until Sat06/23/14 at 2037, Intra-Operative (Intra-Procedure), Routine Given 06/23/2014 3:15 PM EDT 2.4 g 19- S urgical Site vancomycin (VANCOCIN) injection Given 06/23/2014 3:20 PM EDT 2 g 19- S urgical Site ONCE PRN, Starting on Sat06/23/14 at 1515, Until Sat06/23/14 at 2037, Intra-Operative (Intra-Procedure), Routine Given 06/23/2014 3:15 PM EDT 2 g 19- S urgical Site documented in this encounter Active and Recently [...] of access)1322 (Given - Provider: Jahaira West, ALINA)2224 (Given - Provider: Donovan Love RN) 0649 (Given - Provider: Donovan Love RN ) 2 g, Intravenous, EVERY 8 HOURS, First d ose on Sat06/25/14 at 0600, Until Discontinued, for 30 Minutes, Indication for (Active or Suspected): Bone/Joint esomeprazole (NexIUM) capsule 20 mg 09 (Given - Prov ider: Janel Pena RN) [...] (COMPLETED ) 854 (Given - Provider: Katy Rojas, ALINA) 1-10 mL, Subcutaneous, ONCE, 1 dose, 06/26/14 [...] insulin needed 1200 (Given - Provider: Zoe rBanch RN - Comment: BG 144)1633 (Not Given - Provider: Zoe Branch RN - Reason: Patient/family refused)2054 (Given - Provider: Donovan Love RN) 1630 [...] 0859 (Giv en - Provider: Patsy Shaikh, RN) 1 tablet, Oral, DAILY, First dose on Sat06/24/14 at 0900, Until Discontinued, Routine losartan (COZAAR) tablet 50 mg (CANCELED) 0900 (Not Gi abigail - Provider: Janel Pena RN - Reason: See comment - Comment: BP 93/39) 0847 (Given - Provider: Jahaira West, ALINA) 0859 (Given - Provider: Patsy Shaikh, ALINA) 50 mg, Oral, DAILY, First dose on Sat at 0900, Until Discontinued, Hold for SBP <100., Routine multivitamin Ivfz-Yo-GK-Min (THERAPEUTIC -M) 27-0.4 mg tablet 1 tablet (CANCELED) 09 (Given - Provider: Janel Pena RN) 0847 (Gi abigail - Provider: Jahaira West, ALINA) 0859 (Given - Provider: Patsy Shaikh, RN) 1 tablet, Oral, DAILY, First dose on Sat06/24/14 at 0900, Until Discontinued, Recovery (Recovery-Hospital Unit), Routine polyethylene glycol (MIRALAX) packet 17 g 0940 (Given - Provider: Janel Pena, ALINA)2101 (Given - Provider: Donovan Love, ALINA) 0847 (Given - Provider: Jahaira West, ALINA)2100 (Not Given - Provider: Donovan Love, ALINA - Reason: Contraindicated) 0900 (Not Given - Provider: Patsy Shaikh, RN - Reason: Patient/family refused) 17 g, Oral, 2 TIMES DAILY, First dose on Sat06/23/14 at 2200, Until Discontinued, Recovery (Recovery-Hospital Unit), Routine polyethylene glycol (MIRALAX) packet 17 g (COMPLETED) 1539 (Given - Provider: Miri Sandhu, ALINA) 17 g, Oral, ONCE, 1 dose, 06/26/14 at 1600, Routine senna-docusate (PERICOLACE) 8.6-50 mg per tablet 2 tab let (CANCELED) 0941 (Given - Provider: Janel Pena RN)2054 (Given - Provider: Donovan Love RN) 0847 (Given - Provider: Jahaira West, ALINA)2100 (Not Given - Provider: Donovan Love RN - Reason: Contraindicated) 0859 (Given - Provider: Patsy Shaikh, ALINA) 2 tablet, Oral, 2 TIMES DAILY, First dos e on Sat06/23/14 at 2200, Until Discontinued, Recovery (Recovery-Hospital Unit), Routine sodium chloride 0.9 % flush 5 mL (CANCELED) 0942 (Give n - Provider: Janel Pena RN)2055 (Given - Provider: Donovan Love RN) 0848 (Given - Provider: Jahaira West, [...] mg 085 0 (Given - Provider: Jahaira West, ALINA) 10 mg, Oral, 2 TIMES DAILY [...] unable to take PO, may g fabian [place] if ordered, Recovery (Recovery- Hospital Unit), Routine cyclobenzaprine (FLEXERIL) tablet 10 mg 1117 (Given - Provider: Patsy Shaikh RN - Comment: spasms are the 01/08. otherwise pain is controled) 10 mg, Oral, 3 TIMES DAILY PRN, Starting Sat06/27/14 at 0133, Until Sat06/27/14 at 1522, Muscle spasms, Routine cyclobenzaprine (FLEXERIL) tablet 5 mg (CANCELED) 2145 (Given - Provider: Donovan Love RN) 2055 (Given - Provider: Donovan Love RN) 5 mg, Oral, 3 TIMES DAILY PRN, Starting Sat06/25/14 at 0606, Until Sat06/27/14 at 0133, Muscle spasms, Routine diaZEPam (VALIUM) [...] oxyCODONE (ROXICODONE) immediate release tablet 10 mg 013 (Given - Provider: Santa Massey)115 (See Alternative - Provider: Zoe Branch RN)2053 (Given - Provider: Donovan Love RN) 0617 (Given - Provider: Donovan Love RN )1017 (Given - Provider: Jahaira West RN) 004 (Given - Provider: Donovan Love RN)1207 (Given - Provider: Patsy Shaikh RN - Comment: premedicating for discharge transfer) 10 mg, Oral, EVERY 4 HOURS PRN, Starting 06/23/14 at 2203, Until 06/27/14 at 1522, Pain, severe pain (7-10), May give an additional 5 mg in 30 minutes once if pain not relieved., Routine oxyCODONE (ROXICODONE) immediate release tablet 5 mg ( CANCELED) 013 (See Alternative - Provider: Santa Massey)1158 (Given - Provider: Zoe Branch RN)2053 (See Alternative - Provider: Donovan Love RN) 0617 (See Alternative - Provider: Donovan Love RN)1017 (See Alternative - Provider: Jahaira West RN) 0049 (See Alternative - Provider: Donovan Love RN)1207 (See Alternative - Provider: Patsy Shaikh RN) 5 mg, Oral, EVERY 4 HOURS PRN, Starting 06/23/14 at 2203, Until 06/27/14 at 1522, Pain, mild to moderate pain (1-6), May give an additional 5 mg in 30 minutes once if pain not relieved., Routine documented in this encounter Care Teams Compositor Apprentice Relationship Specialty Start Date End Date Steven Galan MD PCP - General 12/13/11 10/25/15 [address] [place] [address] documented as of this encounter
--- OUTSIDE RECORDS SUMMARY | 2021-10-09 21:51 | XMS_ITS | Encounter Summary ---
:1940 Author Organization [facility] Address [address] [place] [address] Care Team Providers Name Role Phone Nayla Caputo MD Primary Care Provider Reason for Visit Reason Onset Date Comments Discuss Surgery 03/30/2014 03.31.14 w/[facility] Encounter Details Date Type Department Care Team Description 03/30/2014 Telephone [facility] Kamari Mosher MD Discuss Surgery Ophthalmology - [address] (12.3 .14 w/RHM) [address] [place] [address] [address], [place] [address] (Wo rk) Social History Tobacco Use Types Packs/Day Years Used Date Never Smoker Alcohol Use Standard Drinks/Week Comments Not Asked 0 (1 standard drink = 0.6 oz pure alcoho l) Sex Assigned at Date Recorded Not on file documented as of this encounter Miscellaneous Notes Telephone Encounter - Aliya Contreras - 03/30/2014 1017 EST 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 Palma is allergic to asa; augmentin; and ntwffjm-pyt-gpq reductase inhibitors. Diabetes: Yes, but not on Problem list Is patient on blood-thinners? No Surgeon: [facility] Surgery Date: 03.31.14 Surgery Time: 07 Arrival Time: 0600 Booked on: 03.29.14 PRE-CERT REQUESTED ON: 03.29.14 Type of Surgery: Scleral buckle with cryo and intraocular gas left eye CPT: 12650 ICD-9: 361.00 Retinal detachment with retinal defect, unspecified Pre-op (PAT) interview on: 03/31/14 @ 0780 H&P scheduled for 03/30/2014 @ 1440 with Nayla Caputo MD Needs: H&P, EKG documented in this encounter Plan of Treatment Not on filedocumented as of this encounter Visit Diagnoses Not on filedocumented in this encounter Care Teams Hydrodynamicist Relationship Specialty Start Date End Date Nayla Caputo MD PCP - General 05/05/[address] [place] [address] [place] [address] documented as of this encounter
--- OUTSIDE RECORDS SUMMARY | 2021-10-09 21:51 | XMS_ITS | Encounter Summary ---
:1940 Author Organization [facility] Address [address] [place] [address] Care Team Providers Name Role Phone Unavailable Primary Care Provider Unavailable Encounter Details Date Type Department Care Team Description 12/09/2007 Office Visit [facility] Kamari Mosher MD Ophthalmology [address] [address] [address], [place] [phone] (Wo rk) Social History Tobacco Use Types Packs/Day Years Used Date Never Assessed Sex Assigned at Date Recorded Not on file documented as of this encounter Discharge Disposition Disposition Code Departure Means Destination Auto Discharge documented in this encounter Progress Notes Jean Mosher MD - 10/23/2008 0510 EDT DIVISION OF OPHTHALMOLOGY [facility] December 09, 2007 Samm Laurent MD [facility] [address] Zapien [address] [place] [id number] Dear Yobani: Dinesh Peña was seen today and her macular region was reassessed. 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 Visual acuity has improved significantly since cataract surgery and she is now seeing about 20/30-1. In the left eye, she has a significant nuclear sclerotic cataract and she is soon to have cataract surgery. Comment: Yobani, the patient is doing fine in the right eye. I think that her macularsituation is consistent with her slightly diminished central acuity. This looks quite stable and thus I am going to get her back to you for ongoing care with the understanding that I am more than glad to see her again as you see fit. I have given the patient an Amsler grid to follow her central vision with and should she notice a change in the Amsler grid, she has been instructed to talk to you (or me in your absence). Thanks so much for letting me participate in the care of this nice lady. Addendum: The patient notes that the Pred Forte drops or prednisolone acetate drops that she has been on postoperatively seem to be irritating her throat. She was worried this might delay her surgery. I told her I did not think so. I have asked your office to give me acall this afternoon, just to giveyou a heads up on this as her surgery is this . Sincerely, Signed by Jean Mosher MD 12/12/2007 11:21 Jean Mosher MD [facility] - [facility] Vitre[facility] [address] [place] [id number] - Jean Mosher MD - DV Job ID: [id number] Doc ID: [id number] cc: Samm Laurent MD documented in this encounter Plan of Treatment Not on filedocumented as of this encounter Procedures Procedure Name Priority Date/Time Associated Comments Diagnosis HPV DETECTION, HIGH Routine 08/10/2008 14:08 Resu lts for this RISK TYPES EDT procedure are i n the results section. CYTOPATHOLOGY Routine 08/10/2008 0:00 Results for this EDT procedure are i n the results section. documented in this encounter Results HUMAN PAPILLOMA VIRUS DNA TEST (08/10/2008 14:08 EDT) Specimen Description Cervix, ThinPrep JAMES TAYLOR L AB vial Result Negative for HPV JAMES DAVID types 16, 18, 31, 33, 35, 39, 45, 51, 52, 56, 58, 59, and 68. Report Status Final JAMES DAVID 08/19/2008 Specimen Performing Organization Address City/State/ZIP Code Phon e Number [facility] [address] [place] [address] [facility] [address] [place] [address] CYTOPATHOLOGY (08/10/2008 0:00 EDT) Pathology Report: CYTOPATHOLOGY REPORT ? [facility] ? LAB Reports generated via electr onic interface contain original data; ? however they are lacking the format of the original report. ? Caution should be taken when reading/interpreting unformatted reports. ? Name: ? DINESH PEÑA ? Accession #: ? [id number] ? : ? 1940 (Age: 68) ??F ?Collect Date: ? 08/10/2008 ? Location: ? [facility] ? Receive Date: ? 08/12/2008 ? Provider: ?STEVEN OSORIO MD ? Copy to: ? Specimen/Source: ? Pap Test, Cervix/Endocervix, ThinPrep Imaging System ? with manual evaluation ? Last Menstrual Period: ? Menstrual/ Status: ? Post Menopausal ? Other: ? HPVDX - HPV testing requeste d regardless of diagnosis on current ThinPrep Pap ?? test. ? SPECIMEN ADEQUACY ? Satisfactory for Eval uation ? - assessment of transformati on zone component not applicable ( e.g. atrophy, ? vaginal sample, hysterectomy ) ? GENERAL CATEGORIZATION ? Negative for Intraepi thelial Lesion or Malignancy ? Document reviewed and electr onically signed by: ? Steven Del Cid, SCT( ASCP) ? Report Date: ??05/18/ 2009 10:32 ? End of Report ? Specimen Performing Organization Address City/State/ZIP Code Phon e Number [facility] [address] [place] [address] SERVICES [facility] [address] [place] [address] documented in this encounter Visit Diagnoses Not on filedocumented in this encounter
--- OUTSIDE RECORDS SUMMARY | 2021-10-09 21:51 | XMS_ITS | Encounter Summary ---
:1940 Author Organization [facility] Address [address] [place] [id number] Care Team Providers Name Role Phone Nayla Caputo MD Primary Care Provider Reason for Visit Reason Comments Eye Problem s/p SB left eye. Notes left eye tiredness and itching with dryness. Vision stable Encounter Details Date Type Department Care Team Description 08/16/2014 Office Visit [facility] Adrian Aguilera MD Ophthalmology - [address], [address], [address] [place], [place] [address] [place] [address] [phone] (Wo rk) Social History Tobacco Use Types Packs/Day Years Used Date Never Smoker Alcohol Use Standard Drinks/Week Comments Not Asked 0 (1 standard drink = 0.6 oz pure alcoho l) Sex Assigned at Date Recorded Not on file documented as of this encounter Discharge Diagnoses Diagnosis 361.00 DETACHMNT W DEFECT NOS[ICD-9-CM] 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 Eye Problem s/p SB left eye. Notes left eye tiredness and itching with dryness. Vision stable HPI Location: Left eye Pain: 0 - No pain Quality: Severity: Mild Duration: Months Timing: Lasts: Context: Blurred vision left eye Modifying factors: s/p SB for HST left eye Associated Signs & Symptoms: Dryness both, has done better in the past with drops Likes thera tears the best both eyes Visual Fluctuations: None Attestation: Base Eye Exam Visual Acuity (Snellen - Linear) Right Left Dist cc 20/25 -2 20/40 Correction: Glasses Tonometry (Applanation, 13:30) Right Left Pressure 18 17 Pupils Pupils Right PERRL Left PERRL Extraocular Movement Right Left Result Full Full Neuro/Psych Oriented x3: Yes Mood/Affect: Normal Dilation Both eyes: 1.0% Mydriacyl, 2.5% Phenylephrine @ 13:30 Slit Lamp and Fundus Exam External Exam Right Left External Normal Normal Slit Lamp Exam Right Left Lids/Lashes Blepharitis Blepharitis Conjunctiva/Sclera White and quiet White and quiet Cornea Clear Clear Anterior Chamber Deep and quiet Deep and quiet Iris Round and reactive Round and reactive Lens Posterior chamber intraocular lens Posterior chamber intraocular lens Vitreous Posterior vitreous detachment Posterior vitreous detachment Fundus Exam Right Left Disc Normal Normal C/D Ratio 0.4 0.3 Macula Normal Normal Vessels Normal Normal Periphery Normal low broad scleral buckle 360, retina flat Edited by: Key Harris OTA; Yadira Roy All five layers of the cornea are normal unless otherwise specified. Please refer to large retinal drawing. IMPRESSION: 1. Retinal detachment with retinal defect, unspecified 2. PVD (posterior vitreous detachment) 3. Dry eyes 4. Blepharitis, unspecified PLAN: S/p RD repair left eye Retina flat on scleral buckle 360 No new tears Observe PVD both eyes, no tears right eye RD warnings Follow Dry eyes, both Frequent ATs both eyes Bleph both eyes, Hot packs, lid scrubs prn Recheck 4 months with [facility] I, Dr. Adrian Aguilera, have performed my own HPI and reviewed the tech's ROS. I have also reviewed the patient's past medical, family, social and surgical history, as well as the patient's medications, allergies, and problem list. I am scribing for Adrian Aguilera MD while he is personally performing the service. KATHY Jerome (Scribe) documented in this encounter Plan of Treatment Not on filedocumented as of this encounter Visit Diagnoses Diagnosis Retinal detachment with retinal defect, unspecified - Primary PVD (posterior vitreous detachment) Vitreous degeneration Dry eyes Tear film insufficiency, unspecified Blepharitis, unspecified documented in this encounter Discontinued Medications Medication Sig Discontinue Reason Start Date End Date ofloxacin (OCUFLOX) 0.3 % Place 1-2 Drops Therapy completed 015 08/16/2014 ophthalmic solution into the left eye 4 times daily. ofloxacin (OCUFLOX) 0.3 % Place 1-2 Drops Therapy completed 015 08/16/2014 ophthalmic solution into the left eye 4 times daily. prednisoLONE (PRED FORTE) Place 1 Drop into Therapy completed 04/0108/16/2014 1 % ophthalmic suspension the left eye 4 times daily. prednisoLONE (PRED FORTE) Place 1 Drop into Therapy completed 04/0508/16/2014 1 % ophthalmic suspension the left eye 4 times daily. acetaminophen (TYLENOL) Take 500 mg by Therapy completed 08/16/2014 500 mg tablet mouth daily. cephALEXin (KEFLEX) 500 mg Take 500 mg by Therapy completed 08/16/2014 capsule mouth 3 times daily. homatropine (ISOPTO Place 1 Drop into Therapy completed 04/01/2014 08/16/2014 HOMATROPINE) 5 % the left eye 2 ophthalmic solution times daily. homatropine (ISOPTO Place 1 Drop into Therapy completed 04/05/2014 08/16/2014 HOMATROPINE) 5 % the left eye 2 ophthalmic solution times daily. HYDROcodone-acetaminophen Take 1 Tab by Therapy completed 08/16/2014 (LORTAB) 5-500 mg tablet mouth every 6 hours as needed for Pain documented as of this encounter Historical Medications This list may reflect changes made after this encounter. Medication Sig Dispensed Refills Start Date End Date UNABLE TO FIND Take 1 Tab by mouth 3 times 0 daily Med Name: Can not remember name, for restless leg added in this encounter Eye Exam Visual Acuity (Snellen - Linear) Right eye Left eye Dist cc 20/25 -2 20/40 Correction: Glasses Tonometry (Applanation, 13:30) Right eye Left eye Pressure 18 17 Pupils Pupils Right eye PERRL Left eye PERRL Extraocular Movement Right eye Left eye Full Full Neuro/Psych Oriented x3: Yes Mood/Affect: Normal Dilation Both eyes: 1.0% Mydriacyl, 2.5% Phenylep hrine @ 13:30 External Exam Right eye Left eye External Normal Normal Slit Lamp Exam Right eye Left eye Lids/Lashes Blepharitis Blepharitis Conjunctiva/Sclera White and quiet White and quiet Cornea Clear Clear Anterior Chamber Deep and quiet Deep and quiet Iris Round and reactive Round and reactive Lens Posterior chamber intraocular Posterior chamber intraocular lens lens Vitreous Posterior vitreous detachment Posterior vitreous detachment Fundus Exam Right eye Left eye Disc Normal Normal C/D Ratio 0.4 0.3 Macula Normal Normal Vessels Normal Normal Periphery Normal low broad scleral bu ckle 360, retina flat Care Teams Retail Sales Professional Relationship Specialty Start Date End Date Nayla Caputo MD PCP - General 05/05/[address] [place] [address] [place] [address] documented as of this encounter
--- OUTSIDE RECORDS SUMMARY | 2021-10-09 21:51 | XMS_ITS | Encounter Summary ---
:1940 Author Organization [facility] Address [address] [place] [address] Care Team Providers Name Role Phone Unavailable Primary Care Provider Unavailable Encounter Details Date Type Department Care Team Description 05/01/2013 Hospital Encounter [facility]- [place]ony [place], Provider, Louis Zimmer MD [address] [facility] [phone] [place] [address] (Work) [phone] Social History Tobacco Use Types Packs/Day Years Used Date Never Assessed Sex Assigned at Date Recorded Not on file documented as of this encounter Discharge Disposition Disposition Code Departure Means Destination Home or Self Custodial documented in this encounter Plan of Treatment Not on filedocumented as of this encounter Visit Diagnoses Not on filedocumented in this encounter
--- OUTSIDE RECORDS SUMMARY | 2021-10-09 21:51 | XMS_ITS | Encounter Summary ---
:1940 Author Organization [facility] Address [address] [place] [address] Care Team Providers Name Role Phone Nayla Caputo MD Primary Care Provider Reason for Visit Reason Comments Eye Problem ERV- macula off RD in the le ft eye per Dr. Laurent. Sudden VA loss left eye x 5 days. Hx floaters x 6 mos in the left eye. No flashes Encounter Details Date Type Department Care Team Description 03/29/2014 Office Visit [facility] Kamari Mosher MD Ophthalmology - [address], [address] [place] [address] [place], [place] [phone] (Wo rk) Social History Tobacco Use Types Packs/Day Years Used Date Never Smoker Alcohol Use Standard Drinks/Week Comments Not Asked 0 (1 standard drink = 0.6 oz pure alcoho l) Sex Assigned at Date Recorded Not on file documented as of this encounter Last Filed Vital Signs Vital Sign Reading Time Taken Comments Blood Pressure 148/76 03/29/2014 1436 EST Pulse - - Temperature - - Respiratory Rate - - Oxygen Saturation - - Inhaled Oxygen Concentration - - Weight - - Height - - Body Mass Index - - documented in this encounter Discharge Diagnoses Diagnosis 361.32 HORSESHOE TEAR OF RETINA[ICD-9-CM ] 361.00 DETACHMNT W DEFECT NOS[ICD-9-CM] 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] 379.31 APHAKIA[ICD-9-CM] V43.1 LENS REPLACEMENT NEC[ICD-9-CM] documented in this encounter Discharge Disposition Disposition Code Departure Means Destination Auto Discharge documented in this encounter Progress Notes Jean Mosher MD - 03/29/20142049 EST [facility] March 29, 2014 Samm Laurent MD [facility] [address], [address] [place] [address] RE: MARCIA PEÑA : 1940 Dear Samm, It was my pleasure to see your nice patient, Marcia Peña today in the retina clinic, who has been noted by you to have a rhegmatogenous fovea-off retinal detachment with symptoms for at least 4 days. Right eye is doing well. She thinks she has had floaters for months. Today, visual acuities were 20/20 right, and count fingers 2 feet left. Intraocular pressures were 20, both. I have evaluated the following things in both eyes, confrontations visual corley to count fingers, extraocular movements and eyes in primary position and these are all normal except unable to count fingers well in the left eye except temporally (Normal confrontation visual corley means visual corley are full to count fingers in all six corley. Extraocular movements normal means movements were full and concomitant. Eyes normal in primary position means eyes are straight in primary position). I have examined the following ophthalmic exam components for this patient, inspection of bulbar and palpebral conjunctivae, ocular adnexa, which includes the lids, lacrimal glands, lacrimal drainage, orbits and preauricular lymph nodes, examination of pupils including shape, reaction and size, morphology not done due to mydriasis, irises were examined, presence or absence of rubeosis, corneal exam including epithelium, stroma, endothelium and tear film, anterior chambers including depth, cells and flare, lens exam including clarity, anterior and posterior capsule, cortex and nucleus. The above are all normal both eyes except PC implants. Extended ophthalmoscopy, left eye, with 360 degree scleral depression and contact lens examination- indications retinal detachment - (both eyes) reveals no definite PVD, right. There are no holes, tears or detachments in the right eye. The patient has extensive peripheral drusen, right. Cupping is physiologic at about 0.4. Macular regions look good for age. In the left eye, the patient has a rhegmatogenous bullous macula-off detachment with a hole at the edge of lattice at about 3 o'clock. She also has 2 holes outside the detachment at about 12 and 12:30 o'clock. PVD is present. Assessment: 1. Macula-off retinal detachment, left. Risks, benefits and alternatives to surgery thoroughly discussed. Risks and potential complications including but not limited to loss of vision, blindness, loss of the eye discussed. Various surgical options were discussed including nonintervention, pneumatic retinopexy, buckling and vitrectomy. I told the patient I thought that she was a good candidate for buckle and she has elected to proceed with buckling, which we will get scheduled. 2. Aphakia, IOL, looks good. 3. No holes, tears or detachments, right eye. Yobani, thanks so much for letting me take part in the care of Ms Peña. She has been instructed rajesh at rest until we get her to the operating room. No heavy lifting, bending, straining or impact activity. She asked me about dancing. I said definitely not. She will position on her left side as muchas possible until we can get her to the operating room. Thanks for letting me take part in her care. Sincerely, Jean Mosher MD 04 46 PM - Jean Mosher MD cn Dictation ID: [id number] cc: Samm Laurent MD, [facility] [address], [address], [place] [address] Addendum- patient doing well post buckle surg- she will see me on Saturday in follow up- thanks for letting me see this nice lady AHMiJean altamirano MD - 03/29/2014 6638 EST Chief Complaint Patient presents with ??? Eye Problem ERV- macula off RD in the left eye per Dr. Laurent. Sudden VA loss left eye x 5 days. Hx floaters x 6 mos in the left eye. No flashes HPI Location: Left eye Pain: 0 - No pain Quality: Blurry Severity: Duration: Days Timing: Constant Lasts: Continuous Context: Pt reports a sudden vision loss in the left eye x 5 days. Fkloaters x 6 months, no flashes. Modifying factors: Floaters in the left eye x 6 mo, no flashes Associated Signs & Symptoms: Mac off RD left eye per Dr. Laurent. Hx mac hole in the left eye. Visual Fluctuations: Floaters Attestation: Blood pressure: A1c: Base Eye Exam Visual Acuity Right Left Dist sc -1 Dist cc 20/20 CF at 2' Method: Snellen - Linear Correction: Glasses Tonometry Right Left Pressure 20 20 Method: Applanation Time: 14:50 Pupils Pupils Right PERRL Left PERRL Visual Corley Right Left Result Full Restrictions Partial superior nasal, inferior nasal deficiencies Extraocular Movement Right Left Result Full, Ortho Full, Ortho Dilation Both eyes: 1.0% Mydriacyl, 2.5% Hima Synephrine @ 14:50 Slit Lamp and Fundus Exam External Exam Right Left External Normal Normal Slit Lamp Exam Right Left Lids/Lashes Blepharitis Blepharitis Conjunctiva/Sclera White and quiet White and quiet Cornea Clear Clear Anterior Chamber Deep and quiet Deep and quiet Iris Dilated Dilated Lens Posterior chamber intraocular lens Posterior chamber intraocular lens Fundus Exam Right Left C/D Ratio 0.4 0.4 Macula Normal mac involved RD Vessels Normal Normal Periphery Normal mac off nasal RD, HST'S at 12 and 12:30 Impression: 1. Retinal detachment with retinal defect, unspecified 2. 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 She understands that this is a surgical problem and that without intervention, there is a high likelihood of progression to loss of vision. We discussed the various options including laser, pneumatic retinopexy, scleral buckling and vitrectomy surgery for treatment ofretinal detachment. We have also gone over the risks, benefits and alternatives of any surgical procedure including lossof vision, blindness, loss of the eye, failure of the intervention to cure the problem, glaucoma. Wehave also discussed the potential need for additional surgical interventions if the initial attempt at surgery fails to stabilize or correct the problem. Pertinent to scleral buckling the patient understands the risk of change in refractive error, anisometrropia with anisiconia, ptosis , strabismus, diplopia and pain ( with any surgical procedure but especially with a buckle). Pertinent to vitrectomy the patient understands there is a high likelyhood of progressive worsening of cataract and that conscientious face down or other specific positioning will be required for a cure if an intraocular gas bubble is placed. Pertinent to pneumatic retinopexy the patient understands that the cure rate is lower than with a buckle or a vitrectomy and that very fastidious positioning is necessary for a cure of retinal detachment. Pertinent to laser for retinal d etachment the patient understands that retinal detachment is sometimes only temporally arrested by this technique and that careful follow up is essential to ascertain residential arrest of retinal detachment progression Marcia understands that no guarantee can be made as to the outcome. Patient AFTER LISTENINJG TO CAREFUL DISCUSSION OF OPTIONS agrees to schedule surgery ie scleral buckle WILL REMAIN AT REST TIL SURG LIE ON LEFT SIDE MUCH POSSIBLE HST'S-left eye With RD Will sina SB/cryo Lattice-left eye With tear at the superior edge of the lattice and RD Will sina SB Follow up schedule SB left eye This office note has been dictated. I, Dr. Mosher, have performed my own HPI and reviewed the tech's ROS. I have also reviewed the patient's past medical, family, social and surgical history, as well as the patient's medications, allergies, and problem list. I am scribing for Dr. Jean Mosher MD, while he is personally performing the service. KATHY Garibay (Scribe) documented in this encounter Plan of Treatment Not on filedocumented as of this encounter Visit Diagnoses Diagnosis Retinal detachment with retinal defect, unspecified - Primary Horseshoe tear of retina without detachm ent Lattice degeneration of peripheral retin a documented in this encounter Eye Exam Visual Acuity (Snellen - Linear) Right eye Left eye Dist sc -1 Dist cc 20/20 CF at 2' Correction: Glasses Tonometry (Applanation, 14:50) Right eye Left eye Pressure 20 20 Pupils Pupils Right eye PERRL Left eye PERRL Visual Corley Right eye Left eye Full Restrictions Partial outer superi or nasal, inferior nasal deficiencies Extraocular Movement Right eye Left eye Full, Ortho Full, Ortho Dilation Both eyes: 1.0% Mydriacyl, 2.5% Hima Syne phrine @ 14:50 External Exam Right eye Left eye External Normal Normal Slit Lamp Exam Right eye Left eye Lids/Lashes Blepharitis Blepharitis Conjunctiva/Sclera White and quiet White and quiet Cornea Clear Clear Anterior Chamber Deep and quiet Deep and quiet Iris Dilated Dilated Lens Posterior chamber intraocular Posterior chamber intraocular lens lens Fundus Exam Right eye Left eye C/D Ratio 0.4 0.4 Macula Normal mac involved RD Vessels Normal Normal Periphery Normal mac off nasal RD, HS T'S at 12 and 12:30 Care Teams Production Engineer Relationship Specialty Start Date End Date Nayla Caputo MD PCP - General 05/05/[address] [place] [address] [place] [address] documented as of this encounter
--- OUTSIDE RECORDS SUMMARY | 2021-10-09 21:51 | XMS_ITS | Encounter Summary ---
:1940 Author Organization [facility] Address [address] [place] [address] Care Team Providers Name Role Phone Nayla Galan MD Primary Care Provider Encounter Details Date Type Department Care Team Description 07/17/2013 Results Only [facility] Omer Flores MD Laboratory Services - [address] [facility] [place], [place] [address] [place] [id number] [place] [address] [phone] Social History Tobacco Use Types Packs/Day Years Used Date Never Assessed Sex Assigned at Date Recorded Not on file documented as of this encounter Plan of Treatment Not on filedocumented as of this encounter Procedures Procedure Name Priority Date/Time Associated Diagnosis Comme nts SURGICAL PATHOLOGY Routine 07/17/2013 10:03 Resul ts for this EDT procedure are i n the results section. documented in this encounter Results SURGICAL PATHOLOGY (07/17/2013 10:03 EDT) Pathology Report: SURGICAL PATHOLOGY REPORT JAMES BROWN Reports generated via electronic interface contain amy ginal data; LAB however they are lacking the format of the original re port. Caution should be taken when reading/interpreting unfo rmatted reports. Name: ? MARCIA PEÑA ? Accession #: ? [id number] ? : ? 1940 (Age: 73) ??F ? Collect Date: ? 07/17/2013 ? Location: ? [facility] ? Receive Date: ? 014 ? Provider: ALETA FLORES MD Copy to: NAYLA GALAN MD ? Final Pathologic Diagnosis: SOFT TISSUE OF HIP, LEFT, DEBRIDEMENT: - ??Skin and soft tissue with ulceration, abscess form ation and reparative changes including fibrosis and foreign body carlos t cell reaction. See comment. - ??GMS and AFB stains on A2 and A3 are negative for f ungal organisms and acid-fast bacilli. - ??Congo red stain on A1 is negative for amyloid. - ??Tissue gram stain (Jasmyn) on A1 is negat fabian for bacteria. Comment: Sections show epidermal ulce ration and dermal reparative changes with underlying abscess formation composed of predominantly neut rophils and histiocytes. ??No granulomas are identified. ??The histochemical stains are negative for microorganisms. ??However, correlation with concurrent tissue cultures is essential. ??Estimator And Drafter sections of this case were reviewed at the intradepartmental consultation conference. Dr. Jeffries 07/27/2013 11:45 AM Document reviewed and electronically signed by: HAYLEY JEFFRIES MD Report ??Date: 07/27/2013 13:04 By the signature above, the attending physician certif ies that he/she has personally conducted a gross and/or microscopic examin ation of the described specimens and rendered or confirmed the above diagnosi s. Specimen(s) Received: L hip Clinical History: Atypical soft tissue infecti on L hip; multiple C+S (-) for bacterial growth with patient off of antibiotics; Pt does drink raw milk; ? mycobacterial infection, ? tuberculosis; please do fungal, T.B., C&S, ? acid fast bacilli, ? caseous granuloma Gross Description: ? Received fresh labell ed with proper patient identification (initials S, R) and left hip tissue is a newman unoriented 4.8 x 2.2 cm ellipse excised to a depth of 0.5 cm. ??The deep margin is received p reviously disrupted. ??On the epidermis, there is a newman-yellow 1.5 x 1.0 cm ulcerati ve skin lesion. Separately received are mult iple newman-steele friable tissue fragments measuring 3.5 x 3.0 x 1.5 cm in aggregate. ??The skin ellipse is ink ed. ??Estimator And Drafter sections are submitted as follows: BLOCK LOJA 1-2- ??Skin ellipse with ulcerative lesion 3- ??Friable tissue fragments Monet Nidhi 07/20/2013 09:02 AM End of Report Specimen Performing Organization Address City/State/ZIP Code Phon e Number [facility] [address] [place] [address] [facility] [address] [place] [address] documented in this encounter Visit Diagnoses Not on filedocumented in this encounter Care Teams Tobacco Checkout Clerk Relationship Specialty Start Date End Date Nayla Galan MD PCP - General 05/05/[address] [place] [address] [address] [place], [place] [id number] documented as of this encounter
--- OUTSIDE RECORDS SUMMARY | 2021-10-09 21:51 | XMS_ITS | Encounter Summary ---
:1940 Author Organization [facility] Address [address] [place] [address] Care Team Providers Name Role Phone Nayla Caputo MD Primary Care Provider Reason for Visit Reason Onset Date Comments Pre-visit Orders 03/29/2014 Encounter Details Date Type Department Care Team Description 03/29/2014 Pre-Procedure [facility] Kamari Mosher MD Orders Encounter Ophthalmology - [address] [place] [address] [facility] [place] [phone] (Wo rk) Social History Tobacco Use Types Packs/Day Years Used Date Never Smoker Alcohol Use Standard Drinks/Week Comments Not Asked 0 (1 standard drink = 0.6 oz pure alcoho l) Sex Assigned at Date Recorded Not on file documented as of this encounter Plan of Treatment Not on filedocumented as of this encounter Visit Diagnoses Not on filedocumented in this encounter Care Teams Bridge Worker Relationship Specialty Start Date End Date Nayla Caputo MD PCP - General 05/05/[address] [place] [address] [address] [place], [place] [id number] documented as of this encounter
--- OUTSIDE RECORDS SUMMARY | 2021-10-09 21:51 | XMS_ITS | Encounter Summary ---
:1940 Author Organization [facility] Address [address] [place] [address] Care Team Providers Name Role Phone Nayla Caputo MD Primary Care Provider Reason for Visit Reason Comments Eye Problem Encounter Details Date Type Department Care Team Description 04/01/2014 Office Visit [facility] Kamari Mosher MD Ophthalmology - [address], [address], [address] [place] [address] [place], [place] [phone] (Wo rk) Social History Tobacco Use Types Packs/Day Years Used Date Never Smoker Alcohol Use Standard Drinks/Week Comments Not Asked 0 (1 standard drink = 0.6 oz pure alcoho l) Sex Assigned at Date Recorded Not on file documented as of this encounter Discharge Diagnoses Diagnosis 361.00 DETACHMNT W DEFECT NOS[ICD-9-CM] documented in this encounter Ordered Prescriptions Prescription Sig Dispensed Refills Start Date End Date homatropine (ISOPTO Place 1 Drop into 1 Bottle 3 5 08/16/2014 HOMATROPINE) 5 % the left eye 2 ophthalmic solution times daily. prednisoLONE (PRED FORTE) Place 1 Drop into 1 Bottle 3 04/201408/16/2014 1 % ophthalmic suspension the left eye 4 times daily. ofloxacin (OCUFLOX) 0.3 % Place 1-2 Drops 1 Bottle 3 04/0108/16/2014 ophthalmic solution into the left eye 4 times daily. documented in this encounter Progress Notes Jean Mosher MD - 04/01/2014 1107 EST Post op day 1 nl findings No retinal detachment, no infection, IOP acceptable counseled to call prn pain pus loss vision nausea or vomiting new flashes or floaters. Discussed postop eye drops- pt understands. Reinforced no heavy lifting bending or straining, and discussed correct positioning- pt understands. May shower if feeling OK but do not swim, tub bathe or hot tub till otherwise directed. Call office immediately if problems arise. smalll inf temp choroidal IOP mary alice= 23 Plan recheck Saturday or No heavy lifiing bending or straining Position right side one thin pillow Bran cereal 1/2 cup q am documented in this encounter Plan of Treatment Not on filedocumented as of this encounter Visit Diagnoses Diagnosis Retinal detachment with retinal defect, unspecified - Primary documented in this encounter Care Teams Shoe Folder Relationship Specialty Start Date End Date Nayla Caputo MD PCP - General 05/05/[address] [place] [address] [place] [address] documented as of this encounter
--- OUTSIDE RECORDS SUMMARY | 2021-10-09 21:51 | XMS_ITS | Encounter Summary ---
:1940 Author Organization [facility] Address [address] [place] [address] Care Team Providers Name Role Phone Nayla Caputo MD Primary Care Provider Reason for Visit Reason Comments Eye Problem s/p buckle left eye. Hx of c horoidal left eye Encounter Details Date Type Department Care Team Description 05/17/2014 Office Visit [facility] Kamari Mosher MD Ophthalmology - [address], [address], [address] [place], [place] [id number] [place] [address] [phone] (Wo rk) Social History Tobacco Use Types Packs/Day Years Used Date Never Smoker Alcohol Use Standard Drinks/Week Comments Not Asked 0 (1 standard drink = 0.6 oz pure alcoho l) Sex Assigned at Date Recorded Not on file documented as of this encounter Discharge Diagnoses Diagnosis 361.00 DETACHMNT W DEFECT NOS[ICD-9-CM] documented in this encounter Progress Notes Jean Mosher MD - 05/17/2014 1022 EST Chief Complaint Patient presents with ??? Eye Problem s/p buckle left eye. Hx of choroidal left eye HPI Location: Left eye Pain: 0 - No pain Quality: Blurry, Tiring Severity: Moderate Duration: Weeks Timing: Constant Lasts: Weeks Context: va improved Modifying factors: s/p buckle left eye. Eye is watery Associated Signs & Symptoms: no new flashes or floaters. Eye feels tired during day. Sometimes will have ache in forehead when eye is tired Visual Fluctuations: Floaters Attestation: Base Eye Exam Visual Acuity (Snellen - Linear) Right Left Dist cc 20/25 +2 20/70 -2 Dist ph cc 20/50-2 Correction: Glasses Tonometry (Applanation, 9:50) Right Left Pressure 15 Pupils Pupils Right PERRL Left PERRL Neuro/Psych Oriented x3: Yes Mood/Affect: Normal Dilation Left eye: 1.0% Mydriacyl, 2.5% Phenylephrine @ 9:50 Slit Lamp and Fundus Exam External Exam Right Left External Normal Slit Lamp Exam Right Left Lids/Lashes Blepharitis Conjunctiva/Sclera Injection Cornea Clear Anterior Chamber Deep and quiet Iris Round and reactive Lens Posterior chamber intraocular lens Fundus Exam Right Left C/D Ratio 0.4 Macula Occ'l hard drusen; looks dry Periphery SB 360; Laser/pexy scars sup and inf; Edited by: Karthik Zheng OTA; Joyce Epstein OTA Impression: 1. Retinal detachment with retinal defect, unspecified Assess/Plan: S/p RD repair left eye 360 SD exam done No new holes or tears noted RD warnings reviewed. Spoke with Marcia Palma and cautioned them to notice any new flashes, floaters, or loss in peripheral vision. If they saw any of these signs, they were instructed to contact office immediately. They have been further counseled to cover the unaffected eye at least once per day to ascertain whether there is any increase in floaters , flashes or loss of side vision occurring in the affected eye. F/U in 3 months sooner prn I, Dr. Mosher, have performed my own HPI and reviewed the tech's ROS. I have also reviewed the patient's past medical, family, social and surgical history, as well as the patient's medications, allergies, and problem list. I am scribing for Dr. Jean Mosher MD while he is personally performing the service. KATHY Ramos (Scribe) documented in this encounter Plan of Treatment Not on filedocumented as of this encounter Visit Diagnoses Diagnosis Retinal detachment with retinal defect, unspecified - Primary documented in this encounter Historical Medications This list may reflect changes made after this encounter. Medication Sig Dispensed Refills Start Date End Date HYDROcodone-acetaminophen Take 1 Tab by mouth 0 08/16/2014 (LORTAB) 5-500 mg tablet every 6 hours as needed for Pain added in this encounter Eye Exam Visual Acuity (Snellen - Linear) Right eye Left eye Dist cc 20/25 +2 20/70 -2 Dist ph cc 20/50-2 Correction: Glasses Tonometry (Applanation, 9:50) Right eye Left eye Pressure 15 Pupils Pupils Right eye PERRL Left eye PERRL Neuro/Psych Oriented x3: Yes Mood/Affect: Normal Dilation Left eye: 1.0% Mydriacyl, 2.5% Phenyleph rine @ 9:50 External Exam Right eye Left eye External Normal Slit Lamp Exam Right eye Left eye Lids/Lashes Blepharitis Conjunctiva/Sclera Injection Cornea Clear Anterior Chamber Deep and quiet Iris Round and reactive Lens Posterior chamber in traocular lens Fundus Exam Right eye Left eye C/D Ratio 0.4 Macula Occ'l hard drusen; l ooks dry Periphery SB 360; Laser/pexy s cars sup and inf; Care Teams School Photograph Editor Relationship Specialty Start Date End Date Nayla Caputo MD PCP - General 05/05/[address] [place] [address] [place] [address] documented as of this encounter
--- OUTSIDE RECORDS SUMMARY | 2021-10-09 21:51 | XMS_ITS | Encounter Summary ---
:1940 Author Organization [facility] Address [address] [place] [id number] Care Team Providers Name Role Phone Nayla Caputo MD Primary Care Provider Reason for Visit Reason Comments Eye Problem s/p buckle left eye. Small c horoidal left eye Encounter Details Date Type Department Care Team Description 04/05/2014 Office Visit [facility] Kamari Mosher MD Ophthalmology - [address], [address], [address] [place], [place] [id number] [place] [address] [phone] [id number] (Wo rk) Social History Tobacco Use [...] left eye 2 ophthalmic solution times daily. ofloxacin (OCUFLOX) 0.3 % Place 1-2 Drops 1 Bottle 3 04/0508/16/2014 ophthalmic solution into the left eye 4 times daily. prednisoLONE (PRED FORTE) Place 1 Drop into 1 Bottle 3 07/201408/16/2014 1 % ophthalmic suspension the left eye 4 times daily. documented in this encounter Progress Notes Jean Mosher MD - 04/05/2014 0959 EST Chief Complaint Patient presents with ??? Eye Problem s/p buckle left eye. Small choroidal left eye HPI Location: Left eye Pain: 0 - No pain Quality: Blurry Severity: Severe Duration: Days Timing: Constant Lasts: Days Context: va improved Modifying factors: s/p buckle left eye. Eye is watery Associated Signs & Symptoms: no new flashes or floaters Visual Fluctuations: Floaters Attestation: Base Eye Exam Visual Acuity Right Left Dist sc 20/200 Method: Snellen - Linear Tonometry Right Left Pressure 12 Method: Applanation Time: 9:07 Neuro/Psych Oriented x3: Yes Mood/Affect: Normal Dilation Left eye: 1.0% Mydriacyl, 2.5% Phenylephrine @ 9:07 Slit Lamp and Fundus Exam External Exam Right Left External Normal Slit Lamp Exam Right Left Lids/Lashes Blepharitis Conjunctiva/Sclera Injection, prominent suture Cornea Clear Anterior Chamber occ'l cell Iris pupil pharm Dilated Lens Posterior chamber intraocular lens Vitreous small bubble Fundus Exam Right Left Disc Normal C/D Ratio 0.4 Macula flat Vessels Normal Periphery scleral buckle 360, small choroidal Impression: 1. Retinal detachment with retinal defect, unspecified Plan: S/p RD repair left eye Doing well, good size bubble in place Position 50/50 now, right eye In 10 days DC Ocuflox and Homatropine Begin taper of Pred forte once each week Follow up with Dr Laurent in 2 weeks Here in 1 month sooner prn RD warnings reviewed. Spoke with Marcia Palma [...] side vision occurring in the affected eye. I, Dr. Mosher, have performed my own HPI and reviewed the tech's ROS. I have also reviewed the patient's past medical, family, social and surgical history, as well as the patient's medications, allergies, and problem list. I am scribing for, Jean Mosher MD, while he is personally performing the service. Yadira Roy COA (Scribe) documented in this encounter Plan of Treatment Not on filedocumented as of this encounter Visit Diagnoses Diagnosis Retinal detachment with retinal defect, unspecified - Primary documented in this encounter Eye Exam Visual Acuity (Snellen - Linear) Right eye Left eye Dist sc 20/200 Tonometry (Applanation, 9:07) Right eye Left eye Pressure 12 Neuro/Psych Oriented x3: Yes Mood/Affect: Normal Dilation Left eye: 1.0% Mydriacyl, 2.5% Phenyleph rine @ 9:07 External Exam Right eye Left eye External Normal Slit Lamp Exam Right eye Left eye Lids/Lashes Blepharitis Conjunctiva/Sclera Injection, prominent suture Cornea Clear Anterior Chamber occ'l cell Iris pupil pharm Dilated Lens Posterior chamber in traocular lens Vitreous small bubble Fundus Exam Right eye Left eye Disc Normal C/D Ratio 0.4 Macula flat Vessels Normal Periphery scleral buckle 360, small choroidal Care Teams Land Checker Relationship Specialty Start Date End Date Nayla Caputo MD PCP - General 05/05/[address] [place] [address] [place] [address] documented as of this encounter
--- OUTSIDE RECORDS SUMMARY | 2021-10-09 21:51 | XMS_ITS | Encounter Summary ---
:1940 Author Organization [facility] Address [address] [place] [address] Care Team Providers Name Role Phone Nayla Caputo MD Primary Care Provider Encounter Details Date Type Department Care Team Description 03/31/2014 Hospital Encounter [facility] Christine Mosher MD Perioperative Services- [address] [place] [address] [address], [place] [address] (Wo rk) Social History Tobacco Use Types Packs/Day Years Used Date Never Smoker Alcohol Use Standard Drinks/Week Comments Not Asked 0 (1 standard drink = 0.6 oz pure alcoho l) Sex Assigned at Date Recorded Not on file documented as of this encounter Last Filed Vital Signs Vital Sign Reading Time Taken Comments Blood Pressure 119/70 03/31/2014 1153 EST Pulse - - Temperature 35.9 ??C (96.6 ??F) 03/31/2014 1153 EST Respiratory Rate 15 03/31/2014 1153 EST Oxygen Saturation 98% 03/31/2014 1153 EST Inhaled Oxygen Concentration - - Weight 83.9 kg (185 lb) 03/31/2014 0702 EST Height 160 cm (5' 3) 03/31/2014 0702 EST Body Mass Index 32.77 03/31/2014 0702 EST documented in this encounter Discharge Instructions InstructionsJean Mosher MD - 03/31/2014 Post Operative Retinal Detachment Surgery Instructions: Positioning: Lie on abdomen or sit with nose straight down or walk with nose straight down today , may sleep on right side tonite with nose tucked into pillow---recovery nurses to reinforce positioningplease- thanks Patient to avoid religiously heavy lifting, bending or straining til otherwise instructed Patient to wear eye shield until tomorrow when patient sees retinal specialist and then at night tilotherwise instructed. During day thereafter glasses or sunglasses to be used to shield the eye or in the absence glasses wear the shield without an underlying patch Please call your surgeon regarding significant pain, or nausea and vomiting See Dr. Jean Mosher tomorrow in clinic Use tylenol extra strength for pain- do not exceed dosage on the bottle No swimming, hot tubbing or tub bathing til otherwise instructed Call [phone] to reach the office or retinal on-call team for urgent post surgical issues. documented in this encounter Medications at Time of Discharge Medication Sig Dispensed Refills Start Date End Date CALCIUM CARBONATE/VITAMIN Take 2 Tabs by mouth 0 D2 (CALCIUM + VITAMIN D daily. ORAL) calcium-vitamin D (OS-LOUISA Take 1 Tab by mouth 0 D) 500 mg(1,250mg) -200 2 times daily with unit per tablet breakfast and dinner. cyanocobalamin 500 mcg Take 500 mcg by 0 tablet mouth daily. enalapril (VASOTEC) 10 mg Take 10 mg by mouth 0 tablet daily. gabapentin (NEURONTIN) Take 300 mg by mouth 0 300 mg capsule at bedtime. losartan (COZAAR) 50 mg Take 50 mg by mouth 0 tablet daily. Magnesium 250 mg tablet Take 2 Tabs by mouth 0 daily. metFORMIN (GLUCOPHAGE) Take 500 mg by mouth 0 500 mg tablet 2 times daily with breakfast and dinner. RED YEAST RICE EXTRACT, by misc (non-drug; 0 BULK, MISC combo route) route. acetaminophen (TYLENOL) Take 500 mg by mouth 0 08/16/2014 500 mg tablet daily. cephALEXin (KEFLEX) 500 Take 500 mg by mouth 0 08/16/2014 mg capsule 3 times daily. documented as of this encounter Discharge Disposition Disposition Code Departure Means Destination Home or Self Care documented in this encounter Progress Notes Agatha Page RN - 03/31/2014 1222 EST Pt is compliant w positioning requirements, Family is aware & supportive & will reinforce documented in this encounter H&P Notes COMPOSITE ENGINEER, SCAN 2 - 04/06/2014 1100 EST Jean Mosher MD - 03/31/2014 0725 EST The preoperative history and physical which was performed within 30 days of this procedure has been reviewed and the clinically appropriate elements of the physical examination havebeen repeated. There are no changes to the documented history and physical or if so such changes aredocumented below Jean Mosher MD 03/31/2014 7:25 documented in this encounter Nursing Notes COMPOSITE ENGINEER, SCAN 2 - 04/06/2014 1100 EST documented in this encounter OR Notes OR PreOp - COMPOSITE ENGINEER, SCAN 2 - 04/06/2014 1100 EST Anesthesia Preprocedure Evaluation - COMPOSITE ENGINEER, SCAN 2 - 04/06/2014 1100 EST R Surgeon - Jean Mosher MD - 03/31/2014 1123 EST OPERATIVE REPORT SERVICE DATE: 03/31/2014 PREOPERATIVE DIAGNOSIS: Rhegmatogenous fovea off retinal detachment. POSTOPERATIVE DIAGNOSIS: Rhegmatogenous fovea off retinal detachment. PROCEDURE: Scleral buckle with 279 exoplant, 240 encircling band, 70 sleeve, subretinal fluid drainage, cryopexy. SURGEON: Jean Mosher MD DENTURE CONTOUR WIRE SPECIALIST: Karthik Zheng. BLOOD LOSS: Negligible. COMPLICATIONS: Without. ANESTHESIA: General. FLUIDS: Per anesthesia. NARRATIVE: The patient was brought to the operating room where general anesthesia was established. The patient's left eye was sterilely prepped and draped, a lid speculum placed on the left eye. Peritomy was made 360 degrees at the limbus. Blunt dissection was carried out in the quadrants between the m uscles. Each muscle was isolated and placed on a bridle suture of 2-0 silk. Using the indirect ophthalmoscope, retinal pathology was marked and treated with cryopexy. Horizontal mattress sutures x3 were placed temporally, one under the lateral rectus muscle, one in the inferotemporal quadrant and one in the superotemporal quadrant. Distance between bites was 11.5 mm. After this was done, a 279 exoplant and a 240 encircling band were placed around the eye, in the bed of the sutures, and the band was tied superonasally with a Watzke sleeve. An area for subretinal fluid drainage was selected at the superior margin of the lateral rectus muscle; this was in the bed of the buckle. A sclerotomy was made,a choroidal knuckle presented. It was inspected for large blood vessels, none were seen. A 25-gauge needle dipped in Neosporin ophthalmic solution was used to puncture the knuckle. Copious drainage of subretinal fluid occurred. After the drainage had become minimal, the buckle was tied up in its entirety. It was noted that the pathology was well positioned on the buckle. There was residual subretinalfluid and the eye was soft at this point in the procedure. SF6 gas was then injected via the superotemporal pars plana at a distance of 3.5 mm from the corneoscleral limbus, as measured with caliper. The site was touched with Neosporin and then the needle was placed into the vitreous cavity, visualized and a brisk injection was carried out to achieve a large bubble. Encircling band was then tightenedto an appropriate tightness and cut short. Stay sutures were placed around the encircling band superonasally and inferonasally to prevent migration. The subtenons space was then irrigated copiously with normal saline solution followed by posterior subtenons aliquot of anesthetic, half and half of 0.5%Marcaine and 1% lidocaine. Total volume of 2 mL was given around the eye, posterior subtenons. The conjunctiva was closed after the buckle was perfused with Neosporin ophthalmic solution. The conjunctiva was closed with several interrupted 6-0 plain gut sutures. A subtenons injection of 0.5 mL of Kenalog, 0.5 mL of tobramycin and 0.5 mL of vancomycin was given at the end of the case. The eye was dressed with Polysporin ointment, an eye pad and a Hsaikh eye shield. Please also note, the patient receiveda drop of atropine 1% at the end of the case in the operative eye. The patient was positioned face down immediately postoperatively to prevent any folding of the retina in the macular region. Unless otherwise noted, there were no complications, no blood loss, no cultures obtained, no specimens removed, and no drains retained. Jean Mosher MD 10 16 AM / Jean Mosher MD mn Confirmation: [id number] Dictation ID: [id number] nesthesia Procedure Notes - COMPOSITE ENGINEER, SCAN 2 - 03/31/2014 1033 EST R PreOp - COMPOSITE ENGINEER, SCAN 2 - 03/31/2014 1018 EST Anesthesia Preprocedure Evaluation - COMPOSITE ENGINEER, SCAN 2 - 03/31/2014 0911 EST documented in this encounter Plan of Treatment Not on filedocumented as of this encounter Procedures Procedure Name Priority Date/Time Associated Comments Diagnosis ECG REPORT - SCANNED 04/06/2014 11:00 EST IMPLANT RECORD - 04/06/2014 11:00 SCANNED EST GLUCOSE, GLUCOMETER Routine 03/31/2014 7:05 EST R esults for this procedure are i n the results section. documented in this encounter Results (ABNORMAL) GLUCOSE, GLUCOMETER (03/31/2014 7:05 EST) Glucose, 104 (H) 70 - 100 [facility] Fingerstick mg/dl LABORATORY SERVICES Head Of Integrated Media ID [id number]: [facility] Test Performed by LABORATORY Nursing Services SERVICES Specimen Blood Performing Organization Address City/State/ZIP Code Phon e Number [facility] [address] [place] [address] SERVICES documented in this encounter Visit Diagnoses Not on filedocumented in this encounter Administered Medications Inactive Administered Medications - up to 3 most recent administrations Medication Order MAR Action Action Date Dose Rate Site cyclopentolate (CYCLOGYL) 1 % Given 03/31/2014 7:25 EST 1 Drop ophthalmic solution 1 Drop 1 Drop, left eye, PRE-OP Q 5 MINUTES, 3 doses, Starting on Sat03/31/14 at 0634, Until Sat03/31/14 at 0725, Other, vitreoretinal surgery, Routine, Pre-Op DOS Rx Approved Given 03/31/2014 7:19 EST 1 Drop Given 03/31/2014 7:13 EST 1 Drop flurbiprofen (OCUFEN) 0.03 % ophthalmic solution Given 03/31/2014 7:15 EST 1 Drop 1 Drop 1 Drop, left eye, PRE-OP Q 30 MINUTES, 4 doses, Starting on Sat03/31/14 at 0634, Until Sat03/31/14 at 1424, vitreoretinal surgery, Routine, Pre-Op DOS Rx Approved homatropine 5 % ophthalmic solution 1 Dr op Given 03/31/2014 7:16 EST 1 Drop 1 Drop, left eye, PRE-OP Q 30 MINUTES, 2 doses, Starting on Sat03/31/14 at 0634, Until Sat03/31/14 at 1424, vitreoretinal surgery, Routine, Pre-Op DOS Rx Approved lactated ringers (LR) infusion New Bag 03/31/2014 7:13 EST 30 mL/hr 30 mL/hr at 30 mL/hr, 30 mL/hr, intravenous, CONTINUOUS, Starting on Sat03/31/14 at 0700, Until Sat03/31/14 at 1424, Routine, Pre-Op DOS Rx Approved lactated ringers (LR) infusion Rate Documented 03/31/2014 10:21 EST 75 mL/hr at 75 mL/hr, intravenous, CONTINUOUS, Starting on Sat03/31/14 at 1000, Until Sat03/31/14 at 1424, Routine, Recovery (only) moxifloxacin (VIGAMOX) 0.5 % ophthalmic solution Given 03/31/2014 7:25 EST 1 Drop 1 Drop 1 Drop, left eye, PRE-OP Q 5 MINUTES, 3 doses, Starting on Sat03/31/14 at 0634, Until Sat03/31/14 at 0725, vitreoretinal surgery, Routine, Pre-Op DOS Rx Approved Given 03/31/2014 7:22 EST 1 Drop Given 03/31/2014 7:17 EST 1 Drop phenylephrine (MYDFRIN) 2.5 % ophthalmic Given 03/31/2014 7:[address] 1 Drop solution 1 Drop 1 Drop, left eye, PRE-OP Q 5 MINUTES, 3 doses, Starting on Sat03/31/14 at 0634, Until Sat03/31/14 at 0726, Irritation, vitreoretinal surgery, Routine, Pre-Op DOS Rx Approved Given 03/31/2014 7:23 EST 1 Drop Given 03/31/2014 7:18 EST 1 Drop tropicamide (MYDRIACYL) 1 % ophthalmic solution Given 03/31/2014 7:26 EST 1 Drop 1 Drop 1 Drop, left eye, PRE-OP Q 5 MINUTES, 3 doses, Starting on Sat03/31/14 at 0634, Until Sat03/31/14 at 0726, vitreoretinal surgery, Routine, Pre-Op DOS Rx Approved Given 03/31/2014 7:24 EST 1 Drop Given 03/31/2014 7:18 EST 1 Drop documented in this encounter Discontinued Medications Medication Sig Discontinue Reason Start Date End Date ibuprofen (MOTRIN) 800 mg Take 800 mg by 03/31/2014 tablet mouth daily. documented as of this encounter Historical Medications This list may reflect changes made after this encounter. Medication Sig Dispensed Refills Start Date End Date cyanocobalamin 500 mcg Take 500 mcg by 0 tablet mouth daily. losartan (COZAAR) 50 mg Take 50 mg by mouth 0 tablet daily. added in this encounter Active and Recently Administered Medications Times are shown in EST. Continuous Medication Order 03/29/2014 03/30/2014 03/31/2014 lactated ringers (LR) infusion (CANCELED) 0713 (New Bag - Provider: Kayley Navarrete RN)1021 (Completed - Provider: Agatha Page RN) at 30 mL/hr, 30 mL/hr, intravenous, CONT INUOUS, Starting Sat03/31/14 at 0700, Until Sat03/31/14 at 1424, Routine lactated ringers (LR) infusion (CANCELED) 1021 (Rate Documented - Provider: Agatha Page, RN)1150 (Completed - Provider: Agatha Page, RN) at 75 mL/hr, intravenous, CONTINUOUS, St arting Sat03/31/14 at 1000, Until Sat03/31/14 at 1424, Routine PRN Medication Order 03/29/2014 03/30/2014 03/31/2014 cyclopentolate (CYCLOGYL) 1 % ophthalmic solution 1 Drop (COMPLE KAMINI) 0713 (Given - Provider: Kayley Navarrete, RN)0719 (Given - Provider: Kayley Navarrete, RN)0725 (Given - Provider: Kayley Navarrete, RN) 1 Drop, left eye, PRE-OP Q 5 MINUTES, 3 doses, Starting Sat03/31/14 at 0634, Until Discontinued, Other, vitreoretinal surgery, Routine flurbiprofen (OCUFEN) 0.03 % ophthalmic solution 1 Drop (CANCELE D) 0715 (Given - Provider: Kayley Navarrete, RN) 1 Drop, left eye, PRE-OP Q 30 MINUTES, 4 doses, Starting Sat03/31/14 at 0634, Until Sat03/31/14 at 1424, vitreoretinal surgery, Routine homatropine 5 % ophthalmic solution 1 Drop (CANCELED) 0716 (Given - Provider: Kayley Navarrete, RN) 1 Drop, left eye, PRE-OP Q 30 MINUTES, 2 doses, Starting Sat03/31/14 at 0634, Until Sat03/31/14 at 1424, vitreoretinal surgery, Routine moxifloxacin (VIGAMOX) 0.5 % ophthalmic solution 1 Drop (COMPLET ED) 0717 (Given - Provider: Kayley Navarrete, ALINA)0722 (Given - Provider: Kayley Navarrete, RN)0725 (Given - Provider: Kayley Navarrete, RN) 1 Drop, left eye, PRE-OP Q 5 MINUTES, 3 doses, Starting Sat03/31/14 at 0634, Until Sat03/31/14 at 2359, vitreoretinal surgery, Routine phenylephrine (MYDFRIN) 2.5 % ophthalmic solution 1 Drop (COMPLE KAMINI) 0718 (Given - Provider: Kayley Navarrete, RN)0723 (Given - Provider: Kayley Navarrete, RN)0726 (Given - Provider: Kayley Navarrete, RN) 1 Drop, left eye, PRE-OP Q 5 MINUTES, 3 doses, Starting Sat03/31/14 at 0634, Until Discontinued, Irritation, vitreoretinal surgery, Routine tropicamide (MYDRIACYL) 1 % ophthalmic solution 1 Drop (COMPLETE D) 0718 (Given - Provider: Kayley Navarrete, ALINA)0724 (Given - Provider: Kayley Navarrete, RN)0726 (Given - Provider: Kayley Navarrete, RN) 1 Drop, left eye, PRE-OP Q 5 MINUTES, 3 doses, Starting Sat03/31/14 at 0634, Until Discontinued, vitreoretinal surgery, Routine documented in this encounter Orders Medications Ordered That Might Not Have Count Last Ord ered Date First Ordered Date Been Administered acetaZOLAMIDE (DIAMOX) injection 500 mg 1 03/31/20 14 acetaZOLAMIDE (DIAMOX) tablet 500 mg 1 03/31/2014 atropine 0.1 mg/mL syringe 0.4 mg 1 03/31/2014 diphenhydrAMINE (BENADRYL) injection 6.25 1 2013 mg fentaNYL citrate (PF) 50 mcg/mL injection 1 2013 25-100 mcg HYDROmorphone (DILAUDID) tablet 2 mg 1 03/31/2014 HYDROmorphone (PF) (DILAUDID) 1 mg/mL 1 03/31/2014 injection 0.2-1 mg nalOXone (NARCAN) injection 0.2 mg 1 03/31/2014 ondansetron (PF) (ZOFRAN) injection 2 mg 1 014 Procedures Count Last Ordered Date First Ordered Date ECG REPORT - SCANNED 1 04/06/2014 IMPLANT RECORD - SCANNED 1 04/06/2014 Nursing Count Last Ordered Date First Ordered Date APPLY WARMING BLANKET 1 03/31/[address] SEQUENTIAL COMPRESSION DEVICE 1 03/31/2014 Transfer Count Last Ordered Date First Ordered Date NOTIFY PPS PACU PATIENT DISCHARGE 1 03/31/2014 NOTIFY PPS PATIENT ARRIVAL IN PACU 1 03/31/2014 Discharge Count Last Ordered Date First Ordered Date DISCHARGE PATIENT 1 03/31/2014 documented in this encounter Care Teams Export Traffic Department Manager Relationship Specialty Start Date End Date Nayla Caputo MD PCP - General 05/05/[address] [place] [address] [place] [address] documented as of this encounter
--- OUTSIDE RECORDS SUMMARY | 2021-10-09 21:51 | XMS_ITS | Encounter Summary ---
:1940 Author Organization [facility] Address [address] [place] [address] Care Team Providers Name Role Phone Unavailable Primary Care Provider Unavailable Encounter Details Date Type Department Care Team Description 09/02/[address] [facility] Kamari Mosher MD Ophthalmology - [address] [address] [address], [place] [phone] (Wo rk) Social History Tobacco Use Types Packs/Day Years Used Date Never Assessed Sex Assigned at Date Recorded Not on file documented as of this encounter Consult Notes Jean Mosher MD - 12/27/2008 1333 EDT DIVISION OF OPHTHALMOLOGY [facility] CONSULTATION - 09/02/2007 Samm Laurent MD [facility] [address] [place] [address] Dear Yobani: It was my pleasure to consult on Ms. Nolasco retinal problem today. As you know, she has bilateral cataracts. An OCT done by you suggested a macular hole. Your plan is to docataract surgery in the right eye, with the understanding that her vision will likely not come back to 20/20. You asked for my thoughts on this issue. 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 She says she had her left eye patched when she was a youngster. 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 A posterior vitreous detachment is present in this eye. Cup-to-disc ratios are about 0.45 in both eyes. In the left eye, the fovea looks normal. I do not definitely see a posterior vitreous detachment in that eye. I have reviewed your OCT and the OCT is remarkable for what I would consider to be either a pseudohole or a lamellar hole. I find it a little bit difficult to interpret, because it has the cursor linesdrawn in, but it looks to me like there is a defect in the inner retina but, you will note that there is outer retinal tissue present and thus, I would call the picture a pseudohole picture, at least in the cuts that I have seen. Comment: Yobani, I would have no objections to you proceeding with cataract surgery in either eye, asthe patient does have significant cataracts in both eyes. I have told the patient that, even with a perfectly done cataract surgery in the right eye, it is unlikely, based upon her history of amblyopiaand based upon the presence of what looks like a lamellar hole, that she will get back to 20/20. It isreally difficult to know exactly how good this will make the vision in her right eye. She wonders if she could start with cataract surgery in the left eye. I told her I did not see any reason that this could not be done and that she should discuss it further with you. I suggested the patient see me again in three months just to make sure the situation is stable. I amglad to interface with you in any way in the perioperative period that you would like me to. Thanks for letting me consult on this nice lady. Sincerely, Signed by Jean Mosher MD 09/09/2007 08:45 Jean Mosher MD [facility] - Retina and Vitreous Service [address] [place] [address] - Jean Mosher MD - GLT Job ID: [id number] Doc ID: [id number] cc: MD Samm Guzman MD documented in this encounter Plan of Treatment Not on filedocumented as of this encounter Visit Diagnoses Not on filedocumented in this encounter
[2021-10-09 22:10] LABS: Abs Immature Grans 0.03 10^3/uL (0.0-0.06); Absolute Basophil Count 0.05 10^3/uL (0.0-0.2); Absolute Lymphocyte Count 1.84 10^3/uL (1.2-3.4); Absolute Monocyte Count 0.95 10^3/uL (0.1-0.8); Absolute Neutrophil Count 8.43 10^3/uL (1.2-6.7); Basophils % 0.4; Eosinophils % 1.7; HCT 37.2 % (36.0-46.0); HGB 12.1 g/dL (11.2-15.7); Immature Grans % 0.3; MCH 30.5 pg (27.0-33.0); MCHC 32.5 % (32.0-36.0); MCV 94 fL (80-95); MPV 9.6 fL (8.0-11.0); Monocytes % 8.3; Neutrophils % 73.3; Platelet Count 267 10^3/uL (130-400); RBC 3.97 10^6/uL (3.93-5.22); RDW 14.1 % (11.7-14.6); RDW-SD 48.5 fL
--- NOTE | 2021-10-09 22:30 | DI.CT_ITS ---
Exam(s) CT THORAX ABD/PEL CTA EXAM: CT THORAX ABD/PEL CTA CLINICAL HISTORY: left scapula to chest pain. TECHNIQUE: Imaging Protocol: Axial CT angiography was performed with multi-slice acquisition and m ulti-planar and/or 3D reconstructions. CONTRAST MATERIAL: Intravenous: Omnipaque 350 contrast volume:100 mL Oral: No COMPARISON: CT ABD PELVIS WITH CONTRAST from 12/26/2012 FINDINGS: CHEST: Tracheobronchial tree: Patent where visualized. Pulmonary parenchyma: No focal consolidating infiltrates are seen. Atelectasis and/or scarring is se en in the lung bases. No architectural distortion. Pulmonary Arteries: No evidence of filling defect to suggest pulmonary emboli. Mediastinum and Marly: No dominant adenopathy or fluid collection. The esophagus is grossly unremarkab le. Visualized thyroid: Unremarkable. Pleura: No effusion or pneumothorax. Heart: The heart is not dilated. Coronary artery calcifications are present. No pericardial effusion . Aorta: Thoracic aorta non-dilated. Atherosclerosis is present. There is no evidence of dissection. Soft Tissues: Unremarkable. Bones: Within normal limits for the patient's age. ABDOMEN AND PELVIS: Abdomen: Celiac axis/mesenteric arteries: No evidence of occlusion or significant stenosis. Renal Arteries: No evidence of occlusion or significant stenosis. There is a single renal artery per fusing each kidney. Atherosclerosis at the origins. Aorta: No evidence of occlusion or significant stenosis. No aneurysm or dissection. Atherosclerosi s. Pelvis: Iliac Arteries: No evidence of occlusion or significant stenosis. Mild atherosclerosis. Common Femoral Arteries: No evidence of occlusion or significant stenosis. Mild atherosclerosis. ABDOMEN: Liver: Normal density. No measurable mass. Gallbladder and Biliary Tract: No radiodense calculus or dilation. Pancreas: Normal density, no abnormal calcifications or inflammatory process. Spleen: Normal. Adrenals: No masses seen. Kidneys: Normal size, contour and axis. No radiodense stones or obstructive uropathy. No masses seen. Bowel: No obstruction or bowel wall thickening. No evidence of appendicitis. There is diverticulosis seen in the colon but no evidence of acute diverticulitis. Peritoneal Cavity: No ascites, collection or mesenteric inflammatory response. No free air. Lymph Nodes: Within normal limits. Bones: Within normal limits for the patient's age. There is pelvic artifact secondary to the patient 's bilateral total hip replacements. Soft Tissues: Unremarkable. PELVIS: Bladder: Symmetric distention, no gross wall thickening. Reproductive Organs: Unremarkable as visualized. Lymph Nodes: Within normal limits. Bones: Within normal limits for the patient's age. IMPRESSION: 1. No acute vascular abnormalities. No evidence of aortic dissection or aneurysm. 2. No evidence of a pulmonary embolus. 3. Diverticulosis in the colon but no evidence of acute diverticulitis. 4. No acute pulmonary process. RADIATION DOSE DELIVERED: 1,272.84mGy.cm Total DLP DATA REPOSITORY: All CT scans at this facility are submitted to the National Radiology Data Registry (NRDR) Dose Index Registry (DIR) with the [employer] (ACR). RADIATION OPTIMIZATION: All CT scans at this facility use at least one of these dose optimization te chniques: automated exposure control; mA and/or kV adjustment per patient size (includes targeted exa ms where dose is matched to clinical indication); or iterative reconstruction.
[2021-10-09 22:33] LABS: ALT 21 U/L (14-59); AST 12 U/L (15-37); Albumin 3.8 g/dL (3.4-5.0); Alkaline Phosphatase 77 U/L (46-116); Anion Gap 10.9 mmol/L (3-11); BUN 29 mg/dL (7-18); Bilirubin, Total 0.4 mg/dL (0.2-1.0); CO2 22.1 mmol/L (21.0-32.0); CREATININE 1.4 mg/dL (0.55-1.02); Chloride 102 mmol/L (98-107); Estimated GFR 36.27 (mL/min/1.73m2); Glucose 149 mg/dL (74-106); Potassium 4.9 mmol/L (3.5-5.1); Sodium 135 mmol/L (136-145); Total Protein 7.4 g/dL (6.4-8.2); Troponin I < 50 ng/L (<or=60)
[2021-10-09 22:50] LABS: NT-proBNP 110 pg/mL (<300)
[2021-10-09] MEDS: Omnipaque 350 MG/ML 100 ML BTL IJ (23:13)
[2021-10-09] MEDS: Normal Saline Flush 10 ML SYR IVP (23:16)
--- NOTE | 2021-10-09 23:34 | ED.GENADUL_ITS ---
Discharge Plan Disposition Patient Disposition: STILL A PATIENT Condition: Stable Discharge Details Chief Complaint: Chest Pain Primary Care Provider: Cecilia Curiel ED Provider: Eliezer Rascon Home Meds and New Rx's Prescriptions: No Action acetaminophen 500 mg capsule 1,000 mg PO BID gabapentin 300 mg capsule 300 mg PO BID Qty: 180 3RF losartan 50 mg tablet 50 mg PO DAILY Qty: 90 4RF metformin 500 mg tablet 500 mg PO BID Qty: 180 4RF Rx Instructions: 1 TAB BID rosuvastatin [Crestor] 10 mg tablet 10 mg PO DAILY Qty: 90 4RF spironolactone 25 mg tablet 25 mg PO BID Qty: 180 4RF (DME) OneTouch Ultra Test 1 EACH strip 1 ea Miscellaneous DAILY Qty: 100 Rx Instructions: dx: E11.9 on oral meds (DME) lancets [OneTouch Delica Lancets] 1 EACH misc 1 ea Intradermal DAILY Qty: 100 Rx Instructions: DX: E11.9 on oral meds metronidazole 45 GM gel 1 applic Topical DAILY Qty: 45 sennosides [senna] 8.6 mg tablet 17.2 mg PO HS Qty: 180 4RF Rx Instructions: 2 TAB HS sulfacetamide sodium-sulfur 10-5 % (w/v) lotion 1 applic Topical HS PRN (Reason: rash) Qty: 25 6RF Medical Decision Making 2339 --81-year-old female here with left scapular pain since last night, also with single episode of pain radiating from her left scapula to chest with asso ciated nausea today. Patient is hypertensive on arrival. She is saturating well in no respiratory distress. Patient does have focal tenderness over her left thoracic paraspinal area that seems to reproduce her pain. There is no associated rash in the area. I suspect musculoskeletal etiology but I am concerned given hypertension and radiation to her chest that she could have thoracic aortic dissection. Plan to obtain CTA of the thorax with runoff. Given risk factors, consider ACS. EKG was reviewed and interpreted by me: Please see report, sinus rhythm 93 bpm with borderline prolonged DC of 211. Initial troponin negative. Plan to obtain delta troponin. Lab Data Lab results reviewed: Yes I reviewed the patient's lab results. Labs: Laboratory Tests Range/Units 10/09/21 10/09/21 10/09/21 22:05 22:05 22:05 WBC (4.4-10.8) 10^3/uL 11.50 H RBC (3.93-5.22) 10^6/uL 3.97 Hgb (11.2-15.7) g/dL 12.1 Hct (36.0-46.0) % 37.2 MCV (80-95) fL 94 MCH (27.0-33.0) pg 30.5 MCHC (32.0-36.0) % 32.5 RDW (11.7-14.6) % 14.1 Plt Count (130-400) 10^3/uL 267 MPV (8.0-11.0) fL 9.6 Immature Gran % 0.3 Neutrophils % 73.3 Lymphocytes % 16.0 Monocytes % 8.3 Eosinophils % 1.7 Basophils % 0.4 Nucleated RBC % (0.0-0.3) % 0.0 Absolute Neutrophils (1.2-6.7) 10^3/uL 8.43 H Absolute Lymphocytes (1.2-3.4) 10^3/uL 1.84 Absolute Monocytes (0.1-0.8) 10^3/uL 0.95 H Absolute Eosinophils (0.0-0.7) 10^3/uL 0.20 Absolute Basophils (0.0-0.2) 10^3/uL 0.05 Sodium (136-145) mmol/L 135 L Potassium (3.5-5.1) mmol/L 4.9 Chloride (98-107) mmol/L 102 Carbon Dioxide (21.0-32.0) mmol/L 22.1 Anion Gap (3-11) mmol/L 10.9 BUN (7-18) mg/dL 29 H Creatinine (0.55-1.02) mg/dL 1.4 H Estimated GFR/1.73 m2 (mL/min/1.73m2) 36.27 Glucose (74-106) mg/dL 149 H Calcium (8.5-10.1) mg/dL 9.0 Magnesium (1.8-2.4) mg/dL 2.0 Total Bilirubin (0.2-1.0) mg/dL 0.4 AST (15-37) U/L 12 L ALT (14-59) U/L 21 Alkaline Phosphatase (46-116) U/L 77 Troponin I (<or=60) ng/L < 50 NT-Pro-B Natriuret Pep (<300) pg/mL 110 Total Protein (6.4-8.2) g/dL 7.4 Albumin (3.4-5.0) g/dL 3.8 HPI General Mode of arrival: ambulatory . Date/Time Provider Initiated Documentation: 10/09/21 21:56 . Limitations to Documentation: no limitations . Information obtained by: patient and family . HPI Narrative: 81yo f with history of HTN, hyperlipidemia, diabetes, here with chief complaint of back pain. Patient notes that she has had persistent left scapular pain that started last night. Today she had an episode where pain seemed to radiate into her left chest with associated nausea. This has since resolved but she con tinues to have discomfort in her scapula. Pain is worse with deep inspiration and certain positions. Patient also notes some lower extremity edema bilaterally over the past few days. Related Data Home Medications Medication Instructions Recorded Confirmed blood sugar diagnostic (CPG SoftTouch #100 strips 02/25/15 10/09/21 Ultra Test strips) lancets 33 gauge (OneTouch Delica #100 ea 02/25/15 10/09/21 Lancets) metronidazole 0.75 % topical gel 1 applic topical DAILY #45 grams 02/27/16 10/09/21 sennosides 8.6 mg tablet (senna) 17.2 mg PO HS #180 tab-caps 04/06/19 10/09/21 acetaminophen 500 mg capsule 1,000 mg PO BID 03/15/20 10/09/21 sulfacetamide sodium-sulfur 10 %-5 1 applic topical HS PRN rash #25 04/19/20 10/09/21 % (w/v) lotion grams gabapentin 300 mg capsule 300 mg PO BID #180 tab-caps 12/15/20 10/09/21 losartan 50 mg tablet 50 mg PO DAILY #90 tab-caps 12/15/20 10/09/21 metformin 500 mg tablet 500 mg PO BID #180 tab-caps 12/15/20 10/09/21 rosuvastatin 10 mg tablet (Crestor) 10 mg PO DAILY #90 tabs 12/15/20 10/09/21 spironolactone 25 mg tablet 25 mg PO BID #180 tabs 09/16/21 07/11/22 Previous Rx's Medication Instructions Recorded sennosides 8.6 mg tablet (senna) 17.2 mg PO HS #180 tab-caps 04/06/19 sulfacetamide sodium-sulfur 10 %-5 1 applic topical HS PRN rash #25 04/19/20 % (w/v) lotion grams gabapentin 300 mg capsule 300 mg PO BID #180 tab-caps 12/15/20 losartan 50 mg tablet 50 mg PO DAILY #90 tab-caps 12/15/20 metformin 500 mg tablet 500 mg PO BID #180 tab-caps 12/15/20 rosuvastatin 10 mg tablet (Crestor) 10 mg PO DAILY #90 tabs 12/15/20 spironolactone 25 mg tablet 25 mg PO BID #180 tabs 12/15/20 Allergies Allergy/AdvReac Type Severity Reaction Status Date / Time amoxicillin trihydrate Allergy Severe RASH Verified 10/09/21 21:50 [From Augmentin] Penicillins Allergy Severe Skin Rash Verified 10/09/21 21:50 potassium clavulanate Allergy Severe RASH Verified 10/09/21 21:50 [From Augmentin] aspirin AdvReac Intermediate CONFUSION, Verified 10/09/21 21:50 TAKES IBUPROFEN OKAY pravastatin AdvReac Intermediate MYALGIAS Verified 10/09/21 21:50 simvastatin AdvReac Intermediate MUSCLE PAIN Verified 10/09/21 21:50 CO-Q10 AdvReac Mild MUSCLE PAIN Uncoded 10/09/21 21:50 General Stated Complaint: GenMedical KELLEN: 4 Review of Systems All systems reviewed & are unremarkable except as noted in HPI and below Constitutional Constitutional: Denies fever(s) Cardiovascular Cardiovascular: Reports chest pain Respiratory Respiratory: Denies cough PFSH All Active Problems Parotid mass (Acute) DNR (do not resuscitate) (Acute) Physician orders for life-sustaining treatment (POLST) form indicates patient wish for gl-xbg-ndyoiygtefs status (Acute) Vitamin B12 deficiency (Acute 12/01/13) Primary osteoarthritis involving multiple joints (Acute) DJD knees and right hip Malignant neoplasm of skin (Acute) [id number] Hyperlipidemia (Acute) Essential hypertension (Acute 12/24/12) Diverticulosis of colon without diverticulitis (Acute 01/12/13) 12/12 episode diverticulitis Diabetes mellitus (Acute 07/17/12) Restless leg syndrome (Chronic) Rosacea (Chronic) Malignant melanoma of face (Chronic) Macular degeneration (Chronic) Constipation due to pain medication (Chronic) GERD (gastroesophageal reflux disease) (Chronic) Medical History Aftercare following explantation of hip joint prosthesis (06/27/14) Aftercare for long-term (current) use of antibiotics (06/27/14) B12 deficiency Enlarged lymph node Infection and inflammatory reaction due to internal joint prosthesis (06/27/14) 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 Sister No problems noted. Brother , 47 Non-Hodgkin's lymphoma Brother No problems noted. Brother No problems noted. Maternal Grandfather No problems noted. Paternal Grandfather No problems noted. Maternal Grandmother Diabetes Breast cancer Paternal Grandmother No problems noted. Son No problems noted. Son No problems noted. Daughter No problems noted. Daughter No problems noted. Daughter No problems noted. Daughter No problems noted. Social History Smoking/Tobacco Use Status: Never Second Hand Exposure: Yes Smoking risk assessment performed?: Yes Alcohol Intake: current Alcohol Intake frequency: holidays/special occasions only Alcohol type: beer, wine and hard liquor Drug use: Socially Household members: spouse Communication Needs: Hard of Hearing Do you need help understanding health information?: Never Pets and animals: No Sexually active: Yes Do you think of yourself as: straight/heterosexual Current gender identity: female What is your relationship status?: How often do you talk on the phone with friends or family?: once per week How often do you get together with friends or relatives?: decline to answer How often do you attend buddhist or episcopalian services?: decline to answer Do you belong to any clubs or organized social groups?: yes Panel score (0-1 are the most socially isolated patients): 2 Duration: < 15 minutes/day Frequency: 1-2 times per week Effie/Latter Day: Protestant Special effie needs: Yes Seatbelt use: always Helmet use: Yes Helmet use: always Drive intox or ride w/intox bobtail driver: No Do you feel safe at home: Yes Do you feel safe in your relationship?: Yes Victim of physical abuse: No Victim of emotional abuse: No Victim of sexual abuse: No Would you like helpful sources: No Exam Const General: cooperative and no acute distress HENMT Mouth: moist mucous membranes Eyes Conjunctivae: normal conjunctivae Neck Neck: trachea midline Resp Auscultation: clear to auscultation bilaterally, no rales, no rhonchi and no wheezes Cardio Rate: regular rate and not tachycardic Rhythm: regular rhythm GI Palpation: soft, not firm, no guarding, no masses, not rigid and nontender Back/Spine/Pelvis Back: back tenderness (left thoracic paraspinal over scapula ) Skin General skin exam: no rashes or lesions noted Neuro General: patient alert, patient awake and tone normal Extrem General: no calf tenderness and edema Laterality: bilateral (trace) Psych Appearance: grossly normal Mental Status: mental status grossly normal Speech and Movement: speech and movement normal Course Vital Signs Vital signs: Vital Signs Temperature 36.6 C 10/09/21 21:45 Pulse 87 10/09/21 21:45 Respiratory Rate 16 10/09/21 21:45 Blood Pressure 151/71 H 10/09/21 21:45 Pulse Oximetry 98 10/09/21 21:45 Temperature 36.6 C 10/09/21 21:45 Temperature Source Temporal Artery Scan 10/09/21 21:45 Pulse 87 10/09/21 21:45 Respiratory Rate 16 10/09/21 21:45 Respiratory Effort 10/09/21 21:45 Blood Pressure 151/71 H 10/09/21 21:45 Blood Pressure Position Sitting 10/09/21 21:45 Pulse Oximetry 98 10/09/21 21:45 Oxygen Delivery Method Room Air 10/09/21 21:45 Oxygen Flow Rate 0 10/09/21 21:45 Pain Level 10 10/09/21 21:45 Lab/Test Results Lab/Test Results: Laboratory Tests Range/Units 10/09/21 10/09/21 10/09/21 22:05 22:05 22:05 WBC (4.4-10.8) 10^3/uL 11.50 H RBC (3.93-5.22) 10^6/uL 3.97 Hgb (11.2-15.7) g/dL 12.1 Hct (36.0-46.0) % 37.2 MCV (80-95) fL 94 MCH (27.0-33.0) pg 30.5 MCHC (32.0-36.0) % 32.5 RDW (11.7-14.6) % 14.1 Plt Count (130-400) 10^3/uL 267 MPV (8.0-11.0) fL 9.6 Immature Gran % 0.3 Neutrophils % 73.3 Lymphocytes % 16.0 Monocytes % 8.3 Eosinophils % 1.7 Basophils % 0.4 Nucleated RBC % (0.0-0.3) % 0.0 Absolute Neutrophils (1.2-6.7) 10^3/uL 8.43 H Absolute Lymphocytes (1.2-3.4) 10^3/uL 1.84 Absolute Monocytes (0.1-0.8) 10^3/uL 0.95 H Absolute Eosinophils (0.0-0.7) 10^3/uL 0.20 Absolute Basophils (0.0-0.2) 10^3/uL 0.05 Sodium (136-145) mmol/L 135 L Potassium (3.5-5.1) mmol/L 4.9 Chloride (98-107) mmol/L 102 Carbon Dioxide (21.0-32.0) mmol/L 22.1 Anion Gap (3-11) mmol/L 10.9 BUN (7-18) mg/dL 29 H Creatinine (0.55-1.02) mg/dL 1.4 H Estimated GFR/1.73 m2 (mL/min/1.73m2) 36.27 Glucose (74-106) mg/dL 149 H Calcium (8.5-10.1) mg/dL 9.0 Magnesium (1.8-2.4) mg/dL 2.0 Total Bilirubin (0.2-1.0) mg/dL 0.4 AST (15-37) U/L 12 L ALT (14-59) U/L 21 Alkaline Phosphatase (46-116) U/L 77 Troponin I (<or=60) ng/L < 50 NT-Pro-B Natriuret Pep (<300) pg/mL 110 Total Protein (6.4-8.2) g/dL 7.4 Albumin (3.4-5.0) g/dL 3.8
[2021-10-10] VITALS (11 sets, daily range): BP systolic 132–151; BP diastolic 68–84; PULSE 78–90; RESP 17–23; TEMP 36.6; O2SAT 93–98
[2021-10-10] MEDS: Lidocaine 5% Patch 1 PATCH TP (00:47)
[2021-10-10 01:06] LABS: Troponin I < 50 ng/L (<or=60)
--- NOTE | 2021-10-10 01:07 | DI.VRAD_ITS ---
PROCEDURE INFORMATION: Exam: CTA Chest With Contrast CTA Abdomen and Pelvis With Contrast Exam date and time: 10/09/2021 11:14 PM Age: 81 years old Clinical indication: Radiating; Abdominal pain and other: Back pain; Prior surgery; Surgery date: 6+ months; Surgery type: Hip replacements; Patient HX: Left scapula to chest pain, back pain, vomiting TECHNIQUE: Imaging protocol: Computed tomographic angiography of the chest with contrast. Computed tomographic angiography of the abdomen and pelvis with contrast. 3D rendering (Not supervised by radiologist): MIP and/or 3D reconstructed images were created by the technologist. Radiation optimization: All CT scans at this facility use at least one of these dose optimization techniques: automated exposure control; mA and/or kV adjustment per patient size (includes targeted exams where dose is matched to clinical indication); or iterative reconstruction. Contrast material: OMNIPAQUE 350; Contrast volume: 100 ml; Contrast route: INTRAVENOUS (IV); COMPARISON: CR CHEST 2 VIEWS PA,LAT 04/18/2017 1:31 PM, CT abdomen pelvis 12/26/2012 FINDINGS: VASCULATURE: Pulmonary arteries: The pulmonary arteries enhance appropriately with no evidence of pulmonary embolism. Mild dilatation of the central pulmonary arteries suggesting mild pulmonary arterial hypertension. Aorta: The thoracic aorta demonstrates moderate ectasia and calcific atherosclerosis without austin aneurysm, and no evidence of dissection. No mediastinal hematoma. The abdominal aorta is normal in caliber without evidence of aneurysm or dissection, demonstrating moderate-severe calcific atherosclerosis without stenosis. Celiac trunk and mesenteric arteries: Celiac artery demonstrates mild ostial calcific plaque without significant stenosis. The SMA and its major branch vessels are normal. The CAEYTANO is patent. Renal arteries: Post ostial mixed plaque in the right main renal artery produces moderate stenosis estimated at 60%. Left renal artery demonstrates minor proximal calcific plaque without stenosis. Right iliac arteries: The right iliac arteries demonstrate minor calcific plaque in the distal common iliac distribution and right internal iliac artery. Right external iliac artery is unremarkable. Left iliac arteries: Left iliac arteries demonstrate minimal calcific plaque but were otherwise unremarkable. Thyroid: The visualized thyroid gland demonstrates no gross abnormality. CHEST: Lungs: No acute tracheobronchial abnormalities. Mild atelectasis in the lung bases. There are numerous very small 1-2 mm peripheral perilymphatic lung nodules present in the upper lobes bilaterally. These are nonspecific in nature. Primary differential considerations include sarcoidosis, pneumoconiosis (silicosis or coal worker's pneumoconiosis), amyloidosis, lymphocytic interstitial pneumonia. Pleural spaces: Mild bilateral apical pleural/parenchymal scarring. No pleural effusion. No pneumothorax. Heart: Heart size normal. Moderate coronary artery calcification. No pericardial effusion. Mediastinal space: The esophagus is largely contracted but demonstrates no gross abnormality. The visualized distal esophagus is largely contracted without gross abnormality. ABDOMEN AND PELVIS: Liver: Mild fatty infiltration of the liver. Normal contour. No mass lesions. No intrahepatic biliary ductal dilatation. Gallbladder and bile ducts: Gallbladder assessment limited by motion. Questionable mild adjacent stranding may be due to motion artifact, correlate clinically for evidence of cholecystitis, consider sonographic assessment as clinically indicated. Nondilated bile ducts. Pancreas: Mild pancreatic atrophy without acute abnormality. No pancreatic ductal dilatation. Spleen: Normal. No splenomegaly. Adrenal glands: Normal. No adrenal mass. Kidneys and ureters: Mild bilateral symmetrical perinephric stranding which is nonspecific and age indeterminate. This may relate to perirenal scarring or edema. Clinical/laboratory correlation is recommended to exclude evidence of medical renal disease. Slight caliectasis bilaterally with mild left pelviectasis but no ureterectasis on either side, unchanged from 12/26/2012. Numerous intrapelvic calcifications are seen bilaterally consistent with phleboliths, unchanged from 2013. No urolithiasis is evident. Stomach and bowel: The stomach is unremarkable. The small bowel is nondilated with no gross abnormality. Moderate diverticulosis involving the distal colon without evidence of acute diverticulitis. Appendix: The appendix is not definitively identified. No secondary signs of appendicitis. Intraperitoneal space: No free fluid or air. Urinary bladder: No gross urinary bladder abnormalities although visualization is limited by streak artifacts. Reproductive: Unremarkable as visualized. Lymph nodes: No supraclavicular or axillary adenopathy. No mediastinal or hilar adenopathy. No adenopathy. Bones/joints: No acute osseous abnormalities are identified. Osteopenia. Incidental vertebral hemangioma measuring 18 mm at T6. No acute osseous abnormalities. Osteopenia. Bilateral bipolar hip arthroplasties without gross hardware complication. Moderate lumbar spondylosis. Soft tissues: The soft tissues of the chest wall demonstrate no acute abnormality. IMPRESSION: 1. No acute vascular abnormalities. No evidence of arterial dissection or aneurysm. 2. Mild changes of pulmonary arterial hypertension. 3. Moderate coronary artery calcification. 4. Small peripheral perilymphatic lung nodules in the upper lobes measuring 1-2 mm in size, nonspecific in nature. Please see differential considerations above. 5. Moderate stenosis in the post ostial right main renal artery estimated at 60%. 6. Mild fatty infiltration of the liver. 7. Questionable mild stranding adjacent to the gallbladder which may be due to motion artifact, correlate clinically for cholecystitis, consider sonographic assessment as clinically indicated. 8. Symmetrical mild perinephric stranding, nonspecific, new since 2013. Correlate clinically for medical renal disease. 9. Mild chronic bilateral caliectasis and left pelviectasis is unchanged from 2013. No urolithiasis is evident. Numerous bilateral intrapelvic phleboliths are unchanged. 10. Diverticulosis without diverticulitis. 11. Additional nonemergent findings detailed above. Dictated and Authenticated by: Jayjay Santana MD. Ordering:DAVE Martins MD
--- NOTE | 2021-10-10 01:17 | W.EDPROG ---
Date of service: 10/10/21 Time of Service: 01:18 Medical Decision Making Patient resting comfortably no acute distress, no further nausea or vomiting, abdomen soft nontender nondistended. Some relief of back discomfort. Incidental findings on CT scan including possible evidence of irritation to the gallbladder however no further vomiting no right upper quadrant pain nontender abdominal exam afebrile nontoxic. Patient has close follow-up with her primary care physician have encouraged repeat examination this week and possible outpatient ultrasound. Given strict return precautions and home care instructions. Sign Out Sign Out Data: Sign Out Comment: followup CTA and delta trop and reassess patient for disposition Last updated by Eliezer Rascon MD at 10/09/21 23:45 Discharge Plan Disposition Patient Disposition: HOME Condition: Improving Discharge Details Clinical Impression: Back pain Primary Care Provider: Cecilia Curiel ED Provider: Samm Yanes Home Meds and New Rx's Prescriptions: New lidocaine [Lidoderm] 5 % adhesive patch,medicated 1 patch topical DAILY Qty: 15 0RF Rx Instructions: leave on most painful area for up to 12 hrs No Action acetaminophen 500 mg capsule 1,000 mg PO BID gabapentin 300 mg capsule 300 mg PO BID Qty: 180 3RF losartan 50 mg tablet 50 mg PO DAILY Qty: 90 4RF metformin 500 mg tablet 500 mg PO BID Qty: 180 4RF Rx Instructions: 1 TAB BID rosuvastatin [Crestor] 10 mg tablet 10 mg PO DAILY Qty: 90 4RF spironolactone 25 mg tablet 25 mg PO BID Qty: 180 4RF (DME) OneTouch Ultra Test 1 EACH strip 1 ea Miscellaneous DAILY Qty: 100 Rx Instructions: dx: E11.9 on oral meds (DME) lancets [OneTouch Delica Lancets] 1 EACH misc 1 ea Intradermal DAILY Qty: 100 Rx Instructions: DX: E11.9 on oral meds metronidazole 45 GM gel 1 applic Topical DAILY Qty: 45 sennosides [senna] 8.6 mg tablet 17.2 mg PO HS Qty: 180 4RF Rx Instructions: 2 TAB HS sulfacetamide sodium-sulfur 10-5 % (w/v) lotion 1 applic Topical HS PRN (Reason: rash) Qty: 25 6RF Discharge Instructions Instructions: Back Pain (ED) Additional Instructions: Please follow-up with your primary care physician to discuss further testing which may include further blood testing and possible ultrasound. Please discuss the results of your CT scan with your primary care physician. Please return to the emergency department if you develop worsening pain nausea vomiting fevers or other abnormal symptoms.
== END 2021-10-10 01:30 | disposition home or self-care (01) ==
PROVIDERS: Student in an Organized Health Care Education/Training Program; Emergency Provider Emergency Medicine; PCP Family Medicine
DX: M54.6 Pain in thoracic spine (principal); R07.9 Chest pain, unspecified; I10 Essential (primary) hypertension; E11.9 Type 2 diabetes mellitus without complications; Z79.84 Long term (current) use of oral hypoglycemic drugs; Z77.22 Contact with and (suspected) exposure to environmental tobacco smoke (acute) (chronic)
CPT/HCPCS: 36415; 71275; 80053; 93005; 99285; 74174; 83735; 83880; 84484; 85025; 93010; 99284; J3490

== ENCOUNTER 2021-10-16 07:48 | Emergency (ER) | payer MEDICARE, OTHER, SELFPAY ==
[2021-10-16] VITALS (10 sets, daily range): BP systolic 119–148; BP diastolic 64–80; PULSE 68–84; RESP 16–18; TEMP 36.3–36.7; O2SAT 95–98
--- NOTE | 2021-10-16 08:15 | RT.EKG_ITS ---
APPROVED REPORT Exam: Resting ECG Reason for Exam: LUQ pain Patient Location: E HR:74 bpm ECG Measurements Heart Rate [address] 199 P 10 QRSd 113 QRS 64 QT 377 T 14 QTc 419 Conclusion Sinus rhythm...normal P axis, V-rate 60- 99 Incomplete right bundle branch block...QRSd >112, terminal axis(90,270) Low voltage, precordial leads...precordial leads <1.0mV no STEMI, non-diagnostic EKG I have reviewed and interpreted ECG and agree with software generated interpretation.
--- NOTE | 2021-10-16 08:15 | DI.RAD_ITS ---
Exam(s) XR CHEST 2V PA LATERAL EXAM: XR CHEST 2V PA LATERAL CLINICAL HISTORY: LUQ discomfort, worse with inspiration TECHNIQUE: 2D digital imaging was performed. COMPARISON: CR CHEST 2 VIEWS PA,LAT from 04/18/2017 FINDINGS: MEDIASTINUM: Normal. HEART: Normal. Aorta calcified. PULMONARY VASCULATURE: Normal. LUNGS: Suboptimally inflated but clear. PLEURAL SPACE: No pleural effusion or pneumothorax. BONE:degenerative changes. IMPRESSION: No acute abnormality. DATA REPOSITORY: RADIATION DOSE DELIVERED:
--- NOTE | 2021-10-16 08:19 | ED.GENADUL_ITS ---
Discharge Plan Disposition Patient Disposition: HOME Condition: Stable Discharge Details Clinical Impression: Back pain Primary Care Provider: Cecilia Curiel ED Provider: Alexa Harris Home Meds and New Rx's Prescriptions: Continued acetaminophen 500 mg capsule 1,000 mg PO BID gabapentin 300 mg capsule 300 mg PO BID Qty: 180 3RF losartan 50 mg tablet 50 mg PO DAILY Qty: 90 4RF metformin 500 mg tablet 500 mg PO BID Qty: 180 4RF Rx Instructions: 1 TAB BID rosuvastatin [Crestor] 10 mg tablet 10 mg PO DAILY Qty: 90 4RF (DME) OneTouch Ultra Test 1 EACH strip 1 ea Miscellaneous DAILY Qty: 100 Rx Instructions: dx: E11.9 on oral meds (DME) lancets [OneTouch Delica Lancets] 1 EACH misc 1 ea Intradermal DAILY Qty: 100 Rx Instructions: DX: E11.9 on oral meds metronidazole 45 GM gel 1 applic Topical DAILY Qty: 45 sennosides [senna] 8.6 mg tablet 17.2 mg PO HS Qty: 180 4RF Rx Instructions: 2 TAB HS sulfacetamide sodium-sulfur 10-5 % (w/v) lotion 1 applic Topical HS PRN (Reason: rash) Qty: 25 6RF lidocaine [Lidoderm] 5 % adhesive patch,medicated 1 patch topical DAILY Qty: 15 0RF Rx Instructions: leave on most painful area for up to 12 hrs Discharge Instructions Instructions: Back Pain (ED) Additional Instructions: As discussed, your evaluation is reassuring here today. Your symptoms are most likely associated with muscle spasm. Sadly, the pain can spread and change to the course of time. It is typically worse when he first starts moving but does improve with movement over time. Please encourage hydration. Please encourage frequent short walks. May use Tylenol and/or ibuprofen as needed for discomfort. You may use lidocaine patches to help with discomfort. I did schedule you for a follow-up appointment tomorrow at 2 PM. Your urine culture is pending, if it is suggestive of infection we will call you to discuss antibiotics. However, if you are not having any change in urinary habits or pain with urination, will hold off on antibiotics at this time. If you develop fever/chills, increased pain, shortness of breath or other new/worsening symptoms please seek care urgently once again. Stand Alone Forms: Physical Therapy Referral Referrals: Cecilia Curiel MD, [place] [Primary Care Provider] - 10/17/21 2:00 pm Discharge Data Discharge Date/Time-TO BE ENTERED AT DEPARTURE: 10/16/21 11:56 Medical Decision Making Patient is a pleasant 81-year-old female, accompanied by significant other, with chief complaint left upper quadrant pain. Past medical history is pertinent for hypertension, diverticulosis, diabetes mellitus, GERD. Patient was seen here 1 week ago for pain in the scapular region. Patient did have cardiac work-up as well as CT to evaluate for potential aortic abnormality. These were without acute findings. History and exam is much more consistent at that time with muscular source. Patient was encouraged to have close follow-up with primary c are. She was noted on imaging to have some irritation to the gallbladder. Patient denies any change in her discomfort associated with eating. She denies any fevers or chills. No change in bowel or bladder habits. States that when she is at rest she has absolutely no pain but then when she has any type of slight movement she gets excruciating pain. Pain can radiate from the back around towards the front. Since she was here last, patient reports the pain is different. She does report that she had a brief episode of lower abdominal pain last night but that has since resolved. She has not noticed any rash. States that this does not feel like when she had shingles historically. Pain does not worsen when she is exerting over a longer period of time such as when she is walking compared to when she goes to sit up in bed. She denies any chest pain, shortness of breath. Endorses some nausea associated with significant pain but denies any vomiting. Typically takes ibuprofen daily to help with chronic discomfort, has not taken it as of yet this morning. Patient denies any recent weight loss, reports that she is gained some weight. She is being followed by Dr. Cabrera for an enlarged lymph node, has an appointment tomorrow. On exam, patient appears nontoxic. Her blood pressure is initially elevated 146/80 but when I went into the room with the patient her blood pressure was down to 119/64. She has some crackles in the bases of the left lower lobe, lungs are otherwise clear. Normal cardiac auscultation. Abdominal exam is pertinent for discomfort with palpation of the left upper quadrant but no peritoneal findings. No rashes appreciated. No breast tenderness. No pulsatile mass. She has 2+ distal pulses equal bilaterally in upper and lower extremities and no pedal edema. No calf tenderness. I did review the patient's chart. She had a CTA chest abdomen pelvis without any notable acute abnormality. Patient denies any alcohol intake. Her left upper quadrant pain does have a concern for potential pancreatitis. She does have a history of diverticulosis but I find diverticulitis less likely as she did have a CT of the abdomen recently without any abnormal findings. Her exam is not consistent with shingles. ACS is on the differential but quite low, particularly if this does not worsen with more extensive exertion and really seems more positionally based. At this time, most likely to be musculoskeletal source. Aortic etiology such as aneurysm or dissection has been ruled out. Also consider something like a stone. Will obtain baseline blood work, EKG, urinalysis. With the crackles heard at the left lower base, will obtain a chest x-ray for comparison from recent CT scan. Patient has not had any cough. FINDINGS: MEDIASTINUM: Normal.? HEART: Normal. ? Aorta calcified. PULMONARY VASCULATURE: Normal. LUNGS: Suboptimally inflated but clear. ? PLEURAL SPACE: No pleural effusion or pneumothorax. BONE:degenerative changes.? IMPRESSION: No acute abnormality.? Labs reviewed. No leukocytosis. Stable H&H. CMP significant for creatinine of 1.3 which appears to be patient's baseline. Lipase within normal limits. Troponin within normal limits. As the pain has been persistent for so long, I do not feel that repeat troponin is warranted at this time. Urinalysis pending. UA pertient for small leukocyte esterase, rare bacteria. As patient has no increased frequency/urgency, dysurea, will hold off on abx until culture completed. More concerned for muscular pain with spasm based on her description of waves of discomfort. Will give small dose of muscle relaxant. Want to touch base with patients PCP, Dr. Snow on vacation, will speak with Dr. Mackenzie. Consulted with Dr. Mackenzie about pain management for this patient who is here for recurrent pain, He advised against muscle relaxer, feels that this will increase risk of fall/adverse issue too much. Discussed with patient who agrees with these concerns. She feels that sticking with APAP and NSAID, topical options is appropriate. Will also refer to PT. Encouraged hydration, stretching, massage. Return precautions discussed. Encouraged close f/u, appointment made with PCP. All of their questions and concerns were addressed, they are in agreemetn with this plan. HPI General Date/Time Provider Initiated Documentation: 10/16/21 07:56 . Limitations to Documentation: no limitations . Information obtained by: patient, RN notes reviewed and old records reviewed . History of Present Illness 81 year old F presents to the emergency department with the chief complaint of back and abdominal pain, described as mild (denies pain currently but becomes severe with movement), with intensity rated at 1. Quality is described as aching, and is localized to the back and abdomen. Patient reports no radiation. Patient started experiencing this day(s) and it has been intermittent. Immobilization improves symptom(s), Movement worsens symptoms . Patient notes no other symptoms.. Patient did receive the following treatments prior to arrival, none Related Data Home Medications Medication Instructions Recorded Confirmed blood sugar diagnostic (WyzAnt.comTouch #100 strips 02/25/15 10/26/21 Ultra Test strips) lancets 33 gauge (OneTouch Delica #100 ea 02/25/15 10/26/21 Lancets) metronidazole 0.75 % topical gel 1 applic topical DAILY #45 grams 02/27/16 10/26/21 sennosides 8.6 mg tablet (senna) 17.2 mg PO HS #180 tab-caps 04/06/19 10/26/21 acetaminophen 500 mg capsule 1,000 mg PO BID 03/15/20 10/26/21 sulfacetamide sodium-sulfur 10 %-5 1 applic topical HS PRN rash #25 04/19/20 10/26/21 % (w/v) lotion grams gabapentin 300 mg capsule 300 mg PO BID #180 tab-caps 12/15/20 10/26/21 losartan 50 mg tablet 50 mg PO DAILY #90 tab-caps 12/15/20 10/26/21 metformin 500 mg tablet 500 mg PO BID #180 tab-caps 12/15/20 10/26/21 rosuvastatin 10 mg tablet (Crestor) 10 mg PO DAILY #90 tabs 12/15/20 10/26/21 lidocaine 5 % topical patch 1 patch topical DAILY #15 ea 10/10/21 10/26/21 (Lidoderm) Previous Rx's Medication Instructions Recorded sennosides 8.6 mg tablet (senna) 17.2 mg PO HS #180 tab-caps 04/06/19 sulfacetamide sodium-sulfur 10 %-5 1 applic topical HS PRN rash #25 04/19/20 % (w/v) lotion grams gabapentin 300 mg capsule 300 mg PO BID #180 tab-caps 12/15/20 losartan 50 mg tablet 50 mg PO DAILY #90 tab-caps 12/15/20 metformin 500 mg tablet 500 mg PO BID #180 tab-caps 12/15/20 rosuvastatin 10 mg tablet (Crestor) 10 mg PO DAILY #90 tabs 12/15/20 lidocaine 5 % topical patch 1 patch topical DAILY #15 ea 10/10/21 (Lidoderm) Allergies Allergy/AdvReac Type Severity Reaction Status Date / Time amoxicillin trihydrate Allergy Severe RASH Verified 10/17/21 14:11 [From Augmentin] Penicillins Allergy Severe Skin Rash Verified 10/17/21 14:11 potassium clavulanate Allergy Severe RASH Verified 10/17/21 14:11 [From Augmentin] aspirin AdvReac Intermediate CONFUSION, Verified 10/17/21 14:11 TAKES IBUPROFEN OKAY pravastatin AdvReac Intermediate MYALGIAS Verified 10/17/21 14:11 simvastatin AdvReac Intermediate MUSCLE PAIN Verified 10/17/21 14:11 CO-Q10 AdvReac Mild MUSCLE PAIN Uncoded 10/17/21 14:11 General Stated Complaint: Abd Prob KELLEN: 3 Review of Systems Constitutional Constitutional: Reports as per HPI, Denies chills, Denies fever(s), Denies headache(s) and Denies poor appetite Eyes Eyes: Denies change in vision ENT Ears, Nose, Mouth, and Throat: Denies headache(s) Cardiovascular Cardiovascular: Reports as per HPI, Denies dyspnea and Denies dyspnea on exertion Respiratory Respiratory: Reports as per HPI, Denies chest congestion, Denies cough, Denies pain on inspiration, Denies pain with cough, Denies dyspnea, Denies dyspnea on exertion and Denies wheezing Gastrointestinal Gastrointestinal: Reports as per HPI, Denies diarrhea, Denies nausea and Denies vomiting Musculoskeletal Musculoskeletal: Reports as per HPI Integumentary/Breasts Skin/Breast: Reports as per HPI and Denies rash Neurologic Neurologic: Reports as per HPI and Denies headache(s) Allergic/Immunologic Allergic/Immunologic: Denies wheezing PFSH All Active Problems UTI (urinary tract infection) (Acute) Back pain (Acute) Parotid mass (Acute) DNR (do not resuscitate) (Acute) Physician orders for life-sustaining treatment (POLST) form indicates patient wish for [id number] status (Acute) Vitamin B12 deficiency (Acute 12/01/13) Primary osteoarthritis involving multiple joints (Acute) DJD knees and right hip Malignant neoplasm of skin (Acute) [id number] Hyperlipidemia (Acute) Essential hypertension (Acute 12/24/12) Diverticulosis of colon without diverticulitis (Acute 01/12/13) 12/12 episode diverticulitis Diabetes mellitus (Acute 07/17/12) Restless leg syndrome (Chronic) Rosacea (Chronic) Malignant melanoma of face (Chronic) Macular degeneration (Chronic) Constipation due to pain medication (Chronic) GERD (gastroesophageal reflux disease) (Chronic) Medical History Aftercare following explantation of hip joint prosthesis (06/27/14) Aftercare for long-term (current) use of antibiotics (06/27/14) B12 deficiency Enlarged lymph node Infection and inflammatory reaction due to internal joint prosthesis (06/27/14) 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 Sister No problems noted. Brother , 47 Non-Hodgkin's lymphoma Brother No problems noted. Brother No problems noted. Maternal Grandfather No problems noted. Paternal Grandfather No problems noted. Maternal Grandmother Diabetes Breast cancer Paternal Grandmother No problems noted. Son No problems noted. Son No problems noted. Daughter No problems noted. Daughter No problems noted. Daughter No problems noted. Daughter No problems noted. Social History Smoking/Tobacco Use Status: Never Second Hand Exposure: Yes Smoking risk assessment performed?: Yes Alcohol Intake: current Alcohol Intake frequency: holidays/special occasions only Alcohol type: beer, wine and hard liquor Drug use: Socially Substance use type: does not use Household members: spouse Communication Needs: Hard of Hearing Do you need help understanding health information?: Never Pets and animals: No Sexually active: Yes Do you think of yourself as: straight/heterosexual Current gender identity: female What is your relationship status?: How often do you talk on the phone with friends or family?: once per week How often do you get together with friends or relatives?: decline to answer How often do you attend confucianism or confucianist services?: decline to answer Do you belong to any clubs or organized social groups?: yes Panel score (0-1 are the most socially isolated patients): 2 Duration: < 15 minutes/day Frequency: 1-2 times per week Effie/Shinto: Episcopalian Special effie needs: Yes Seatbelt use: always Helmet use: Yes Helmet use: always Drive 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 Do you feel safe at home: Yes Do you feel safe in your relationship?: Yes Victim of physical abuse: No Victim of emotional abuse: No Victim of sexual abuse: No Would you like helpful sources: No Exam Const General: cooperative, healthy appearing, comfortable, no acute distress and well developed Nutritional Appearance: well nourished and overweight Orientation: alert, awake and oriented x3 HENMT Head: normal to inspection Ears: hearing grossly normal bilaterally Mouth: moist mucous membranes Chest Chest: normal inspection of the chest, normal palpation of entire chest wall and no crepitus Resp Effort & Inspection: normal respiratory effort, able to speak in complete sentences and no respiratory distress Auscultation: crackles on the left in the lower lung mina, no rales, no rhonchi and no wheezes Cardio Rate: regular rate Rhythm: regular rhythm Heart Sounds: S1 normal and S2 normal GI Inspection: normal to inspection, no edema and non-distended Palpation: soft, no hepatosplenomegaly, not firm, no guarding, not rigid and tender in the LUQ; with no rebound tenderness Auscultation: normal bowel sounds Back/Spine/Pelvis Back: no CVA tenderness Thoracic/Lumbar Spine: thoracic and lumbar spine normal to inspection (tender with palpation left side, no midline or paraspinal pain) Skin General skin exam: no rashes or lesions noted Trauma: no lacerations or abrasions Neuro General: patient alert, patient awake and patient oriented x3 Cognition: normal cognition Speech: speech normal Gait: normal gait Extrem General: normal to inspection, capillary refill normal, no pedal edema, no calf tenderness and normal gait Psych Appearance: grossly normal and well kempt Mental Status: mental status grossly normal Speech and Movement: speech and movement normal Course Vital Signs Vital signs: Vital Signs Temperature 36.3 C L 10/16/21 07:53 Pulse 84 10/16/21 07:53 Respiratory Rate 18 10/16/21 07:53 Blood Pressure 146/80 H 10/16/21 07:53 Pulse Oximetry 95 10/16/21 07:53 Temperature 36.3 C L 10/16/21 07:53 Temperature Source Temporal Artery Scan 10/16/21 07:53 Pulse 84 10/16/21 07:53 Respiratory Rate 18 10/16/21 07:53 Respiratory Effort 10/16/21 07:59 Blood Pressure 146/80 H 10/16/21 07:53 Blood Pressure Position Supine 10/16/21 07:53 Pulse Oximetry 95 10/16/21 07:53 Oxygen Delivery Method Room Air 10/16/21 07:53 Oxygen Flow Rate 0 10/16/21 07:53 Pain Level 0 10/16/21 07:53 Comment 10/16/21 07:53
[2021-10-16 08:35] LABS: Abs Immature Grans 0.04 10^3/uL (0.0-0.06); Absolute Basophil Count 0.06 10^3/uL (0.0-0.2); Absolute Eosinophil Count 0.27 10^3/uL (0.0-0.7); Absolute Monocyte Count 0.79 10^3/uL (0.1-0.8); Absolute Neutrophil Count 6.03 10^3/uL (1.2-6.7); Basophils % 0.6; Eosinophils % 2.9; HCT 38.5 % (36.0-46.0); HGB 12.5 g/dL (11.2-15.7); Immature Grans % 0.4; Lymphocytes % 23.4; MCH 30.9 pg (27.0-33.0); MCHC 32.5 % (32.0-36.0); MCV 95 fL (80-95); Monocytes % 8.4; Neutrophils % 64.3; RBC 4.04 10^6/uL (3.93-5.22); RDW 14.3 % (11.7-14.6); RDW-SD 50.2 fL; WBC 9.39 10^3/uL (4.4-10.8)
[2021-10-16] MEDS: Ibuprofen 600 MG TAB PO (08:35)
[2021-10-16] MEDS: Acetaminophen 325 MG TAB 650 MG PO (08:38)
[2021-10-16] MEDS: Normal Saline 500 ML IV (08:48)
[2021-10-16 09:09] LABS: ALT 21 U/L (14-59); AST 17 U/L (15-37); Albumin 3.5 g/dL (3.4-5.0); Alkaline Phosphatase 73 U/L (46-116); Anion Gap 10.1 mmol/L (3-11); BUN 31 mg/dL (7-18); Bilirubin, Total 0.4 mg/dL (0.2-1.0); CO2 22.9 mmol/L (21.0-32.0); CREATININE 1.3 mg/dL (0.55-1.02); Calcium 8.9 mg/dL (8.5-10.1); Chloride 105 mmol/L (98-107); Estimated GFR 39.51 (mL/min/1.73m2); Glucose 142 mg/dL (74-106); Lipase 84 U/L (73-393); Magnesium 2.1 mg/dL (1.8-2.4); Potassium 4.5 mmol/L (3.5-5.1); Sodium 138 mmol/L (136-145); Troponin I < 50 ng/L (<or=60)
[2021-10-16 10:02] LABS: Bilirubin Negative (Negative); Blood Negative (Negative); Clarity Clear (Clear); Glucose Negative (Negative); Ketones Negative (Negative); Leukocyte Esterase Small (Negative); Nitrite Negative (Negative); Specific Gravity 1.015 (1.005-1.025); Urobilinogen 0.2 EU/dL (Up TO 0.2)
[2021-10-16 10:10] LABS: Bacteria Rare HPF (Negative); C & S Indicated? Yes; Casts Negative LPF (Negative); Crystals Negative HPF (Negative); Epithelial Cells Few HPF (Negative); Mucus Negative (Negative); RBC Negative HPF (0-2)
[2021-10-16] MEDS: Lidocaine 5% Patch 1 PATCH TP (12:01)
== END 2021-10-16 11:56 | disposition home or self-care (01) ==
PROVIDERS: Emergency Provider Physician Assistant; PCP Family Medicine
DX: M54.9 Dorsalgia, unspecified (principal); R10.12 Left upper quadrant pain; R07.1 Chest pain on breathing
CPT/HCPCS: 36415; 80053; 83690; 93005; 96360; 99284; 71046; 81003; 81015; 83735; 84484; 85025; 87086; 93010

== ENCOUNTER 2022-12-20 11:05 | Outpatient (CLI) | payer MEDICARE, OTHER, SELFPAY ==
[2022-12-20 13:10] LABS: ALT 20 U/L (14-59); AST 12 U/L (15-37); Albumin 3.7 g/dL (3.4-5.0); Alkaline Phosphatase 71 U/L (46-116); Anion Gap 10.5 mmol/L (3-11); BUN 25 mg/dL (7-18); Bilirubin, Total 0.3 mg/dL (0.2-1.0); CO2 22.5 mmol/L (21.0-32.0); CREATININE 1.3 mg/dL (0.55-1.02); Calcium 9.6 mg/dL (8.5-10.1); Calculated LDL 51 mg/dL (<100); Chloride 105 mmol/L (98-107); Cholesterol 125 mg/dL (<200); Estimated GFR 41.57 (mL/min/1.73m2); Glucose 130 mg/dL (74-106); HDL Cholesterol 49 mg/dL (40-60); Sodium 138 mmol/L (136-145); Total Protein 7.4 g/dL (6.4-8.2); Triglyceride 126 mg/dL (<150)
== END 2022-12-20 11:06 | disposition home or self-care (01) ==
LOC: LOS 11:06
PROVIDERS: PCP Family Medicine; Referring Provider Family Medicine; Visit Provider Family Medicine
DX: I10 Essential (primary) hypertension (principal); E11.9 Type 2 diabetes mellitus without complications; E78.5 Hyperlipidemia, unspecified
CPT/HCPCS: 36415; 80053; 80061

== ENCOUNTER 2023-06-06 17:27 | Outpatient (REF) | payer MEDICARE, OTHER, SELFPAY ==
[2023-06-06 21:10] LABS: Microalb ug/mg Crea 23.3 ug/mg Cr
== END 2023-06-06 17:28 | disposition home or self-care (01) ==
LOC: LBN 17:27
PROVIDERS: PCP Family Medicine; Visit Provider Family Medicine
DX: E11.9 Type 2 diabetes mellitus without complications (principal)
CPT/HCPCS: 82043; 82570

== ENCOUNTER 2023-11-07 01:48 | Outpatient (CLI) | payer MEDICARE, OTHER, SELFPAY ==
[2023-11-07 10:18] LABS: ALT 18 U/L (14-59); AST 13 U/L (15-37); Albumin 3.7 g/dL (3.4-5.0); Alkaline Phosphatase 73 U/L (46-116); Anion Gap 10.5 mmol/L (3-11); BUN 14 mg/dL (7-18); Bilirubin, Total 0.33 mg/dL (0.2-1.0); CO2 24.5 mmol/L (21.0-32.0); CREATININE 1.2 mg/dL (0.55-1.02); Calcium 9.2 mg/dL (8.5-10.1); Calculated LDL 64 mg/dL (<100); Chloride 106 mmol/L (98-107); Cholesterol 139 mg/dL (<200); Estimated GFR 45.48 (mL/min/1.73m2); Glucose 167 mg/dL (74-106); HDL Cholesterol 50 mg/dL (40-60); Potassium 4.7 mmol/L (3.5-5.1); Sodium 141 mmol/L (136-145); Total Protein 7.3 g/dL (6.4-8.2); Triglyceride 126 mg/dL (<150)
[2023-11-07 11:21] LABS: Hemoglobin A1C 7.5 % (<5.7)
== END 2023-11-07 01:49 | disposition home or self-care (01) ==
LOC: LBO 01:49
PROVIDERS: PCP Family Medicine; Visit Provider Family Medicine
DX: E11.9 Type 2 diabetes mellitus without complications (principal); I10 Essential (primary) hypertension
CPT/HCPCS: 36415; 80053; 80061; 83036

== ENCOUNTER 2024-06-02 03:07 | Outpatient (CLI) | payer MEDICARE, OTHER, SELFPAY ==
[2024-06-02 12:45] LABS: ALT 15 U/L (14-59); AST 14 U/L (15-37); Albumin 3.7 g/dL (3.4-5.0); Alkaline Phosphatase 71 U/L (46-116); Anion Gap 9.7 mmol/L (3-11); BUN 20 mg/dL (7-18); Bilirubin, Total 0.32 mg/dL (0.2-1.0); CO2 25.3 mmol/L (21.0-32.0); CREATININE 1.2 mg/dL (0.55-1.02); Calcium 9.4 mg/dL (8.5-10.1); Chloride 109 mmol/L (98-107); Estimated GFR 45.19 (mL/min/1.73m2); Glucose 164 mg/dL (74-106); Potassium 4.4 mmol/L (3.5-5.1); Sodium 144 mmol/L (136-145)
[2024-06-02 12:47] LABS: Hemoglobin A1C 7.1 % (<5.7)
== END 2024-06-02 03:08 | disposition home or self-care (01) ==
PROVIDERS: PCP Family Medicine; Visit Provider Family Medicine
DX: I10 Essential (primary) hypertension (principal); E11.9 Type 2 diabetes mellitus without complications
CPT/HCPCS: 36415; 80053; 83036

== ENCOUNTER 2025-01-19 11:43 | Outpatient (REF) | payer MEDICARE, OTHER, SELFPAY ==
[2025-01-19 16:52] LABS: COMMENT (LAB VIEW ONLY) 122.26 mg/dL; Microalb ug/mg Crea 40.7 ug/mg Cr
== END 2025-01-19 11:44 | disposition home or self-care (01) ==
LOC: LBN 11:43
PROVIDERS: PCP Family Medicine; Visit Provider Family Medicine
DX: E11.9 Type 2 diabetes mellitus without complications (principal)
CPT/HCPCS: 82043; 82570